=== PATIENT | female | born 1940 | race Caucasian/White ===

== ENCOUNTER → 2016-06-27 | Outpatient (CLI) | payer MEDICARE ==
[2016-06-27 15:27] LABS: Calcium 9.8 mg/dL (8.4-10.2); Potassium 3.9 mmol/L (3.5-5.1); Total Bilirubin 0.6 mg/dL (0.2-1.3); Total Protein 6.8 g/dL (6.3-8.2)
== END | disposition home or self-care (01) ==
LOC: LABWHC1 14:47
PROVIDERS: ATTEND Internal Medicine Interventional Cardiology
DX: E78.2 Mixed hyperlipidemia (principal); I48.0 Paroxysmal atrial fibrillation
CPT/HCPCS: 36415; 80053; 80061; 84443

== ENCOUNTER 2016-07-29 08:51 | Day surgery (SDC) | payer MEDICARE ==
[2016-07-24 14:45] VITALS: BMI 45.6
[~2016-07-29 08:51] MED LIST: ALPRAZolam 0.25 MG TAB PO PRN; ASPIRIN 325 MG TAB PO ONE; SODIUM CHLORIDE 0.9% 1,000 ML in EMPTY BAG 1 BAG IV ONE
[2016-07-29] MEDS ORDERED: ASPIRIN 81 MG CHEW ONE (09:25)
[2016-07-29 09:42] LABS: Glucose,Whole Blood 129 mg/dL (75-99)
[2016-07-29 09:53] VITALS: RESP 18
[2016-07-29 10:06] LABS: Basophils # (A) 0.1 k/uL (0-0.2); Basophils % (A) 1 %; CHCM 33.7; Eosinophils # (A) 0.1 k/uL (0-0.7); Eosinophils % (A) 1 %; HCT 39.9 % (34.0-46.0); HDW 3.62; HGB 12.9 gm/dL (11.4-16.0); Luc # (Auto) 0.25; Luc % (Auto) 2; Lymphocytes # (A) 1.9 k/uL (1.0-4.8); Lymphocytes % (A) 19 %; MCH 28.8 pg (25.0-35.0); MCHC 32.3 g/dL (31.0-37.0); MCV 89.3 fL (80.0-100.0); Mean Platelet Volume 7.1; Monocytes # (A) 0.5 k/uL (0-1.0); Monocytes % (A) 4 %; Neutrophils # (A) 7.6 k/uL (1.3-7.7); Neutrophils % (A) 73 %; Poikilocytosis Slight; RBC 4.46 m/uL (3.80-5.40); RDW 14.8 % (11.5-15.5); WBC 10.5 k/uL (3.8-10.6); WBC (Perox) 10.69
[2016-07-29 10:20] LABS: Anion Gap 11 mmol/L; Blood Urea Nitrogen 22 mg/dL (7-17); Calcium 9.6 mg/dL (8.4-10.2); Carbon Dioxide 34 mmol/L (22-30); Chloride 100 mmol/L (98-107); Glucose 124 mg/dL (74-99); Non-African American GFR(MDRD) 59 (>60 ml/min/1.73 sqM); Potassium 3.8 mmol/L (3.5-5.1); Sodium 145 mmol/L (137-145)
[2016-07-29] MEDS ORDERED: amLODIPine 5 MG TAB PO STA ×2 (10:53→13:31)
[2016-07-29] MEDS ORDERED: amLODIPine 5 MG TAB PO ONE ×2 (11:00→15:55)
[2016-07-29] MEDS ORDERED: SODIUM CHLORIDE 0.9% (PF) 10 ML VIAL ONE (12:11)
[2016-07-29] MEDS ORDERED: fentaNYL (PF) 50 MCG/ML 2 ML AMP ONE (12:11)
[2016-07-29] MEDS ORDERED: VERAPAMIL 2.5 MG/ML 2 ML AMP ONE (12:11)
[2016-07-29] MEDS ORDERED: LIDOCAINE 2% INJ 20 MG/ML (20 ML MDV) ONE (12:11)
[2016-07-29] MEDS ORDERED: fentaNYL (PF) 50 MCG/ML 2 ML AMP IV ONE (12:20)
[2016-07-29] MEDS: LIDOCAINE 2% INJ 20 MG/ML SQ ONE ×2 (12:22→12:36)
[2016-07-29] MEDS ORDERED: HEPARIN SODIUM 1,000 UNIT/ML VIAL ONE (12:22)
[2016-07-29] MEDS ORDERED: VERAPAMIL SYRINGE (5 MG/10 ML) INTRAARTER ONE (12:23)
[2016-07-29] MEDS ORDERED: HEPARIN SODIUM 1,000 UNIT/ML VIAL IV ONE (12:41)
[2016-07-29] MEDS ORDERED: IODIXANOL 320 MG/ML 100 ML INTRAARTER ONE (12:45)
[2016-07-29] MEDS ORDERED: RX INFO: IV CONTRAST WAS GIVEN 1 EACH MISC MISCELLANE PRN (12:53)
[2016-07-29] MEDS ORDERED: SODIUM CHLORIDE 0.9% 1,000 ML IV SCH (13:00)
[2016-07-29] MEDS ORDERED: MECLIZINE 25 MG TAB PO SCH (16:00)
[2016-07-29 17:23] LABS: Glucose,Whole Blood 100 mg/dL (75-99)
[2016-07-29 19:03] VITALS: BP 121/95; PULSE 106
[2016-07-29 19:34] VITALS: TEMP 98
[2016-07-29] MEDS ORDERED: ALBUTEROL INHALER 60 PUFF/8 GM INHALER INHALATION SCH (21:00)
[2016-07-29] MEDS ORDERED: NON-FORMULARY DRUG (Umeclidinium Brm/Vilanterol Tr [Anoro Ellipta 62.5-25 Mcg Inh] 1 PUFF) INHALATION SCH (21:00)
[2016-07-29] MEDS ORDERED: INSULIN GLARGINE 100 UNIT/ML 10 ML VIAL SQ SCH (21:00)
--- NOTE | 2016-07-29 22:35 | CC ---
Mrs. Dominguez is a 76-year-old female with a known history of hypertension and hyperlipidemia and diabetes mellitus, who presented with symptoms of progressive dyspnea and episode of chest discomfort. She had an abnormal myocardial perfusion imaging. In view of that, recommendation made regarding cardiac catheterization. The procedure as well as the risks, benefits and complications were discussed with the patient, who is in full understanding and agreement. PROCEDURE: Patient was brought to the operations label clerk in the fasting semi-sedated state after receiving fentanyl and Benadryl. She was draped and prepped in the conventional fashion. Using Xylocaine anesthesia and Seldinger technique, a 6 Peruvian sheath was introduced in the right radial artery. Attempt to advance the wire in the descending aorta were unsuccessful because of severe tortuosity. At that point, using Xylocaine anesthesia and Seldinger technique, a 6 Peruvian sheath was introduced in right femoral artery. Selective right and left coronary angiography using 6 Peruvian 4 bend right Bobby catheter, multiple views of the coronary arteries, including hemiaxial views, were obtained. Following that, a 6 [place]uvian tight pigtail catheter was introduced into the left ventricle and a 30-degree WADE view of the left ventricle was obtained. Following that, catheter and sheaths were removed. Hemostasis was obtained with deployment of an Angio-Seal and a TR band on the right radial artery. Patient was returned to her room. there was no immediate complication. She received intra-arterial verapamil as well as 5000 units of intravenous heparin. FINDINGS: Left main: This is a large-size vessel bifurcating into the left circumflex, left anterior descending artery. Left main coronary artery is without any obstructive disease. Left anterior descending artery: This was a large-size vessel reaching toward the apex with a wraparound the apex segment, giving rise to a large proximal diagonal branch. The left anterior descending artery proximally has 10% to 20% plaque. The rest of the vessel has no high-grade stenosis. Left circumflex: This is a nondominant vessel, giving rise to 3 obtuse marginal branches. The left circumflex as well as its branches have no evidence of obstructive coronary artery disease. Right coronary artery: This is a large dominant vessel, bifurcating distally into PDA and posterolateral segment and branches, proximally has a 40% plaque. The rest of the vessel has no evidence of high-grade stenosis. LEFT VENTRICULOGRAM: Left ventriculogram was performed in 30-degree WADE view and revealed normal size and systolic function. Ejection fraction was 60%. There is no significant mitral regurgitation. HEMODYNAMICS: There was no gradient across the aortic valve. The left ventricular end-diastolic pressure was 24 mm. CONCLUSION: 1. Mild to moderate disease in proximal right coronary artery with mild disease in the left anterior descending artery. 2. Normal left ventricular size and systolic function. RECOMMENDATIONS: In view of all the findings and anatomy, I recommend continued medical therapy with aggressive risk factor modifications being initiated. Those findings and recommendations were discussed with the patient and her family, who are in full understanding and agreement. BRENDON
--- NOTE | 2016-07-29 22:38 | LTR ---
July 29, 2016 RE: Tamar Dominguez Dear Dr. Alonso: I had the pleasure to perform cardiac catheterization on Mrs. Dominguez at [facility] on the 29 of July and a full copy of the procedure note will be forwarded to you. In brief, she was found to have mild to moderate disease in the proximal right coronary artery and mild disease in the LAD and based on these findings, I have recommended continued medical therapy with aggressive risk factor medications initiated. Thank you again for allowing me to participate in this patient's care. Please feel free to call for any questions. Sincerely yours, VALENTÍN COPPOLA MD
[2016-07-30] MEDS ORDERED: amLODIPine 5 MG TAB PO SCH (09:00)
[2016-07-30] MEDS ORDERED: NON-FORMULARY DRUG (Omeprazole [Omeprazole] 20 MG) PO SCH (09:00)
[2016-07-30] MEDS ORDERED: MULTIVITAMINS, THERA 1 EACH TAB PO SCH (09:00)
[2016-07-30] MEDS ORDERED: NON-FORMULARY DRUG (Aspirin Ec 81 MG) PO SCH (09:00)
[2016-07-30] MEDS ORDERED: CLOPIDOGREL 75 MG TAB PO SCH (09:00)
[2016-07-30] MEDS ORDERED: NON-FORMULARY DRUG (Ubidecarenone [Co Q-10] 200 MG) PO SCH (09:00)
[2016-07-30] MEDS ORDERED: POTASSIUM CHLORIDE 20 MEQ PO SCH (09:00)
[2016-07-30] MEDS ORDERED: LISINOPRIL-HCTZ 20-12.5 MG 1 EACH TAB PO SCH (09:00)
[2016-07-30] MEDS ORDERED: NEBIVOLOL HCL 20 MG PO SCH (09:00)
== END 2016-07-29 19:25 | disposition home or self-care (01) ==
LOC: CATHCVL 08:51
PROVIDERS: ATTEND Internal Medicine Interventional Cardiology
DX: I25.10 Atherosclerotic heart disease of native coronary artery without angina pectoris (principal); I48.0 Paroxysmal atrial fibrillation; Z79.02 Long term (current) use of antithrombotics/antiplatelets; I10 Essential (primary) hypertension; E11.9 Type 2 diabetes mellitus without complications; Z79.4 Long term (current) use of insulin; E78.5 Hyperlipidemia, unspecified; Z82.49 Family history of ischemic heart disease and other diseases of the circulatory system; Z79.82 Long term (current) use of aspirin; Z79.899 Other long term (current) drug therapy; Z88.2 Allergy status to sulfonamides; Z88.7 Allergy status to serum and vaccine; Z91.048 Other nonmedicinal substance allergy status
CPT/HCPCS: 93458; 80048; 85025; 99156; 99157 ×2; C1760; C1894 ×2; C1769 ×2; J2001; Q9967; J3010; J1644

== ENCOUNTER → 2016-08-07 | Outpatient (CLI) | payer MEDICARE ==
--- NOTE | 2016-08-13 10:54 | P.ARTDOP ---
Arterial Doppler Upper EXTREMITY ARTERIAL DOPPLER: DATE OF SERVICE: 08/07/2016 Reason for study: Arm swelling post cath. Doppler waveforms: Multiphasic throughout axillary brachial radial and ulnar. Pulse volume recording: Normal configuration including digits on the right. Pressure gradients: None. No segmental or right to left pressure gradients Digital pressures are normal Impression: Normal upper extremity arterial Doppler limited to the right.
== END | disposition home or self-care (01) ==
LOC: RADUSWWP 12:20
PROVIDERS: ATTEND Internal Medicine Interventional Cardiology
DX: M79.89 Other specified soft tissue disorders (principal)
CPT/HCPCS: 93922

== ENCOUNTER → 2016-11-14 | Outpatient (CLI) | payer MEDICARE ==
[2016-11-14 12:25] LABS: ALT 32 U/L (9-52); AST 19 U/L (14-36); Alkaline Phosphatase 122 U/L (38-126); Anion Gap 9 mmol/L; Blood Urea Nitrogen 21 mg/dL (7-17); Calcium 9.1 mg/dL (8.4-10.2); Carbon Dioxide 28 mmol/L (22-30); Chloride 101 mmol/L (98-107); Cholesterol 132 mg/dL (<200); Glucose 127 mg/dL (74-99); HDL Cholesterol 41 mg/dL (40-60); Non-African American GFR(MDRD) 54 (>60 ml/min/1.73 sqM); Potassium 4.2 mmol/L (3.5-5.1); Sodium 138 mmol/L (137-145); Total Bilirubin 0.9 mg/dL (0.2-1.3); Total Protein 7.1 g/dL (6.3-8.2); Triglycerides 183 mg/dL (<150)
== END | disposition home or self-care (01) ==
LOC: LABWHC1 11:44
PROVIDERS: ATTEND Internal Medicine Interventional Cardiology
DX: I25.10 Atherosclerotic heart disease of native coronary artery without angina pectoris (principal); E78.2 Mixed hyperlipidemia
CPT/HCPCS: 36415; 80053; 80061

== ENCOUNTER 2017-01-16 15:22 | Inpatient (IN) | payer MEDICARE ==
[2017-01-16 15:49] LABS: Glucose,Whole Blood 119 mg/dL (75-99)
[2017-01-16] MEDS: ATROPINE SULFATE 0.1 MG/ML 10ML SYRINGE IV STA ×3 (15:50→20:13)
[2017-01-16 15:59] LABS: Anisocytosis Slight; Basophils % (A) 0 %; CHCM 31.5; Eosinophils # (A) 0.1 k/uL (0-0.7); Eosinophils % (A) 0 %; HDW 2.75; HGB 11.6 gm/dL (11.4-16.0); Hypochromasia Slight; Luc # (Auto) 0.19; Luc % (Auto) 1; Lymphocytes % (A) 5 %; MCH 29.8 pg (25.0-35.0); MCHC 32.3 g/dL (31.0-37.0); MCV 92.3 fL (80.0-100.0); Mean Platelet Volume 9.2; Monocytes # (A) 0.6 k/uL (0-1.0); Monocytes % (A) 3 %; Neutrophils % (A) 91 %; RDW 16.7 % (11.5-15.5); WBC 20.9 k/uL (3.8-10.6); WBC (Perox) 20.64
--- NOTE | 2017-01-16 16:00 | ED ---
General Adult HPI - General Chief complaint: Arrhythmia/Palpitations Stated complaint: Altered Mental Status Time Seen by Provider: 01/16/17 15:25 Source: patient, EMS, RN notes reviewed Mode of arrival: EMS Limitations: altered mental status - History of Present Illness Initial comments: Patient is a pleasant 76-year-old female presenting to the emergency department by EMS for drowsiness. Patient states she feels fatigued and drowsy however has no other complaints. Patient is overall a poor historian. Patient denies any chest pain or dyspnea. EMS reports heart rate in the 30s. EMS was unable to obtain IV access. Symptoms have been present for the past few days. Patient denies dyspnea. EMS did get systolic blood pressure over 100 on 2 occasions. - Related Data Home Medications Medication Instructions Recorded Confirmed Albuterol Inhaler [Ventolin Hfa 2 puff INHALATION RT-Q4H PRN 04/29/16 01/16/17 Inhaler] Aspirin EC [Ecotrin Low Dose] 81 mg PO DAILY 04/29/16 01/16/17 Omeprazole 20 mg PO DAILY 04/29/16 01/16/17 Furosemide [Lasix] 40 mg PO DAILY 07/24/16 01/16/17 Insulin Lispro [humaLOG Kwikpen] See Protocol SQ AC-TID PRN 07/24/16 01/16/17 Meclizine [Antivert] 25 mg PO TID 07/24/16 01/16/17 Nebivolol HCl [Bystolic] 20 mg PO DAILY 07/24/16 01/16/17 Albuterol Nebulized [Ventolin 2.5 mg INHALATION RT-Q4H PRN 01/16/17 01/16/17 Nebulized] Allopurinol [Zyloprim] 300 mg PO DAILY 01/16/17 01/16/17 Amiodarone [Cordarone] 200 mg PO BID 01/16/17 01/16/17 Atorvastatin [Lipitor] 40 mg PO DAILY 01/16/17 01/16/17 Isosorbide Mononitrate ER [Imdur] 30 mg PO DAILY 01/16/17 01/16/17 Levothyroxine Sodium [Synthroid] 75 mcg PO DAILY 01/16/17 01/16/17 Lisinopril 30 mg PO DAILY 01/16/17 01/16/17 Loratadine [Claritin] 10 mg PO DAILY 01/16/17 01/16/17 Potassium Chloride [Klor-Con 20] 20 meq PO DAILY 01/16/17 01/16/17 Rivaroxaban [Xarelto] 15 mg PO DAILY 01/16/17 01/16/17 Spironolactone [Aldactone] 50 mg PO DAILY 01/16/17 01/16/17 Previous Rx's Medication Instructions Recorded Insulin Glargine [Lantus] 40 unit SQ HS #1 vial 05/07/16 amLODIPine [Norvasc] 5 mg PO DAILY #90 tab 07/29/16 Allergies Allergy/AdvReac Type Severity Reaction Status Date / Time iron Allergy Rash/Hives Verified 07/29/16 09:23 Sulfa (Sulfonamide Allergy Rash/Hives Verified 07/29/16 09:23 Antibiotics) Tetanus Vaccines and Toxoid Allergy Swelling Verified 07/29/16 09:23 Review of Systems ROS Statement: Those systems with pertinent positive or pertinent negative responses have been documented in the HPI. ROS Other: All systems not noted in ROS Statement are negative. Constitutional: Denies: fever Eyes: Denies: eye pain ENT: Denies: ear pain Respiratory: Denies: cough, dyspnea Cardiovascular: Denies: chest pain, palpitations Endocrine: Reports: fatigue Gastrointestinal: Denies: abdominal pain Genitourinary: Denies: dysuria Musculoskeletal: Denies: back pain Skin: Denies: rash Neurological: Denies: headache Past Medical History Past Medical History: Atrial Fibrillation, COPD, Diabetes Mellitus, Deep Vein Thrombosis (DVT), GERD/Reflux, Hyperlipidemia, Hypertension, Osteoarthritis (OA) , Rheumatoid Arthritis (RA), Thyroid Disorder Additional Past Medical History / Comment(s): migraines, "bleeding in kidney" History of Any Multi-Drug Resistant Organisms: None Reported Past Surgical History: Hysterectomy, Joint Replacement, Orthopedic Surgery Additional Past Surgical History / Comment(s): rt knee replacement, heel spur left foot, sanjana cataracts Past Anesthesia/Blood Transfusion Reactions: No Reported Reaction Past Psychological History: No Psychological Hx Reported Smoking Status: Former smoker Past Alcohol Use History: None Reported Past Drug Use History: None Reported - Past Family History Mother Family Medical History: No Reported History General Exam Limitations: altered mental status General appearance: alert Head exam: Present: atraumatic Eye exam: Present: normal appearance, PERRL ENT exam: Present: normal oropharynx Neck exam: Present: normal inspection Respiratory exam: Present: rales (Mild bilateral bases) Cardiovascular Exam: Present: bradycardia GI/Abdominal exam: Present: soft. Absent: tenderness Extremities exam: Present: pedal edema Neurological exam: Present: alert. Absent: motor sensory deficit Expanded Patient oriented to: Present: person, place. Absent: time Psychiatric exam: Present: normal affect, normal mood Skin exam: Present: normal color Course Vital Signs 01/16/17 01/16/17 01/16/17 15:35 15:52 15:55 Temperature 96.5 F L Pulse Rate 30 L 40 L 38 L Respiratory 18 18 18 Rate Blood Pressure 68/42 98/52 106/49 01/16/17 01/16/17 01/16/17 15:58 16:21 16:26 Temperature Pulse Rate 29 L 30 L 32 L Respiratory 18 18 18 Rate Blood Pressure 95/53 89/53 01/16/17 01/16/17 01/16/17 16:28 16:35 16:43 Temperature Pulse Rate 38 L 37 L 39 L Respiratory 18 18 18 Rate Blood Pressure 108/50 104/54 117/56 - Reevaluation(s) Reevaluation #1: 01/16/17 15:57 Cardiology has been paged Systolic blood pressure 96 then 108 following 0.5 of atropine. Heart rate 38. 01/16/17 16:03 Case was discussed in detail with Dr. Dozier who does recommend starting dopamine at 5. 01/16/17 16:20 Patient was seen by Dr. Dozier in emergency Department who is interested and electrolytes and concern regarding potassium. He feels rhythm is likely junctional bradycardia rather than true third-degree heart block. Case was discussed with Dr. Martinez, who will admit for Dr. Alonso. Dr. Voss has been paged as requested for critical care consult. 01/16/17 16:49 Case was discussed with Dr. Voss, who will consult. Case was also discussed with Dr. Barber. She does request consult with Dr. Carmichael for line placement and will have dialysis done following this. 01/16/17 16:56 Case also discussed with Dr. Carmichael who will come to evaluate patient. Family is now present and family has been updated. EKG Findings - EKG Comments: EKG Findings:: 33 heart block with a rate of 30. QRS 126. QT 564. QTC 398. Left axis. Nonspecific intraventricular block. Prominent T waves. Medical Decision Making - Lab Data Result diagrams: 01/16/17 15:45 01/16/17 15:45 Lab Results 01/16/17 01/16/17 01/16/17 Range/Units 15:29 15:45 15:45 WBC 20.9 H (3.8-10.6) k/uL RBC 3.90 (3.80-5.40) m/uL Hgb 11.6 (11.4-16.0) gm/dL Hct 36.0 (34.0-46.0) % MCV 92.3 (80.0-100.0) fL MCH 29.8 (25.0-35.0) pg MCHC 32.3 (31.0-37.0) g/dL RDW 16.7 H (11.5-15.5) % Plt Count 350 (150-450) k/uL Neutrophils % 91 % Lymphocytes % 5 % Monocytes % 3 % Eosinophils % 0 % Basophils % 0 % Neutrophils # 19.0 H (1.3-7.7) k/uL Lymphocytes # 1.0 (1.0-4.8) k/uL Monocytes # 0.6 (0-1.0) k/uL Eosinophils # 0.1 (0-0.7) k/uL Basophils # 0.0 (0-0.2) k/uL Hypochromasia Slight Anisocytosis Slight APTT (22.0-30.0) sec Sodium (137-145) mmol/L Potassium (3.5-5.1) mmol/L Chloride (98-107) mmol/L Carbon Dioxide (22-30) mmol/L Anion Gap mmol/L BUN (7-17) mg/dL Creatinine (0.52-1.04) mg/dL Est GFR (MDRD) Af Amer (>60 ml/min/1.73 sqM) Est GFR (MDRD) Non-Af (>60 ml/min/1.73 sqM) Glucose (74-99) mg/dL POC Glucose (mg/dL) 119 H (75-99) mg/dL POC Glu Lunch Counter Manager ID Francois, Snow Calcium (8.4-10.2) mg/dL Magnesium (1.6-2.3) mg/dL Total Bilirubin (0.2-1.3) mg/dL AST (14-36) U/L ALT (9-52) U/L Alkaline Phosphatase (38-126) U/L Total Creatine Kinase 193 H (30-135) U/L CK-MB (CK-2) 2.1 (0.0-2.4) ng/mL CK-MB (CK-2) Rel Index 1.1 Troponin I <0.012 (0.000-0.034) ng/mL Total Protein (6.3-8.2) g/dL Albumin (3.5-5.0) g/dL TSH (0.465-4.680) mIU/L Free T4 (0.78-2.19) ng/dL Free T3 pg/mL (2.8-5.3) pg/ml 01/16/17 01/16/17 Range/Units 15:45 15:45 WBC (3.8-10.6) k/uL RBC (3.80-5.40) m/uL Hgb (11.4-16.0) gm/dL Hct (34.0-46.0) % MCV (80.0-100.0) fL MCH (25.0-35.0) pg MCHC (31.0-37.0) g/dL RDW (11.5-15.5) % Plt Count (150-450) k/uL Neutrophils % % Lymphocytes % % Monocytes % % Eosinophils % % Basophils % % Neutrophils # (1.3-7.7) k/uL Lymphocytes # (1.0-4.8) k/uL Monocytes # (0-1.0) k/uL Eosinophils # (0-0.7) k/uL Basophils # (0-0.2) k/uL Hypochromasia Anisocytosis APTT 32.1 H (22.0-30.0) sec Sodium 133 L (137-145) mmol/L Potassium 7.8 H* (3.5-5.1) mmol/L Chloride 104 (98-107) mmol/L Carbon Dioxide 9 L* (22-30) mmol/L Anion Gap 20 mmol/L BUN 191 H* (7-17) mg/dL Creatinine 8.80 H* (0.52-1.04) mg/dL Est GFR (MDRD) Af Amer 5 (>60 ml/min/1.73 sqM) Est GFR (MDRD) Non-Af 4 (>60 ml/min/1.73 sqM) Glucose 126 H (74-99) mg/dL POC Glucose (mg/dL) (75-99) mg/dL POC Glu Lunch Counter Manager ID Calcium 9.6 (8.4-10.2) mg/dL Magnesium 2.7 H (1.6-2.3) mg/dL Total Bilirubin 0.2 (0.2-1.3) mg/dL AST 17 (14-36) U/L ALT 45 (9-52) U/L Alkaline Phosphatase 106 (38-126) U/L Total Creatine Kinase (30-135) U/L CK-MB (CK-2) (0.0-2.4) ng/mL CK-MB (CK-2) Rel Index Troponin I (0.000-0.034) ng/mL Total Protein 7.0 (6.3-8.2) g/dL Albumin 4.2 (3.5-5.0) g/dL TSH 8.090 H (0.465-4.680) mIU/L Free T4 1.29 (0.78-2.19) ng/dL Free T3 pg/mL 2.3 L (2.8-5.3) pg/ml - Radiology Data Radiology results: image reviewed (1 view chest x-ray does show stable cardiomegaly. Right hilum prominence again noted.) Critical Care Time Critical Care Time: Yes Total Critical Care Time: 60 Disposition Clinical Impression: Acute renal failure (ARF), Symptomatic bradycardia, Hyperkalemia Disposition: ADMITTED IP TO THIS [facility] Condition: Critical Referrals: Linnea Alonso DO [Primary Care Provider] - 1-2 days Decision Time: 16:57
[2017-01-16 16:02] LABS: Calcium 9.6 mg/dL (8.4-10.2); Magnesium 2.7 mg/dL (1.6-2.3); Total Bilirubin 0.2 mg/dL (0.2-1.3)
[2017-01-16] MEDS ORDERED: DOPamine DRIP 800 MG in DEXTROSE/WATER 1 500ML.BAG IV ONE (16:02)
--- NOTE | 2017-01-16 16:10 | XR ---
EXAMINATION TYPE: XR chest 1V portable DATE OF EXAM: 01/16/2017 COMPARISON: Prior chest x-ray 05/04/2016 HISTORY: Dysrhythmia TECHNIQUE: Single frontal view of the chest is obtained. FINDINGS: Similar findings are noted. The heart is enlarged. Patient is rotated. No evident pneumoth orax or pleural effusion. Pulmonary vascularity and rebecca are stable. There are overlying defibrillato r pad and leads. IMPRESSION: Stable cardiomegaly. There may be underlying pulmonary artery hypertension, prominence o f the right hilum again noted, exam is rotated, follow-up recommended.
[2017-01-16] MEDS ORDERED: ATROPINE SULFATE 0.1 MG/ML 10ML SYRINGE IV STA (16:16)
[2017-01-16] MEDS ORDERED: METOCLOPRAMIDE 5 MG/ML 2 ML VIAL IVP STA (16:23)
[2017-01-16 16:27] LABS: Potassium 7.8 mmol/L (3.5-5.1)
[2017-01-16 16:30] LABS: Creatine Kinase 193 U/L (30-135)
[2017-01-16] MEDS ORDERED: INSULIN REGULAR 100 UNIT/ML VIAL IV ONE (16:30)
[2017-01-16] MEDS ORDERED: DEXTROSE 50%-WATER 50 ML SYRINGE IVP STA (16:31)
[2017-01-16] MEDS ORDERED: ALBUTEROL NEBULIZED 2.5 MG/3 ML INHALATION STA (16:31)
[2017-01-16] MEDS ORDERED: SODIUM CHLORIDE 0.9% 1,000 ML IV STA (16:33)
[2017-01-16] MEDS ORDERED: SODIUM BICARB 8.4% 50 ML SYR (1 MEQ/ML) IV STA (16:33)
[2017-01-16] MEDS ORDERED: FUROSEMIDE 10 MG/ML 4 ML VIAL IV STA (16:35)
[2017-01-16 16:43] LABS: Creatine Kinase MB 2.1 ng/mL (0.0-2.4); Troponin I <0.012 ng/mL (0.000-0.034)
[2017-01-16] MEDS ORDERED: NALOXONE 0.4 MG/ML 1 ML VIAL IV PRN (16:57)
[2017-01-16] MEDS ORDERED: CALCIUM GLUCONATE 1,000 MG in SODIUM CHLORIDE 0.9% 100 ML IVPB ONE ×2 (17:00→21:12)
--- NOTE | 2017-01-16 17:55 | P.CRDCN ---
History of Present Illness Consult date: 01/16/17 History of present illness: His is a 76-year-old female who came to the emergency room brought on by EMS for drowsiness. Apparently patient was called to assess the patient because of patient's fatigue and drowsiness. On arrival the EMS found the patient has a slow heart rate in the 30s. Blood pressure has been low, though they could record blood pressure of 100 and couple of occasions. In the emergency room patient remained in bradycardia. Patient was given atropine with mild response. Blood pressure is about 100 systolic. Patient seemed to be drowsy and lethargic and unable to give any detailed history. She is able to follow commands. Her rhythm showed absence of P waves with slow junctional rhythm with peaked T waves in anterior leads, highly size to hyperkalemia. Lab work subsequent to confirm that patient had acute renal failure with a creatinine about 8 and potassium of 7.8. He had a physician called us think that patient had third-degree heart block but close evaluation. EKG was not consistent with third-degree heart block. Patient was initially started on IV dopamine. He emergency room. Patient was advised to give the IV sodium bicarbonate, calcium and also insulin with glucose. A stat nephrology consult is requested for possible dialysis. Spoke with the family and explain the clinical situation. Patient is also found to be on amiodarone along with Aldactone. Those medications will be held for now. Further recommendations depend upon clinical course. Prognosis is guarded Review of Systems Not obtained Past Medical History Past Medical History: Atrial Fibrillation, COPD, Diabetes Mellitus, Deep Vein Thrombosis (DVT), GERD/Reflux, Hyperlipidemia, Hypertension, Osteoarthritis (OA) , Rheumatoid Arthritis (RA), Thyroid Disorder Additional Past Medical History / Comment(s): migraines, "bleeding in kidney" History of Any Multi-Drug Resistant Organisms: None Reported Past Surgical History: Hysterectomy, Joint Replacement, Orthopedic Surgery Additional Past Surgical History / Comment(s): rt knee replacement, heel spur left foot, sanjana cataracts Past Anesthesia/Blood Transfusion Reactions: No Reported Reaction Past Psychological History: No Psychological Hx Reported Smoking Status: Former smoker Past Alcohol Use History: None Reported Past Drug Use History: None Reported - Past Family History Mother Family Medical History: No Reported History Medications and Allergies Home Medications Medication Instructions Recorded Confirmed Type Albuterol Inhaler [Ventolin Hfa 2 puff INHALATION RT-Q4H PRN 04/29/16 01/16/17 History Inhaler] Aspirin EC [Ecotrin Low Dose] 81 mg PO DAILY 04/29/16 01/16/17 History Omeprazole 20 mg PO DAILY 04/29/16 01/16/17 History Furosemide [Lasix] 40 mg PO DAILY 07/24/16 01/16/17 History Insulin Lispro [humaLOG Kwikpen] See Protocol SQ AC-TID PRN 07/24/16 01/16/17 History Meclizine [Antivert] 25 mg PO TID 07/24/16 01/16/17 History Nebivolol HCl [Bystolic] 20 mg PO DAILY 07/24/16 01/16/17 History Albuterol Nebulized [Ventolin 2.5 mg INHALATION RT-Q4H PRN 01/16/17 01/16/17 History Nebulized] Allopurinol [Zyloprim] 300 mg PO DAILY 01/16/17 01/16/17 History Amiodarone [Cordarone] 200 mg PO BID 01/16/17 01/16/17 History Atorvastatin [Lipitor] 40 mg PO DAILY 01/16/17 01/16/17 History Isosorbide Mononitrate ER [Imdur] 30 mg PO DAILY 01/16/17 01/16/17 History Levothyroxine Sodium [Synthroid] 75 mcg PO DAILY 01/16/17 01/16/17 History Lisinopril 30 mg PO DAILY 01/16/17 01/16/17 History Loratadine [Claritin] 10 mg PO DAILY 01/16/17 01/16/17 History Potassium Chloride [Klor-Con 20] 20 meq PO DAILY 01/16/17 01/16/17 History Rivaroxaban [Xarelto] 15 mg PO DAILY 01/16/17 01/16/17 History Spironolactone [Aldactone] 50 mg PO DAILY 01/16/17 01/16/17 History Allergies Allergy/AdvReac Type Severity Reaction Status Date / Time iron Allergy Rash/Hives Verified 07/29/16 09:23 Sulfa (Sulfonamide Allergy Rash/Hives Verified 07/29/16 09:23 Antibiotics) Tetanus Vaccines and Toxoid Allergy Swelling Verified 07/29/16 09:23 Physical Exam Vitals: Vital Signs Temp Pulse Resp BP 01/16/17 16:54 38 L 18 104/52 01/16/17 16:43 39 L 18 117/56 01/16/17 16:35 37 L 18 104/54 01/16/17 16:28 38 L 18 108/50 01/16/17 16:26 32 L 18 89/53 01/16/17 16:21 30 L 18 95/53 01/16/17 15:58 29 L 18 01/16/17 15:55 38 L 18 106/49 01/16/17 15:52 40 L 18 98/52 01/16/17 15:35 96.5 F L 30 L 18 68/42 Intake and Output 01/16/17 01/16/17 01/16/17 06:59 14:59 22:59 Other: Weight 131.088 kg Patient Weight 01/17/17 06:59 Weight 131.088 kg GENERAL EXAM: Patient is awake, following simple commands but seemed to be disoriented. HEENT: Normocephalic. NECK: No masses, no nuchal rigidity. CHEST: No chest wall deformity. LUNGS: Rales of the right base HEART: Distant heart sounds. No murmurs could be appreciated ABDOMEN: Soft SKIN: No rashes CENTRAL NERVOUS SYSTEM: Lethargic. Able to move all extremities EXTREMITIES: No cyanosis, clubbing or edema. Results 01/16/17 15:45 01/16/17 15:45 Cardiac Enzymes 01/16/17 01/16/17 Range/Units 15:45 15:45 AST 17 (14-36) U/L CK-MB (CK-2) 2.1 (0.0-2.4) ng/mL Troponin I <0.012 (0.000-0.034) ng/mL Coagulation 01/16/17 Range/Units 15:45 APTT 32.1 H (22.0-30.0) sec CBC 01/16/17 Range/Units 15:45 WBC 20.9 H (3.8-10.6) k/uL RBC 3.90 (3.80-5.40) m/uL Hgb 11.6 (11.4-16.0) gm/dL Hct 36.0 (34.0-46.0) % Plt Count 350 (150-450) k/uL Comprehensive Metabolic Panel 01/16/17 Range/Units 15:45 Sodium 133 L (137-145) mmol/L Potassium 7.8 H* (3.5-5.1) mmol/L Chloride 104 (98-107) mmol/L Carbon Dioxide 9 L* (22-30) mmol/L BUN 191 H* (7-17) mg/dL Creatinine 8.80 H* (0.52-1.04) mg/dL Glucose 126 H (74-99) mg/dL Calcium 9.6 (8.4-10.2) mg/dL AST 17 (14-36) U/L ALT 45 (9-52) U/L Alkaline Phosphatase 106 (38-126) U/L Total Protein 7.0 (6.3-8.2) g/dL Albumin 4.2 (3.5-5.0) g/dL Current Medications Generic Name Dose Route Start Last Admin Trade Name Freq PRN Reason Stop Dose Admin Calcium Gluconate 1,000 mg/ 110 mls @ 100 mls/hr 01/16/17 17:00 01/16/17 16: 58 Sodium Chloride IVPB 01/16/17 18:05 100 mls/hr ONCE ONE Administration Sodium Chloride 1,000 mls @ 100 mls/hr 01/16/17 17:00 Saline 0.9% IV .Q10H ANATOLY Naloxone HCl 0.2 mg 01/16/17 16:57 Narcan IV Q2M PRN Opioid Reversal Pantoprazole Sodium 40 mg 01/17/17 09:00 Protonix IV DAILY ANATOLY Intake and Output 01/16/17 01/16/17 01/16/17 06:59 14:59 22:59 Other: Weight 131.088 kg Patient Weight 01/17/17 06:59 Weight 131.088 kg 01/16/17 15:45 01/16/17 15:45 EKG Interpretations (text) Junctional bradycardia with hyperacute T waves, consistent with hyperkalemia, widened QRS Assessment and Plan (1) History of atrial fibrillation Status: Acute (2) Acute renal failure (ARF) Status: Acute (3) Hyperkalemia Status: Acute Plan: Patient to be given medications for it. Hyperkalemia including IV sodium bicarb , calcium and combination of insulin and sugar. Stat nephrology consult for possible dialysis. Prognosis is guarded. We'll hold amiodarone and Aldactone
[2017-01-16 18:14] LABS: INR 1.3 (<1.2); Prothrombin Time 12.8 sec (9.0-12.0)
[2017-01-16 18:52] LABS: Glucose,Whole Blood 159 mg/dL (75-99)
[2017-01-16 19:40] LABS: Appearance,Urine Turbid (Clear); Bacteria,Urine Many /hpf; Bilirubin,Urine Negative (Negative); Glucose,Urine (UA) Negative (Negative); Ketones,Urine Negative (Negative); Leukocyte Esterase,Urine Large (Negative); Nitrite,Urine Negative (Negative); PH, Urine 5.5 (5.0-8.0); Particle Count 46737; Protein,Urine 2+ (Negative); RBC,Urine 20 /hpf (0-5); Specific Gravity,Urine 1.016 (1.001-1.035); UA Billing (MACRO vs. MICRO) MICRO; Urobilinogen,Urine <2.0 mg/dL (<2.0); WBC,Urine >182 /hpf (0-5)
[2017-01-16] MEDS: SODIUM CHLORIDE 0.9% 1,000 ML IV SCH (20:14)
[2017-01-16] MEDS ORDERED: SODIUM BICARB 8.4% 50 ML SYR (1 MEQ/ML) IV ONE (21:30)
[2017-01-16] MEDS: DOPamine DRIP 800 MG in DEXTROSE/WATER 1 500ML.BAG IV SCH (22:18)
--- NOTE | 2017-01-16 23:18 | P.CON ---
Consult Note - . Consult date: 01/16/17 Assessment/Plan:: *Live* [facility] [address], [place] [address] Critical care consult Patient Name: Tamar Dominguez Date of : 1940 Patient Status: Inpatient Attending Provider: Chilo Gonzalez General Adult HPI - General Chief complaint: Arrhythmia/Palpitations Stated complaint: Altered Mental Status Source: patient, EMS, RN notes reviewed Mode of arrival: EMS Limitations: altered mental status - History of Present Illness Initial comments: Patient is a pleasant 76-year-old female presenting to the emergency department by EMS for drowsiness. Patient states she feels fatigued and drowsy however has no other complaints. Patient is overall a poor historian. Patient denies any chest pain or dyspnea. EMS reports heart rate in the 30s. EMS was unable to obtain IV access. Symptoms have been present for the past few days. Patient denies dyspnea. EMS did get systolic blood pressure over 100 on 2 occasions, patient underwent emergent hemodialysis catheter in the groin by vascular surgery undergoing hemodialysis she remains significantly bradycardic and hypotensive in spite of 5 mics of dopamine will require use of dopamine drip given the presence of very poor IV access is will likely need a central line, given that hemodialysis is in progress will let the dialysis finished, Of note In the emergency room patient remained in bradycardia. Patient was given atropine with mild response. Blood pressure is about 100 systolic. Her rhythm showed absence of P waves with slow junctional rhythm with peaked T waves in anterior leads, highly size to hyperkalemia. Lab work subsequent to confirm that patient had acute renal failure with a creatinine about 8 and potassium of 7.8. Patient has received IV sodium bicarbonate, calcium and also insulin with glucose. A stat nephrology consult is requested for possible dialysis, and a vascular surgery for a hemodialysis catheter placement. Patient is also found to be on amiodarone along with Aldactone. Those medications will be held for now. Further recommendations depend upon clinical course. Prognosis is guarded - Related Data Home Medications Medication Instructions Recorded Confirmed Albuterol Inhaler [Ventolin Hfa 2 puff INHALATION RT-Q4H PRN 04/29/16 01/16/17 Inhaler] Aspirin EC [Ecotrin Low Dose] 81 mg PO DAILY 04/29/16 01/16/17 Omeprazole 20 mg PO DAILY 04/29/16 01/16/17 Furosemide [Lasix] 40 mg PO DAILY 07/24/16 01/16/17 Insulin Lispro [humaLOG Kwikpen] See Protocol SQ AC-TID PRN 07/24/16 01/16/17 Meclizine [Antivert] 25 mg PO TID 07/24/16 01/16/17 Nebivolol HCl [Bystolic] 20 mg PO DAILY 07/24/16 01/16/17 Albuterol Nebulized [Ventolin 2.5 mg INHALATION RT-Q4H PRN 01/16/17 01/16/17 Nebulized] Allopurinol [Zyloprim] 300 mg PO DAILY 01/16/17 01/16/17 Amiodarone [Cordarone] 200 mg PO BID 01/16/17 01/16/17 Atorvastatin [Lipitor] 40 mg PO DAILY 01/16/17 01/16/17 Isosorbide Mononitrate ER [Imdur] 30 mg PO DAILY 01/16/17 01/16/17 Levothyroxine Sodium [Synthroid] 75 mcg PO DAILY 01/16/17 01/16/17 Lisinopril 30 mg PO DAILY 01/16/17 01/16/17 Loratadine [Claritin] 10 mg PO DAILY 01/16/17 01/16/17 Potassium Chloride [Klor-Con 20] 20 meq PO DAILY 01/16/17 01/16/17 Rivaroxaban [Xarelto] 15 mg PO DAILY 01/16/17 01/16/17 Spironolactone [Aldactone] 50 mg PO DAILY 01/16/17 01/16/17 Previous Rx's Medication Instructions Recorded Insulin Glargine [Lantus] 40 unit SQ HS #1 vial 05/07/16 amLODIPine [Norvasc] 5 mg PO DAILY #90 tab 07/29/16 Allergies Allergy/AdvReac Type Severity Reaction Status Date / Time iron Allergy Rash/Hives Verified 07/29/16 09:23 Sulfa (Sulfonamide Allergy Rash/Hives Verified 07/29/16 09:23 Antibiotics) Tetanus Vaccines and Toxoid Allergy Swelling Verified 07/29/16 09:23 Review of Systems ROS Statement: Those systems with pertinent positive or pertinent negative responses have been documented in the HPI. ROS Other: All systems not noted in ROS Statement are negative. Constitutional: Denies: fever Eyes: Denies: eye pain ENT: Denies: ear pain Respiratory: Denies: cough, dyspnea Cardiovascular: Denies: chest pain, palpitations Endocrine: Reports: fatigue Gastrointestinal: Denies: abdominal pain Genitourinary: Denies: dysuria Musculoskeletal: Denies: back pain Skin: Denies: rash Neurological: Denies: headache Past Medical History Past Medical History: Atrial Fibrillation, COPD, Diabetes Mellitus, Deep Vein Thrombosis (DVT), GERD/Reflux, Hyperlipidemia, Hypertension, Osteoarthritis (OA) , Rheumatoid Arthritis (RA), Thyroid Disorder Additional Past Medical History / Comment(s): migraines, "bleeding in kidney" History of Any Multi-Drug Resistant Organisms: None Reported Past Surgical History: Hysterectomy, Joint Replacement, Orthopedic Surgery Additional Past Surgical History / Comment(s): rt knee replacement, heel spur left foot, sanjana cataracts Past Anesthesia/Blood Transfusion Reactions: No Reported Reaction Past Psychological History: No Psychological Hx Reported Smoking Status: Former smoker Past Alcohol Use History: None Reported Past Drug Use History: None Reported - Past Family History Mother Family Medical History: No Reported History General Exam Limitations: altered mental status General appearance: alert Head exam: Present: atraumatic Eye exam: Present: normal appearance, PERRL ENT exam: Present: normal oropharynx very dry oropharynx Neck exam: Present: normal inspection Respiratory exam: Present: rales (Mild bilateral bases) Cardiovascular Exam: Present: bradycardia GI/Abdominal exam: Present: soft. Absent: tenderness some urine output and urine is noted in the bag very turbid Extremities exam: Present: pedal edema Neurological exam: Present: alert. Absent: motor sensory deficit Expanded Patient oriented to: Present: person, place. Absent: time Psychiatric exam: Present: normal affect, normal mood Skin exam: Present: normal color Course Vital Signs 01/16/17 01/16/17 01/16/17 15:35 15:52 15:55 Temperature 96.5 F L Pulse Rate 30 L 40 L 38 L Respiratory 18 18 18 Rate Blood Pressure 68/42 98/52 106/49 01/16/17 01/16/17 01/16/17 15:58 16:21 16:26 Temperature Pulse Rate 29 L 30 L 32 L Respiratory 18 18 18 Rate Blood Pressure 95/53 89/53 01/16/17 01/16/17 01/16/17 16:28 16:35 16:43 Temperature Pulse Rate 38 L 37 L 39 L Respiratory 18 18 18 Rate Blood Pressure 108/50 104/54 117/56 - EKG Comments: EKG Findings:: 33 heart block with a rate of 30. QRS 126. QT 564. QTC 398. Left axis. Nonspecific intraventricular block. Prominent T waves. - Lab Data Result diagrams: 01/16/17 15:45 01/16/17 15:45 Lab Results 01/16/17 01/16/17 01/16/17 Range/Units 15:29 15:45 15:45 WBC 20.9 H (3.8-10.6) k/uL RBC 3.90 (3.80-5.40) m/uL Hgb 11.6 (11.4-16.0) gm/dL Hct 36.0 (34.0-46.0) % MCV 92.3 (80.0-100.0) fL MCH 29.8 (25.0-35.0) pg MCHC 32.3 (31.0-37.0) g/dL RDW 16.7 H (11.5-15.5) % Plt Count 350 (150-450) k/uL Neutrophils % 91 % Lymphocytes % 5 % Monocytes % 3 % Eosinophils % 0 % Basophils % 0 % Neutrophils # 19.0 H (1.3-7.7) k/uL Lymphocytes # 1.0 (1.0-4.8) k/uL Monocytes # 0.6 (0-1.0) k/uL Eosinophils # 0.1 (0-0.7) k/uL Basophils # 0.0 (0-0.2) k/uL Hypochromasia Slight Anisocytosis Slight APTT (22.0-30.0) sec Sodium (137-145) mmol/L Potassium (3.5-5.1) mmol/L Chloride (98-107) mmol/L Carbon Dioxide (22-30) mmol/L Anion Gap mmol/L BUN (7-17) mg/dL Creatinine (0.52-1.04) mg/dL Est GFR (MDRD) Af Amer (>60 ml/min/1.73 sqM) Est GFR (MDRD) Non-Af (>60 ml/min/1.73 sqM) Glucose (74-99) mg/dL POC Glucose (mg/dL) 119 H (75-99) mg/dL POC Glu Layout Former [place] Calcium (8.4-10.2) mg/dL Magnesium (1.6-2.3) mg/dL Total Bilirubin (0.2-1.3) mg/dL AST (14-36) U/L ALT (9-52) U/L Alkaline Phosphatase (38-126) U/L Total Creatine Kinase 193 H (30-135) U/L CK-MB (CK-2) 2.1 (0.0-2.4) ng/mL CK-MB (CK-2) Rel Index 1.1 Troponin I <0.012 (0.000-0.034) ng/mL Total Protein (6.3-8.2) g/dL Albumin (3.5-5.0) g/dL TSH (0.465-4.680) mIU/L Free T4 (0.78-2.19) ng/dL Free T3 pg/mL (2.8-5.3) pg/ml 01/16/17 01/16/17 Range/Units 15:45 15:45 WBC (3.8-10.6) k/uL RBC (3.80-5.40) m/uL Hgb (11.4-16.0) gm/dL Hct (34.0-46.0) % MCV (80.0-100.0) fL MCH (25.0-35.0) pg MCHC (31.0-37.0) g/dL RDW (11.5-15.5) % Plt Count (150-450) k/uL Neutrophils % % Lymphocytes % % Monocytes % % Eosinophils % % Basophils % % Neutrophils # (1.3-7.7) k/uL Lymphocytes # (1.0-4.8) k/uL Monocytes # (0-1.0) k/uL Eosinophils # (0-0.7) k/uL Basophils # (0-0.2) k/uL Hypochromasia Anisocytosis APTT 32.1 H (22.0-30.0) sec Sodium 133 L (137-145) mmol/L Potassium 7.8 H* (3.5-5.1) mmol/L Chloride 104 (98-107) mmol/L Carbon Dioxide 9 L* (22-30) mmol/L Anion Gap 20 mmol/L BUN 191 H* (7-17) mg/dL Creatinine 8.80 H* (0.52-1.04) mg/dL Est GFR (MDRD) Af Amer 5 (>60 ml/min/1.73 sqM) Est GFR (MDRD) Non-Af 4 (>60 ml/min/1.73 sqM) Glucose 126 H (74-99) mg/dL POC Glucose (mg/dL) (75-99) mg/dL POC Glu Layout Former ID Calcium 9.6 (8.4-10.2) mg/dL Magnesium 2.7 H (1.6-2.3) mg/dL Total Bilirubin 0.2 (0.2-1.3) mg/dL AST 17 (14-36) U/L ALT 45 (9-52) U/L Alkaline Phosphatase 106 (38-126) U/L Total Creatine Kinase (30-135) U/L CK-MB (CK-2) (0.0-2.4) ng/mL CK-MB (CK-2) Rel Index Troponin I (0.000-0.034) ng/mL Total Protein 7.0 (6.3-8.2) g/dL Albumin 4.2 (3.5-5.0) g/dL TSH 8.090 H (0.465-4.680) mIU/L Free T4 1.29 (0.78-2.19) ng/dL Free T3 pg/mL 2.3 L (2.8-5.3) pg/ml - Radiology Data Radiology results: image reviewed (1 view chest x-ray does show stable cardiomegaly. Right hilum prominence again noted.) Critical Care Time 45 minutes excluding central line placement Impression Severe bradycardia with hypotension likely related to his severe hyperkalemia and acute renal failure Severe hyperkalemia with EKG changes, along with profound metabolic acidosis Acute renal failure, Severe bradycardia related to above with contribution from beta darius and amiodarone Sepsis associated with urinary tract infection and/or pyelonephritis would recommend to do an ultrasound of the kidneys and urine culture and blood culture Chronic atrial fibrillation Plan includes gentle rehydration bicarb along with hemodialysis as already been planned, we'll initiate patient on IV Rocephin and repeat labs and x-ray tomorrow patient will need a central line in case levo fed as needed
--- NOTE | 2017-01-17 00:08 | P.PCN ---
Date of Procedure: 01/16/17 Preoperative Diagnosis: Severe sepsis, urinary tract infection, severe hyperkalemia, acute renal failure , severe bradycardia and hypertension Postoperative Diagnosis: As above Procedure(s) Performed: Right internal jugular triple-lumen catheter placement/central line via anterior approach utilizing ultrasound Implants: Anesthesia: local Surgeon: Elmo Voss Estimated Blood Loss (ml): 5 Condition: critical Disposition: ICU Indications for Procedure: As above Operative Findings: As below Description of Procedure: Patient prepared and draped in usual fashion informed consent was obtained procedure was challenging given the size of the patient's body habitus and constant movement and restlessness, ultrasound utilized both anterior port posterior approach however vein was more accessible anteriorly, using a modified Seldinger technique a triple lumen catheter inserted into the right internal jugular vein via anterior approach patient tolerated procedure well no complication noted, chest x-ray pending
--- NOTE | 2017-01-17 01:09 | XR ---
Exam: XR CXR 1 VIEW History: Post line insertion. Comparison: 01/16/17 at 15:49. Technique: Single view. Findings: Mild prominence of pulmonary vasculature. Enlarged heart shadow. Findings suggest volume overload/congestion. Cannot rule out small superimposed left retrocardiac consolidation. The distal tip of the right IJ line projects at the expected location of the cavoatrial junction. Questionable widening of the mediastinum, may be due to positioning and is not appreciably changed. Impression: Distal tip of right IJ line projects at expected location of cavoatrial junction. Question vascular congestion/volume overload.
[2017-01-17] MEDS: SODIUM CHLORIDE 0.9% 1,000 ML IV SCH (04:02)
[2017-01-17 04:11] LABS: Anisocytosis Slight; Basophils % (A) 0 %; CH 29.8; CHCM 33.7; Eosinophils # (A) 0.1 k/uL (0-0.7); Eosinophils % (A) 0 %; HDW 2.83; Luc # (Auto) 0.27; Luc % (Auto) 1; Lymphocytes # (A) 1.1 k/uL (1.0-4.8); Lymphocytes % (A) 6 %; MCH 28.7 pg (25.0-35.0); MCHC 32.3 g/dL (31.0-37.0); MCV 88.7 fL (80.0-100.0); Mean Platelet Volume 9.3; Monocytes # (A) 0.9 k/uL (0-1.0); Monocytes % (A) 5 %; Neutrophils % (A) 88 %; RDW 17.2 % (11.5-15.5); WBC 19.4 k/uL (3.8-10.6); WBC (Perox) 20.11
[2017-01-17 04:24] LABS: INR 1.3 (<1.2); Prothrombin Time 12.6 sec (9.0-12.0)
[2017-01-17 04:27] LABS: Magnesium 2.1 mg/dL (1.6-2.3); Phosphorous 6.4 mg/dL (2.5-4.5); Potassium 4.9 mmol/L (3.5-5.1); Total Bilirubin 0.4 mg/dL (0.2-1.3); Total Protein 6.1 g/dL (6.3-8.2)
--- NOTE | 2017-01-17 07:01 | XR ---
EXAMINATION TYPE: XR chest 1V DATE OF EXAM: 01/17/2017 HISTORY: ICU follow up. REFERENCE: Previous study of earlier today. FINDINGS: There is a right internal jugular catheter in place. Its tip is at the cavoatrial junction. The heart is enlarged. There is mild vascular redistribution. There are subtle interstitial change. IMPRESSION: FINDINGS MOST CONSISTENT WITH MILD CONGESTIVE HEART FAILURE.
[2017-01-17 07:21] LABS: Glucose,Whole Blood 100 mg/dL (75-99)
--- NOTE | 2017-01-17 07:56 | P.GSCN ---
History of Present Illness History of present illness: 76-year-old white female, patient came with history of drowsiness history is not obtainable patient had a electrolyte which showed patient has a high potassium nephrology was consulted and I was called in for placement of urgent dialysis catheter patient also has heart rate of bradycardia currently has been consulted Patient seen in emergency room patient is very restless and confused consent was obtained for placement of urgent dialysis catheter of Neck is supple no bruit appreciated Chest clear breath sounds are normal Abdomen protuberant no mass palpable Vascular examination femorals are not palpable bilateral Plan is placement of the dialysis catheter risk and complication discussed 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", gout History of Any Multi-Drug Resistant Organisms: None Reported Past Surgical History: Heart Catheterization, Hysterectomy, Joint Replacement, Orthopedic Surgery Additional Past Surgical History / Comment(s): rt knee replacement, heel spur left foot, sanjana cataracts,cystoscopy Past Anesthesia/Blood Transfusion Reactions: No Reported Reaction Smoking Status: Former smoker - Past Family History Mother Family Medical History: Unable to Obtain Father Family Medical History: Unable to Obtain Medications and Allergies Home Medications Medication Instructions Recorded Confirmed Type Albuterol Inhaler [Ventolin Hfa 2 puff INHALATION RT-Q4H PRN 04/29/16 01/16/17 History Inhaler] Aspirin EC [Ecotrin Low Dose] 81 mg PO DAILY 04/29/16 01/16/17 History Omeprazole 20 mg PO DAILY 04/29/16 01/16/17 History Furosemide [Lasix] 40 mg PO DAILY 07/24/16 01/16/17 History Insulin Lispro [humaLOG Kwikpen] See Protocol SQ AC-TID PRN 07/24/16 01/16/17 History Meclizine [Antivert] 25 mg PO TID 07/24/16 01/16/17 History Nebivolol HCl [Bystolic] 20 mg PO DAILY 07/24/16 01/16/17 History Albuterol Nebulized [Ventolin 2.5 mg INHALATION RT-Q4H PRN 01/16/17 01/16/17 History Nebulized] Allopurinol [Zyloprim] 300 mg PO DAILY 01/16/17 01/16/17 History Amiodarone [Cordarone] 200 mg PO BID 01/16/17 01/16/17 History Atorvastatin [Lipitor] 40 mg PO DAILY 01/16/17 01/16/17 History Isosorbide Mononitrate ER [Imdur] 30 mg PO DAILY 01/16/17 01/16/17 History Levothyroxine Sodium [Synthroid] 75 mcg PO DAILY 01/16/17 01/16/17 History Lisinopril 30 mg PO DAILY 01/16/17 01/16/17 History Loratadine [Claritin] 10 mg PO DAILY 01/16/17 01/16/17 History Potassium Chloride [Klor-Con 20] 20 meq PO DAILY 01/16/17 01/16/17 History Rivaroxaban [Xarelto] 15 mg PO DAILY 01/16/17 01/16/17 History Spironolactone [Aldactone] 50 mg PO DAILY 01/16/17 01/16/17 History Allergies Allergy/AdvReac Type Severity Reaction Status Date / Time iron Allergy Rash/Hives Verified 07/29/16 09:23 Sulfa (Sulfonamide Allergy Rash/Hives Verified 07/29/16 09:23 Antibiotics) Tetanus Vaccines and Toxoid Allergy Swelling Verified 07/29/16 09:23 Surgical - Exam Vital Signs Temp Pulse Resp BP 96.5 F L 30 L 18 68/42 01/16/17 15:35 01/16/17 15:35 01/16/17 15:35 01/16/17 15:35 Results - Labs 01/17/17 04:00 01/17/17 04:00 Abnormal Lab Results - Last 24 Hours (Table) 01/16/17 01/16/17 01/16/17 Range/Units 15:29 15:45 15:45 WBC 20.9 H (3.8-10.6) k/uL RBC (3.80-5.40) m/uL Hgb (11.4-16.0) gm/dL Hct (34.0-46.0) % RDW 16.7 H (11.5-15.5) % Neutrophils # 19.0 H (1.3-7.7) k/uL PT (9.0-12.0) sec INR (<1.2) APTT (22.0-30.0) sec Sodium (137-145) mmol/L Potassium (3.5-5.1) mmol/L Carbon Dioxide (22-30) mmol/L BUN (7-17) mg/dL Creatinine (0.52-1.04) mg/dL Glucose (74-99) mg/dL POC Glucose (mg/dL) 119 H (75-99) mg/dL Phosphorus (2.5-4.5) mg/dL Magnesium (1.6-2.3) mg/dL Total Creatine Kinase 193 H (30-135) U/L Total Protein (6.3-8.2) g/dL TSH (0.465-4.680) mIU/L Free T3 pg/mL (2.8-5.3) pg/ml Urine Appearance (Clear) Urine Protein (Negative) Urine Blood (Negative) Ur Leukocyte Esterase (Negative) Urine RBC (0-5) /hpf Urine WBC (0-5) /hpf Urine WBC Clumps (None) /hpf Urine Bacteria (None) /hpf Urine Yeast (Budding) (None) /hpf 01/16/17 01/16/17 01/16/17 Range/Units 15:45 15:45 15:45 WBC (3.8-10.6) k/uL RBC (3.80-5.40) m/uL Hgb (11.4-16.0) gm/dL Hct (34.0-46.0) % RDW (11.5-15.5) % Neutrophils # (1.3-7.7) k/uL PT 12.8 H (9.0-12.0) sec INR 1.3 H (<1.2) APTT 32.1 H (22.0-30.0) sec Sodium 133 L (137-145) mmol/L Potassium 7.8 H* (3.5-5.1) mmol/L Carbon Dioxide 9 L* (22-30) mmol/L BUN 191 H* (7-17) mg/dL Creatinine 8.80 H* (0.52-1.04) mg/dL Glucose 126 H (74-99) mg/dL POC Glucose (mg/dL) (75-99) mg/dL Phosphorus (2.5-4.5) mg/dL Magnesium 2.7 H (1.6-2.3) mg/dL Total Creatine Kinase (30-135) U/L Total Protein (6.3-8.2) g/dL TSH 8.090 H (0.465-4.680) mIU/L Free T3 pg/mL 2.3 L (2.8-5.3) pg/ml Urine Appearance (Clear) Urine Protein (Negative) Urine Blood (Negative) Ur Leukocyte Esterase (Negative) Urine RBC (0-5) /hpf Urine WBC (0-5) /hpf Urine WBC Clumps (None) /hpf Urine Bacteria (None) /hpf Urine Yeast (Budding) (None) /hpf 01/16/17 01/16/17 01/17/17 Range/Units 18:50 19:00 04:00 WBC 19.4 H (3.8-10.6) k/uL RBC 3.50 L (3.80-5.40) m/uL Hgb 10.0 L D (11.4-16.0) gm/dL Hct 31.0 L (34.0-46.0) % RDW 17.2 H (11.5-15.5) % Neutrophils # 17.0 H (1.3-7.7) k/uL PT (9.0-12.0) sec INR (<1.2) APTT (22.0-30.0) sec Sodium (137-145) mmol/L Potassium (3.5-5.1) mmol/L Carbon Dioxide (22-30) mmol/L BUN (7-17) mg/dL Creatinine (0.52-1.04) mg/dL Glucose (74-99) mg/dL POC Glucose (mg/dL) 159 H (75-99) mg/dL Phosphorus (2.5-4.5) mg/dL Magnesium (1.6-2.3) mg/dL Total Creatine Kinase (30-135) U/L Total Protein (6.3-8.2) g/dL TSH (0.465-4.680) mIU/L Free T3 pg/mL (2.8-5.3) pg/ml Urine Appearance Turbid H (Clear) Urine Protein 2+ H (Negative) Urine Blood Moderate H (Negative) Ur Leukocyte Esterase Large H (Negative) Urine RBC 20 H (0-5) /hpf Urine WBC >182 H (0-5) /hpf Urine WBC Clumps Many H (None) /hpf Urine Bacteria Many H (None) /hpf Urine Yeast (Budding) Many H (None) /hpf 01/17/17 01/17/17 01/17/17 Range/Units 04:00 04:00 07:19 WBC (3.8-10.6) k/uL RBC (3.80-5.40) m/uL Hgb (11.4-16.0) gm/dL Hct (34.0-46.0) % RDW (11.5-15.5) % Neutrophils # (1.3-7.7) k/uL PT 12.6 H (9.0-12.0) sec INR 1.3 H (<1.2) APTT (22.0-30.0) sec Sodium 136 L (137-145) mmol/L Potassium (3.5-5.1) mmol/L Carbon Dioxide 20 L (22-30) mmol/L BUN 106 H* (7-17) mg/dL Creatinine 4.90 H (0.52-1.04) mg/dL Glucose (74-99) mg/dL POC Glucose (mg/dL) 100 H (75-99) mg/dL Phosphorus 6.4 H (2.5-4.5) mg/dL Magnesium (1.6-2.3) mg/dL Total Creatine Kinase (30-135) U/L Total Protein 6.1 L (6.3-8.2) g/dL TSH (0.465-4.680) mIU/L Free T3 pg/mL (2.8-5.3) pg/ml Urine Appearance (Clear) Urine Protein (Negative) Urine Blood (Negative) Ur Leukocyte Esterase (Negative) Urine RBC (0-5) /hpf Urine WBC (0-5) /hpf Urine WBC Clumps (None) /hpf Urine Bacteria (None) /hpf Urine Yeast (Budding) (None) /hpf Microbiology - Last 24 Hours (Table) 01/16/17 19:00 Urine Culture - Preliminary Urine,Catheterized Diabetes panel 01/16/17 01/17/17 Range/Units 15:45 04:00 Sodium 133 L 136 L (137-145) mmol/L Potassium 7.8 H* 4.9 (3.5-5.1) mmol/L Chloride 104 103 (98-107) mmol/L Carbon Dioxide 9 L* 20 L (22-30) mmol/L BUN 191 H* 106 H* (7-17) mg/dL Creatinine 8.80 H* 4.90 H (0.52-1.04) mg/dL Glucose 126 H 94 (74-99) mg/dL Calcium 9.6 9.0 (8.4-10.2) mg/dL AST 17 20 (14-36) U/L ALT 45 43 (9-52) U/L Alkaline Phosphatase 106 105 (38-126) U/L Total Protein 7.0 6.1 L (6.3-8.2) g/dL Albumin 4.2 3.6 (3.5-5.0) g/dL Thyroid panel 01/16/17 Range/Units 15:45 TSH 8.090 H (0.465-4.680) mIU/L Calcium panel 01/16/17 01/17/17 Range/Units 15:45 04:00 Calcium 9.6 9.0 (8.4-10.2) mg/dL Phosphorus 6.4 H (2.5-4.5) mg/dL Albumin 4.2 3.6 (3.5-5.0) g/dL Pituitary panel 01/16/17 01/17/17 Range/Units 15:45 04:00 Sodium 133 L 136 L (137-145) mmol/L Potassium 7.8 H* 4.9 (3.5-5.1) mmol/L Chloride 104 103 (98-107) mmol/L Carbon Dioxide 9 L* 20 L (22-30) mmol/L BUN 191 H* 106 H* (7-17) mg/dL Creatinine 8.80 H* 4.90 H (0.52-1.04) mg/dL Glucose 126 H 94 (74-99) mg/dL Calcium 9.6 9.0 (8.4-10.2) mg/dL TSH 8.090 H (0.465-4.680) mIU/L Adrenal panel 01/16/17 01/17/17 Range/Units 15:45 04:00 Sodium 133 L 136 L (137-145) mmol/L Potassium 7.8 H* 4.9 (3.5-5.1) mmol/L Chloride 104 103 (98-107) mmol/L Carbon Dioxide 9 L* 20 L (22-30) mmol/L BUN 191 H* 106 H* (7-17) mg/dL Creatinine 8.80 H* 4.90 H (0.52-1.04) mg/dL Glucose 126 H 94 (74-99) mg/dL Calcium 9.6 9.0 (8.4-10.2) mg/dL Total Bilirubin 0.2 0.4 (0.2-1.3) mg/dL AST 17 20 (14-36) U/L ALT 45 43 (9-52) U/L Alkaline Phosphatase 106 105 (38-126) U/L Total Protein 7.0 6.1 L (6.3-8.2) g/dL Albumin 4.2 3.6 (3.5-5.0) g/dL
--- NOTE | 2017-01-17 07:58 | P.PCN ---
Preoperative Diagnosis: Postoperative Diagnosis: Procedure(s) Performed: Implants: Indications for Procedure: Operative Findings: Description of Procedure: Diagnoses is renal failure with high potassium Ultrasound-guided 20 cm dialysis catheter placed left femoral approach Left groin was prepped and draped applied percent lidocaine for infected in the left groin area. Then ultrasound-guided micropuncture introduced to the left femoral vein and micropuncture guidewire was passed then we advanced a 4-Danish sheath of the top of the guidewire passed a regular guidewire and dilator advanced on the top of the guidewire after that we placed 20 same dialysis catheter guidewire was removed extremity was flushed with heparin saline and Hep -Lock secured with 3-0 Vicryl dressing applied patient tolerated the procedure well
--- NOTE | 2017-01-17 08:44 | US ---
EXAMINATION TYPE: US kidneys/renal and bladder DATE OF EXAM: 01/17/2017 COMPARISON: NONE CLINICAL HISTORY: ARF. emergency dialysis yesterday, poor historian. EXAM MEASUREMENTS: Right Kidney: 10.5 x 6.0 x 5.3 cm Left Kidney: 11.1 x 4.5 x 5.0 cm Right Kidney: medial anechoic lesion at hilum - 3.8 x 2.4 cm Left Kidney: Cystic appearing lesions seen. 1- upper pole = 4.8 x 3.9 x 4.1 cm 2- lower pole= 3.0 x 3.2 x 3.2 cm Bladder: Not seen due to catheter The anechoic area in the right renal hilus likely represents an extrarenal pelvis. Neither of the les ions involving the left kidney meet the criteria for simple cysts. IMPRESSION: 1. PROBABLE EXTRARENAL PELVIS ON THE RIGHT. 2. CYSTIC CHANGE IN THE LEFT KIDNEY DOES NOT MEET THE REQUIREMENTS OF SIMPLE CYSTS. FURTHER INVESTIGA TION WITH CT OR MR WOULD BE SUGGESTED.
--- NOTE | 2017-01-17 08:45 | P.NPCON ---
History of Present Illness - Reason for Consult Consult date: 01/17/17 acute renal failure, hyperkalemia - Chief Complaint Drowsiness, acute kidney injury and hyperkalemia - History of Present Illness This is a 76-year-old female seen in consultation because of acute kidney injury , hyperkalemia and drowsiness. She presented with a slow deterioration over the last few weeks to months as far as her mental status concerned. Her blood pressure was low in the 90s and her heart rate is in the 30s on presentation in the emergency room I tried to call the son but no response so I have left a message for the son to call me back. Last night because of potassium 7.8 and drowsiness she was dialyzed with a Chapin catheter in the left groin and had dialysis for 3 hours with no fluid taken off. Potassium has improved from 7.8- 4.9 this morning. She made 1725 mL over last night and over the last 15-20 minutes there are more than 150 mL of urine currently in the Hayes catheter. She remains somewhat drowsy arousable follows commands but has poor memory. She moves all her extremities. No history of for could be obtained from her. I called her son and left a message Her creatinine was normal on 11/14/2016 at 0.9. Her urinalysis shows 2+ proteinuria moderate blood WBCs greater than 182 and rbc's 20. This bacteria yeast. Her history significant for diabetes, supposedly atrial fibrillation, she had proteinuria in the past at 2+, COPD, hypertension and hyperlipidemia rheumatoid arthritis and some history of bleeding in the kidney. She has had right knee replacement and hysterectomy. Her medications included Aldactone at home, Xarelto, Lasix, lisinopril potassium chloride 20 mEq. No suggestion of any gross hematuria. No history of any stroke or other suggestion off atrial fibrillation induce embolizations. 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", gout History of Any Multi-Drug Resistant Organisms: None Reported Past Surgical History: Heart Catheterization, Hysterectomy, Joint Replacement, Orthopedic Surgery Additional Past Surgical History / Comment(s): rt knee replacement, heel spur left foot, sanjana cataracts,cystoscopy Past Anesthesia/Blood Transfusion Reactions: No Reported Reaction Smoking Status: Former smoker - Past Family History Mother Family Medical History: Unable to Obtain Father Family Medical History: Unable to Obtain Medications and Allergies Home Medications Medication Instructions Recorded Confirmed Type Albuterol Inhaler [Ventolin Hfa 2 puff INHALATION RT-Q4H PRN 04/29/16 01/16/17 History Inhaler] Aspirin EC [Ecotrin Low Dose] 81 mg PO DAILY 04/29/16 01/16/17 History Omeprazole 20 mg PO DAILY 04/29/16 01/16/17 History Furosemide [Lasix] 40 mg PO DAILY 07/24/16 01/16/17 History Insulin Lispro [humaLOG Kwikpen] See Protocol SQ AC-TID PRN 07/24/16 01/16/17 History Meclizine [Antivert] 25 mg PO TID 07/24/16 01/16/17 History Nebivolol HCl [Bystolic] 20 mg PO DAILY 07/24/16 01/16/17 History Albuterol Nebulized [Ventolin 2.5 mg INHALATION RT-Q4H PRN 01/16/17 01/16/17 History Nebulized] Allopurinol [Zyloprim] 300 mg PO DAILY 01/16/17 01/16/17 History Amiodarone [Cordarone] 200 mg PO BID 01/16/17 01/16/17 History Atorvastatin [Lipitor] 40 mg PO DAILY 01/16/17 01/16/17 History Isosorbide Mononitrate ER [Imdur] 30 mg PO DAILY 01/16/17 01/16/17 History Levothyroxine Sodium [Synthroid] 75 mcg PO DAILY 01/16/17 01/16/17 History Lisinopril 30 mg PO DAILY 01/16/17 01/16/17 History Loratadine [Claritin] 10 mg PO DAILY 01/16/17 01/16/17 History Potassium Chloride [Klor-Con 20] 20 meq PO DAILY 01/16/17 01/16/17 History Rivaroxaban [Xarelto] 15 mg PO DAILY 01/16/17 01/16/17 History Spironolactone [Aldactone] 50 mg PO DAILY 01/16/17 01/16/17 History Allergies Allergy/AdvReac Type Severity Reaction Status Date / Time iron Allergy Rash/Hives Verified 07/29/16 09:23 Sulfa (Sulfonamide Allergy Rash/Hives Verified 07/29/16 09:23 Antibiotics) Tetanus Vaccines and Toxoid Allergy Swelling Verified 07/29/16 09:23 Physical Exam Vitals: Vital Signs Temp Pulse Resp BP Pulse Ox 01/17/17 07:00 67 18 114/52 94 L 01/17/17 06:30 67 28 H 97/43 97 01/17/17 06:00 66 18 89/48 94 L 01/17/17 05:30 69 15 101/49 93 L 01/17/17 05:00 71 15 101/43 96 01/17/17 04:30 72 19 101/45 96 01/17/17 04:00 98.1 F 70 15 104/51 93 L 01/17/17 03:30 69 20 112/63 87 L 01/17/17 03:00 68 23 102/49 93 L 01/17/17 02:30 69 17 114/59 94 L 01/17/17 02:00 69 19 102/77 94 L 01/17/17 01:30 69 26 H 122/66 96 01/17/17 01:00 68 19 113/57 97 01/17/17 00:30 66 13 100/66 99 01/17/17 00:00 97.7 F 69 15 129/77 97 01/16/17 23:30 68 17 138/86 97 01/16/17 23:00 68 17 116/66 96 01/16/17 22:55 68 18 116/66 95 01/16/17 22:30 68 18 91/74 91 L 01/16/17 22:00 97.4 F L 68 12 119/79 94 L 01/16/17 21:30 65 23 109/80 95 01/16/17 21:00 63 19 94/35 92 L 01/16/17 20:30 62 20 113/54 87 L 01/16/17 20:00 50 L 26 H 92/42 87 L 01/16/17 19:30 45 L 28 H 69/47 84 L 01/16/17 19:00 44 L 21 143/120 01/16/17 18:47 61 28 H 01/16/17 17:35 38 L 18 101/51 01/16/17 17:04 52 L 18 100/52 01/16/17 16:55 45 L 01/16/17 16:54 38 L 18 104/52 01/16/17 16:43 39 L 18 117/56 01/16/17 16:35 37 L 18 104/54 01/16/17 16:28 38 L 18 108/50 01/16/17 16:26 32 L 18 89/53 01/16/17 16:21 30 L 18 95/53 01/16/17 15:58 29 L 18 01/16/17 15:55 38 L 18 106/49 01/16/17 15:52 40 L 18 98/52 01/16/17 15:35 96.5 F L 30 L 18 68/42 Intake and Output 01/16/17 01/17/17 01/17/17 22:59 06:59 14:59 Intake Total 400 800 319.492 Output Total 175 1725 200 Balance 225 -925 119.492 Intake: IV 400 800 100 Calcium Gluconate 1,000 100 mg In Sodium Chloride 0.9 % 100 ml @ 100 mls/hr IVPB ONCE ONE Rx#: [id number] Sodium Chloride 0.9% 1, 300 800 100 000 ml @ 100 mls/hr IV . Q10H [facility] Rx#:[id number] Intake, IV Titration 219.492 Amount DOPamine DRIP 800 mg In 219.492 Dextrose/Water 1 500ml. bag @ 5 MCG/KG/MIN 24.57 mls/hr IV .[id number] [facility] Rx #:[id number] Output: Urine 175 1725 200 Other: Voiding Method Indwelling Catheter Indwelling Catheter # Bowel Movements 0 0 Weight 131.088 kg 127.6 kg On examination currently she is remains drowsy but arousable follows commands but is unable to give me any history. She is disoriented to time but is aware that she is in some hospital. HEENT exam no JVP neck is supple no facial asymmetry no carotid bruit. Pupils are equal. Lungs are clear to auscultation and percussion but air entry is less than optimal. Heart sounds are unremarkable. No murmur rub gallop. On the monitor she is showing normal sinus rhythm. Blood pressures still is somewhat low in the 90s. Abdomen is soft nontender obese. No masses felt. Extremity exam was chronic lymphedema. I could not feel the dorsalis pedis. Feet are warm there is no evidence of any embolization or petechiae. Neurologically arousable follows commands and can count fingers and has no obvious focal motor deficit. Her memory is poor and her orientation is poor. No asterixis is noted. Results - Lab Results Most recent lab results Calcium 9.0 mg/dL (8.4-10.2) 01/17/17 04:00 Phosphorus 6.4 mg/dL (2.5-4.5) H 01/17/17 04:00 Magnesium 2.1 mg/dL (1.6-2.3) 01/17/17 04:00 01/17/17 04:00 01/17/17 04:00 Assessment and Plan Plan: Impression. 1. Acute kidney injury secondary to slightly low blood pressure in the 90s, additionally bradycardia with heart rate in the 30s,. Previous creatinine on 2 months ago was 0.9. Urinalysis shows WBCs too numerous to count and 20 rbc's and moderate blood. Currently her urine output is picked up after overnight dialysis. The possibility of any embolization is unlikely, anti- coagulation induce nephropathy is unlikely, as her urine is clear and urine output is picked up substantially. Unlikely obstructive element. Initial urine output was minimal but with dopamine it has picked up. Bradycardia is resolved. 2. Severe hyperkalemia secondary to acute kidney injury,' secondary to Aldactone, and 2 lisinopril. Resolved. 3. Severe gap and non-gap acidosis, with a bicarb of 9, delta bicarb is 15 and the delta gap is 8. Etiology is acute kidney injury. Anion gap now is 13 and bicarb is 20 4. Possible urinary tract infection. 5. Obtundation causes not very clear unlikely to be uremia possible early dementia. Will need further workup. 6. Mild early diabetic nephropathy with proteinuria 2+ but normal creatinine. 7. Chronic lymphedema. 8. Obesity. 9. Obstructive sleep apnea possibly, COPD. Recommendation. No further dialysis. We'll watch labs closely and urine output closely. I'll defer to cardiology regarding the dopamine. Cover with antibiotics for possible UTI. Would workup for her obtundation with computed tomography scan and other additional workup as necessary.
--- NOTE | 2017-01-17 08:57 | P.PN ---
Subjective Principal diagnosis: Bradycardia This is a pleasant 76-year-old female patient who was brought to the emergency room with change in mental status. She was found to be severely bradycardic with heart rate in the 30s. The EKG showed junctional rhythm with peaked T waves. The patient was found to be severely hyperkalemic and she was in acute renal failure. An emergent dialysis was performed. On follow-up with the patient today she continues to be slightly lethargic. The heart rate has recovered very nicely. The potassium is back to normal. The creatinine is trending down. I'm going to obtain an echocardiogram in view of systolic murmur on examination. We'll continue monitor the heart rate and blood pressure and continue monitor the rhythm. Objective - Vital Signs Vital signs: Vital Signs Temp 98.1 F 01/17/17 04:00 Pulse 67 01/17/17 07:00 Resp 18 01/17/17 07:00 BP 114/52 01/17/17 07:00 Pulse Ox 94 L 01/17/17 07:00 Intake & Output 01/16/17 01/17/17 01/17/17 18:59 06:59 18:59 Intake Total 1200 319.492 Output Total 1900 200 Balance -700 119.492 Weight 131.088 kg 127.6 kg Intake: IV 1200 100 Calcium Gluconate 1,000 100 mg In Sodium Chloride 0.9 % 100 ml @ 100 mls/hr IVPB ONCE ONE Rx#: [id number] Sodium Chloride 0.9% 1, 1100 100 000 ml @ 100 mls/hr IV . Q10H [facility] Rx#:[id number] Intake, IV Titration 219.492 Amount DOPamine DRIP 800 mg In 219.492 Dextrose/Water 1 500ml. bag @ 5 MCG/KG/MIN 24.57 mls/hr IV .[id number] [facility] Rx #:[id number] Output: Urine 1900 200 Other: Voiding Method Indwelling Catheter # Bowel Movements 0 - Constitutional General appearance: Present: no acute distress - Respiratory Respiratory: bilateral: diminished - Cardiovascular Rhythm: regular Heart sounds: normal: S1, S2 Abnormal Heart Sounds: Present: systolic murmur - Labs CBC & Chem 7: 01/17/17 04:00 01/17/17 04:00 Labs: Abnormal Lab Results - Last 24 Hours (Table) 01/16/17 01/16/1717 Range/Units 15:29 15:45 15:45 WBC 20.9 H (3.8-10.6) k/uL RBC (3.80-5.40) m/uL Hgb (11.4-16.0) gm/dL Hct (34.0-46.0) % RDW 16.7 H (11.5-15.5) % Neutrophils # 19.0 H (1.3-7.7) k/uL PT (9.0-12.0) sec INR (<1.2) APTT (22.0-30.0) sec Sodium (137-145) mmol/L Potassium (3.5-5.1) mmol/L Carbon Dioxide (22-30) mmol/L BUN (7-17) mg/dL Creatinine (0.52-1.04) mg/dL Glucose (74-99) mg/dL POC Glucose (mg/dL) 119 H (75-99) mg/dL Phosphorus (2.5-4.5) mg/dL Magnesium (1.6-2.3) mg/dL Total Creatine Kinase 193 H (30-135) U/L Total Protein (6.3-8.2) g/dL TSH (0.465-4.680) mIU/L Free T3 pg/mL (2.8-5.3) pg/ml Urine Appearance (Clear) Urine Protein (Negative) Urine Blood (Negative) Ur Leukocyte Esterase (Negative) Urine RBC (0-5) /hpf Urine WBC (0-5) /hpf Urine WBC Clumps (None) /hpf Urine Bacteria (None) /hpf Urine Yeast (Budding) (None) /hpf 01/16/17 01/16/17 01/16/17 Range/Units 15:45 15:45 15:45 WBC (3.8-10.6) k/uL RBC (3.80-5.40) m/uL Hgb (11.4-16.0) gm/dL Hct (34.0-46.0) % RDW (11.5-15.5) % Neutrophils # (1.3-7.7) k/uL PT 12.8 H (9.0-12.0) sec INR 1.3 H (<1.2) APTT 32.1 H (22.0-30.0) sec Sodium 133 L (137-145) mmol/L Potassium 7.8 H* (3.5-5.1) mmol/L Carbon Dioxide 9 L* (22-30) mmol/L BUN 191 H* (7-17) mg/dL Creatinine 8.80 H* (0.52-1.04) mg/dL Glucose 126 H (74-99) mg/dL POC Glucose (mg/dL) (75-99) mg/dL Phosphorus (2.5-4.5) mg/dL Magnesium 2.7 H (1.6-2.3) mg/dL Total Creatine Kinase (30-135) U/L Total Protein (6.3-8.2) g/dL TSH 8.090 H (0.465-4.680) mIU/L Free T3 pg/mL 2.3 L (2.8-5.3) pg/ml Urine Appearance (Clear) Urine Protein (Negative) Urine Blood (Negative) Ur Leukocyte Esterase (Negative) Urine RBC (0-5) /hpf Urine WBC (0-5) /hpf Urine WBC Clumps (None) /hpf Urine Bacteria (None) /hpf Urine Yeast (Budding) (None) /hpf 01/16/17 01/16/17 01/17/17 Range/Units 18:50 19:00 04:00 WBC 19.4 H (3.8-10.6) k/uL RBC 3.50 L (3.80-5.40) m/uL Hgb 10.0 L D (11.4-16.0) gm/dL Hct 31.0 L (34.0-46.0) % RDW 17.2 H (11.5-15.5) % Neutrophils # 17.0 H (1.3-7.7) k/uL PT (9.0-12.0) sec INR (<1.2) APTT (22.0-30.0) sec Sodium (137-145) mmol/L Potassium (3.5-5.1) mmol/L Carbon Dioxide (22-30) mmol/L BUN (7-17) mg/dL Creatinine (0.52-1.04) mg/dL Glucose (74-99) mg/dL POC Glucose (mg/dL) 159 H (75-99) mg/dL Phosphorus (2.5-4.5) mg/dL Magnesium (1.6-2.3) mg/dL Total Creatine Kinase (30-135) U/L Total Protein (6.3-8.2) g/dL TSH (0.465-4.680) mIU/L Free T3 pg/mL (2.8-5.3) pg/ml Urine Appearance Turbid H (Clear) Urine Protein 2+ H (Negative) Urine Blood Moderate H (Negative) Ur Leukocyte Esterase Large H (Negative) Urine RBC 20 H (0-5) /hpf Urine WBC >182 H (0-5) /hpf Urine WBC Clumps Many H (None) /hpf Urine Bacteria Many H (None) /hpf Urine Yeast (Budding) Many H (None) /hpf 01/17/17 01/17/17 01/17/17 Range/Units 04:00 04:00 07:19 WBC (3.8-10.6) k/uL RBC (3.80-5.40) m/uL Hgb (11.4-16.0) gm/dL Hct (34.0-46.0) % RDW (11.5-15.5) % Neutrophils # (1.3-7.7) k/uL PT 12.6 H (9.0-12.0) sec INR 1.3 H (<1.2) APTT (22.0-30.0) sec Sodium 136 L (137-145) mmol/L Potassium (3.5-5.1) mmol/L Carbon Dioxide 20 L (22-30) mmol/L BUN 106 H* (7-17) mg/dL Creatinine 4.90 H (0.52-1.04) mg/dL Glucose (74-99) mg/dL POC Glucose (mg/dL) 100 H (75-99) mg/dL Phosphorus 6.4 H (2.5-4.5) mg/dL Magnesium (1.6-2.3) mg/dL Total Creatine Kinase (30-135) U/L Total Protein 6.1 L (6.3-8.2) g/dL TSH (0.465-4.680) mIU/L Free T3 pg/mL (2.8-5.3) pg/ml Urine Appearance (Clear) Urine Protein (Negative) Urine Blood (Negative) Ur Leukocyte Esterase (Negative) Urine RBC (0-5) /hpf Urine WBC (0-5) /hpf Urine WBC Clumps (None) /hpf Urine Bacteria (None) /hpf Urine Yeast (Budding) (None) /hpf Microbiology - Last 24 Hours (Table) 01/16/17 19:00 Urine Culture - Preliminary Urine,Catheterized Assessment and Plan Plan: Assessment Acute renal failure Hyperkalemia Cardiac arrhythmia Change in mental status Plan Continue monitor the heart rate and rhythm Echocardiogram with Doppler Follow-up with the patient
[2017-01-17] MEDS: PANTOPRAZOLE 40 MG/10 ML VIAL IV SCH (09:19)
--- NOTE | 2017-01-17 11:21 | CT ---
EXAMINATION TYPE: CT brain wo con DATE OF EXAM: 01/17/2017 COMPARISON: NONE HISTORY: Pt not responding earlier today CT DLP: 1853.2 mGycm Automated exposure control for dose reduction was used. FINDINGS: There are generalized changes of sulcal prominence and ventriculomegaly, compatible with atrophic erum nge. There is diffuse periventricular white matter lucency, compatible with chronic white matter isch emic change. There is vascular calcification. There is no acute focal lesion, mass effect or midline shift identified. I do not see evidence of intracranial blood. Visualized portions of the paranasal sinuses and mastoids are clear. IMPRESSION: 1. NO ACUTE INTRACRANIAL ABNORMALITY. 2. ATROPHIC CHANGE. 3. CHRONIC WHITE MATTER ISCHEMIC CHANGE.
[2017-01-17 12:03] LABS: Glucose,Whole Blood 103 mg/dL (75-99)
--- NOTE | 2017-01-17 12:12 | P.HPIM ---
History of Present Illness H&P Date: 01/17/17 Chief Complaint: Altered mental status This is a 76-year-old female with past medical history noted below who presented to the emergency room with altered mental status. Patient is a very poor historian. She is alert and awake. She is oriented only to herself. She is not able to provide any significant medical history. Most of the medical history was obtained by chart review and nursing staff report. Apparently patient was brought into the emergency room with worsening confusion and altered mental status and was found to be in acute kidney failure with significant hyperkalemia of 7.8. She was also noted to be significantly bradycardic with heart rate in the 30s. Patient was seen and evaluated by cardiology and nephrology. She underwent emergent dialysis. Her lab work is improved this morning. Potassium is 4.9. Exact etiology of her acute kidney failure is unclear. She is known to have normal kidney failure as of November 2016. Patient herself is not sure about any of her medication at home. She said that she manage her own medicine by really doubt her ability to do so. No family at bedside. She remained hemodynamically stable. Review of Systems Review of system: 14 points review of systems were obtained and were negative except to what were mentioned in the HPI. 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", gout History of Any Multi-Drug Resistant Organisms: None Reported Past Surgical History: Heart Catheterization, Hysterectomy, Joint Replacement, Orthopedic Surgery Additional Past Surgical History / Comment(s): rt knee replacement, heel spur left foot, sanjana cataracts,cystoscopy Past Anesthesia/Blood Transfusion Reactions: No Reported Reaction Smoking Status: Former smoker - Past Family History Mother Family Medical History: Unable to Obtain Father Family Medical History: Unable to Obtain Medications and Allergies Home Medications Medication Instructions Recorded Confirmed Type Albuterol Inhaler [Ventolin Hfa 2 puff INHALATION RT-Q4H PRN 04/29/16 01/16/17 History Inhaler] Aspirin EC [Ecotrin Low Dose] 81 mg PO DAILY 04/29/16 01/16/17 History Omeprazole 20 mg PO DAILY 04/29/16 01/16/17 History Furosemide [Lasix] 40 mg PO DAILY 07/24/16 01/16/17 History Insulin Lispro [humaLOG Kwikpen] See Protocol SQ AC-TID PRN 07/24/16 01/16/17 History Meclizine [Antivert] 25 mg PO TID 07/24/16 01/16/17 History Nebivolol HCl [Bystolic] 20 mg PO DAILY 07/24/16 01/16/17 History Albuterol Nebulized [Ventolin 2.5 mg INHALATION RT-Q4H PRN 01/16/17 01/16/17 History Nebulized] Allopurinol [Zyloprim] 300 mg PO DAILY 01/16/17 01/16/17 History Amiodarone [Cordarone] 200 mg PO BID 01/16/17 01/16/17 History Atorvastatin [Lipitor] 40 mg PO DAILY 01/16/17 01/16/17 History Isosorbide Mononitrate ER [Imdur] 30 mg PO DAILY 01/16/17 01/16/17 History Levothyroxine Sodium [Synthroid] 75 mcg PO DAILY 01/16/17 01/16/17 History Lisinopril 30 mg PO DAILY 01/16/17 01/16/17 History Loratadine [Claritin] 10 mg PO DAILY 01/16/17 01/16/17 History Potassium Chloride [Klor-Con 20] 20 meq PO DAILY 01/16/17 01/16/17 History Rivaroxaban [Xarelto] 15 mg PO DAILY 01/16/17 01/16/17 History Spironolactone [Aldactone] 50 mg PO DAILY 01/16/17 01/16/17 History Allergies Allergy/AdvReac Type Severity Reaction Status Date / Time iron Allergy Rash/Hives Verified 07/29/16 09:23 Sulfa (Sulfonamide Allergy Rash/Hives Verified 07/29/16 09:23 Antibiotics) Tetanus Vaccines and Toxoid Allergy Swelling Verified 07/29/16 09:23 Physical Exam Vitals: Vital Signs Temp Pulse Resp BP Pulse Ox 01/17/17 11:00 66 16 110/59 92 L 01/17/17 10:30 64 14 107/45 99 01/17/17 10:00 66 8 L 104/52 99 01/17/17 09:30 67 15 99/49 98 01/17/17 09:00 65 14 102/48 98 01/17/17 08:30 68 15 99/48 97 01/17/17 08:00 98.7 F 66 30 H 100/48 98 01/17/17 07:30 65 27 H 99/53 95 01/17/17 07:00 67 18 114/52 94 L 01/17/17 06:30 67 28 H 97/43 97 01/17/17 06:00 66 18 89/48 94 L 01/17/17 05:30 69 15 101/49 93 L 01/17/17 05:00 71 15 101/43 96 01/17/17 04:30 72 19 101/45 96 01/17/17 04:00 98.1 F 70 15 104/51 93 L 01/17/17 03:30 69 20 112/63 87 L 01/17/17 03:00 68 23 102/49 93 L 01/17/17 02:30 69 17 114/59 94 L 01/17/17 02:00 69 19 102/77 94 L 01/17/17 01:30 69 26 H 122/66 96 01/17/17 01:00 68 19 113/57 97 01/17/17 00:30 66 13 100/66 99 01/17/17 00:00 97.7 F 69 15 129/77 97 01/16/17 23:30 68 17 138/86 97 01/16/17 23:00 68 17 116/66 96 01/16/17 22:55 68 18 116/66 95 01/16/17 22:30 68 18 91/74 91 L 01/16/17 22:00 97.4 F L 68 12 119/79 94 L 01/16/17 21:30 65 23 109/80 95 01/16/17 21:00 63 19 94/35 92 L 01/16/17 20:30 62 20 113/54 87 L 01/16/17 20:00 50 L 26 H 92/42 87 L 01/16/17 19:30 45 L 28 H 69/47 84 L 01/16/17 19:00 44 L 21 143/120 01/16/17 18:47 61 28 H 01/16/17 17:35 38 L 18 101/51 01/16/17 17:04 52 L 18 100/52 01/16/17 16:55 45 L 01/16/17 16:54 38 L 18 104/52 01/16/17 16:43 39 L 18 117/56 01/16/17 16:35 37 L 18 104/54 01/16/17 16:28 38 L 18 108/50 01/16/17 16:26 32 L 18 89/53 01/16/17 16:21 30 L 18 95/53 01/16/17 15:58 29 L 18 01/16/17 15:55 38 L 18 106/49 01/16/17 15:52 40 L 18 98/52 01/16/17 15:35 96.5 F L 30 L 18 68/42 Intake and Output 01/16/17 01/17/17 01/17/17 22:59 06:59 14:59 Intake Total 400 800 664.492 Output Total 175 1725 825 Balance 225 -925 -160.508 Intake: IV 400 800 340 Calcium Gluconate 1,000 100 mg In Sodium Chloride 0.9 % 100 ml @ 100 mls/hr IVPB ONCE ONE Rx#: [id number] Sodium Chloride 0.9% 1, 300 800 340 000 ml @ 100 mls/hr IV . Q10H [facility] Rx#:[id number] Intake, IV Titration 324.492 Amount DOPamine DRIP 800 mg In 5 Dextrose/Water 1 500ml. bag @ 5 MCG/KG/MIN 24.57 mls/hr IV .[id number] [facility] Rx #:[id number] DOPamine DRIP 800 mg In 219.492 Dextrose/Water 1 500ml. bag @ 5 MCG/KG/MIN 24.57 mls/hr IV .[id number] [facility] Rx #:[id number] cefTRIAXone 1,000 mg In 100 Sodium Chloride 0.9% 50 ml @ 100 mls/hr IVPB Q24HR [facility] Rx#:[id number] Output: Urine 175 1725 825 Other: Voiding Method Indwelling Catheter Indwelling Catheter Indwelling Catheter # Bowel Movements 0 0 Weight 131.088 kg 127.6 kg General: The patient is awake and alert, in no distress. She is morbidly obese Eye: there is normal conjunctiva bilaterally. Neck: The neck is supple, there is no JVD. Cardiovascular: Normal S1-S2, no S3-S4, no murmurs. Respiratory: Lungs clear to anterior chest auscultation bilaterally Gastrointestinal: Abdomen is obese but soft, nontender Musculoskeletal: There is +2 pedal edema. Neurological:. Speech is normal. Skin: Skin is warm and dry Results CBC & Chem 7: 01/17/17 04:00 01/17/17 04:00 Labs: Abnormal Lab Results - Last 24 Hours (Table) 01/16/17 01/16/17 01/16/17 Range/Units 15:29 15:45 15:45 WBC 20.9 H (3.8-10.6) k/uL RBC (3.80-5.40) m/uL Hgb (11.4-16.0) gm/dL Hct (34.0-46.0) % RDW 16.7 H (11.5-15.5) % Neutrophils # 19.0 H (1.3-7.7) k/uL PT (9.0-12.0) sec INR (<1.2) APTT (22.0-30.0) sec Sodium (137-145) mmol/L Potassium (3.5-5.1) mmol/L Carbon Dioxide (22-30) mmol/L BUN (7-17) mg/dL Creatinine (0.52-1.04) mg/dL Glucose (74-99) mg/dL POC Glucose (mg/dL) 119 H (75-99) mg/dL Phosphorus (2.5-4.5) mg/dL Magnesium (1.6-2.3) mg/dL Total Creatine Kinase 193 H (30-135) U/L Total Protein (6.3-8.2) g/dL TSH (0.465-4.680) mIU/L Free T3 pg/mL (2.8-5.3) pg/ml Urine Appearance (Clear) Urine Protein (Negative) Urine Blood (Negative) Ur Leukocyte Esterase (Negative) Urine RBC (0-5) /hpf Urine WBC (0-5) /hpf Urine WBC Clumps (None) /hpf Urine Bacteria (None) /hpf Urine Yeast (Budding) (None) /hpf 01/16/17 01/16/17 01/16/17 Range/Units 15:45 15:45 15:45 WBC (3.8-10.6) k/uL RBC (3.80-5.40) m/uL Hgb (11.4-16.0) gm/dL Hct (34.0-46.0) % RDW (11.5-15.5) % Neutrophils # (1.3-7.7) k/uL PT 12.8 H (9.0-12.0) sec INR 1.3 H (<1.2) APTT 32.1 H (22.0-30.0) sec Sodium 133 L (137-145) mmol/L Potassium 7.8 H* (3.5-5.1) mmol/L Carbon Dioxide 9 L* (22-30) mmol/L BUN 191 H* (7-17) mg/dL Creatinine 8.80 H* (0.52-1.04) mg/dL Glucose 126 H (74-99) mg/dL POC Glucose (mg/dL) (75-99) mg/dL Phosphorus (2.5-4.5) mg/dL Magnesium 2.7 H (1.6-2.3) mg/dL Total Creatine Kinase (30-135) U/L Total Protein (6.3-8.2) g/dL TSH 8.090 H (0.465-4.680) mIU/L Free T3 pg/mL 2.3 L (2.8-5.3) pg/ml Urine Appearance (Clear) Urine Protein (Negative) Urine Blood (Negative) Ur Leukocyte Esterase (Negative) Urine RBC (0-5) /hpf Urine WBC (0-5) /hpf Urine WBC Clumps (None) /hpf Urine Bacteria (None) /hpf Urine Yeast (Budding) (None) /hpf 01/16/17 01/16/17 01/17/17 Range/Units 18:50 19:00 04:00 WBC 19.4 H (3.8-10.6) k/uL RBC 3.50 L (3.80-5.40) m/uL Hgb 10.0 L D (11.4-16.0) gm/dL Hct 31.0 L (34.0-46.0) % RDW 17.2 H (11.5-15.5) % Neutrophils # 17.0 H (1.3-7.7) k/uL PT (9.0-12.0) sec INR (<1.2) APTT (22.0-30.0) sec Sodium (137-145) mmol/L Potassium (3.5-5.1) mmol/L Carbon Dioxide (22-30) mmol/L BUN (7-17) mg/dL Creatinine (0.52-1.04) mg/dL Glucose (74-99) mg/dL POC Glucose (mg/dL) 159 H (75-99) mg/dL Phosphorus (2.5-4.5) mg/dL Magnesium (1.6-2.3) mg/dL Total Creatine Kinase (30-135) U/L Total Protein (6.3-8.2) g/dL TSH (0.465-4.680) mIU/L Free T3 pg/mL (2.8-5.3) pg/ml Urine Appearance Turbid H (Clear) Urine Protein 2+ H (Negative) Urine Blood Moderate H (Negative) Ur Leukocyte Esterase Large H (Negative) Urine RBC 20 H (0-5) /hpf Urine WBC >182 H (0-5) /hpf Urine WBC Clumps Many H (None) /hpf Urine Bacteria Many H (None) /hpf Urine Yeast (Budding) Many H (None) /hpf 01/17/17 01/17/17 01/17/17 Range/Units 04:00 04:00 07:19 WBC (3.8-10.6) k/uL RBC (3.80-5.40) m/uL Hgb (11.4-16.0) gm/dL Hct (34.0-46.0) % RDW (11.5-15.5) % Neutrophils # (1.3-7.7) k/uL PT 12.6 H (9.0-12.0) sec INR 1.3 H (<1.2) APTT (22.0-30.0) sec Sodium 136 L (137-145) mmol/L Potassium (3.5-5.1) mmol/L Carbon Dioxide 20 L (22-30) mmol/L BUN 106 H* (7-17) mg/dL Creatinine 4.90 H (0.52-1.04) mg/dL Glucose (74-99) mg/dL POC Glucose (mg/dL) 100 H (75-99) mg/dL Phosphorus 6.4 H (2.5-4.5) mg/dL Magnesium (1.6-2.3) mg/dL Total Creatine Kinase (30-135) U/L Total Protein 6.1 L (6.3-8.2) g/dL TSH (0.465-4.680) mIU/L Free T3 pg/mL (2.8-5.3) pg/ml Urine Appearance (Clear) Urine Protein (Negative) Urine Blood (Negative) Ur Leukocyte Esterase (Negative) Urine RBC (0-5) /hpf Urine WBC (0-5) /hpf Urine WBC Clumps (None) /hpf Urine Bacteria (None) /hpf Urine Yeast (Budding) (None) /hpf 01/17/17 Range/Units 12:00 WBC (3.8-10.6) k/uL RBC (3.80-5.40) m/uL Hgb (11.4-16.0) gm/dL Hct (34.0-46.0) % RDW (11.5-15.5) % Neutrophils # (1.3-7.7) k/uL PT (9.0-12.0) sec INR (<1.2) APTT (22.0-30.0) sec Sodium (137-145) mmol/L Potassium (3.5-5.1) mmol/L Carbon Dioxide (22-30) mmol/L BUN (7-17) mg/dL Creatinine (0.52-1.04) mg/dL Glucose (74-99) mg/dL POC Glucose (mg/dL) 103 H (75-99) mg/dL Phosphorus (2.5-4.5) mg/dL Magnesium (1.6-2.3) mg/dL Total Creatine Kinase (30-135) U/L Total Protein (6.3-8.2) g/dL TSH (0.465-4.680) mIU/L Free T3 pg/mL (2.8-5.3) pg/ml Urine Appearance (Clear) Urine Protein (Negative) Urine Blood (Negative) Ur Leukocyte Esterase (Negative) Urine RBC (0-5) /hpf Urine WBC (0-5) /hpf Urine WBC Clumps (None) /hpf Urine Bacteria (None) /hpf Urine Yeast (Budding) (None) /hpf Microbiology - Last 24 Hours (Table) 01/16/17 19:00 Urine Culture - Preliminary Urine,Catheterized Assessment and Plan Plan: 1. Acute toxo metabolic encephalopathy 2. Acute kidney failure requiring emergent hemodialysis 3. Severe hyperkalemia improved with hemodialysis 4. Metabolic acidosis secondary to #2 5. Urinary tract infection currently on IV ceftriaxone awaiting urine culture 6. Significant bradycardia with junctional rhythm on presentation now heart rate improved. Patient was seen and evaluated by cardiology. Home medication is been on hold for now. 7. History of paroxysmal atrial fibrillation on anti-coagulation with Rivaroxaban and at home would hold anticoagulation for now given critical condition and continue subcu heparin Today, I reviewed her medication list the lab work results. Continue current regimen for now. Appreciate trousseau consultant's recommendations. Her prognosis is guarded given complexity of her medical problems. No family members at bedside to be updated about her condition. Continue ICU care. Repeat lab work in the morning.
[2017-01-17] MEDS: DOPamine DRIP 800 MG in DEXTROSE/WATER 1 500ML.BAG IV SCH (14:36)
[2017-01-17 17:08] LABS: Glucose,Whole Blood 106 mg/dL (75-99)
--- NOTE | 2017-01-17 18:05 | PN ---
This is a 76 -year-old female who presented to the emergency room for mental status changes. She apparently had depressed level of consciousness. When she was seen there, she apparently was thought to have acute renal failure, hypokalemia and bradycardia which is symptomatic. She was also possibly thought to have sepsis and atrial fibrillation. She was seen initially by Dr. Voss. The patient did have a central line placement dialysis catheter placed. She had a right triple lumen catheter placed in the internal jugular site. Currently she is doing reasonably well. She is on O2 at 4 L. She is getting Dopamine at 5 mcg per kg per minute for her symptomatic bradycardia and a 0.9 of 60. She is going for CT scan of the brain because of mental status changes. Her primary doctor is Dr. Gonzalez. She has seen Dr. Barber and nephrology Dr. Carmichael vascular surgery and also cardiology for her bradycardia. She had her first dialysis yesterday on January 16. Current vital signs include a normal temperature. Heart rate 66, respiratory rate 15. Blood pressure 104/52. Mean 69. Saturations are 99% on 4 L. Appears in no acute distress. HEENT examination is grossly unremarkable. She does open her eyes. Neck is supple. Right internal jugular triple lumen catheter noted. No adenopathy. Cardiovascular examination reveals regular rhythm and rate. S1 , S2 normal. Heart rate about mid 60s. Lungs are relatively clear. Abdomen is obese. Bowel sounds are heard. Extremities intact. No cyanosis, clubbing or edema. Chest x-ray shows resolving or improving CHF. Labs are reviewed. White count 19.4, hemoglobin 10, hematocrit 31.0. Platelet count 275,000. PT/INR 12.6 and 1.3. Sodium 136, potassium 4.9, chloride 103. CO2 20, BUN and creatinine were 106 and 4.90. Her initial BUN and creatinine were at 191 and 8.80. The rest of the labs look okay. Her urine is turbid 2+ protein, moderate blood. Large leukocyte esterase. 20 RBC, greater than 182 WBC and many bacteria consistent with UTI. Microbiology is currently pending. X-rays as mentioned suggests a mild CHF. Medications are reviewed. She is on a number of medications includin. Ceftriaxone. 2. Dopamine drip. 3. Narcan. 4. Protonix. ASSESSMENT: 1. Severe bradycardia with hypotension and partly related to underlying severe hyperkalemia from acute renal failure. 2. Acute renal failure with hyperkalemia. 3. Urinary tract infection/urosepsis. 4. Chronic atrial fibrillation. 5. Chronic obstructive pulmonary disease. 6. Diabetes. 7. History of deep venous thrombosis. 8. History of gastroesophageal reflux disease. 9. History of hyperlipidemia. 10. History of hypertension. 11. History of degenerative joint disease. 12. Rheumatoid arthritis. 13. Hypothyroidism. PLAN: Medications are reviewed. Additional recommendations and suggestions are forthcoming. Prognosis is guarded. We will continue to follow closely. She is being seen by a number of doctors including nephrology, vascular surgery and cardiology. CT scan of the brain planned today. Will follow-up. BRENDON
[2017-01-17 18:37] LABS: Calcium 8.7 mg/dL (8.4-10.2); Potassium 5.1 mmol/L (3.5-5.1)
[2017-01-17] MEDS: HEPARIN SODIUM,PORCINE 5,000 UNIT/ML 1 ML VIAL SQ SCH (23:04)
[2017-01-17 23:59] LABS: Glucose,Whole Blood 110 mg/dL (75-99)
[2017-01-18] MEDS: SODIUM CHLORIDE 0.9% 1,000 ML IV SCH ×4 (00:31→20:04)
[2017-01-18 05:05] LABS: Anisocytosis Slight; Basophils % (A) 0 %; CH 29.2; CHCM 32.6; Eosinophils # (A) 0.1 k/uL (0-0.7); Eosinophils % (A) 1 %; HCT 29.2 % (34.0-46.0); HDW 2.75; HGB 9.4 gm/dL (11.4-16.0); Luc # (Auto) 0.27; Luc % (Auto) 2; Lymphocytes # (A) 1.1 k/uL (1.0-4.8); Lymphocytes % (A) 8 %; MCHC 32.3 g/dL (31.0-37.0); MCV 89.8 fL (80.0-100.0); Mean Platelet Volume 8.5; Monocytes # (A) 0.8 k/uL (0-1.0); Monocytes % (A) 6 %; Neutrophils # (A) 11.3 k/uL (1.3-7.7); Neutrophils % (A) 83 %; RBC 3.25 m/uL (3.80-5.40); RDW 16.4 % (11.5-15.5); WBC 13.5 k/uL (3.8-10.6)
[2017-01-18 05:14] LABS: INR 1.1 (<1.2); Prothrombin Time 10.8 sec (9.0-12.0)
[2017-01-18 05:19] LABS: Calcium 8.8 mg/dL (8.4-10.2); Magnesium 2.1 mg/dL (1.6-2.3); Phosphorous 4.5 mg/dL (2.5-4.5); Potassium 4.9 mmol/L (3.5-5.1)
[2017-01-18 05:59] LABS: Glucose,Whole Blood 110 mg/dL (75-99)
[2017-01-18] MEDS: LEVOTHYROXINE 75 MCG TAB PO SCH (07:09)
--- NOTE | 2017-01-18 07:09 | XR ---
EXAMINATION TYPE: XR chest 1V DATE OF EXAM: 01/18/2017 HISTORY: ICU follow up. REFERENCE: Previous study dated 01/17/2017. FINDINGS: There is a right internal jugular catheter in place. Its tip is in the superior vena cava. The heart enlarged. There is vascular congestion and mild interstitial change. I suspect small, bilat eral effusions. IMPRESSION: CONTINUING MILD CHANGES OF CONGESTIVE HEART FAILURE.
[2017-01-18] MEDS: HEPARIN SODIUM,PORCINE 5,000 UNIT/ML 1 ML VIAL SQ SCH ×2 (07:59→21:18)
[2017-01-18] MEDS: PANTOPRAZOLE 40 MG/10 ML VIAL IV SCH (07:59)
[2017-01-18] MEDS ORDERED: ONDANSETRON 4 MG/2 ML VIAL ONE (09:00)
[2017-01-18] MEDS ORDERED: ONDANSETRON 4 MG/2 ML VIAL IVP STA (09:17)
--- NOTE | 2017-01-18 09:25 | P.PN ---
Subjective Principal diagnosis: This is a 76-year-old female seen in consultation because of acute kidney injury secondary to bradycardia, gram-negative sepsis with pyelonephritis. She was obtunded when she came in and her heart rate is in the 30s. She was dialyzed late Thursday 2 days ago, once. She has a Chapin catheter in left groin. Yesterday she was not dialyzed. She remains afebrile. She is still on dopamine because of the bradycardia is other time of admission. Blood pressure remains somewhat low. She is making large amounts of urine or creatinine has come down. Both her urine and blood are growing gram negatives to be further identified. Currently she is on Rocephin. This morning she was having some dry heaves. She failed her swallow test therefore is unable to eat. Currently on 60 mL of IV fluids. She'll awake and alert today compared to yesterday when she was drowsy. A computed tomography scan of the brain was unremarkable. Her TSH is slightly high she has been on replacement therapy at home and this may need to be adjusted up slightly. Rest of her chemistry panel is normal Objective - Vital Signs Vital signs: Vital Signs Temp 98.6 F 01/18/17 04:00 Pulse 67 01/18/17 08:30 Resp 18 01/18/17 08:30 BP 104/44 01/18/17 08:30 Pulse Ox 93 L 01/18/17 08:30 Intake & Output 01/17/17 01/18/17 01/18/17 18:59 06:59 18:59 Intake Total 0100.090 5110 160 Output Total 1825 1825 375 Balance -499.509 -665 -215 Weight 127.6 kg 127.6 kg Intake: IV 820 1160 160 Sodium Chloride 0.9% 1, 820 1160 160 000 ml @ 100 mls/hr IV . Q10H [facility] Rx#:[id number] Intake, IV Titration 505.491 Amount DOPamine DRIP 800 mg In 5 Dextrose/Water 1 500ml. bag @ 5 MCG/KG/MIN 24.57 mls/hr IV .[id number] [facility] Rx #:[id number] DOPamine DRIP 800 mg In 400.491 Dextrose/Water 1 500ml. bag @ 5 MCG/KG/MIN 24.57 mls/hr IV .[id number] [facility] Rx #:[id number] cefTRIAXone 1,000 mg In 100 Sodium Chloride 0.9% 50 ml @ 100 mls/hr IVPB Q24HR [facility] Rx#:[id number] Oral 0 Output: Urine 1825 1825 375 Other: Voiding Method Indwelling Catheter Indwelling Catheter Indwelling Catheter # Bowel Movements 0 0 Examination she is awake alert oriented today. This is a completely different since yesterday when she was drowsy. Neck is supple no facial asymmetry pupils are equal. Lungs are clear to auscultation and percussion good air entry bilaterally A chest x-ray is unremarkable this morning. Heart sounds are unremarkable for any murmur rub gallop. On the monitor she is showing normal sinus rhythm Abdomen is soft nontender obese Extremity exam was 2+ edema she has chronic stasis changes. Neurologically awake alert oriented. No focal motor deficit - Labs CBC & Chem 7: 01/18/17 05:00 01/18/17 05:00 Labs: Abnormal Lab Results - Last 24 Hours (Table) 01/17/17 01/17/17 01/17/17 Range/Units 12:00 17:07 18:05 WBC (3.8-10.6) k/uL RBC (3.80-5.40) m/uL Hgb (11.4-16.0) gm/dL Hct (34.0-46.0) % RDW (11.5-15.5) % Neutrophils # (1.3-7.7) k/uL Chloride 108 H (98-107) mmol/L Carbon Dioxide 21 L (22-30) mmol/L BUN 91 H* (7-17) mg/dL Creatinine 3.68 H (0.52-1.04) mg/dL Glucose 101 H (74-99) mg/dL POC Glucose (mg/dL) 103 H 106 H (75-99) mg/dL 01/17/17 01/18/17 01/18/17 Range/Units 23:57 05:00 05:00 WBC 13.5 H (3.8-10.6) k/uL RBC 3.25 L (3.80-5.40) m/uL Hgb 9.4 L (11.4-16.0) gm/dL Hct 29.2 L (34.0-46.0) % RDW 16.4 H (11.5-15.5) % Neutrophils # 11.3 H (1.3-7.7) k/uL Chloride 113 H (98-107) mmol/L Carbon Dioxide 21 L (22-30) mmol/L BUN 74 H (7-17) mg/dL Creatinine 2.70 H (0.52-1.04) mg/dL Glucose (74-99) mg/dL POC Glucose (mg/dL) 110 H (75-99) mg/dL 01/18/17 Range/Units 05:58 WBC (3.8-10.6) k/uL RBC (3.80-5.40) m/uL Hgb (11.4-16.0) gm/dL Hct (34.0-46.0) % RDW (11.5-15.5) % Neutrophils # (1.3-7.7) k/uL Chloride (98-107) mmol/L Carbon Dioxide (22-30) mmol/L BUN (7-17) mg/dL Creatinine (0.52-1.04) mg/dL Glucose (74-99) mg/dL POC Glucose (mg/dL) 110 H (75-99) mg/dL Microbiology - Last 24 Hours (Table) 01/16/17 20:00 Blood Culture Gram Stain - Preliminary Blood 01/16/17 20:00 Blood Culture - Final Blood 01/16/17 19:00 Urine Culture - Preliminary Urine,Catheterized Gram Neg Bacilli Assessment and Plan Plan: Impression. 1. Acute kidney injury secondary to slightly low blood pressure in the 90s, additionally bradycardia with heart rate in the 30s,. Previous creatinine on 2 months ago was 0.9. Urinalysis shows WBCs too numerous to count and 20 rbc's and moderate blood. She has gram-negative sepsis and urinary tract infections therefore she has pyelonephritis. She has good urine output and his creatinine is improved to 2.7 from 3.680 yesterday,therefore she does not need any more dialysis. She has a Chapin catheter in her left groin that needs to be removed. 2. Severe hyperkalemia secondary to acute kidney injury,' secondary to Aldactone, and 2 lisinopril. Resolved. 3. Severe gap and non-gap acidosis, with a bicarb of 9, delta bicarb is 15 and the delta gap is 8. Etiology is acute kidney injury. Anion gap now improved to 9 and bicarb is 21. 5. Obtundation secondary to sepsis which is resolved now. The brain scan was unremarkable. 6. Mild early diabetic nephropathy with proteinuria 2+ but normal creatinine. 7. Chronic lymphedema. 8. Obesity. 9. Obstructive sleep apnea possibly, COPD. Recommendation. 1. Bolus 250 mL of saline and increase IV fluids to 100 mL from 60 mL to see if we can improve her blood pressure and taper off the dopamine 2. No further dialysis. We'll watch labs closely and urine output closely. 3. I'll defer to cardiology regarding the dopamine. 4.Cover with antibiotics for pyelonephritis 5. Zofran when necessary for her nausea 6. Ultrasound of the kidney to assess the reason for her pyelonephritis
[2017-01-18] MEDS: SODIUM CHLORIDE 0.9% 250 ML IV SCH ×2 (09:30→22:16)
--- NOTE | 2017-01-18 10:20 | P.PN ---
Subjective Principal diagnosis: Bradycardia This is a pleasant 76-year-old female patient who was brought to the emergency room with change in mental status. She was found to be severely bradycardic with heart rate in the 30s. The EKG showed junctional rhythm with peaked T waves. The patient was found to be severely hyperkalemic and she was in acute renal failure. An emergent dialysis was performed. On follow-up with the patient today she is not as lethargic as yesterday. The heart rate has recovered very nicely. The potassium is back to normal. The creatinine is trending down. I'm going to obtain an echocardiogram in view of systolic murmur on examination. We'll continue monitor the heart rate and blood pressure and continue monitor the rhythm. Objective - Vital Signs Vital signs: Vital Signs Temp 97.7 F 01/18/17 08:00 Pulse 72 01/18/17 09:00 Resp 12 01/18/17 09:00 BP 115/107 01/18/17 09:00 Pulse Ox 92 L 01/18/17 09:00 Intake & Output 01/17/17 01/18/17 01/18/17 18:59 06:59 18:59 Intake Total 2700.260 6658 1159 Output Total 1825 1825 425 Balance -499.509 -665 734 Weight 127.6 kg 127.6 kg Intake: IV 820 1160 1159 Sodium Chloride 0.9% 1, 820 1160 1159 000 ml @ 100 mls/hr IV . Q10H [facility] Rx#:[id number] Intake, IV Titration 505.491 Amount DOPamine DRIP 800 mg In 5 Dextrose/Water 1 500ml. bag @ 5 MCG/KG/MIN 24.57 mls/hr IV .[id number] [facility] Rx #:[id number] DOPamine DRIP 800 mg In 400.491 Dextrose/Water 1 500ml. bag @ 5 MCG/KG/MIN 24.57 mls/hr IV .[id number] [facility] Rx #:[id number] cefTRIAXone 1,000 mg In 100 Sodium Chloride 0.9% 50 ml @ 100 mls/hr IVPB Q24HR [facility] Rx#:[id number] Oral 0 Output: Urine 1825 1825 425 Other: Voiding Method Indwelling Catheter Indwelling Catheter Indwelling Catheter # Bowel Movements 0 0 - Constitutional General appearance: Present: no acute distress - Respiratory Respiratory: bilateral: CTA - Cardiovascular Rhythm: regular Heart sounds: normal: S1, S2 - Labs CBC & Chem 7: 01/18/17 05:00 01/18/17 05:00 Labs: Abnormal Lab Results - Last 24 Hours (Table) 01/17/17 01/17/17 01/17/17 Range/Units 12:00 17:07 18:05 WBC (3.8-10.6) k/uL RBC (3.80-5.40) m/uL Hgb (11.4-16.0) gm/dL Hct (34.0-46.0) % RDW (11.5-15.5) % Neutrophils # (1.3-7.7) k/uL Chloride 108 H (98-107) mmol/L Carbon Dioxide 21 L (22-30) mmol/L BUN 91 H* (7-17) mg/dL Creatinine 3.68 H (0.52-1.04) mg/dL Glucose 101 H (74-99) mg/dL POC Glucose (mg/dL) 103 H 106 H (75-99) mg/dL 01/17/17 01/18/17 01/18/17 Range/Units 23:57 05:00 05:00 WBC 13.5 H (3.8-10.6) k/uL RBC 3.25 L (3.80-5.40) m/uL Hgb 9.4 L (11.4-16.0) gm/dL Hct 29.2 L (34.0-46.0) % RDW 16.4 H (11.5-15.5) % Neutrophils # 11.3 H (1.3-7.7) k/uL Chloride 113 H (98-107) mmol/L Carbon Dioxide 21 L (22-30) mmol/L BUN 74 H (7-17) mg/dL Creatinine 2.70 H (0.52-1.04) mg/dL Glucose (74-99) mg/dL POC Glucose (mg/dL) 110 H (75-99) mg/dL 01/18/17 Range/Units 05:58 WBC (3.8-10.6) k/uL RBC (3.80-5.40) m/uL Hgb (11.4-16.0) gm/dL Hct (34.0-46.0) % RDW (11.5-15.5) % Neutrophils # (1.3-7.7) k/uL Chloride (98-107) mmol/L Carbon Dioxide (22-30) mmol/L BUN (7-17) mg/dL Creatinine (0.52-1.04) mg/dL Glucose (74-99) mg/dL POC Glucose (mg/dL) 110 H (75-99) mg/dL Microbiology - Last 24 Hours (Table) 01/16/17 20:00 Blood Culture Gram Stain - Preliminary Blood 01/16/17 20:00 Blood Culture - Final Blood 01/16/17 19:00 Urine Culture - Preliminary Urine,Catheterized Gram Neg Bacilli Assessment and Plan Plan: Assessment Acute renal failure Hyperkalemia Cardiac arrhythmia Change in mental status Plan Continue monitor the heart rate and rhythm Echocardiogram with Doppler Follow-up with the patient
[2017-01-18 11:57] LABS: Glucose,Whole Blood 121 mg/dL (75-99)
[2017-01-18 12:25] LABS: Glucose,Whole Blood 114 mg/dL (75-99)
--- NOTE | 2017-01-18 17:25 | P.PN ---
Subjective Patient is doing a lot better today. She is more awake. Her mentation is improved significantly according to her son and nurse. Objective - Vital Signs Vital signs: Vital Signs Temp 97.7 F 01/18/17 08:00 Pulse 63 01/18/17 17:00 Resp 31 H 01/18/17 17:00 BP 119/48 01/18/17 16:30 Pulse Ox 86 L 01/18/17 16:30 Intake & Output 01/17/17 01/18/17 01/18/17 18:59 06:59 18:59 Intake Total 2962.681 5379 1259 Output Total 1825 1825 775 Balance -499.509 -665 484 Weight 127.6 kg 127.6 kg Intake: IV 820 1160 1259 Sodium Chloride 0.9% 1, 820 1160 1259 000 ml @ 100 mls/hr IV . Q10H [facility] Rx#:[id number] Intake, IV Titration 505.491 Amount DOPamine DRIP 800 mg In 5 Dextrose/Water 1 500ml. bag @ 5 MCG/KG/MIN 24.57 mls/hr IV .[id number] [facility] Rx #:[id number] DOPamine DRIP 800 mg In 400.491 Dextrose/Water 1 500ml. bag @ 5 MCG/KG/MIN 24.57 mls/hr IV .[id number] [facility] Rx #:[id number] cefTRIAXone 1,000 mg In 100 Sodium Chloride 0.9% 50 ml @ 100 mls/hr IVPB Q24HR [facility] Rx#:[id number] Oral 0 Output: Urine 1825 1825 775 Other: Voiding Method Indwelling Catheter Indwelling Catheter Indwelling Catheter # Bowel Movements 0 0 - Exam General: The patient is awake and alert, in no distress Eye: there is normal conjunctiva bilaterally. Neck: The neck is supple, there is no JVD. Cardiovascular: Normal S1-S2, no S3-S4, no murmurs. Respiratory: Lungs clear to auscultation bilaterally Gastrointestinal: Abdomen is soft, nontender Musculoskeletal: There is no pedal edema. Neurological:. Speech is normal. Skin: Skin is warm and dry - Labs CBC & Chem 7: 01/18/17 05:00 01/18/17 05:00 Labs: Abnormal Lab Results - Last 24 Hours (Table) 01/17/17 01/17/1717 Range/Units 18:05 23:57 05:00 WBC (3.8-10.6) k/uL RBC (3.80-5.40) m/uL Hgb (11.4-16.0) gm/dL Hct (34.0-46.0) % RDW (11.5-15.5) % Neutrophils # (1.3-7.7) k/uL Chloride 108 H 113 H (98-107) mmol/L Carbon Dioxide 21 L 21 L (22-30) mmol/L BUN 91 H* 74 H (7-17) mg/dL Creatinine 3.68 H 2.70 H (0.52-1.04) mg/dL Glucose 101 H (74-99) mg/dL POC Glucose (mg/dL) 110 H (75-99) mg/dL 01/18/17 01/18/17 01/18/17 Range/Units 05:00 05:58 11:55 WBC 13.5 H (3.8-10.6) k/uL RBC 3.25 L (3.80-5.40) m/uL Hgb 9.4 L (11.4-16.0) gm/dL Hct 29.2 L (34.0-46.0) % RDW 16.4 H (11.5-15.5) % Neutrophils # 11.3 H (1.3-7.7) k/uL Chloride (98-107) mmol/L Carbon Dioxide (22-30) mmol/L BUN (7-17) mg/dL Creatinine (0.52-1.04) mg/dL Glucose (74-99) mg/dL POC Glucose (mg/dL) 110 H 121 H (75-99) mg/dL 01/18/17 Range/Units 12:23 WBC (3.8-10.6) k/uL RBC (3.80-5.40) m/uL Hgb (11.4-16.0) gm/dL Hct (34.0-46.0) % RDW (11.5-15.5) % Neutrophils # (1.3-7.7) k/uL Chloride (98-107) mmol/L Carbon Dioxide (22-30) mmol/L BUN (7-17) mg/dL Creatinine (0.52-1.04) mg/dL Glucose (74-99) mg/dL POC Glucose (mg/dL) 114 H (75-99) mg/dL Microbiology - Last 24 Hours (Table) 01/16/17 20:00 Blood Culture Gram Stain - Preliminary Blood 01/16/17 20:00 Blood Culture - Final Blood 01/16/17 19:00 Urine Culture - Preliminary Urine,Catheterized Gram Neg Bacilli Assessment and Plan Plan: 1. Acute toxo metabolic encephalopathy 2. Acute kidney failure requiring emergent hemodialysis: Kidney function improving off dialysis. Good urine output. 3. Severe hyperkalemia improved with hemodialysis 4. Metabolic acidosis secondary to #2 5. Urinary tract infection currently on IV ceftriaxone awaiting urine culture 6. Significant bradycardia with junctional rhythm on presentation now heart rate improved. Patient was seen and evaluated by cardiology. Home medication is been on hold for now. 7. History of paroxysmal atrial fibrillation on anti-coagulation with Rivaroxaban and at home would hold anticoagulation for now and continue subcu heparin 8. Bacteremia with gram-negative bacilli. I would order repeat blood culture today. Continue IV ceftriaxone as patient is improving clinically. Today, I reviewed her medication list the lab work results. Continue current regimen for now. Appreciate forestry consultant's recommendations. Continue ICU care. Repeat lab work in the morning.
[2017-01-18 18:20] LABS: Glucose,Whole Blood 96 mg/dL (75-99)
[2017-01-18] MEDS: INSULIN LISPRO (humaLOG) 300 UNIT/3 ML VIAL SQ SCH ×2 (18:56→21:18)
[2017-01-18 21:18] LABS: Glucose,Whole Blood 228 mg/dL (75-99)
[2017-01-18] MEDS: DOPamine DRIP 800 MG in DEXTROSE/WATER 1 500ML.BAG IV SCH (22:16)
[2017-01-19 05:22] LABS: Anisocytosis Slight; Basophils % (A) 0 %; CH 29.3; CHCM 31.5; Eosinophils # (A) 0.1 k/uL (0-0.7); Eosinophils % (A) 1 %; HCT 26.3 % (34.0-46.0); HDW 2.72; HGB 8.1 gm/dL (11.4-16.0); Hypochromasia Slight; Luc # (Auto) 0.26; Luc % (Auto) 2; Lymphocytes # (A) 1.1 k/uL (1.0-4.8); Lymphocytes % (A) 9 %; MCH 28.7 pg (25.0-35.0); MCHC 30.7 g/dL (31.0-37.0); MCV 93.3 fL (80.0-100.0); Mean Platelet Volume 9.5; Monocytes # (A) 0.6 k/uL (0-1.0); Monocytes % (A) 6 %; Neutrophils # (A) 9.3 k/uL (1.3-7.7); Neutrophils % (A) 82 %; RBC 2.82 m/uL (3.80-5.40); RDW 17.1 % (11.5-15.5); WBC 11.3 k/uL (3.8-10.6); WBC (Perox) 11.84
[2017-01-19 05:32] LABS: Calcium 8.5 mg/dL (8.4-10.2); Potassium 5.2 mmol/L (3.5-5.1)
[2017-01-19] MEDS: SODIUM CHLORIDE 0.9% 250 ML IV SCH ×6 (06:28→13:02)
[2017-01-19] MEDS: SODIUM CHLORIDE 0.9% 1,000 ML IV SCH (06:29)
[2017-01-19] MEDS: LEVOTHYROXINE 75 MCG TAB PO SCH (06:31)
[2017-01-19 07:39] LABS: Glucose,Whole Blood 92 mg/dL (75-99)
--- NOTE | 2017-01-19 07:40 | PN ---
CRITICAL CARE TIME: 36 minutes. A 76-year-old female who presented to the emergency room for mental status changes. She had a depressed level of consciousness. She also was found to have acute renal failure with hyperkalemia and bradycardia which is symptomatic. The patient was admitted with the diagnosis of sepsis, atrial fibrillation, hyperkalemia, bradycardia and mental status changes. She was initially seen by Dr. Voss who did place a central line. Also, a dialysis catheter was placed and she did receive dialysis. She is being followed by Nephrology. Also Cardiology. The mental status changes were assessed by CT scan. Her primary doctor is Dr. Gonzalez. I am covering for Dr. Voss. Today, she is a bit more awake. Having some nausea at this current time. I did ask the nurses to ask Cardiology what they want to do with the dopamine. It is currently still running at 5 mcg/kg per minute for the bradycardia. She is getting a 0.9 IV at 60, O2 at [address] Mcdonald the master yacht is going to give her some additional volume. Currently, her temperature is 97.7, heart rate is 67, respiratory rate 12, blood pressure 115/67. Saturations are 92% on 2 L. Appears in no acute distress. HEENT examination is unremarkable. Mixed membranes are moist. NECK: Supple. Full range of motion. No adenopathy or thyromegaly. Cardiovascular examination reveals regular rhythm and rate. Heart rate in the mid-60s to low 70s. S1, S2 normal. Lungs are clear. Breath sounds are equal. Abdomen is soft, bowel sounds are heard. Extremities are intact. Slight edema. Labs are reviewed. White count 13.5, hemoglobin 9.4, hematocrit at 29.2, platelet count 270,000, PT, INR normal. Sodium, potassium normal, chloride is 113, CO2 is 21. BUN and creatinine were 74 and 2.7 down from 91 and 3.68. A chest x-ray done on January 18 shows mild CHF. Microbiology is reviewed. The urine does show gram-negative bacilli. There has been no identification as yet. Medications are reviewed. She is on ceftriaxone which will probably cover the urinary pathogen. Levothyroxine with Narcan, Zofran, Protonix and IVs. ASSESSMENT: 1. Severe bradycardia with hypotension, partly related to underlying acute renal failure with hyperkalemia. 2. Acute renal failure with hyperkalemia. 3. Urinary tract infection/urosepsis to gram-negative bacilli. 4. History of chronic atrial fibrillation. 5. Chronic obstructive pulmonary disease. 6. Diabetes mellitus. 7. History of deep venous thrombosis. 8. Gastroesophageal reflux disease. 9. Hyperlipidemia. 10. Hypertension. 11. Degenerative joint arthritis. 12. Rheumatoid arthritis. 13. Hypothyroidism. PLAN: The patient will get some additional volume. We will ask Cardiology to give us an opinion about the dopamine. Additional recommendations and suggestions are forthcoming. In my opinion, she could go out to 6 selective. No additional recommendations are made. She just gets some Zofran. Will continue to follow. She is being followed by Primary, Nephrology, Vascular Surgery and Cardiology as well as myself. The CT of the brain was unremarkable for anything acute. MTDD
[2017-01-19] MEDS: PANTOPRAZOLE 40 MG TABLET PO SCH (08:02)
[2017-01-19] MEDS: INSULIN LISPRO (humaLOG) 300 UNIT/3 ML VIAL SQ SCH ×4 (08:03→20:25)
--- NOTE | 2017-01-19 08:18 | XR ---
EXAMINATION TYPE: XR chest 1V DATE OF EXAM: 01/19/2017 COMPARISON: NONE HISTORY: ICU follow-up exam. Congestive heart failure. Shortness of breath. TECHNIQUE: Single frontal view of the chest is obtained. FINDINGS: The patient is rotated, shifting the mediastinum to the right and obscuring partial visual ization of the right hemithorax. The right internal jugular central venous catheter again terminates in the superior vena cava. The heart is again mildly enlarged and similar appearing mild pulmonary va scular congestion with blunting of the left costophrenic angle are stable. Right costophrenic angle i s well delineated. IMPRESSION: Unchanged mild pulmonary vascular congestion, trace left pleural effusion and cardiomega ly, likely sequela of congestive heart failure.
[2017-01-19] MEDS: HEPARIN SODIUM,PORCINE 5,000 UNIT/ML 1 ML VIAL SQ SCH ×2 (08:51→20:25)
[2017-01-19] MEDS: ATORVASTATIN 40 MG TAB PO SCH (08:52)
--- NOTE | 2017-01-19 09:10 | P.PN ---
Subjective Principal diagnosis: Bradycardia This is a pleasant 76-year-old female patient who was brought to the emergency room with change in mental status. She was found to be severely bradycardic with heart rate in the 30s. The EKG showed junctional rhythm with peaked T waves. The patient was found to be severely hyperkalemic and she was in acute renal failure. An emergent dialysis was performed. On follow-up with the patient today she is not as lethargic as yesterday. The heart rate has recovered very nicely. The potassium is back to normal. The creatinine is trending down. I'm going to obtain an echocardiogram in view of systolic murmur on examination. We'll continue monitor the heart rate and blood pressure and continue monitor the rhythm. Objective - Vital Signs Vital signs: Vital Signs Temp 97.8 F 01/19/17 04:00 Pulse 67 01/19/17 04:00 Resp 51 H 01/19/17 04:00 BP 109/45 01/19/17 04:00 Pulse Ox 97 01/19/17 04:00 Intake & Output 01/18/17 01/19/17 01/19/17 18:59 06:59 18:59 Intake Total 1259 840 100 Output Total 775 590 65 Balance 484 250 35 Weight 129 kg Intake: IV 1259 600 100 Sodium Chloride 0.9% 1, 1259 600 100 000 ml @ 100 mls/hr IV . Q10H [facility] Rx#:[id number] Oral 240 Output: Urine 775 590 65 Other: Voiding Method Indwelling Catheter Indwelling Catheter # Bowel Movements 0 0 - Constitutional General appearance: Present: no acute distress - Respiratory Respiratory: bilateral: wheezing - Cardiovascular Rhythm: regular Heart sounds: normal: S1, S2 Abnormal Heart Sounds: Present: systolic murmur - Labs CBC & Chem 7: 01/19/17 05:00 01/19/17 05:00 Labs: Abnormal Lab Results - Last 24 Hours (Table) 01/18/17 01/18/17 01/18/17 Range/Units 11:55 12:23 21:16 WBC (3.8-10.6) k/uL RBC (3.80-5.40) m/uL Hgb (11.4-16.0) gm/dL Hct (34.0-46.0) % MCHC (31.0-37.0) g/dL RDW (11.5-15.5) % Neutrophils # (1.3-7.7) k/uL Potassium (3.5-5.1) mmol/L Chloride (98-107) mmol/L BUN (7-17) mg/dL Creatinine (0.52-1.04) mg/dL POC Glucose (mg/dL) 121 H 114 H 228 H (75-99) mg/dL 01/19/17 01/19/17 Range/Units 05:00 05:00 WBC 11.3 H (3.8-10.6) k/uL RBC 2.82 L (3.80-5.40) m/uL Hgb 8.1 L (11.4-16.0) gm/dL Hct 26.3 L (34.0-46.0) % MCHC 30.7 L (31.0-37.0) g/dL RDW 17.1 H (11.5-15.5) % Neutrophils # 9.3 H (1.3-7.7) k/uL Potassium 5.2 H (3.5-5.1) mmol/L Chloride 114 H (98-107) mmol/L BUN 53 H (7-17) mg/dL Creatinine 1.80 H (0.52-1.04) mg/dL POC Glucose (mg/dL) (75-99) mg/dL Microbiology - Last 24 Hours (Table) 01/16/17 20:00 Blood Culture Gram Stain - Preliminary Blood Blood Culture - Preliminary Gram Neg Bacilli 01/16/17 19:00 Urine Culture - Final Urine,Catheterized Escherichia coli 01/16/17 20:00 Blood Culture - Final Blood Assessment and Plan Plan: Assessment Acute renal failure Hyperkalemia Cardiac arrhythmia Change in mental status Plan Continue monitor the heart rate and rhythm Echocardiogram with Doppler Follow-up with the patient
--- NOTE | 2017-01-19 09:23 | PN ---
The patient is seen for followup for acute kidney injury, severe metabolic acidosis and hyperkalemia. She was admitted to the hospital with bradycardia, hypotension, altered mentation, severe metabolic acidosis. The patient was dialyzed. She has had just one treatment thus far. Currently urine output has improved. All labs look better. The patient is maintained on IV fluids. She has had good urine output. Serum creatinine is down to 1.8 from 8.8 mg/dL on initial admission. On examination, patient is sitting up in the bed. She is eating. Blood pressure is 109/45, heart rate 51 per minute. She is afebrile. EXAMINATION OF THE HEART: S1 and S2. EXAMINATION OF THE LUNGS: Bilateral breath sounds are heard. No crackles or wheezing. ABDOMEN: Soft, obese. Examination of the lower extremities shows chronic skin changes, wrinkling of the skin noted. No significant edema is noted. Labs show sodium 142, potassium 5.2, BUN 53, serum creatinine of 1.8. Hemoglobin 8.1 grams/dL. ASSESSMENT: 1. Acute kidney injury, most likely acute tubular necrosis, currently improving. Will discontinue the Chapin catheter. The patient does not need any further dialysis. 2. Hypotension, currently improved. Dopamine has been discontinued. Continue with the IV fluids. 3. Severe metabolic acidosis, currently improved. 4. Hyperkalemia on initial admission, status post dialysis x1, currently improved. Potassium is 5.2. Will continue to monitor. Expect improvement as renal function continued to improve. Plan is DC femoral dialysis catheter. Continue IV fluids. Repeat labs in a.m. MTDD
[2017-01-19 09:30] LABS: Prothrombin Time 10.4 sec (9.0-12.0)
[2017-01-19] MEDS ORDERED: SODIUM POLYSTYRENE SULFONATE 15 GM/60 ML BOTTLE PO STA (10:05)
--- NOTE | 2017-01-19 10:38 | P.PN ---
Subjective Patient presented to the hospital with altered mental status changes. She is found to have acute renal failure with hyperkalemia of 7.8. And significant bradycardia with a heart rate in the 30s. Patient admitted to the ICU. She underwent emergent hemodialysis. She's evaluated by cardiology and nephrology. Kidney functions are showing improvement. Creatinine is down to 1.80. Her white count is improving. Heart rate is stabilized. She's also being treated for UTI. Patient is complaining of some constipation. No bowel movement since she's been admitted to the hospital. She is passing gas. Denies any abdominal pain. She is currently a selective overflow in the ICU Objective - Vital Signs Vital signs: Vital Signs Temp 97.8 F 01/19/17 04:00 Pulse 67 01/19/17 04:00 Resp 51 H 01/19/17 04:00 BP 109/45 01/19/17 04:00 Pulse Ox 97 01/19/17 04:00 Intake & Output 01/18/17 01/19/17 01/19/17 18:59 06:59 18:59 Intake Total 1259 840 100 Output Total 775 590 65 Balance 484 250 35 Weight 129 kg Intake: IV 1259 600 100 Sodium Chloride 0.9% 1, 1259 600 100 000 ml @ 100 mls/hr IV . Q10H [facility] Rx#:[id number] Oral 240 Output: Urine 775 590 65 Other: Voiding Method Indwelling Catheter Indwelling Catheter # Bowel Movements 0 0 - Exam Head normocephalic Neck supple Lungs clear to auscultation bilaterally no wheezing or crackles Heart regular rate and rhythm S1-S2, no rub or gallop Abdomen is soft nontender nondistended positive bowel sounds no hepatosplenomegaly Extremities no edema Neuro alert and orientated to 3 - Labs CBC & Chem 7: 01/19/17 05:00 01/19/17 05:00 Labs: Abnormal Lab Results - Last 24 Hours (Table) 01/18/17 01/18/17 01/18/17 Range/Units 11:55 12:23 21:16 WBC (3.8-10.6) k/uL RBC (3.80-5.40) m/uL Hgb (11.4-16.0) gm/dL Hct (34.0-46.0) % MCHC (31.0-37.0) g/dL RDW (11.5-15.5) % Neutrophils # (1.3-7.7) k/uL Potassium (3.5-5.1) mmol/L Chloride (98-107) mmol/L BUN (7-17) mg/dL Creatinine (0.52-1.04) mg/dL POC Glucose (mg/dL) 121 H 114 H 228 H (75-99) mg/dL 01/19/17 01/19/17 Range/Units 05:00 05:00 WBC 11.3 H (3.8-10.6) k/uL RBC 2.82 L (3.80-5.40) m/uL Hgb 8.1 L (11.4-16.0) gm/dL Hct 26.3 L (34.0-46.0) % MCHC 30.7 L (31.0-37.0) g/dL RDW 17.1 H (11.5-15.5) % Neutrophils # 9.3 H (1.3-7.7) k/uL Potassium 5.2 H (3.5-5.1) mmol/L Chloride 114 H (98-107) mmol/L BUN 53 H (7-17) mg/dL Creatinine 1.80 H (0.52-1.04) mg/dL POC Glucose (mg/dL) (75-99) mg/dL Microbiology - Last 24 Hours (Table) 01/16/17 20:00 Blood Culture Gram Stain - Preliminary Blood Blood Culture - Preliminary Gram Neg Bacilli 01/16/17 19:00 Urine Culture - Final Urine,Catheterized Escherichia coli 01/16/17 20:00 Blood Culture - Final Blood Assessment and Plan Plan: 1. Acute toxo metabolic encephalopathy secondary to acute kidney injury and UTI 2. Acute kidney failure requiring emergent hemodialysis and nephrology following. Creatinine showing improvement down to 1.80. No longer requiring hemodialysis 3. Severe hyperkalemia related to acute kidney injury. improved with hemodialysis. Potassium 5.2 today. She will receive Kayexalate 15 g 1 4. Metabolic acidosis secondary to #2 5. Urinary tract infection with E. coli growing in the urine culture. Continue Rocephin 6. Significant bradycardia with junctional rhythm on presentation now heart rate improved. Patient was seen and evaluated by cardiology. Home medication is been on hold for now. 7. History of paroxysmal atrial fibrillation on anti-coagulation with Rivaroxaban and at home would hold anticoagulation for now given critical condition and continue subcu heparin 8. Bacteremia with gram-negative bacilli. Awaiting repeat blood culture. Continue with the IV Rocephin 9. Left kidney cyst noted on abdominal ultrasound. We'll do further workup outpatient with a computed tomography scan once patient can tolerate IV contrast 10. Anemia: Hemoglobin history of down to 8.1. No signs of active bleeding. This is likely dilutional due to IV fluids. Check iron studies. Decrease IV fluids to 50 mL an hour. Continue to monitor 11. Constipation: Should improve with the Kayexalate. Continue to monitor I performed an examination of the patient and discussed their management with the physician Neuropsychologist. I have reviewed the Physician Neuropsychologist's notes and agree with the documented findings and plan of care
--- NOTE | 2017-01-19 11:16 | P.PN ---
Subjective A 76-year-old female patient, morbidly obese, presented to the hospital because of altered mental status and immediately the patient was found to be in sepsis, urine checked infection and acute kidney injury. The patient was found to be in acute renal failure with hyperkalemia and she was having symptomatic bradycardia. She was admitted to the ICU. The patient was under the care of Dr. Voss. Subsequently we were involved in the case as we are covering for during this current week. The patient required dialysis in the dialysis catheter was inserted and nephrology was also involved in the case. The patient underwent only one session of dialysis and currently she is recovering. Her potassium level normalized and the renal function is improving and the patient is producing adequate amount of urine output. The mental status change was assessed by a CAT scan of the head that came back negative. The patient subsequently became much more alert and awake. Yesterday, the patient was on dopamine at 5 g per KG per minute for her underlying bradycardia. This was weaned off and gradually discontinued. This morning, the patient is in a sinus rhythm on no pressors. She is awake and alert and following commands and answering questions. She is afebrile. The leukocytosis improving. The patient 's white cell count was 20.9 dropped down to 11.3. Her initial creatinine was at 8.8 and dropped down to 1.8. Morning potassium level is at 5.2. Her blood culture came positive for gram negative bacillus. The urine culture was positive for E. coli the patient is on Rocephin 1 g every 24 hours. Hemoglobin is gradually dropping from 11.6 down to 8.1 .the chest x-ray from today shows moderate pulmonary vessel congestion and small left-sided pleural effusion and cardiomegaly. Objective - Vital Signs Vital signs: Vital Signs Temp 97.8 F 01/19/17 04:00 Pulse 67 01/19/17 04:00 Resp 51 H 01/19/17 04:00 BP 109/45 01/19/17 04:00 Pulse Ox 97 01/19/17 04:00 Intake & Output 01/18/17 01/19/17 01/19/17 18:59 06:59 18:59 Intake Total 1259 840 100 Output Total 775 590 65 Balance 484 250 35 Weight 129 kg Intake: IV 1259 600 100 Sodium Chloride 0.9% 1, 1259 600 100 000 ml @ 100 mls/hr IV . Q10H [facility] Rx#:[id number] Oral 240 Output: Urine 775 590 65 Other: Voiding Method Indwelling Catheter Indwelling Catheter # Bowel Movements 0 0 - Exam Gen. appearance the patient is calm and comfortable obese nonacute distress.Head exam was generally normal. There was no scleral icterus or corneal arcus. Mucous membranes were moist.Neck was supple and without jugular venous distension, thyromegaly, or carotid bruits. Carotids were easily palpable bilaterally. There was no adenopathy. The patient has significant crowding of the posterior pharynx. No goiter or neck masses.Cardiac exam revealed the PMI to be normally situated and sized. The rhythm was regular and no extrasystoles were noted during several minutes of auscultation. The first and second heart sounds were normal and physiologic splitting of the second heart sound was noted. There were no murmurs, rubs, clicks, or gallops. Lungs sounds are diminished in lung bases bilaterally otherwise clear. No wheezes or rhonchi any crackles. Abdomen is obese soft nontender. Organs cannot be accurately palpated. There is no direct tenderness. No rebound tensile guarding.Examination of the extremities revealed easily palpable radial, femoral and pedal pulses. There was no cyanosis, clubbing or edema. Neurologically patient is awake and following commands and answering questions appropriately. - Labs CBC & Chem 7: 01/19/17 05:00 01/19/17 05:00 Labs: Abnormal Lab Results - Last 24 Hours (Table) 01/18/17 01/18/17 01/18/17 Range/Units 11:55 12:23 21:16 WBC (3.8-10.6) k/uL RBC (3.80-5.40) m/uL Hgb (11.4-16.0) gm/dL Hct (34.0-46.0) % MCHC (31.0-37.0) g/dL RDW (11.5-15.5) % Neutrophils # (1.3-7.7) k/uL Potassium (3.5-5.1) mmol/L Chloride (98-107) mmol/L BUN (7-17) mg/dL Creatinine (0.52-1.04) mg/dL POC Glucose (mg/dL) 121 H 114 H 228 H (75-99) mg/dL 01/19/17 01/19/17 Range/Units 05:00 05:00 WBC 11.3 H (3.8-10.6) k/uL RBC 2.82 L (3.80-5.40) m/uL Hgb 8.1 L (11.4-16.0) gm/dL Hct 26.3 L (34.0-46.0) % MCHC 30.7 L (31.0-37.0) g/dL RDW 17.1 H (11.5-15.5) % Neutrophils # 9.3 H (1.3-7.7) k/uL Potassium 5.2 H (3.5-5.1) mmol/L Chloride 114 H (98-107) mmol/L BUN 53 H (7-17) mg/dL Creatinine 1.80 H (0.52-1.04) mg/dL POC Glucose (mg/dL) (75-99) mg/dL Microbiology - Last 24 Hours (Table) 01/16/17 20:00 Blood Culture Gram Stain - Preliminary Blood Blood Culture - Preliminary Gram Neg Bacilli 01/16/17 19:00 Urine Culture - Final Urine,Catheterized Escherichia coli 01/16/17 20:00 Blood Culture - Final Blood Assessment and Plan Plan: Assessment 1 E. coli septicemia/septic shock. This is likely of a urinary source knowing that E. coli is also grown in the patient's urine culture. Currently on Rocephin. Patient is recovering from the hypotension currently off pressors. 2 severe bradycardia with hypotension, due to a combination of sepsis and hyperkalemia, improved and the patient is currently off pressors and renal function is improving 3 acute kidney injury, improving and creatinine is down to 1.8 4 hyperkalemia, recovered 5 anemia, acute likely dilutional 6 chronic atrial fibrillation, maintained on a combination of amiodarone, Bystolic, and Xarelto on outpatient basis 7 COPD 8 diabetes mellitus, insulin-dependent 9 hyperlipidemia 10 hypertension, history of 11 rheumatoid arthritis 12 hypothyroidism 13 osteoarthritis 14 morbid obesity 15 history of DVT on no anticoagulants for now. 16 leukocytosis, improving Plan Continue IV fluids at 100 mL an hour of normal saline. Will hold on the Xarelto and then amiodarone and the Bystolic for today and consider starting it tomorrow as the patient recovers from the renal failure and asymptomatic bradycardia. Monitor the renal function. Monitor the hemoglobin and there is no signs of an acute bleed and as such this is considered to be dilutional. Advance diet. Increase activity. Increase the Rocephin dose to 2 g based on an underlying septicemia. The patient can be moved to [facility] with telemetry.
[2017-01-19 11:40] LABS: % Iron Saturation 7.8 % (20-50)
[2017-01-19 12:31] LABS: Glucose,Whole Blood 186 mg/dL (75-99)
[2017-01-19] MEDS: DOPamine DRIP 800 MG in DEXTROSE/WATER 1 500ML.BAG IV SCH (12:56)
--- NOTE | 2017-01-19 15:39 | CDI ---
In responding to this query, please exercise your independent professional judgment. The [facility] [place] Coding Staff and Clinical Documentation Specialists appreciate your assistance in clarifying documentation, maintaining compliance with coding guidelines, accurately documenting patients condition and capturing severity of illness. The fact that a question is asked does not imply that any particular answer is desired or expected. Communication forms are a method of clarifying documentation and are not made part of the Legal Health Record. Thank you in advance for your clarification. Last Revision, September 2016 Jose Alberto Fernandez [address] [facility] [place] [address] Documentation Clarification Form Date: 01/19/2017 3:19:00 PM From: Luis Kelsey, RN, BSN, CDI, CCDS Admit Date: 01/16/2017 4:57:00 PM Patient Name: Tamar Dominguez Visit Number: [id number] Dr. Chilo Gonzalez: "Sepsis associated with UTI and/or pyelonephritis" is documented on 01/[address] Voss "Sepsis due to Escherichia Coli, severe sepsis w/septic shock is documented by Dr. Patrick on 01/19. "UTI, bacteremia w/gram-negative" is documented in your last progress note dated 01/18. History/Risk Factors: 76 yo female with a history of Afib, COPD, DM and HTN presents with c/o feeling fatigued and drowsy. Clinical Indicators: WBC: 20.9 Lactic acid: 1.4 Urine culture: E.Coli Blood cultures: Gram negative bacilli Vitals signs on admission: 68/42, 30, 18, 96.5 Other Clinical Indicators: BUN: 191, Cr: 8.8, UA (on admission): turbid, large leuk esterase, WBC >182, many WBC clumps, many bacteria, many budding yeast Treatment: Rocephin, emergent dialysis, 1L fluid bolus, IVF @ 100cc/hr, ICU, Dopamine gtt, ultrasound of the kidneys, repeat blood cultures, central line Consults: nephrology, pulmonary/critical care, cardiology In your professional opinion, please clarify if these findings signify one of the following conditions, whether the condition is POA, and cause, if known: SIRS, without underlying infectious process Sepsis (POA) Severe Sepsis Septic Shock Sepsis, ruled out Unable to determine Other, please specify Present on Admission: Yes No SIRS Criteria: 2 or more of the following may indicate SIRS Temperature < 96.8F(36C) or > 101.0F (38C) Heart Rate > 90 bpm Respiratory Rate > 20 breaths/min or PaCO2 < 32 mmHg White Blood Cell Count > 12,000 or < 4,000 cells/mm3 or > 10% bands Lactate >2.0 mmol/L (>4.0 is equivalent to septic shock) Please document in your progress notes and discharge summary in order to capture severity of illness and risk of mortality. Include clinical findings that support your diagnosis. FYI: Press F11 to launch patient chart. BRENDON
[2017-01-19 16:54] LABS: Glucose,Whole Blood 101 mg/dL (75-99)
[2017-01-19 20:10] LABS: Glucose,Whole Blood 138 mg/dL (75-99)
[2017-01-20] MEDS: LEVOTHYROXINE 75 MCG TAB PO SCH (07:02)
[2017-01-20 07:35] LABS: Glucose,Whole Blood 92 mg/dL (75-99)
[2017-01-20 07:57] LABS: Anisocytosis Slight; Basophils % (A) 0 %; CH 28.6; CHCM 30.7; Eosinophils # (A) 0.2 k/uL (0-0.7); Eosinophils % (A) 2 %; HCT 25.8 % (34.0-46.0); HDW 2.77; Hypochromasia Moderate; Luc # (Auto) 0.22; Luc % (Auto) 2; Lymphocytes # (A) 1.4 k/uL (1.0-4.8); Lymphocytes % (A) 15 %; MCH 29.2 pg (25.0-35.0); MCHC 31.1 g/dL (31.0-37.0); MCV 93.8 fL (80.0-100.0); Mean Platelet Volume 8.5; Monocytes # (A) 0.4 k/uL (0-1.0); Monocytes % (A) 5 %; Neutrophils # (A) 7.5 k/uL (1.3-7.7); Neutrophils % (A) 77 %; RBC 2.75 m/uL (3.80-5.40); RDW 16.4 % (11.5-15.5); WBC 9.7 k/uL (3.8-10.6); WBC (Perox) 10.53
[2017-01-20] MEDS: ATORVASTATIN 40 MG TAB PO SCH (08:08)
[2017-01-20] MEDS: HEPARIN SODIUM,PORCINE 5,000 UNIT/ML 1 ML VIAL SQ SCH (08:08)
[2017-01-20] MEDS: PANTOPRAZOLE 40 MG TABLET PO SCH (08:08)
[2017-01-20] MEDS: INSULIN LISPRO (humaLOG) 300 UNIT/3 ML VIAL SQ SCH ×4 (08:08→21:31)
[2017-01-20 08:23] LABS: Calcium 8.6 mg/dL (8.4-10.2); Potassium 5.1 mmol/L (3.5-5.1); Total Bilirubin 0.3 mg/dL (0.2-1.3); Total Protein 5.4 g/dL (6.3-8.2)
[2017-01-20] MEDS: cefTRIAXone 2,000 MG in SODIUM CHLORIDE 0.9% 100 ML IVPB SCH (08:34)
[2017-01-20 09:03] VITALS: BMI 47.3
[2017-01-20] MEDS ORDERED: SODIUM POLYSTYRENE SULFONATE 15 GM/60 ML BOTTLE PO ONE (09:38)
[2017-01-20] MEDS ORDERED: FUROSEMIDE 10 MG/ML 4 ML VIAL IV STA (10:08)
--- NOTE | 2017-01-20 10:21 | PN ---
The patient is seen for follow-up for acute kidney injury, severe hyperkalemia and hypotension. This has resolved. She had one treatment of hemodialysis and her femoral catheter has been discontinued. Femoral dialysis catheter has been discontinued. The patient is maintained on IV fluids. On examination, she is comfortable. She appears to be mildly short of breath, not in any acute distress. Blood pressure is 126/58. Heart rate is 53 per minute. She is afebrile. Examination of the heart, S1, S2. Examination of the lungs bilateral breath sounds are heard. Abdomen is soft, nontender. Examination of the lower extremities shows chronic skin changes with dry skin noted. CABLE LAYER exam shows the patient is moving all four extremities. Labs shows sodium 141, potassium 5.1, BUN 35, serum creatinine 1.43. ASSESSMENT: 1. Acute kidney injury, prerenal currently resolved. 2. Severe hyperkalemia on admission associated with acute kidney injury, currently resolved. 3. Anemia with no active bleeding noted. Check stool for occult blood. 4. Altered mentation secondary to advanced renal failure which has improved now. 5. Bacteremia with blood cultures and urine culture growing E. coli. 6. E. coli urinary tract infection. PLAN: Continue antibiotics. Encourage increased oral intake. Repeat labs in a.m. No nephrotoxic agents on board at this time. I will give her a dose of Lasix today. MTDD
[2017-01-20] MEDS: AMIODARONE 200 MG TAB PO SCH (10:45)
--- NOTE | 2017-01-20 10:51 | P.PN ---
Subjective This is a 76-year-old female who presented to the emergency department with change in mental status. She was found to be severely bradycardic with a heart rate in the 30s, hyperkalemia and acute renal failure. Her EKG showed junctional rhythm with peaked T waves. Emergent dialysis was performed. Patient is being seen today in follow-up. Hemoglobin 8.0, potassium 5.1, UN 35, creatinine 1.43, blood pressure 126/58, heart rate 53. Creatinine is improving as well as potassium. She denies chest pain, shortness of breath or palpitations. Objective - Vital Signs Vital signs: Vital Signs Temp 98.5 F 01/20/17 07:00 Pulse 53 L 01/20/17 07:00 Resp 18 01/20/17 07:00 BP 126/58 01/20/17 07:00 Pulse Ox 100 01/20/17 07:00 Intake & Output 01/19/17 01/20/17 01/20/17 18:59 06:59 18:59 Intake Total 100 350 Output Total 65 Balance 35 350 Weight 129 kg Intake: IV 100 Sodium Chloride 0.9% 1, 100 000 ml @ 50 mls/hr IV . Q20H [facility] Rx#:[id number] Oral 350 Output: Urine 65 Other: Voiding Method Indwelling Catheter Bedside Commode Bedside Commode # Voids 1 3 - Exam GENERAL: No acute distress. NECK: Supple without JVD or thyromegaly. LUNGS: Breath sounds basilar rales. No wheezes or rhonchi. HEART: Regular rate and rhythm with ejection systolic murmur, rubs or gallops. S1 and S2 heard. - Labs CBC & Chem 7: 01/20/17 07:37 01/20/17 07:37 Labs: Abnormal Lab Results - Last 24 Hours (Table) 01/19/17 01/19/17 01/19/17 Range/Units 05:00 12:14 16:50 RBC (3.80-5.40) m/uL Hgb (11.4-16.0) gm/dL Hct (34.0-46.0) % RDW (11.5-15.5) % Chloride (98-107) mmol/L BUN (7-17) mg/dL Creatinine (0.52-1.04) mg/dL POC Glucose (mg/dL) 186 H 101 H (75-99) mg/dL Iron 21 L (37-170) ug/dL % Saturation 7.8 L (20-50) % Total Protein (6.3-8.2) g/dL Albumin (3.5-5.0) g/dL 01/19/17 01/20/17 01/20/17 Range/Units 20:06 07:37 07:37 RBC 2.75 L (3.80-5.40) m/uL Hgb 8.0 L (11.4-16.0) gm/dL Hct 25.8 L (34.0-46.0) % RDW 16.4 H (11.5-15.5) % Chloride 114 H (98-107) mmol/L BUN 35 H (7-17) mg/dL Creatinine 1.43 H (0.52-1.04) mg/dL POC Glucose (mg/dL) 138 H (75-99) mg/dL Iron (37-170) ug/dL % Saturation (20-50) % Total Protein 5.4 L (6.3-8.2) g/dL Albumin 3.0 L (3.5-5.0) g/dL Microbiology - Last 24 Hours (Table) 01/16/17 20:00 Blood Culture Gram Stain - Final Blood Blood Culture - Final Escherichia coli 01/18/17 17:51 Blood Culture - Preliminary Blood No Growth after 24 hours Assessment and Plan Plan: ASSESSMENT 1. Acute renal failure 2. Hyperkalemia 3. Cardiac arrhythmia 4. Change in mental status. PLAN We will obtain an echocardiogram with Doppler. Resume amiodarone at a decreased dose 200 mg by mouth daily, Xarelto 15 mg by mouth daily and we will add one dose of Kayexalate now. We will continue to follow the patient. Nurse Practitioner note has been reviewed, I agree with a documented findings and plan of care. Patient was seen and examined.
--- NOTE | 2017-01-20 11:33 | CDI ---
In responding to this query, please exercise your independent professional judgment. The [facility] Coding Staff and Clinical Documentation Specialists appreciate your assistance in clarifying documentation, maintaining compliance with coding guidelines, accurately documenting patients condition and capturing severity of illness. The fact that a question is asked does not imply that any particular answer is desired or expected. Communication forms are a method of clarifying documentation and are not made part of the Legal Health Record. Thank you in advance for your clarification. Last Revision, September 2016 Jose Alberto Fernandez [address] [facility] [place] [address] Documentation Clarification Form Date: 01/19/2017 3:19:00 PM From: Luis Kelsey, RN, BSN, CDI, CCDS Admit Date: 01/16/2017 4:57:00 PM Patient Name: Tamar Dominguez Visit Number: [id number] Dr. Chilo Gonzalez: "Sepsis associated with UTI and/or pyelonephritis" is documented on 01/[address] Voss "Sepsis due to Escherichia Coli, severe sepsis w/septic shock is documented by Dr. Patrick on 01/19. "UTI, bacteremia w/gram-negative" is documented in your last progress note dated 01/18. History/Risk Factors: 76 yo female with a history of Afib, COPD, DM and HTN presents with c/o feeling fatigued and drowsy. Clinical Indicators: WBC: 20.9 Lactic acid: 1.4 Urine culture: E.Coli Blood cultures: Gram negative bacilli Vitals signs on admission: 68/42, 30, 18, 96.5 Other Clinical Indicators: BUN: 191, Cr: 8.8, UA (on admission): turbid, large leuk esterase, WBC >182, many WBC clumps, many bacteria, many budding yeast Treatment: Rocephin, emergent dialysis, 1L fluid bolus, IVF @ 100cc/hr, ICU, Dopamine gtt, ultrasound of the kidneys, repeat blood cultures, central line Consults: nephrology, pulmonary/critical care, cardiology In your professional opinion, please clarify if these findings signify one of the following conditions, whether the condition is POA, and cause, if known: Sepsis (POA) Severe Sepsis Septic Shock Sepsis, ruled out SIRS, without underlying infectious process Unable to determine Other, please specify Present on Admission: Yes No * Identify the (suspected) organism * Link or clarify if there is associated (due to/with): - Organ failure - Shock SIRS Criteria: 2 or more of the following may indicate SIRS Temperature < 96.8F(36C) or > 101.0F (38C) Heart Rate > 90 bpm Respiratory Rate > 20 breaths/min or PaCO2 < 32 mmHg White Blood Cell Count > 12,000 or < 4,000 cells/mm3 or > 10% bands Lactate >2.0 mmol/L (>4.0 is equivalent to septic shock) Please document in your progress notes and discharge summary in order to capture severity of illness and risk of mortality. Include clinical findings that support your diagnosis. FYI: Press F11 to launch patient chart. BRENDON
[2017-01-20 11:57] LABS: Glucose,Whole Blood 111 mg/dL (75-99)
--- NOTE | 2017-01-20 12:13 | P.PN ---
Subjective No events overnight Objective - Vital Signs Vital signs: Vital Signs Temp 98.5 F 01/20/17 07:00 Pulse 53 L 01/20/17 07:00 Resp 18 01/20/17 07:00 BP 126/58 01/20/17 07:00 Pulse Ox 100 01/20/17 07:00 Intake & Output 01/19/17 01/20/17 01/20/17 18:59 06:59 18:59 Intake Total 100 350 Output Total 65 Balance 35 350 Weight 129 kg Intake: IV 100 Sodium Chloride 0.9% 1, 100 000 ml @ 50 mls/hr IV . Q20H [facility] Rx#:[id number] Oral 350 Output: Urine 65 Other: Voiding Method Indwelling Catheter Bedside Commode Bedside Commode # Voids 1 3 - Exam General: The patient is awake and alert, in no distress Eye: there is normal conjunctiva bilaterally. Neck: The neck is supple, there is no JVD. Cardiovascular: Normal S1-S2, no S3-S4, no murmurs. Respiratory: Lungs clear to auscultation bilaterally Gastrointestinal: Abdomen is soft, nontender Musculoskeletal: There is no pedal edema. Neurological:. Speech is normal. Skin: Skin is warm and dry - Labs CBC & Chem 7: 01/20/17 07:37 01/20/17 07:37 Labs: Abnormal Lab Results - Last 24 Hours (Table) 01/19/17 01/19/17 01/19/17 Range/Units 12:14 16:50 20:06 RBC (3.80-5.40) m/uL Hgb (11.4-16.0) gm/dL Hct (34.0-46.0) % RDW (11.5-15.5) % Chloride (98-107) mmol/L BUN (7-17) mg/dL Creatinine (0.52-1.04) mg/dL POC Glucose (mg/dL) 186 H 101 H 138 H (75-99) mg/dL Total Protein (6.3-8.2) g/dL Albumin (3.5-5.0) g/dL 01/20/17 01/20/17 01/20/17 Range/Units 07:37 07:37 11:41 RBC 2.75 L (3.80-5.40) m/uL Hgb 8.0 L (11.4-16.0) gm/dL Hct 25.8 L (34.0-46.0) % RDW 16.4 H (11.5-15.5) % Chloride 114 H (98-107) mmol/L BUN 35 H (7-17) mg/dL Creatinine 1.43 H (0.52-1.04) mg/dL POC Glucose (mg/dL) 111 H (75-99) mg/dL Total Protein 5.4 L (6.3-8.2) g/dL Albumin 3.0 L (3.5-5.0) g/dL Microbiology - Last 24 Hours (Table) 01/16/17 20:00 Blood Culture Gram Stain - Final Blood Blood Culture - Final Escherichia coli 01/18/17 17:51 Blood Culture - Preliminary Blood No Growth after 24 hours Assessment and Plan Plan: 1. Acute toxo metabolic encephalopathy, resolved 2. Acute kidney failure requiring emergent hemodialysis: Kidney function improving off dialysis. Good urine output. 3. Severe hyperkalemia improved with hemodialysis 4. Metabolic acidosis secondary to #2 5. Urinary tract infection with cultures growing and susceptible E. coli 6. Significant bradycardia with junctional rhythm on presentation now heart rate improved. Patient was seen and evaluated by cardiology. Home medication is been on hold for now. 7. History of paroxysmal atrial fibrillation on anti-coagulation with Rivaroxaban and at home would hold anticoagulation for now and continue subcu heparin 8. Bacteremia with past susceptible E. coli may finish antibiotic course with oral antibiotic 9. Severe Sepsis on presentation resolved with IV fluid resuscitation and antibiotic Today, I reviewed her medication list the lab work results. Continue current regimen for now. Appreciate jewelry consultant's recommendations. Repeat lab work in the morning. PTOT evaluation. Consult social work/case management for placement at [facility].
--- NOTE | 2017-01-20 12:16 | P.PN ---
Subjective A 76-year-old female patient, morbidly obese, presented to the hospital because of altered mental status and immediately the patient was found to be in sepsis, urine checked infection and acute kidney injury. The patient was found to be in acute renal failure with hyperkalemia and she was having symptomatic bradycardia. She was admitted to the ICU. The patient was under the care of Dr. Voss. Subsequently we were involved in the case as we are covering for during this current week. The patient required dialysis in the dialysis catheter was inserted and nephrology was also involved in the case. The patient underwent only one session of dialysis and currently she is recovering. Her potassium level normalized and the renal function is improving and the patient is producing adequate amount of urine output. The mental status change was assessed by a CAT scan of the head that came back negative. The patient subsequently became much more alert and awake. Yesterday, the patient was on dopamine at 5 g per KG per minute for her underlying bradycardia. This was weaned off and gradually discontinued. This morning, the patient is in a sinus rhythm on no pressors. She is awake and alert and following commands and answering questions. She is afebrile. The leukocytosis improving. The patient 's white cell count was 20.9 dropped down to 11.3. Her initial creatinine was at 8.8 and dropped down to 1.8. Morning potassium level is at 5.2. Her blood culture came positive for gram negative bacillus. The urine culture was positive for E. coli the patient is on Rocephin 1 g every 24 hours. Hemoglobin is gradually dropping from 11.6 down to 8.1 .the chest x-ray from today shows moderate pulmonary vessel congestion and small left-sided pleural effusion and cardiomegaly. The patient was seen again today 01/20/2017 in follow-up on the regular medical floor. Her heart rate has improved. She is off dopamine. She remains in sinus rhythm. She is currently awake and alert in no acute distress. He is being treated for her E. coli bacteremia and urinary tract infection. He is no leukocytosis. Hemoglobin 8.0. Creatinine 1.43. Presently afebrile. Hemodynamically stable. Maintaining O2 saturations up to 100% on 3 L. Her Xarelto and amiodarone were resumed. She remains on ceftriaxone. Objective - Vital Signs Vital signs: Vital Signs Temp 98.5 F 01/20/17 07:00 Pulse 53 L 01/20/17 07:00 Resp 18 01/20/17 07:00 BP 126/58 01/20/17 07:00 Pulse Ox 100 01/20/17 07:00 Intake & Output 01/19/17 01/20/17 01/20/17 18:59 06:59 18:59 Intake Total 100 350 Output Total 65 Balance 35 350 Weight 129 kg Intake: IV 100 Sodium Chloride 0.9% 1, 100 000 ml @ 50 mls/hr IV . Q[facility]H [facility] Rx#:[id number] Oral 350 Output: Urine 65 Other: Voiding Method Indwelling Catheter Bedside Commode Bedside Commode # Voids 1 3 - Exam Gen. appearance the patient is calm and comfortable obese nonacute distress.Head exam was generally normal. There was no scleral icterus or corneal arcus. Mucous membranes were moist.Neck was supple and without jugular venous distension, thyromegaly, or carotid bruits. Carotids were easily palpable bilaterally. There was no adenopathy. The patient has significant crowding of the posterior pharynx. No goiter or neck masses.Cardiac exam revealed the PMI to be normally situated and sized. The rhythm was regular and no extrasystoles were noted during several minutes of auscultation. The first and second heart sounds were normal and physiologic splitting of the second heart sound was noted. There were no murmurs, rubs, clicks, or gallops. Lungs sounds are diminished in lung bases bilaterally otherwise clear. No wheezes or rhonchi any crackles. Abdomen is obese soft nontender. Organs cannot be accurately palpated. There is no direct tenderness. No rebound tensile guarding.Examination of the extremities revealed easily palpable radial, femoral and pedal pulses. There was no cyanosis, clubbing or edema. Neurologically patient is awake and following commands and answering questions appropriately. - Labs CBC & Chem 7: 01/20/17 07:37 01/20/17 07:37 Labs: Abnormal Lab Results - Last 24 Hours (Table) 01/19/17 01/19/17 01/19/17 Range/Units 12:14 16:50 20:06 RBC (3.80-5.40) m/uL Hgb (11.4-16.0) gm/dL Hct (34.0-46.0) % RDW (11.5-15.5) % Chloride (98-107) mmol/L BUN (7-17) mg/dL Creatinine (0.52-1.04) mg/dL POC Glucose (mg/dL) 186 H 101 H 138 H (75-99) mg/dL Total Protein (6.3-8.2) g/dL Albumin (3.5-5.0) g/dL 01/20/17 01/20/17 01/20/17 Range/Units 07:37 07:37 11:41 RBC 2.75 L (3.80-5.40) m/uL Hgb 8.0 L (11.4-16.0) gm/dL Hct 25.8 L (34.0-46.0) % RDW 16.4 H (11.5-15.5) % Chloride 114 H (98-107) mmol/L BUN 35 H (7-17) mg/dL Creatinine 1.43 H (0.52-1.04) mg/dL POC Glucose (mg/dL) 111 H (75-99) mg/dL Total Protein 5.4 L (6.3-8.2) g/dL Albumin 3.0 L (3.5-5.0) g/dL Microbiology - Last 24 Hours (Table) 01/16/17 20:00 Blood Culture Gram Stain - Final Blood Blood Culture - Final Escherichia coli 01/18/17 17:51 Blood Culture - Preliminary Blood No Growth after 24 hours Assessment and Plan Plan: Assessment 1 E. coli septicemia/septic shock. This is likely of a urinary source knowing that E. coli is also grown in the patient's urine culture. Currently on Rocephin. Patient is recovering from the hypotension currently off pressors. 2 severe bradycardia with hypotension, due to a combination of sepsis and hyperkalemia, improved and the patient is currently off pressors and renal function is improving 3 acute kidney injury, improving and creatinine is down to 1.43 4 hyperkalemia, recovered 5 anemia, acute likely dilutional him a current hemoglobin 8.0. 6 chronic atrial fibrillation, maintained on a combination of amiodarone, Bystolic, and Xarelto on outpatient basis, resumed today. 7 COPD 8 diabetes mellitus, insulin-dependent 9 hyperlipidemia 10 hypertension, history of 11 rheumatoid arthritis 12 hypothyroidism 13 osteoarthritis 14 morbid obesity 15 history of DVT on Xarelto 16 leukocytosis, recovered Plan: The patient was seen and evaluated by Dr. Patrick. She is stable from the pulmonary and critical care standpoint. She does continue to improve daily. We will continue with her current medications. We will increase her activity as tolerated. We'll continue to follow.
[2017-01-20 17:45] LABS: Glucose,Whole Blood 90 mg/dL (75-99)
[2017-01-20] MEDS: RIVAROXABAN 15 MG TAB PO SCH (18:23)
[2017-01-20 20:33] LABS: Glucose,Whole Blood 117 mg/dL (75-99)
[2017-01-20] MEDS ORDERED: AMIODARONE 200 MG TAB PO SCH (21:00)
[2017-01-21] MEDS: LEVOTHYROXINE 75 MCG TAB PO SCH (06:04)
[2017-01-21 07:39] LABS: Glucose,Whole Blood 97 mg/dL (75-99)
[2017-01-21] MEDS: INSULIN LISPRO (humaLOG) 300 UNIT/3 ML VIAL SQ SCH ×4 (08:50→20:52)
[2017-01-21] MEDS: ASPIRIN 81 MG CHEW PO SCH (08:53)
[2017-01-21] MEDS: PANTOPRAZOLE 40 MG TABLET PO SCH (08:53)
[2017-01-21] MEDS: ALLOPURINOL 300 MG TAB PO SCH (08:53)
[2017-01-21] MEDS: AMIODARONE 200 MG TAB PO SCH (08:53)
[2017-01-21] MEDS: NEBIVOLOL 5 MG TAB PO SCH (08:54)
[2017-01-21] MEDS: ATORVASTATIN 40 MG TAB PO SCH (08:54)
[2017-01-21 08:57] LABS: Calcium 8.7 mg/dL (8.4-10.2); Potassium 5.4 mmol/L (3.5-5.1)
[2017-01-21] MEDS ORDERED: RIVAROXABAN 15 MG TAB PO SCH (09:00)
[2017-01-21] MEDS: cefTRIAXone 2,000 MG in SODIUM CHLORIDE 0.9% 100 ML IVPB SCH (10:06)
[2017-01-21] MEDS ORDERED: SODIUM POLYSTYRENE SULFONATE 15 GM/60 ML BOTTLE PO STA (10:41)
--- NOTE | 2017-01-21 11:41 | ECHOF ---
Referral Reason:assess LV function MEASUREMENTS -------- HEIGHT: 165.1 cm WEIGHT: 128.8 kg BP: 126/58 RVIDd: 2.8 cm (< 3.3) IVSd: 0.9 cm (0.6 - 1.1) LVIDd: 5.6 cm (3.9 - 5.3) LVPWd: 0.9 cm (0.6 - 1.1) IVSs: 1.4 cm LVIDs: 3.2 cm LVPWs: 1.4 cm LAESV Index (A-L): 42.34 ml/m MV E Marty: 1.61 m/s MV DecT: 339 ms MV A Marty: 1.25 m/s MV E/A Ratio: 1.28 AV maxP.87 mmHg AV meanP.80 mmHg RAP: 15.00 mmHg RVSP: 45.15 mmHg FINDINGS -------- Sinus rhythm. This was a technically difficult study with suboptimal views. Pt. not compliant. The left ventricle is mildly dilated. Overall left ventricular systolic function is normal with, an EF between 60 - 65 %. Possible l vot Obstruction. The right ventricle is normal in size and function. LA is severely dilated >40 ml/m2 The right atrium is normal in size. 1.5mg of Definity was utilized for enhancement of images Aortic valve is trileaflet and is moderately thickened. There is no evidence of aortic regurgitation. There is no evidence of aortic stenosis. The mitral valve leaflets are mild to moderately thickened. Moderate mitral annular calcification present. Mild mitral regurgitation is present. [id number] mitral stenosis. Mild tricuspid regurgitation present. There is borderline pulmonary hypertension. The right ventricular systolic pressure, as measured by Doppler, is 45.15mmHg. The pulmonic valve was not well visualized. The aortic root size is normal. The inferior vena cava is dilated with poor inspiratory collapse which is consistent with estimated right atrial pressure of 20 mmHg. The pericardium is normal. There is no pericardial effusion. CONCLUSIONS -------- 1. Sinus rhythm. 2. The mitral valve leaflets are mild to moderately thickened. 3. Moderate mitral annular calcification present. 4. Mild mitral regurgitation is present. 5. Mhwr-dc-[id number] mitral stenosis. 6. Mild tricuspid regurgitation present. 7. There is borderline pulmonary hypertension. 8. The right ventricular systolic pressure, as measured by Doppler, is 45.15mmHg. 9. The pulmonic valve was not well visualized. 10. The aortic root size is normal. 11. The inferior vena cava is dilated with poor inspiratory collapse which is consistent with estimated right atrial pressure of 20 mmHg. 12. This was a technically difficult study with suboptimal views. 13. There is no pericardial effusion. 14. Pt. not compliant. 15. The left ventricle is mildly dilated. 16. Overall left ventricular systolic function is normal with, an EF between 60 - 65 %. 17. Possible lvot obstruction. 18. LA is severely dilated >40 ml/m2 19. 1.5mg of Definity was utilized for enhancement of images 20. Aortic valve is trileaflet and is moderately thickened. INJECTION MOLDING MACHINE OPERATOR: Macario Mcfadden RDCS
[2017-01-21 11:57] LABS: Glucose,Whole Blood 188 mg/dL (75-99)
--- NOTE | 2017-01-21 12:13 | P.PN ---
Subjective no events overnight Objective - Vital Signs Vital signs: Vital Signs Temp 99.3 F 01/21/17 07:00 Pulse 70 01/21/17 07:00 Resp 18 01/21/17 07:00 BP 136/64 01/21/17 07:00 Pulse Ox 97 01/21/17 07:00 Intake & Output 01/20/17 01/21/17 01/21/17 18:59 06:59 18:59 Intake Total 1040 Output Total 65 Balance 975 Weight 129 kg 129.2 kg Intake: IV 650 Sodium Chloride 0.9% 1, 650 000 ml @ 50 mls/hr IV . Q20H [facility] Rx#:[id number] Oral 390 Output: Urine 65 Other: Voiding Method Bedside Commode Bedside Commode # Voids 6 2 2 # Bowel Movements 2 2 1 - Exam General: The patient is awake and alert, in no distress Eye: there is normal conjunctiva bilaterally. Neck: The neck is supple, there is no JVD. Cardiovascular: Normal S1-S2, no S3-S4, no murmurs. Respiratory: Lungs clear to auscultation bilaterally Gastrointestinal: Abdomen is soft, nontender Musculoskeletal: There is no pedal edema. Neurological:. Speech is normal. Skin: Skin is warm and dry - Labs CBC & Chem 7: 01/20/17 07:37 01/21/17 07:36 Labs: Abnormal Lab Results - Last 24 Hours (Table) 01/20/17 01/21/17 01/21/17 Range/Units 20:31 07:36 11:56 Potassium 5.4 H (3.5-5.1) mmol/L Chloride 113 H (98-107) mmol/L BUN 29 H (7-17) mg/dL Creatinine 1.22 H (0.52-1.04) mg/dL POC Glucose (mg/dL) 117 H 188 H (75-99) mg/dL Microbiology - Last 24 Hours (Table) 01/18/17 17:51 Blood Culture - Preliminary Blood No Growth after 48 hours Assessment and Plan Plan: 1. Acute toxo metabolic encephalopathy, resolved 2. Acute kidney failure requiring emergent hemodialysis: Kidney function improving off dialysis. Good urine output. creatinine almost back to normal range 3. Severe hyperkalemia on presentation, improved with hemodialysis 4. Metabolic acidosis secondary to #2 5. Urinary tract infection with cultures growing and susceptible E. coli 6. Significant bradycardia with junctional rhythm on presentation now heart rate improved. Patient was seen and evaluated by cardiology. Home medication resumed 7. History of paroxysmal atrial fibrillation on anti-coagulation with Rivaroxaban at home 8. Bacteremia with past susceptible E. coli may finish antibiotic course with oral antibiotic 9. Severe Sepsis on presentation resolved with IV fluid resuscitation and antibiotic Today, I reviewed her medication list the lab work results. Continue current regimen for now. Appreciate business transformation consultant's recommendations. Repeat lab work in the morning. PTOT evaluation. plan for discharge tomorrow to [facility].
--- NOTE | 2017-01-21 15:02 | P.PN ---
Subjective This is a 76-year-old female who presented to the emergency department with change in mental status. She was found to be severely bradycardic with a heart rate in the 30s, hyperkalemia and acute renal failure. Her EKG showed junctional rhythm with peaked T waves. Emergent dialysis was performed. Upon examination today she is seen sitting up on the commode. She denies chest pain, shortness of breath, dizziness or palpitations. Potassium today is 5.4, BUN 29, creatinine 1.2, heart rate 70, blood pressure 136/64. Echocardiogram performed yesterday reveals moderate mitral regurgitation, mild to moderate mitral stenosis, mild tricuspid regurgitation, borderline pulmonary hypertension with a right ventricular systolic pressure 45.15 mmHg, left ventricle mildly dilated, left ventricular systolic function preserved with an ejection fraction of 60-65%, left atrium severely dilated greater than 40 and aortic valve is moderately thickened. Objective - Vital Signs Vital signs: Vital Signs Temp 99.3 F 01/21/17 07:00 Pulse 70 01/21/17 07:00 Resp 18 01/21/17 07:00 BP 136/64 01/21/17 07:00 Pulse Ox 97 01/21/17 07:00 Intake & Output 01/20/17 01/21/17 01/21/17 18:59 06:59 18:59 Intake Total 1040 Output Total 65 Balance 975 Weight 129 kg 129.2 kg Intake: IV 650 Sodium Chloride 0.9% 1, 650 000 ml @ 50 mls/hr IV . Q20H [facility] Rx#:[id number] Oral 390 Output: Urine 65 Other: Voiding Method Bedside Commode Bedside Commode # Voids 6 2 2 # Bowel Movements 2 2 1 - Exam GENERAL: Well-appearing, well-nourished and in no acute distress. NECK: Supple without JVD or thyromegaly. LUNGS: Breath sounds diminished bilateral bases, clear to auscultation bilaterally and equal. No wheezes, rales or rhonchi. HEART: Regular rate and rhythm with ejection systolic murmur, no rubs or gallops. S1 and S2 heard. ABDOMEN: Soft, nontender, normoactive bowel sounds. - Labs CBC & Chem 7: 01/20/17 07:37 01/21/17 07:36 Labs: Abnormal Lab Results - Last 24 Hours (Table) 01/20/17 01/21/17 01/21/17 Range/Units 20:31 07:36 11:56 Potassium 5.4 H (3.5-5.1) mmol/L Chloride 113 H (98-107) mmol/L BUN 29 H (7-17) mg/dL Creatinine 1.22 H (0.52-1.04) mg/dL POC Glucose (mg/dL) 117 H 188 H (75-99) mg/dL Microbiology - Last 24 Hours (Table) 01/18/17 17:51 Blood Culture - Preliminary Blood No Growth after 48 hours Assessment and Plan Plan: ASSESSMENT 1. Acute renal failure 2. Hyperkalemia 3. Cardiac arrhythmia 4. Change in mental status. PLAN Kayexalate 30 g now times one. Continue with current medications as ordered. Nurse Practitioner note has been reviewed, I agree with a documented findings and plan of care. Patient was seen and examined.
--- NOTE | 2017-01-21 15:25 | P.PN ---
Subjective A 76-year-old female patient, morbidly obese, presented to the hospital because of altered mental status and immediately the patient was found to be in sepsis, urine checked infection and acute kidney injury. The patient was found to be in acute renal failure with hyperkalemia and she was having symptomatic bradycardia. She was admitted to the ICU. The patient was under the care of Dr. Voss. Subsequently we were involved in the case as we are covering for during this current week. The patient required dialysis in the dialysis catheter was inserted and nephrology was also involved in the case. The patient underwent only one session of dialysis and currently she is recovering. Her potassium level normalized and the renal function is improving and the patient is producing adequate amount of urine output. The mental status change was assessed by a CAT scan of the head that came back negative. The patient subsequently became much more alert and awake. Yesterday, the patient was on dopamine at 5 g per KG per minute for her underlying bradycardia. This was weaned off and gradually discontinued. This morning, the patient is in a sinus rhythm on no pressors. She is awake and alert and following commands and answering questions. She is afebrile. The leukocytosis improving. The patient 's white cell count was 20.9 dropped down to 11.3. Her initial creatinine was at 8.8 and dropped down to 1.8. Morning potassium level is at 5.2. Her blood culture came positive for gram negative bacillus. The urine culture was positive for E. coli the patient is on Rocephin 1 g every 24 hours. Hemoglobin is gradually dropping from 11.6 down to 8.1 .the chest x-ray from today shows moderate pulmonary vessel congestion and small left-sided pleural effusion and cardiomegaly. The patient was seen again today 01/20/2017 in follow-up on the regular medical floor. Her heart rate has improved. She is off dopamine. She remains in sinus rhythm. She is currently awake and alert in no acute distress. He is being treated for her E. coli bacteremia and urinary tract infection. He is no leukocytosis. Hemoglobin 8.0. Creatinine 1.43. Presently afebrile. Hemodynamically stable. Maintaining O2 saturations up to 100% on 3 L. Her Xarelto and amiodarone were resumed. She remains on ceftriaxone. The patient was seen again today 01/21/2017 in follow-up on the regular medical floor. She remains awake and alert in no acute distress. Her creatinine is improving currently 1.22. He remains on ceftriaxone for her E. coli found in both her blood and urine. She is maintaining good O2 saturations in the 90s on 3 L/m per nasal cannula. Currently afebrile. Hemodynamically stable. Objective - Vital Signs Vital signs: Vital Signs Temp 97.5 F L 01/21/17 14:57 Pulse 63 01/21/17 14:57 Resp 18 01/21/17 14:57 BP 124/59 01/21/17 14:57 Pulse Ox 92 L 01/21/17 14:57 Intake & Output 01/20/17 01/21/17 01/21/17 18:59 06:59 18:59 Intake Total 1040 Output Total 65 Balance 975 Weight 129 kg 129.2 kg Intake: IV 650 Sodium Chloride 0.9% 1, 650 000 ml @ 50 mls/hr IV . Q20H [facility] Rx#:[id number] Oral 390 Output: Urine 65 Other: Voiding Method Bedside Commode Bedside Commode Bedside Commode # Voids 6 2 1 # Bowel Movements 2 2 1 - Exam Gen. appearance the patient is calm and comfortable obese nonacute distress.Head exam was generally normal. There was no scleral icterus or corneal arcus. Mucous membranes were moist.Neck was supple and without jugular venous distension, thyromegaly, or carotid bruits. Carotids were easily palpable bilaterally. There was no adenopathy. The patient has significant crowding of the posterior pharynx. No goiter or neck masses.Cardiac exam revealed the PMI to be normally situated and sized. The rhythm was regular and no extrasystoles were noted during several minutes of auscultation. The first and second heart sounds were normal and physiologic splitting of the second heart sound was noted. There were no murmurs, rubs, clicks, or gallops. Lungs sounds are diminished in lung bases bilaterally otherwise clear. No wheezes or rhonchi any crackles. Abdomen is obese soft nontender. Organs cannot be accurately palpated. There is no direct tenderness. No rebound tensile guarding.Examination of the extremities revealed easily palpable radial, femoral and pedal pulses. There was no cyanosis, clubbing or edema. Neurologically patient is awake and following commands and answering questions appropriately. - Labs CBC & Chem 7: 01/20/17 07:37 01/21/17 07:36 Labs: Abnormal Lab Results - Last 24 Hours (Table) 01/20/17 01/21/17 01/21/17 Range/Units 20:31 07:36 11:56 Potassium 5.4 H (3.5-5.1) mmol/L Chloride 113 H (98-107) mmol/L BUN 29 H (7-17) mg/dL Creatinine 1.22 H (0.52-1.04) mg/dL POC Glucose (mg/dL) 117 H 188 H (75-99) mg/dL Microbiology - Last 24 Hours (Table) 01/18/17 17:51 Blood Culture - Preliminary Blood No Growth after 48 hours Assessment and Plan Plan: Assessment 1 E. coli septicemia/septic shock. This is likely of a urinary source knowing that E. coli is also grown in the patient's urine culture. Currently on Rocephin. Patient is recovering from the hypotension currently off pressors. 2 severe bradycardia with hypotension, due to a combination of sepsis and hyperkalemia, improved and the patient is currently off pressors and renal function is improving 3 acute kidney injury, improving and creatinine is down to 1.22 4 hyperkalemia, recovered 5 anemia, acute likely dilutional him a current hemoglobin 8.0. 6 chronic atrial fibrillation, maintained on a combination of amiodarone, Bystolic, and Xarelto on outpatient basis, resumed today. 7 COPD 8 diabetes mellitus, insulin-dependent 9 hyperlipidemia 10 hypertension, history of 11 rheumatoid arthritis 12 hypothyroidism 13 osteoarthritis 14 morbid obesity 15 history of DVT on Xarelto 16 leukocytosis, recovered Plan: The patient was seen and evaluated by Dr. Patrick. She is stable from the pulmonary and critical care standpoint. We will continue with her current medications. We will increase her activity as tolerated. We'll follow with her on an as-needed basis.
[2017-01-21 17:24] LABS: Glucose,Whole Blood 92 mg/dL (75-99)
[2017-01-21] MEDS: RIVAROXABAN 15 MG TAB PO SCH (17:40)
[2017-01-21] MEDS: FUROSEMIDE 40 MG TAB PO SCH (17:41)
[2017-01-21 20:20] LABS: Glucose,Whole Blood 146 mg/dL (75-99)
--- NOTE | 2017-01-21 23:42 | PN ---
Patient is seen for followup for acute kidney injury. She is currently sitting up in a bedside chair. She is comfortable, not in any acute distress. Renal functions have improved. Patient was admitted with severe hyperkalemia, which has also improved, but potassium is still slightly on the higher side. Patient' s dialysis catheter has been discontinued. Creatinine has been progressively improving, now down to 1.2 from 1.4 yesterday. On examination, blood pressure is 126/64, heart rate 70 per minute. Patient is afebrile. EXAMINATION OF THE HEART: S1, S2. EXAMINATION OF LUNGS: Bilateral breath sounds are heard. Abdomen is soft, non-tender. Examination of lower extremities shows trace edema bilaterally. MARINE INSURANCE CLAIM EXAMINER exam is grossly intact. Patient is moving all 4 extremities. Labs show sodium 143, potassium 5.4, BUN 29, serum creatinine 1.2. ASSESSMENT: 1. Acute kidney injury, acute tubular necrosis, currently significantly improved. Patient had one treatment of hemodialysis. Renal function is continuing to improve. 2. Hyperkalemia with potassium of 7.8 on initial admission, currently resolved, although potassium is still staying on the higher side. I will start loop diuretics, which will help with the hyperkalemia. 3. Hypotension, bradycardia secondary to hyperkalemia, currently improved. 4. Bacteremia with blood cultures and urine cultures growing E coli. 5. Urinary tract infection with E coli. PLAN: Continue antibiotics. Start patient on low-dose loop diuretics. Repeat labs in a.m. MTDD
[2017-01-22] MEDS: LEVOTHYROXINE 75 MCG TAB PO SCH (06:09)
[2017-01-22 07:57] LABS: Glucose,Whole Blood 93 mg/dL (75-99)
[2017-01-22 08:09] LABS: Anisocytosis Slight; Basophils % (A) 1 %; CH 28.7; CHCM 31.1; Eosinophils # (A) 0.3 k/uL (0-0.7); Eosinophils % (A) 3 %; HCT 26.9 % (34.0-46.0); HDW 2.93; HGB 8.3 gm/dL (11.4-16.0); Hypochromasia Moderate; Luc # (Auto) 0.24; Luc % (Auto) 3; Lymphocytes # (A) 1.3 k/uL (1.0-4.8); Lymphocytes % (A) 14 %; MCH 28.7 pg (25.0-35.0); MCV 92.7 fL (80.0-100.0); Monocytes # (A) 0.4 k/uL (0-1.0); Monocytes % (A) 5 %; Neutrophils % (A) 75 %; RDW 16.6 % (11.5-15.5); WBC 9.4 k/uL (3.8-10.6); WBC (Perox) 10.04
[2017-01-22 08:22] LABS: Calcium 8.5 mg/dL (8.4-10.2); Potassium 3.9 mmol/L (3.5-5.1)
[2017-01-22] MEDS: PANTOPRAZOLE 40 MG TABLET PO SCH (08:30)
[2017-01-22] MEDS: cefTRIAXone 2,000 MG in SODIUM CHLORIDE 0.9% 100 ML IVPB SCH (08:30)
[2017-01-22] MEDS: ALLOPURINOL 300 MG TAB PO SCH (08:31)
[2017-01-22] MEDS: ATORVASTATIN 40 MG TAB PO SCH (08:32)
[2017-01-22] MEDS: ASPIRIN 81 MG CHEW PO SCH (08:32)
[2017-01-22] MEDS: AMIODARONE 200 MG TAB PO SCH (08:32)
[2017-01-22] MEDS: FUROSEMIDE 40 MG TAB PO SCH (08:32)
[2017-01-22] MEDS: NEBIVOLOL 5 MG TAB PO SCH (08:33)
[2017-01-22] MEDS: INSULIN LISPRO (humaLOG) 300 UNIT/3 ML VIAL SQ SCH ×2 (08:37→12:20)
[2017-01-22 08:45] VITALS: BP 133/60; PULSE 61; RESP 18; TEMP 97.6
--- NOTE | 2017-01-22 10:06 | P.DS ---
Providers Date of admission: 01/16/17 16:57 Expected date of discharge: 01/22/17 Attending physician: Chilo Gonzalez Consults: 01/16/17 16:57 Consult Physician Stat Consulting Provider: Elmo Voss Consult Reason/Comments: critical care Do you want consulting provider notified?: Already Contacted Consult Physician Stat Consulting Provider: Myron Carmichael Consult Reason/Comments: line placement Do you want consulting provider notified?: Already Contacted Consult Physician Stat Consulting Provider: Yahaira Barber Consult Reason/Comments: arf, hyperkalemia Do you want consulting provider notified?: Already Contacted 01/17/17 07:46 Consult Physician Routine Consulting Provider: Thee Dozier Consult Reason/Comments: symptomatic bradycardia Do you want consulting provider notified?: Already Contacted 01/18/17 09:07 Consult Physician Routine Consulting Provider: Yahaira Barber Consult Reason/Comments: nephrology Do you want consulting provider notified?: Already Contacted 01/18/17 09:12 Consult Physician Routine Consulting Provider: Elmo Voss 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 Acute toxo metabolic encephalopathy related to UTI with bacteremia and acute kidney injury 2. Acute kidney failure requiring emergent hemodialysis: Acute kidney injury secondary to hypotension and bradycardia. Kidney function improving off dialysis. Good urine output. creatinine almost back to normal range 3. Severe hyperkalemia on presentation, improved with hemodialysis. Secondary to acute kidney injury as well as Aldactone and lisinopril. Aldactone and lisinopril discontinued during this admission 4. Metabolic acidosis secondary to #2 5. Urinary tract infection with cultures growing E. coli patient will be placed on Keflex 500 mg 3 times a day for 10 days 6. Significant bradycardia with junctional rhythm on presentation now heart rate improved. Secondary to hyperkalemia. Patient was seen and evaluated by cardiology. Home medication resumed 7. History of paroxysmal atrial fibrillation on anti-coagulation with Rivaroxaban at home 8. Bacteremia with E. coli likely urinary source. may finish antibiotic course with oral antibiotic. Continue Keflex for 10 more days 9. Severe Sepsis on presentation resolved with IV fluid resuscitation and antibiotic 10. Acute anemia likely dilutional as well as some iron deficiency anemia. Patient cannot tolerate iron supplement due to a rash reaction. Hemoglobin at discharge is 8.3 11. Septic shock with bacteremia and UTI with E. coli Hospital course This is a 76-year-old female with past medical history noted below who presented to the emergency room with altered mental status. Patient is a very poor historian. She is alert and awake. She is oriented only to herself. She is not able to provide any significant medical history. Most of the medical history was obtained by chart review and nursing staff report. Apparently patient was brought into the emergency room with worsening confusion and altered mental status and was found to be in acute kidney failure with significant hyperkalemia of 7.8. She was also noted to be significantly bradycardic with heart rate in the 30s. Patient was seen and evaluated by cardiology and nephrology. She underwent emergent dialysis. Her lab work is improved this morning. Potassium is 4.9. Exact etiology of her acute kidney failure is unclear. She is known to have normal kidney failure as of November 2016. Patient herself is not sure about any of her medication at home. She said that she manage her own medicine by really doubt her ability to do so. No family at bedside. She remained hemodynamically stable. Patient was noticed the ICU. She did require emergent dialysis 1. Kidney function did show improvement. She was able to stay off of dialysis and urine output is adequate. Nephrology has cleared her for discharge. Acute kidney injury was likely related to her hypotension. Nephrology has restarted her Lasix. Potassium at discharge is normal at 3.9. Creatinine at discharge is 1.13. Recommend checking a BMP and CBC on Thursday. Patient also continue Keflex for 10 days to treat her bacteremia and UTI with E. coli. Patient was seen by cardiology during this admission. She had cardiac arrhythmias due to the elevated potassium level. Cardiac arrhythmias did resolve. And she was able to be restarted on her home medications. Cardiology had decreased the amiodarone to once a day. She's also on by systolic 20 mg daily. Xarelto was also able to be restarted 15 mg daily. Patient's lisinopril and Aldactone were discontinued during this admission. There were likely contributing factors to patient's severe hyperkalemia. Therefore we'll monitor electrolytes and blood pressures while she is at the [facility]. We'll have her follow-up with consulting physicians. And continue to make further adjustments to her medications as needed. Patient is medically stable for discharge. She has shown great improvement. She'll be discharged to [facility] for further rehabilitation. Please refer to chart for any further details. Also note that during this admission patient has not required her Lantus. And has only been using a sliding scale coverage. Her morning blood sugars have been in the 90s. Blood sugars throughout the day of been mostly in the lower 100s as high as 146. Therefore we'll continue the sliding scale coverage in the long term. Continue to monitor blood sugars 3 times a day and will make further adjustments as needed. I performed an examination of the patient and discussed their management with the physician Sld Teacher. I have reviewed the Physician Sld Teacher's notes and agree with the documented findings and plan of care Patient Condition at Discharge: Stable Plan - Discharge Summary New Discharge Prescriptions: New Amiodarone [Cordarone] 200 mg PO DAILY tab Cephalexin [Keflex] 500 mg PO Q8HR #30 cap Continue Aspirin EC [Ecotrin Low Dose] 81 mg PO DAILY Albuterol Inhaler [Ventolin Hfa Inhaler] 2 puff INHALATION RT-Q4H PRN PRN Reason: Shortness Of Breath Omeprazole 20 mg PO DAILY Furosemide [Lasix] 40 mg PO DAILY Insulin Lispro [humaLOG Kwikpen] See Protocol SQ AC-TID PRN PRN Reason: Blood Sugar - High Meclizine [Antivert] 25 mg PO TID Nebivolol HCl [Bystolic] 20 mg PO DAILY Albuterol Nebulized [Ventolin Nebulized] 2.5 mg INHALATION RT-Q4H PRN PRN Reason: Shortness Of Breath Rivaroxaban [Xarelto] 15 mg PO DAILY Levothyroxine Sodium [Synthroid] 75 mcg PO DAILY Atorvastatin [Lipitor] 40 mg PO DAILY Allopurinol [Zyloprim] 300 mg PO DAILY Loratadine [Claritin] 10 mg PO DAILY Isosorbide Mononitrate ER [Imdur] 30 mg PO DAILY Discontinued Insulin Glargine [Lantus] 40 unit SQ HS #1 vial amLODIPine [Norvasc] 5 mg PO DAILY #90 tab Lisinopril 30 mg PO DAILY Amiodarone [Cordarone] 200 mg PO BID Spironolactone [Aldactone] 50 mg PO DAILY Potassium Chloride [Klor-Con 20] 20 meq PO DAILY Discharge Medication List Albuterol Inhaler [Ventolin Hfa Inhaler] 2 puff INHALATION RT-Q4H PRN 04/29/16 [ History] Aspirin EC [Ecotrin Low Dose] 81 mg PO DAILY 04/29/16 [History] Omeprazole 20 mg PO DAILY 04/29/16 [History] Furosemide [Lasix] 40 mg PO DAILY 07/24/16 [History] Insulin Lispro [humaLOG Kwikpen] See Protocol SQ AC-TID PRN 07/24/16 [History] Meclizine [Antivert] 25 mg PO TID 07/24/16 [History] Nebivolol HCl [Bystolic] 20 mg PO DAILY 07/24/16 [History] Albuterol Nebulized [Ventolin Nebulized] 2.5 mg INHALATION RT-Q4H PRN 01/16/17 [ History] Allopurinol [Zyloprim] 300 mg PO DAILY 01/16/17 [History] Atorvastatin [Lipitor] 40 mg PO DAILY 01/16/17 [History] Isosorbide Mononitrate ER [Imdur] 30 mg PO DAILY 01/16/17 [History] Levothyroxine Sodium [Synthroid] 75 mcg PO DAILY 01/16/17 [History] Loratadine [Claritin] 10 mg PO DAILY 01/16/17 [History] Rivaroxaban [Xarelto] 15 mg PO DAILY 01/16/17 [History] Amiodarone [Cordarone] 200 mg PO DAILY tab 01/22/17 [Rx] Cephalexin [Keflex] 500 mg PO Q8HR #30 cap 01/22/17 [Rx] Follow up Appointment(s)/Referral(s): Elmo Voss MD [STAFF PHYSICIAN] - 1 Week Linnea Alonso DO [Primary Care Provider] - 1 Week Yahaira Barber MD [STAFF PHYSICIAN] - 1 Week Activity/Diet/Wound Care/Special Instructions: Diet: cardiac, diabetic. mechanically altered dysphagia II diet Activity: as tolerated Check CBC, BMP on Thursday Ok to Discharge to [facility]. Dr. Gonzalez to follow Discharge Disposition: TRANSFER TO SNF/ECF
[2017-01-22 11:43] LABS: Glucose,Whole Blood 219 mg/dL (75-99)
--- NOTE | 2017-01-22 13:22 | CONS ---
The patient was seen in the emergency room on 01/16/2017 with history of altered mental status. Patient was brought into the emergency room with confusion and altered mental status and was found to be in acute kidney failure with significant hyperkalemia of 7.8. She was also very bradycardic with heart rate in the 30s. I was consulted for placement of the ( ) dialysis catheter. MEDICAL HISTORY: Patient has atrial fibrillation, heart failure, chronic obstructive pulmonary disease, diabetes, deep vein thrombosis, sleep apnea, thyroid disorder. On examination, patient was seen in the emergency room. She was bradycardic and was very mentally confused. Neck was supple. Chest has good air entry. Abdomen was protuberant, femorals were palpable. PLAN: Placement of the ( ) dialysis catheter. Risks and complications discussed. BRENDON
--- NOTE | 2017-01-22 15:39 | P.PN ---
Subjective Patient is seen in follow-up for acute kidney injury. Renal function is stable with creatinine 1.3 today. However his potassium is elevated at 6 this morning. Patient was noted to have an esophageal mass and had an esophageal Wallstent placed on January 21. The pathology came back as squamous cell carcinoma. Patient's been having vomiting this morning. Oral intake remains poor. Denies chest pain or shortness of breath. Vital signs are stable. General: The patient appeared well nourished and normally developed. HEENT: Head exam is unremarkable. Neck is without jugular venous distension. LUNGS: Lungs are clear to auscultation and percussion. Breath sounds decreased. HEART: Rate and Rhythm are regular. First and second heart sounds normal. No murmurs, rubs or gallops. ABDOMEN: Abdominal exam reveals normal bowel sounds. Non-tender and non- distended. No evidence of peritonitis. EXTREMITITES: No clubbing, cyanosis, or edema. Objective - Vital Signs Vital signs: Vital Signs Temp 97.6 F 01/22/17 07:00 Pulse 61 01/22/17 08:00 Resp 18 01/22/17 08:00 BP 133/60 01/22/17 07:00 Pulse Ox 100 01/22/17 07:00 Intake & Output 01/21/17 01/22/17 01/22/17 18:59 06:59 18:59 Intake Total 720 Output Total 1 65 Balance 719 -65 Weight 129.6 kg 129.6 kg Intake: Oral 720 Output: Urine 65 Urine/Stool Mix 1 Other: Voiding Method Bedside Commode Bedside Commode Bedside Commode # Voids 1 6 2 # Bowel Movements 1 1 - Labs CBC & Chem 7: 01/22/17 07:44 01/22/17 07:44 Labs: Abnormal Lab Results - Last 24 Hours (Table) 01/21/17 01/22/17 01/22/17 Range/Units 20:18 07:44 07:44 RBC 2.90 L (3.80-5.40) m/uL Hgb 8.3 L (11.4-16.0) gm/dL Hct 26.9 L (34.0-46.0) % RDW 16.6 H (11.5-15.5) % BUN 23 H (7-17) mg/dL Creatinine 1.13 H (0.52-1.04) mg/dL POC Glucose (mg/dL) 146 H (75-99) mg/dL 01/22/17 Range/Units 11:41 RBC (3.80-5.40) m/uL Hgb (11.4-16.0) gm/dL Hct (34.0-46.0) % RDW (11.5-15.5) % BUN (7-17) mg/dL Creatinine (0.52-1.04) mg/dL POC Glucose (mg/dL) 219 H (75-99) mg/dL Microbiology - Last 24 Hours (Table) 01/18/17 17:51 Blood Culture - Preliminary Blood No Growth after 72 hours Assessment and Plan Plan: Assessment: #1. Nonoliguric acute kidney injury mostly prerenal. Renal function stable with creatinine at 1.3. Unclear as to what his baseline renal function is. Urinalysis is noted to be benign. #2. Hyperkalemia. It appears that the specimen is slightly hemolyzed. Patient is not severely acidotic and blood sugars are not high. He's not on any meds that will predispose to hyperkalemia. #3. 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 #4. Urinary retention status post Hayes catheter placement. #5. Mild hyponatremia which is due to D5W infusion. Plan: I will give him 10 units of IV regular insulin with amp of D50. 30 g of Kayexalate once. Repeat potassium level at 8 PM today. Avoid nephrotoxic agents and hypotensive episodes. Maintain oral sodium bicarbonate as long as able to tolerate PO intake. Discontinue D5W and may be amps of D50 if needed for hypoglycemia.
--- NOTE | 2017-01-23 08:06 | PCN ---
PREOPERATIVE DIAGNOSIS: Acute kidney failure with potassium of 7.8. PROCEDURE: Ultrasound-guided dialysis catheter placed left femoral approach. Patient was seen in the emergency room. The right groin was prepped and draped in the proper sterile manner. 1% Lidocaine was infiltrated. Ultrasound-guided micropuncture was introduced into the left femoral vein. Micropuncture guidewire was passed and 4 Vietnamese dilator advanced on top of the guidewire. After that we passed a regular guidewire with no resistance. The area dilator was advanced and then the dialysis catheter was introduced on top of the guidewire and guidewire was removed, flushed with heparin saline and Hep- locked. Secured with 3-0 nylon and dressing applied. Patient tolerated the procedure well. BRENDON
--- NOTE | 2017-01-26 09:44 | CDI ---
In responding to this query, please exercise your independent professional judgment. The [facility] Coding Staff and Clinical Documentation Specialists appreciate your assistance in clarifying documentation, maintaining compliance with coding guidelines, accurately documenting patients condition and capturing severity of illness. The fact that a question is asked does not imply that any particular answer is desired or expected. Communication forms are a method of clarifying documentation and are not made part of the Legal Health Record. Thank you in advance for your clarification. Last Revision, August 2016 [facility] [address] [place] [address] Documentation Clarification Form Date: 01/26/2017 9:26:00 AM From: Ellie Terry Admit Date: 01/16/2017 4:57:00 PM Patient Name: Tamar Dominguez Visit Number: [id number] Discharge Date: 01/22/17 Dr. Chilo Gonzalez/Jeanne Rodriguez CHF is documented in the 01/17 & 01/18 progress notes. History/Risk Factors: Paroxysmal atrial fibrillation, hyperkkalemia, junctional bradycardia VS/Pulse OX: 01/17 - RR-28, NH-69, BP-129/77, O2 dropped to 87 Echocardiogram Results: Right ventricular systolic pressure, as measured by Doppler, is 45.15 mmHg. Chest X Ray: 01/17 CXR: Consistent with mild congestive heart failure. Treatment: received Lasix IV on 01/16, 01/29 then Lasix po starting on 01/29. In your professional opinion, can you please clarify the acuity and type of CHF if known? Systolic Heart Failure: Acute Chronic Acute on Chronic Diastolic Heart Failure: Acute Chronic Acute on Chronic Systolic & Diastolic Heart Failure: Acute Chronic Acute on Chronic Unable to determine Other, please specify Please document addendum the discharge summary in order to capture severity of illness and risk of mortality. Include clinical findings that support your diagnosis. FYI: Press F11 to launch patient chart. If you have a question about this query, please contact Meenakshi Manjarrez, Restaurant Floor Manager, [facility] at [phone] between 8am and 5pm. BRENDON
== END 2017-01-22 15:20 | DRG 871 ==
LOC: EC 15:22 → 6ICU 16:57 → 5MS5E 01-19 12:35
PROVIDERS: ADMIT Internal Medicine; ATTEND Internal Medicine
PROC: 5A1D00Z (ICD-10-PCS; principal; 2017-01-16)
PROC: 02HV33Z Insertion of Infusion Device into Superior Vena Cava, Percutaneous Approach (ICD-10-PCS; 2017-01-16)
PROC: B548ZZA Ultrasonography of Superior Vena Cava, Guidance (ICD-10-PCS; 2017-01-16)
PROC: 06HN33Z Insertion of Infusion Device into Left Femoral Vein, Percutaneous Approach (ICD-10-PCS; 2017-01-16)
PROC: B54CZZA Ultrasonography of Left Lower Extremity Veins, Guidance (ICD-10-PCS; 2017-01-16)
PROC: 06HN33Z Insertion of Infusion Device into Left Femoral Vein, Percutaneous Approach (ICD-10-PCS; 2017-01-22)
PROC: B54CZZA Ultrasonography of Left Lower Extremity Veins, Guidance (ICD-10-PCS; 2017-01-22)
DX: A41.51 Sepsis due to Escherichia coli [E. coli] (principal); R65.21 Severe sepsis with septic shock; N17.0 Acute kidney failure with tubular necrosis; G93.41 Metabolic encephalopathy; I50.33 Acute on chronic diastolic (congestive) heart failure; E87.2 Acidosis; I48.0 Paroxysmal atrial fibrillation; R00.1 Bradycardia, unspecified; E66.01 Morbid (severe) obesity due to excess calories; I27.2 Other secondary pulmonary hypertension; G43.909 Migraine, unspecified, not intractable, without status migrainosus; N12 Tubulo-interstitial nephritis, not specified as acute or chronic; E87.1 Hypo-osmolality and hyponatremia; I11.0 Hypertensive heart disease with heart failure; I08.1 Rheumatic disorders of both mitral and tricuspid valves; E11.21 Type 2 diabetes mellitus with diabetic nephropathy; E87.5 Hyperkalemia; J44.9 Chronic obstructive pulmonary disease, unspecified; M06.9 Rheumatoid arthritis, unspecified; E78.5 Hyperlipidemia, unspecified; G47.30 Sleep apnea, unspecified; M19.91 Primary osteoarthritis, unspecified site; K21.9 Gastro-esophageal reflux disease without esophagitis; K59.00 Constipation, unspecified; M10.9 Gout, unspecified; D50.9 Iron deficiency anemia, unspecified; E03.9 Hypothyroidism, unspecified; Z79.01 Long term (current) use of anticoagulants; Z79.82 Long term (current) use of aspirin; Z79.4 Long term (current) use of insulin; Z79.899 Other long term (current) drug therapy; Z87.891 Personal history of nicotine dependence; Z86.718 Personal history of other venous thrombosis and embolism; Z90.710 Acquired absence of both cervix and uterus; Z96.651 Presence of right artificial knee joint; Z98.42 Cataract extraction status, left eye; Z98.41 Cataract extraction status, right eye; Z88.2 Allergy status to sulfonamides; Z88.7 Allergy status to serum and vaccine; Z88.8 Allergy status to other drugs, medicaments and biological substances
CPT/HCPCS: 36415; 70450; 71010; 76770; 80048; 80053; 81001; 82550; 82553; 82728; 83540; 83550; 83605; 83735; 84100; 84439; 84443; 84481; 84484; 85025; 85610; 85730; 87040; 87077; 87086; 87186; 90935; 93005; 93306; 96365; 96366; 96368; 96375; 96376; 99291

== ENCOUNTER 2017-08-22 11:26 | Inpatient (IN) | payer MEDICARE ==
[2017-08-22 12:38] LABS: Anisocytosis Slight; Basophils % (A) 0 %; Eosinophils # (A) 0.2 k/uL (0-0.7); Eosinophils % (A) 2 %; HCT 27.4 % (34.0-46.0); HGB 7.7 gm/dL (11.4-16.0); Hypochromasia Marked; Lymphocytes % (A) 7 %; MCH 23.9 pg (25.0-35.0); MCHC 28.2 g/dL (31.0-37.0); Monocytes # (A) 0.6 k/uL (0-1.0); Monocytes % (A) 5 %; Neutrophils # (A) 11.5 k/uL (1.3-7.7); Neutrophils % (A) 84 %; Platelet Count 390 k/uL (150-450); Poikilocytosis Slight; RBC 3.22 m/uL (3.80-5.40); RDW 17.4 % (11.5-15.5); WBC 13.7 k/uL (3.8-10.6)
--- NOTE | 2017-08-22 12:38 | ED ---
General Adult HPI - General Chief complaint: Recheck/Abnormal Lab/Rx Stated complaint: low blood count Time Seen by Provider: 08/22/17 11:56 Source: patient, RN notes reviewed, old records reviewed Mode of arrival: wheelchair Limitations: no limitations - History of Present Illness Initial comments: 77-year-old female presents emergency department for down trending hemoglobin. Patient is hemoglobin 7.9, this was repeated today, 7.7. Patient is currently on xarelto, she does report dark stools. She also complains of generalized weakness and dyspnea. Patient has past medical history of congestive heart failure, she has noted worsening lower extremity edema. No fever or chills. No dysuria. No abdominal pain. - Related Data Home Medications Medication Instructions Recorded Confirmed Albuterol Inhaler [Ventolin Hfa 2 puff INHALATION RT-Q4H PRN 04/29/16 08/22/17 Inhaler] Omeprazole 20 mg PO DAILY 04/29/16 08/22/17 Furosemide [Lasix] 40 mg PO DAILY 07/24/16 08/22/17 Insulin Lispro [humaLOG Kwikpen] See Protocol SQ AC-TID PRN 07/24/16 08/22/17 Meclizine [Antivert] 25 mg PO TID 07/24/16 08/22/17 Albuterol Nebulized [Ventolin 2.5 mg INHALATION RT-Q4H PRN 01/16/17 08/22/17 Nebulized] Allopurinol [Zyloprim] 300 mg PO DAILY 01/16/17 08/22/17 Atorvastatin [Lipitor] 40 mg PO DAILY 01/16/17 08/22/17 Isosorbide Mononitrate ER [Imdur] 30 mg PO DAILY 01/16/17 08/22/17 Levothyroxine Sodium [Synthroid] 75 mcg PO DAILY 01/16/17 08/22/17 Rivaroxaban [Xarelto] 15 mg PO DAILY@1700 01/16/17 08/22/17 Amoxic-Pot Clav 875-125Mg 1 tab PO Q12HR 08/22/17 08/22/17 [Augmentin 875-125] Nebivolol HCl [Bystolic] 10 mg PO DAILY 08/22/17 08/22/17 Spironolactone 25 mg PO DAILY 08/22/17 08/22/17 Previous Rx's Medication Instructions Recorded Amiodarone [Cordarone] 200 mg PO DAILY tab 01/22/17 Allergies Allergy/AdvReac Type Severity Reaction Status Date / Time iron Allergy Rash/Hives Verified 08/22/17 12:23 Sulfa (Sulfonamide Allergy Rash/Hives Verified 08/22/17 12:23 Antibiotics) Tetanus Vaccines and Toxoid Allergy Swelling Verified 08/22/17 12:23 Review of Systems ROS Statement: Those systems with pertinent positive or pertinent negative responses have been documented in the HPI. ROS Other: All systems not noted in ROS Statement are negative. 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", gout History of Any Multi-Drug Resistant Organisms: None Reported Past Surgical History: Heart Catheterization, Hysterectomy, Joint Replacement, Orthopedic Surgery Additional Past Surgical History / Comment(s): rt knee replacement, heel spur left foot, sanjana cataracts,cystoscopy Past Anesthesia/Blood Transfusion Reactions: No Reported Reaction Past Psychological History: No Psychological Hx Reported Smoking Status: Former smoker Past Alcohol Use History: None Reported Past Drug Use History: None Reported - Past Family History Mother Family Medical History: Unable to Obtain Father Family Medical History: Unable to Obtain General Exam Limitations: no limitations General appearance: alert, in no apparent distress Head exam: Present: atraumatic, normocephalic Eye exam: Present: normal appearance, PERRL, EOMI ENT exam: Present: normal exam Neck exam: Present: normal inspection. Absent: tenderness, meningismus Respiratory exam: Present: decreased breath sounds. Absent: respiratory distress Cardiovascular Exam: Present: regular rate, normal rhythm GI/Abdominal exam: Present: soft, distended. Absent: tenderness, guarding Rectal exam: Present: normal inspection, other (Minimal stool on examination). Absent: black stool, bloody stool Extremities exam: Present: pedal edema (3+ pitting edema with fluid filled bulla ) Back exam: Present: normal inspection Neurological exam: Present: alert, oriented X3, CN II-XII intact. Absent: motor sensory deficit Psychiatric exam: Present: normal affect, normal mood Skin exam: Present: warm, dry, intact. Absent: cyanosis, diaphoretic Course Vital Signs 08/22/17 08/22/17 11:44 13:20 Temperature 98.0 F Pulse Rate 57 L 53 L Respiratory 20 18 Rate Blood Pressure 110/61 144/92 O2 Sat by Pulse 98 100 Oximetry EKG Findings - EKG Comments: EKG Findings:: EKG shows sinus bradycardia, first-degree AV block, low voltage, rate of 56, NE interval 254, QRS duration 94, QTC 465 no signs of acute ischemia Medical Decision Making - Medical Decision Making 77-year-old female presenting with down trending hemoglobin. She has report melanotic stool. There is minimal stool on examination, this is heme occult negative however poor sample. She is anticoagulated. Laboratory studies reveal hemoglobin 7.7, mild elevation in white blood cell count 13.7, potassium 5.2, creatinine is 1.9 which appears baseline for the patient. Troponin is negative. Chest x-ray shows chronic changes with cardiomegaly, no pulmonary edema. Patient will be admitted, she is given Protonix, repeat hemoglobin in the morning. Her anemia may be secondary to chronic kidney disease versus GI bleed. - Lab Data Result diagrams: 08/22/17 12:12 08/22/17 12:12 Lab Results 08/22/17 08/22/17 08/22/17 Range/Units 12:12 12:12 12:12 WBC 13.7 H (3.8-10.6) k/uL RBC 3.22 L (3.80-5.40) m/uL Hgb 7.7 L (11.4-16.0) gm/dL Hct 27.4 L (34.0-46.0) % MCV 85.0 (80.0-100.0) fL MCH 23.9 L (25.0-35.0) pg MCHC 28.2 L (31.0-37.0) g/dL RDW 17.4 H (11.5-15.5) % Plt Count 390 (150-450) k/uL Neutrophils % 84 % Lymphocytes % 7 % Monocytes % 5 % Eosinophils % 2 % Basophils % 0 % Neutrophils # 11.5 H (1.3-7.7) k/uL Lymphocytes # 1.0 (1.0-4.8) k/uL Monocytes # 0.6 (0-1.0) k/uL Eosinophils # 0.2 (0-0.7) k/uL Basophils # 0.0 (0-0.2) k/uL Hypochromasia Marked Poikilocytosis Slight Anisocytosis Slight PT 12.1 H (9.0-12.0) sec INR 1.3 H (<1.2) APTT 27.5 (22.0-30.0) sec Sodium (137-145) mmol/L Potassium (3.5-5.1) mmol/L Chloride (98-107) mmol/L Carbon Dioxide (22-30) mmol/L Anion Gap mmol/L BUN (7-17) mg/dL Creatinine (0.52-1.04) mg/dL Est GFR (CKD-EPI)AfAm (>60 ml/min/1.73 sqM) Est GFR (CKD-EPI)NonAf (>60 ml/min/1.73 sqM) Glucose (74-99) mg/dL Plasma Lactic Acid Oscar (0.7-2.0) mmol/L Calcium (8.4-10.2) mg/dL Magnesium (1.6-2.3) mg/dL Total Bilirubin (0.2-1.3) mg/dL AST (14-36) U/L ALT (9-52) U/L Alkaline Phosphatase (38-126) U/L Total Creatine Kinase 25 L (30-135) U/L CK-MB (CK-2) <0.2 (0.0-2.4) ng/mL CK-MB (CK-2) Rel Index Troponin I <0.012 (0.000-0.034) ng/mL Total Protein (6.3-8.2) g/dL Albumin (3.5-5.0) g/dL Stool Occult Blood (Negative) Blood Type Blood Type Confirm Blood Type Recheck Antibody Screen Spec Expiration Date 08/22/17 08/22/17 08/22/17 Range/Units 12:12 12:12 12:12 WBC (3.8-10.6) k/uL RBC (3.80-5.40) m/uL Hgb (11.4-16.0) gm/dL Hct (34.0-46.0) % MCV (80.0-100.0) fL MCH (25.0-35.0) pg MCHC (31.0-37.0) g/dL RDW (11.5-15.5) % Plt Count (150-450) k/uL Neutrophils % % Lymphocytes % % Monocytes % % Eosinophils % % Basophils % % Neutrophils # (1.3-7.7) k/uL Lymphocytes # (1.0-4.8) k/uL Monocytes # (0-1.0) k/uL Eosinophils # (0-0.7) k/uL Basophils # (0-0.2) k/uL Hypochromasia Poikilocytosis Anisocytosis PT (9.0-12.0) sec INR (<1.2) APTT (22.0-30.0) sec Sodium 139 (137-145) mmol/L Potassium 5.2 H (3.5-5.1) mmol/L Chloride 100 (98-107) mmol/L Carbon Dioxide 29 (22-30) mmol/L Anion Gap 10 mmol/L BUN 73 H (7-17) mg/dL Creatinine 1.90 H (0.52-1.04) mg/dL Est GFR (CKD-EPI)AfAm 29 (>60 ml/min/1.73 sqM) Est GFR (CKD-EPI)NonAf 25 (>60 ml/min/1.73 sqM) Glucose 154 H (74-99) mg/dL Plasma Lactic Acid Oscar 1.3 (0.7-2.0) mmol/L Calcium 9.3 (8.4-10.2) mg/dL Magnesium 2.8 H (1.6-2.3) mg/dL Total Bilirubin 0.5 (0.2-1.3) mg/dL AST 21 (14-36) U/L ALT 31 (9-52) U/L Alkaline Phosphatase 127 H (38-126) U/L Total Creatine Kinase (30-135) U/L CK-MB (CK-2) (0.0-2.4) ng/mL CK-MB (CK-2) Rel Index Troponin I (0.000-0.034) ng/mL Total Protein 6.4 (6.3-8.2) g/dL Albumin 3.7 (3.5-5.0) g/dL Stool Occult Blood (Negative) Blood Type A Positive Blood Type Confirm Blood Type Recheck CABO Indicated Antibody Screen NEGATIVE Spec Expiration Date 08/25/2017231108/22/17 08/22/17 Range/Units 12:18 12:48 WBC (3.8-10.6) k/uL RBC (3.80-5.40) m/uL Hgb (11.4-16.0) gm/dL Hct (34.0-46.0) % MCV (80.0-100.0) fL MCH (25.0-35.0) pg MCHC (31.0-37.0) g/dL RDW (11.5-15.5) % Plt Count (150-450) k/uL Neutrophils % % Lymphocytes % % Monocytes % % Eosinophils % % Basophils % % Neutrophils # (1.3-7.7) k/uL Lymphocytes # (1.0-4.8) k/uL Monocytes # (0-1.0) k/uL Eosinophils # (0-0.7) k/uL Basophils # (0-0.2) k/uL Hypochromasia Poikilocytosis Anisocytosis PT (9.0-12.0) sec INR (<1.2) APTT (22.0-30.0) sec Sodium (137-145) mmol/L Potassium (3.5-5.1) mmol/L Chloride (98-107) mmol/L Carbon Dioxide (22-30) mmol/L Anion Gap mmol/L BUN (7-17) mg/dL Creatinine (0.52-1.04) mg/dL Est GFR (CKD-EPI)AfAm (>60 ml/min/1.73 sqM) Est GFR (CKD-EPI)NonAf (>60 ml/min/1.73 sqM) Glucose (74-99) mg/dL Plasma Lactic Acid Oscar (0.7-2.0) mmol/L Calcium (8.4-10.2) mg/dL Magnesium (1.6-2.3) mg/dL Total Bilirubin (0.2-1.3) mg/dL AST (14-36) U/L ALT (9-52) U/L Alkaline Phosphatase (38-126) U/L Total Creatine Kinase (30-135) U/L CK-MB (CK-2) (0.0-2.4) ng/mL CK-MB (CK-2) Rel Index Troponin I (0.000-0.034) ng/mL Total Protein (6.3-8.2) g/dL Albumin (3.5-5.0) g/dL Stool Occult Blood Negative (Negative) Blood Type Blood Type Confirm A Positive Blood Type Recheck Antibody Screen Spec Expiration Date Disposition Clinical Impression: Renal insufficiency, GI bleed Disposition: ADMITTED IP TO THIS [facility] Condition: Stable Referrals: Linnea Alonso DO [Primary Care Provider] - 1-2 days Decision to Admit Reason: Admit from EC Decision Date: 08/22/17 Decision Time: 15:16
[2017-08-22 12:42] LABS: INR 1.3 (<1.2); Partial Thromboplastin Time 27.5 sec (22.0-30.0); Prothrombin Time 12.1 sec (9.0-12.0)
[2017-08-22 12:44] LABS: Albumin 3.7 g/dL (3.5-5.0); Calcium 9.3 mg/dL (8.4-10.2); Magnesium 2.8 mg/dL (1.6-2.3); Potassium 5.2 mmol/L (3.5-5.1); Total Bilirubin 0.5 mg/dL (0.2-1.3); Total Protein 6.4 g/dL (6.3-8.2)
[2017-08-22 12:51] LABS: Creatine Kinase 25 U/L (30-135)
--- NOTE | 2017-08-22 12:55 | XR ---
EXAMINATION TYPE: XR chest 2V DATE OF EXAM: 08/22/2017 COMPARISON: Chest x-ray January 19, 2017. HISTORY: Anemia. Chest pain per order. TECHNIQUE: Frontal and lateral views of the chest are obtained. FINDINGS: Exam is once again suboptimal secondary to patient's large body habitus. There is chronic p arenchymal change without suspicious focal air space opacity, pleural effusion, or pneumothorax seen. The cardiac silhouette size remains enlarged. Exaggerated thoracic kyphosis is noted. IMPRESSION: Chronic changes and cardiomegaly without acute pulmonary process.
[2017-08-22 13:03] LABS: Creatine Kinase MB <0.2 ng/mL (0.0-2.4); Troponin I <0.012 ng/mL (0.000-0.034)
[2017-08-22] MEDS ORDERED: PANTOPRAZOLE 40 MG/10 ML VIAL IVP STA (15:06)
[2017-08-22] MEDS ORDERED: NALOXONE 0.4 MG/ML 1 ML VIAL IV PRN (15:10)
[2017-08-22] MEDS ORDERED: ACETAMINOPHEN TAB 325 MG TAB PO STA (15:35)
[2017-08-22 16:13] VITALS: BMI 44.9
[2017-08-22 17:11] LABS: Glucose,Whole Blood 129 mg/dL (75-99)
[2017-08-22] MEDS: INSULIN ASPART 100 UNIT/ML 1 ML 10 ML VIAL SQ SCH ×2 (17:21→21:47)
[2017-08-22 21:00] LABS: Glucose,Whole Blood 214 mg/dL (75-99)
[2017-08-23] MEDS: LEVOTHYROXINE 75 MCG TAB PO SCH (06:09)
[2017-08-23 06:47] LABS: Glucose,Whole Blood 222 mg/dL (75-99)
[2017-08-23] MEDS: AMIODARONE 200 MG TAB PO SCH (08:07)
[2017-08-23] MEDS: NEBIVOLOL 5 MG TAB PO SCH (08:07)
[2017-08-23] MEDS: ISOSORBIDE MONONITRATE ER 30 MG TAB.ER.24H PO SCH (08:07)
[2017-08-23] MEDS: ATORVASTATIN 40 MG TAB PO SCH (08:11)
[2017-08-23] MEDS: FUROSEMIDE 40 MG TAB PO SCH (08:11)
[2017-08-23] MEDS: PANTOPRAZOLE 40 MG/10 ML VIAL IVP SCH (08:11)
[2017-08-23] MEDS: INSULIN ASPART 100 UNIT/ML 1 ML 10 ML VIAL SQ SCH ×4 (08:12→20:20)
[2017-08-23] MEDS: SPIRONOLACTONE 25 MG TAB PO SCH (08:13)
[2017-08-23 08:39] LABS: Albumin 3.4 g/dL (3.5-5.0); Magnesium 2.8 mg/dL (1.6-2.3); Potassium 5.2 mmol/L (3.5-5.1); Total Bilirubin 0.3 mg/dL (0.2-1.3); Total Protein 5.9 g/dL (6.3-8.2)
[2017-08-23 08:49] LABS: Anisocytosis Slight; Basophils % (A) 0 %; Eosinophils # (A) 0.3 k/uL (0-0.7); Eosinophils % (A) 2 %; HCT 26.6 % (34.0-46.0); HGB 7.5 gm/dL (11.4-16.0); Hypochromasia Marked; Lymphocytes # (A) 1.3 k/uL (1.0-4.8); Lymphocytes % (A) 11 %; MCH 24.2 pg (25.0-35.0); MCHC 28.3 g/dL (31.0-37.0); MCV 85.6 fL (80.0-100.0); Mean Platelet Volume 7.2; Monocytes # (A) 0.5 k/uL (0-1.0); Monocytes % (A) 4 %; Neutrophils # (A) 9.7 k/uL (1.3-7.7); Neutrophils % (A) 81 %; Platelet Count 358 k/uL (150-450); Poikilocytosis Slight; RDW 16.9 % (11.5-15.5)
[2017-08-23 11:12] LABS: Glucose,Whole Blood 114 mg/dL (75-99)
--- NOTE | 2017-08-23 12:01 | P.PN ---
Subjective Progress Note Date: 08/23/17 Tamar Dominguez is a 77-year-old female who presented to [facility] emergency department for down trending hemoglobin. Patient was complaining of weakness and shortness of breath. Patient hemoglobin was 7.9, this was repeated on the day of admission and it was 7.7. Patient was on xarelto, due to history of recurrent lower extremity DVT and 1 episode of PE per patient. she does report dark stools, rectal exam was done in the emergency room and was reported as heme-negative, however sample was questionable was minimal to no amount of stool in it. Patient states that she had multiple episodes of DVT in the past, she was diagnosed once in the past with pulmonary embolism, her last DVT was 5 years ago , she has been maintained on Xarelto. Past medical history significant for congestive heart failure, lower extremity DVT, pulmonary embolism, hypertension, hyperlipidemia, diabetes mellitus and COPD, patient also has a history of sleep apnea and rheumatoid arthritis and gout. On review of systems patient is alert and oriented in no apparent distress is complaining of generalized weakness she denies any fever or chills she has some dizziness and lightheadedness, she denies any chest pain she has occasional shortness of breath with activity she denies any cough there is no palpitation no nausea or vomiting no abdominal pain no diarrhea or constipation she reports seen black tarry stools in the last few days, she denies any bright red blood per rectum, there is no urinary symptoms. Objective - Vital Signs Vital signs: Vital Signs Temp 97.6 F 08/23/17 07:00 Pulse 52 L 08/23/17 08:00 Resp 20 08/23/17 07:00 BP 109/51 08/23/17 07:00 Pulse Ox 94 L 08/23/17 07:00 Intake & Output 08/22/17 08/23/17 08/23/17 17:59 06:59 18:59 Intake Total Balance Weight 122.47 kg Intake: Oral Other: Voiding Method Bedpan # Voids 2 - Exam In general patient is alert and oriented 3 in no apparent distress HEENT head normocephalic and atraumatic Neck is supple no JVD no goiter no lymphadenopathy Chest exam reveals a few scattered crackles no wheezing Cardiac exam reveals regular heart sounds no gallops no murmurs Abdomen is soft nontender no organomegaly Extremity exam reveals mild edema, there is erythema extending from below the knee down to the feet area bilaterally Neurological exam reveals no focal deficit - Labs CBC & Chem 7: 08/23/17 07:38 08/23/17 07:38 Labs: Abnormal Lab Results - Last 24 Hours (Table) 08/22/17 08/22/17 08/22/17 Range/Units 12:12 12:12 12:12 WBC 13.7 H (3.8-10.6) k/uL RBC 3.22 L (3.80-5.40) m/uL Hgb 7.7 L (11.4-16.0) gm/dL Hct 27.4 L (34.0-46.0) % MCH 23.9 L (25.0-35.0) pg MCHC 28.2 L (31.0-37.0) g/dL RDW 17.4 H (11.5-15.5) % Neutrophils # 11.5 H (1.3-7.7) k/uL PT 12.1 H (9.0-12.0) sec INR 1.3 H (<1.2) Potassium (3.5-5.1) mmol/L BUN (7-17) mg/dL Creatinine (0.52-1.04) mg/dL Glucose (74-99) mg/dL POC Glucose (mg/dL) (75-99) mg/dL Magnesium (1.6-2.3) mg/dL Alkaline Phosphatase (38-126) U/L Total Creatine Kinase 25 L (30-135) U/L Total Protein (6.3-8.2) g/dL Albumin (3.5-5.0) g/dL 08/22/17 08/22/17 08/22/17 Range/Units 12:12 17:07 20:41 WBC (3.8-10.6) k/uL RBC (3.80-5.40) m/uL Hgb (11.4-16.0) gm/dL Hct (34.0-46.0) % MCH (25.0-35.0) pg MCHC (31.0-37.0) g/dL RDW (11.5-15.5) % Neutrophils # (1.3-7.7) k/uL PT (9.0-12.0) sec INR (<1.2) Potassium 5.2 H (3.5-5.1) mmol/L BUN 73 H (7-17) mg/dL Creatinine 1.90 H (0.52-1.04) mg/dL Glucose 154 H (74-99) mg/dL POC Glucose (mg/dL) 129 H 214 H (75-99) mg/dL Magnesium 2.8 H (1.6-2.3) mg/dL Alkaline Phosphatase 127 H (38-126) U/L Total Creatine Kinase (30-135) U/L Total Protein (6.3-8.2) g/dL Albumin (3.5-5.0) g/dL 08/23/17 08/23/17 08/23/17 Range/Units 06:45 07:38 07:38 WBC 12.0 H (3.8-10.6) k/uL RBC 3.10 L (3.80-5.40) m/uL Hgb 7.5 L (11.4-16.0) gm/dL Hct 26.6 L (34.0-46.0) % MCH 24.2 L (25.0-35.0) pg MCHC 28.3 L (31.0-37.0) g/dL RDW 16.9 H (11.5-15.5) % Neutrophils # 9.7 H (1.3-7.7) k/uL PT (9.0-12.0) sec INR (<1.2) Potassium 5.2 H (3.5-5.1) mmol/L BUN 71 H (7-17) mg/dL Creatinine 1.81 H (0.52-1.04) mg/dL Glucose 120 H (74-99) mg/dL POC Glucose (mg/dL) 222 H (75-99) mg/dL Magnesium 2.8 H (1.6-2.3) mg/dL Alkaline Phosphatase 132 H (38-126) U/L Total Creatine Kinase (30-135) U/L Total Protein 5.9 L (6.3-8.2) g/dL Albumin 3.4 L (3.5-5.0) g/dL 08/23/17 Range/Units 11:05 WBC (3.8-10.6) k/uL RBC (3.80-5.40) m/uL Hgb (11.4-16.0) gm/dL Hct (34.0-46.0) % MCH (25.0-35.0) pg MCHC (31.0-37.0) g/dL RDW (11.5-15.5) % Neutrophils # (1.3-7.7) k/uL PT (9.0-12.0) sec INR (<1.2) Potassium (3.5-5.1) mmol/L BUN (7-17) mg/dL Creatinine (0.52-1.04) mg/dL Glucose (74-99) mg/dL POC Glucose (mg/dL) 114 H (75-99) mg/dL Magnesium (1.6-2.3) mg/dL Alkaline Phosphatase (38-126) U/L Total Creatine Kinase (30-135) U/L Total Protein (6.3-8.2) g/dL Albumin (3.5-5.0) g/dL Assessment and Plan Plan: #1 anemia with downtrending hemoglobin #2 underlying history of DVT and PE in the past maintained on Xarelto #3 underlying history of congestive heart failure #4 underlying history of paroxysmal atrial fibrillation, this was mentioned on her 2016 discharge summary #5 underlying history of diabetes mellitus #6 underlying history of COPD #7 underlying history of sleep apnea #8 underlying history of hypertension At this time we are withholding Xarelto, will monitor hemoglobin closely gastroenterology consultation was requested Patient was started on IV Protonix Will follow during this admission for medical management
[2017-08-23] MEDS ORDERED: PANTOPRAZOLE 40 MG/10 ML VIAL IVP SCH (12:15)
[2017-08-23 16:28] LABS: Iron Saturation 4.47 (12.00-45.00)
[2017-08-23 16:32] LABS: Folate, Serum 7.9 ng/mL
[2017-08-23 17:39] LABS: Glucose,Whole Blood 137 mg/dL (75-99)
[2017-08-23 20:35] LABS: Glucose,Whole Blood 131 mg/dL (75-99)
[2017-08-24] MEDS: LEVOTHYROXINE 75 MCG TAB PO SCH (06:17)
[2017-08-24 06:51] LABS: Glucose,Whole Blood 106 mg/dL (75-99)
[2017-08-24] MEDS: INSULIN ASPART 100 UNIT/ML 1 ML 10 ML VIAL SQ SCH ×4 (07:37→21:46)
[2017-08-24 07:52] LABS: Anisocytosis Slight; Basophils % (A) 0 %; Eosinophils # (A) 0.3 k/uL (0-0.7); Eosinophils % (A) 3 %; HGB 7.2 gm/dL (11.4-16.0); Hypochromasia Marked; Lymphocytes # (A) 1.3 k/uL (1.0-4.8); Lymphocytes % (A) 12 %; MCH 23.7 pg (25.0-35.0); MCHC 27.6 g/dL (31.0-37.0); MCV 85.8 fL (80.0-100.0); Mean Platelet Volume 7.9; Monocytes # (A) 0.4 k/uL (0-1.0); Monocytes % (A) 4 %; Neutrophils % (A) 79 %; Platelet Count 331 k/uL (150-450); RBC 3.03 m/uL (3.80-5.40); RDW 17.6 % (11.5-15.5); WBC 10.2 k/uL (3.8-10.6)
[2017-08-24 08:13] LABS: Albumin 3.3 g/dL (3.5-5.0); Calcium 9.1 mg/dL (8.4-10.2); Potassium 4.8 mmol/L (3.5-5.1); Total Bilirubin 0.5 mg/dL (0.2-1.3); Total Protein 5.7 g/dL (6.3-8.2)
[2017-08-24] MEDS: AMIODARONE 200 MG TAB PO SCH (08:55)
[2017-08-24] MEDS: FUROSEMIDE 40 MG TAB PO SCH (08:55)
[2017-08-24] MEDS: ATORVASTATIN 40 MG TAB PO SCH (08:55)
[2017-08-24] MEDS: SPIRONOLACTONE 25 MG TAB PO SCH (08:55)
[2017-08-24] MEDS: NEBIVOLOL 5 MG TAB PO SCH (08:55)
[2017-08-24] MEDS: PANTOPRAZOLE 40 MG/10 ML VIAL IVP SCH (08:56)
[2017-08-24] MEDS: ISOSORBIDE MONONITRATE ER 30 MG TAB.ER.24H PO SCH (08:56)
[2017-08-24] MEDS: ALBUTEROL NEBULIZED 2.5 MG/3 ML INHALATION PRN ×2 (11:03→19:40)
[2017-08-24 11:21] LABS: Glucose,Whole Blood 116 mg/dL (75-99)
--- NOTE | 2017-08-24 11:36 | P.PN ---
Subjective Progress Note Date: 08/24/17 Tamar Dominguez is a 77-year-old female who presented to [facility] emergency department for down trending hemoglobin. Patient was complaining of weakness and shortness of breath. Patient hemoglobin was 7.9, this was repeated on the day of admission and it was 7.7. Patient was on xarelto, due to history of recurrent lower extremity DVT and 1 episode of PE per patient. she does report dark stools, rectal exam was done in the emergency room and was reported as heme-negative, however sample was questionable was minimal to no amount of stool in it. Patient states that she had multiple episodes of DVT in the past, she was diagnosed once in the past with pulmonary embolism, her last DVT was 5 years ago , she has been maintained on Xarelto. Past medical history significant for congestive heart failure, lower extremity DVT, pulmonary embolism, hypertension, hyperlipidemia, diabetes mellitus and COPD, patient also has a history of sleep apnea and rheumatoid arthritis and gout. On review of systems patient is alert and oriented in no apparent distress is complaining of generalized weakness she denies any fever or chills she has some dizziness and lightheadedness, she denies any chest pain she has occasional shortness of breath with activity she denies any cough there is no palpitation no nausea or vomiting no abdominal pain no diarrhea or constipation she reports seen black tarry stools in the last few days, she denies any bright red blood per rectum, there is no urinary symptoms. 08/24/2017 patient's hemoglobin is down to 7.2. Awaiting GI evaluation. Iron level is 17 and iron saturation low at 4.47. Patient reports an ALLERGY to oral iron she developed a rash and hives. Patient has never had EGD or colonoscopy. She denies any blood in her stools or black stools. Patient reports a history of iron deficiency anemia Objective - Vital Signs Vital signs: Vital Signs Temp 97.7 F 08/24/17 07:00 Pulse 60 08/24/17 11:13 Resp 18 08/24/17 07:55 BP 116/58 08/24/17 07:00 Pulse Ox 98 08/24/17 07:00 Intake & Output 08/23/17 08/24/17 08/24/17 18:59 06:59 18:59 Intake Total 0 Balance 0 Weight 122.47 kg 122.47 kg Intake: Oral 0 Other: Voiding Method Bedpan Bedpan Bedpan # Voids 4 3 1 - Exam Head normocephalic Neck supple Lungs clear to auscultation bilaterally no wheezing or crackles Heart regular rate and rhythm S1-S2, no rub or gallop Abdomen is soft nontender nondistended positive bowel sounds no hepatosplenomegaly Extremities no edema Neuro alert and orientated to 3 - Labs CBC & Chem 7: 08/24/17 07:13 08/24/17 07:13 Labs: Abnormal Lab Results - Last 24 Hours (Table) 08/23/17 08/23/17 08/23/17 Range/Units 07:38 17:37 20:13 RBC (3.80-5.40) m/uL Hgb (11.4-16.0) gm/dL Hct (34.0-46.0) % MCH (25.0-35.0) pg MCHC (31.0-37.0) g/dL RDW (11.5-15.5) % Neutrophils # (1.3-7.7) k/uL BUN (7-17) mg/dL Creatinine (0.52-1.04) mg/dL Glucose (74-99) mg/dL POC Glucose (mg/dL) 137 H 131 H (75-99) mg/dL Iron 17 L (50-170) ug/dL Iron Saturation 4.47 L (12.00-45.00) Alkaline Phosphatase (38-126) U/L Total Protein (6.3-8.2) g/dL Albumin (3.5-5.0) g/dL 08/24/17 08/24/17 08/24/17 Range/Units 06:49 07:13 07:13 RBC 3.03 L (3.80-5.40) m/uL Hgb 7.2 L (11.4-16.0) gm/dL Hct 26.0 L (34.0-46.0) % MCH 23.7 L (25.0-35.0) pg MCHC 27.6 L (31.0-37.0) g/dL RDW 17.6 H (11.5-15.5) % Neutrophils # 8.0 H (1.3-7.7) k/uL BUN 61 H (7-17) mg/dL Creatinine 1.60 H (0.52-1.04) mg/dL Glucose 100 H (74-99) mg/dL POC Glucose (mg/dL) 106 H (75-99) mg/dL Iron (50-170) ug/dL Iron Saturation (12.00-45.00) Alkaline Phosphatase 133 H (38-126) U/L Total Protein 5.7 L (6.3-8.2) g/dL Albumin 3.3 L (3.5-5.0) g/dL 08/24/17 Range/Units 11:19 RBC (3.80-5.40) m/uL Hgb (11.4-16.0) gm/dL Hct (34.0-46.0) % MCH (25.0-35.0) pg MCHC (31.0-37.0) g/dL RDW (11.5-15.5) % Neutrophils # (1.3-7.7) k/uL BUN (7-17) mg/dL Creatinine (0.52-1.04) mg/dL Glucose (74-99) mg/dL POC Glucose (mg/dL) 116 H (75-99) mg/dL Iron (50-170) ug/dL Iron Saturation (12.00-45.00) Alkaline Phosphatase (38-126) U/L Total Protein (6.3-8.2) g/dL Albumin (3.5-5.0) g/dL Assessment and Plan Assessment: #1 anemia with evidence of iron deficiency anemia: Iron level 17 iron saturation 4.47. Hemoglobin 7.2. GI service consulted for anemia workup. Xarelto on hold. Continue IV Protonix. Stool for occult blood negative. B 12 level normal and folate level normal #2 underlying history of DVT and PE in the past maintained on Xarelto #3 underlying history of congestive heart failure #4 underlying history of paroxysmal atrial fibrillation, this was mentioned on her 2016 discharge summary #5 underlying history of diabetes mellitus #6 underlying history of COPD #7 underlying history of sleep apnea #8 underlying history of hypertension #9 acute on chronic kidney disease, stage III. Creatinine down from 1.8-1.6. Patient is currently nothing by mouth. Place her on IV fluids normal saline at 50 I performed an examination of the patient and discussed their management with the physician Traffic Engineering Technician. I have reviewed the Physician Traffic Engineering Technician's notes and agree with the documented findings and plan of care
[2017-08-24] MEDS: SODIUM CHLORIDE 0.9% 1,000 ML IV SCH (12:46)
--- NOTE | 2017-08-24 16:27 | CONS ---
CONSULTATION DATE OF CONSULTATION: 08/24/17 REQUESTING PHYSICIAN: Dr. Oliver. REASON FOR CONSULTATION: Black tarry stools, anemia. HISTORY OF PRESENT ILLNESS: The patient is a 77 -year-old pleasant white female admitted to the hospital with black tarry stools for the last few days duration. She also dropped hemoglobin from 7.9-7.2 g/dL. The patient states that she has been having intermittent nosebleeds. She denies any abdominal pain. Reports no nausea, vomiting. She has a history of atrial fibrillation and is on Xarelto which has been on hold since yesterday morning. The patient has history of recurrent DVT and hence has been on Xarelto which has been on hold since yesterday. She denies any prior history of peptic ulcer disease or recent NSAID use. PAST MEDICAL HISTORY: Significant for congestive heart failure, DVT, pulmonary embolism, hypertension, hyperlipidemia, diabetes mellitus, COPD, degenerative joint disease, sleep apnea. MEDICATIONS: At home, , omeprazole, Lasix, Humalog, Antivert, Zyloprim, Lipitor, Xarelto, Synthroid, Imdur, Augmentin, Bystolic, spironolactone. ALLERGIES: TO IRON, SULFA, TETANUS VACCINE. PAST SURGICAL HISTORY: Hysterectomy, cardiac cath, right knee replacement. She is post bilateral cataract surgery, cystoscopy, colonoscopy 4 years ago. SOCIAL HISTORY: Former smoker. No alcohol use. FAMILY HISTORY: Unremarkable. REVIEW OF SYSTEMS: Cardiopulmonary: She denies any chest pain, shortness of breath. Genitourinary: No dysuria or hematuria. Musculoskeletal: unremarkable other than chronic back pain. Skin unremarkable. Endocrine unremarkable. Psychiatric unremarkable. Neurology unremarkable. ENT vision unremarkable. Constitutional: No recent weight loss. No fever, chills, night sweats. Hematology, anemia. PHYSICAL EXAMINATION: She appears comfortable in no apparent distress. Vital signs stable. Blood pressure is 116/58, pulse rate 55, temperature 97.7. HEENT examination unremarkable. Conjunctivae pink. Sclerae anicteric. Oral cavity no lesions. Neck no jugular venous distention or lymph node enlargement. Chest was clear to auscultation. HEART: Regular rate and rhythm. ABDOMEN: Soft, it was obese. Bowel sounds are positive. No organomegaly. Extremities: No pedal edema. Skin no rashes. NEUROLOGIC: Alert and oriented x3. No focal deficits. LABS: From yesterday, WBC 13.7, hemoglobin 7.7, platelets are 390. Today, hemoglobin is 7.2. BUN is 61, creatinine 1.60. ALT, AST, T bilirubin, alkaline phosphatase are normal. The INR is 1.3. IMPRESSION: 1. This is a patient with history of deep vein thrombosis in the past on Xarelto, presents to the hospital with black tarry stools on and off for the last few days duration. Hemoglobin of 7.2 g/dL. Clinically, she remains stable. No active ongoing bleeding. She dropped hemoglobin from 7.7 to 7.2 g/dL in the last 24 hours. 2. History of deep vein thrombosis/physical examination on Xarelto which is on hold since yesterday. 3. History of congestive heart failure. 4. Morbid obesity. RECOMMENDATIONS: 1. Continue with Protonix 40 mg daily. 2. CBC in the morning. 3. Proceed with an upper endoscopy tomorrow. Discussed with the patient benefits and complications and she is agreeable to it. Thank you for this consultation. MMODL / IJN: [id number] /
[2017-08-24 17:00] LABS: Glucose,Whole Blood 171 mg/dL (75-99)
[2017-08-24 20:14] LABS: Glucose,Whole Blood 223 mg/dL (75-99)
[2017-08-25] MEDS: LEVOTHYROXINE 75 MCG TAB PO SCH (06:12)
[2017-08-25] MEDS ORDERED: PROPOFOL 10 MG/ML 20 ML VIAL IV ONE (07:25)
[2017-08-25] MEDS ORDERED: IV FLUID CONTINUATION 200 ML IV ONE (07:33)
--- NOTE | 2017-08-25 07:44 | P.PCN ---
Date of Procedure: 08/25/17 Procedure(s) Performed: BRIEF HISTORY: Patient is a 77-year-old, pleasant, female, scheduled for an upper endoscopy as a part of evaluation of black tarry stools for the last 2 days' duration. She dropped hemoglobin to 7.2 g/dL. She is hence scheduled for an upper endoscopy to evaluate further. PROCEDURE PERFORMED: Esophagogastroduodenoscopy with biopsy. PREOPERATIVE DIAGNOSIS: Melena of 2 days' duration and anemia. IV sedation per anesthesia. PROCEDURE: After informed consent was obtained, the patient was brought into the endoscopy unit. IV sedation was administered by Anesthesia under continuous monitoring. Initially the Olympus GIF-140 video endoscope was inserted into the mouth. Esophagus intubated without any difficulty. It was gradually advanced into the stomach and duodenum and carefully examined. The bulb and the second part of the duodenum appeared normal. The scope at this time was withdrawn to the stomach, adequately insufflated with air, and upon careful examination, mucosa of the antrum, had scattered erosions consistent with gastritis but no active bleeding. Biopsies were done from this area. The body, cardia and the fundus appeared normal. The scope was then withdrawn into the esophagus. The GE junction was located at 39 cm from the incisors. The esophagus appeared normal. There were no erosions or ulcerations seen and the patient tolerated the procedure well. IMPRESSION: 1. Antral erosive gastritis with no active bleeding. 2. No evidence of esophagitis or peptic ulcer. RECOMMENDATIONS: The findings of this examination were discussed with the patient . Continue with Protonix 40 mg daily. Advance diet as tolerated..
[2017-08-25] MEDS: NEBIVOLOL 5 MG TAB PO SCH (08:17)
[2017-08-25] MEDS: SPIRONOLACTONE 25 MG TAB PO SCH (08:17)
[2017-08-25] MEDS: ISOSORBIDE MONONITRATE ER 30 MG TAB.ER.24H PO SCH (08:17)
[2017-08-25] MEDS: ATORVASTATIN 40 MG TAB PO SCH (08:17)
[2017-08-25] MEDS: FUROSEMIDE 40 MG TAB PO SCH (08:17)
[2017-08-25] MEDS: AMIODARONE 200 MG TAB PO SCH (08:17)
[2017-08-25 08:33] LABS: Anisocytosis Slight; Basophils % (A) 0 %; Eosinophils # (A) 0.3 k/uL (0-0.7); Eosinophils % (A) 3 %; HCT 25.6 % (34.0-46.0); HGB 7.1 gm/dL (11.4-16.0); Hypochromasia Marked; Lymphocytes # (A) 1.4 k/uL (1.0-4.8); Lymphocytes % (A) 13 %; MCH 23.8 pg (25.0-35.0); MCHC 27.8 g/dL (31.0-37.0); MCV 85.6 fL (80.0-100.0); Mean Platelet Volume 8.6; Monocytes # (A) 0.6 k/uL (0-1.0); Monocytes % (A) 6 %; Neutrophils # (A) 8.1 k/uL (1.3-7.7); Neutrophils % (A) 77 %; Platelet Count 327 k/uL (150-450); RBC 2.99 m/uL (3.80-5.40); RDW 17.7 % (11.5-15.5); WBC 10.6 k/uL (3.8-10.6)
[2017-08-25 08:48] LABS: Glucose,Whole Blood 117 mg/dL (75-99)
[2017-08-25 08:49] LABS: Albumin 3.5 g/dL (3.5-5.0); Calcium 9.1 mg/dL (8.4-10.2); Potassium 4.4 mmol/L (3.5-5.1); Total Bilirubin 0.6 mg/dL (0.2-1.3); Total Protein 5.9 g/dL (6.3-8.2)
[2017-08-25] MEDS: INSULIN ASPART 100 UNIT/ML 1 ML 10 ML VIAL SQ SCH ×4 (09:18→21:03)
--- NOTE | 2017-08-25 09:26 | CDI ---
Last Revision, May 2017 Documentation Clarification Form Date: 08/25/17 0921 From: Yanet Mcguire RN, CCDS Admit Date: 08/23/2017 9:04:00 AM Patient Name: Tamar Dominguez Visit Number: [id number] ATTENTION: The Clinical Documentation Specialists (CDI) and [facility] Coding Staff appreciate your assistance in clarifying documentation. Please respond to the clarification below the line at the bottom and electronically sign. The CDI & [facility] Coding staff will review the response and follow-up if needed. Please note: Queries are made part of the Legal Health Record. If you have any questions, please contact the author of this message via ITS. Dr. Michel Oliver/ Jeanne REYES History/Risk Factors: CHF, A/C CKD Stage 3, HTN, COPD, DM, PAF, DVT/PE Clinical Indicators: VS/Pulse OX: Temp 98, hr 57, hr 20, B/P 110/61, spo2 98% ra BNP: not done Echocardiogram Results:01/20/17 EF 60-65% Chest X Ray: "Chronic changes and cardiomegaly without acute pulmonary process. " Treatment: Lasix 40 mg PO QD In your professional opinion, can you please clarify the acuity and type of CHF if known? Chronic Systolic Heart Failure Chronic Diastolic Heart Failure Chronic Systolic & Diastolic Heart Failure Unable to Determine Other, please specify Please continue to document in your progress notes and discharge summary in order to capture severity of illness and risk of mortality. Include clinical findings that support your diagnosis. MTDD
[2017-08-25 11:53] LABS: Glucose,Whole Blood 154 mg/dL (75-99)
[2017-08-25] MEDS: ALBUTEROL NEBULIZED 2.5 MG/3 ML INHALATION SCH ×3 (12:43→19:31)
[2017-08-25] MEDS ORDERED: FUROSEMIDE 10 MG/ML 2 ML VIAL IV ONE (12:45)
--- NOTE | 2017-08-25 12:56 | P.PN ---
Subjective Progress Note Date: 08/25/17 Tamar Dominguez is a 77-year-old female who presented to [facility] emergency department for down trending hemoglobin. Patient was complaining of weakness and shortness of breath. Patient hemoglobin was 7.9, this was repeated on the day of admission and it was 7.7. Patient was on xarelto, due to history of recurrent lower extremity DVT and 1 episode of PE per patient. she does report dark stools, rectal exam was done in the emergency room and was reported as heme-negative, however sample was questionable was minimal to no amount of stool in it. Patient states that she had multiple episodes of DVT in the past, she was diagnosed once in the past with pulmonary embolism, her last DVT was 5 years ago , she has been maintained on Xarelto. Past medical history significant for congestive heart failure, lower extremity DVT, pulmonary embolism, hypertension, hyperlipidemia, diabetes mellitus and COPD, patient also has a history of sleep apnea and rheumatoid arthritis and gout. On review of systems patient is alert and oriented in no apparent distress is complaining of generalized weakness she denies any fever or chills she has some dizziness and lightheadedness, she denies any chest pain she has occasional shortness of breath with activity she denies any cough there is no palpitation no nausea or vomiting no abdominal pain no diarrhea or constipation she reports seen black tarry stools in the last few days, she denies any bright red blood per rectum, there is no urinary symptoms. 08/24/2017 patient's hemoglobin is down to 7.2. Awaiting GI evaluation. Iron level is 17 and iron saturation low at 4.47. Patient reports an ALLERGY to oral iron she developed a rash and hives. Patient has never had EGD or colonoscopy. She denies any blood in her stools or black stools. Patient reports a history of iron deficiency anemia 08/25/2017 patient underwent EGD showing antral erosive gastritis no bleeding. Diet has been advanced and tolerating. Her hemoglobin is down to 7.1. Patient cannot tolerate iron due to ALLERGY. She will receive 1 unit of blood. She is short of breath and having some wheezing. Fluids were hep-locked. Nebulizers were changed to 4 times a day scheduled and set up as needed. Chest x-ray will be ordered. Patient will receive 1 unit of blood with Lasix. Objective - Vital Signs Vital signs: Vital Signs Temp 98.0 F 08/25/17 07:00 Pulse 60 08/25/17 12:43 Resp 22 08/25/17 08:00 BP 108/59 08/25/17 07:00 Pulse Ox 91 L 08/25/17 07:00 Intake & Output 08/24/17 08/25/17 08/25/17 18:59 06:59 18:59 Intake Total 400 25 Balance 400 25 Weight 122.47 kg 122.47 kg Intake: IV 25 Intake, IV Titration 400 Amount Sodium Chloride 0.9% 1, 400 000 ml @ 50 mls/hr IV . Q20H [facility] Rx#:[id number] Other: Voiding Method Bedpan Bedside Commode Bedside Commode Bedpan Bedpan # Voids 1 1 1 # Bowel Movements 1 - Exam Head normocephalic Neck supple Lungs wheezing bilaterally Heart regular rate and rhythm S1-S2, no rub or gallop Abdomen is soft nontender nondistended positive bowel sounds no hepatosplenomegaly Extremities no edema Neuro alert and orientated to 3 - Labs CBC & Chem 7: 08/25/17 08:12 08/25/17 08:12 Labs: Abnormal Lab Results - Last 24 Hours (Table) 08/24/17 08/24/17 08/25/17 Range/Units 16:57 20:13 08:12 RBC 2.99 L (3.80-5.40) m/uL Hgb 7.1 L (11.4-16.0) gm/dL Hct 25.6 L (34.0-46.0) % MCH 23.8 L (25.0-35.0) pg MCHC 27.8 L (31.0-37.0) g/dL RDW 17.7 H (11.5-15.5) % Neutrophils # 8.1 H (1.3-7.7) k/uL BUN (7-17) mg/dL Creatinine (0.52-1.04) mg/dL Glucose (74-99) mg/dL POC Glucose (mg/dL) 171 H 223 H (75-99) mg/dL Total Protein (6.3-8.2) g/dL 08/25/17 08/25/17 08/25/17 Range/Units 08:12 08:40 11:44 RBC (3.80-5.40) m/uL Hgb (11.4-16.0) gm/dL Hct (34.0-46.0) % MCH (25.0-35.0) pg MCHC (31.0-37.0) g/dL RDW (11.5-15.5) % Neutrophils # (1.3-7.7) k/uL BUN 53 H (7-17) mg/dL Creatinine 1.40 H (0.52-1.04) mg/dL Glucose 108 H (74-99) mg/dL POC Glucose (mg/dL) 117 H 154 H (75-99) mg/dL Total Protein 5.9 L (6.3-8.2) g/dL Assessment and Plan Assessment: #1 anemia likely secondary to antral erosive gastritis and iron deficiency: Iron level 17 iron saturation 4.47. Hemoglobin 7.1. Xarelto on hold. Continue Protonix. Stool for occult blood negative. B 12 level normal and folate level normal. Status post EGD revealing antral erosive gastritis no active bleeding. Continue Protonix. Tolerating advancement of diet. HGB 7.1. Since patient did not tolerate iron will give 1 unit of blood. Lasix 20 mg IV push after blood transfusion. #2 underlying history of DVT and PE in the past maintained on Xarelto #3 underlying history of chronic diastolic congestive heart failure #4 underlying history of paroxysmal atrial fibrillation, this was mentioned on her 2016 discharge summary #5 underlying history of diabetes mellitus #6 underlying history of COPD #7 underlying history of sleep apnea #8 underlying history of hypertension #9 acute on chronic kidney disease, stage III. Creatinine down to 1.4. Fluids hep-locked. #10 wheezing and shortness of breath with known COPD history. Change ambulate surgery treatments to scheduled 4 times a day and check chest x-ray Add SCDs for DVT prophylaxis I performed an examination of the patient and discussed their management with the physician Surgeon Chief. I have reviewed the Physician Surgeon Chief's notes and agree with the documented findings and plan of care
--- NOTE | 2017-08-25 15:32 | XR ---
EXAMINATION TYPE: XR chest 2V DATE OF EXAM: 08/25/2017 COMPARISON: 08/22/2017 HISTORY: Shortness of breath TECHNIQUE: Frontal and lateral views of the chest are obtained. FINDINGS: Scattered senescent parenchymal changes noted. Hyperinflation compatible with COPD. Increased density at the lung bases may reflect atelectasis or developing infiltrates. Heart size is stable. Mediastinal structures are stable and grossly unremarkable. No evidence for hilar prominence. Degenerative changes dorsal spine. IMPRESSION: 1. Increased density at the lung bases may reflect atelectasis or developing infiltrates.
[2017-08-25 17:25] LABS: Glucose,Whole Blood 214 mg/dL (75-99)
[2017-08-25] MEDS: SODIUM CHLORIDE 0.9% 1,000 ML IV SCH (18:05)
[2017-08-25 20:27] LABS: Glucose,Whole Blood 217 mg/dL (75-99)
[2017-08-26] MEDS: ALBUTEROL NEBULIZED 2.5 MG/3 ML INHALATION SCH ×6 (00:41→20:45)
[2017-08-26] MEDS: LEVOTHYROXINE 75 MCG TAB PO SCH (06:11)
[2017-08-26 07:27] LABS: Glucose,Whole Blood 147 mg/dL (75-99)
[2017-08-26] MEDS: INSULIN ASPART 100 UNIT/ML 1 ML 10 ML VIAL SQ SCH ×4 (09:01→21:34)
[2017-08-26] MEDS: FUROSEMIDE 40 MG TAB PO SCH (09:02)
[2017-08-26] MEDS: PANTOPRAZOLE 40 MG TABLET PO SCH (09:02)
[2017-08-26] MEDS: ISOSORBIDE MONONITRATE ER 30 MG TAB.ER.24H PO SCH (09:02)
[2017-08-26] MEDS: AMIODARONE 200 MG TAB PO SCH (09:02)
[2017-08-26] MEDS: ATORVASTATIN 40 MG TAB PO SCH (09:02)
[2017-08-26] MEDS: NEBIVOLOL 5 MG TAB PO SCH (09:02)
[2017-08-26] MEDS: SPIRONOLACTONE 25 MG TAB PO SCH (09:03)
[2017-08-26 09:37] LABS: Albumin 3.6 g/dL (3.5-5.0); Potassium 4.6 mmol/L (3.5-5.1); Total Bilirubin 0.6 mg/dL (0.2-1.3)
[2017-08-26 09:46] LABS: Anisocytosis Slight; Basophils % (A) 0 %; Eosinophils # (A) 0.1 k/uL (0-0.7); Eosinophils % (A) 1 %; HCT 29.1 % (34.0-46.0); HGB 8.3 gm/dL (11.4-16.0); Hypochromasia Marked; Lymphocytes % (A) 10 %; MCH 24.5 pg (25.0-35.0); MCHC 28.3 g/dL (31.0-37.0); MCV 86.5 fL (80.0-100.0); Mean Platelet Volume 7.4; Monocytes # (A) 0.5 k/uL (0-1.0); Monocytes % (A) 5 %; Neutrophils # (A) 8.3 k/uL (1.3-7.7); Neutrophils % (A) 82 %; Platelet Count 348 k/uL (150-450); Poikilocytosis Moderate; RBC 3.37 m/uL (3.80-5.40); WBC 10.1 k/uL (3.8-10.6)
[2017-08-26 11:52] LABS: Glucose,Whole Blood 271 mg/dL (75-99)
--- NOTE | 2017-08-26 12:01 | P.PN ---
Subjective Tamar Dominguez is a 77-year-old female who presented to [facility] emergency department for down trending hemoglobin. Patient was complaining of weakness and shortness of breath. Patient hemoglobin was 7.9, this was repeated on the day of admission and it was 7.7. Patient was on xarelto, due to history of recurrent lower extremity DVT and 1 episode of PE per patient. she does report dark stools, rectal exam was done in the emergency room and was reported as heme-negative, however sample was questionable was minimal to no amount of stool in it. Patient states that she had multiple episodes of DVT in the past, she was diagnosed once in the past with pulmonary embolism, her last DVT was 5 years ago , she has been maintained on Xarelto. Past medical history significant for congestive heart failure, lower extremity DVT, pulmonary embolism, hypertension, hyperlipidemia, diabetes mellitus and COPD, patient also has a history of sleep apnea and rheumatoid arthritis and gout. On review of systems patient is alert and oriented in no apparent distress is complaining of generalized weakness she denies any fever or chills she has some dizziness and lightheadedness, she denies any chest pain she has occasional shortness of breath with activity she denies any cough there is no palpitation no nausea or vomiting no abdominal pain no diarrhea or constipation she reports seen black tarry stools in the last few days, she denies any bright red blood per rectum, there is no urinary symptoms. 08/24/2017 patient's hemoglobin is down to 7.2. Awaiting GI evaluation. Iron level is 17 and iron saturation low at 4.47. Patient reports an ALLERGY to oral iron she developed a rash and hives. Patient has never had EGD or colonoscopy. She denies any blood in her stools or black stools. Patient reports a history of iron deficiency anemia 08/25/2017 patient underwent EGD showing antral erosive gastritis no bleeding. Diet has been advanced and tolerating. Her hemoglobin is down to 7.1. Patient cannot tolerate iron due to ALLERGY. She will receive 1 unit of blood. She is short of breath and having some wheezing. Fluids were hep-locked. Nebulizers were changed to 4 times a day scheduled and set up as needed. Chest x-ray will be ordered. Patient will receive 1 unit of blood with Lasix. 08/26/2017 patient underwent EGD showing antral erosive gastritis no bleeding. Diet has been advanced and tolerating. Her hemoglobin was down to 7.1. Patient cannot tolerate iron due to ALLERGY. She received 1 unit of blood. Hgb up to 8.3 post trsnfusion She is short of breath and having some wheezing. Fluids were hep-locked. Nebulizers were changed to 4 times a day scheduled and set up as needed. Chest x-ray will be ordered. Patient will receive 1 unit of blood with Lasix. Bilateral lower extremities swelling and erythema with draining ulcer on the lateral side of right lower extremity, add IV Ancef consult Dr Yap. Objective - Vital Signs Vital signs: Vital Signs Temp 98.5 F 08/26/17 07:00 Pulse 68 08/26/17 08:53 Resp 18 08/26/17 07:00 BP 142/60 08/26/17 07:00 Pulse Ox 99 08/26/17 07:00 Intake & Output 08/25/17 08/26/17 08/26/17 18:59 06:59 18:59 Intake Total 335 120 Balance 335 120 Weight 122.47 kg 127 kg Intake: IV 25 Oral 120 Blood Product 310 Rc As-1 Unit 310 [id number] Other: Voiding Method Bedside Commode Bedside Commode Bedpan Bedpan # Voids 1 5 # Bowel Movements 1 - Exam In general patient is alert and oriented 3 in no apparent distress HEENT head normocephalic and atraumatic Neck is supple no JVD no goiter no lymphadenopathy Chest exam reveals a few scattered crackles no wheezing Cardiac exam reveals regular heart sounds no gallops no murmurs Abdomen is soft nontender no organomegaly Extremity exam reveals mild edema, there is erythema extending from below the knee down to the feet area bilaterally Neurological exam reveals no focal deficit - Labs CBC & Chem 7: 08/26/17 08:50 08/26/17 08:50 Labs: Abnormal Lab Results - Last 24 Hours (Table) 08/25/17 08/25/17 08/25/17 Range/Units 13:05 17:23 20:25 RBC (3.80-5.40) m/uL Hgb (11.4-16.0) gm/dL Hct (34.0-46.0) % MCH (25.0-35.0) pg MCHC (31.0-37.0) g/dL RDW (11.5-15.5) % Neutrophils # (1.3-7.7) k/uL BUN (7-17) mg/dL Creatinine (0.52-1.04) mg/dL Glucose (74-99) mg/dL POC Glucose (mg/dL) 214 H 217 H (75-99) mg/dL Total Protein (6.3-8.2) g/dL Crossmatch See Detail 08/26/17 08/26/17 08/26/17 Range/Units 07:20 08:50 08:50 RBC 3.37 L (3.80-5.40) m/uL Hgb 8.3 L (11.4-16.0) gm/dL Hct 29.1 L (34.0-46.0) % MCH 24.5 L (25.0-35.0) pg MCHC 28.3 L (31.0-37.0) g/dL RDW 17.0 H (11.5-15.5) % Neutrophils # 8.3 H (1.3-7.7) k/uL BUN 50 H (7-17) mg/dL Creatinine 1.73 H (0.52-1.04) mg/dL Glucose 224 H (74-99) mg/dL POC Glucose (mg/dL) 147 H (75-99) mg/dL Total Protein 6.0 L (6.3-8.2) g/dL Crossmatch 08/26/17 Range/Units 11:36 RBC (3.80-5.40) m/uL Hgb (11.4-16.0) gm/dL Hct (34.0-46.0) % MCH (25.0-35.0) pg MCHC (31.0-37.0) g/dL RDW (11.5-15.5) % Neutrophils # (1.3-7.7) k/uL BUN (7-17) mg/dL Creatinine (0.52-1.04) mg/dL Glucose (74-99) mg/dL POC Glucose (mg/dL) 271 H (75-99) mg/dL Total Protein (6.3-8.2) g/dL Crossmatch Assessment and Plan Plan: #1 anemia likely secondary to antral erosive gastritis and iron deficiency: Iron level 17 iron saturation 4.47. Hemoglobin 7.1. Xarelto on hold. Continue Protonix. Stool for occult blood negative. B 12 level normal and folate level normal. Status post EGD revealing antral erosive gastritis no active bleeding. Continue Protonix. Tolerating advancement of diet. HGB 7.1. Since patient did not tolerate iron will give 1 unit of blood. Lasix 20 mg IV push after blood transfusion. #2 underlying history of DVT and PE in the past maintained on Xarelto #3 underlying history of chronic diastolic congestive heart failure #4 underlying history of paroxysmal atrial fibrillation, this was mentioned on her 2016 discharge summary #5 underlying history of diabetes mellitus #6 underlying history of COPD #7 underlying history of sleep apnea #8 underlying history of hypertension #9 acute on chronic kidney disease, stage III. Creatinine down to 1.4. Fluids hep-locked. #10 wheezing and shortness of breath with known COPD history. Change ambulate surgery treatments to scheduled 4 times a day and check chest x-ray #11 Bilateral lower extremities cellulitis add ancef consult Dr Yap #12 Bibisialar densities on CXR Atelectasis Vs infilrates, add incentive spirometry, check CXR in am Add SCDs for DVT prophylaxis
[2017-08-26] MEDS: ceFAZolin IN SWFI 2 GM/20 ML SYRINGE IVP SCH ×2 (13:53→21:33)
[2017-08-26 17:22] LABS: Glucose,Whole Blood 134 mg/dL (75-99)
[2017-08-26 21:01] LABS: Glucose,Whole Blood 187 mg/dL (75-99)
--- NOTE | 2017-08-26 22:53 | CONS ---
CONSULTATION DATE OF SERVICE: 08/26/2017. REASON FOR CONSULTATION: Right foot wound and cellulitis. HISTORY OF PRESENT ILLNESS: The patient is a 77-year-old female who presented to the ER at [facility] on 08/22/2017 apparently with trending hemoglobin. The patient has been on Xarelto. She was noticed to have dark stools complaining of generalized weakness and dyspnea. The patient subsequently has been admitted hospital and has been evaluated by Gastroenterology. She did have an EGD that did show evidence of gastritis and no active bleeding. The patient did have chronic swelling in both legs from her history of DVT. The patient was noticed to have a draining ulcer to the right leg with swelling and redness with concern for underlying cellulitis, cefepime was added and ID was consulted for further recommendation of antibiotic therapy. The patient has been afebrile throughout her hospital stay. She did have chronic swelling of the legs. Denies any recent worsening though she did have some dull aching pain to the leg area bilaterally 2 to 3/10, and no radiation. The patient denies having any chest pain, some shortness of breath. No nausea, no vomiting. No abdominal pain. No further hematochezia. REVIEW OF SYSTEMS: Constitutional: Positive for weakness. No high-grade fever. Eyes: No complaint. ENT no complaint. Respiratory some shortness of breath. No cough. Cardiovascular no complaint. Genitourinary no complaint. GASTROINTESTINAL: As per HPI. Musculoskeletal no complaint. Integumentary: as per HPI. PSYCHOLOGICAL: No complaint. Endocrine no complaint. Neurologic no complaint. PAST MEDICAL HISTORY: Significant for congestive heart failure, recurrent DVT, pulmonary embolism, hypertension, hyperlipidemia, diabetes mellitus, COPD, sleep apnea. PAST SURGICAL HISTORY: Right knee replacement, heart catheterization, bilateral cataract surgery, cystoscopy, colonoscopy hysterectomy. SOCIAL HISTORY: Remote history of smoking. No drinking or drug use. FAMILY HISTORY: No pertinent findings noticed. ALLERGIES: TO SULFA, TETANUS VACCINE AND IRON. MEDICATIONS: Current medications include the patient is currently on Ventolin, amiodarone, Lipitor, cefazolin 2 g q.8h. She is on Lasix, NovoLog, Imdur, Synthroid, Narcan, Protonix, Aldactone. PHYSICAL EXAMINATION: On examination, blood pressure is 114/57 with a pulse of 64, temperature of 98.3, she is 96% on 2 L cannula. General description is an elderly female, lying in bed in no distress. No tachypnea or accessory muscles of respiration use. HEENT examination shows slight pallor. No scleral icterus. Oral mucosal membranes dry. Neck trachea central. No thyromegaly. Lungs unlabored breathing. Clear to auscultation anteriorly. No wheeze or crackles. Heart S1, S2 regular rate and rhythm. Abdomen soft. No tenderness. No guarding or rigidity. Extremities: Bilateral legs do have swelling 3+ pitting edema. Very minimal redness and no significant drainage was noticed. No evidence of athlete's foot. Neurological patient is awake, alert, oriented x3. Mood and affect normal. LABS: Hemoglobin 8.3, white count of 10.1, BUN of 15, creatinine 1.73. Electrolytes have been normal. Liver enzymes are normal. No cultures during this admission. DIAGNOSTIC IMPRESSION AND PLAN: Patient with a history of recurrent deep vein thrombosis with and chronic swelling in the legs with diffuse swelling, no significant erythema was noticed. Examination with wound concern for possible skin cellulitis less likely but not entirely excluded. PLAN: 1. May continue short course of antibiotic in the form of cefazolin to cover for gram- positive skin ayesha. 2. Light Myles wrap to keep some of the swelling down. This should help with possible vasculitis as well. 3. We will follow up on clinical condition and further adjust medication if needed. Thank you for this consultation. Will follow this patient along with you. MMODL / IJN: [id number] /
[2017-08-27] MEDS: ALBUTEROL NEBULIZED 2.5 MG/3 ML INHALATION SCH ×6 (04:32→19:03)
[2017-08-27] MEDS: ceFAZolin IN SWFI 2 GM/20 ML SYRINGE IVP SCH ×3 (05:05→21:16)
[2017-08-27] MEDS: LEVOTHYROXINE 75 MCG TAB PO SCH (05:32)
[2017-08-27 07:11] LABS: Glucose,Whole Blood 129 mg/dL (75-99)
[2017-08-27 07:54] LABS: Anisocytosis Slight; Basophils % (A) 0 %; Eosinophils # (A) 0.2 k/uL (0-0.7); Eosinophils % (A) 3 %; HCT 28.2 % (34.0-46.0); HGB 7.8 gm/dL (11.4-16.0); Hypochromasia Marked; Lymphocytes % (A) 13 %; MCH 23.7 pg (25.0-35.0); MCHC 27.8 g/dL (31.0-37.0); MCV 85.2 fL (80.0-100.0); Mean Platelet Volume 7.5; Monocytes # (A) 0.5 k/uL (0-1.0); Monocytes % (A) 6 %; Neutrophils # (A) 6.1 k/uL (1.3-7.7); Neutrophils % (A) 76 %; Platelet Count 312 k/uL (150-450); Poikilocytosis Slight; RBC 3.31 m/uL (3.80-5.40); RDW 17.6 % (11.5-15.5)
[2017-08-27 08:09] LABS: Albumin 3.6 g/dL (3.5-5.0); Potassium 4.7 mmol/L (3.5-5.1); Total Bilirubin 0.4 mg/dL (0.2-1.3); Total Protein 6.1 g/dL (6.3-8.2)
[2017-08-27] MEDS: SPIRONOLACTONE 25 MG TAB PO SCH (08:58)
[2017-08-27] MEDS: PANTOPRAZOLE 40 MG TABLET PO SCH (08:58)
[2017-08-27] MEDS: AMIODARONE 200 MG TAB PO SCH (08:58)
[2017-08-27] MEDS: ISOSORBIDE MONONITRATE ER 30 MG TAB.ER.24H PO SCH (08:58)
[2017-08-27] MEDS: FUROSEMIDE 40 MG TAB PO SCH (08:58)
[2017-08-27] MEDS: INSULIN ASPART 100 UNIT/ML 1 ML 10 ML VIAL SQ SCH ×4 (08:58→21:16)
[2017-08-27] MEDS: NEBIVOLOL 5 MG TAB PO SCH (08:58)
[2017-08-27 11:55] LABS: Glucose,Whole Blood 137 mg/dL (75-99)
[2017-08-27] MEDS ORDERED: FUROSEMIDE 10 MG/ML 2 ML VIAL IV ONE (12:41)
--- NOTE | 2017-08-27 12:52 | P.PN ---
Subjective Progress Note Date: 08/27/17 Tamar Dominguez is a 77-year-old female who presented to [facility] emergency department for down trending hemoglobin. Patient was complaining of weakness and shortness of breath. Patient hemoglobin was 7.9, this was repeated on the day of admission and it was 7.7. Patient was on xarelto, due to history of recurrent lower extremity DVT and 1 episode of PE per patient. she does report dark stools, rectal exam was done in the emergency room and was reported as heme-negative, however sample was questionable was minimal to no amount of stool in it. Patient states that she had multiple episodes of DVT in the past, she was diagnosed once in the past with pulmonary embolism, her last DVT was 5 years ago , she has been maintained on Xarelto. Past medical history significant for congestive heart failure, lower extremity DVT, pulmonary embolism, hypertension, hyperlipidemia, diabetes mellitus and COPD, patient also has a history of sleep apnea and rheumatoid arthritis and gout. On review of systems patient is alert and oriented in no apparent distress is complaining of generalized weakness she denies any fever or chills she has some dizziness and lightheadedness, she denies any chest pain she has occasional shortness of breath with activity she denies any cough there is no palpitation no nausea or vomiting no abdominal pain no diarrhea or constipation she reports seen black tarry stools in the last few days, she denies any bright red blood per rectum, there is no urinary symptoms. 08/24/2017 patient's hemoglobin is down to 7.2. Awaiting GI evaluation. Iron level is 17 and iron saturation low at 4.47. Patient reports an ALLERGY to oral iron she developed a rash and hives. Patient has never had EGD or colonoscopy. She denies any blood in her stools or black stools. Patient reports a history of iron deficiency anemia 08/25/2017 patient underwent EGD showing antral erosive gastritis no bleeding. Diet has been advanced and tolerating. Her hemoglobin is down to 7.1. Patient cannot tolerate iron due to ALLERGY. She will receive 1 unit of blood. She is short of breath and having some wheezing. Fluids were hep-locked. Nebulizers were changed to 4 times a day scheduled and set up as needed. Chest x-ray will be ordered. Patient will receive 1 unit of blood with Lasix. 08/27/2017 patient has been having episodes of hypotension during the evening. She had a rise in her liver enzymes. No abdominal pain reported. Hemoglobin is 7.8. No blood in his stools. She has some mild cheilitis the lower extremities on Kefzol. She denies any chest pain. She is feeling very weak and having some shortness of breath. She is complaining of some itching in her right eye that started as morning.The findings of conjunctivitis Objective - Vital Signs Vital signs: Vital Signs Temp 99.4 F 08/27/17 07:00 Pulse 63 08/27/17 11:18 Resp 18 08/27/17 07:00 BP 137/76 08/27/17 07:00 Pulse Ox 100 08/27/17 07:51 Intake & Output 08/26/17 08/27/17 08/27/17 18:59 06:59 18:59 Intake Total 600 Balance 600 Weight 126.7 kg Intake: Oral 600 Other: Voiding Method Bedside Commode Bedside Commode Bedside Commode Bedpan Bedpan Bedpan # Voids 3 3 - Exam Head normocephalic Neck supple Lungs wheezing bilaterally Heart regular rate and rhythm S1-S2, no rub or gallop Abdomen is soft nontender nondistended positive bowel sounds no hepatosplenomegaly Extremities mild cellulitis of the lower extremities. Chronic skin changes and swelling Neuro alert and orientated to 3 - Labs CBC & Chem 7: 08/27/17 07:25 08/27/17 07:25 Labs: Abnormal Lab Results - Last 24 Hours (Table) 08/25/17 08/26/17 08/26/17 Range/Units 13:05 17:14 20:33 RBC (3.80-5.40) m/uL Hgb (11.4-16.0) gm/dL Hct (34.0-46.0) % MCH (25.0-35.0) pg MCHC (31.0-37.0) g/dL RDW (11.5-15.5) % BUN (7-17) mg/dL Creatinine (0.52-1.04) mg/dL Glucose (74-99) mg/dL POC Glucose (mg/dL) 134 H 187 H (75-99) mg/dL AST (14-36) U/L ALT (9-52) U/L Alkaline Phosphatase (38-126) U/L Total Protein (6.3-8.2) g/dL Crossmatch See Detail 08/27/17 08/27/17 08/27/17 Range/Units 07:06 07:25 07:25 RBC 3.31 L (3.80-5.40) m/uL Hgb 7.8 L (11.4-16.0) gm/dL Hct 28.2 L (34.0-46.0) % MCH 23.7 L (25.0-35.0) pg MCHC 27.8 L (31.0-37.0) g/dL RDW 17.6 H (11.5-15.5) % BUN 47 H (7-17) mg/dL Creatinine 1.40 H (0.52-1.04) mg/dL Glucose 119 H (74-99) mg/dL POC Glucose (mg/dL) 129 H (75-99) mg/dL AST 165 H (14-36) U/L ALT 115 H (9-52) U/L Alkaline Phosphatase 229 H (38-126) U/L Total Protein 6.1 L (6.3-8.2) g/dL Crossmatch 08/27/17 Range/Units 11:48 RBC (3.80-5.40) m/uL Hgb (11.4-16.0) gm/dL Hct (34.0-46.0) % MCH (25.0-35.0) pg MCHC (31.0-37.0) g/dL RDW (11.5-15.5) % BUN (7-17) mg/dL Creatinine (0.52-1.04) mg/dL Glucose (74-99) mg/dL POC Glucose (mg/dL) 137 H (75-99) mg/dL AST (14-36) U/L ALT (9-52) U/L Alkaline Phosphatase (38-126) U/L Total Protein (6.3-8.2) g/dL Crossmatch Assessment and Plan Assessment: #1 anemia likely secondary to antral erosive gastritis and iron deficiency: Iron level 17 iron saturation 4.47. Hemoglobin 7.1. Xarelto initially placed on hold. Continue Protonix. Stool for occult blood negative. B 12 level normal and folate level normal. Status post EGD revealing antral erosive gastritis no active bleeding. Continue Protonix. Tolerating advancement of diet. HGB 7.1. Since patient did not tolerate iron will give 1 unit of blood. Lasix 20 mg IV push after blood transfusion. 08/27/2017 hemoglobin dropped down to 7.8. We'll give another unit of blood. She still having shortness of breath and weakness. And unable to tolerate iron. Give Lasix 20 mg after blood transfusion #2 underlying history of DVT and PE in the past maintained on Xarelto #3 underlying history of chronic diastolic congestive heart failure #4 underlying history of paroxysmal atrial fibrillation, this was mentioned on her 2016 discharge summary #5 underlying history of diabetes mellitus #6 underlying history of COPD #7 underlying history of sleep apnea #8 underlying history of hypertension #9 acute on chronic kidney disease, stage III. Creatinine down to 1.4. Fluids hep-locked. #10 Bibasilar densities on chest x-ray atelectasis versus infiltrate. Continue with incentive spirometer. Order repeat chest x-ray #11 Bilateral lower extremity cellulitis: Seen by infectious disease. Continue Kefzol #12 elevated LFTs: Likely secondary to hypotension and statin. Patient's Lipitor discontinued. The Bystolic dose has been decreased to 5 mg daily instead of 10 Add SCDs for DVT resume patient's Xarelto Patient will likely require ECF placement at time of discharge I performed an examination of the patient and discussed their management with the physician Rd Lab Technician. I have reviewed the Physician Rd Lab Technician's notes and agree with the documented findings and plan of care
[2017-08-27 17:12] LABS: Glucose,Whole Blood 182 mg/dL (75-99)
[2017-08-27] MEDS: RIVAROXABAN 15 MG TAB PO SCH (18:55)
--- NOTE | 2017-08-27 19:36 | PN ---
PROGRESS NOTE DATE OF SERVICE: 08/27/2017 REASON FOR FOLLOWUP: Bilateral leg swelling and cellulitis. INTERVAL HISTORY: The patient is afebrile. She is breathing comfortably. Denies significant chest pain or cough. No abdominal pain. Did have some swelling of the leg with minimal redness. No open area and no drainage. PHYSICAL EXAMINATION: Blood pressure 124/59 with a pulse of 60, temperature 97.1. She is 97% on 3 L nasal cannula. General description is an elderly female up in the bed in no distress. RESPIRATORY SYSTEM: Unlabored breathing. Decreased breath sounds at the bases. No wheeze. HEART: S1, S2. Regular rate and rhythm. ABDOMEN: Soft. No tenderness. LEGS: Some swelling with very minimal redness to the left leg. No open area and no drainage. LABS: Hemoglobin 7.8, white count of 8.0, BUN of 47, creatinine 1.40. DIAGNOSTIC IMPRESSION AND PLAN: Patient with bilateral leg swelling with very minimal redness. There is a concern about possible myocellulitis. No open wound. Recommend continuing the patient on cefazolin to finish therapy with a short course of oral Keflex along with a light Myles wrap to keep some of the swelling down. Continue supportive care. MMODL / IJN: [id number] /
[2017-08-27 21:19] LABS: Glucose,Whole Blood 172 mg/dL (75-99)
[2017-08-28] MEDS: ALBUTEROL NEBULIZED 2.5 MG/3 ML INHALATION SCH ×7 (00:34→20:08)
[2017-08-28] MEDS: ceFAZolin IN SWFI 2 GM/20 ML SYRINGE IVP SCH ×3 (05:12→20:22)
[2017-08-28] MEDS: LEVOTHYROXINE 75 MCG TAB PO SCH (05:43)
[2017-08-28 07:43] LABS: Glucose,Whole Blood 123 mg/dL (75-99)
[2017-08-28 08:15] LABS: Anisocytosis Slight; Basophils # (A) 0.1 k/uL (0-0.2); Basophils % (A) 1 %; Eosinophils # (A) 0.5 k/uL (0-0.7); Eosinophils % (A) 5 %; HCT 31.3 % (34.0-46.0); Hypochromasia Marked; Lymphocytes # (A) 1.2 k/uL (1.0-4.8); Lymphocytes % (A) 12 %; MCH 24.6 pg (25.0-35.0); MCHC 28.7 g/dL (31.0-37.0); MCV 85.5 fL (80.0-100.0); Mean Platelet Volume 7.9; Monocytes # (A) 0.6 k/uL (0-1.0); Monocytes % (A) 6 %; Neutrophils # (A) 7.8 k/uL (1.3-7.7); Neutrophils % (A) 75 %; Platelet Count 308 k/uL (150-450); Poikilocytosis Slight; RBC 3.66 m/uL (3.80-5.40); RDW 17.5 % (11.5-15.5); WBC 10.3 k/uL (3.8-10.6)
[2017-08-28 08:30] LABS: Albumin 3.7 g/dL (3.5-5.0); Calcium 9.2 mg/dL (8.4-10.2); Potassium 4.9 mmol/L (3.5-5.1); Total Bilirubin 0.4 mg/dL (0.2-1.3); Total Protein 6.3 g/dL (6.3-8.2)
[2017-08-28] MEDS: INSULIN ASPART 100 UNIT/ML 1 ML 10 ML VIAL SQ SCH ×4 (08:38→20:37)
[2017-08-28] MEDS: CIPROFLOXACIN 0.3% OPHTH SOLN 5 ML BTL RIGHT EYE SCH ×5 (09:51→22:58)
[2017-08-28] MEDS: PANTOPRAZOLE 40 MG TABLET PO SCH (09:55)
[2017-08-28] MEDS: FUROSEMIDE 40 MG TAB PO SCH (09:56)
[2017-08-28] MEDS: AMIODARONE 200 MG TAB PO SCH (09:56)
[2017-08-28] MEDS: ISOSORBIDE MONONITRATE ER 30 MG TAB.ER.24H PO SCH (09:56)
[2017-08-28] MEDS: NEBIVOLOL 5 MG TAB PO SCH (09:56)
[2017-08-28] MEDS: SPIRONOLACTONE 25 MG TAB PO SCH (09:57)
[2017-08-28 12:09] LABS: Glucose,Whole Blood 150 mg/dL (75-99)
--- NOTE | 2017-08-28 13:52 | P.DS ---
Providers Date of admission: 08/23/17 09:04 Expected date of discharge: 08/28/17 Attending physician: Michel Oliver Consults: 08/26/17 11:53 Consult Physician Routine Consulting Provider: Melly Yap Consult Reason/Comments: lower extremities cellulitis Do you want consulting provider notified?: Yes Primary care physician: Linnea Alonso Hospital Course: Discharge diagnosis #1 anemia likely secondary to antral erosive gastritis and iron deficiency: Iron level 17 iron saturation 4.47. Hemoglobin 7.1. Xarelto initially placed on hold. Continue Protonix. Stool for occult blood negative. B 12 level normal and folate level normal. Status post EGD revealing antral erosive gastritis no active bleeding. Continue Protonix. Tolerating advancement of diet. HGB 7.1. Since patient does not tolerate iron. Since she has received 2 units of blood during this admission #2 underlying history of DVT and PE in the past maintained on Xarelto #3 underlying history of chronic diastolic congestive heart failure #4 underlying history of paroxysmal atrial fibrillation, this was mentioned on her 2016 discharge summary #5 underlying history of diabetes mellitus #6 underlying history of COPD #7 underlying history of sleep apnea #8 underlying history of hypertension #9 acute on chronic kidney disease, stage III. Creatinine 1.74 at discharge. She did receive Lasix yesterday after blood transfusion #10 Bibasilar densities on chest x-ray atelectasis versus infiltrate. Continue with incentive spirometer. #11 Bilateral lower extremity cellulitis: Discharge with Keflex for 5 more days #12 elevated LFTs: Likely secondary to hypotension and statin. Patient's Lipitor discontinued. The Bystolic dose has been decreased to 5 mg daily instead of 10. LFTs are showing improvement. Recommend holding statin and repeating LFTs in 1 week. Hospital course Tamar Dominguez is a 77-year-old female who presented to [facility] emergency department for down trending hemoglobin. Patient was complaining of weakness and shortness of breath. Patient hemoglobin was 7.9, this was repeated on the day of admission and it was 7.7. Patient was on xarelto, due to history of recurrent lower extremity DVT and 1 episode of PE per patient. she does report dark stools, rectal exam was done in the emergency room and was reported as heme-negative, however sample was questionable was minimal to no amount of stool in it. Patient states that she had multiple episodes of DVT in the past, she was diagnosed once in the past with pulmonary embolism, her last DVT was 5 years ago , she has been maintained on Xarelto. Past medical history significant for congestive heart failure, lower extremity DVT, pulmonary embolism, hypertension, hyperlipidemia, diabetes mellitus and COPD, patient also has a history of sleep apnea and rheumatoid arthritis and gout. On review of systems patient is alert and oriented in no apparent distress is complaining of generalized weakness she denies any fever or chills she has some dizziness and lightheadedness, she denies any chest pain she has occasional shortness of breath with activity she denies any cough there is no palpitation no nausea or vomiting no abdominal pain no diarrhea or constipation she reports seen black tarry stools in the last few days, she denies any bright red blood per rectum, there is no urinary symptoms. During this admission her hemoglobin had dropped down to 7.2. She required a total of 2 units of blood during this admission. Her iron levels were low however, patient has an ALLERGY to oral iron causing rash and hives and therefore she could not receive iron. She's received a total of 2 units of blood during this admission with a hemoglobin at 9 at time of discharge. She did undergone EGD during this admission with GI service which had shown an antral erosive gastritis with no active bleeding. Likely this is the source of her anemia and she'll continue Protonix 40 mg daily. Recommend checking a CBC in 1 week. Patient also had some elevated LFTs during this admission again related to hypotension and her statin. The Lipitor was discontinued and recommend repeating LFTs in 1 week. And then can further assess when to reinitiate statin. Her by systolic was also decreased to 5 mg daily. Blood pressures are stable. And LFTs are improving. Also note that she was treated for cellulitis of the lower extremities with and now is been switched over to Keflex for 5 more days. She was seen evaluated by infectious disease. Patient is medically stable for discharge. I performed an examination of the patient and discussed their management with the physician Manager Icu. I have reviewed the Physician Manager Icu's notes and agree with the documented findings and plan of care Patient Condition at Discharge: Stable Plan - Discharge Summary New Discharge Prescriptions: New Cephalexin [Keflex] 500 mg PO Q12HR #10 cap Ciprofloxacin Ophth Soln [Ciloxan 0.3% Ophth Soln] 1 drops RIGHT EYE Q4HR #1 ml Nebivolol [Bystolic] 5 mg PO DAILY tab Pantoprazole [Protonix] 40 mg PO AC-BRKFST #30 tablet.dr Continue Albuterol Inhaler [Ventolin Hfa Inhaler] 2 puff INHALATION RT-Q4H PRN PRN Reason: Shortness Of Breath Furosemide [Lasix] 40 mg PO DAILY Insulin Lispro [humaLOG Kwikpen] See Protocol SQ AC-TID PRN PRN Reason: Blood Sugar - High Meclizine [Antivert] 25 mg PO TID Albuterol Nebulized [Ventolin Nebulized] 2.5 mg INHALATION RT-Q4H PRN PRN Reason: Shortness Of Breath Rivaroxaban [Xarelto] 15 mg PO DAILY@1700 Levothyroxine Sodium [Synthroid] 75 mcg PO DAILY Allopurinol [Zyloprim] 300 mg PO DAILY Isosorbide Mononitrate ER [Imdur] 30 mg PO DAILY Amiodarone [Cordarone] 200 mg PO DAILY tab Spironolactone 25 mg PO DAILY Discontinued Omeprazole 20 mg PO DAILY Atorvastatin [Lipitor] 40 mg PO DAILY Amoxic-Pot Clav 875-125Mg [Augmentin 875-125] 1 tab PO Q12HR Nebivolol HCl [Bystolic] 10 mg PO DAILY Discharge Medication List Albuterol Inhaler [Ventolin Hfa Inhaler] 2 puff INHALATION RT-Q4H PRN 04/29/16 [ History] Furosemide [Lasix] 40 mg PO DAILY 07/24/16 [History] Insulin Lispro [humaLOG Kwikpen] See Protocol SQ AC-TID PRN 07/24/16 [History] Meclizine [Antivert] 25 mg PO TID 07/24/16 [History] Albuterol Nebulized [Ventolin Nebulized] 2.5 mg INHALATION RT-Q4H PRN 01/16/17 [ History] Allopurinol [Zyloprim] 300 mg PO DAILY 01/16/17 [History] Isosorbide Mononitrate ER [Imdur] 30 mg PO DAILY 01/16/17 [History] Levothyroxine Sodium [Synthroid] 75 mcg PO DAILY 01/16/17 [History] Rivaroxaban [Xarelto] 15 mg PO DAILY@1700 01/16/17 [History] Amiodarone [Cordarone] 200 mg PO DAILY tab 01/22/17 [Rx] Spironolactone 25 mg PO DAILY 08/22/17 [History] Cephalexin [Keflex] 500 mg PO Q12HR #10 cap 08/28/17 [Rx] Ciprofloxacin Ophth Soln [Ciloxan 0.3% Ophth Soln] 1 drops RIGHT EYE Q4HR #1 ml 08/28/17 [Rx] Nebivolol [Bystolic] 5 mg PO DAILY tab 08/28/17 [Rx] Pantoprazole [Protonix] 40 mg PO AC-BRKFST #30 tablet. 08/28/17 [Rx] Follow up Appointment(s)/Referral(s): Linnea Alonso DO [Primary Care Provider] - 1 Week Activity/Diet/Wound Care/Special Instructions: Diet: cardiac, diabetic Activity: as tolerated Check CBC and CMP in 1 week ok to discharge to ECF Discharge Disposition: TRANSFER TO SNF/ECF
--- NOTE | 2017-08-28 13:57 | PN ---
PROGRESS NOTE DATE OF SERVICE: 08/28/2017 REASON FOR FOLLOWUP: Lower extremity cellulitis. INTERVAL HISTORY: The patient is afebrile. She is breathing comfortably. She did have some cough, not bringing up any sputum. No chest pain, no abdominal pain. She is complaining of some blister on the leg, but no pain, redness has decreased. PHYSICAL EXAMINATION: Blood pressure 125/58 with a pulse of 64, temperature 97.9. She is 98% on 3 L nasal cannula. General description is an elderly female, up in the bed in no distress. RESPIRATORY SYSTEM: Unlabored breathing. Some coarse breath sounds at the base, no wheeze. HEART: S1, S2. Regular rate and rhythm. ABDOMEN: Soft, no tenderness. Leg with some swelling redness and edema, improved, no blisters. LABS: Hemoglobin 9 with a white count 10.3, BUN of 48, creatinine 1.74. DIAGNOSTIC IMPRESSION AND PLAN: Patient with bilateral lower extremity swelling, with question of cellulitis. Currently on cephazolin with the addition of a short course of oral Keflex. May recommend mild compression stockings to keep some of the swelling down. Continue supportive care. MMODL / IJN: [id number] /
[2017-08-28] MEDS: RIVAROXABAN 15 MG TAB PO SCH (17:54)
[2017-08-28 18:02] LABS: Glucose,Whole Blood 153 mg/dL (75-99)
[2017-08-28] MEDS ORDERED: ALBUTEROL NEBULIZED 2.5 MG/3 ML INHALATION PRN (19:55)
[2017-08-28 20:35] LABS: Glucose,Whole Blood 220 mg/dL (75-99)
[2017-08-29] MEDS: ceFAZolin IN SWFI 2 GM/20 ML SYRINGE IVP SCH (05:26)
[2017-08-29] MEDS: CIPROFLOXACIN 0.3% OPHTH SOLN 5 ML BTL RIGHT EYE SCH ×2 (05:27→08:14)
[2017-08-29] MEDS: LEVOTHYROXINE 75 MCG TAB PO SCH ×2 (05:28→08:13)
[2017-08-29 07:36] LABS: Glucose,Whole Blood 112 mg/dL (75-99)
[2017-08-29] MEDS: INSULIN ASPART 100 UNIT/ML 1 ML 10 ML VIAL SQ SCH (08:12)
[2017-08-29] MEDS: ISOSORBIDE MONONITRATE ER 30 MG TAB.ER.24H PO SCH (08:13)
[2017-08-29] MEDS: PANTOPRAZOLE 40 MG TABLET PO SCH (08:13)
[2017-08-29] MEDS: NEBIVOLOL 5 MG TAB PO SCH (08:13)
[2017-08-29] MEDS: AMIODARONE 200 MG TAB PO SCH (08:14)
[2017-08-29] MEDS: SPIRONOLACTONE 25 MG TAB PO SCH (08:14)
[2017-08-29] MEDS: FUROSEMIDE 40 MG TAB PO SCH (08:14)
[2017-08-29] MEDS: ALBUTEROL NEBULIZED 2.5 MG/3 ML INHALATION SCH ×2 (08:32→12:06)
[2017-08-29 09:08] VITALS: BP 123/58; RESP 18; TEMP 97.5
[2017-08-29 12:31] VITALS: PULSE 72
== END 2017-08-29 12:20 | DRG 378 ==
LOC: EC 11:26 → 5MS5E 15:11 → OBSVTOIN 08-23 09:04 → 5MS5E 08-25 17:40
PROVIDERS: ADMIT Internal Medicine; ATTEND Internal Medicine
PROC: 30233N1 Transfusion of Nonautologous Red Blood Cells into Peripheral Vein, Percutaneous Approach (ICD-10-PCS; 2017-08-25)
PROC: 0DB78ZX Excision of Stomach, Pylorus, Via Natural or Artificial Opening Endoscopic, Diagnostic (ICD-10-PCS; principal; 2017-08-25 07:30)
DX: K29.51 Unspecified chronic gastritis with bleeding (principal); N17.9 Acute kidney failure, unspecified; I95.9 Hypotension, unspecified; I13.0 Hypertensive heart and chronic kidney disease with heart failure and stage 1 through stage 4 chronic kidney disease, or unspecified chronic kidney disease; I50.32 Chronic diastolic (congestive) heart failure; E11.22 Type 2 diabetes mellitus with diabetic chronic kidney disease; E11.622 Type 2 diabetes mellitus with other skin ulcer; E66.01 Morbid (severe) obesity due to excess calories; Z68.42 Body mass index [BMI] 45.0-49.9, adult; I48.0 Paroxysmal atrial fibrillation; L03.115 Cellulitis of right lower limb; L97.819 Non-pressure chronic ulcer of other part of right lower leg with unspecified severity; L03.116 Cellulitis of left lower limb; D50.9 Iron deficiency anemia, unspecified; J44.9 Chronic obstructive pulmonary disease, unspecified; N18.3 Chronic kidney disease, stage 3 (moderate); M06.9 Rheumatoid arthritis, unspecified; R04.0 Epistaxis; G43.909 Migraine, unspecified, not intractable, without status migrainosus; K21.9 Gastro-esophageal reflux disease without esophagitis; G47.30 Sleep apnea, unspecified; M10.9 Gout, unspecified; M19.91 Primary osteoarthritis, unspecified site; E78.5 Hyperlipidemia, unspecified; E07.9 Disorder of thyroid, unspecified; H10.9 Unspecified conjunctivitis; Z79.01 Long term (current) use of anticoagulants; Z79.4 Long term (current) use of insulin; Z79.899 Other long term (current) drug therapy; Z86.711 Personal history of pulmonary embolism; Z86.718 Personal history of other venous thrombosis and embolism; Z87.891 Personal history of nicotine dependence; Z87.440 Personal history of urinary (tract) infections; Z96.651 Presence of right artificial knee joint; Z90.710 Acquired absence of both cervix and uterus; Z98.42 Cataract extraction status, left eye; Z98.41 Cataract extraction status, right eye; Z88.2 Allergy status to sulfonamides; Z88.7 Allergy status to serum and vaccine; Z88.8 Allergy status to other drugs, medicaments and biological substances
CPT/HCPCS: 36415; 43239; 71046; 80053; 82272; 82550; 82553; 82607; 82746; 83540; 83550; 83605; 83735; 84484; 85025; 85610; 85730; 86850; 86900; 86901; 86920; 88305; 93005; 94640; 94760; 96374; 99285

== ENCOUNTER 2017-09-17 14:33 | Inpatient (IN) | payer MEDICARE ==
[2017-09-17] MEDS ORDERED: ASPIRIN 325 MG TAB PO STA (14:41)
[2017-09-17] MEDS ORDERED: IPRATROPIUM-ALBUTEROL 3 ML NEB INHALATION STA (14:41)
[2017-09-17 14:56] LABS: Anisocytosis Slight; Basophils # (A) 0.1 k/uL (0-0.2); Basophils % (A) 0 %; Eosinophils # (A) 0.4 k/uL (0-0.7); Eosinophils % (A) 3 %; HCT 28.4 % (34.0-46.0); HGB 8.5 gm/dL (11.4-16.0); Hypochromasia Marked; Lymphocytes # (A) 1.1 k/uL (1.0-4.8); Lymphocytes % (A) 8 %; MCH 26.1 pg (25.0-35.0); Mean Platelet Volume 7.6; Monocytes # (A) 0.7 k/uL (0-1.0); Monocytes % (A) 5 %; Neutrophils # (A) 11.4 k/uL (1.3-7.7); Neutrophils % (A) 81 %; Platelet Count 371 k/uL (150-450); Poikilocytosis Moderate; RBC 3.26 m/uL (3.80-5.40); RDW 19.9 % (11.5-15.5)
[2017-09-17 15:14] LABS: Albumin 3.6 g/dL (3.5-5.0); Calcium 9.4 mg/dL (8.4-10.2); Potassium 3.9 mmol/L (3.5-5.1); Total Bilirubin 0.3 mg/dL (0.2-1.3); Total Protein 6.3 g/dL (6.3-8.2)
--- NOTE | 2017-09-17 16:29 | XR ---
EXAMINATION TYPE: XR chest 2V DATE OF EXAM: 09/17/2017 COMPARISON: 08/26/2019 HISTORY: Shortness of breath TECHNIQUE: Frontal and lateral views of the chest are obtained. FINDINGS: Bibasilar opacities likely reflect copious overlying soft tissues as no corresponding abnor mality seen on the lateral image and these are peripheral on the frontal image. There is no focal air space opacity, pleural effusion, or pneumothorax seen. The cardiac silhouette size is enlarged. T he osseous structures are intact. There is an exaggerated thoracic kyphosis. Degenerative changes of the visualized thoracic spine, glenohumeral joint and acromioclavicular joints are seen. IMPRESSION: No acute cardiopulmonary process.
[2017-09-17] MEDS ORDERED: VANCOMYCIN IV PER PHARMACY 1 EACH MISC MISCELLANE PRN (17:18)
[2017-09-17] MEDS ORDERED: VANCOMYCIN 2,500 MG in SODIUM CHLORIDE 0.9% 500 ML IVPB STA (17:44)
[2017-09-17] MEDS ORDERED: MORPHINE ORAL SOLN 10 MG/5 ML CUP PO PRN (17:52)
[2017-09-17] MEDS ORDERED: NALOXONE 0.4 MG/ML 1 ML VIAL IV PRN (17:52)
[2017-09-17] MEDS ORDERED: ALBUTEROL INHALER 60 PUFF/8 GM INHALER INHALATION PRN (17:54)
--- NOTE | 2017-09-17 17:58 | ED ---
Recheck HPI - General Chief Complaint: Recheck/Abnormal Lab/Rx Stated Complaint: Abnormal Labs Time Seen by Provider: 09/17/17 14:40 Source: patient Mode of arrival: ambulatory Limitations: no limitations - History of Present Illness Initial Comments: 77-year-old female presenting from rehab for evaluation of worsening labs and lower extremity cellulitis. She states that she was recently admitted to this hospital however she is unsure her formal diagnosis was. She was sent from the hospital to rehab and was getting ready to be discharged however she had baseline labs ordered and showed worsening renal function from previous. Facility also states that she has worsening cellulitis in bilateral lower extremities which is been progressively advancing upper leg and is now at the knees. She is not currently on any antibiotics however she has no acute complaints. - Related Data Home Medications Medication Instructions Recorded Confirmed Albuterol Inhaler [Ventolin Hfa 2 puff INHALATION RT-Q4H PRN 04/29/16 09/17/17 Inhaler] Insulin Lispro [humaLOG Kwikpen] See Protocol SQ AC-TID@,,07/24/16 Meclizine [Antivert] 25 mg PO TID@,,07/24/16 09/17/17 Albuterol Nebulized [Ventolin 2.5 mg INHALATION RT-Q4H PRN 01/16/17 09/17/17 Nebulized] Allopurinol [Zyloprim] 300 mg PO DAILY 01/16/17 09/17/17 Isosorbide Mononitrate ER [Imdur] 30 mg PO DAILY 01/16/17 09/17/17 Levothyroxine Sodium [Synthroid] 75 mcg PO DAILY 01/16/17 09/17/17 Rivaroxaban [Xarelto] 15 mg PO HS 01/16/17 09/17/17 Co Q-10 50mg 50 mg PO DAILY 09/17/17 09/17/17 Ferrous Sulfate [Feosol] 325 mg PO TID@0700,1200,1700 09/17/17 09/17/17 Furosemide [Lasix] 60 mg PO BID 09/17/17 09/17/17 Pantoprazole [Protonix] 40 mg PO DAILY@0700 09/17/17 09/17/17 Spironolactone [Aldactone] 25 mg PO DAILY@0800 09/17/17 09/17/17 traMADol HCL [Ultram] 50 mg PO Q12H PRN 09/17/17 09/17/17 Previous Rx's Medication Instructions Recorded Amiodarone [Cordarone] 200 mg PO DAILY tab 01/22/17 Nebivolol [Bystolic] 5 mg PO DAILY tab 08/28/17 Allergies Allergy/AdvReac Type Severity Reaction Status Date / Time iron Allergy Rash/Hives Verified 09/17/17 15:28 Sulfa (Sulfonamide Allergy Rash/Hives Verified 09/17/17 15:28 Antibiotics) Tetanus Vaccines and Toxoid Allergy Swelling Verified 09/17/17 15:28 Review of Systems ROS Statement: Those systems with pertinent positive or pertinent negative responses have been documented in the HPI. ROS Other: All systems not noted in ROS Statement are negative. Constitutional: Denies: fever, chills Eyes: Denies: eye pain, vision change ENT: Denies: ear pain, throat pain Respiratory: Reports: cough. Denies: dyspnea Cardiovascular: Denies: chest pain, palpitations Endocrine: Denies: fatigue, polydipsia, polyuria Gastrointestinal: Denies: abdominal pain, nausea, vomiting Genitourinary: Denies: urgency, dysuria Musculoskeletal: Denies: back pain, arthralgia, myalgia Skin: Reports: rash, lesions Neurological: Denies: headache, weakness Psychiatric: Denies: anxiety, depression Hematological/Lymphatic: Denies: easy bleeding, easy bruising 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", gout History of Any Multi-Drug Resistant Organisms: None Reported Past Surgical History: Heart Catheterization, Hysterectomy, Joint Replacement, Orthopedic Surgery Additional Past Surgical History / Comment(s): rt knee replacement, heel spur left foot, sanjana cataracts,cystoscopy Past Anesthesia/Blood Transfusion Reactions: No Reported Reaction Past Psychological History: No Psychological Hx Reported Smoking Status: Former smoker Past Alcohol Use History: None Reported Past Drug Use History: None Reported - Past Family History Mother Family Medical History: Unable to Obtain Father Family Medical History: Unable to Obtain General Exam Limitations: no limitations General appearance: alert, in no apparent distress Head exam: Present: atraumatic, normocephalic Eye exam: Present: normal appearance, PERRL, EOMI. Absent: scleral icterus, conjunctival injection ENT exam: Present: normal exam, mucous membranes moist Neck exam: Present: normal inspection. Absent: tenderness, meningismus, lymphadenopathy Respiratory exam: Present: normal lung sounds bilaterally. Absent: respiratory distress, wheezes, rales, rhonchi, stridor Cardiovascular Exam: Present: regular rate, normal rhythm, normal heart sounds. Absent: systolic murmur, diastolic murmur, rubs, gallop, clicks GI/Abdominal exam: Present: soft, normal bowel sounds. Absent: distended, tenderness, guarding, rebound, rigid Rectal exam: Present: deferred Extremities exam: Present: full ROM, normal capillary refill, pedal edema, other (Bilateral lower extremity cellulitis from the knee down). Absent: tenderness, joint swelling, calf tenderness Back exam: Present: normal inspection, full ROM Neurological exam: Present: alert, oriented X3 Psychiatric exam: Present: normal affect, normal mood Skin exam: Present: warm, dry, other (Cellulitis with open lesions to the bilateral lower extremities advancing from the feet all the way up to the knee.) Course Vital Signs 09/17/17 09/17/17 09/17/17 14:35 14:45 15:46 Temperature 97.8 F Pulse Rate 63 60 Respiratory 32 H 32 H 20 Rate Blood Pressure 111/54 104/53 O2 Sat by Pulse 99 98 Oximetry 09/17/17 09/17/17 09/17/17 15:47 15:57 18:31 Temperature Pulse Rate 60 60 60 Respiratory 16 16 32 H Rate Blood Pressure 95/50 O2 Sat by Pulse 99 Oximetry 09/17/17 19:04 Temperature Pulse Rate 60 Respiratory 30 H Rate Blood Pressure 100/52 O2 Sat by Pulse 98 Oximetry Medical Decision Making - Medical Decision Making 77-year-old female presented for evaluation of abnormal labs found as an outpatient. We'll send by coat baster as she has worsening kidney function and he is also concerned about lower extremity cellulitis. On physical examination she appears to be in no apparent distress however once undressed and able to visualize both like she has cellulitis extending up 50% of the lower extremity's bilaterally. Skin is warm and erythematous with blanching and consistent with cellulitis. Patient started on Vanco mycin and labs were obtained which showed that she does have worsening kidney function more so with a BUN versus a creatinine. She also has a leukocytosis which is consistent with a diagnosis of cellulitis. Discussed with Dr. Oliver concerning admission and he accepted without further request. Admission order placed in bed request submitted. - Lab Data Result diagrams: 09/17/17 14:46 09/17/17 14:46 Lab Results 09/17/17 09/17/17 09/17/17 Range/Units 14:46 14:46 14:46 WBC 14.0 H (3.8-10.6) k/uL RBC 3.26 L (3.80-5.40) m/uL Hgb 8.5 L (11.4-16.0) gm/dL Hct 28.4 L (34.0-46.0) % MCV 87.0 (80.0-100.0) fL MCH 26.1 (25.0-35.0) pg MCHC 30.0 L (31.0-37.0) g/dL RDW 19.9 H (11.5-15.5) % Plt Count 371 (150-450) k/uL Neutrophils % 81 % Lymphocytes % 8 % Monocytes % 5 % Eosinophils % 3 % Basophils % 0 % Neutrophils # 11.4 H (1.3-7.7) k/uL Lymphocytes # 1.1 (1.0-4.8) k/uL Monocytes # 0.7 (0-1.0) k/uL Eosinophils # 0.4 (0-0.7) k/uL Basophils # 0.1 (0-0.2) k/uL Hypochromasia Marked Poikilocytosis Moderate Anisocytosis Slight Sodium 139 (137-145) mmol/L Potassium 3.9 (3.5-5.1) mmol/L Chloride 99 (98-107) mmol/L Carbon Dioxide 26 (22-30) mmol/L Anion Gap 14 mmol/L BUN 97 H* (7-17) mg/dL Creatinine 2.10 H (0.52-1.04) mg/dL Est GFR (CKD-EPI)AfAm 25 (>60 ml/min/1.73 sqM) Est GFR (CKD-EPI)NonAf 22 (>60 ml/min/1.73 sqM) Glucose 122 H (74-99) mg/dL Plasma Lactic Acid Oscar 1.4 (0.7-2.0) mmol/L Calcium 9.4 (8.4-10.2) mg/dL Total Bilirubin 0.3 (0.2-1.3) mg/dL AST 17 (14-36) U/L ALT 25 (9-52) U/L Alkaline Phosphatase 117 (38-126) U/L Troponin I (0.000-0.034) ng/mL NT-Pro-B Natriuret Pep pg/mL Total Protein 6.3 (6.3-8.2) g/dL Albumin 3.6 (3.5-5.0) g/dL 09/17/17 09/17/17 Range/Units 14:46 14:46 WBC (3.8-10.6) k/uL RBC (3.80-5.40) m/uL Hgb (11.4-16.0) gm/dL Hct (34.0-46.0) % MCV (80.0-100.0) fL MCH (25.0-35.0) pg MCHC (31.0-37.0) g/dL RDW (11.5-15.5) % Plt Count (150-450) k/uL Neutrophils % % Lymphocytes % % Monocytes % % Eosinophils % % Basophils % % Neutrophils # (1.3-7.7) k/uL Lymphocytes # (1.0-4.8) k/uL Monocytes # (0-1.0) k/uL Eosinophils # (0-0.7) k/uL Basophils # (0-0.2) k/uL Hypochromasia Poikilocytosis Anisocytosis Sodium (137-145) mmol/L Potassium (3.5-5.1) mmol/L Chloride (98-107) mmol/L Carbon Dioxide (22-30) mmol/L Anion Gap mmol/L BUN (7-17) mg/dL Creatinine (0.52-1.04) mg/dL Est GFR (CKD-EPI)AfAm (>60 ml/min/1.73 sqM) Est GFR (CKD-EPI)NonAf (>60 ml/min/1.73 sqM) Glucose (74-99) mg/dL Plasma Lactic Acid Oscar (0.7-2.0) mmol/L Calcium (8.4-10.2) mg/dL Total Bilirubin (0.2-1.3) mg/dL AST (14-36) U/L ALT (9-52) U/L Alkaline Phosphatase (38-126) U/L Troponin I <0.012 (0.000-0.034) ng/mL NT-Pro-B Natriuret Pep 593 pg/mL Total Protein (6.3-8.2) g/dL Albumin (3.5-5.0) g/dL - EKG Data EKG Comments: Sinus rhythm with first-degree AV block and a ventricular rate of 61, FRANCK 264, QRS 76, QT/QTc 444/446. Disposition Clinical Impression: Acute kidney failure, Cellulitis of both lower extremities Disposition: ADMITTED IP TO THIS [facility] Decision to Admit Reason: Admit from EC Decision Date: 09/17/17 Decision Time: 17:52
[2017-09-17] MEDS: MECLIZINE 25 MG TAB PO SCH (20:30)
[2017-09-17] MEDS: FUROSEMIDE 20 MG TAB PO SCH (20:30)
[2017-09-17] MEDS: RIVAROXABAN 15 MG TAB PO SCH (20:30)
[2017-09-17] MEDS: ALBUTEROL NEBULIZED 2.5 MG/3 ML INHALATION PRN (20:42)
[2017-09-17 20:54] LABS: Glucose,Whole Blood 163 mg/dL (75-99)
[2017-09-18] MEDS: LEVOTHYROXINE 75 MCG TAB PO SCH (05:45)
[2017-09-18 07:04] LABS: Glucose,Whole Blood 163 mg/dL (75-99)
[2017-09-18] MEDS: ALBUTEROL NEBULIZED 2.5 MG/3 ML INHALATION PRN ×4 (07:27→19:51)
[2017-09-18] MEDS: ISOSORBIDE MONONITRATE ER 30 MG TAB.ER.24H PO SCH (07:54)
[2017-09-18] MEDS: PANTOPRAZOLE 40 MG TABLET PO SCH (07:54)
[2017-09-18] MEDS: FERROUS SULFATE 325 MG TAB PO SCH ×3 (07:54→18:16)
[2017-09-18] MEDS: ALLOPURINOL 300 MG TAB PO SCH (07:54)
[2017-09-18] MEDS: NEBIVOLOL 5 MG TAB PO SCH (07:55)
[2017-09-18] MEDS: SPIRONOLACTONE 25 MG TAB PO SCH (07:55)
[2017-09-18] MEDS: INSULIN ASPART 100 UNIT/ML 1 ML 10 ML VIAL SQ SCH ×3 (07:55→18:02)
[2017-09-18] MEDS: MECLIZINE 25 MG TAB PO SCH ×3 (07:55→18:03)
[2017-09-18] MEDS: FUROSEMIDE 20 MG TAB PO SCH ×2 (07:55→15:35)
[2017-09-18] MEDS: AMIODARONE 200 MG TAB PO SCH (07:55)
[2017-09-18] MEDS: ACETAMINOPHEN TAB 325 MG TAB PO PRN (08:16)
[2017-09-18] MEDS ORDERED: CO Q10 50 MG PO SCH (09:00)
[2017-09-18 09:18] LABS: Anisocytosis Moderate; Basophils # (A) 0.1 k/uL (0-0.2); Basophils % (A) 0 %; Eosinophils # (A) 0.4 k/uL (0-0.7); Eosinophils % (A) 3 %; HCT 26.5 % (34.0-46.0); HGB 7.9 gm/dL (11.4-16.0); Hypochromasia Marked; Lymphocytes # (A) 1.6 k/uL (1.0-4.8); Lymphocytes % (A) 13 %; MCH 25.7 pg (25.0-35.0); MCHC 29.9 g/dL (31.0-37.0); Mean Platelet Volume 7.3; Monocytes # (A) 0.6 k/uL (0-1.0); Monocytes % (A) 5 %; Neutrophils # (A) 9.6 k/uL (1.3-7.7); Neutrophils % (A) 76 %; Platelet Count 327 k/uL (150-450); Poikilocytosis Moderate; RBC 3.08 m/uL (3.80-5.40); RDW 20.1 % (11.5-15.5); WBC 12.6 k/uL (3.8-10.6)
[2017-09-18 09:30] LABS: Calcium 9.1 mg/dL (8.4-10.2); Potassium 4.2 mmol/L (3.5-5.1)
[2017-09-18 11:34] LABS: Vancomycin,Random 20.6 ug/mL
[2017-09-18 12:35] LABS: Glucose,Whole Blood 177 mg/dL (75-99)
--- NOTE | 2017-09-18 12:45 | P.HPIM ---
History of Present Illness H&P Date: 09/18/17 Tamar Dominguez is a 77-year-old female presenting from rehab for evaluation of worsening labs and lower extremity cellulitis. Patient was recently discharged from [facility] to a rehab unit after an admission for anemia and evidence of erosive gastritis during the last admission patient received 2 units of red blood cells. She has known history of chronic atrial fibrillation and known history of lower extremity DVT and pulmonary embolism she was maintained on Xarelto. Patient was noticed to have worsening lower extremity swelling and erythema and kidney function was worsening she was sent back to emergency room and was readmitted to [facility]. 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", gout History of Any Multi-Drug Resistant Organisms: None Reported Past Surgical History: Heart Catheterization, Hysterectomy, Joint Replacement, Orthopedic Surgery Additional Past Surgical History / Comment(s): rt knee replacement, heel spur left foot, sanjana cataracts,cystoscopy Past Anesthesia/Blood Transfusion Reactions: No Reported Reaction Past Psychological History: No Psychological Hx Reported Smoking Status: Former smoker Past Alcohol Use History: None Reported Past Drug Use History: None Reported - Past Family History Mother Family Medical History: Unable to Obtain Father Family Medical History: Unable to Obtain Medications and Allergies Home Medications Medication Instructions Recorded Confirmed Type Albuterol Inhaler [Ventolin Hfa 2 puff INHALATION RT-Q4H PRN 04/29/16 09/17/17 History Inhaler] Insulin Lispro [humaLOG Kwikpen] See Protocol SQ AC-TID@,07/24/16 History Meclizine [Antivert] 25 mg PO TID@,,07/24/16 09/17/17 History Albuterol Nebulized [Ventolin 2.5 mg INHALATION RT-Q4H PRN 01/16/17 09/17/17 History Nebulized] Allopurinol [Zyloprim] 300 mg PO DAILY 01/16/17 09/17/17 History Isosorbide Mononitrate ER [Imdur] 30 mg PO DAILY 01/16/17 09/17/17 History Levothyroxine Sodium [Synthroid] 75 mcg PO DAILY 01/16/17 09/17/17 History Rivaroxaban [Xarelto] 15 mg PO HS 01/16/17 09/17/17 History Amiodarone [Cordarone] 200 mg PO DAILY tab 01/22/17 09/17/17 Rx Nebivolol [Bystolic] 5 mg PO DAILY tab 08/28/17 09/17/17 Rx Co Q-10 50mg 50 mg PO DAILY 09/17/17 09/17/17 History Ferrous Sulfate [Feosol] 325 mg PO TID@0700,1200,1700 09/17/17 09/17/17 History Furosemide [Lasix] 60 mg PO BID 09/17/17 09/17/17 History Pantoprazole [Protonix] 40 mg PO DAILY@0700 09/17/17 09/17/17 History Spironolactone [Aldactone] 25 mg PO DAILY@0800 09/17/17 09/17/17 History traMADol HCL [Ultram] 50 mg PO Q12H PRN 09/17/17 09/17/17 History Allergies Allergy/AdvReac Type Severity Reaction Status Date / Time iron Allergy Rash/Hives Verified 09/17/17 15:28 Sulfa (Sulfonamide Allergy Rash/Hives Verified 09/17/17 15:28 Antibiotics) Tetanus Vaccines and Toxoid Allergy Swelling Verified 09/17/17 15:28 Physical Exam Vitals: Vital Signs Temp Pulse Pulse Resp BP BP Pulse Ox 09/18/17 11:17 68 09/18/17 11:06 69 09/18/17 08:00 62 20 09/18/17 07:41 68 09/18/17 07:27 68 09/18/17 06:01 96.9 F L 62 20 114/60 97 09/17/17 23:00 96.2 F L 65 16 127/60 97 09/17/17 20:52 69 09/17/17 20:42 69 09/17/17 20:00 65 16 09/17/17 19:30 97.4 F L 67 16 105/53 96 09/17/17 19:06 98.7 F 09/17/17 19:04 60 30 H 100/52 98 09/17/17 18:31 60 32 H 95/50 99 09/17/17 15:57 60 16 09/17/17 15:47 60 16 09/17/17 15:46 60 20 104/53 98 09/17/17 14:45 32 H 09/17/17 14:35 97.8 F 63 32 H 111/54 99 Intake and Output 09/17/17 09/18/17 09/18/17 22:59 06:59 14:59 Other: Voiding Method Bedpan Bedpan Diaper # Voids 1 4 In general patient is alert and oriented 3 in no apparent distress HEENT head normocephalic and atraumatic Neck is supple no JVD no goiter no lymphadenopathy Chest exam reveals a few scattered crackles bilaterally no wheezing Cardiac exam reveals regular heart sounds S1 and S2 no gallops no murmurs Abdomen is soft obese nontender nondistended no organomegaly no palpable masses was normal bowel sounds Extremity exam reveals 3+ edema bilaterally with chronic stasis changes bilaterally there is also erythema extending from the foot all the way to above- the-knee Neurological examination reveals no gross focal deficit Results CBC & Chem 7: 09/18/17 08:30 09/18/17 08:30 Labs: Abnormal Lab Results - Last 24 Hours (Table) 09/17/17 09/17/17 09/17/17 Range/Units 14:46 14:46 20:52 WBC 14.0 H (3.8-10.6) k/uL RBC 3.26 L (3.80-5.40) m/uL Hgb 8.5 L (11.4-16.0) gm/dL Hct 28.4 L (34.0-46.0) % MCHC 30.0 L (31.0-37.0) g/dL RDW 19.9 H (11.5-15.5) % Neutrophils # 11.4 H (1.3-7.7) k/uL BUN 97 H* (7-17) mg/dL Creatinine 2.10 H (0.52-1.04) mg/dL Glucose 122 H (74-99) mg/dL POC Glucose (mg/dL) 163 H (75-99) mg/dL 09/18/17 09/18/1718 Range/Units 07:02 08:30 08:30 WBC 12.6 H (3.8-10.6) k/uL RBC 3.08 L (3.80-5.40) m/uL Hgb 7.9 L (11.4-16.0) gm/dL Hct 26.5 L (34.0-46.0) % MCHC 29.9 L (31.0-37.0) g/dL RDW 20.1 H (11.5-15.5) % Neutrophils # 9.6 H (1.3-7.7) k/uL BUN 87 H* (7-17) mg/dL Creatinine 1.95 H (0.52-1.04) mg/dL Glucose 123 H (74-99) mg/dL POC Glucose (mg/dL) 163 H (75-99) mg/dL Thrombosis Risk Factor Assmnt - Choose All That Apply Any of the Below Risk Factors Present?: Yes Each Factor Represents 1 point: Heart failure (<1month), Medical pt on bed rest , Obesity (BMI >25), Serious lung disease incl. pneumonia (< 1month), Swollen legs (current) Other Risk Factors: Yes Each Risk Factor Represents 3 Points: Age 75 years or older Other congenital or acquired thrombophilia - If yes, enter type in comment: No Thrombosis Risk Factor Assessment Total Risk Factor Score: 8 Thrombosis Risk Factor Assessment Level: High Risk Assessment and Plan Plan: #1 acute on chronic renal failure #2 bilateral lower extremity cellulitis, there is leukocytosis on presentation was white blood count of 14,000 #3 anemia hemoglobin on presentation 8.5 will monitor will check iron level #4 previous history of deep venous thrombosis and pulmonary embolism #5 underlying history of rheumatoid arthritis her patient #6 underlying history of diabetes mellitus #7 underlying history of atrial fibrillation #8 underlying history of congestive heart failure #9 and underlying history of sleep apnea maintained on CPAP #10 underlying history of hypothyroidism At this time patient is admitted to medical floor she was started on IV vancomycin in the emergency room Consultation for infectious disease and nephrology was initiated Will check iron studies Will check TSH and hemoglobin A1c Will check echocardiogram Will follow closely during this admission please see orders
--- NOTE | 2017-09-18 13:53 | CDI ---
Last Revision, May 2017 Documentation Clarification Form Date: 09/18/2017 01:50:00 PM From: Mary Kay AustinBlancoHAMIDA, CCDS Admit Date: 09/17/2017 5:52:00 PM Patient Name: Tamar Dominguez Visit Number: [id number] Discharge Date: ATTENTION: The Clinical Documentation Specialists (CDI) and [facility] Coding Staff appreciate your assistance in clarifying documentation. Please respond to the clarification below the line at the bottom and electronically sign. The CDI & [facility] Coding staff will review the response and follow-up if needed. Please note: Queries are made part of the Legal Health Record. If you have any questions, please contact the author of this message via ITS. Dr. Michel Oliver: Presented from rehab with worsening renal function & bilateral lower extremity cellulitis. History/Risk Factors: CKD, CHF with hypertension, chronic anemia, DM, atrial fibrillation and sleep apnea. Clinical Indicators: VS: R 32 (sob, tachypnea), PO 99 3Lnc. BNP: 593 Chest X Ray: no acute cardiopulmonary process. Previous ECHO 01/20/2017: Left ventricular systolic function wnl EF between 60-65% . Treatment: Heart healthy diet, Albuterol INH, IV Vanco, po Lasix 60 mg BID ( home dose). In your professional opinion, can you please clarify the acuity and type of CHF if known? Systolic Heart Failure: o Acute o Chronic o Acute on Chronic Diastolic Heart Failure: o Acute o Chronic o Acute on Chronic Systolic & Diastolic Heart Failure: o Acute o Chronic o Acute on Chronic Heart Failure Unable to Determine Other, please specify Please continue to document in your progress notes and discharge summary in order to capture severity of illness and risk of mortality. Include clinical findings that support your diagnosis. MTDD
[2017-09-18 14:33] LABS: T4, Free (Free Thyroxine) 0.97 ng/dL (0.78-2.19)
--- NOTE | 2017-09-18 15:59 | CONS ---
CONSULTATION DATE OF SERVICE: 09/18/2017 REASON FOR CONSULTATION: Bilateral lower extremity ulcers and cellulitis. HISTORY OF PRESENT ILLNESS: The patient is a 77-year-old female recently admitted to this hospital and treated for gastritis and GI bleed. At that time she also had some lower extremity cellulitis, in a patient who does have chronic swelling in her legs. The patient after was discharged to [facility] for rehabilitation, and patient was ready to be discharged home; however, she had blood work done and she was noted to have worsening of her kidney function with a BUN of 97 with a creatinine 2.10. Subsequently patient was sent to [facility] for further evaluation of the same. Patient was evaluated by the ER physician. She did have elevated white count of 14,000 with more swelling and redness in the legs with a diagnosis of acute cellulitis. The patient was started on vancomycin and admitted to the hospital. Infectious Disease was consulted for further recommendations regarding antibiotic therapy. The patient remains feeling weak and tired, with no energy. When asked specifically, she did complain of some pain in the leg area for the last week or so; more of a dull aching pain, 2 to 3 out of 10, and no radiation. The patient did have some superficial ulcerations but denies significant drainage from it, with more from chronic discoloration. The patient denies having any chest pain. Some shortness of breath but no cough or sputum production. No abdominal pain. No diarrhea. REVIEW OF SYSTEMS: CONSTITUTIONAL: Positive for weakness. No high-grade fever. EYES: No complaint. ENT: No complaint. RESPIRATORY: As per HPI. CARDIOVASCULAR: No complaint. GENITOURINARY: No complaint. GASTROINTESTINAL: No complaint. MUSCULOSKELETAL: No complaint. INTEGUMENTARY: As per HPI. PSYCHOLOGICAL: No complaint. ENDOCRINE: No complaint. NEUROLOGICAL: No complaint. PAST MEDICAL HISTORY: 1. Congestive heart failure. 2. Recurrent DVT. 3. Pulmonary embolism. 4. Hypertension. 5. Hyperlipidemia. 6. Diabetes mellitus. 7. COPD. 8. Sleep apnea. Lower extremity venostasis ulcer and cellulitis. PAST SURGICAL HISTORY: 1. Right knee replacement. 2. Heart catheterization. 3. Bilateral cataract surgery. 4. Cystoscopy. 5. Colonoscopy. 6. Hysterectomy. SOCIAL HISTORY: Remote history of smoking. No drinking or drug use. FAMILY HISTORY: No pertinent findings noticed. ALLERGIES: 1. SULFA. 2. IRON. 3. TETANUS VACCINE. CURRENT MEDICATIONS: 1. Tylenol. 2. Ventolin. 3. Zyloprim. 4. Amiodarone. 5. Iron sulfate. 6. Lasix. 7. NovoLog. 8. Imdur. 9. Synthroid. 10.Antivert. 11.Vancomycin, Pharmacy to dose. 12.Morphine sulfate. 13.Narcan. 14.Bystolic. 15.Zofran. 16.Protonix. 17.Xarelto. 18.Aldactone. PHYSICAL EXAMINATION: Blood pressure is 114/60 with a pulse of 62, temperature 96.9. She is 97% on 2 L nasal cannula. General description is an elderly female up in the chair in no distress. No tachypnea or accessory muscle of respiration use. HEENT examination shows slight pallor. No scleral icterus. Oral mucous membrane is moist. No pharyngeal erythema or thrush. NECK: Trachea is central. No thyromegaly. LUNGS: Unlabored breathing with decreased breath sounds at the bases. No wheeze or crackle. HEART: S1, S2. Regular rate and rhythm. ABDOMEN: Soft. No tenderness. No guarding. No rigidity. No organomegaly. LOWER EXTREMITIES: Some superficial chronic venostasis discoloration. Minimally warm to touch. No foul-smelling drainage. Neurologically patient is awake, alert, oriented x2. Mood and affect normal. LABS: Hemoglobin 7.9, white count 12.6. Admission white count was 14,000. BUN of 87, creatinine 1.95. Vancomycin 20,000. Blood culture obtained which is currently pending. DIAGNOSTIC IMPRESSION AND PLAN: 1. Patient with bilateral lower extremity venostasis ulcers with secondary cellulitis in a patient who does have diffuse swelling and redness and appeared to have underlying history of congestive heart failure, likely a streptococcal disease. Clinically doubt an MRSA infection. 2. Patient with athlete's foot. PLAN: 1. Discontinue the vancomycin, as clinically doubt MRSA infection and to decrease the risk of nephrotoxicity, as the patient already has borderline kidney function. 2. Cefazolin 2 grams IV piggyback q.12 hours has been adjusted to her kidney function. 3. Will apply Aquacel dressing to the open wound followed by Myles wrap just below the knee. 4. . 5. We will follow up on the clinical condition and cultures to further adjust medication if needed. Thank you for this consultation. Will follow this patient along with you. MMODL / IJN: [id number] /
[2017-09-18 17:47] LABS: Glucose,Whole Blood 181 mg/dL (75-99)
[2017-09-18 19:14] LABS: Iron Saturation 11.17 (12.00-45.00)
[2017-09-18 20:19] LABS: Glucose,Whole Blood 221 mg/dL (75-99)
[2017-09-18] MEDS ORDERED: VANCOMYCIN 2,000 MG in SODIUM CHLORIDE 0.9% 500 ML IVPB ONE (21:00)
[2017-09-18] MEDS: ceFAZolin IN SWFI 2 GM/20 ML SYRINGE IVP SCH (21:15)
[2017-09-18] MEDS: RIVAROXABAN 15 MG TAB PO SCH (21:16)
[2017-09-19] MEDS: traMADol 50 MG TAB PO PRN (06:07)
[2017-09-19] MEDS: LEVOTHYROXINE 75 MCG TAB PO SCH (06:07)
[2017-09-19] MEDS: PANTOPRAZOLE 40 MG TABLET PO SCH (06:48)
[2017-09-19] MEDS: FUROSEMIDE 20 MG TAB PO SCH ×2 (06:48→17:28)
[2017-09-19] MEDS: FERROUS SULFATE 325 MG TAB PO SCH ×3 (06:48→17:29)
[2017-09-19 07:31] LABS: Glucose,Whole Blood 146 mg/dL (75-99)
[2017-09-19 07:37] LABS: Anisocytosis Moderate; Basophils # (A) 0.1 k/uL (0-0.2); Basophils % (A) 1 %; Eosinophils # (A) 0.3 k/uL (0-0.7); Eosinophils % (A) 3 %; HCT 25.7 % (34.0-46.0); HGB 7.5 gm/dL (11.4-16.0); Hypochromasia Marked; Lymphocytes # (A) 1.4 k/uL (1.0-4.8); Lymphocytes % (A) 12 %; MCH 25.6 pg (25.0-35.0); MCV 88.4 fL (80.0-100.0); Monocytes # (A) 0.6 k/uL (0-1.0); Monocytes % (A) 5 %; Neutrophils # (A) 8.8 k/uL (1.3-7.7); Neutrophils % (A) 77 %; Platelet Count 296 k/uL (150-450); Poikilocytosis Slight; RBC 2.91 m/uL (3.80-5.40); RDW 20.7 % (11.5-15.5); WBC 11.4 k/uL (3.8-10.6)
[2017-09-19 07:48] LABS: Albumin 3.2 g/dL (3.5-5.0); Calcium 8.8 mg/dL (8.4-10.2); Potassium 4.2 mmol/L (3.5-5.1); Total Bilirubin 0.2 mg/dL (0.2-1.3); Total Protein 5.6 g/dL (6.3-8.2)
[2017-09-19] MEDS: INSULIN ASPART 100 UNIT/ML 1 ML 10 ML VIAL SQ SCH ×3 (08:02→17:36)
[2017-09-19] MEDS: ALBUTEROL NEBULIZED 2.5 MG/3 ML INHALATION PRN ×4 (08:39→20:23)
[2017-09-19] MEDS: ALLOPURINOL 300 MG TAB PO SCH (08:41)
[2017-09-19] MEDS: MECLIZINE 25 MG TAB PO SCH ×3 (08:41→17:29)
[2017-09-19] MEDS: SPIRONOLACTONE 25 MG TAB PO SCH (08:41)
[2017-09-19] MEDS: ISOSORBIDE MONONITRATE ER 30 MG TAB.ER.24H PO SCH (08:41)
[2017-09-19] MEDS: NEBIVOLOL 5 MG TAB PO SCH (08:41)
[2017-09-19] MEDS: AMIODARONE 200 MG TAB PO SCH (08:41)
[2017-09-19] MEDS: ceFAZolin IN SWFI 2 GM/20 ML SYRINGE IVP SCH ×2 (08:42→19:59)
--- NOTE | 2017-09-19 09:26 | XR ---
EXAMINATION TYPE: XR chest 2V DATE OF EXAM: 09/19/2017 HISTORY: chf. REFERENCE: Previous study dated 09/17/2017. FINDINGS: The heart remains enlarged. There is worsening right-sided airspace disease. Both CP angles are blunted. I could not exclude small effusions. IMPRESSION: 1. CARDIOMEGALY. 2. WORSENING RIGHT-SIDED AIRSPACE DISEASE. 3. I COULD NOT EXCLUDE SMALL, BILATERAL EFFUSIONS.
--- NOTE | 2017-09-19 11:14 | US ---
EXAMINATION TYPE: US renals and bladder DATE OF EXAM: 09/19/2017 COMPARISON: NONE CLINICAL HISTORY: RF. Renal failure EXAM MEASUREMENTS: Right Kidney: 10.2 x 5.2 x 5.1 cm Left Kidney: 12.2 x 5.4 x 4.5 cm *Technical limitations due to patient's body habitus and overlying bowel content Right Kidney: Anechoic area mid = 2.4 x 2.3 x 1.9cm , possible extrarenal pelvis as noted on prior ex am Left Kidney: possible cystic areas upper pole = 4.3 x 3.5 x 3.8cm and lower = 3.2 x 2.9 x 3.3cm Bladder: appears wnl Bilateral Jets seen: no IMPRESSION: BILATERAL RENAL CYSTIC DISEASE.
[2017-09-19] MEDS: RIVAROXABAN 15 MG TAB PO SCH (12:01)
[2017-09-19 12:18] LABS: Glucose,Whole Blood 214 mg/dL (75-99)
--- NOTE | 2017-09-19 13:15 | CONS ---
CONSULTATION ADDENDUM: Continuation of previous consult: IMPRESSION: 1. Chronic kidney disease with previous creatinine lowest at about 1.4 mg/dL on 09/06/2017. It looks like the patient had severe acute kidney injury with creatinine as high as 8.8 mg/dL in January following which she came down to about 1.13, but then she has been at 1.4 to 1.9 most off this year, particularly in August of 2017. Etiologies like unrecovered ATN. I will repeat another ultrasound of the kidneys. 2. Anemia with no active bleeding noted. Check iron studies. 3. Borderline pulmonary hypertension based on echocardiogram in January of 2017. 4. Bilateral lower extremity cellulitis, being followed by ID. Agree with discontinuation of vancomycin. 5. Severe hypothyroidism with TSH at 25. PLAN: Continue off of vancomycin. Check iron studies. Check ultrasound of the kidneys. Continue off of IV fluids. Continue oral Lasix and repeat labs in a.m. Renal function has improved since yesterday. The patient is on amiodarone. She has been started on Synthroid. Thank you for this consultation. We will continue to follow the patient with you during her hospitalization. MMODL / IJN: [id number] /
--- NOTE | 2017-09-19 13:18 | CONS ---
CONSULTATION REASON FOR CONSULT: Renal failure. HISTORY OF PRESENT ILLNESS: Patient is a 77-year-old female who was admitted to the hospital yesterday from rehab for worsening renal function. The patient also had cellulitis of her lower extremities. Serum creatinine was at 1.9 mg/dL. Previous creatinine was 1.7 on 09/08/2017 and 1.4 on 09/06/2017. The patient has been voiding. She was initially maintained on IV fluids which are now discontinued secondary to history of CHF. The patient is maintained on oral Lasix 60 mg p.o. b.i.d. She does not have any nephrotoxic medications on board. Patient did get a dose of vancomycin, which is now discontinued. Urine output has been good. Patient has been voiding on her own. Blood pressure is not low. PAST MEDICAL HISTORY: Chronic atrial fibrillation, history of DVT, PE, maintained on Xarelto, COPD, type 2 diabetes, gastric reflux disease, hypertension, osteoarthritis, rheumatoid arthritis, obstructive sleep apnea, hypothyroidism, UTI. PAST SURGICAL HISTORY: Cardiac catheterization, hysterectomy, right knee arthroplasty, left heel spur, cataract surgery, cystoscopy. SOCIAL HISTORY: Negative for smoking, drug abuse or alcohol abuse. MEDICATIONS: Medications include Antivert, Zyloprim, Synthroid, Imdur, Xarelto, Cordarone, Bystolic, Lasix, Protonix, Aldactone, Ultram. ALLERGIES: Include SULFUR, TETANUS, IRON. PHYSICAL EXAMINATION: Patient is comfortable, awake, alert, and oriented x3. Blood pressure is 120/67, heart rate 84 per minute. She is afebrile. Examination of the heart: S1, S2. Examination lungs: Bilateral breath sounds are heard. Occasional wheezing is heard bilaterally. Abdomen is soft, obese, nontender. Exam of lower extremities shows trace edema bilaterally. [employer] exam is grossly intact. Patient moving all 4 extremities. LAB: Show sodium 142, potassium 4.2, BUN 76, serum creatinine 1.73, hemoglobin 7.5 g/dL. TSH was 25.7. ASSESSMENT: 1. Acute kidney injury, currently nonoliguric, possibly related to hypoperfusion. Blood pressure had been slightly on the lower side, currently improved. The patient did receive IV fluids. I will hold off on any further IV fluids given the suggestion of mild volume overload. We will continue with oral Lasix for now and repeat labs in a.m. Ultrasound was done in January of 2017, which showed cystic changes in the left kidney, which did not meet criteria for simple cyst. 2. Chronic kidney disease. MMODL / IJN: [id number] /
[2017-09-19] MEDS: OXYMETAZOLINE 0.05% NASL SPRAY 1 SPRAY BOTTLE NASAL PRN (13:21)
--- NOTE | 2017-09-19 14:15 | P.PN ---
Subjective Progress Note Date: 09/19/17 Tamar Dominguez is a 77-year-old female presenting from rehab for evaluation of worsening labs and lower extremity cellulitis. Patient was recently discharged from [facility] to a rehab unit after an admission for anemia and evidence of erosive gastritis during the last admission patient received 2 units of red blood cells. She has known history of chronic atrial fibrillation and known history of lower extremity DVT and pulmonary embolism she was maintained on Xarelto. Patient was noticed to have worsening lower extremity swelling and erythema and kidney function was worsening she was sent back to emergency room and was readmitted to [facility]. On 09/19/2017 patient is alert and oriented 3 in no apparent distress she had a prolonged episode of nosebleed this morning, ENT consultation was requested for possible cauterization however nosebleed stopped with Afrin nose spray, anticoagulation is put on hold at this time and humidification added to oxygen supply, otherwise patient is feeling well she denies any chest pain or shortness of breath no cough no nausea no vomiting no diarrhea no abdominal pain and no urinary symptoms. Objective - Vital Signs Vital signs: Vital Signs Temp 97.0 F L 09/19/17 07:00 Pulse 84 09/19/17 11:35 Resp 16 09/19/17 08:00 BP 120/67 09/19/17 07:00 Pulse Ox 96 09/19/17 07:00 Intake & Output 09/18/17 09/19/17 09/19/17 18:59 06:59 18:59 Intake Total 1200 750 Balance 1200 750 Weight 131.5 kg Intake: Oral 1200 750 Other: Voiding Method Bedpan Bedside Commode Bedside Commode # Voids 6 2 # Bowel Movements 2 1 - Exam In general patient is alert and oriented 3 in no apparent distress HEENT head normocephalic and atraumatic Neck is supple no JVD no goiter no lymphadenopathy Chest exam reveals a few scattered crackles bilaterally no wheezing Cardiac exam reveals regular heart sounds S1 and S2 no gallops no murmurs Abdomen is soft obese nontender nondistended no organomegaly no palpable masses was normal bowel sounds Extremity exam reveals lower extremity edema no cyanosis or clubbing Neurological examination reveals no gross focal deficit - Labs CBC & Chem 7: 09/19/17 07:11 09/19/17 07:11 Labs: Abnormal Lab Results - Last 24 Hours (Table) 09/18/17 09/18/17 09/19/17 Range/Units 17:11 20:17 07:02 WBC (3.8-10.6) k/uL RBC (3.80-5.40) m/uL Hgb (11.4-16.0) gm/dL Hct (34.0-46.0) % MCHC (31.0-37.0) g/dL RDW (11.5-15.5) % Neutrophils # (1.3-7.7) k/uL BUN (7-17) mg/dL Creatinine (0.52-1.04) mg/dL Glucose (74-99) mg/dL POC Glucose (mg/dL) 181 H 221 H 146 H (75-99) mg/dL Total Protein (6.3-8.2) g/dL Albumin (3.5-5.0) g/dL 09/19/17 09/19/17 09/19/17 Range/Units 07:11 07:11 12:11 WBC 11.4 H (3.8-10.6) k/uL RBC 2.91 L (3.80-5.40) m/uL Hgb 7.5 L (11.4-16.0) gm/dL Hct 25.7 L (34.0-46.0) % MCHC 29.0 L (31.0-37.0) g/dL RDW 20.7 H (11.5-15.5) % Neutrophils # 8.8 H (1.3-7.7) k/uL BUN 76 H (7-17) mg/dL Creatinine 1.73 H (0.52-1.04) mg/dL Glucose 123 H (74-99) mg/dL POC Glucose (mg/dL) 214 H (75-99) mg/dL Total Protein 5.6 L (6.3-8.2) g/dL Albumin 3.2 L (3.5-5.0) g/dL Microbiology - Last 24 Hours (Table) 09/17/17 14:46 Blood Culture - Preliminary Blood No Growth after 24 hours Assessment and Plan Plan: #1 acute on chronic renal failure #2 bilateral lower extremity cellulitis, there is leukocytosis on presentation was white blood count of 14,000 #3 anemia hemoglobin on presentation 7.5 will monitor #4 previous history of deep venous thrombosis and pulmonary embolism #5 underlying history of rheumatoid arthritis her patient #6 underlying history of diabetes mellitus #7 underlying history of atrial fibrillation #8 underlying history of congestive heart failure #9 and underlying history of sleep apnea maintained on CPAP #10 underlying history of hypothyroidism #11 prolonged episode of nasal bleeding this morning, hold Xarelto At this time patient is admitted to medical floor she was started on IV vancomycin in the emergency room, she was seen by infectious disease currently she is maintained on cefazolin 2 g IV every 12 hours Consultation for infectious disease and nephrology was initiated Will check iron studies Will check TSH and hemoglobin A1c Will check echocardiogram Will follow closely during this admission please see orders
--- NOTE | 2017-09-19 16:36 | CONS ---
CONSULTATION REASON FOR CONSULTATION: Epistaxis. HISTORY: This is a 77-year-old white female who was had been admitted recently and discharged to rehab unit, but has had increasing difficulties with lower extremity cellulitis as well as renal failure. Her previous admission was for anemia with erosive gastritis. She has chronic atrial fibrillation and history of DVT and pulmonary embolus and is on Xarelto. She has over the last 2 or 3 months, had intermittent mild epistaxis on either side, but this has been noted here yesterday and today, mostly on the left side of the nose put also on the right on occasion. She has no chronic nasal airway obstruction. History of sinusitis. She is on oxygen at home also which is humidified and was not humidified here until today after she started having epistaxis. Her Xarelto has been held temporarily just starting today. PAST MEDICAL HISTORY: For atrial fibrillation, heart failure, COPD, diabetes, DVT, GERD, hypertension, arthritis, sleep apnea, thyroid disorder, renal failure. PAST SURGICAL HISTORY: Coronary artery catheterization, hysterectomy, joint replacement in the right knee, cataract surgery. SOCIAL HISTORY: Did smoke. Does not now. none. ALLERGIES: ALLERGIES TO IRON, SULFA, AND TETANUS. MEDICATIONS: Medications will not be renumerated as they are in the chart already. REVIEW OF SYSTEMS: Is noncontributory other than as above. PHYSICAL EXAM: Today, elderly white female sitting at the edge of the bed in no acute distress. She is conversant, awake, alert, oriented x3. HEENT. HEAD: Normocephalic and atraumatic. Ears bilateral canals are clear. Tympanic membranes are unremarkable. Mobile. Nose shows mild bleeding anterior septum bilaterally right anterior to the left. There are prominent vessels in this area. This is right at the tip of where her nasal cannula oxygen would be. The nasal septum otherwise has mild spurs bilaterally. No polyps or drainage is noted. Mouth and throat shows no abnormal masses or lesions. NECK: Supple without adenopathy. ASSESSMENT: 1. Bilateral anterior epistaxis. 2. Nasal dryness. 3. Anticoagulated status. PLAN: I have recommended bilateral anterior nasal septal cauterization and the patient was agreeable. This was performed today. Bleeding was controlled. Continue nasal cannula oxygen moisturization and if need be, may need to be started back on her Xarelto for other issues, although this does certainly put her at risk for continued or recurrent epistaxis. I have recommended against any nasal manipulation and reviewed this with the patient today. There is Afrin to be used as needed if she has some milder epistaxis with spraying this in the nose and utilizing pressure. This would likely stop most mild episodes of epistaxis. If there are questions or concerns, please free to contact me. LUAN / JOSÉ: [id number] /
--- NOTE | 2017-09-19 16:36 | PCN ---
PROCEDURE NOTE PREOP DIAGNOSIS: Bilateral epistaxis. POSTOP DIAGNOSIS: Bilateral epistaxis. PROCEDURE PERFORMED: Bilateral anterior nasal septal cauterization, left posterior to the right. Therefore, the vessel does not respond to each other. ANESTHESIA: Topical lidocaine. ESTIMATED BLOOD LOSS: Blood loss none. COMPLICATIONS: None. DESCRIPTION OF PROCEDURE: The patient was in her hospital bed in a sitting position. Topical 1% lidocaine with Afrin on cotton was placed in both nasal cavities. This was left in place for 3 minutes and then was removed. The bleeding points were cauterized with silver nitrate and again did not correspond to each other in order to prevent nasal septal perforation. Bleeding was well controlled with silver nitrate. Patient tolerated the procedure well. No complications. MMODL / IJN: [id number] /
[2017-09-19 17:32] LABS: Anisocytosis Moderate; Basophils # (A) 0.1 k/uL (0-0.2); Basophils % (A) 1 %; Eosinophils # (A) 0.3 k/uL (0-0.7); Eosinophils % (A) 2 %; HCT 27.2 % (34.0-46.0); HGB 8.2 gm/dL (11.4-16.0); Hypochromasia Marked; Lymphocytes # (A) 1.1 k/uL (1.0-4.8); Lymphocytes % (A) 9 %; MCH 26.7 pg (25.0-35.0); Macrocytosis Slight; Mean Platelet Volume 8.1; Monocytes # (A) 0.7 k/uL (0-1.0); Monocytes % (A) 6 %; Neutrophils % (A) 80 %; Platelet Count 319 k/uL (150-450); Poikilocytosis Slight; RBC 3.06 m/uL (3.80-5.40); RDW 21.4 % (11.5-15.5); WBC 12.5 k/uL (3.8-10.6)
[2017-09-19 17:34] LABS: Glucose,Whole Blood 155 mg/dL (75-99)
[2017-09-19] MEDS: ACETAMINOPHEN TAB 325 MG TAB PO PRN (17:37)
[2017-09-19 21:13] LABS: Glucose,Whole Blood 185 mg/dL (75-99)
[2017-09-20] MEDS: LEVOTHYROXINE 75 MCG TAB PO SCH (06:26)
[2017-09-20] MEDS: ALBUTEROL NEBULIZED 2.5 MG/3 ML INHALATION PRN ×4 (07:11→20:29)
[2017-09-20 07:16] LABS: Glucose,Whole Blood 144 mg/dL (75-99)
[2017-09-20] MEDS: INSULIN ASPART 100 UNIT/ML 1 ML 10 ML VIAL SQ SCH ×3 (07:33→17:18)
[2017-09-20 08:09] LABS: Albumin 3.6 g/dL (3.5-5.0); Calcium 9.4 mg/dL (8.4-10.2); Potassium 4.6 mmol/L (3.5-5.1); Total Bilirubin 0.3 mg/dL (0.2-1.3); Total Protein 6.2 g/dL (6.3-8.2)
[2017-09-20 08:25] LABS: Anisocytosis Moderate; Basophils # (A) 0.1 k/uL (0-0.2); Basophils % (A) 1 %; Eosinophils # (A) 0.4 k/uL (0-0.7); Eosinophils % (A) 4 %; HCT 27.5 % (34.0-46.0); HGB 8.1 gm/dL (11.4-16.0); Hypochromasia Marked; Lymphocytes # (A) 1.5 k/uL (1.0-4.8); Lymphocytes % (A) 12 %; MCH 26.2 pg (25.0-35.0); MCHC 29.3 g/dL (31.0-37.0); MCV 89.5 fL (80.0-100.0); Macrocytosis Slight; Mean Platelet Volume 8.1; Monocytes # (A) 0.6 k/uL (0-1.0); Monocytes % (A) 5 %; Neutrophils # (A) 9.5 k/uL (1.3-7.7); Neutrophils % (A) 77 %; Platelet Count 301 k/uL (150-450); Poikilocytosis Slight; RBC 3.07 m/uL (3.80-5.40); RDW 21.8 % (11.5-15.5); WBC 12.3 k/uL (3.8-10.6)
[2017-09-20] MEDS: ALLOPURINOL 300 MG TAB PO SCH (08:33)
[2017-09-20] MEDS: MECLIZINE 25 MG TAB PO SCH ×3 (08:33→17:20)
[2017-09-20] MEDS: PANTOPRAZOLE 40 MG TABLET PO SCH (08:33)
[2017-09-20] MEDS: ISOSORBIDE MONONITRATE ER 30 MG TAB.ER.24H PO SCH (08:34)
[2017-09-20] MEDS: NEBIVOLOL 5 MG TAB PO SCH (08:34)
[2017-09-20] MEDS: AMIODARONE 200 MG TAB PO SCH (08:34)
[2017-09-20] MEDS: FUROSEMIDE 20 MG TAB PO SCH ×2 (08:34→17:20)
[2017-09-20] MEDS: traMADol 50 MG TAB PO PRN (08:34)
[2017-09-20] MEDS: FERROUS SULFATE 325 MG TAB PO SCH ×3 (08:34→17:20)
[2017-09-20] MEDS: ceFAZolin IN SWFI 2 GM/20 ML SYRINGE IVP SCH ×2 (08:34→21:18)
[2017-09-20] MEDS: SPIRONOLACTONE 25 MG TAB PO SCH (08:34)
[2017-09-20] MEDS: OXYMETAZOLINE 0.05% NASL SPRAY 1 SPRAY BOTTLE NASAL PRN (08:38)
[2017-09-20] MEDS: RIVAROXABAN 15 MG TAB PO SCH (11:06)
--- NOTE | 2017-09-20 11:25 | P.PN ---
Subjective Progress Note Date: 09/20/17 Tamar Dominguez is a 77-year-old female presenting from rehab for evaluation of worsening labs and lower extremity cellulitis. Patient was recently discharged from [facility] to a rehab unit after an admission for anemia and evidence of erosive gastritis during the last admission patient received 2 units of red blood cells. She has known history of chronic atrial fibrillation and known history of lower extremity DVT and pulmonary embolism she was maintained on Xarelto. Patient was noticed to have worsening lower extremity swelling and erythema and kidney function was worsening she was sent back to emergency room and was readmitted to [facility]. On 09/19/2017 patient is alert and oriented 3 in no apparent distress she had a prolonged episode of nosebleed this morning, ENT consultation was requested for possible cauterization however nosebleed stopped with Afrin nose spray, anticoagulation is put on hold at this time and humidification added to oxygen supply, otherwise patient is feeling well she denies any chest pain or shortness of breath no cough no nausea no vomiting no diarrhea no abdominal pain and no urinary symptoms. On 09/20/2017 patient is alert and oriented 3 eating on the edge of the bed. She was seen yesterday by Dr. Muniz and underwent nasal cauterization due to recurrent prolonged episodes of bleeding, she remains off Xarelto today, she did not have any recurrence of her bleeding Objective - Vital Signs Vital signs: Vital Signs Temp 97.8 F 09/20/17 06:12 Pulse 60 09/20/17 08:00 Resp 16 09/20/17 08:00 BP 140/68 09/20/17 06:12 Pulse Ox 98 09/20/17 06:12 Intake & Output 09/19/17 09/20/17 09/20/17 18:59 06:59 18:59 Intake Total 440 Balance 440 Weight 132 kg Intake: Oral 440 Other: Voiding Method Bedside Commode Bedside Commode # Voids 3 1 # Bowel Movements 1 1 - Exam In general patient is alert and oriented 3 in no apparent distress HEENT head normocephalic and atraumatic Neck is supple no JVD no goiter no lymphadenopathy Chest exam reveals a few scattered crackles bilaterally no wheezing Cardiac exam reveals regular heart sounds S1 and S2 no gallops no murmurs Abdomen is soft obese nontender nondistended no organomegaly no palpable masses was normal bowel sounds Extremity exam reveals lower extremity edema no cyanosis or clubbing Neurological examination reveals no gross focal deficit - Labs CBC & Chem 7: 09/20/17 07:32 09/20/17 07:32 Labs: Abnormal Lab Results - Last 24 Hours (Table) 09/19/17 09/19/17 09/19/17 Range/Units 12:11 16:57 17:16 WBC 12.5 H (3.8-10.6) k/uL RBC 3.06 L (3.80-5.40) m/uL Hgb 8.2 L (11.4-16.0) gm/dL Hct 27.2 L (34.0-46.0) % MCHC 30.0 L (31.0-37.0) g/dL RDW 21.4 H (11.5-15.5) % Neutrophils # 10.0 H (1.3-7.7) k/uL BUN (7-17) mg/dL Creatinine (0.52-1.04) mg/dL Glucose (74-99) mg/dL POC Glucose (mg/dL) 214 H 155 H (75-99) mg/dL Total Protein (6.3-8.2) g/dL 09/19/17 09/20/17 09/20/17 Range/Units 21:11 07:14 07:32 WBC 12.3 H (3.8-10.6) k/uL RBC 3.07 L (3.80-5.40) m/uL Hgb 8.1 L (11.4-16.0) gm/dL Hct 27.5 L (34.0-46.0) % MCHC 29.3 L (31.0-37.0) g/dL RDW 21.8 H (11.5-15.5) % Neutrophils # 9.5 H (1.3-7.7) k/uL BUN (7-17) mg/dL Creatinine (0.52-1.04) mg/dL Glucose (74-99) mg/dL POC Glucose (mg/dL) 185 H 144 H (75-99) mg/dL Total Protein (6.3-8.2) g/dL 09/20/17 Range/Units 07:32 WBC (3.8-10.6) k/uL RBC (3.80-5.40) m/uL Hgb (11.4-16.0) gm/dL Hct (34.0-46.0) % MCHC (31.0-37.0) g/dL RDW (11.5-15.5) % Neutrophils # (1.3-7.7) k/uL BUN 70 H (7-17) mg/dL Creatinine 1.75 H (0.52-1.04) mg/dL Glucose 125 H (74-99) mg/dL POC Glucose (mg/dL) (75-99) mg/dL Total Protein 6.2 L (6.3-8.2) g/dL Microbiology - Last 24 Hours (Table) 09/17/17 14:46 Blood Culture - Preliminary Blood No Growth after 48 hours Assessment and Plan Plan: #1 acute on chronic renal failure, Cr improved from 2.1 to 1.75 #2 bilateral lower extremity cellulitis, there is leukocytosis on presentation with white blood count of 14,000, now down to 12.3 #3 anemia hemoglobin on presentation 7.5 will monitor #4 previous history of deep venous thrombosis and pulmonary embolism #5 underlying history of rheumatoid arthritis #6 underlying history of diabetes mellitus #7 underlying history of atrial fibrillation #8 underlying history of congestive heart failure #9 and underlying history of sleep apnea maintained on CPAP #10 underlying history of hypothyroidism, TSH is elevated at 25, will increase dose of levothyroxine 75 g daily to 88 g daily #11 prolonged episode of nasal bleeding this morning, patient underwent cauterization was Dr. Muniz At this time patient is admitted to medical floor she was started on IV vancomycin in the emergency room, she was seen by infectious disease currently she is maintained on cefazolin 2 g IV every 12 hours Consultation for infectious disease and nephrology was initiated Will check iron studies hemoglobin A1c ordered on 09/18/2017 is still pending
[2017-09-20 12:38] LABS: Glucose,Whole Blood 176 mg/dL (75-99)
[2017-09-20] MEDS: NYSTATIN 100,000 UNIT/ML SUSP 500,000 UNIT/5 ML CUP PO SCH ×3 (12:50→21:18)
--- NOTE | 2017-09-20 15:13 | PN ---
PROGRESS NOTE Patient is seen for followup for acute kidney injury. She is currently sitting up in bed. She is comfortable and denies any significant complaints. Patient states her breathing is slightly improved. Her renal function is fairly stable with creatinine staying at 1.75 mg/dL. She is down from 2.1 initially. Currently patient is on oral Lasix at 60 mg b.i.d. She had been on IV fluids which were discontinued. EXAMINATION: Blood pressure is 140/68, heart rate is 72 per minute. She is afebrile. Examination of the heart S1, S2. Examination lungs decreased breath sounds at bases. No crackles or wheezing is heard. Abdomen is soft, nontender, obese. Examination lower extremity shows edema 1+ bilaterally. LAB: Show sodium 142, potassium 4.6, hemoglobin 8.1 g/dL, BUN 70, serum creatinine 1.75. Albumin was 3.6. ASSESSMENT: 1. Chronic kidney disease with lowest creatinine about 1.4 mg/dL on 09/06/2017. Her renal function is currently improving from her previous admission when serum creatinine was as high as 8.8 mg/dL. 2. Acute kidney injury, mostly cardiorenal. Continue with current dose of oral Lasix. Continue off of IV fluids. 3. Borderline pulmonary hypertension noted on echocardiogram in January of 2017. 4. Bilateral lower extremity cellulitis, currently off of vancomycin. 5. Severe hypothyroidism with TSH of 25. 6. Anemia, iron studies show an iron saturation of 8.6%. PLAN: Start IV iron. Continue current dose of oral Lasix and repeat labs. MMODL / IJN: [id number] /
[2017-09-20 16:59] LABS: Glucose,Whole Blood 130 mg/dL (75-99)
[2017-09-20] MEDS: SODIUM FERRIC GLUCONAT-SUCROSE 125 MG in SODIUM CHLORIDE 0.9% 100 ML IVPB SCH (17:20)
[2017-09-20 17:49] LABS: Appearance,Urine Clear (Clear); Bilirubin,Urine Negative (Negative); Blood,Urine Negative (Negative); Color,Urine Light Yellow; Glucose,Urine (UA) Negative (Negative); Hyaline Casts,Urine 1 /lpf (0-2); Ketones,Urine Negative (Negative); Leukocyte Esterase,Urine Moderate (Negative); Mucus,Urine Rare /hpf; Nitrite,Urine Negative (Negative); Protein,Urine Negative (Negative); RBC,Urine 4 /hpf (0-5); Squamous Epithelial Cell,Urine 1 /hpf (0-4); Urobilinogen,Urine <2.0 mg/dL (<2.0); WBC,Urine 10 /hpf (0-5)
[2017-09-20 20:53] LABS: Glucose,Whole Blood 219 mg/dL (75-99)
[2017-09-20] MEDS: ONDANSETRON 4 MG/2 ML VIAL IVP PRN (21:24)
[2017-09-21] MEDS: ACETAMINOPHEN TAB 325 MG TAB PO PRN (02:34)
[2017-09-21] MEDS: LEVOTHYROXINE 88 MCG TAB PO SCH (06:35)
[2017-09-21] MEDS: ALBUTEROL NEBULIZED 2.5 MG/3 ML INHALATION PRN ×4 (07:03→18:57)
--- NOTE | 2017-09-21 07:03 | PN ---
PROGRESS NOTE DATE OF SERVICE: 09/20/2017. REASON FOR FOLLOWUP: Bilateral lower extremity venous stasis ulcer with cellulitis. INTERVAL HISTORY: The patient is afebrile. She is breathing comfortably. Denies having any chest pain, cough, no abdominal pain and worsening pain in leg area. EXAMINATION: Blood pressure 108/68, pulse of 65, temperature 96.9, she is 97% on 2 L nasal cannula. General description is an elderly female up in the bed in no distress. Respiratory system: Unlabored breathing. Clear to auscultation anteriorly. Heart S1, S2. Regular rate and rhythm. Abdomen is soft, no tenderness. Legs are currently dressed up. No obvious drainage on the dressing. LABS: Hemoglobin 8.1, white count 4.3, BUN of 70, creatinine 1.75. UA has been mildly positive. Blood culture negative. DIAGNOSTIC IMPRESSION AND PLAN: Patient with bilateral lower extremity venous stasis ulcer with secondary cellulitis. Local wound care to continue with Aquacel silver dressing followed by Myles wrap to keep the swelling down. Continue supportive care. MMODL / IJN: [id number] /
[2017-09-21 07:17] LABS: Glucose,Whole Blood 130 mg/dL (75-99)
[2017-09-21] MEDS: INSULIN ASPART 100 UNIT/ML 1 ML 10 ML VIAL SQ SCH ×3 (07:25→17:45)
[2017-09-21] MEDS: FUROSEMIDE 20 MG TAB PO SCH ×2 (08:10→16:22)
[2017-09-21] MEDS: FERROUS SULFATE 325 MG TAB PO SCH ×3 (08:10→16:22)
[2017-09-21] MEDS: SPIRONOLACTONE 25 MG TAB PO SCH (08:11)
[2017-09-21] MEDS: ALLOPURINOL 300 MG TAB PO SCH (08:11)
[2017-09-21] MEDS: MECLIZINE 25 MG TAB PO SCH ×3 (08:11→17:50)
[2017-09-21] MEDS: ceFAZolin IN SWFI 2 GM/20 ML SYRINGE IVP SCH ×2 (08:11→21:46)
[2017-09-21] MEDS: AMIODARONE 200 MG TAB PO SCH (08:11)
[2017-09-21] MEDS: PANTOPRAZOLE 40 MG TABLET PO SCH (08:11)
[2017-09-21 08:12] LABS: Anisocytosis Moderate; Basophils % (A) 0 %; Eosinophils # (A) 0.5 k/uL (0-0.7); Eosinophils % (A) 4 %; HCT 28.6 % (34.0-46.0); HGB 8.3 gm/dL (11.4-16.0); Hypochromasia Marked; Lymphocytes # (A) 1.5 k/uL (1.0-4.8); Lymphocytes % (A) 11 %; MCH 26.4 pg (25.0-35.0); MCHC 29.1 g/dL (31.0-37.0); MCV 90.8 fL (80.0-100.0); Macrocytosis Slight; Monocytes # (A) 0.7 k/uL (0-1.0); Monocytes % (A) 5 %; Neutrophils # (A) 10.4 k/uL (1.3-7.7); Neutrophils % (A) 78 %; Platelet Count 304 k/uL (150-450); Poikilocytosis Slight; RBC 3.14 m/uL (3.80-5.40); RDW 22.3 % (11.5-15.5); WBC 13.3 k/uL (3.8-10.6)
[2017-09-21] MEDS: ISOSORBIDE MONONITRATE ER 30 MG TAB.ER.24H PO SCH (08:12)
[2017-09-21] MEDS: NEBIVOLOL 5 MG TAB PO SCH (08:12)
[2017-09-21] MEDS: NYSTATIN 100,000 UNIT/ML SUSP 500,000 UNIT/5 ML CUP PO SCH ×4 (08:12→21:26)
[2017-09-21 08:17] LABS: Albumin 3.6 g/dL (3.5-5.0); Calcium 9.3 mg/dL (8.4-10.2); Potassium 5.1 mmol/L (3.5-5.1); Total Bilirubin 0.3 mg/dL (0.2-1.3); Total Protein 6.2 g/dL (6.3-8.2)
[2017-09-21] MEDS: SODIUM FERRIC GLUCONAT-SUCROSE 125 MG in SODIUM CHLORIDE 0.9% 100 ML IVPB SCH (10:29)
--- NOTE | 2017-09-21 11:45 | CDI ---
Last Revision, May 2017 Documentation Clarification Form Date: 09/21/2017 11:42:00 AM From: Mary Kay AustinBlancoHAMIDA, CCDS Admit Date: 09/17/2017 5:52:00 PM Patient Name: Tamar Dominguez Visit Number: [id number] Discharge Date: ATTENTION: The Clinical Documentation Specialists (CDI) and [facility] Coding Staff appreciate your assistance in clarifying documentation. Please respond to the clarification below the line at the bottom and electronically sign. The CDI & [facility] Coding staff will review the response and follow-up if needed. Please note: Queries are made part of the Legal Health Record. If you have any questions, please contact the author of this message via ITS. Dr. Yahaira Barber: Presented from rehab with worsening renal function & bilateral lower extremity cellulitis. Per the nephrology consult: "Acute kidney injury, mostly cardiorenal. Continue with current dose of oral Lasix. Continue off of IV fluids." History/Risk Factors: CKD, CHF with hypertension, chronic anemia, DM, atrial fibrillation and sleep apnea & history of DVT's & PE, on Xarelto. Clinical Indicators: VS: RR 32 (sob, tachypnea), BP 111/54, PO 99 3Lnc LAB: BUN 97, Cr 2.10, GFR 22, Gluc 122 Chest X Ray: no acute cardiopulmonary process. Treatment: Heart healthy diet, Albuterol INH, IV Vanco, changed to IV Kefzol, po Lasix 60 mg BID (home dose). In order to capture the severity of condition, please clarify if the condition signifies: CKD Stage 1 (GFR > 90) CKD Stage 2 (GFR 60-89) CKD Stage 3 (GFR 30-59) CKD Stage 4 (GFR 15-29) CKD Stage 5 (GFR <15) ESRD Other, please specify Unable to determine Please continue to document in your progress notes and discharge summary in order to capture severity of illness and risk of mortality. Include clinical findings that support your diagnosis. MTDD
[2017-09-21 12:23] LABS: Glucose,Whole Blood 158 mg/dL (75-99)
--- NOTE | 2017-09-21 12:36 | PN ---
PROGRESS NOTE The patient is seen for followup for acute kidney injury. Her serum creatinine is slightly higher today at 1.9 from 1.7 previously. Her baseline creatinine appears to be about 1.7, but has been as low as 1.4. Currently, patient is maintained on oral Lasix. She has had shortness of breath on and off and continues to have significant lower extremity edema and her legs are wrapped. She is not on any nephrotoxic medications and her blood pressure has not been significantly low. There are plans for possible discharge today. PHYSICAL EXAMINATION: On examination, blood pressure was 125/59, heart rate 60 per minute. Patient is afebrile. EXAMINATION OF THE HEART: S1 and S2. EXAMINATION OF THE LUNGS: Decreased breath sounds at bases. Occasional wheezing is heard. Abdomen is soft, nontender. Examination of lower extremities shows chronic skin changes, chronic edema. Both legs are currently wrapped. LABS: Labs show sodium 140, potassium 5.1, BUN 71, serum creatinine 1.9. Hemoglobin 8.3 g/dL. ASSESSMENT: 1. Acute kidney injury, cardiorenal. Serum creatinine is higher today. The patient is on oral Lasix. She does have significant lower extremity edema. I will continue with the current dose of Lasix and the patient could be discharged with plans to follow up as outpatient in about 4 to 5 days time. She is currently not on any nephrotoxic medications and her blood pressure is not significantly low. 2. Chronic kidney disease with lowest creatinine 1.4 on 09/06/2017. This is continued improvement from acute kidney injury with creatinine as high as 8.8 previously in January of 2017. 3. Bilateral lower extremity cellulitis. 4. Borderline pulmonary hypertension. 5. Severe hypothyroidism with TSH of 25. 6. Severe iron deficiency with iron saturation 8.6%, maintained on IV iron. PLAN: Continue current dose of Lasix. Patient will need followup as outpatient. Continue to avoid nephrotoxic agents. Repeat labs in 3 to 4 days as outpatient if patient is discharged today. MMODL / IJN: [id number] /
--- NOTE | 2017-09-21 13:36 | P.PN ---
Subjective Progress Note Date: 09/21/17 Tamar Dominguez is a 77-year-old female presenting from rehab for evaluation of worsening labs and lower extremity cellulitis. Patient was recently discharged from [facility] to a rehab unit after an admission for anemia and evidence of erosive gastritis during the last admission patient received 2 units of red blood cells. She has known history of chronic atrial fibrillation and known history of lower extremity DVT and pulmonary embolism she was maintained on Xarelto. Patient was noticed to have worsening lower extremity swelling and erythema and kidney function was worsening she was sent back to emergency room and was readmitted to [facility]. 09/21/2017 patient reports bumping the left side of her nose which then caused small nosebleed to the left nostril. This has now stopped. We will again continue to hold the Xarelto. Patient also had increase in her white count up to 13.3. A urinalysis is positive awaiting urine culture and will await further infectious disease recommendations in regards to antibiotics. She is currently on consult for cellulitis. She is also receiving IV iron for her iron deficiency anemia. Creatinine has been climbed up to 1.90 nephrology following. patient has no new complaints Objective - Vital Signs Vital signs: Vital Signs Temp 97.0 F L 09/21/17 06:14 Pulse 72 09/21/17 11:00 Resp 16 09/21/17 06:14 BP 125/59 09/21/17 06:14 Pulse Ox 99 09/21/17 06:14 Intake & Output 09/20/17 09/21/17 09/21/17 18:59 06:59 18:59 Intake Total 440 240 Balance 440 240 Weight 133 kg Intake: Oral 440 240 Other: Voiding Method Bedside Commode Bedside Commode # Voids 1 2 # Bowel Movements 0 - Exam Head normocephalic Neck supple Lungs clear to auscultation bilaterally no wheezing or crackles Heart regular rate and rhythm S1-S2, no rub or gallop Abdomen is soft nontender nondistended positive bowel sounds no hepatosplenomegaly Extremities swelling and cellulitis changes in the lower extremities Neuro alert and orientated to 3 - Labs CBC & Chem 7: 09/21/17 07:24 09/21/17 07:24 Labs: Abnormal Lab Results - Last 24 Hours (Table) 09/18/17 09/20/1709/20/18 Range/Units 08:30 16:58 17:30 WBC (3.8-10.6) k/uL RBC (3.80-5.40) m/uL Hgb (11.4-16.0) gm/dL Hct (34.0-46.0) % MCHC (31.0-37.0) g/dL RDW (11.5-15.5) % Neutrophils # (1.3-7.7) k/uL BUN (7-17) mg/dL Creatinine (0.52-1.04) mg/dL Glucose (74-99) mg/dL POC Glucose (mg/dL) 130 H (75-99) mg/dL Iron 41 L (50-170) ug/dL Iron Saturation 11.17 L (12.00-45.00) Total Protein (6.3-8.2) g/dL Ur Leukocyte Esterase Moderate H (Negative) Urine WBC 10 H (0-5) /hpf Urine Mucus Rare H (None) /hpf 09/20/17 09/21/17 09/21/17 Range/Units 20:49 07:15 07:24 WBC 13.3 H (3.8-10.6) k/uL RBC 3.14 L (3.80-5.40) m/uL Hgb 8.3 L (11.4-16.0) gm/dL Hct 28.6 L (34.0-46.0) % MCHC 29.1 L (31.0-37.0) g/dL RDW 22.3 H (11.5-15.5) % Neutrophils # 10.4 H (1.3-7.7) k/uL BUN (7-17) mg/dL Creatinine (0.52-1.04) mg/dL Glucose (74-99) mg/dL POC Glucose (mg/dL) 219 H 130 H (75-99) mg/dL Iron (50-170) ug/dL Iron Saturation (12.00-45.00) Total Protein (6.3-8.2) g/dL Ur Leukocyte Esterase (Negative) Urine WBC (0-5) /hpf Urine Mucus (None) /hpf 09/21/17 09/21/17 Range/Units 07:24 11:57 WBC (3.8-10.6) k/uL RBC (3.80-5.40) m/uL Hgb (11.4-16.0) gm/dL Hct (34.0-46.0) % MCHC (31.0-37.0) g/dL RDW (11.5-15.5) % Neutrophils # (1.3-7.7) k/uL BUN 71 H (7-17) mg/dL Creatinine 1.90 H (0.52-1.04) mg/dL Glucose 122 H (74-99) mg/dL POC Glucose (mg/dL) 158 H (75-99) mg/dL Iron (50-170) ug/dL Iron Saturation (12.00-45.00) Total Protein 6.2 L (6.3-8.2) g/dL Ur Leukocyte Esterase (Negative) Urine WBC (0-5) /hpf Urine Mucus (None) /hpf Microbiology - Last 24 Hours (Table) 09/17/17 14:46 Blood Culture - Preliminary Blood No Growth after 72 hours Assessment and Plan Assessment: #1 acute on chronic renal failure, stage4: Creatinine up to 1.90. Nephrology following. Appreciate their input acute kidney injury likely due to cardiorenal. However. They are recommending to continue current dose of Lasix since patient has lower extremity edema. #2 bilateral lower extremity cellulitis: Continue. Infectious disease following #3 iron deficiency anemia: Iron studies showed low iron and iron saturation is low. Nephrology is ordered IV iron. Hemoglobin 8.3 today. Repeat CBC in a.m. #4 previous history of deep venous thrombosis and pulmonary embolism #5 underlying history of rheumatoid arthritis #6 underlying history of diabetes mellitus #7 underlying history of atrial fibrillation Xarelto currently on hold due to nosebleed #8 underlying history of congestive heart failure #9 and underlying history of sleep apnea maintained on CPAP #10 underlying history of hypothyroidism, TSH is elevated at 25, will increase dose of levothyroxine 75 g daily to 88 g daily #11 prolonged episode of nasal bleeding this morning, patient underwent cauterization was Dr. Muniz. Patient had another nosebleed this morning which has stopped. We will continue to hold Xarelto #12 UTI with the increase in patient's white count up to 13.3. Check urine culture. We'll await further antibiotic recommendations per infectious disease Anticipate discharge to [facility] of possibly tomorrow if white count shows improvement and patient has no further nosebleeds I performed an examination of the patient and discussed their management with the physician Bombsight Specialist. I have reviewed the Physician Bombsight Specialist's notes and agree with the documented findings and plan of care
[2017-09-21 17:18] LABS: Glucose,Whole Blood 150 mg/dL (75-99)
[2017-09-21 21:02] LABS: Glucose,Whole Blood 190 mg/dL (75-99)
--- NOTE | 2017-09-21 21:18 | PN ---
PROGRESS NOTE DATE OF SERVICE: 09/21/2017. REASON FOR FOLLOWUP: Bilateral lower extremity wound cellulitis. INTERVAL HISTORY: The patient is afebrile. She is currently breathing comfortably. Denies having any chest pain, mild shortness of breath. Occasional cough. No abdominal pain and no pain in the lower leg area. EXAMINATION: Blood pressure 129/60 with a pulse of 66, temperature 97, she is 94% on 2 L nasal cannula. General description is a elderly female up in the bed in no distress. Respiratory system unlabored breathing. Decreased breath sounds in the bases, no wheeze. Heart S1, S2. Regular rate and rhythm. Abdomen soft, no tenderness. Legs swelling and redness seemed to have improved. LABS: Hemoglobin 8.8, white count 13.3. DIAGNOSTIC IMPRESSION AND PLAN: Patient with bilateral lower extremity venous stasis ulcer, cellulitis. The patient will continue with cefazolin, finish therapy with oral antibiotics, for discharge. Continue with supportive care. Local wound care with marino wrap to keep the swelling down. Continue supportive care. MMODL / IJN: [id number] /
[2017-09-21] MEDS: traMADol 50 MG TAB PO PRN (21:46)
[2017-09-22] MEDS: LEVOTHYROXINE 88 MCG TAB PO SCH (06:29)
[2017-09-22 07:37] LABS: Glucose,Whole Blood 157 mg/dL (75-99)
[2017-09-22] MEDS: MECLIZINE 25 MG TAB PO SCH ×3 (08:05→17:24)
[2017-09-22] MEDS: PANTOPRAZOLE 40 MG TABLET PO SCH (08:05)
[2017-09-22] MEDS: NEBIVOLOL 5 MG TAB PO SCH (08:05)
[2017-09-22] MEDS: FERROUS SULFATE 325 MG TAB PO SCH ×3 (08:05→17:24)
[2017-09-22] MEDS: SPIRONOLACTONE 25 MG TAB PO SCH (08:05)
[2017-09-22] MEDS: ceFAZolin IN SWFI 2 GM/20 ML SYRINGE IVP SCH ×2 (08:06→21:03)
[2017-09-22] MEDS: ALLOPURINOL 300 MG TAB PO SCH (08:06)
[2017-09-22] MEDS: INSULIN ASPART 100 UNIT/ML 1 ML 10 ML VIAL SQ SCH ×3 (08:06→18:02)
[2017-09-22] MEDS: AMIODARONE 200 MG TAB PO SCH (08:06)
[2017-09-22] MEDS: FUROSEMIDE 20 MG TAB PO SCH ×2 (08:06→15:07)
[2017-09-22] MEDS: NYSTATIN 100,000 UNIT/ML SUSP 500,000 UNIT/5 ML CUP PO SCH ×4 (08:07→21:03)
[2017-09-22] MEDS: ISOSORBIDE MONONITRATE ER 30 MG TAB.ER.24H PO SCH (08:07)
[2017-09-22 08:53] LABS: Anisocytosis Moderate; Basophils # (A) 0.1 k/uL (0-0.2); Basophils % (A) 0 %; Eosinophils # (A) 0.4 k/uL (0-0.7); Eosinophils % (A) 3 %; HCT 28.3 % (34.0-46.0); Hypochromasia Marked; Lymphocytes # (A) 1.4 k/uL (1.0-4.8); Lymphocytes % (A) 11 %; MCH 26.1 pg (25.0-35.0); MCHC 28.4 g/dL (31.0-37.0); MCV 92.1 fL (80.0-100.0); Macrocytosis Slight; Mean Platelet Volume 8.2; Monocytes # (A) 0.6 k/uL (0-1.0); Monocytes % (A) 5 %; Neutrophils # (A) 10.3 k/uL (1.3-7.7); Neutrophils % (A) 79 %; Platelet Count 299 k/uL (150-450); Poikilocytosis Slight; RBC 3.08 m/uL (3.80-5.40); RDW 22.9 % (11.5-15.5)
[2017-09-22 09:21] LABS: Albumin 3.5 g/dL (3.5-5.0); Calcium 9.4 mg/dL (8.4-10.2); Total Bilirubin 0.2 mg/dL (0.2-1.3); Total Protein 6.1 g/dL (6.3-8.2)
[2017-09-22] MEDS: SODIUM FERRIC GLUCONAT-SUCROSE 125 MG in SODIUM CHLORIDE 0.9% 100 ML IVPB SCH (09:23)
[2017-09-22] MEDS: ALBUTEROL NEBULIZED 2.5 MG/3 ML INHALATION PRN ×3 (09:42→21:31)
[2017-09-22 11:55] LABS: Glucose,Whole Blood 150 mg/dL (75-99)
--- NOTE | 2017-09-22 13:33 | P.PN ---
Subjective Progress Note Date: 09/22/17 Tamar Dominguez is a 77-year-old female presenting from rehab for evaluation of worsening labs and lower extremity cellulitis. Patient was recently discharged from [facility] to a rehab unit after an admission for anemia and evidence of erosive gastritis during the last admission patient received 2 units of red blood cells. She has known history of chronic atrial fibrillation and known history of lower extremity DVT and pulmonary embolism she was maintained on Xarelto. Patient was noticed to have worsening lower extremity swelling and erythema and kidney function was worsening she was sent back to emergency room and was readmitted to [facility]. 09/21/2017 patient reports bumping the left side of her nose which then caused small nosebleed to the left nostril. This has now stopped. We will again continue to hold the Xarelto. Patient also had increase in her white count up to 13.3. A urinalysis is positive awaiting urine culture and will await further infectious disease recommendations in regards to antibiotics. She is currently on consult for cellulitis. She is also receiving IV iron for her iron deficiency anemia. Creatinine has been climbed up to 1.90 nephrology following. patient has no new complaints 09/22/2017 patient had a small nosebleed this morning. Now resolved. No new complaints. Still evidence of some lower extremity cellulitis. WBC 13, hemoglobin 8 creatinine up to 2.08 Objective - Vital Signs Vital signs: Vital Signs Temp 97.1 F L 09/22/17 07:00 Pulse 63 09/22/17 07:44 Resp 18 09/22/17 07:34 BP 120/56 09/22/17 07:00 Pulse Ox 99 09/22/17 07:00 Intake & Output 09/21/17 09/22/17 09/22/17 18:59 06:59 18:59 Intake Total 440 Balance 440 Weight 134 kg Intake: Oral 440 Other: Voiding Method Bedside Commode Bedside Commode # Voids 4 3 # Bowel Movements 0 - Exam Head normocephalic Neck supple Lungs clear to auscultation bilaterally no wheezing or crackles Heart regular rate and rhythm S1-S2, no rub or gallop Abdomen is soft nontender nondistended positive bowel sounds no hepatosplenomegaly Extremities swelling and cellulitis changes in the lower extremities Neuro alert and orientated to 3 - Labs CBC & Chem 7: 09/22/17 08:05 09/22/17 08:05 Labs: Abnormal Lab Results - Last 24 Hours (Table) 09/21/17 09/21/17 09/22/17 Range/Units 17:16 21:00 07:32 WBC (3.8-10.6) k/uL RBC (3.80-5.40) m/uL Hgb (11.4-16.0) gm/dL Hct (34.0-46.0) % MCHC (31.0-37.0) g/dL RDW (11.5-15.5) % Neutrophils # (1.3-7.7) k/uL BUN (7-17) mg/dL Creatinine (0.52-1.04) mg/dL Glucose (74-99) mg/dL POC Glucose (mg/dL) 150 H 190 H 157 H (75-99) mg/dL Total Protein (6.3-8.2) g/dL 09/22/17 09/22/17 09/22/17 Range/Units 08:05 08:05 11:52 WBC 13.0 H (3.8-10.6) k/uL RBC 3.08 L (3.80-5.40) m/uL Hgb 8.0 L (11.4-16.0) gm/dL Hct 28.3 L (34.0-46.0) % MCHC 28.4 L (31.0-37.0) g/dL RDW 22.9 H (11.5-15.5) % Neutrophils # 10.3 H (1.3-7.7) k/uL BUN 78 H (7-17) mg/dL Creatinine 2.08 H (0.52-1.04) mg/dL Glucose 157 H (74-99) mg/dL POC Glucose (mg/dL) 150 H (75-99) mg/dL Total Protein 6.1 L (6.3-8.2) g/dL Microbiology - Last 24 Hours (Table) 09/17/17 14:46 Blood Culture - Preliminary Blood No Growth after 96 hours Assessment and Plan Assessment: #1 acute on chronic renal failure, stage4: Creatinine up to 2.08. Nephrology following. Appreciate their input acute kidney injury likely due to cardiorenal. #2 bilateral lower extremity venous stasis ulcer with secondary cellulitis: Continue Kefzol. Patient still having cellulitis changes with only mild improvement. Infectious disease following #3 iron deficiency anemia: Iron studies showed low iron and iron saturation is low. Patient is receive 3 doses of IV iron Hemoglobin down from 8.3-8. Repeat CBC in a.m. #4 previous history of deep venous thrombosis and pulmonary embolism #5 underlying history of rheumatoid arthritis #6 underlying history of diabetes mellitus #7 underlying history of atrial fibrillation. Xarelto will be resumed tonight #8 underlying history of congestive heart failure #9 and underlying history of sleep apnea maintained on CPAP #10 underlying history of hypothyroidism, TSH is elevated at 25, will increase dose of levothyroxine 75 g daily to 88 g daily #11 prolonged episode of nasal bleeding this morning, patient underwent cauterization was Dr. Muniz. Patient had a mild nosebleed this morning. Now resolved. Will restart Xarelto tonight and monitor closely for any further bleeding #12 UTI with the increase in patient's white count up to 13.3. Check urine culture. We'll await further antibiotic recommendations per infectious disease Anticipate discharge to [facility] possibly tomorrow I performed an examination of the patient and discussed their management with the physician Property Clerk. I have reviewed the Physician Property Clerk's notes and agree with the documented findings and plan of care
--- NOTE | 2017-09-22 14:40 | PN ---
PROGRESS NOTE DATE OF SERVICE: 09/22/2017 REASON FOR FOLLOWUP: Bilateral extremity wound cellulitis. INTERVAL HISTORY: The patient is afebrile. She is currently breathing comfortably. Denies having any chest pain, shortness of breath or cough. Did mention she did have slight pain in the foot but unable to elaborate any further. No nausea, vomiting and no diarrhea. PHYSICAL EXAMINATION: Blood pressure 120/56 with a pulse of 63, temperature of 97.1, she is 99% on 2 L nasal cannula. General description is an elderly female lying in bed in no distress. RESPIRATORY SYSTEM: Unlabored breathing, clear to auscultation anteriorly. HEART: S1, S2. Regular rate and rhythm. ABDOMEN: Soft, no tenderness. Bilateral legs, did have by the RN and did mention that overall her redness has improved and no drainage. DIAGNOSTIC IMPRESSION AND PLAN: Patient with bilateral lower extremity venostasis ulcer with secondary cellulitis. The patient seemed to have improvement with cefazolin with plan to finish therapy with oral Keflex for another week along with an Myles wrap to keep the swelling down. Continue supportive care. MMODL / IJN: [id number] /
[2017-09-22] MEDS: RIVAROXABAN 15 MG TAB PO SCH (17:24)
[2017-09-22 17:25] LABS: Glucose,Whole Blood 159 mg/dL (75-99)
[2017-09-22] MEDS: traMADol 50 MG TAB PO PRN (17:44)
[2017-09-22 20:49] LABS: Glucose,Whole Blood 229 mg/dL (75-99)
[2017-09-23] MEDS: ONDANSETRON 4 MG/2 ML VIAL IVP PRN (02:35)
[2017-09-23] MEDS: LEVOTHYROXINE 88 MCG TAB PO SCH (06:45)
[2017-09-23] MEDS: ALBUTEROL NEBULIZED 2.5 MG/3 ML INHALATION PRN (07:15)
[2017-09-23 07:17] LABS: Glucose,Whole Blood 138 mg/dL (75-99)
[2017-09-23] MEDS: FERROUS SULFATE 325 MG TAB PO SCH ×3 (08:30→17:11)
[2017-09-23] MEDS: ISOSORBIDE MONONITRATE ER 30 MG TAB.ER.24H PO SCH (08:30)
[2017-09-23] MEDS: NYSTATIN 100,000 UNIT/ML SUSP 500,000 UNIT/5 ML CUP PO SCH ×4 (08:30→20:59)
[2017-09-23] MEDS: SPIRONOLACTONE 25 MG TAB PO SCH (08:30)
[2017-09-23] MEDS: ALLOPURINOL 300 MG TAB PO SCH (08:30)
[2017-09-23] MEDS: AMIODARONE 200 MG TAB PO SCH (08:30)
[2017-09-23] MEDS: FUROSEMIDE 20 MG TAB PO SCH ×2 (08:30→17:11)
[2017-09-23] MEDS: PANTOPRAZOLE 40 MG TABLET PO SCH (08:30)
[2017-09-23] MEDS: MECLIZINE 25 MG TAB PO SCH ×3 (08:30→17:12)
[2017-09-23] MEDS: INSULIN ASPART 100 UNIT/ML 1 ML 10 ML VIAL SQ SCH ×3 (08:31→18:35)
[2017-09-23] MEDS: NEBIVOLOL 5 MG TAB PO SCH (08:31)
[2017-09-23] MEDS: traMADol 50 MG TAB PO PRN ×2 (08:33→17:12)
[2017-09-23] MEDS: ceFAZolin IN SWFI 2 GM/20 ML SYRINGE IVP SCH ×2 (08:36→20:57)
[2017-09-23 09:36] LABS: Albumin 3.6 g/dL (3.5-5.0); Calcium 9.1 mg/dL (8.4-10.2); Potassium 4.9 mmol/L (3.5-5.1); Total Bilirubin 0.2 mg/dL (0.2-1.3); Total Protein 6.2 g/dL (6.3-8.2)
[2017-09-23 09:38] LABS: Anisocytosis Moderate; Basophils # (A) 0.1 k/uL (0-0.2); Basophils % (A) 0 %; Eosinophils # (A) 0.4 k/uL (0-0.7); Eosinophils % (A) 3 %; HCT 28.6 % (34.0-46.0); HGB 8.2 gm/dL (11.4-16.0); Hypochromasia Marked; Lymphocytes # (A) 1.2 k/uL (1.0-4.8); Lymphocytes % (A) 9 %; MCH 26.6 pg (25.0-35.0); MCHC 28.5 g/dL (31.0-37.0); MCV 93.2 fL (80.0-100.0); Macrocytosis Slight; Mean Platelet Volume 8.5; Monocytes # (A) 0.4 k/uL (0-1.0); Monocytes % (A) 3 %; Neutrophils % (A) 83 %; Platelet Count 270 k/uL (150-450); Poikilocytosis Slight; RBC 3.07 m/uL (3.80-5.40); RDW 23.1 % (11.5-15.5); WBC 13.2 k/uL (3.8-10.6)
[2017-09-23 12:39] LABS: Glucose,Whole Blood 175 mg/dL (75-99)
--- NOTE | 2017-09-23 13:47 | P.PN ---
Subjective Progress Note Date: 09/23/17 Tamar Dominguez is a 77-year-old female presenting from rehab for evaluation of worsening labs and lower extremity cellulitis. Patient was recently discharged from [facility] to a rehab unit after an admission for anemia and evidence of erosive gastritis during the last admission patient received 2 units of red blood cells. She has known history of chronic atrial fibrillation and known history of lower extremity DVT and pulmonary embolism she was maintained on Xarelto. Patient was noticed to have worsening lower extremity swelling and erythema and kidney function was worsening she was sent back to emergency room and was readmitted to [facility]. On 09/19/2017 patient is alert and oriented 3 in no apparent distress she had a prolonged episode of nosebleed this morning, ENT consultation was requested for possible cauterization however nosebleed stopped with Afrin nose spray, anticoagulation is put on hold at this time and humidification added to oxygen supply, otherwise patient is feeling well she denies any chest pain or shortness of breath no cough no nausea no vomiting no diarrhea no abdominal pain and no urinary symptoms. On 09/20/2017 patient is alert and oriented 3 eating on the edge of the bed. She was seen yesterday by Dr. Muniz and underwent nasal cauterization due to recurrent prolonged episodes of bleeding, she remains off Xarelto today, she did not have any recurrence of her bleeding 09/21/2017 patient reports bumping the left side of her nose which then caused small nosebleed to the left nostril. This has now stopped. We will again continue to hold the Xarelto. Patient also had increase in her white count up to 13.3. A urinalysis is positive awaiting urine culture and will await further infectious disease recommendations in regards to antibiotics. She is currently on consult for cellulitis. She is also receiving IV iron for her iron deficiency anemia. Creatinine has been climbed up to 1.90 nephrology following. patient has no new complaints 09/22/2017 patient had a small nosebleed this morning. Now resolved. No new complaints. Still evidence of some lower extremity cellulitis. WBC 13, hemoglobin 8 creatinine up to 2.08 On 09/23/2017 agent is alert and oriented 3 in no apparent distress, she was resumed on Xarelto 15 mg by mouth daily yesterday, so far no nasal bleeding, continues to be on IV antibiotic for lower extremity cellulitis, she denies any chest pain shortness of breath has improved, kidney function is stable. Objective - Vital Signs Vital signs: Vital Signs Temp 97.9 F 09/23/17 06:26 Pulse 66 09/23/17 07:27 Resp 18 09/23/17 08:00 BP 111/53 09/23/17 06:26 Pulse Ox 100 09/23/17 07:18 Intake & Output 09/22/17 09/23/17 09/23/17 18:59 06:59 18:59 Intake Total 400 Balance 400 Weight 137 kg Intake: Oral 400 Other: Voiding Method Bedside Commode Bedside Commode # Voids 4 2 # Bowel Movements 0 - Exam In general patient is alert and oriented 3 in no apparent distress HEENT head normocephalic and atraumatic Neck is supple no JVD no goiter no lymphadenopathy Chest exam reveals a few scattered crackles bilaterally no wheezing Cardiac exam reveals regular heart sounds S1 and S2 no gallops no murmurs Abdomen is soft obese nontender nondistended no organomegaly no palpable masses was normal bowel sounds Extremity exam reveals lower extremity edema no cyanosis or clubbing Neurological examination reveals no gross focal deficit - Labs CBC & Chem 7: 09/23/17 08:58 09/23/17 08:58 Labs: Abnormal Lab Results - Last 24 Hours (Table) 09/22/17 09/22/17 09/23/17 Range/Units 17:22 20:48 07:14 WBC (3.8-10.6) k/uL RBC (3.80-5.40) m/uL Hgb (11.4-16.0) gm/dL Hct (34.0-46.0) % MCHC (31.0-37.0) g/dL RDW (11.5-15.5) % Neutrophils # (1.3-7.7) k/uL BUN (7-17) mg/dL Creatinine (0.52-1.04) mg/dL Glucose (74-99) mg/dL POC Glucose (mg/dL) 159 H 229 H 138 H (75-99) mg/dL Total Protein (6.3-8.2) g/dL 09/23/17 09/23/17 09/23/17 Range/Units 08:58 08:58 12:18 WBC 13.2 H (3.8-10.6) k/uL RBC 3.07 L (3.80-5.40) m/uL Hgb 8.2 L (11.4-16.0) gm/dL Hct 28.6 L (34.0-46.0) % MCHC 28.5 L (31.0-37.0) g/dL RDW 23.1 H (11.5-15.5) % Neutrophils # 11.0 H (1.3-7.7) k/uL BUN 81 H* (7-17) mg/dL Creatinine 1.95 H (0.52-1.04) mg/dL Glucose 220 H (74-99) mg/dL POC Glucose (mg/dL) 175 H (75-99) mg/dL Total Protein 6.2 L (6.3-8.2) g/dL Microbiology - Last 24 Hours (Table) 09/22/17 08:10 Urine Culture - Final Urine,Voided 09/17/17 14:46 Blood Culture - Preliminary Blood No Growth after 120 hours Assessment and Plan Plan: #1 acute on chronic renal failure, stage4: Creatinine up to 2.08. Nephrology following. Appreciate their input acute kidney injury likely due to cardiorenal. #2 bilateral lower extremity venous stasis ulcer with secondary cellulitis: Continue Kefzol. Patient still having cellulitis changes with only mild improvement. Infectious disease following #3 iron deficiency anemia: Iron studies showed low iron and iron saturation is low. Patient is receive 3 doses of IV iron Hemoglobin down from 8.3-8. Repeat CBC in a.m. #4 previous history of deep venous thrombosis and pulmonary embolism #5 underlying history of rheumatoid arthritis #6 underlying history of diabetes mellitus #7 underlying history of atrial fibrillation. Xarelto will be resumed tonight #8 underlying history of congestive heart failure #9 and underlying history of sleep apnea maintained on CPAP #10 underlying history of hypothyroidism, TSH is elevated at 25, will increase dose of levothyroxine 75 g daily to 88 g daily #11 prolonged episode of nasal bleeding this morning, patient underwent cauterization was Dr. Muniz. Patient had a mild nosebleed this morning. Now resolved. Will restart Xarelto tonight and monitor closely for any further bleeding #12 UTI with the increase in patient's white count up to 13.3. Check urine culture. We'll await further antibiotic recommendations per infectious disease At this time patient is maintained on cefazolin 2 g IV every 12 hours Consultation for infectious disease and nephrology are ongoing hemoglobin A1c ordered on 09/18/2017 is reported as 6.0 Continue current management will follow in a.m.
[2017-09-23] MEDS: RIVAROXABAN 15 MG TAB PO SCH (17:11)
[2017-09-23 17:32] LABS: Glucose,Whole Blood 158 mg/dL (75-99)
[2017-09-23] MEDS ORDERED: LACTULOSE 20 GM/30 ML CUP PO ONE (19:15)
--- NOTE | 2017-09-23 21:08 | PN ---
PROGRESS NOTE DATE OF SERVICE: 09/23/2017. REASON FOR FOLLOWUP: Bilateral lower extremity wound cellulitis. INTERVAL HISTORY: The patient is afebrile. She is breathing comfortably. Denies any significant chest pain. Occasional cough. No abdominal pain. area. EXAMINATION: Blood pressure 112/59 with a pulse of 84, temperature of 97.1. She is 94% on 2 L nasal cannula. General description is an elderly female up in the bed in no distress. Respiratory system: Unlabored breathing with decreased breath sounds. No wheeze. Heart S1, S2. Regular rate and rhythm. Abdomen soft. No tenderness. Legs are currently wrapped up, swelling persists. decreased. LABS: Hemoglobin 8.2 with white count of 13.2, BUN of 81, creatinine 1.95. DIAGNOSTIC IMPRESSION AND PLAN: Patient with bilateral lower extremity venous stasis ulcer with secondary cellulitis, currently on cefazolin, will be transitioned to p.o. Cipro on discharge. Local wound care to continue with Aquacel silver dressing and an Myles wrap to keep the swelling down. Continue supportive care. MMODL / IJN: [id number] /
[2017-09-23 21:23] LABS: Glucose,Whole Blood 171 mg/dL (75-99)
[2017-09-24] MEDS: ALBUTEROL NEBULIZED 2.5 MG/3 ML INHALATION PRN ×5 (01:26→19:35)
--- NOTE | 2017-09-24 05:14 | PN ---
PROGRESS NOTE Patient is seen for followup for acute kidney injury. Her renal function is fairly stable for the last 2 to 3 days with creatinine staying at 1.9 to 2 mg/dL. She has been as low as 1.4 mg/dL. Currently, patient is maintained on oral Lasix. Her lower extremity edema is fairly stable. She is being treated for bilateral lower extremity cellulitis. PHYSICAL EXAMINATION: On examination, blood pressure this morning was 120/56, heart rate 84 per minute. Patient is afebrile. EXAMINATION OF THE HEART: S1, S2. EXAMINATION OF THE LUNGS: Bilateral breath sounds are heard. Abdomen is soft, morbidly obese. Examination of the lower extremities shows bilateral extremities to be wrapped. Significant edema and chronic skin changes are noted. LABS: Labs show sodium 140, potassium 4.9, BUN 81, serum creatinine 1.95. Hemoglobin 8.2 g/dL. ASSESSMENT: 1. Acute kidney injury mainly cardiorenal, currently stable. Renal function is fairly stable over the last 2 to 3 days. Continue current dose of oral Lasix. Patient will need followup as outpatient. 2. Chronic kidney disease with baseline creatinine about 1.4. The patient is recovering from previous acute kidney injury when creatinine was as high as 8.8 mg/dL. She does not have any proteinuria and the ultrasound was unremarkable, it showed bilateral renal cysts. 3. Bilateral lower extremity cellulitis, maintained on antibiotics. 4. Epistaxis, status post cauterization by Dr. Brewster. Patient has been restarted on Xarelto and she states bleeding had recurred this morning. 5. Iron deficiency, status post IV iron. PLAN: Continue current dose of oral Lasix. The patient will need outpatient followup. MMODL / IJN: [id number] /
[2017-09-24] MEDS: LEVOTHYROXINE 88 MCG TAB PO SCH (06:39)
[2017-09-24 07:17] LABS: Glucose,Whole Blood 138 mg/dL (75-99)
[2017-09-24 07:50] LABS: Anisocytosis Moderate; Basophils % (A) 0 %; Eosinophils # (A) 0.2 k/uL (0-0.7); Eosinophils % (A) 2 %; HCT 26.4 % (34.0-46.0); HGB 7.7 gm/dL (11.4-16.0); Hypochromasia Marked; Lymphocytes # (A) 1.3 k/uL (1.0-4.8); Lymphocytes % (A) 9 %; MCH 26.6 pg (25.0-35.0); MCV 91.5 fL (80.0-100.0); Macrocytosis Slight; Mean Platelet Volume 7.9; Monocytes # (A) 0.6 k/uL (0-1.0); Monocytes % (A) 4 %; Neutrophils # (A) 11.2 k/uL (1.3-7.7); Neutrophils % (A) 82 %; Platelet Count 256 k/uL (150-450); Poikilocytosis Slight; RBC 2.88 m/uL (3.80-5.40); RDW 22.8 % (11.5-15.5); WBC 13.7 k/uL (3.8-10.6)
[2017-09-24 09:02] LABS: Albumin 3.2 g/dL (3.5-5.0); Potassium 5.1 mmol/L (3.5-5.1); Total Bilirubin 0.2 mg/dL (0.2-1.3); Total Protein 5.7 g/dL (6.3-8.2)
[2017-09-24] MEDS: PANTOPRAZOLE 40 MG TABLET PO SCH (09:08)
[2017-09-24] MEDS: SPIRONOLACTONE 25 MG TAB PO SCH (09:08)
[2017-09-24] MEDS: ALLOPURINOL 300 MG TAB PO SCH (09:09)
[2017-09-24] MEDS: MECLIZINE 25 MG TAB PO SCH ×3 (09:09→18:50)
[2017-09-24] MEDS: NEBIVOLOL 5 MG TAB PO SCH (09:09)
[2017-09-24] MEDS: FERROUS SULFATE 325 MG TAB PO SCH ×3 (09:09→17:03)
[2017-09-24] MEDS: FUROSEMIDE 20 MG TAB PO SCH ×2 (09:09→17:03)
[2017-09-24] MEDS: NYSTATIN 100,000 UNIT/ML SUSP 500,000 UNIT/5 ML CUP PO SCH ×4 (09:09→22:18)
[2017-09-24] MEDS: ISOSORBIDE MONONITRATE ER 30 MG TAB.ER.24H PO SCH (09:09)
[2017-09-24] MEDS: INSULIN ASPART 100 UNIT/ML 1 ML 10 ML VIAL SQ SCH ×3 (09:10→17:40)
[2017-09-24] MEDS: AMIODARONE 200 MG TAB PO SCH (09:10)
[2017-09-24] MEDS: ceFAZolin IN SWFI 2 GM/20 ML SYRINGE IVP SCH ×2 (09:15→21:49)
[2017-09-24] MEDS ORDERED: DARBEPOETIN ALFA 40 MCG/0.4 ML SYRINGE SQ SCH (11:00)
--- NOTE | 2017-09-24 11:39 | P.PN ---
Subjective Progress Note Date: 09/24/17 Tamar Dominguez is a 77-year-old female presenting from rehab for evaluation of worsening labs and lower extremity cellulitis. Patient was recently discharged from [facility] to a rehab unit after an admission for anemia and evidence of erosive gastritis during the last admission patient received 2 units of red blood cells. She has known history of chronic atrial fibrillation and known history of lower extremity DVT and pulmonary embolism she was maintained on Xarelto. Patient was noticed to have worsening lower extremity swelling and erythema and kidney function was worsening she was sent back to emergency room and was readmitted to [facility]. 09/21/2017 patient reports bumping the left side of her nose which then caused small nosebleed to the left nostril. This has now stopped. We will again continue to hold the Xarelto. Patient also had increase in her white count up to 13.3. A urinalysis is positive awaiting urine culture and will await further infectious disease recommendations in regards to antibiotics. She is currently on consult for cellulitis. She is also receiving IV iron for her iron deficiency anemia. Creatinine has been climbed up to 1.90 nephrology following. patient has no new complaints 09/22/2017 patient had a small nosebleed this morning. Now resolved. No new complaints. Still evidence of some lower extremity cellulitis. WBC 13, hemoglobin 8 creatinine up to 2.08 09/24/2017 patient reports that she is starting to feel better. She is noticed some improvement in her legs. She reports small scant amount of blood in her bowel movement today. However, she reports she is constipated and had to strain. Yesterday evening patient also was disimpacted. She feels she may have another bowel movement this morning. Her hemoglobin has dropped to 7.7. She was seen by nephrology and they have added Aranesp. Patient is also received IV iron during this admission Objective - Vital Signs Vital signs: Vital Signs Temp 98.4 F 09/24/17 06:30 Pulse 64 09/24/17 11:25 Resp 16 09/24/17 08:00 BP 109/63 09/24/17 06:30 Pulse Ox 96 09/24/17 07:35 Intake & Output 09/23/17 09/24/17 09/24/17 18:59 06:59 18:59 Intake Total 400 Balance 400 Weight 131.5 kg Intake: Oral 400 Other: # Voids 3 2 # Bowel Movements 1 - Exam Head normocephalic Neck supple Lungs clear to auscultation bilaterally no wheezing or crackles Heart regular rate and rhythm S1-S2, no rub or gallop Abdomen is soft nontender nondistended positive bowel sounds no hepatosplenomegaly Extremities swelling and cellulitis changes in the lower extremities. Legs are currently wrapped Neuro alert and orientated to 3 - Labs CBC & Chem 7: 09/24/17 07:30 09/24/17 07:30 Labs: Abnormal Lab Results - Last 24 Hours (Table) 09/23/17 09/23/17 09/23/17 Range/Units 12:18 17:27 21:18 WBC (3.8-10.6) k/uL RBC (3.80-5.40) m/uL Hgb (11.4-16.0) gm/dL Hct (34.0-46.0) % MCHC (31.0-37.0) g/dL RDW (11.5-15.5) % Neutrophils # (1.3-7.7) k/uL BUN (7-17) mg/dL Creatinine (0.52-1.04) mg/dL Glucose (74-99) mg/dL POC Glucose (mg/dL) 175 H 158 H 171 H (75-99) mg/dL Total Protein (6.3-8.2) g/dL Albumin (3.5-5.0) g/dL 09/24/17 09/24/17 09/24/17 Range/Units 07:11 07:30 07:30 WBC 13.7 H (3.8-10.6) k/uL RBC 2.88 L (3.80-5.40) m/uL Hgb 7.7 L (11.4-16.0) gm/dL Hct 26.4 L (34.0-46.0) % MCHC 29.0 L (31.0-37.0) g/dL RDW 22.8 H (11.5-15.5) % Neutrophils # 11.2 H (1.3-7.7) k/uL BUN 81 H* (7-17) mg/dL Creatinine 1.75 H (0.52-1.04) mg/dL Glucose 120 H (74-99) mg/dL POC Glucose (mg/dL) 138 H (75-99) mg/dL Total Protein 5.7 L (6.3-8.2) g/dL Albumin 3.2 L (3.5-5.0) g/dL Microbiology - Last 24 Hours (Table) 09/17/17 14:46 Blood Culture - Final Blood No Growth after 144 hours 09/22/17 08:10 Urine Culture - Final Urine,Voided Assessment and Plan Assessment: #1 acute on chronic renal failure, stage 4: Creatinine is trending down. acute kidney injury likely due to cardiorenal. Nephrology following closely #2 bilateral lower extremity venous stasis ulcer with secondary cellulitis: Continue Kefzol. Infectious disease following #3 anemia secondary to her chronic kidney disease and iron deficiency anemia: First iron study was low at 41. Repeat iron studies ordered. Patient's hemoglobin has dropped to 7.7 with receiving 3 doses of IV iron. Nephrology has added Aranesp. Repeat CBC in a.m. #4 previous history of deep venous thrombosis and pulmonary embolism #5 underlying history of rheumatoid arthritis #6 underlying history of diabetes mellitus #7 underlying history of atrial fibrillation. Patient was restarted on her Xarelto. No further nosebleeds #8 underlying history of congestive heart failure #9 and underlying history of sleep apnea maintained on CPAP #10 underlying history of hypothyroidism, TSH is elevated at 25, will increase dose of levothyroxine 75 g daily to 88 g daily #11 prolonged episode of nasal bleeding this morning, patient underwent cauterization was Dr. Muniz. Patient had a mild nosebleed this morning. Now resolved. Will restart Xarelto tonight and monitor closely for any further bleeding #12 UTI : Urine culture negative. Continue with kefzol #13 constipation we'll add Colace and MiraLAX to help with patient's straining Anticipate discharge to [facility] of possibly tomorrow, if hemoglobin shows improvement I performed an examination of the patient and discussed their management with the physician Applications Scientist. I have reviewed the Physician Applications Scientist's notes and agree with the documented findings and plan of care
--- NOTE | 2017-09-24 11:42 | PN ---
PROGRESS NOTE The patient is seen for followup for chronic kidney disease and acute kidney injury. Currently, she is sitting up on the side of the bed. There has not been much change in the overall general condition over the last few days. Serum creatinine is slightly improved today at 1.75 mg/dL. PHYSICAL EXAMINATION: On examination, blood pressure is 109/63, heart rate 65 per minute. Patient is afebrile. EXAMINATION OF THE HEART: S1, S2. EXAMINATION OF THE LUNGS: Decreased breath sounds at bases. Abdomen is soft, nontender, obese. Examination of lower extremities shows bilateral extremities to be wrapped. LABS: Labs show sodium of 139, potassium 5.1, BUN 81, serum creatinine 1.75, hemoglobin 7.7 g/dL. ASSESSMENT: 1. Acute kidney injury, cardiorenal, currently stable. Serum creatinine is slightly improved from 2 days ago. Continue the Lasix at the current dose. 2. Chronic kidney disease with baseline creatinine about 1.4, recovering acute tubular necrosis from January at which time serum creatinine was as high as 8.8 mg/dL. The patient does not have any proteinuria and her ultrasound was unremarkable except for bilateral renal cysts. 3. Bilateral lower extremity cellulitis and bilateral edema. 4. Epistaxis, status post cauterization by Dr. Brewster. No further bleeding now. 5. Iron deficiency status post IV iron. 6. Anemia associated with iron deficiency. The hemoglobin is trending down. I will give her a dose of Aranesp as well. MMODL / IJN: [id number] /
[2017-09-24 12:04] VITALS: BMI 46.7
[2017-09-24 12:13] LABS: Glucose,Whole Blood 161 mg/dL (75-99)
[2017-09-24] MEDS: DOCUSATE 100 MG CAP PO SCH ×2 (12:55→21:40)
--- NOTE | 2017-09-24 13:57 | PN ---
PROGRESS NOTE DATE OF SERVICE: 09/24/2017 REASON FOR FOLLOWUP: Bilateral extremity wound cellulitis. INTERVAL HISTORY: The patient is afebrile, she is breathing comfortably. Denies having any chest pain. No cough, no abdominal pain. No pain in her legs area. PHYSICAL EXAMINATION: Blood pressure 149/63 with a pulse of 52, temperature 98.4, she is 97% on 2 L nasal cannula. General description is an elderly female, lying in bed in no distress. RESPIRATORY SYSTEM: Unlabored breathing, clear to auscultation anteriorly. HEART: S1, S2. Regular rate and rhythm. ABDOMEN: Soft, no tenderness. Legs are currently wrapped up, did mention that the overall swelling is improved, but the dressing. LABS: Hemoglobin is 7.7, white count 13.7, creatinine is down to 1.75. DIAGNOSTIC IMPRESSION AND PLAN: Patient with bilateral extremity wound cellulitis. The patient is currently on cefazolin, Plan to finish therapy with oral Keflex. He will continue with Myles wrap and Aquacel dressing to the open area. Continue supportive care. MMODL / IJN: [id number] /
[2017-09-24 17:04] LABS: Iron Saturation 13.5 (12.00-45.00)
[2017-09-24] MEDS: RIVAROXABAN 15 MG TAB PO SCH (17:04)
[2017-09-24 17:30] LABS: Glucose,Whole Blood 246 mg/dL (75-99)
[2017-09-24 20:38] LABS: Glucose,Whole Blood 275 mg/dL (75-99)
[2017-09-24] MEDS ORDERED: POLYETHYLENE GLYCOL 3350 17 GM POWD.PACK PO SCH (21:00)
[2017-09-25] MEDS: traMADol 50 MG TAB PO PRN (01:23)
[2017-09-25] MEDS: LEVOTHYROXINE 88 MCG TAB PO SCH (06:31)
[2017-09-25 07:22] LABS: Glucose,Whole Blood 147 mg/dL (75-99)
[2017-09-25] MEDS: INSULIN ASPART 100 UNIT/ML 1 ML 10 ML VIAL SQ SCH ×2 (07:25→12:21)
[2017-09-25] MEDS: ALBUTEROL NEBULIZED 2.5 MG/3 ML INHALATION PRN ×3 (07:34→15:54)
[2017-09-25 08:25] VITALS: BP 114/56; RESP 26
[2017-09-25] MEDS: FUROSEMIDE 20 MG TAB PO SCH ×2 (08:28→16:54)
[2017-09-25] MEDS: ALLOPURINOL 300 MG TAB PO SCH (08:28)
[2017-09-25] MEDS: NEBIVOLOL 5 MG TAB PO SCH (08:29)
[2017-09-25] MEDS: MECLIZINE 25 MG TAB PO SCH ×2 (08:29→12:22)
[2017-09-25] MEDS: NYSTATIN 100,000 UNIT/ML SUSP 500,000 UNIT/5 ML CUP PO SCH ×2 (08:29→12:23)
[2017-09-25] MEDS: PANTOPRAZOLE 40 MG TABLET PO SCH (08:29)
[2017-09-25] MEDS: FERROUS SULFATE 325 MG TAB PO SCH ×2 (08:29→12:22)
[2017-09-25] MEDS: AMIODARONE 200 MG TAB PO SCH (08:29)
[2017-09-25] MEDS: ISOSORBIDE MONONITRATE ER 30 MG TAB.ER.24H PO SCH (08:29)
[2017-09-25] MEDS: DOCUSATE 100 MG CAP PO SCH (08:29)
[2017-09-25] MEDS: ceFAZolin IN SWFI 2 GM/20 ML SYRINGE IVP SCH (08:29)
[2017-09-25] MEDS: SPIRONOLACTONE 25 MG TAB PO SCH (08:29)
[2017-09-25 08:38] LABS: Anisocytosis Moderate; Basophils # (A) 0.1 k/uL (0-0.2); Basophils % (A) 0 %; Eosinophils # (A) 0.4 k/uL (0-0.7); Eosinophils % (A) 3 %; HCT 27.2 % (34.0-46.0); HGB 8.1 gm/dL (11.4-16.0); Hypochromasia Marked; Lymphocytes # (A) 1.3 k/uL (1.0-4.8); Lymphocytes % (A) 10 %; MCH 27.4 pg (25.0-35.0); MCHC 29.7 g/dL (31.0-37.0); MCV 92.4 fL (80.0-100.0); Macrocytosis Slight; Monocytes # (A) 0.4 k/uL (0-1.0); Monocytes % (A) 3 %; Neutrophils # (A) 10.6 k/uL (1.3-7.7); Neutrophils % (A) 81 %; Platelet Count 273 k/uL (150-450); Poikilocytosis Slight; RBC 2.95 m/uL (3.80-5.40); RDW 22.9 % (11.5-15.5)
[2017-09-25 08:40] LABS: Albumin 3.5 g/dL (3.5-5.0); Calcium 9.2 mg/dL (8.4-10.2); Potassium 5.2 mmol/L (3.5-5.1); Total Bilirubin 0.3 mg/dL (0.2-1.3); Total Protein 6.1 g/dL (6.3-8.2)
[2017-09-25 11:16] LABS: Glucose,Whole Blood 195 mg/dL (75-99)
--- NOTE | 2017-09-25 13:13 | P.DS ---
Providers Date of admission: 09/17/17 17:52 Expected date of discharge: 09/25/17 Attending physician: Michel Oliver Consults: 09/18/17 12:24 Consult Physician Routine Consulting Provider: Yahaira Barber Consult Reason/Comments: CKD Do you want consulting provider notified?: Yes 09/18/17 12:26 Consult Physician Routine Consulting Provider: Melly Yap Consult Reason/Comments: lower ext cellulitis Do you want consulting provider notified?: Yes 09/19/17 11:56 Consult Physician Stat Consulting Provider: Goran Mckenzie Consult Reason/Comments: excessive nose bleed, possible cauderization needed Do you want consulting provider notified?: Yes Primary care physician: Linnea Alonso Hospital Course: Discharge Diagnosis #1 acute on chronic renal failure, stage 4: Creatinine is trending down. acute kidney injury likely due to cardiorenal. Nephrology following closely. Creatinine discharge is down to 1.60. Patient seen by nephrology they are recommending that she can continue on her Lasix 60 mg twice a day. The recommending a BMP to be checked in 1 week and follow-up with Dr. Hassan in 1 week #2 bilateral lower extremity venous stasis ulcer with secondary cellulitis: Dr. Yap's is recommending keflex 500mg TID for 5 more days #3 anemia secondary to her chronic kidney disease and iron deficiency anemia: First iron study was low at 41. Repeat iron studies ordered. Patient's hemoglobin has dropped to 7.7 with receiving 3 doses of IV iron. Nephrology has added Aranesp. Hemoglobin is 8.1 at discharge. Did show improvement with Aranesp. Patient also received IV iron. Patient unable to take oral iron due to ALLERGY #4 previous history of deep venous thrombosis and pulmonary embolism #5 underlying history of rheumatoid arthritis #6 underlying history of diabetes mellitus #7 underlying history of atrial fibrillation. Patient was restarted on her Xarelto. No further nosebleeds #8 underlying history of congestive heart failure #9 and underlying history of sleep apnea maintained on CPAP #10 underlying history of hypothyroidism, TSH is elevated at 25, will increase dose of levothyroxine 75 g daily to 88 g daily #11 prolonged episode of nasal bleeding this morning, patient underwent cauterization was Dr. Muniz. Patient had a mild nosebleed this morning. Now resolved. Will restart Xarelto tonight and monitor closely for any further bleeding #12 UTI : Urine culture negative. Treated during hospitalization #13 constipation improved with Colace and MiraLAX #14 hyperkalemia potassium 5.2. Should improve with Lasix. And continue low potassium diet #14 history of lower extremity DVT on Xarelto Hospital course Tamar Dominguez is a 77-year-old female presenting from rehab for evaluation of worsening labs and lower extremity cellulitis. Patient was recently discharged from [facility] to a rehab unit after an admission for anemia and evidence of erosive gastritis during the last admission patient received 2 units of red blood cells. She has known history of chronic atrial fibrillation and known history of lower extremity DVT and pulmonary embolism she was maintained on Xarelto. Patient was noticed to have worsening lower extremity swelling and erythema and kidney function was worsening she was sent back to emergency room and was readmitted to [facility]. Patient had nosebleed during this admission required to be seen by ENT 100 cauterization. Has had improvement in nosebleeds. She's been able to tolerate restarting Xarelto. She's been followed closely by nephrology and infectious disease during this admission. Her acute kidney injury was likely cardiorenal. Creatinine at discharge is 1.6 which is showing improvement. Dr. Barber is recommending BMP to be checked in 1 week and follow-up in the office in one week. Infectious disease is recommending Keflex for 5 more days for her lower extremity cellulitis. During this admission patient did have anemia requiring IV iron in a dose of Aranesp. Unable to give oral iron because of an ALLERGY to iron supplements. Hemoglobin at discharge is 8.1. Recommend checking CBC on Thursday. Patient will be discharged back to [facility] I performed an examination of the patient and discussed their management with the physician Information Assurance. I have reviewed the Physician Information Assurance's notes and agree with the documented findings and plan of care Patient Condition at Discharge: Stable Plan - Discharge Summary Discharge Rx Participant: No New Discharge Prescriptions: New Cephalexin [Keflex] 500 mg PO Q8HR #15 cap Docusate [Colace] 100 mg PO BID cap Levothyroxine Sodium [Synthroid] 88 mcg PO DAILY@0630 tab Polyethylene Glycol 3350 [Miralax] 17 gm PO HS powd.pack Continue Albuterol Inhaler [Ventolin Hfa Inhaler] 2 puff INHALATION RT-Q4H PRN PRN Reason: Shortness Of Breath Insulin Lispro [humaLOG Kwikpen] See Protocol SQ AC-TID@,, Meclizine [Antivert] 25 mg PO TID@,, Albuterol Nebulized [Ventolin Nebulized] 2.5 mg INHALATION RT-Q4H PRN PRN Reason: Shortness Of Breath Rivaroxaban [Xarelto] 15 mg PO HS Allopurinol [Zyloprim] 300 mg PO DAILY Isosorbide Mononitrate ER [Imdur] 30 mg PO DAILY Amiodarone [Cordarone] 200 mg PO DAILY tab Nebivolol [Bystolic] 5 mg PO DAILY tab Co Q-10 50mg 50 mg PO DAILY Ferrous Sulfate [Iron (65 MG Elemental)] 325 mg PO TID@0700,1200,1700 Furosemide [Lasix] 60 mg PO BID Pantoprazole [Protonix] 40 mg PO DAILY@0700 Spironolactone [Aldactone] 25 mg PO DAILY@0800 traMADol HCL [Ultram] 50 mg PO Q12H PRN #6 tablet PRN Reason: Pain Discontinued Levothyroxine Sodium [Synthroid] 75 mcg PO DAILY Discharge Medication List Albuterol Inhaler [Ventolin Hfa Inhaler] 2 puff INHALATION RT-Q4H PRN 04/29/16 [ History] Insulin Lispro [humaLOG Kwikpen] See Protocol SQ AC-TID@,,07/24/16 [ History] Meclizine [Antivert] 25 mg PO TID@,,07/24/16 [History] Albuterol Nebulized [Ventolin Nebulized] 2.5 mg INHALATION RT-Q4H PRN 01/16/17 [ History] Allopurinol [Zyloprim] 300 mg PO DAILY 01/16/17 [History] Isosorbide Mononitrate ER [Imdur] 30 mg PO DAILY 01/16/17 [History] Rivaroxaban [Xarelto] 15 mg PO HS 01/16/17 [History] Amiodarone [Cordarone] 200 mg PO DAILY tab 01/22/17 [Rx] Nebivolol [Bystolic] 5 mg PO DAILY tab 08/28/17 [Rx] Co Q-10 50mg 50 mg PO DAILY 09/17/17 [History] Ferrous Sulfate [Iron (65 MG Elemental)] 325 mg PO TID@0700,1200,1700 09/17/17 [ History] Furosemide [Lasix] 60 mg PO BID 09/17/17 [History] Pantoprazole [Protonix] 40 mg PO DAILY@0700 09/17/17 [History] Spironolactone [Aldactone] 25 mg PO DAILY@0800 09/17/17 [History] Cephalexin [Keflex] 500 mg PO Q8HR #15 cap 09/25/17 [Rx] Docusate [Colace] 100 mg PO BID cap 09/25/17 [Rx] Levothyroxine Sodium [Synthroid] 88 mcg PO DAILY@0630 tab 09/25/17 [Rx] Polyethylene Glycol 3350 [Miralax] 17 gm PO HS powd.pack 09/25/17 [Rx] traMADol HCL [Ultram] 50 mg PO Q12H PRN #6 tablet 09/25/17 [Rx] Follow up Appointment(s)/Referral(s): Yahaira Barber MD [STAFF PHYSICIAN] - 1 Week Linnea Alonso DO [Primary Care Provider] - 1 Week Patient Instructions/Handouts: Acute Kidney Injury (DC), Cellulitis (DC) Activity/Diet/Wound Care/Special Instructions: Cardiac, diabetic diet. low potassium diet Activity as tolerated, elevate legs at rest, fall precautions. Use JOSTIN wraps daily. Turn every 2 hours while awake. Blood draw in one week for BMP Discharge Disposition: TRANSFER TO SNF/ECF
--- NOTE | 2017-09-25 14:55 | PN ---
PROGRESS NOTE DATE OF SERVICE: 09/25/2017 REASON FOR FOLLOWUP: Bilateral extremity wound cellulitis. INTERVAL HISTORY: The patient is afebrile. She is currently breathing comfortably. No chest pain. No cough. No abdominal pain or any diarrhea. Denies any pain in the leg area. PHYSICAL EXAMINATION: Blood pressure 114/56 with a pulse of 76, temperature of 97.4, she is 96% on 2 L nasal cannula. General description is an elderly female, lying in bed in no distress. RESPIRATORY SYSTEM: Unlabored breathing, clear to auscultation anteriorly. HEART: S1, S2. Regular rate and rhythm. ABDOMEN: Soft, no tenderness. Leg with swelling but the redness has resolved. The wounds have healed up. DIAGNOSTIC IMPRESSION AND PLAN: Patient with bilateral lower extremity wound with secondary cellulitis. Patient has shown clinical improvement on cefazolin. She will finish therapy with oral Keflex for another 5 days. The wounds have healed. Local care with Myles wrap to keep the swelling down. Continue supportive care. MMODL / IJN: [id number] /
[2017-09-25 15:13] VITALS: TEMP 97
--- NOTE | 2017-09-25 15:28 | PN ---
PROGRESS NOTE Patient is seen for followup for CKD. She is currently stable in terms of her renal function with serum creatinine at baseline of about 1.6 to 1.7 mg/dL. She has been as low as 1.4 previously. Patient did have acute kidney injury on January of 2017 with serum creatinine about 8.8 mg/dL at that time. Since then, her renal function has been slowly improving. She was currently admitted to the hospital with bilateral lower extremity cellulitis and volume overload. Patient was diuresed and currently she is maintained on oral Lasix and has been staying fairly stable. PHYSICAL EXAMINATION: Blood pressure is 114/56, heart rate 63 per minute. She is afebrile. Examination of the heart, S1, S2. Examination of the lungs, decreased breath sounds at the bases. Abdomen is soft, nontender, and obese. Examination of the lower extremity shows bilateral extremities with chronic skin changes, chronic edema, and the patient had cellulitis and edema, which seems to have improved now. LABS: Show sodium 138, potassium 5.2, chloride 96, BUN 85, serum creatinine 1.6, hemoglobin 8.1 g/dL. ASSESSMENT: 1. Acute kidney injury, mainly cardiorenal, currently improved. 2. Chronic kidney disease secondary to nephrosclerosis and resolving ATN from January at which time serum creatinine was as high as 8.8 mg/dL. There is no evidence of obstructive uropathy and patient is maintained on oral Lasix which I will continue for now. 3. Mild hyperkalemia. Patient will be maintained on low-potassium diet. 4. Anemia of chronic disease, maintained on Aranesp, iron was 44. Iron saturation was at 13, and patient has received IV iron. PLAN: Patient is stable for discharge on current dose of Lasix. Will follow up as outpatient in about 1 to 2 weeks. She should be maintained on a low-potassium diet. MMODL / IJN: [id number] /
[2017-09-25 16:06] VITALS: PULSE 72
--- NOTE | 2017-09-29 07:25 | CDI ---
Last Revision, May 2017 Documentation Clarification Form Date: 09/18/2017 1:50:00 PM Resubmitted 09/29/2017 07:22:00 AM From: Mary Kay Blanco CCS, CCDS Admit Date: 09/17/2017 5:52:00 PM Patient Name: Tamar Dominguez Visit Number: [id number] Discharge Date: 09/25/2017 ATTENTION: The Clinical Documentation Specialists (CDI) and [facility] Coding Staff appreciate your assistance in clarifying documentation. Please respond to the clarification below the line at the bottom and electronically sign. The CDI & [facility] Coding staff will review the response and follow-up if needed. Please note: Queries are made part of the Legal Health Record. If you have any questions, please contact the author of this message via ITS. Dr. Michel Oliver: Presented from rehab with worsening renal function & bilateral lower extremity cellulitis. History/Risk Factors: CKD IV, CHF with hypertension, chronic anemia, DM, atrial fibrillation and sleep apnea. Clinical Indicators: VS: R 32 (sob, tachypnea), PO 99 3Lnc. BNP: 593 Chest X Ray: no acute cardiopulmonary process. Previous ECHO 01/20/2017: Left ventricular systolic function wnl EF between 60-65% . Treatment: Heart healthy diet, Albuterol INH, IV Vanco, po Lasix 60 mg BID ( home dose). In your professional opinion, can you please clarify the acuity and type of CHF if known? Systolic Heart Failure: o Acute o Chronic o Acute on Chronic Diastolic Heart Failure: o Acute o Chronic o Acute on Chronic Systolic & Diastolic Heart Failure: o Acute o Chronic o Acute on Chronic Heart Failure Unable to Determine Other, please specify Please continue to document in your progress notes and discharge summary in order to capture severity of illness and risk of mortality. Include clinical findings that support your diagnosis. Chronic Diastolic Heart Failure MTDD
--- NOTE | 2017-10-08 10:51 | CDI ---
Last Revision, May 2017 Documentation Clarification Form Date: 10/08/17 From: Ellie Terry Meenakshi Manjarrez, Special Investigator between 8:30 am & 5 pm Isaak Admit Date: 09/17/2017 5:52:00 PM Patient Name: Tamar Dominguez Visit Number: [id number] Discharge Date: 09/25/17 ATTENTION: The Clinical Documentation Specialists (CDI) and [facility] Coding Staff appreciate your assistance in clarifying documentation. Please respond to the clarification below the line at the bottom and electronically sign. The CDI & [facility] Coding staff will review the response and follow-up if needed. Please note: Queries are made part of the Legal Health Record. If you have any questions, please contact the author of this message via ITS. Dr. Chilo Gonzalez Acute Renal failure is documented in the H&P & DS. History Risk factors/Other underlying illness: Per 09/25 PN "Chronic kidney disease secondary ot nephrosclerosis and resoving ATN from January at which time serum creatinine was as high as 8.8 mg/dl." Current BUN: 97, 87, 76, 70, 71, 78, 81, 81, 85 Cirremt CR: 2.10, 1.95, 1.73, 1.75, 1.90, 2.08, 1.95, 1.75, 1.60 Current GFR: 22, 24, 28, 27, 25, 22, 24, 27, 31 Patients baseline CR: 1.4 to 1.9 In your professional opinion, can you please clarify if the condition can be further specified? Acute Renal Failure with Acute Tubular Necrosis Acute Renal Failure Unable to determine Other, please specify Please continue to document in your progress notes and discharge summary in order to capture severity of illness and risk of mortality. Include clinical findings that support your diagnosis. Acute kidney failure with evidence of acute tubular necrosis MTDD
== END 2017-09-25 16:56 | DRG 982 ==
LOC: EC 14:33 → 4MS4W 17:52
PROVIDERS: ADMIT Internal Medicine; ATTEND Internal Medicine
PROC: 0W3Q7ZZ Control Bleeding in Respiratory Tract, Via Natural or Artificial Opening (ICD-10-PCS; principal; 2017-09-19)
DX: N17.0 Acute kidney failure with tubular necrosis (principal); L03.115 Cellulitis of right lower limb; E11.22 Type 2 diabetes mellitus with diabetic chronic kidney disease; E11.622 Type 2 diabetes mellitus with other skin ulcer; I27.20 Pulmonary hypertension, unspecified; E66.01 Morbid (severe) obesity due to excess calories; I13.0 Hypertensive heart and chronic kidney disease with heart failure and stage 1 through stage 4 chronic kidney disease, or unspecified chronic kidney disease; I50.32 Chronic diastolic (congestive) heart failure; I48.2 Chronic atrial fibrillation; E87.5 Hyperkalemia; B35.3 Tinea pedis; Z68.42 Body mass index [BMI] 45.0-49.9, adult; L97.219 Non-pressure chronic ulcer of right calf with unspecified severity; L97.229 Non-pressure chronic ulcer of left calf with unspecified severity; N39.0 Urinary tract infection, site not specified; L03.116 Cellulitis of left lower limb; N18.4 Chronic kidney disease, stage 4 (severe); Z99.81 Dependence on supplemental oxygen; J44.9 Chronic obstructive pulmonary disease, unspecified; I83.012 Varicose veins of right lower extremity with ulcer of calf; N28.1 Cyst of kidney, acquired; I83.022 Varicose veins of left lower extremity with ulcer of calf; D63.1 Anemia in chronic kidney disease; M06.9 Rheumatoid arthritis, unspecified; R04.0 Epistaxis; E03.9 Hypothyroidism, unspecified; D50.9 Iron deficiency anemia, unspecified; G43.909 Migraine, unspecified, not intractable, without status migrainosus; E78.5 Hyperlipidemia, unspecified; K21.9 Gastro-esophageal reflux disease without esophagitis; M19.91 Primary osteoarthritis, unspecified site; K59.00 Constipation, unspecified; G47.33 Obstructive sleep apnea (adult) (pediatric); M10.9 Gout, unspecified; Z71.3 Dietary counseling and surveillance; Z79.01 Long term (current) use of anticoagulants; Z79.890 Hormone replacement therapy; Z79.4 Long term (current) use of insulin; Z79.899 Other long term (current) drug therapy; Z86.718 Personal history of other venous thrombosis and embolism; Z90.710 Acquired absence of both cervix and uterus; Z96.651 Presence of right artificial knee joint; Z98.42 Cataract extraction status, left eye; Z98.41 Cataract extraction status, right eye; Z87.891 Personal history of nicotine dependence; Z86.711 Personal history of pulmonary embolism; Z88.2 Allergy status to sulfonamides; Z88.7 Allergy status to serum and vaccine; Z88.8 Allergy status to other drugs, medicaments and biological substances
CPT/HCPCS: 36415; 71046; 76770; 80048; 80053; 80202; 81001; 82728; 83036; 83540; 83550; 83605; 83880; 84439; 84443; 84484; 85025; 87040; 87086; 93005; 94640; 94760; 96365; 99284

== ENCOUNTER → 2017-11-24 | Outpatient (CLI) | payer MEDICARE ==
[2017-11-24 16:51] LABS: Anisocytosis Slight; Hypochromasia Slight; MCH 32.6 pg (25.0-35.0); MCHC 32.9 g/dL (31.0-37.0); MCV 98.9 fL (80.0-100.0); Macrocytosis Slight; Platelet Count 207 k/uL (150-450); RBC 3.94 m/uL (3.80-5.40); RDW 17.7 % (11.5-15.5); WBC 11.5 k/uL (3.8-10.6)
[2017-11-24 16:53] LABS: Appearance,Urine Clear (Clear); Bilirubin,Urine Negative (Negative); Blood,Urine Negative (Negative); Color,Urine Light Yellow; Glucose,Urine (UA) Negative (Negative); Hyaline Casts,Urine 5 /lpf (0-2); Ketones,Urine Negative (Negative); Leukocyte Esterase,Urine Small (Negative); Mucus,Urine Rare /hpf; Nitrite,Urine Negative (Negative); PH, Urine 5.5 (5.0-8.0); Protein,Urine Negative (Negative); RBC,Urine <1 /hpf (0-5); Specific Gravity,Urine 1.008 (1.001-1.035); Squamous Epithelial Cell,Urine <1 /hpf (0-4); Urobilinogen,Urine <2.0 mg/dL (<2.0); WBC,Urine 3 /hpf (0-5)
[2017-11-24 16:57] LABS: HGB 12.8 gm/dL (11.4-16.0)
[2017-11-24 17:19] LABS: Calcium 9.3 mg/dL (8.4-10.2); Magnesium 1.9 mg/dL (1.6-2.3); Phosphorus 3.4 mg/dL (2.5-4.5); Potassium 4.1 mmol/L (3.5-5.1); Total Bilirubin 0.4 mg/dL (0.2-1.3); Total Protein 6.5 g/dL (6.3-8.2); Uric Acid 6.6 mg/dL (3.7-7.4)
[2017-11-24 18:25] LABS: Creatinine,Urine Random 44.8 mg/dL
[2017-11-25 01:27] LABS: Iron Saturation 17.18 (12.00-45.00)
[2017-11-25 01:42] LABS: Vitamin D 25 Hydroxy 10.7 ng/mL (30.0-100.0)
[2017-11-25 05:16] LABS: Parathyroid Hormone Intact 149.9 pg/mL (14.0-72.0)
== END | disposition home or self-care (01) ==
LOC: LABWHC1 16:11
PROVIDERS: ATTEND Nurse Practitioner Family
DX: N17.9 Acute kidney failure, unspecified (principal); D64.9 Anemia, unspecified; R80.9 Proteinuria, unspecified; E83.39 Other disorders of phosphorus metabolism; E21.3 Hyperparathyroidism, unspecified; E55.9 Vitamin D deficiency, unspecified; M10.9 Gout, unspecified
CPT/HCPCS: 36415; 80053; 81001; 82306; 82570; 82728; 83540; 83550; 83735; 83970; 84100; 84156; 84550; 85027

== ENCOUNTER 2018-03-21 19:23 | Inpatient (IN) | payer MEDICARE ==
[2018-03-21] MEDS ORDERED: ALBUTEROL NEBULIZED 2.5 MG/3 ML INHALATION STA (19:30)
[2018-03-21] MEDS ORDERED: IPRATROPIUM 0.5 MG/2.5 ML NEBU INHALATION STA (19:30)
[2018-03-21 20:14] LABS: WBC 10.4 k/uL (3.8-10.6)
[2018-03-21 20:15] LABS: Basophils # (A) 0.1 k/uL (0-0.2); Basophils % (A) 1 %; Eosinophils # (A) 0.3 k/uL (0-0.7); Eosinophils % (A) 3 %; HCT 36.5 % (34.0-46.0); HGB 12.4 gm/dL (11.4-16.0); Lymphocytes # (A) 1.7 k/uL (1.0-4.8); Lymphocytes % (A) 17 %; MCH 33.5 pg (25.0-35.0); MCV 98.5 fL (80.0-100.0); Macrocytosis Slight; Mean Platelet Volume 7.5; Monocytes # (A) 0.5 k/uL (0-1.0); Monocytes % (A) 5 %; Neutrophils # (A) 7.6 k/uL (1.3-7.7); Neutrophils % (A) 73 %; Platelet Count 273 k/uL (150-450); Poikilocytosis Slight; RDW 15.5 % (11.5-15.5)
[2018-03-21 20:23] LABS: Albumin 3.9 g/dL (3.5-5.0); Calcium 9.5 mg/dL (8.4-10.2); Potassium 3.3 mmol/L (3.5-5.1); Total Bilirubin 0.8 mg/dL (0.2-1.3)
[2018-03-21 20:24] LABS: INR 1.4 (<1.2); Partial Thromboplastin Time 27.6 sec (22.0-30.0); Prothrombin Time 13.4 sec (9.0-12.0)
--- NOTE | 2018-03-21 20:32 | ED ---
SOB HPI - General Chief Complaint: Shortness of Breath Stated Complaint: Difficulty Breathing Time Seen by Provider: 03/21/18 19:28 Source: patient, EMS, RN notes reviewed, old records reviewed Mode of arrival: EMS Limitations: physical limitation - History of Present Illness Initial Comments: This is a 77-year-old female the ER with multifactorial shortness of breath. History of COPD history of CHF no recent fevers no cough or congestion recent travel history no sick contacts. Some of low pulse ox and sent to ER for evaluation today. Patient denying any current pain,, does have increased cough and congestion MD Complaint: shortness of breath, cough, pain with inspiration -: days(s) Consistency: constant Improves With: oxygen, bronchodilators Worsens With: exertion, coughing Known History Of: COPD Associated Symptoms: denies other symptoms Treatments Prior to Arrival: none - Related Data Home Medications Medication Instructions Recorded Confirmed Albuterol Inhaler [Ventolin Hfa 2 puff INHALATION RT-Q4H PRN 04/29/16 11/03/17 Inhaler] Insulin Lispro [humaLOG Kwikpen] See Protocol SQ AC-TID@07,,07/24/16 Meclizine [Antivert] 25 mg PO TID@08,,07/24/16 11/03/17 Albuterol Nebulized [Ventolin 2.5 mg INHALATION RT-Q4H PRN 01/16/17 11/03/17 Nebulized] Allopurinol [Zyloprim] 300 mg PO DAILY 01/16/17 11/03/17 Isosorbide Mononitrate ER [Imdur] 30 mg PO DAILY 01/16/17 11/03/17 Rivaroxaban [Xarelto] 15 mg PO HS 01/16/17 11/03/17 Co Q-10 50mg 50 mg PO DAILY 09/17/17 11/03/17 Ferrous Sulfate [Iron (65 MG 325 mg PO TID@0700,1200,1700 09/17/17 11/03/17 Elemental)] Furosemide [Lasix] 60 mg PO BID 09/17/17 11/03/17 Pantoprazole [Protonix] 40 mg PO DAILY@0700 09/17/17 11/03/17 Spironolactone [Aldactone] 25 mg PO DAILY@0800 09/17/17 11/03/17 Previous Rx's Medication Instructions Recorded Amiodarone [Cordarone] 200 mg PO DAILY tab 01/22/17 Nebivolol [Bystolic] 5 mg PO DAILY tab 08/28/17 Cephalexin [Keflex] 500 mg PO Q8HR #15 cap 09/25/17 Docusate [Colace] 100 mg PO BID cap 09/25/17 Levothyroxine Sodium [Synthroid] 88 mcg PO DAILY@0630 tab 09/25/17 Polyethylene Glycol 3350 [Miralax] 17 gm PO HS powd.pack 09/25/17 traMADol HCL [Ultram] 50 mg PO Q12H PRN #6 tablet 09/25/17 Allergies Allergy/AdvReac Type Severity Reaction Status Date / Time iron Allergy Rash/Hives Verified 11/03/17 11:54 Sulfa (Sulfonamide Allergy Rash/Hives Verified 11/03/17 11:54 Antibiotics) Tetanus Vaccines and Toxoid Allergy Swelling Verified 11/03/17 11:54 Review of Systems ROS Statement: Those systems with pertinent positive or pertinent negative responses have been documented in the HPI. ROS Other: All systems not noted in ROS Statement are negative. Past Medical History Past Medical History: Atrial Fibrillation, Blood Disorder, Heart Failure, COPD, Diabetes Mellitus, Deep Vein Thrombosis (DVT), GERD/Reflux, Hyperlipidemia, Hypertension, Osteoarthritis (OA), Renal Disease, Rheumatoid Arthritis (RA), Sleep Apnea/CPAP/BIPAP, Thyroid Disorder Additional Past Medical History / Comment(s): migraines,gout "bleeding in kidney ",uti-ecoli 04-30-16 per micro", gout. KIDNEY DISEASE. ANEMIA. History of Any Multi-Drug Resistant Organisms: None Reported Past Surgical History: Heart Catheterization, Hysterectomy, Joint Replacement, Orthopedic Surgery Additional Past Surgical History / Comment(s): rt knee replacement, heel spur left foot, sanjana cataracts,cystoscopy Past Anesthesia/Blood Transfusion Reactions: No Reported Reaction Past Psychological History: No Psychological Hx Reported Smoking Status: Former smoker - Past Family History Mother Family Medical History: Unable to Obtain Father Family Medical History: Unable to Obtain General Exam Limitations: physical limitation General appearance: alert, obese Head exam: Present: atraumatic, normocephalic, normal inspection Eye exam: Present: normal appearance, PERRL, EOMI. Absent: scleral icterus, conjunctival injection, periorbital swelling ENT exam: Present: normal exam, mucous membranes moist Neck exam: Present: normal inspection. Absent: tenderness, meningismus, lymphadenopathy Respiratory exam: Present: wheezes, accessory muscle use, decreased breath sounds, prolonged expiratory. Absent: normal lung sounds bilaterally, respiratory distress, rales, rhonchi, stridor Cardiovascular Exam: Present: regular rate, normal rhythm, normal heart sounds. Absent: systolic murmur, diastolic murmur, rubs, gallop, clicks GI/Abdominal exam: Present: soft, normal bowel sounds. Absent: distended, tenderness, guarding, rebound, rigid Extremities exam: Present: normal inspection, full ROM, normal capillary refill. Absent: tenderness, pedal edema, joint swelling, calf tenderness Back exam: Present: normal inspection Neurological exam: Present: alert, oriented X3, CN II-XII intact Psychiatric exam: Present: normal affect, normal mood Skin exam: Present: warm, dry, intact, normal color. Absent: rash Course Vital Signs 03/21/18 03/21/18 03/21/18 19:26 20:41 20:45 Temperature 97.1 F L Pulse Rate 78 72 72 Respiratory 18 16 Rate Blood Pressure 132/63 140/72 O2 Sat by Pulse 98 97 Oximetry - Reevaluation(s) Reevaluation #1: 03/21/18 21:05 Medical records thoroughly reviewed Reevaluation #2: 03/21/18 21:05 Patient does have mild improvement in symptoms Medical Decision Making - Medical Decision Making 77 female the ER for evaluation, patient was essay for evaluation or shortness of breath strong history of COPD isn't wheezing. Apparently low pulse ox outpatient, patient having significant wheezing, improvement with breathing treatments here in the ER will admit for continued breathing treatments and steroids - Lab Data Result diagrams: 03/21/18 20:02 03/21/18 20:02 Lab Results 03/21/18 03/21/18 03/21/18 Range/Units 20:02 20:02 20:02 WBC 10.4 (3.8-10.6) k/uL RBC 3.70 L (3.80-5.40) m/uL Hgb 12.4 (11.4-16.0) gm/dL Hct 36.5 (34.0-46.0) % MCV 98.5 (80.0-100.0) fL MCH 33.5 (25.0-35.0) pg MCHC 34.0 (31.0-37.0) g/dL RDW 15.5 (11.5-15.5) % Plt Count 273 (150-450) k/uL Neutrophils % 73 % Lymphocytes % 17 % Monocytes % 5 % Eosinophils % 3 % Basophils % 1 % Neutrophils # 7.6 (1.3-7.7) k/uL Lymphocytes # 1.7 (1.0-4.8) k/uL Monocytes # 0.5 (0-1.0) k/uL Eosinophils # 0.3 (0-0.7) k/uL Basophils # 0.1 (0-0.2) k/uL Poikilocytosis Slight Macrocytosis Slight PT (9.0-12.0) sec INR (<1.2) APTT (22.0-30.0) sec Sodium 140 (137-145) mmol/L Potassium 3.3 L (3.5-5.1) mmol/L Chloride 95 L (98-107) mmol/L Carbon Dioxide 36 H (22-30) mmol/L Anion Gap 9 mmol/L BUN 71 H (7-17) mg/dL Creatinine 1.69 H (0.52-1.04) mg/dL Est GFR (CKD-EPI)AfAm 33 (>60 ml/min/1.73 sqM) Est GFR (CKD-EPI)NonAf 29 (>60 ml/min/1.73 sqM) Glucose 149 H (74-99) mg/dL Calcium 9.5 (8.4-10.2) mg/dL Magnesium 2.0 (1.6-2.3) mg/dL Total Bilirubin 0.8 (0.2-1.3) mg/dL AST 33 (14-36) U/L ALT 42 (9-52) U/L Alkaline Phosphatase 117 (38-126) U/L Total Creatine Kinase 39 (30-135) U/L CK-MB (CK-2) 0.6 (0.0-2.4) ng/mL CK-MB (CK-2) Rel Index 1.5 Troponin I <0.012 (0.000-0.034) ng/mL NT-Pro-B Natriuret Pep pg/mL Total Protein 7.0 (6.3-8.2) g/dL Albumin 3.9 (3.5-5.0) g/dL 03/21/18 03/21/18 Range/Units 20:02 20:02 WBC (3.8-10.6) k/uL RBC (3.80-5.40) m/uL Hgb (11.4-16.0) gm/dL Hct (34.0-46.0) % MCV (80.0-100.0) fL MCH (25.0-35.0) pg MCHC (31.0-37.0) g/dL RDW (11.5-15.5) % Plt Count (150-450) k/uL Neutrophils % % Lymphocytes % % Monocytes % % Eosinophils % % Basophils % % Neutrophils # (1.3-7.7) k/uL Lymphocytes # (1.0-4.8) k/uL Monocytes # (0-1.0) k/uL Eosinophils # (0-0.7) k/uL Basophils # (0-0.2) k/uL Poikilocytosis Macrocytosis PT 13.4 H (9.0-12.0) sec INR 1.4 H (<1.2) APTT 27.6 (22.0-30.0) sec Sodium (137-145) mmol/L Potassium (3.5-5.1) mmol/L Chloride (98-107) mmol/L Carbon Dioxide (22-30) mmol/L Anion Gap mmol/L BUN (7-17) mg/dL Creatinine (0.52-1.04) mg/dL Est GFR (CKD-EPI)AfAm (>60 ml/min/1.73 sqM) Est GFR (CKD-EPI)NonAf (>60 ml/min/1.73 sqM) Glucose (74-99) mg/dL Calcium (8.4-10.2) mg/dL Magnesium (1.6-2.3) mg/dL Total Bilirubin (0.2-1.3) mg/dL AST (14-36) U/L ALT (9-52) U/L Alkaline Phosphatase (38-126) U/L Total Creatine Kinase (30-135) U/L CK-MB (CK-2) (0.0-2.4) ng/mL CK-MB (CK-2) Rel Index Troponin I (0.000-0.034) ng/mL NT-Pro-B Natriuret Pep 274 pg/mL Total Protein (6.3-8.2) g/dL Albumin (3.5-5.0) g/dL - EKG Data -: EKG Interpreted by Me (EKG shows sinus rhythm rate of 72, MN 292, QRS 82, QTc 520) EKG shows normal: sinus rhythm Rate: normal - Radiology Data Radiology results: report reviewed (Chest x-rays negative for acute disease), image reviewed Disposition Clinical Impression: COPD exacerbation, Acute exacerbation of chronic obstructive airways disease Disposition: ADMITTED IP TO THIS HOSP Condition: Fair Is patient prescribed a controlled substance at d/c from ED?: No Referrals: Linnea Alonso DO [Primary Care Provider] - 1-2 days
[2018-03-21 20:36] LABS: Creatine Kinase 39 U/L (30-135)
--- NOTE | 2018-03-21 20:36 | XR ---
EXAMINATION TYPE: XR chest 2V DATE OF EXAM: 03/21/2018 COMPARISON: 09/19/2017 HISTORY: Short of breath TECHNIQUE: Frontal and lateral views of the chest are obtained. FINDINGS: There is some coarsening of interstitial markings in the lower lobes. There are chest lead s. There is minor spurring in the thoracic spine. There are probably some calcified granulomata in th e lower lobes. There is no heart failure. IMPRESSION: Mild pulmonary fibrosis. There is clearing of the linear infiltrate and atelectasis in t he right midlung compared to last exam. No pulmonary consolidation.
[2018-03-21 20:49] LABS: Creatine Kinase MB 0.6 ng/mL (0.0-2.4); Troponin I <0.012 ng/mL (0.000-0.034)
[2018-03-21] MEDS ORDERED: methylPREDNISolone SOD SUCCI 125 MG/2 ML VIAL IV STA (21:01)
[2018-03-21] MEDS ORDERED: IPRATROPIUM-ALBUTEROL 3 ML NEB INHALATION PRN (22:23)
[2018-03-21] MEDS: SODIUM CHLORIDE 0.9% 1,000 ML IV SCH (23:24)
[2018-03-22] MEDS: methylPREDNISolone SOD SUCCI 125 MG/2 ML VIAL IV SCH ×4 (00:56→19:19)
[2018-03-22 07:27] LABS: Glucose,Whole Blood 338 mg/dL (75-99)
[2018-03-22] MEDS: IPRATROPIUM-ALBUTEROL 3 ML NEB INHALATION SCH ×4 (08:55→20:35)
[2018-03-22] MEDS ORDERED: POTASSIUM CHLORIDE ER 20 MEQ TAB.ER PO STA (08:58)
[2018-03-22] MEDS: INSULIN ASPART 100 UNIT/ML 1 ML 10 ML VIAL SQ SCH ×3 (09:05→19:15)
[2018-03-22] MEDS ORDERED: MECLIZINE 25 MG TAB PO PRN (10:30)
--- NOTE | 2018-03-22 10:49 | P.HPIM ---
History of Present Illness H&P Date: 03/22/18 Chief Complaint: increased shortness breath this is a 77-year-old female patient of Dr. Alonso. Patient presented to the emergency room with complaints of increased shortness of breath that started a few days ago. Patient does state she is oxygen dependent at home. Wearing mostly 2 L but has required 3 L over the past 2 days. patient has a past medical history of atrial fibrillation, heart failure, COPD, diabetes mellitus, DVT thrombosis, GERD, hyperlipidemia, hypertension, osteoarthritis, renal disease, rheumatoid arthritis, sleep apnea and thyroid disorder. Patient's cannot recall seeing a binder lockstitch outpatient. Patient has seen Dr. Peters in the past during inpatient. Dr. Behzad kaur pulmonary has been consulted. chest x-ray completed showing mild pulmonary fibrosis. There is complaining of the linear infiltrate and atelectasis in the right midlung compared to last exam. No pulmonary consolidation. EKG completed showing sinus rhythm with first-degree AV block. Left anterior vascular block. patient also has bilateral cellulitis on lower extremities. Patient states she has visiting nursing changing dressing weekly. Patient has seen Dr. Fracisco kaur infectious disease in the past. Patient also has open sore on backside. Dr. Fracisco kaur infectious disease has been consulted. Patient has been started on Solu-Medrol 60 mg every 6 hours. at this time patient denies chest pain. Patient is still complaining of shortness of breath. Patient denies nausea vomiting or diarrhea. she does states she's been having some burning with urination. Urinalysis has been ordered. Review of Systems please refer to HPI otherwise unremarkable Past Medical History Past Medical History: Atrial Fibrillation, Blood Disorder, Heart Failure, COPD, Diabetes Mellitus, Deep Vein Thrombosis (DVT), GERD/Reflux, Hyperlipidemia, Hypertension, Osteoarthritis (OA), Renal Disease, Rheumatoid Arthritis (RA), Sleep Apnea/CPAP/BIPAP, Thyroid Disorder Additional Past Medical History / Comment(s): migraines,gout "bleeding in kidney ",uti-ecoli 04-30-16 per micro", gout. KIDNEY DISEASE,. ANEMIA. History of Any Multi-Drug Resistant Organisms: None Reported Past Surgical History: Heart Catheterization, Hysterectomy, Joint Replacement, Orthopedic Surgery Additional Past Surgical History / Comment(s): rt knee replacement, heel spur left foot, sanjana cataracts,cystoscopy Past Anesthesia/Blood Transfusion Reactions: No Reported Reaction Past Psychological History: No Psychological Hx Reported Additional Psychological History / Comment(s): pt currently living with her son xi, uses a rolling walker when up,aslo has a cpap machine,shower chair Smoking Status: Never smoker Past Alcohol Use History: None Reported Additional Past Alcohol Use History / Comment(s): quit smoking 4 yrs ago, started smoking age 13, 1/2 PPD Past Drug Use History: None Reported - Past Family History Mother Family Medical History: Renal Disease Father Family Medical History: Coronary Artery Disease (CAD) Medications and Allergies Home Medications Medication Instructions Recorded Confirmed Type Albuterol Inhaler [Ventolin Hfa 2 puff INHALATION RT-Q4H PRN 04/29/16 03/22/18 History Inhaler] Insulin Lispro [humaLOG Kwikpen] See Protocol SQ AC-TID 07/24/16 03/22/18 History Meclizine [Antivert] 25 mg PO TID PRN 07/24/16 03/22/18 History Albuterol Nebulized [Ventolin 2.5 mg INHALATION RT-Q4H PRN 01/16/17 03/22/18 History Nebulized] Isosorbide Mononitrate ER [Imdur] 30 mg PO DAILY 01/16/17 03/22/18 History Ferrous Sulfate [Iron (65 MG 325 mg PO BID 09/17/17 03/22/18 History Elemental)] Levothyroxine Sodium [Synthroid] 88 mcg PO DAILY@0630 tab 09/25/17 03/22/18 Rx traMADol HCL [Ultram] 50 mg PO Q12H PRN #6 tablet 09/25/17 03/22/18 Rx Ergocalciferol [Vitamin D2] 50,000 unit PO Q7D 03/22/18 03/22/18 History Furosemide [Lasix] 80 mg PO DAILY 03/22/18 03/22/18 History Gabapentin [Neurontin] 100 mg PO BID 03/22/18 03/22/18 History Insulin Glargine [Lantus] 10 unit SQ HS 03/22/18 03/22/18 History Potassium Chloride ER [K-Dur 20] 20 meq PO DAILY 03/22/18 03/22/18 History Ubidecarenone [Co Q-10] 200 mg PO DAILY 03/22/18 03/22/18 History Warfarin Sodium [Coumadin] 2 mg PO HS 03/22/18 03/22/18 History Allergies Allergy/AdvReac Type Severity Reaction Status Date / Time iron Allergy Rash/Hives Verified 03/22/18 10:19 Sulfa (Sulfonamide Allergy Rash/Hives Verified 03/22/18 10:19 Antibiotics) Tetanus Vaccines and Toxoid Allergy Swelling Verified 03/22/18 10:19 Physical Exam Vitals: Vital Signs Temp Pulse Pulse Resp BP BP Pulse Ox 03/22/18 09:08 88 03/22/18 08:58 88 03/22/18 07:00 98.4 F 93 18 124/70 90 L 03/21/18 23:05 98.2 F 84 18 111/75 03/21/18 21:56 97.5 F L 88 20 125/56 97 03/21/18 21:08 80 03/21/18 21:00 98.5 F 85 16 140/72 98 03/21/18 20:45 72 03/21/18 20:41 72 16 140/72 97 03/21/18 19:26 97.1 F L 78 18 132/63 98 Intake and Output 03/21/18 03/22/18 03/22/18 22:59 06:59 14:59 Output Total 200 Balance -200 Output: Urine 200 Other: Weight 135.171 kg Head normocephalic Neck supple Lungs diminished throughout Heart regular rate and rhythm S1-S2, no rub or gallop Abdomen is soft nontender nondistended positive bowel sounds no hepatosplenomegaly Extremities no edema. bilateral lower extremity swelling and erythematous. Neuro alert and orientated to 3 Results CBC & Chem 7: 03/21/18 20:02 03/21/18 20:02 Labs: Abnormal Lab Results - Last 24 Hours (Table) 03/21/18 03/21/18 03/21/18 Range/Units 20:02 20:02 20:02 RBC 3.70 L (3.80-5.40) m/uL PT 13.4 H (9.0-12.0) sec INR 1.4 H (<1.2) Potassium 3.3 L (3.5-5.1) mmol/L Chloride 95 L (98-107) mmol/L Carbon Dioxide 36 H (22-30) mmol/L BUN 71 H (7-17) mg/dL Creatinine 1.69 H (0.52-1.04) mg/dL Glucose 149 H (74-99) mg/dL POC Glucose (mg/dL) (75-99) mg/dL 03/22/18 Range/Units 07:26 RBC (3.80-5.40) m/uL PT (9.0-12.0) sec INR (<1.2) Potassium (3.5-5.1) mmol/L Chloride (98-107) mmol/L Carbon Dioxide (22-30) mmol/L BUN (7-17) mg/dL Creatinine (0.52-1.04) mg/dL Glucose (74-99) mg/dL POC Glucose (mg/dL) 338 H (75-99) mg/dL Thrombosis Risk Factor Assmnt - Choose All That Apply Any of the Below Risk Factors Present?: Yes Each Factor Represents 1 point: Abnormal pulmonary function (COPD), Obesity ( BMI >25), Swollen legs (current) Each Risk Factor Represents 3 Points: Age 75 years or older Thrombosis Risk Factor Assessment Total Risk Factor Score: 6 Thrombosis Risk Factor Assessment Level: High Risk Assessment and Plan Assessment: 1. Dyspnea related to exacerbation of COPD. Chest x-ray completed showing mild pulmonary fibrosis. There is clearing of the linear infiltrate and atelectasis in the right midlung compared to last exam. No pulmonary consolidation. Patient started on Solu-Medrol 60 mg every [address] Peters consulted for pulmonary. 2. Bilateral lower showing any cellulitis. Patient currently has Silvadene dressing and Myles wraps. Patient states she has home visiting nursing changing dressing weekly. Dr. Yap per infectious disease has been consulted 3. History of atrial fibrillation. Shing currently on Coumadin. Coumadin reordered. PT/INR has been ordered 4. History of CHF. patient does wear home O2 5. History of deep vein thrombosis and pulmonary embolism. Patient is on Coumadin. 6. History of diabetes mellitus. Home medications resumed. steroid insulin sliding scale initiated 7. History of GERD 8. History of hypertension 9. History of hyperlipidemia 10. History of chronic kidney disease stage IV.creatinine 1.69 and bun 71. this does appear to be baseline for patient 11. History of sleep apnea 12. History of hypothyroidism. continue Synthroid 13. Open wound to coccyx. Apply dressing. Dr. Yap per infectious disease consulted DVT prophylaxis Coumadin. GI prophylaxis Protonix a.m. labs including CBC, CMP and PT/INR ordered Urinalysis ordered Awaiting consult from Pulmonary and infectious disease Time with Patient: Greater than 30 (Greater than 60% of the total time spent in counseling and coordination of care. I performed an examination of the patient and discussed their management with the Nurse Practitioner. I have reviewed the Nurse Practitioner's notes and agree with the documented findings and plan of care)
[2018-03-22 12:04] LABS: Glucose,Whole Blood 437 mg/dL (75-99)
[2018-03-22 12:28] LABS: INR 1.4 (<1.2); Prothrombin Time 13.5 sec (9.0-12.0)
[2018-03-22] MEDS: ERGOCALCIFEROL 50,000 UNIT CAP PO SCH (12:38)
[2018-03-22] MEDS ORDERED: INSULIN ASPART 100 UNIT/ML 1 ML 10 ML VIAL SQ ONE (12:43)
[2018-03-22] MEDS ORDERED: INSULIN DETEMIR 100 UNIT/ML 10 ML VIAL SQ ONE (12:46)
[2018-03-22 13:04] LABS: Hemoglobin A1C 5.7 % (4.0-6.0)
[2018-03-22] MEDS: traMADol 50 MG TAB PO PRN (15:45)
--- NOTE | 2018-03-22 16:21 | P.CNPUL ---
History of Present Illness Consult date: 03/22/18 Requesting physician: Michel Oliver Reason for consult: dyspnea Chief complaint: Shortness of breath History of present illness: This is a 77-year-old female with history of chronic hypoxic respiratory failure , known to have history of COPD, remote smoking history, patient is maintained on oxygen at 3 L nasal cannula. Known history of chronic atrial fibrillation, congestive heart failure, COPD, diabetes, deep vein thrombosis, hypertension, osteoarthritis, obstructive sleep apnea syndrome, and hypothyroidism. Normally sees Dr. Alonso as her primary care physician, patient was never seen by a visitor services specialist for her pulmonary status, however a year ago she presented with urinary tract infection and sepsis and back then she was seen by Dr. Patrick on consultation. Patient presented to the ER today with a few days' history of increased shortness of breath, cough, increased fluid retention, increased leg swelling, increased abdominal girth, and just not feeling well. Patient denies any fever, no chills, she describes the cough as productive with whitish phlegm, denies any hemoptysis, no chest pain. Patient had a chest x- ray done on this admission, the radiologist questioned mild pulmonary fibrosis, however I felt that the patient has increased interstitial markings, prominent pulmonary vasculature, some linear atelectasis in the right midlung, no clear- cut evidence of pneumonia or infiltrate. Patient was given diuretics, steroids , bronchodilators, and she is still on oxygen at 3 L nasal cannula. Minimal improvement since her admission. Review of Systems 14 point review of systems were obtained, please refer to pertinent positives in HPI, otherwise remaining systems are negative. Past Medical History Past Medical History: Atrial Fibrillation, Blood Disorder, Heart Failure, COPD, Diabetes Mellitus, Deep Vein Thrombosis (DVT), GERD/Reflux, Hyperlipidemia, Hypertension, Osteoarthritis (OA), Renal Disease, Rheumatoid Arthritis (RA), Sleep Apnea/CPAP/BIPAP, Thyroid Disorder Additional Past Medical History / Comment(s): migraines,gout "bleeding in kidney ",uti-ecoli 16 per micro", gout. KIDNEY DISEASE,. ANEMIA. History of Any Multi-Drug Resistant Organisms: None Reported Past Surgical History: Heart Catheterization, Hysterectomy, Joint Replacement, Orthopedic Surgery Additional Past Surgical History / Comment(s): rt knee replacement, heel spur left foot, sanjana cataracts,cystoscopy Past Anesthesia/Blood Transfusion Reactions: No Reported Reaction Past Psychological History: No Psychological Hx Reported Additional Psychological History / Comment(s): pt currently living with her son xi, uses a rolling walker when up,aslo has a cpap machine,shower chair Smoking Status: Never smoker Past Alcohol Use History: None Reported Additional Past Alcohol Use History / Comment(s): quit smoking 4 yrs ago, started smoking age 13, 1/2 PPD Past Drug Use History: None Reported - Past Family History Mother Family Medical History: Renal Disease Father Family Medical History: Coronary Artery Disease (CAD) Medications and Allergies Home Medications Medication Instructions Recorded Confirmed Type Albuterol Inhaler [Ventolin Hfa 2 puff INHALATION RT-Q4H PRN 04/29/16 03/22/18 History Inhaler] Insulin Lispro [humaLOG Kwikpen] See Protocol SQ AC-TID 07/24/16 03/22/18 History Meclizine [Antivert] 25 mg PO TID PRN 07/24/16 03/22/18 History Albuterol Nebulized [Ventolin 2.5 mg INHALATION RT-Q4H PRN 01/16/17 03/22/18 History Nebulized] Isosorbide Mononitrate ER [Imdur] 30 mg PO DAILY 01/16/17 03/22/18 History Ferrous Sulfate [Iron (65 MG 325 mg PO BID 09/17/17 03/22/18 History Elemental)] Levothyroxine Sodium [Synthroid] 88 mcg PO DAILY@0630 tab 09/25/17 03/22/18 Rx traMADol HCL [Ultram] 50 mg PO Q12H PRN #6 tablet 09/25/17 03/22/18 Rx Ergocalciferol [Vitamin D2] 50,000 unit PO Q7D 03/22/18 03/22/18 History Furosemide [Lasix] 80 mg PO DAILY 03/22/18 03/22/18 History Gabapentin [Neurontin] 100 mg PO BID 03/22/18 03/22/18 History Insulin Glargine [Lantus] 10 unit SQ HS 03/22/18 03/22/18 History Potassium Chloride ER [K-Dur 20] 20 meq PO DAILY 03/22/18 03/22/18 History Ubidecarenone [Co Q-10] 200 mg PO DAILY 03/22/18 03/22/18 History Warfarin Sodium [Coumadin] 2 mg PO HS 03/22/18 03/22/18 History Allergies Allergy/AdvReac Type Severity Reaction Status Date / Time iron Allergy Rash/Hives Verified 03/22/18 10:19 Sulfa (Sulfonamide Allergy Rash/Hives Verified 03/22/18 10:19 Antibiotics) Tetanus Vaccines and Toxoid Allergy Swelling Verified 03/22/18 10:19 Physical Exam Vitals: Vital Signs Temp Pulse Pulse Resp BP BP Pulse Ox 03/22/18 15:00 98.6 F 78 18 128/75 91 L 03/22/18 12:51 80 03/22/18 09:08 88 03/22/18 08:58 88 03/22/18 07:10 18 03/22/18 07:00 98.4 F 93 18 124/70 90 L 03/21/18 23:05 98.2 F 84 18 111/75 03/21/18 21:56 97.5 F L 88 20 125/56 97 03/21/18 21:08 80 03/21/18 21:00 98.5 F 85 16 140/72 98 03/21/18 20:45 72 03/21/18 20:41 72 16 140/72 97 03/21/18 19:26 97.1 F L 78 18 132/63 98 Intake and Output 03/22/18 03/22/18 03/22/18 06:59 14:59 22:59 Output Total 200 Balance -200 Output: Urine 200 Physical Exam: Revealed a 77-year-old female, morbidly obese, in no form of respiratory distress. On 3 L nasal cannula. Head: Atraumatic, normocephalic. Lymphatics: No lymphadenopathy. HEENT:[Neck is supple.] [No neck masses.] [No thyromegaly.] [No JVD.]. PERRLA, EOMI, no icterus. Chest: [Minimal fine crackles at the bases, rhonchi and wheezes noted on forced expiratory maneuver. No chest wall tenderness. Diminished breath sounds at the bases..] Cardiac Exam: [Irregular rhythm, no S3 gallop, distant S1 and S2, no murmur. Abdomen: [Soft, nontender, no megaly, no rebound, no guarding, normal bowel sounds.] Extremities: [3+ bipedal edema, chronic venous stasis changes, both lower extremities are wrapped with Myles wraps, had chronic areas of superficial ulceration and chronic venous stasis changes.] Neurological Exam: [Alert oriented 3, no gross focal neurologic deficit. Psychiatric: Normal mood, affect, and mental status examination. Musculoskeletal no deformities, normal range of motion. Results - Laboratory Findings CBC and BMP: 03/21/18 20:02 03/21/18 20:02 PT/INR, D-dimer PT 13.5 sec (9.0-12.0) H 03/22/18 11:37 INR 1.4 (<1.2) H 03/22/18 11:37 Abnormal lab findings: Abnormal Labs 03/21/18 03/21/18 03/21/18 20:02 20:02 20:02 RBC 3.70 L PT 13.4 H INR 1.4 H Potassium 3.3 L Chloride 95 L Carbon Dioxide 36 H BUN 71 H Creatinine 1.69 H Glucose 149 H POC Glucose (mg/dL) 03/22/18 03/22/18 03/22/18 07:26 11:37 12:02 RBC PT 13.5 H INR 1.4 H Potassium Chloride Carbon Dioxide BUN Creatinine Glucose POC Glucose (mg/dL) 338 H 437 H - Diagnostic Findings Chest x-ray: image reviewed (As noted in HPI) Assessment and Plan Assessment: Impression: 1 acute on chronic hypoxic respiratory failure, multifactorial secondary to acute exacerbation of COPD, suspect some component of pulmonary edema, midlung atelectasis, and possible mild pulmonary fibrosis, not previously seen on x- rays in the last one year. 2 acute on chronic bilateral lower extremity cellulitis, infectious disease will be addressing. 3 chronic atrial fibrillation, presently on Coumadin. 4 chronic congestive heart failure, suspect some component of systolic dysfunction or could be related to her underlying atrial fibrillation. 5 multiple comorbidities including morbid obesity, obesity/hypoventilation syndrome, chronic kidney disease stage IV, benign essential hypertension, hyperlipidemia, type 2 diabetes and history of deep vein thromboses and pulmonary embolism patient is still on Coumadin which is appropriate for now and no need for further workup for thromboembolic disease at this point. Recommendation: Continue present treatment plan including diuretics, bronchodilators, steroids, patient will likely need antibiotics for her cellulitis, repeat chest x-ray in the next 24-48 hours. Expect the patient to do well with bronchodilators and diuretics. May or may not consider a high- resolution CT of the chest. Time with Patient: Greater than 30
[2018-03-22 17:02] LABS: Appearance,Urine Clear (Clear); Bilirubin,Urine Negative (Negative); Blood,Urine Negative (Negative); Color,Urine Light Yellow; Glucose,Urine (UA) 4+ (Negative); Ketones,Urine Negative (Negative); Leukocyte Esterase,Urine Negative (Negative); Nitrite,Urine Negative (Negative); Protein,Urine Negative (Negative); Specific Gravity,Urine 1.009 (1.001-1.035); Urobilinogen,Urine <2.0 mg/dL (<2.0)
[2018-03-22 17:05] LABS: Glucose,Whole Blood 475 mg/dL (75-99)
[2018-03-22 17:05] LABS: Glucose,Whole Blood 513 mg/dL (75-99)
[2018-03-22] MEDS: FUROSEMIDE 10 MG/ML 4 ML VIAL IV SCH (17:30)
[2018-03-22] MEDS ORDERED: INSULIN REGULAR BOLUS (FROM DRIP BAG) IV ONE (18:19)
[2018-03-22] MEDS: ceFAZolin IN SWFI 2 GM/20 ML SYRINGE IVP SCH (19:19)
[2018-03-22 20:20] LABS: Glucose,Whole Blood 553 mg/dL (75-99)
[2018-03-22] MEDS ORDERED: INSULIN DETEMIR 100 UNIT/ML 10 ML VIAL SQ SCH (21:00)
[2018-03-22] MEDS ORDERED: WARFARIN 2 MG TAB PO SCH (21:00)
[2018-03-22] MEDS: INSULIN REGULAR 100 UNIT in SODIUM CHLORIDE 0.9% 100 ML IV SCH (21:00)
[2018-03-22 21:30] LABS: Glucose,Whole Blood 544 mg/dL (75-99)
[2018-03-22] MEDS: FERROUS SULFATE 325 MG TAB PO SCH (21:30)
[2018-03-22] MEDS: GABAPENTIN 100 MG CAP PO SCH (21:30)
[2018-03-22 22:08] LABS: Glucose,Whole Blood 551 mg/dL (75-99)
[2018-03-22 22:37] LABS: Glucose,Whole Blood 565 mg/dL (75-99)
[2018-03-22 23:06] LABS: Glucose,Whole Blood 558 mg/dL (75-99)
[2018-03-22 23:34] LABS: Glucose,Whole Blood 484 mg/dL (75-99)
[2018-03-23] MEDS: ceFAZolin IN SWFI 2 GM/20 ML SYRINGE IVP SCH ×3 (00:04→16:21)
[2018-03-23 00:05] LABS: Glucose,Whole Blood 470 mg/dL (75-99)
[2018-03-23] MEDS: FUROSEMIDE 10 MG/ML 4 ML VIAL IV SCH ×3 (00:05→16:21)
[2018-03-23] MEDS: methylPREDNISolone SOD SUCCI 125 MG/2 ML VIAL IV SCH ×4 (00:05→18:09)
[2018-03-23 00:33] LABS: Glucose,Whole Blood 421 mg/dL (75-99)
[2018-03-23 01:01] LABS: Glucose,Whole Blood 445 mg/dL (75-99)
[2018-03-23 01:37] LABS: Glucose,Whole Blood 399 mg/dL (75-99)
[2018-03-23 02:02] LABS: Glucose,Whole Blood 355 mg/dL (75-99)
[2018-03-23] MEDS: INSULIN REGULAR 100 UNIT in SODIUM CHLORIDE 0.9% 100 ML IV SCH ×4 (02:02→23:39)
[2018-03-23 02:33] LABS: Glucose,Whole Blood 325 mg/dL (75-99)
[2018-03-23 03:04] LABS: Glucose,Whole Blood 300 mg/dL (75-99)
[2018-03-23 03:35] LABS: Glucose,Whole Blood 293 mg/dL (75-99)
[2018-03-23 04:04] LABS: Glucose,Whole Blood 241 mg/dL (75-99)
[2018-03-23 05:05] LABS: Glucose,Whole Blood 227 mg/dL (75-99)
--- NOTE | 2018-03-23 05:38 | CONS ---
CONSULTATION DATE OF SERVICE: 03/22/2018. REASON FOR CONSULTATION: Bilateral lower extremity cellulitis. HISTORY OF PRESENT ILLNESS: The patient is a 77 -year-old female with past medical history significant for COPD and congestive heart failure, presenting to the ER with increasing shortness of breath. The symptoms has been going on for a few days before she presented to hospital. The patient has become more shortness of breath on exertion. Not any at rest. She did have chronic swelling in her lower extremity currently being treated with compression dressing. The patient did have very minimal cough, not bringing up any sputum. Denies having any URI symptoms. No nausea, vomiting or difficulty swallowing or any nausea or vomiting. With these symptoms, the patient has been evaluated by the ER physician. On arrival to the ER, the patient has been afebrile. Her white count was 10.4. UA has been negative. The patient did have a chest x-ray which shows mild pulmonary fibrosis clearing of the infiltrate with atelectasis in the right mid lung compared to last exam. The patient admitted to the hospital with underlying . The patient also noticed to have more swelling and redness in her legs with concern for cellulitis. Infectious Disease was consulted for further recommendation regarding antibiotic therapy. REVIEW OF SYSTEMS: CONSTITUTIONAL: Positive for weakness. Denies high-grade fever. Eyes: No complaint. ENT no complaint. Respiratory as per HPI. Cardiovascular as per HPI. Genitourinary: No complaint. Gastrointestinal: No complaint. Musculoskeletal no complaint. Integumentary as per HPI. Psychological: No complaint. Endocrine: No complaint. Neurologic no complaint. PAST MEDICAL HISTORY: Congestive heart failure, DVT, pulmonary embolism, hypertension, hyperlipidemia, COPD, diabetes mellitus, recurrent lower extremity cellulitis and sleep apnea. PAST SURGICAL HISTORY: Right knee replacement, heart catheterization, bilateral cardiac surgery, cystoscopy, colonoscopy, hysterectomy. SOCIAL HISTORY: Remote history of smoking. No drinking or drug use. FAMILY HISTORY: No pertinent findings noticed. ALLERGIES: SULFA and IRON, TETANUS VACCINE. MEDICATION: Include the patient currently on: DuoNeb, vitamin D2, iron sulfate, Lasix, and Neurontin. NovoLog, sliding-scale insulin, Imdur, Synthroid, Antivert, Solu-Medrol, Protonix, K-Dur, Ultram, and Coumadin. EXAMINATION: Blood pressure is 128/75 with a pulse of 78, temperature 98.6. He is 91% on 2 L nasal cannula. General description is an elderly female lying in bed in no distress. No tachypnea or accessory muscle of respiration use. HEENT: Shows no pallor or scleral icterus. Oral mucosa membranes are dry. No pharyngeal erythema or thrush. NECK: Trachea central. No thyromegaly. LUNGS: Unlabored breathing with decreased breath sounds in the bases, no wheeze or crackles. Heart: S1-S2 regular. ABDOMEN: Soft. No tenderness. Extremities are 2+ edema of the feet with diffuse swelling and redness. Did have erythema and warmth to touch. No skin breakdown. No drainage. Neurological: Patient is awake, alert, oriented x3. Mood and affect normal. LABS: Hemoglobin is 12.4, white count 10.4 with a BUN of 31, creatinine 1.67, potassium 3.3. Liver enzymes are normal. Urine has been negative. Chest x-ray report as mentioned above. DIAGNOSTIC IMPRESSION AND PLAN: Patient with bilateral lower extremity cellulitis in a patient who did have evidence of a fluid overload with diffuse swelling, redness, slightly pointing towards a streptococcal cellulitis. Clinically doubt a MRSA infection or a gram-negative. PLAN: 1. We will start the patient on cefazolin 2 g q.8 hours. 2. Myles wrap to both the legs from just above to below the knee to keep the swelling down and keep the leg elevated. 3. We will follow up on the clinical condition as well as cultures to further adjust medication if needed. Thank you for this consultation. I will follow this patient along with you. MMODL / IJN: [id number] /
[2018-03-23 06:10] LABS: Glucose,Whole Blood 203 mg/dL (75-99)
[2018-03-23 07:03] LABS: Glucose,Whole Blood 205 mg/dL (75-99)
[2018-03-23] MEDS: SODIUM CHLORIDE 0.9% 1,000 ML IV SCH (07:16)
[2018-03-23] MEDS ORDERED: INSULIN ASPART 100 UNIT/ML 1 ML 10 ML VIAL SQ SCH ×2 (07:30→12:30)
[2018-03-23 08:04] LABS: Glucose,Whole Blood 214 mg/dL (75-99)
[2018-03-23 08:34] LABS: Basophils % (A) 0 %; Eosinophils # (A) 0.1 k/uL (0-0.7); Eosinophils % (A) 0 %; HGB 12.7 gm/dL (11.4-16.0); Lymphocytes % (A) 4 %; MCHC 32.6 g/dL (31.0-37.0); MCV 98.2 fL (80.0-100.0); Mean Platelet Volume 7.7; Monocytes # (A) 0.7 k/uL (0-1.0); Monocytes % (A) 3 %; Neutrophils # (A) 22.8 k/uL (1.3-7.7); Neutrophils % (A) 93 %; Platelet Count 318 k/uL (150-450); RBC 3.97 m/uL (3.80-5.40); RDW 15.2 % (11.5-15.5); WBC 24.6 k/uL (3.8-10.6)
[2018-03-23] MEDS: IPRATROPIUM-ALBUTEROL 3 ML NEB INHALATION SCH ×4 (08:38→20:39)
[2018-03-23 08:42] LABS: INR 1.4 (<1.2); Prothrombin Time 13.5 sec (9.0-12.0)
[2018-03-23 08:50] LABS: Albumin 4.1 g/dL (3.5-5.0); Calcium 10.1 mg/dL (8.4-10.2); Potassium 3.3 mmol/L (3.5-5.1); Total Bilirubin 0.4 mg/dL (0.2-1.3); Total Protein 7.1 g/dL (6.3-8.2)
[2018-03-23] MEDS ORDERED: NON-FORMULARY DRUG (Ubidecarenone [Co Q-10] 200 MG) PO SCH (09:00)
[2018-03-23] MEDS ORDERED: FUROSEMIDE 80 MG TAB PO SCH (09:00)
[2018-03-23 09:08] LABS: Glucose,Whole Blood 262 mg/dL (75-99)
[2018-03-23] MEDS: INSULIN ASPART 100 UNIT/ML 1 ML 10 ML VIAL SQ SCH ×3 (09:30→18:09)
[2018-03-23] MEDS: FERROUS SULFATE 325 MG TAB PO SCH ×2 (09:35→22:05)
[2018-03-23] MEDS: GABAPENTIN 100 MG CAP PO SCH ×2 (09:35→22:05)
[2018-03-23] MEDS: POTASSIUM CHLORIDE ER 20 MEQ TAB.ER PO SCH ×4 (09:35→22:07)
[2018-03-23] MEDS: PANTOPRAZOLE 40 MG TABLET PO SCH (09:35)
[2018-03-23] MEDS: ISOSORBIDE MONONITRATE ER 30 MG TAB.ER.24H PO SCH (09:35)
[2018-03-23] MEDS: LEVOTHYROXINE 88 MCG TAB PO SCH (09:35)
[2018-03-23] MEDS ORDERED: Potassium Replacement Protocol 1 EACH MISC MISCELLANE PRN (10:06)
[2018-03-23 10:10] LABS: Glucose,Whole Blood 288 mg/dL (75-99)
--- NOTE | 2018-03-23 10:41 | P.PN ---
Subjective Progress Note Date: 03/23/18 this is a 77-year-old female patient of Dr. Alonso. Patient presented to the emergency room with complaints of increased shortness of breath that started a few days ago. Patient does state she is oxygen dependent at home. Wearing mostly 2 L but has required 3 L over the past 2 days. patient has a past medical history of atrial fibrillation, heart failure, COPD, diabetes mellitus, DVT thrombosis, GERD, hyperlipidemia, hypertension, osteoarthritis, renal disease, rheumatoid arthritis, sleep apnea and thyroid disorder. Patient's cannot recall seeing a form builder outpatient. Patient has seen Dr. Peters in the past during inpatient. Dr. Behzad kaur pulmonary has been consulted. chest x-ray completed showing mild pulmonary fibrosis. There is complaining of the linear infiltrate and atelectasis in the right midlung compared to last exam. No pulmonary consolidation. EKG completed showing sinus rhythm with first-degree AV block. Left anterior vascular block. patient also has bilateral cellulitis on lower extremities. Patient states she has visiting nursing changing dressing weekly. Patient has seen Dr. Fracisco kaur infectious disease in the past. Patient also has open sore on backside. Dr. Fracisco kaur infectious disease has been consulted. Patient has been started on Solu-Medrol 60 mg every 6 hours. at this time patient denies chest pain. Patient is still complaining of shortness of breath. Patient denies nausea vomiting or diarrhea. she does states she's been having some burning with urination. Urinalysis has been ordered. On 03/23/2018 patient is alert and orientated to 3 resting comfortably in chair. Patient does state breathing is slightly improved. At this time patient denies chest pain. Patient denies nausea vomiting or diarrhea. Patient has been started on insulin drip due to elevated blood sugars. Objective - Vital Signs Vital signs: Vital Signs Temp 97.4 F L 03/23/18 07:20 Pulse 90 03/23/18 08:56 Resp 16 03/23/18 08:38 BP 120/79 03/23/18 07:20 Pulse Ox 98 03/23/18 08:38 Intake & Output 03/22/18 03/23/18 03/23/18 18:59 06:59 18:59 Intake Total 1640 546.648 15.352 Balance 1640 546.648 15.352 Intake: Intake, IV Titration 140 546.648 15.352 Amount Insulin Regular 100 unit 386.648 15.352 In Sodium Chloride 0.9% 100 ml @ Titrate IV .Q0M ANATOLY Rx#:[id number] Sodium Chloride 0.9% 1, 140 160 000 ml @ 20 mls/hr IV . Q24H ANATOLY Rx#:[id number] Oral 1500 Other: # Voids 2 - Exam Head normocephalic Neck supple Lungs clear to auscultation bilaterally no wheezing or crackles Heart regular rate and rhythm S1-S2, no rub or gallop Abdomen is soft nontender nondistended positive bowel sounds no hepatosplenomegaly Extremities no edema Neuro alert and orientated to 3 - Labs CBC & Chem 7: 03/23/18 08:06 03/23/18 08:06 Labs: Abnormal Lab Results - Last 24 Hours (Table) 03/22/18 03/22/18 03/22/18 Range/Units 11:37 12:02 16:50 WBC (3.8-10.6) k/uL Neutrophils # (1.3-7.7) k/uL PT 13.5 H (9.0-12.0) sec INR 1.4 H (<1.2) Potassium (3.5-5.1) mmol/L Chloride (98-107) mmol/L Carbon Dioxide (22-30) mmol/L BUN (7-17) mg/dL Creatinine (0.52-1.04) mg/dL Glucose (74-99) mg/dL POC Glucose (mg/dL) 437 H (75-99) mg/dL Urine Glucose (UA) 4+ H (Negative) 03/22/18 03/22/18 03/22/18 Range/Units 17:02 17:03 17:24 WBC (3.8-10.6) k/uL Neutrophils # (1.3-7.7) k/uL PT (9.0-12.0) sec INR (<1.2) Potassium (3.5-5.1) mmol/L Chloride (98-107) mmol/L Carbon Dioxide (22-30) mmol/L BUN (7-17) mg/dL Creatinine (0.52-1.04) mg/dL Glucose 486 H (74-99) mg/dL POC Glucose (mg/dL) 513 H 475 H (75-99) mg/dL Urine Glucose (UA) (Negative) 03/22/18 03/22/18 03/22/18 Range/Units 20:17 21:28 22:07 WBC (3.8-10.6) k/uL Neutrophils # (1.3-7.7) k/uL PT (9.0-12.0) sec INR (<1.2) Potassium (3.5-5.1) mmol/L Chloride (98-107) mmol/L Carbon Dioxide (22-30) mmol/L BUN (7-17) mg/dL Creatinine (0.52-1.04) mg/dL Glucose (74-99) mg/dL POC Glucose (mg/dL) 553 H 544 H 551 H (75-99) mg/dL Urine Glucose (UA) (Negative) 03/22/18 03/22/18 03/22/18 Range/Units 22:34 23:02 23:32 WBC (3.8-10.6) k/uL Neutrophils # (1.3-7.7) k/uL PT (9.0-12.0) sec INR (<1.2) Potassium (3.5-5.1) mmol/L Chloride (98-107) mmol/L Carbon Dioxide (22-30) mmol/L BUN (7-17) mg/dL Creatinine (0.52-1.04) mg/dL Glucose (74-99) mg/dL POC Glucose (mg/dL) 565 H 558 H 484 H (75-99) mg/dL Urine Glucose (UA) (Negative) 03/23/18 03/23/18 03/23/18 Range/Units 00:00 00:31 00:59 WBC (3.8-10.6) k/uL Neutrophils # (1.3-7.7) k/uL PT (9.0-12.0) sec INR (<1.2) Potassium (3.5-5.1) mmol/L Chloride (98-107) mmol/L Carbon Dioxide (22-30) mmol/L BUN (7-17) mg/dL Creatinine (0.52-1.04) mg/dL Glucose (74-99) mg/dL POC Glucose (mg/dL) 470 H 421 H 445 H (75-99) mg/dL Urine Glucose (UA) (Negative) 03/23/18 03/23/18 03/23/18 Range/Units 01:35 02:00 02:30 WBC (3.8-10.6) k/uL Neutrophils # (1.3-7.7) k/uL PT (9.0-12.0) sec INR (<1.2) Potassium (3.5-5.1) mmol/L Chloride (98-107) mmol/L Carbon Dioxide (22-30) mmol/L BUN (7-17) mg/dL Creatinine (0.52-1.04) mg/dL Glucose (74-99) mg/dL POC Glucose (mg/dL) 399 H 355 H 325 H (75-99) mg/dL Urine Glucose (UA) (Negative) 03/23/18 03/23/18 03/23/18 Range/Units 03:01 03:33 04:02 WBC (3.8-10.6) k/uL Neutrophils # (1.3-7.7) k/uL PT (9.0-12.0) sec INR (<1.2) Potassium (3.5-5.1) mmol/L Chloride (98-107) mmol/L Carbon Dioxide (22-30) mmol/L BUN (7-17) mg/dL Creatinine (0.52-1.04) mg/dL Glucose (74-99) mg/dL POC Glucose (mg/dL) 300 H 293 H 241 H (75-99) mg/dL Urine Glucose (UA) (Negative) 03/23/18 03/23/18 03/23/18 Range/Units 05:02 06:09 07:02 WBC (3.8-10.6) k/uL Neutrophils # (1.3-7.7) k/uL PT (9.0-12.0) sec INR (<1.2) Potassium (3.5-5.1) mmol/L Chloride (98-107) mmol/L Carbon Dioxide (22-30) mmol/L BUN (7-17) mg/dL Creatinine (0.52-1.04) mg/dL Glucose (74-99) mg/dL POC Glucose (mg/dL) 227 H 203 H 205 H (75-99) mg/dL Urine Glucose (UA) (Negative) 03/23/18 03/23/18 03/23/18 Range/Units 08:02 08:06 08:06 WBC 24.6 H (3.8-10.6) k/uL Neutrophils # 22.8 H (1.3-7.7) k/uL PT (9.0-12.0) sec INR (<1.2) Potassium 3.3 L (3.5-5.1) mmol/L Chloride 93 L (98-107) mmol/L Carbon Dioxide 32 H (22-30) mmol/L BUN 66 H (7-17) mg/dL Creatinine 1.74 H (0.52-1.04) mg/dL Glucose 203 H (74-99) mg/dL POC Glucose (mg/dL) 214 H (75-99) mg/dL Urine Glucose (UA) (Negative) 03/23/18 03/23/18 03/23/18 Range/Units 08:06 09:05 10:09 WBC (3.8-10.6) k/uL Neutrophils # (1.3-7.7) k/uL PT 13.5 H (9.0-12.0) sec INR 1.4 H (<1.2) Potassium (3.5-5.1) mmol/L Chloride (98-107) mmol/L Carbon Dioxide (22-30) mmol/L BUN (7-17) mg/dL Creatinine (0.52-1.04) mg/dL Glucose (74-99) mg/dL POC Glucose (mg/dL) 262 H 288 H (75-99) mg/dL Urine Glucose (UA) (Negative) Assessment and Plan Assessment: 1. Dyspnea related to exacerbation of COPD. Chest x-ray completed showing mild pulmonary fibrosis. There is clearing of the linear infiltrate and atelectasis in the right midlung compared to last exam. No pulmonary consolidation. Patient started on Solu-Medrol 60 mg every [address] Peters consulted for pulmonary. 2. Bilateral lower extremity cellulitis. Patient currently has Silvadene dressing and Myles wraps. Patient states she has home visiting nursing changing dressing weekly. Dr. Yap per infectious disease has been consulted. patient has been started on cefazolin 9er infectious disease 3. History of atrial fibrillation. Shing currently on Coumadin. Coumadin reordered. PT/INR has been ordered. INR 1.4 4. chronic diastolic congestive heart failure. patient does wear home O2 5. History of deep vein thrombosis and pulmonary embolism. Patient is on Coumadin. 6. History of diabetes mellitus. Home medications resumed. steroid insulin sliding scale initiated. Patient started on insulin drip 7. History of GERD 8. History of hypertension 9. History of hyperlipidemia 10. History of chronic kidney disease stage IV.creatinine 1.69 and bun 71. this does appear to be baseline for patient 11. History of sleep apnea 12. History of hypothyroidism. continue Synthroid 13. decubitus ulcer coccyx present on admission. Apply dressing. Dr. Yap per infectious disease consulted DVT prophylaxis Coumadin. GI prophylaxis Protonix I performed an examination of the patient and discussed their management with the Nurse Practitioner. I have reviewed the Nurse Practitioner's notes and agree with the documented findings and plan of care
[2018-03-23 11:07] LABS: Glucose,Whole Blood 344 mg/dL (75-99)
--- NOTE | 2018-03-23 11:23 | P.PN ---
Subjective Progress Note Date: 03/23/18 Principal diagnosis: Acute on chronic hypoxic respiratory failure, multifactorial, secondary to an acute exacerbation of COPD, acute exacerbation of diastolic congestive heart failure, mild pulmonary fibrosis, morbid obesity with suspected obesity/ hypoventilation syndrome. This is a 77-year-old female with history of chronic hypoxic respiratory failure , known to have history of COPD, remote smoking history, patient is maintained on oxygen at 3 L nasal cannula. Known history of chronic atrial fibrillation, congestive heart failure, COPD, diabetes, deep vein thrombosis, hypertension, osteoarthritis, obstructive sleep apnea syndrome, and hypothyroidism. Normally sees Dr. Alonso as her primary care physician, patient was never seen by a public information specialist for her pulmonary status, however a year ago she presented with urinary tract infection and sepsis and back then she was seen by Dr. Patrick on consultation. Patient presented to the ER today with a few days' history of increased shortness of breath, cough, increased fluid retention, increased leg swelling, increased abdominal girth, and just not feeling well. Patient denies any fever, no chills, she describes the cough as productive with whitish phlegm, denies any hemoptysis, no chest pain. Patient had a chest x- ray done on this admission, the radiologist questioned mild pulmonary fibrosis, however I felt that the patient has increased interstitial markings, prominent pulmonary vasculature, some linear atelectasis in the right midlung, no clear- cut evidence of pneumonia or infiltrate. Patient was given diuretics, steroids , bronchodilators, and she is still on oxygen at 3 L nasal cannula. Minimal improvement since her admission. Patient is seen again today 03/23/2018 in follow-up on the surgical floor. She is awake and alert in no acute distress. She is breathing easier today as compared to yesterday. Maintaining good O2 saturations in the 90s on 2 L/m per nasal cannula. She's been afebrile. Hemodynamically stable. She remains on IV diuretics. She remains on bronchodilators, IV Solu-Medrol. Antibiotics in the form of cefazolin. Objective - Vital Signs Vital signs: Vital Signs Temp 97.4 F L 03/23/18 07:20 Pulse 90 03/23/18 08:56 Resp 16 03/23/18 08:38 BP 120/79 03/23/18 07:20 Pulse Ox 98 03/23/18 08:38 Intake & Output 03/22/18 03/23/18 03/23/18 18:59 06:59 18:59 Intake Total 1640 546.648 15.352 Balance 1640 546.648 15.352 Intake: Intake, IV Titration 140 546.648 15.352 Amount Insulin Regular 100 unit 386.648 15.352 In Sodium Chloride 0.9% 100 ml @ Titrate IV .Q0M ANATOLY Rx#:[id number] Sodium Chloride 0.9% 1, 140 160 000 ml @ 20 mls/hr IV . Q24H ANATOLY Rx#:[id number] Oral 1500 Other: # Voids 2 - Exam GENERAL EXAM: Morbidly obese. Alert, active, comfortable in no apparent distress. HEAD: Normocephalic. EYES: Normal reaction of pupils, equal size. NOSE: Clear with pink turbinates. THROAT: Crowding of the posterior pharynx. No erythema or exudates. NECK: Short. No masses, no JVD. CHEST: No chest wall deformity. LUNGS: Equal air entry with eczema posterior bases, few scattered rhonchi, diminished. CVS: S1 and S2 normal with no audible murmur, irregular rhythm. ABDOMEN: No hepatosplenomegaly, normal bowel sounds, no guarding or rigidity. SPINE: No scoliosis or deformity SKIN: No rashes CENTRAL NERVOUS SYSTEM: No focal deficits, tone is normal in all 4 extremities. EXTREMITIES: There is 2-3+ by lateral lower extremity peripheral edema, changes of chronic venous stasis, Myles wraps in place. - Labs CBC & Chem 7: 03/23/18 08:06 03/23/18 08:06 Labs: Abnormal Lab Results - Last 24 Hours (Table) 03/22/18 03/22/18 03/22/18 Range/Units 11:37 12:02 16:50 WBC (3.8-10.6) k/uL Neutrophils # (1.3-7.7) k/uL PT 13.5 H (9.0-12.0) sec INR 1.4 H (<1.2) Potassium (3.5-5.1) mmol/L Chloride (98-107) mmol/L Carbon Dioxide (22-30) mmol/L BUN (7-17) mg/dL Creatinine (0.52-1.04) mg/dL Glucose (74-99) mg/dL POC Glucose (mg/dL) 437 H (75-99) mg/dL Urine Glucose (UA) 4+ H (Negative) 03/22/18 03/22/18 03/22/18 Range/Units 17:02 17:03 17:24 WBC (3.8-10.6) k/uL Neutrophils # (1.3-7.7) k/uL PT (9.0-12.0) sec INR (<1.2) Potassium (3.5-5.1) mmol/L Chloride (98-107) mmol/L Carbon Dioxide (22-30) mmol/L BUN (7-17) mg/dL Creatinine (0.52-1.04) mg/dL Glucose 486 H (74-99) mg/dL POC Glucose (mg/dL) 513 H 475 H (75-99) mg/dL Urine Glucose (UA) (Negative) 03/22/18 03/22/18 03/22/18 Range/Units 20:17 21:28 22:07 WBC (3.8-10.6) k/uL Neutrophils # (1.3-7.7) k/uL PT (9.0-12.0) sec INR (<1.2) Potassium (3.5-5.1) mmol/L Chloride (98-107) mmol/L Carbon Dioxide (22-30) mmol/L BUN (7-17) mg/dL Creatinine (0.52-1.04) mg/dL Glucose (74-99) mg/dL POC Glucose (mg/dL) 553 H 544 H 551 H (75-99) mg/dL Urine Glucose (UA) (Negative) 03/22/18 03/22/18 03/22/18 Range/Units 22:34 23:02 23:32 WBC (3.8-10.6) k/uL Neutrophils # (1.3-7.7) k/uL PT (9.0-12.0) sec INR (<1.2) Potassium (3.5-5.1) mmol/L Chloride (98-107) mmol/L Carbon Dioxide (22-30) mmol/L BUN (7-17) mg/dL Creatinine (0.52-1.04) mg/dL Glucose (74-99) mg/dL POC Glucose (mg/dL) 565 H 558 H 484 H (75-99) mg/dL Urine Glucose (UA) (Negative) 03/23/18 03/23/18 03/23/18 Range/Units 00:00 00:31 00:59 WBC (3.8-10.6) k/uL Neutrophils # (1.3-7.7) k/uL PT (9.0-12.0) sec INR (<1.2) Potassium (3.5-5.1) mmol/L Chloride (98-107) mmol/L Carbon Dioxide (22-30) mmol/L BUN (7-17) mg/dL Creatinine (0.52-1.04) mg/dL Glucose (74-99) mg/dL POC Glucose (mg/dL) 470 H 421 H 445 H (75-99) mg/dL Urine Glucose (UA) (Negative) 03/23/18 03/23/18 03/23/18 Range/Units 01:35 02:00 02:30 WBC (3.8-10.6) k/uL Neutrophils # (1.3-7.7) k/uL PT (9.0-12.0) sec INR (<1.2) Potassium (3.5-5.1) mmol/L Chloride (98-107) mmol/L Carbon Dioxide (22-30) mmol/L BUN (7-17) mg/dL Creatinine (0.52-1.04) mg/dL Glucose (74-99) mg/dL POC Glucose (mg/dL) 399 H 355 H 325 H (75-99) mg/dL Urine Glucose (UA) (Negative) 03/23/18 03/23/18 03/23/18 Range/Units 03:01 03:33 04:02 WBC (3.8-10.6) k/uL Neutrophils # (1.3-7.7) k/uL PT (9.0-12.0) sec INR (<1.2) Potassium (3.5-5.1) mmol/L Chloride (98-107) mmol/L Carbon Dioxide (22-30) mmol/L BUN (7-17) mg/dL Creatinine (0.52-1.04) mg/dL Glucose (74-99) mg/dL POC Glucose (mg/dL) 300 H 293 H 241 H (75-99) mg/dL Urine Glucose (UA) (Negative) 03/23/18 03/23/18 03/23/18 Range/Units 05:02 06:09 07:02 WBC (3.8-10.6) k/uL Neutrophils # (1.3-7.7) k/uL PT (9.0-12.0) sec INR (<1.2) Potassium (3.5-5.1) mmol/L Chloride (98-107) mmol/L Carbon Dioxide (22-30) mmol/L BUN (7-17) mg/dL Creatinine (0.52-1.04) mg/dL Glucose (74-99) mg/dL POC Glucose (mg/dL) 227 H 203 H 205 H (75-99) mg/dL Urine Glucose (UA) (Negative) 03/23/18 03/23/18 03/23/18 Range/Units 08:02 08:06 08:06 WBC 24.6 H (3.8-10.6) k/uL Neutrophils # 22.8 H (1.3-7.7) k/uL PT (9.0-12.0) sec INR (<1.2) Potassium 3.3 L (3.5-5.1) mmol/L Chloride 93 L (98-107) mmol/L Carbon Dioxide 32 H (22-30) mmol/L BUN 66 H (7-17) mg/dL Creatinine 1.74 H (0.52-1.04) mg/dL Glucose 203 H (74-99) mg/dL POC Glucose (mg/dL) 214 H (75-99) mg/dL Urine Glucose (UA) (Negative) 03/23/18 03/23/18 03/23/18 Range/Units 08:06 09:05 10:09 WBC (3.8-10.6) k/uL Neutrophils # (1.3-7.7) k/uL PT 13.5 H (9.0-12.0) sec INR 1.4 H (<1.2) Potassium (3.5-5.1) mmol/L Chloride (98-107) mmol/L Carbon Dioxide (22-30) mmol/L BUN (7-17) mg/dL Creatinine (0.52-1.04) mg/dL Glucose (74-99) mg/dL POC Glucose (mg/dL) 262 H 288 H (75-99) mg/dL Urine Glucose (UA) (Negative) 03/23/18 Range/Units 11:05 WBC (3.8-10.6) k/uL Neutrophils # (1.3-7.7) k/uL PT (9.0-12.0) sec INR (<1.2) Potassium (3.5-5.1) mmol/L Chloride (98-107) mmol/L Carbon Dioxide (22-30) mmol/L BUN (7-17) mg/dL Creatinine (0.52-1.04) mg/dL Glucose (74-99) mg/dL POC Glucose (mg/dL) 344 H (75-99) mg/dL Urine Glucose (UA) (Negative) Assessment and Plan Assessment: Impression: 1 acute on chronic hypoxic respiratory failure, multifactorial, secondary to acute exacerbation of COPD, suspect some component of pulmonary edema secondary to diastolic congestive heart failure, midlung atelectasis, and possible mild pulmonary fibrosis, morbid obesity 2 acute on chronic bilateral lower extremity cellulitis, infectious disease will be addressing. 3 chronic atrial fibrillation, presently on Coumadin. 4 chronic diastolic congestive heart failure, previous echocardiogram revealed preserved left ventricular systolic function 5 multiple comorbidities including morbid obesity, obesity/hypoventilation syndrome, chronic kidney disease stage IV, benign essential hypertension, hyperlipidemia, type 2 diabetes and history of deep vein thromboses and pulmonary embolism patient is still on Coumadin which is appropriate for now and no need for further workup for thromboembolic disease at this point. Recommendation: The patient was seen and evaluated by Dr. Mccoy. Chest x-ray pending. She is currently stable from the pulmonary standpoint. Continue with her current medications. She remains on IV diuretics. ID is on the case. We will continue to follow. I, the cosigning physician, performed a history & physical examination of the patient. Lungs sounds with crackles in bilateral bases, few scattered rhonchi, diminished. Maintaining good O2 saturations in the 90s on 2 L/m per nasal cannula. I discussed the assessment and plan of care with my nurse practitioner , Berkley Yost. I attest to the above note as dictated by her.
--- NOTE | 2018-03-23 11:39 | XR ---
EXAMINATION TYPE: XR chest 1V portable DATE OF EXAM: 03/23/2018 COMPARISON: 03/21/2018 HISTORY: Difficulty breathing TECHNIQUE: Single frontal view of the chest is obtained. FINDINGS: There is some coarsening of interstitial markings in the lower lobes. There are chest lead s. There is minor spurring in the thoracic spine. There are probably some calcified granulomata in th e lower lobes. On the right hilum noted. Limited inspiration seen. Patient is slightly rotated. Heart size stable. IMPRESSION: Stable coarsened interstitium unchanged from the prior exam. There are persistent bilate ral hilar prominence greater on the right. Correlate for interstitial pneumonitis or chronic lung dis ease.
[2018-03-23 12:17] LABS: Glucose,Whole Blood 389 mg/dL (75-99)
[2018-03-23] MEDS: traMADol 50 MG TAB PO PRN (12:36)
[2018-03-23] MEDS ORDERED: INSULIN DETEMIR 100 UNIT/ML 10 ML VIAL SQ SCH (15:00)
[2018-03-23 15:02] LABS: Glucose,Whole Blood 418 mg/dL (75-99)
[2018-03-23] MEDS ORDERED: INSULIN REGULAR BOLUS (FROM DRIP BAG) IV ONE (15:28)
[2018-03-23 17:33] LABS: Glucose,Whole Blood 383 mg/dL (75-99)
[2018-03-23] MEDS ORDERED: WARFARIN 5 MG TAB PO ONE (18:00)
[2018-03-23 18:07] LABS: Glucose,Whole Blood 397 mg/dL (75-99)
[2018-03-23 18:42] LABS: Glucose,Whole Blood 349 mg/dL (75-99)
[2018-03-23 19:05] LABS: Glucose,Whole Blood 384 mg/dL (75-99)
[2018-03-23 19:38] LABS: Glucose,Whole Blood 370 mg/dL (75-99)
[2018-03-23 20:03] LABS: Glucose,Whole Blood 402 mg/dL (75-99)
[2018-03-23 20:36] LABS: Glucose,Whole Blood 356 mg/dL (75-99)
[2018-03-23 21:08] LABS: Glucose,Whole Blood 363 mg/dL (75-99)
[2018-03-23 22:00] LABS: Glucose,Whole Blood 404 mg/dL (75-99)
--- NOTE | 2018-03-23 22:08 | PN ---
PROGRESS NOTE DATE OF SERVICE: 03/23/2018. REASON FOR FOLLOWUP: Bilateral lower extremity cellulitis. INTERVAL HISTORY: The patient is currently afebrile. Her breathing has slightly improved. Denies significant chest pain. Occasional abdominal pain. No pain to the leg area. EXAMINATION: Blood pressure is 124/70 with a pulse of 96, temperature 97.6. She is 95% 2 L nasal cannula. General description is an elderly female up in the chair in no distress. RESPIRATORY SYSTEM: Unlabored breathing. Clear to auscultation anteriorly. HEART: S1, S2. Regular rate and rhythm. ABDOMEN: Legs are currently wrapped up. No obvious drainage on the dressing. LABS: White count is 24.6. Blood culture not obtained. DIAGNOSTIC IMPRESSION AND PLAN: Patient with bilateral lower extremity cellulitis in a patient admitted to the hospital with fluid overload, possible chronic obstructive pulmonary disease/congestive heart failure exacerbation. Plan is keep the patient on cefazolin 2 g q.8h and Myles wrap to keep the swelling down. Continue supportive care. MMODL / IJN: [id number] /
[2018-03-23 22:44] LABS: Glucose,Whole Blood 346 mg/dL (75-99)
[2018-03-23 23:05] LABS: Glucose,Whole Blood 414 mg/dL (75-99)
[2018-03-23 23:37] LABS: Glucose,Whole Blood 362 mg/dL (75-99)
[2018-03-24 00:03] LABS: Glucose,Whole Blood 345 mg/dL (75-99)
[2018-03-24] MEDS: FUROSEMIDE 10 MG/ML 4 ML VIAL IV SCH ×4 (00:10→23:54)
[2018-03-24] MEDS: methylPREDNISolone SOD SUCCI 125 MG/2 ML VIAL IV SCH ×2 (00:10→05:26)
[2018-03-24] MEDS: ceFAZolin IN SWFI 2 GM/20 ML SYRINGE IVP SCH ×4 (00:10→23:54)
[2018-03-24 00:37] LABS: Glucose,Whole Blood 322 mg/dL (75-99)
[2018-03-24] MEDS: POTASSIUM CHLORIDE ER 20 MEQ TAB.ER PO SCH ×4 (00:51→15:54)
[2018-03-24 01:05] LABS: Glucose,Whole Blood 332 mg/dL (75-99)
[2018-03-24 01:36] LABS: Glucose,Whole Blood 307 mg/dL (75-99)
[2018-03-24 02:14] LABS: Glucose,Whole Blood 291 mg/dL (75-99)
[2018-03-24 02:38] LABS: Glucose,Whole Blood 288 mg/dL (75-99)
[2018-03-24 03:05] LABS: Glucose,Whole Blood 271 mg/dL (75-99)
[2018-03-24 03:34] LABS: Glucose,Whole Blood 239 mg/dL (75-99)
[2018-03-24 04:32] LABS: Glucose,Whole Blood 220 mg/dL (75-99)
[2018-03-24] MEDS: LEVOTHYROXINE 88 MCG TAB PO SCH (05:26)
[2018-03-24 05:37] LABS: Glucose,Whole Blood 260 mg/dL (75-99)
[2018-03-24 06:28] LABS: Glucose,Whole Blood 213 mg/dL (75-99)
[2018-03-24] MEDS: INSULIN REGULAR 100 UNIT in SODIUM CHLORIDE 0.9% 100 ML IV SCH ×2 (07:03→18:21)
[2018-03-24] MEDS: SODIUM CHLORIDE 0.9% 1,000 ML IV SCH (07:06)
[2018-03-24] MEDS: IPRATROPIUM-ALBUTEROL 3 ML NEB INHALATION SCH ×4 (07:11→20:04)
[2018-03-24 07:25] LABS: Glucose,Whole Blood 172 mg/dL (75-99)
[2018-03-24] MEDS: INSULIN ASPART 100 UNIT/ML 1 ML 10 ML VIAL SQ SCH ×3 (07:45→17:48)
[2018-03-24] MEDS: PANTOPRAZOLE 40 MG TABLET PO SCH (07:52)
[2018-03-24] MEDS: ISOSORBIDE MONONITRATE ER 30 MG TAB.ER.24H PO SCH (08:31)
[2018-03-24] MEDS: FERROUS SULFATE 325 MG TAB PO SCH ×2 (08:31→21:27)
[2018-03-24] MEDS: GABAPENTIN 100 MG CAP PO SCH ×2 (08:32→21:27)
[2018-03-24] MEDS: traMADol 50 MG TAB PO PRN ×2 (08:33→21:29)
[2018-03-24 09:06] LABS: Glucose,Whole Blood 214 mg/dL (75-99)
--- NOTE | 2018-03-24 10:33 | P.PN ---
Subjective Progress Note Date: 03/24/18 Principal diagnosis: Acute on chronic hypoxic respiratory failure, multifactorial, COPD exacerbation , acute exacerbation of diastolic congestive heart failure, mild pulmonary fibrosis, morbid obesity This is a 77-year-old female with history of chronic hypoxic respiratory failure , known to have history of COPD, remote smoking history, patient is maintained on oxygen at 3 L nasal cannula. Known history of chronic atrial fibrillation, congestive heart failure, COPD, diabetes, deep vein thrombosis, hypertension, osteoarthritis, obstructive sleep apnea syndrome, and hypothyroidism. Normally sees Dr. Alonso as her primary care physician, patient was never seen by a swine extension field specialist for her pulmonary status, however a year ago she presented with urinary tract infection and sepsis and back then she was seen by Dr. Patrcik on consultation. Patient presented to the ER today with a few days' history of increased shortness of breath, cough, increased fluid retention, increased leg swelling, increased abdominal girth, and just not feeling well. Patient denies any fever, no chills, she describes the cough as productive with whitish phlegm, denies any hemoptysis, no chest pain. Patient had a chest x- ray done on this admission, the radiologist questioned mild pulmonary fibrosis, however I felt that the patient has increased interstitial markings, prominent pulmonary vasculature, some linear atelectasis in the right midlung, no clear- cut evidence of pneumonia or infiltrate. Patient was given diuretics, steroids , bronchodilators, and she is still on oxygen at 3 L nasal cannula. Minimal improvement since her admission. Patient is seen again today 03/23/2018 in follow-up on the surgical floor. She is awake and alert in no acute distress. She is breathing easier today as compared to yesterday. Maintaining good O2 saturations in the 90s on 2 L/m per nasal cannula. She's been afebrile. Hemodynamically stable. She remains on IV diuretics. She remains on bronchodilators, IV Solu-Medrol. Antibiotics in the form of cefazolin. On 03/24/2018 patient seen in follow-up on his 3 surgical floor. No acute distress, patient does become dyspneic with ambulation, she has been ambulating with a walker, and one person assistance. Denies any chest pain, she has no cough with production of guzman colored sputum. No fever, no chills. Hemodynamically stable, remains on 2 L per nasal cannula pulse ox 96%, lung sounds are positive for bibasilar crackles. Yesterday chest x-ray has been reviewed, hence showed stable course and interstitial and persistent bilateral hilar prominence. Patient is suspected to have underlying history of mild pulmonary fibrosis. Yesterday's labs showed elevation of the white count to 24.6, however patient remains afebrile, patient does have open draining cellulitis on bilateral lower extremities, ID service is following, and patient is currently on IV cefazolin and local wound care, he still complains of tenderness to touch in her lower extremities, both legs Myles wrapped. Still quite a bit of swelling in lower extremities. She will will continue on IV Lasix at 40 mg every 8 hours, she continues on IV Solu-Medrol, and she is requiring insulin drip for significantly elevated blood sugars, steroid-induced hyperglycemia. She is not bronchospastic on today's exam, no significant chest congestion. We will transition the IV steroids to oral prednisone. Objective - Vital Signs Vital signs: Vital Signs Temp 97.4 F L 03/24/18 07:27 Pulse 82 03/24/18 07:27 Resp 16 03/24/18 07:55 BP 144/83 03/24/18 07:27 Pulse Ox 96 03/24/18 07:27 Intake & Output 03/23/18 03/24/18 03/24/18 18:59 06:59 18:59 Intake Total 56.392 614.443 416.108 Balance 56.392 614.443 416.108 Weight 135.171 kg Intake: Intake, IV Titration 56.392 364.443 16.108 Amount Insulin Regular 100 unit 15.352 In Sodium Chloride 0.9% 100 ml @ Titrate IV .Q0M ANATOLY Rx#:[id number] Insulin Regular 100 unit 41.040 204.443 16.108 In Sodium Chloride 0.9% 100 ml @ Titrate IV .Q0M ANAT[facility]Y Rx#:[id number] Sodium Chloride 0.9% 1, 160 000 ml @ 20 mls/hr IV . Q24H ANATOLY Rx#:[id number] Oral 250 400 Other: Voiding Method Bedside Commode Bedside Commode # Voids 2 4 - Exam GENERAL EXAM: Morbidly obese. Alert, active, comfortable in no apparent distress. HEAD: Normocephalic. EYES: Normal reaction of pupils, equal size. NOSE: Clear with pink turbinates. THROAT: Crowding of the posterior pharynx. No erythema or exudates. NECK: Short. No masses, no JVD. CHEST: No chest wall deformity. LUNGS: Equal air entry with crackles posterior bases, overall diminished breath sounds, no wheezes or rhonchi on today's exam. CVS: S1 and S2 normal with no audible murmur, irregular rhythm. ABDOMEN: No hepatosplenomegaly, normal bowel sounds, no guarding or rigidity. SPINE: No scoliosis or deformity SKIN: No rashes CENTRAL NERVOUS SYSTEM: No focal deficits, tone is normal in all 4 extremities. EXTREMITIES: There is 2-3+ by lateral lower extremity peripheral edema, changes of chronic venous stasis, Myles wraps in place. Skin on the lower extremities is tender to touch - Labs CBC & Chem 7: 03/23/18 08:06 03/23/18 15:47 Labs: Abnormal Lab Results - Last 24 Hours (Table) 03/23/18 03/23/18 03/23/18 Range/Units 11:05 12:16 15:00 POC Glucose (mg/dL) 344 H 389 H 418 H (75-99) mg/dL 03/23/18 03/23/18 03/23/18 Range/Units 17:29 18:04 18:38 POC Glucose (mg/dL) 383 H 397 H 349 H (75-99) mg/dL 03/23/18 03/23/18 03/23/18 Range/Units 19:03 19:35 20:01 POC Glucose (mg/dL) 384 H 370 H 402 H (75-99) mg/dL 03/23/18 03/23/18 03/23/18 Range/Units 20:34 21:06 21:59 POC Glucose (mg/dL) 356 H 363 H 404 H (75-99) mg/dL 03/23/18 03/23/18 03/23/18 Range/Units 22:41 23:03 23:35 POC Glucose (mg/dL) 346 H 414 H 362 H (75-99) mg/dL 03/24/18 03/24/18 03/24/18 Range/Units 00:01 00:35 01:02 POC Glucose (mg/dL) 345 H 322 H 332 H (75-99) mg/dL 03/24/18 03/24/18 03/24/18 Range/Units 01:34 02:11 02:35 POC Glucose (mg/dL) 307 H 291 H 288 H (75-99) mg/dL 03/24/18 03/24/18 03/24/18 Range/Units 03:03 03:31 04:30 POC Glucose (mg/dL) 271 H 239 H 220 H (75-99) mg/dL 03/24/18 03/24/18 03/24/18 Range/Units 05:35 06:27 07:23 POC Glucose (mg/dL) 260 H 213 H 172 H (75-99) mg/dL 03/24/18 Range/Units 09:05 POC Glucose (mg/dL) 214 H (75-99) mg/dL Assessment and Plan Plan: Assessment: 1 acute on chronic hypoxic respiratory failure, multifactorial, secondary to acute exacerbation of COPD, suspect some component of pulmonary edema secondary to diastolic congestive heart failure, midlung atelectasis, and possible mild pulmonary fibrosis, morbid obesity 2 acute on chronic bilateral lower extremity cellulitis, infectious disease will be addressing. 3 steroid induced hyperglycemia 4 chronic atrial fibrillation, presently on Coumadin. 5 chronic diastolic congestive heart failure, previous echocardiogram revealed preserved left ventricular systolic function 6 multiple comorbidities including morbid obesity, obesity/hypoventilation syndrome, chronic kidney disease stage IV, benign essential hypertension, hyperlipidemia, type 2 diabetes and history of deep vein thromboses and pulmonary embolism patient is still on Coumadin which is appropriate for now and no need for further workup for thromboembolic disease at this point. Recommendation: Continue IV diuretics, yesterday's chest x-ray has been reviewed by Dr. Ho, still shows prominent interstitium and persistent bilateral hilar prominence greater on the right. Patient still has significant edema in bilateral lower extremities. Continue current dose of IV Lasix, monitor intake and output, daily weights. Monitor renal profile and electrolyte profile. We will obtain CBC and BMP today. We'll transition the IV steroids to oral prednisone. We'll continue to follow I performed a history & physical examination of the patient and discussed their management with my nurse practitioner, Sana Villalta. I reviewed the nurse practitioner's note and agree with the documented findings and plan of care. Lung sounds are bibasilar crackles. The findings and the impression was discussed with the patient. I attest to the documentation by the nurse practitioner. Time with Patient: Less than 30
[2018-03-24 11:17] LABS: Glucose,Whole Blood 247 mg/dL (75-99)
--- NOTE | 2018-03-24 11:37 | P.PN ---
Subjective Progress Note Date: 03/24/18 this is a 77-year-old female patient of Dr. Alonso. Patient presented to the emergency room with complaints of increased shortness of breath that started a few days ago. Patient does state she is oxygen dependent at home. Wearing mostly 2 L but has required 3 L over the past 2 days. patient has a past medical history of atrial fibrillation, heart failure, COPD, diabetes mellitus, DVT thrombosis, GERD, hyperlipidemia, hypertension, osteoarthritis, renal disease, rheumatoid arthritis, sleep apnea and thyroid disorder. Patient's cannot recall seeing a lobster catcher outpatient. Patient has seen Dr. Peters in the past during inpatient. Dr. Wen per pulmonary has been consulted. chest x-ray completed showing mild pulmonary fibrosis. There is complaining of the linear infiltrate and atelectasis in the right midlung compared to last exam. No pulmonary consolidation. EKG completed showing sinus rhythm with first-degree AV block. Left anterior vascular block. patient also has bilateral cellulitis on lower extremities. Patient states she has visiting nursing changing dressing weekly. Patient has seen Dr. Yap per infectious disease in the past. Patient also has open sore on backside. Dr. Yap per infectious disease has been consulted. Patient has been started on Solu-Medrol 60 mg every 6 hours. at this time patient denies chest pain. Patient is still complaining of shortness of breath. Patient denies nausea vomiting or diarrhea. she does states she's been having some burning with urination. Urinalysis has been ordered. On 03/23/2018 patient is alert and orientated to 3 resting comfortably in chair. Patient does state breathing is slightly improved. At this time patient denies chest pain. Patient denies nausea vomiting or diarrhea. Patient has been started on insulin drip due to elevated blood sugars. On 03/24/2018 patient is alert and oriented 3. Patient currently sitting in chair. Patient remained short of breath post activity. Patient currently on 2 L. Patient remains on insulin drip to due elevated blood sugars. Patient currently also on IV Lasix 40 mg every 8 hours. IV steroids have been transitioned to oral steroids per pulmonary. At this time patient denies chest pain. Patient denies any urinary burning or frequency. Patient denies nausea vomiting diarrhea. Objective - Vital Signs Vital signs: Vital Signs Temp 97.4 F L 03/24/18 07:27 Pulse 88 03/24/18 10:59 Resp 16 03/24/18 07:55 BP 144/83 03/24/18 07:27 Pulse Ox 96 03/24/18 07:27 Intake & Output 03/23/18 03/24/18 03/24/18 18:59 06:59 18:59 Intake Total 56.392 614.443 446.156 Balance 56.392 614.443 446.156 Weight 135.171 kg Intake: Intake, IV Titration 56.392 364.443 46.156 Amount Insulin Regular 100 unit 15.352 In Sodium Chloride 0.9% 100 ml @ Titrate IV .Q0M ANATOLY Rx#:[id number] Insulin Regular 100 unit 41.040 204.443 46.156 In Sodium Chloride 0.9% 100 ml @ Titrate IV .Q0M ANAT[facility] Rx#:[id number] Sodium Chloride 0.9% 1, 160 000 ml @ 20 mls/hr IV . Q24H ANATOLY Rx#:[id number] Oral 250 400 Other: Voiding Method Bedside Commode Bedside Commode # Voids 2 4 - Exam Head normocephalic Neck supple Lungs clear to auscultation bilaterally no wheezing or crackles Heart regular rate and rhythm S1-S2, no rub or gallop Abdomen is soft nontender nondistended positive bowel sounds no hepatosplenomegaly Extremities +3 peripheral edema. Bilateral lower extremity redness Neuro alert and orientated to 3 - Labs CBC & Chem 7: 03/23/18 08:06 03/23/18 15:47 Labs: Abnormal Lab Results - Last 24 Hours (Table) 03/23/18 03/23/18 03/23/18 Range/Units 12:16 15:00 17:29 POC Glucose (mg/dL) 389 H 418 H 383 H (75-99) mg/dL 03/23/18 03/23/18 03/23/18 Range/Units 18:04 18:38 19:03 POC Glucose (mg/dL) 397 H 349 H 384 H (75-99) mg/dL 03/23/18 03/23/18 03/23/18 Range/Units 19:35 20:01 20:34 POC Glucose (mg/dL) 370 H 402 H 356 H (75-99) mg/dL 03/23/18 03/23/18 03/23/18 Range/Units 21:06 21:59 22:41 POC Glucose (mg/dL) 363 H 404 H 346 H (75-99) mg/dL 03/23/18 03/23/18 03/24/18 Range/Units 23:03 23:35 00:01 POC Glucose (mg/dL) 414 H 362 H 345 H (75-99) mg/dL 03/24/18 03/24/18 03/24/18 Range/Units 00:35 01:02 01:34 POC Glucose (mg/dL) 322 H 332 H 307 H (75-99) mg/dL 03/24/18 03/24/18 03/24/18 Range/Units 02:11 02:35 03:03 POC Glucose (mg/dL) 291 H 288 H 271 H (75-99) mg/dL 03/24/18 03/24/18 03/24/18 Range/Units 03:31 04:30 05:35 POC Glucose (mg/dL) 239 H 220 H 260 H (75-99) mg/dL 03/24/18 03/24/18 03/24/18 Range/Units 06:27 07:23 09:05 POC Glucose (mg/dL) 213 H 172 H 214 H (75-99) mg/dL 03/24/18 Range/Units 11:16 POC Glucose (mg/dL) 247 H (75-99) mg/dL Assessment and Plan Assessment: 1. Acute on chronic hypoxic history failure, multifactorial, secondary to acute exacerbation of COPD, suspect some component of pulmonary edema secondary to diastolic congestive heart failure, midlung atelectasis and possible mild pulmonary fibrosis, morbid obesity Chest x-ray completed showing mild pulmonary fibrosis. There is clearing of the linear infiltrate and atelectasis in the right midlung compared to last exam. No pulmonary consolidation. Patient started on Solu-Medrol 60 mg every 6 hours. Per pulmonary services patient has been started on 40 mg IV Lasix every 8 hours. Patient's IV Solu- Medrol switched to oral prednisone 2. Bilateral lower extremity cellulitis. Patient currently has Silvadene dressing and Myles wraps. Patient states she has home visiting nursing changing dressing weekly. Dr. Yap per infectious disease has been consulted. patient has been started on cefazolin per infectious disease 3. History of atrial fibrillation. Shing currently on Coumadin. Coumadin reordered. PT/INR has been ordered. INR 1.4. Patient received 1 dose of 5 mg Coumadin last night. Assess PT/INR today and adjust accordingly 4. chronic diastolic congestive heart failure. patient does wear home O2 5. History of deep vein thrombosis and pulmonary embolism. Patient is on Coumadin. 6. History of diabetes mellitus. Home medications resumed. steroid insulin sliding scale initiated. Patient started on insulin drip 7. History of GERD 8. History of hypertension 9. History of hyperlipidemia 10. History of chronic kidney disease stage IV.creatinine 1.69 and bun 71. this does appear to be baseline for patient 11. History of sleep apnea 12. History of hypothyroidism. continue Synthroid 13. decubitus ulcer coccyx present on admission. Apply dressing. Dr. Yap per infectious disease consulted DVT prophylaxis Coumadin. GI prophylaxis Protonix I performed an examination of the patient and discussed their management with the Nurse Practitioner. I have reviewed the Nurse Practitioner's notes and agree with the documented findings and plan of care
[2018-03-24 11:38] LABS: Basophils % (A) 0 %; Eosinophils % (A) 0 %; HCT 37.3 % (34.0-46.0); Lymphocytes # (A) 0.5 k/uL (1.0-4.8); Lymphocytes % (A) 3 %; MCH 32.3 pg (25.0-35.0); MCHC 32.1 g/dL (31.0-37.0); MCV 100.6 fL (80.0-100.0); Macrocytosis Slight; Mean Platelet Volume 7.8; Monocytes # (A) 0.5 k/uL (0-1.0); Monocytes % (A) 2 %; Neutrophils # (A) 18.6 k/uL (1.3-7.7); Neutrophils % (A) 94 %; Platelet Count 273 k/uL (150-450); RBC 3.71 m/uL (3.80-5.40); WBC 19.7 k/uL (3.8-10.6)
[2018-03-24 11:57] LABS: Albumin 3.6 g/dL (3.5-5.0); Calcium 9.4 mg/dL (8.4-10.2); Potassium 3.4 mmol/L (3.5-5.1); Total Bilirubin 0.3 mg/dL (0.2-1.3); Total Protein 6.4 g/dL (6.3-8.2)
[2018-03-24 12:01] LABS: INR 1.8 (<1.2); Prothrombin Time 16.5 sec (9.0-12.0)
[2018-03-24] MEDS ORDERED: Potassium Replacement Protocol 1 EACH MISC MISCELLANE PRN (14:35)
[2018-03-24 15:10] LABS: Glucose,Whole Blood 270 mg/dL (75-99)
[2018-03-24 17:15] LABS: Glucose,Whole Blood 212 mg/dL (75-99)
--- NOTE | 2018-03-24 17:32 | CT ---
EXAMINATION TYPE: CT chest wo con DATE OF EXAM: 03/24/2018 COMPARISON: HISTORY: Shortness of breath. CT DLP: 616.2 mGycm. Automated Exposure Control for Dose Reduction was Utilized. TECHNIQUE: CT scan of the thorax is performed without IV contrast. FINDINGS: The exam is degraded by patient body habitus. LUNGS: The right middle lobe shows atelectatic change, there is air bronchogram formation, correlate to exclude pneumonia, findings may be due to scar. Left lower lobe also shows probable scar formation . Parenchymal banding is present at the lung bases likely due to scarring. There is no pleural effusi on or pneumothorax seen. The tracheobronchial tree is patent. MEDIASTINUM: Lack of IV contrast is noted to limit evaluation for mediastinal and especially hilar ad enopathy. There are no definitive greater than 1 cm hilar or mediastinal lymph nodes. The heart is en larged. Pulmonary arteries enlarged, correlate for pulmonary artery hypertension. Calcified mediastin al nodes are present. There are coronary artery calcifications, mitral annular calcification. OTHER: No additional significant abnormality is seen. IMPRESSION: Exam is degraded due to patient body habitus. Old granulomatous disease. Coronary artery disease. Correlate for pulmonary artery hypertension. Suspect atelectasis or scarring, correlate to e xclude pneumonia.
[2018-03-24] MEDS ORDERED: WARFARIN 5 MG TAB PO ONE (18:00)
[2018-03-24 19:05] LABS: Glucose,Whole Blood 180 mg/dL (75-99)
[2018-03-24 20:57] LABS: Glucose,Whole Blood 205 mg/dL (75-99)
--- NOTE | 2018-03-24 22:37 | PN ---
PROGRESS NOTE DATE OF SERVICE: 03/24/2018. REASON FOR FOLLOWUP: Bilateral lower extremity cellulitis. INTERVAL HISTORY: The patient is currently afebrile. She is breathing more comfortably. Denies significant chest pain. Occasional cough. No abdominal pain or any pain to the leg area. EXAMINATION: Blood pressure is 106/66, pulse of 91, temperature 97.5, he is 96% on room air. GENERAL DESCRIPTION: An elderly female up in the chair in no distress. RESPIRATORY SYSTEM: Unlabored breathing with decreased breath sounds at the bases. HEART: S1, S2. Regular rate and rhythm. EXTREMITIES: Lower extremity swelling persists but the redness has improved. LABS: Hemoglobin is 12, white count 19.7, BUN of 77, creatinine . DIAGNOSTIC IMPRESSION AND PLAN: Patient with bilateral lower extremity cellulitis. The patient did have diffuse swelling and redness, likely streptococcal disease. Plan at this time is to keep the patient on cefazolin along with Myles wrap to keep the swelling down. Hopefully finish therapy with oral antibiotics. Continue supportive care. MMODL / IJN: [id number] /
[2018-03-24 22:53] LABS: Glucose,Whole Blood 212 mg/dL (75-99)
[2018-03-25 00:58] LABS: Glucose,Whole Blood 186 mg/dL (75-99)
[2018-03-25 02:59] LABS: Glucose,Whole Blood 150 mg/dL (75-99)
[2018-03-25 04:55] LABS: Glucose,Whole Blood 146 mg/dL (75-99)
[2018-03-25] MEDS: LEVOTHYROXINE 88 MCG TAB PO SCH (06:00)
[2018-03-25 07:17] LABS: Glucose,Whole Blood 149 mg/dL (75-99)
[2018-03-25 07:57] LABS: INR 2.3 (<1.2); Prothrombin Time 20.5 sec (9.0-12.0)
[2018-03-25 08:06] LABS: Albumin 3.5 g/dL (3.5-5.0); Calcium 9.3 mg/dL (8.4-10.2); Potassium 3.6 mmol/L (3.5-5.1); Total Bilirubin 0.2 mg/dL (0.2-1.3); Total Protein 6.3 g/dL (6.3-8.2)
[2018-03-25 08:30] LABS: Basophils % (A) 0 %; Eosinophils % (A) 0 %; HCT 36.5 % (34.0-46.0); HGB 12.3 gm/dL (11.4-16.0); Hypochromasia Slight; Lymphocytes # (A) 0.8 k/uL (1.0-4.8); Lymphocytes % (A) 6 %; MCH 33.8 pg (25.0-35.0); MCHC 33.8 g/dL (31.0-37.0); MCV 100.2 fL (80.0-100.0); Macrocytosis Slight; Mean Platelet Volume 7.9; Monocytes # (A) 0.6 k/uL (0-1.0); Monocytes % (A) 4 %; Neutrophils # (A) 12.9 k/uL (1.3-7.7); Neutrophils % (A) 89 %; Platelet Count 257 k/uL (150-450); RBC 3.64 m/uL (3.80-5.40); RDW 14.7 % (11.5-15.5); WBC 14.6 k/uL (3.8-10.6)
[2018-03-25] MEDS: INSULIN ASPART 100 UNIT/ML 1 ML 10 ML VIAL SQ SCH ×4 (08:51→20:58)
[2018-03-25] MEDS: IPRATROPIUM-ALBUTEROL 3 ML NEB INHALATION SCH ×4 (08:51→19:33)
--- NOTE | 2018-03-25 09:16 | P.PN ---
Subjective Progress Note Date: 03/25/18 this is a 77-year-old female patient of Dr. Alonso. Patient presented to the emergency room with complaints of increased shortness of breath that started a few days ago. Patient does state she is oxygen dependent at home. Wearing mostly 2 L but has required 3 L over the past 2 days. patient has a past medical history of atrial fibrillation, heart failure, COPD, diabetes mellitus, DVT thrombosis, GERD, hyperlipidemia, hypertension, osteoarthritis, renal disease, rheumatoid arthritis, sleep apnea and thyroid disorder. Patient's cannot recall seeing a offal icer poultry outpatient. Patient has seen Dr. Peters in the past during inpatient. Dr. Wen per pulmonary has been consulted. chest x-ray completed showing mild pulmonary fibrosis. There is complaining of the linear infiltrate and atelectasis in the right midlung compared to last exam. No pulmonary consolidation. EKG completed showing sinus rhythm with first-degree AV block. Left anterior vascular block. patient also has bilateral cellulitis on lower extremities. Patient states she has visiting nursing changing dressing weekly. Patient has seen Dr. Yap per infectious disease in the past. Patient also has open sore on backside. Dr. Yap per infectious disease has been consulted. Patient has been started on Solu-Medrol 60 mg every 6 hours. at this time patient denies chest pain. Patient is still complaining of shortness of breath. Patient denies nausea vomiting or diarrhea. she does states she's been having some burning with urination. Urinalysis has been ordered. On 03/23/2018 patient is alert and orientated to 3 resting comfortably in chair. Patient does state breathing is slightly improved. At this time patient denies chest pain. Patient denies nausea vomiting or diarrhea. Patient has been started on insulin drip due to elevated blood sugars. On 03/24/2018 patient is alert and oriented 3. Patient currently sitting in chair. Patient remained short of breath post activity. Patient currently on 2 L. Patient remains on insulin drip to due elevated blood sugars. Patient currently also on IV Lasix 40 mg every 8 hours. IV steroids have been transitioned to oral steroids per pulmonary. At this time patient denies chest pain. Patient denies any urinary burning or frequency. Patient denies nausea vomiting diarrhea. On 03/25/2018 patient is alert and oriented 3. Patient is currently resting comfortably in chair. Patient states improvement with shortness of breath. Patient denies chest pain patient denies nausea vomiting or diarrhea. Patient denies any urinary burning or frequency Objective - Vital Signs Vital signs: Vital Signs Temp 97.5 F L 03/25/18 00:11 Pulse 88 03/25/18 09:05 Resp 17 03/25/18 00:35 BP 129/71 03/25/18 00:11 Pulse Ox 95 03/25/18 00:11 Intake & Output 03/24/18 03/25/18 03/25/18 18:59 06:59 18:59 Intake Total 2113.069 578.132 6.884 Balance 2113.069 578.132 6.884 Weight 135.171 kg Intake: Intake, IV Titration 313.069 228.132 6.884 Amount Insulin Regular 100 unit 113.069 68.132 6.884 In Sodium Chloride 0.9% 100 ml @ Titrate IV .Q0M [facility]AT[facility] Rx#:[id number] Sodium Chloride 0.9% 1, 200 160 000 ml @ 20 mls/hr IV . Q24H ANAT[facility] Rx#:[id number] Oral 1800 350 Other: Voiding Method Bedside Commode Bedside Commode # Voids 2 - Exam Head normocephalic Neck supple Lungs clear to auscultation bilaterally no wheezing or crackles Heart regular rate and rhythm S1-S2, no rub or gallop Abdomen is soft nontender nondistended positive bowel sounds no hepatosplenomegaly Extremities +3 peripheral edema. Bilateral lower extremity redness Neuro alert and orientated to 3 - Labs CBC & Chem 7: 03/25/18 07:17 03/25/18 07:17 Labs: Abnormal Lab Results - Last 24 Hours (Table) 03/24/18 03/24/18 03/24/18 Range/Units 10:20 10:20 10:20 WBC 19.7 H (3.8-10.6) k/uL RBC 3.71 L (3.80-5.40) m/uL MCV 100.6 H (80.0-100.0) fL Neutrophils # 18.6 H (1.3-7.7) k/uL Lymphocytes # 0.5 L (1.0-4.8) k/uL PT 16.5 H (9.0-12.0) sec INR 1.8 H (<1.2) Potassium 3.4 L (3.5-5.1) mmol/L Chloride 93 L (98-107) mmol/L Carbon Dioxide 32 H (22-30) mmol/L BUN 77 H (7-17) mg/dL Creatinine 1.72 H (0.52-1.04) mg/dL Glucose 233 H (74-99) mg/dL POC Glucose (mg/dL) (75-99) mg/dL 03/24/18 03/24/18 03/24/18 Range/Units 11:16 15:08 17:10 WBC (3.8-10.6) k/uL RBC (3.80-5.40) m/uL MCV (80.0-100.0) fL Neutrophils # (1.3-7.7) k/uL Lymphocytes # (1.0-4.8) k/uL PT (9.0-12.0) sec INR (<1.2) Potassium (3.5-5.1) mmol/L Chloride (98-107) mmol/L Carbon Dioxide (22-30) mmol/L BUN (7-17) mg/dL Creatinine (0.52-1.04) mg/dL Glucose (74-99) mg/dL POC Glucose (mg/dL) 247 H 270 H 212 H (75-99) mg/dL 03/24/18 03/24/18 03/24/18 Range/Units 19:03 20:55 22:52 WBC (3.8-10.6) k/uL RBC (3.80-5.40) m/uL MCV (80.0-100.0) fL Neutrophils # (1.3-7.7) k/uL Lymphocytes # (1.0-4.8) k/uL PT (9.0-12.0) sec INR (<1.2) Potassium (3.5-5.1) mmol/L Chloride (98-107) mmol/L Carbon Dioxide (22-30) mmol/L BUN (7-17) mg/dL Creatinine (0.52-1.04) mg/dL Glucose (74-99) mg/dL POC Glucose (mg/dL) 180 H 205 H 212 H (75-99) mg/dL 03/25/18 03/25/18 03/25/18 Range/Units 00:55 02:57 04:53 WBC (3.8-10.6) k/uL RBC (3.80-5.40) m/uL MCV (80.0-100.0) fL Neutrophils # (1.3-7.7) k/uL Lymphocytes # (1.0-4.8) k/uL PT (9.0-12.0) sec INR (<1.2) Potassium (3.5-5.1) mmol/L Chloride (98-107) mmol/L Carbon Dioxide (22-30) mmol/L BUN (7-17) mg/dL Creatinine (0.52-1.04) mg/dL Glucose (74-99) mg/dL POC Glucose (mg/dL) 186 H 150 H 146 H (75-99) mg/dL 03/25/18 03/25/18 03/25/18 Range/Units 07:16 07:17 07:17 WBC 14.6 H (3.8-10.6) k/uL RBC 3.64 L (3.80-5.40) m/uL MCV 100.2 H (80.0-100.0) fL Neutrophils # 12.9 H (1.3-7.7) k/uL Lymphocytes # 0.8 L (1.0-4.8) k/uL PT (9.0-12.0) sec INR (<1.2) Potassium (3.5-5.1) mmol/L Chloride 93 L (98-107) mmol/L Carbon Dioxide 34 H (22-30) mmol/L BUN 80 H (7-17) mg/dL Creatinine 1.66 H (0.52-1.04) mg/dL Glucose 140 H (74-99) mg/dL POC Glucose (mg/dL) 149 H (75-99) mg/dL 03/25/18 Range/Units 07:17 WBC (3.8-10.6) k/uL RBC (3.80-5.40) m/uL MCV (80.0-100.0) fL Neutrophils # (1.3-7.7) k/uL Lymphocytes # (1.0-4.8) k/uL PT 20.5 H (9.0-12.0) sec INR 2.3 H (<1.2) Potassium (3.5-5.1) mmol/L Chloride (98-107) mmol/L Carbon Dioxide (22-30) mmol/L BUN (7-17) mg/dL Creatinine (0.52-1.04) mg/dL Glucose (74-99) mg/dL POC Glucose (mg/dL) (75-99) mg/dL Assessment and Plan Assessment: 1. Acute on chronic hypoxic history failure, multifactorial, secondary to acute exacerbation of COPD, suspect some component of pulmonary edema secondary to diastolic congestive heart failure, midlung atelectasis and possible mild pulmonary fibrosis, morbid obesity Chest x-ray completed showing mild pulmonary fibrosis. There is clearing of the linear infiltrate and atelectasis in the right midlung compared to last exam. No pulmonary consolidation. Patient started on Solu-Medrol 60 mg every 6 hours. Per pulmonary services patient has been started on 40 mg IV Lasix every 8 hours. Patient's IV Solu- Medrol switched to oral prednisone 2. Bilateral lower extremity cellulitis. Patient currently has Silvadene dressing and Myles wraps. Patient states she has home visiting nursing changing dressing weekly. Dr. Yap per infectious disease has been consulted. patient has been started on cefazolin per infectious disease 3. History of atrial fibrillation. Shing currently on Coumadin. Coumadin reordered. PT/INR has been ordered. INR 1.4. Patient received 1 dose of 5 mg Coumadin last night. Assess PT/INR today and adjust accordingly 4. chronic diastolic congestive heart failure. patient does wear home O2 5. History of deep vein thrombosis and pulmonary embolism. Patient is on Coumadin. 6. History of diabetes mellitus. Home medications resumed. steroid insulin sliding scale initiated. Patient started on insulin drip 7. History of GERD 8. History of hypertension 9. History of hyperlipidemia 10. History of chronic kidney disease stage IV.creatinine 1.69 and bun 71. this does appear to be baseline for patient 11. History of sleep apnea 12. History of hypothyroidism. continue Synthroid 13. decubitus ulcer coccyx present on admission. Apply dressing. Dr. Yap per infectious disease consulted DVT prophylaxis Coumadin. GI prophylaxis Protonix I performed an examination of the patient and discussed their management with the Nurse Practitioner. I have reviewed the Nurse Practitioner's notes and agree with the documented findings and plan of care Patient will most likely require ECF placement at [facility] on discharge physical therapy consulted
[2018-03-25] MEDS: FUROSEMIDE 10 MG/ML 4 ML VIAL IV SCH ×2 (09:28→16:56)
[2018-03-25] MEDS: PANTOPRAZOLE 40 MG TABLET PO SCH (09:29)
[2018-03-25] MEDS: POTASSIUM CHLORIDE ER 20 MEQ TAB.ER PO SCH (09:29)
[2018-03-25] MEDS: FERROUS SULFATE 325 MG TAB PO SCH ×2 (09:29→20:57)
[2018-03-25] MEDS: predniSONE 20 MG TAB PO SCH (09:29)
[2018-03-25] MEDS: ISOSORBIDE MONONITRATE ER 30 MG TAB.ER.24H PO SCH (09:29)
[2018-03-25 11:02] LABS: Glucose,Whole Blood 197 mg/dL (75-99)
--- NOTE | 2018-03-25 14:45 | P.PN ---
Subjective Progress Note Date: 03/25/18 Principal diagnosis: Acute on chronic hypoxic respiratory failure, multifactorial, secondary to an acute exacerbation of COPD, acute exacerbation of diastolic congestive heart failure, mild pulmonary fibrosis, morbid obesity with suspected obesity/ hypoventilation syndrome. This is a 77-year-old female with history of chronic hypoxic respiratory failure , known to have history of COPD, remote smoking history, patient is maintained on oxygen at 3 L nasal cannula. Known history of chronic atrial fibrillation, congestive heart failure, COPD, diabetes, deep vein thrombosis, hypertension, osteoarthritis, obstructive sleep apnea syndrome, and hypothyroidism. Normally sees Dr. Alonso as her primary care physician, patient was never seen by a medical claims specialist for her pulmonary status, however a year ago she presented with urinary tract infection and sepsis and back then she was seen by Dr. Patrick on consultation. Patient presented to the ER today with a few days' history of increased shortness of breath, cough, increased fluid retention, increased leg swelling, increased abdominal girth, and just not feeling well. Patient denies any fever, no chills, she describes the cough as productive with whitish phlegm, denies any hemoptysis, no chest pain. Patient had a chest x- ray done on this admission, the radiologist questioned mild pulmonary fibrosis, however I felt that the patient has increased interstitial markings, prominent pulmonary vasculature, some linear atelectasis in the right midlung, no clear- cut evidence of pneumonia or infiltrate. Patient was given diuretics, steroids , bronchodilators, and she is still on oxygen at 3 L nasal cannula. Minimal improvement since her admission. Patient is seen again today 03/23/2018 in follow-up on the surgical floor. She is awake and alert in no acute distress. She is breathing easier today as compared to yesterday. Maintaining good O2 saturations in the 90s on 2 L/m per nasal cannula. She's been afebrile. Hemodynamically stable. She remains on IV diuretics. She remains on bronchodilators, IV Solu-Medrol. Antibiotics in the form of cefazolin. On 03/24/2018 patient seen in follow-up on his 3 surgical floor. No acute distress, patient does become dyspneic with ambulation, she has been ambulating with a walker, and one person assistance. Denies any chest pain, she has no cough with production of guzman colored sputum. No fever, no chills. Hemodynamically stable, remains on 2 L per nasal cannula pulse ox 96%, lung sounds are positive for bibasilar crackles. Yesterday chest x-ray has been reviewed, hence showed stable course and interstitial and persistent bilateral hilar prominence. Patient is suspected to have underlying history of mild pulmonary fibrosis. Yesterday's labs showed elevation of the white count to 24.6, however patient remains afebrile, patient does have open draining cellulitis on bilateral lower extremities, ID service is following, and patient is currently on IV cefazolin and local wound care, he still complains of tenderness to touch in her lower extremities, both legs Myles wrapped. Still quite a bit of swelling in lower extremities. She will will continue on IV Lasix at 40 mg every 8 hours, she continues on IV Solu-Medrol, and she is requiring insulin drip for significantly elevated blood sugars, steroid-induced hyperglycemia. She is not bronchospastic on today's exam, no significant chest congestion. We will transition the IV steroids to oral prednisone. The patient is seen again today 03/25/2018 in follow-up on the surgical floor. She is currently sitting up in a chair at the bedside. She is awake and alert in no acute distress. She is maintaining good O2 saturations in the upper 90s on 2 L/m per nasal cannula. She's been afebrile. Hemodynamically stable. White count 14.6. Hemoglobin 12.3. INR 2.3. Creatinine 1.66. She remains on cefazolin for her cellulitis. Continues with IV diuretics. Objective - Vital Signs Vital signs: Vital Signs Temp 96.9 F L 03/25/18 09:28 Pulse 86 03/25/18 09:28 Resp 18 03/25/18 09:28 BP 141/65 03/25/18 09:28 Pulse Ox 98 03/25/18 09:28 Intake & Output 03/24/18 03/25/18 03/25/18 18:59 06:59 18:59 Intake Total 2113.069 578.132 126.884 Balance 2113.069 578.132 126.884 Weight 135.171 kg Intake: Intake, IV Titration 313.069 228.132 6.884 Amount Insulin Regular 100 unit 113.069 68.132 6.884 In Sodium Chloride 0.9% 100 ml @ Titrate IV .Q0M ANATOLY Rx#:[id number] Sodium Chloride 0.9% 1, 200 160 000 ml @ 20 mls/hr IV . Q24H ANATOLY Rx#:[id number] Oral 1800 350 120 Other: Voiding Method Bedside Commode Bedside Commode # Voids 2 1 - Exam GENERAL EXAM: Morbidly obese. Alert, active, comfortable in no apparent distress. HEAD: Normocephalic. EYES: Normal reaction of pupils, equal size. NOSE: Clear with pink turbinates. THROAT: Crowding of the posterior pharynx. No erythema or exudates. NECK: Short. No masses, no JVD. CHEST: No chest wall deformity. LUNGS: Equal air entry with eczema posterior bases, few scattered rhonchi, diminished. CVS: S1 and S2 normal with no audible murmur, irregular rhythm. ABDOMEN: No hepatosplenomegaly, normal bowel sounds, no guarding or rigidity. SPINE: No scoliosis or deformity SKIN: No rashes CENTRAL NERVOUS SYSTEM: No focal deficits, tone is normal in all 4 extremities. EXTREMITIES: There is 2-3+ by lateral lower extremity peripheral edema, changes of chronic venous stasis, Myles wraps in place. - Labs CBC & Chem 7: 03/25/18 07:17 03/25/18 07:17 Labs: Abnormal Lab Results - Last 24 Hours (Table) 03/24/18 03/24/18 03/24/18 Range/Units 15:08 17:10 19:03 WBC (3.8-10.6) k/uL RBC (3.80-5.40) m/uL MCV (80.0-100.0) fL Neutrophils # (1.3-7.7) k/uL Lymphocytes # (1.0-4.8) k/uL PT (9.0-12.0) sec INR (<1.2) Chloride (98-107) mmol/L Carbon Dioxide (22-30) mmol/L BUN (7-17) mg/dL Creatinine (0.52-1.04) mg/dL Glucose (74-99) mg/dL POC Glucose (mg/dL) 270 H 212 H 180 H (75-99) mg/dL 03/24/18 03/24/18 03/25/18 Range/Units 20:55 22:52 00:55 WBC (3.8-10.6) k/uL RBC (3.80-5.40) m/uL MCV (80.0-100.0) fL Neutrophils # (1.3-7.7) k/uL Lymphocytes # (1.0-4.8) k/uL PT (9.0-12.0) sec INR (<1.2) Chloride (98-107) mmol/L Carbon Dioxide (22-30) mmol/L BUN (7-17) mg/dL Creatinine (0.52-1.04) mg/dL Glucose (74-99) mg/dL POC Glucose (mg/dL) 205 H 212 H 186 H (75-99) mg/dL 03/25/18 03/25/18 03/25/18 Range/Units 02:57 04:53 07:16 WBC (3.8-10.6) k/uL RBC (3.80-5.40) m/uL MCV (80.0-100.0) fL Neutrophils # (1.3-7.7) k/uL Lymphocytes # (1.0-4.8) k/uL PT (9.0-12.0) sec INR (<1.2) Chloride (98-107) mmol/L Carbon Dioxide (22-30) mmol/L BUN (7-17) mg/dL Creatinine (0.52-1.04) mg/dL Glucose (74-99) mg/dL POC Glucose (mg/dL) 150 H 146 H 149 H (75-99) mg/dL 03/25/18 03/25/18 03/25/18 Range/Units 07:17 07:17 07:17 WBC 14.6 H (3.8-10.6) k/uL RBC 3.64 L (3.80-5.40) m/uL MCV 100.2 H (80.0-100.0) fL Neutrophils # 12.9 H (1.3-7.7) k/uL Lymphocytes # 0.8 L (1.0-4.8) k/uL PT 20.5 H (9.0-12.0) sec INR 2.3 H (<1.2) Chloride 93 L (98-107) mmol/L Carbon Dioxide 34 H (22-30) mmol/L BUN 80 H (7-17) mg/dL Creatinine 1.66 H (0.52-1.04) mg/dL Glucose 140 H (74-99) mg/dL POC Glucose (mg/dL) (75-99) mg/dL 03/25/18 Range/Units 11:00 WBC (3.8-10.6) k/uL RBC (3.80-5.40) m/uL MCV (80.0-100.0) fL Neutrophils # (1.3-7.7) k/uL Lymphocytes # (1.0-4.8) k/uL PT (9.0-12.0) sec INR (<1.2) Chloride (98-107) mmol/L Carbon Dioxide (22-30) mmol/L BUN (7-17) mg/dL Creatinine (0.52-1.04) mg/dL Glucose (74-99) mg/dL POC Glucose (mg/dL) 197 H (75-99) mg/dL Assessment and Plan Assessment: Impression: 1 acute on chronic hypoxic respiratory failure, multifactorial, secondary to acute exacerbation of COPD, suspect some component of pulmonary edema secondary to diastolic congestive heart failure, midlung atelectasis, and possible mild pulmonary fibrosis, morbid obesity 2 acute on chronic bilateral lower extremity cellulitis, infectious disease will be addressing. 3 chronic atrial fibrillation, presently on Coumadin. 4 chronic diastolic congestive heart failure, previous echocardiogram revealed preserved left ventricular systolic function 5 multiple comorbidities including morbid obesity, obesity/hypoventilation syndrome, chronic kidney disease stage IV, benign essential hypertension, hyperlipidemia, type 2 diabetes and history of deep vein thromboses and pulmonary embolism patient is still on Coumadin which is appropriate for now and no need for further workup for thromboembolic disease at this point. Recommendation: The patient was seen and evaluated by Dr. Mccoy. She is currently stable from the pulmonary standpoint. Continue with her current medications. She remains on IV diuretics. ID is on the case. We will continue to follow. I, the cosigning physician, performed a history & physical examination of the patient. Lungs sounds with crackles in bilateral bases, few scattered rhonchi, diminished. Maintaining good O2 saturations in the 90s on 2 L/m per nasal cannula. I discussed the assessment and plan of care with my nurse practitioner , Berkley Yost. I attest to the above note as dictated by her.
[2018-03-25] MEDS: ceFAZolin IN SWFI 2 GM/20 ML SYRINGE IVP SCH ×2 (15:30→16:56)
[2018-03-25] MEDS: GABAPENTIN 100 MG CAP PO SCH ×2 (15:30→20:57)
[2018-03-25 17:28] LABS: Glucose,Whole Blood 300 mg/dL (75-99)
[2018-03-25] MEDS ORDERED: WARFARIN 2 MG TAB PO ONE (18:00)
[2018-03-25] MEDS ORDERED: WARFARIN 2 MG TAB PO SCH (18:00)
--- NOTE | 2018-03-25 18:20 | PN ---
PROGRESS NOTE DATE OF SERVICE: 03/25/2018 REASON FOR FOLLOWUP: Bilateral leg cellulitis. INTERVAL HISTORY: The patient is complaining of some shortness of breath. She did have some cough. No chest pain. No abdominal pain or pain to the leg area. She has been mainly complaining of pain mostly in the right knee area and no diarrhea. PHYSICAL EXAMINATION: Blood pressure 141/65 with a pulse of 86, temperature 96.9. She is 98% on room air. General description is an elderly male up in the chair in no distress. RESPIRATORY SYSTEM: Unlabored breathing. Decreased intensity of breath sounds. No wheeze. HEART: S1, S2. Regular rate and rhythm. ABDOMEN: Soft. No tenderness. Legs have significant swelling, minimal redness. LABS: Hemoglobin 12.3, white count 14.6, BUN of 80, creatinine 1.66. DIAGNOSTIC IMPRESSION AND PLAN: Patient with bilateral lower extremity cellulitis in a patient who did have diffuse swelling and redness. Plan at this time is to continue with cefazolin and finish therapy with oral Keflex on discharge. Continue with supportive care. MMODL / IJN: [id number] /
[2018-03-25] MEDS: traMADol 50 MG TAB PO PRN (19:21)
[2018-03-25 20:19] LABS: Glucose,Whole Blood 312 mg/dL (75-99)
[2018-03-25] MEDS: INSULIN DETEMIR 100 UNIT/ML 10 ML VIAL SQ SCH (20:58)
[2018-03-25] MEDS: SODIUM CHLORIDE 0.9% 1,000 ML IV SCH (21:30)
[2018-03-26] MEDS: FUROSEMIDE 10 MG/ML 4 ML VIAL IV SCH ×3 (00:27→16:43)
[2018-03-26] MEDS: ceFAZolin IN SWFI 2 GM/20 ML SYRINGE IVP SCH ×3 (00:27→16:43)
[2018-03-26] MEDS: LEVOTHYROXINE 88 MCG TAB PO SCH (05:35)
[2018-03-26 07:23] LABS: Glucose,Whole Blood 220 mg/dL (75-99)
[2018-03-26 07:52] LABS: Basophils % (A) 0 %; Eosinophils % (A) 0 %; HGB 12.1 gm/dL (11.4-16.0); Hypochromasia Slight; Lymphocytes % (A) 9 %; MCH 32.3 pg (25.0-35.0); MCHC 31.8 g/dL (31.0-37.0); MCV 101.5 fL (80.0-100.0); Macrocytosis Slight; Mean Platelet Volume 7.7; Monocytes # (A) 0.6 k/uL (0-1.0); Monocytes % (A) 5 %; Neutrophils # (A) 9.2 k/uL (1.3-7.7); Neutrophils % (A) 84 %; Platelet Count 258 k/uL (150-450); RBC 3.75 m/uL (3.80-5.40); RDW 14.6 % (11.5-15.5); WBC 10.9 k/uL (3.8-10.6)
[2018-03-26] MEDS: FERROUS SULFATE 325 MG TAB PO SCH ×2 (07:52→21:15)
[2018-03-26] MEDS: POTASSIUM CHLORIDE ER 20 MEQ TAB.ER PO SCH (07:52)
[2018-03-26] MEDS: GABAPENTIN 100 MG CAP PO SCH ×2 (07:52→21:15)
[2018-03-26] MEDS: PANTOPRAZOLE 40 MG TABLET PO SCH (07:52)
[2018-03-26] MEDS: predniSONE 20 MG TAB PO SCH (07:52)
[2018-03-26] MEDS: INSULIN ASPART 100 UNIT/ML 1 ML 10 ML VIAL SQ SCH ×4 (07:52→21:16)
[2018-03-26] MEDS: ISOSORBIDE MONONITRATE ER 30 MG TAB.ER.24H PO SCH (07:53)
[2018-03-26 08:06] LABS: Albumin 3.6 g/dL (3.5-5.0); Calcium 8.8 mg/dL (8.4-10.2); Potassium 3.7 mmol/L (3.5-5.1); Total Bilirubin 0.3 mg/dL (0.2-1.3); Total Protein 6.4 g/dL (6.3-8.2)
[2018-03-26 08:07] LABS: INR 2.2 (<1.2)
[2018-03-26] MEDS: IPRATROPIUM-ALBUTEROL 3 ML NEB INHALATION SCH ×4 (08:42→19:48)
--- NOTE | 2018-03-26 11:37 | P.PN ---
Subjective Progress Note Date: 03/26/18 this is a 77-year-old female patient of Dr. Alonso. Patient presented to the emergency room with complaints of increased shortness of breath that started a few days ago. Patient does state she is oxygen dependent at home. Wearing mostly 2 L but has required 3 L over the past 2 days. patient has a past medical history of atrial fibrillation, heart failure, COPD, diabetes mellitus, DVT thrombosis, GERD, hyperlipidemia, hypertension, osteoarthritis, renal disease, rheumatoid arthritis, sleep apnea and thyroid disorder. Patient's cannot recall seeing a equal opportunity director outpatient. Patient has seen Dr. Peters in the past during inpatient. Dr. Wen per pulmonary has been consulted. chest x-ray completed showing mild pulmonary fibrosis. There is complaining of the linear infiltrate and atelectasis in the right midlung compared to last exam. No pulmonary consolidation. EKG completed showing sinus rhythm with first-degree AV block. Left anterior vascular block. patient also has bilateral cellulitis on lower extremities. Patient states she has visiting nursing changing dressing weekly. Patient has seen Dr. Yap per infectious disease in the past. Patient also has open sore on backside. Dr. Yap per infectious disease has been consulted. Patient has been started on Solu-Medrol 60 mg every 6 hours. at this time patient denies chest pain. Patient is still complaining of shortness of breath. Patient denies nausea vomiting or diarrhea. she does states she's been having some burning with urination. Urinalysis has been ordered. On 03/23/2018 patient is alert and orientated to 3 resting comfortably in chair. Patient does state breathing is slightly improved. At this time patient denies chest pain. Patient denies nausea vomiting or diarrhea. Patient has been started on insulin drip due to elevated blood sugars. On 03/24/2018 patient is alert and oriented 3. Patient currently sitting in chair. Patient remained short of breath post activity. Patient currently on 2 L. Patient remains on insulin drip to due elevated blood sugars. Patient currently also on IV Lasix 40 mg every 8 hours. IV steroids have been transitioned to oral steroids per pulmonary. At this time patient denies chest pain. Patient denies any urinary burning or frequency. Patient denies nausea vomiting diarrhea. On 03/25/2018 patient is alert and oriented 3. Patient is currently resting comfortably in chair. Patient states improvement with shortness of breath. Patient denies chest pain patient denies nausea vomiting or diarrhea. Patient denies any urinary burning or frequency 03/26/2018 patient still having some shortness of breath with activity. She is seeing improvement in her breathing since being admitted to the hospital. Lower extremities are Myles wrap with still some cellulitis and swelling. Denies any chest pain. She denies any nausea or vomiting reports having bowel movements. Denies any difficulty urinating. Objective - Vital Signs Vital signs: Vital Signs Temp 97.8 F 03/26/18 07:35 Pulse 85 03/26/18 11:21 Resp 16 03/26/18 07:35 BP 176/77 03/26/18 07:35 Pulse Ox 99 03/26/18 07:35 Intake & Output 03/25/18 03/26/18 03/26/18 18:59 06:59 18:59 Intake Total 528.884 680 Balance 528.884 680 Weight 133.674 kg Intake: Intake, IV Titration 6.884 200 Amount Insulin Regular 100 unit 6.884 In Sodium Chloride 0.9% 100 ml @ Titrate IV .Q0M ANAT[facility] Rx#:[id number] Sodium Chloride 0.9% 1, 200 000 ml @ 20 mls/hr IV . Q24H ANATOLY Rx#:[id number] Oral 522 480 Other: Voiding Method Bedside Commode # Voids 1 2 # Bowel Movements 1 - Exam Head normocephalic Neck supple Lungs clear to auscultation bilaterally no wheezing or crackles Heart regular rate and rhythm S1-S2, no rub or gallop Abdomen is soft nontender nondistended positive bowel sounds no hepatosplenomegaly Extremities +2 bilateral lower extremity edema. Bilateral lower extremity redness Neuro alert and orientated to 3 - Labs CBC & Chem 7: 03/26/18 06:46 03/26/18 06:46 Labs: Abnormal Lab Results - Last 24 Hours (Table) 03/25/18 03/25/18 03/26/18 Range/Units 17:27 20:17 06:46 WBC 10.9 H (3.8-10.6) k/uL RBC 3.75 L (3.80-5.40) m/uL MCV 101.5 H (80.0-100.0) fL Neutrophils # 9.2 H (1.3-7.7) k/uL PT (9.0-12.0) sec INR (<1.2) Chloride (98-107) mmol/L Carbon Dioxide (22-30) mmol/L BUN (7-17) mg/dL Creatinine (0.52-1.04) mg/dL Glucose (74-99) mg/dL POC Glucose (mg/dL) 300 H 312 H (75-99) mg/dL 03/26/18 03/26/18 03/26/18 Range/Units 06:46 06:46 07:20 WBC (3.8-10.6) k/uL RBC (3.80-5.40) m/uL MCV (80.0-100.0) fL Neutrophils # (1.3-7.7) k/uL PT 20.0 H (9.0-12.0) sec INR 2.2 H (<1.2) Chloride 92 L (98-107) mmol/L Carbon Dioxide 35 H (22-30) mmol/L BUN 79 H (7-17) mg/dL Creatinine 1.66 H (0.52-1.04) mg/dL Glucose 211 H (74-99) mg/dL POC Glucose (mg/dL) 220 H (75-99) mg/dL Assessment and Plan Assessment: 1. Acute on chronic hypoxic history failure, multifactorial, secondary to acute exacerbation of COPD, suspect some component of pulmonary edema secondary to diastolic congestive heart failure, midlung atelectasis and possible mild pulmonary fibrosis, morbid obesity Chest x-ray completed showing mild pulmonary fibrosis. There is clearing of the linear infiltrate and atelectasis in the right midlung compared to last exam. No pulmonary consolidation. Patient started on Solu-Medrol 60 mg every 6 hours. Patient is been switched over to oral prednisone yesterday. She remains on IV Lasix. 2. Bilateral lower extremity cellulitis. Patient currently has Silvadene dressing and Myles wraps. Patient states she has home visiting nursing changing dressing weekly. Dr. Yap per infectious disease has been consulted. patient has been started on cefazolin per infectious disease 3. History of paroxysmal atrial fibrillation. Anticoagulated with Coumadin. Pharmacy dosing Coumadin 4. Acute on chronic chronic diastolic congestive heart failure exacerbation. Currently on IV Lasix 5. History of deep vein thrombosis and pulmonary embolism. Patient is on Coumadin. 6. History of diabetes mellitus. Off of insulin drip. Continue Levemir and NovoLog. Expect improvement in blood sugars since she's been switched over to prednisone 7. History of GERD 8. History of hypertension 9. History of hyperlipidemia 10. History of chronic kidney disease stage IV.creatinine 1.69 and bun 71. this does appear to be baseline for patient 11. History of sleep apnea 12. History of hypothyroidism. continue Synthroid 13. decubitus ulcer coccyx present on admission. Apply dressing. Dr. Yap per infectious disease consulted DVT prophylaxis Coumadin. GI prophylaxis Protonix Patient unable to afford ECF. At time of discharge she'll be discharged home with home care Encouraged patient to increase activity. Continue with physical therapy. I performed an examination of the patient and discussed their management with the physician Yard Stocker. I have reviewed the Physician Yard Stocker's notes and agree with the documented findings and plan of care
[2018-03-26 12:11] LABS: Glucose,Whole Blood 251 mg/dL (75-99)
--- NOTE | 2018-03-26 12:50 | P.PN ---
Subjective Progress Note Date: 03/26/18 Principal diagnosis: Acute on chronic hypoxic respiratory failure, multifactorial, secondary to an acute exacerbation of COPD, acute exacerbation of diastolic congestive heart failure, mild pulmonary fibrosis, morbid obesity with suspected obesity/ hypoventilation syndrome. This is a 77-year-old female with history of chronic hypoxic respiratory failure , known to have history of COPD, remote smoking history, patient is maintained on oxygen at 3 L nasal cannula. Known history of chronic atrial fibrillation, congestive heart failure, COPD, diabetes, deep vein thrombosis, hypertension, osteoarthritis, obstructive sleep apnea syndrome, and hypothyroidism. Normally sees Dr. Alonso as her primary care physician, patient was never seen by a entry specialists for her pulmonary status, however a year ago she presented with urinary tract infection and sepsis and back then she was seen by Dr. Patrick on consultation. Patient presented to the ER today with a few days' history of increased shortness of breath, cough, increased fluid retention, increased leg swelling, increased abdominal girth, and just not feeling well. Patient denies any fever, no chills, she describes the cough as productive with whitish phlegm, denies any hemoptysis, no chest pain. Patient had a chest x- ray done on this admission, the radiologist questioned mild pulmonary fibrosis, however I felt that the patient has increased interstitial markings, prominent pulmonary vasculature, some linear atelectasis in the right midlung, no clear- cut evidence of pneumonia or infiltrate. Patient was given diuretics, steroids , bronchodilators, and she is still on oxygen at 3 L nasal cannula. Minimal improvement since her admission. Patient is seen again today 03/23/2018 in follow-up on the surgical floor. She is awake and alert in no acute distress. She is breathing easier today as compared to yesterday. Maintaining good O2 saturations in the 90s on 2 L/m per nasal cannula. She's been afebrile. Hemodynamically stable. She remains on IV diuretics. She remains on bronchodilators, IV Solu-Medrol. Antibiotics in the form of cefazolin. On 03/24/2018 patient seen in follow-up on his 3 surgical floor. No acute distress, patient does become dyspneic with ambulation, she has been ambulating with a walker, and one person assistance. Denies any chest pain, she has no cough with production of guzman colored sputum. No fever, no chills. Hemodynamically stable, remains on 2 L per nasal cannula pulse ox 96%, lung sounds are positive for bibasilar crackles. Yesterday chest x-ray has been reviewed, hence showed stable course and interstitial and persistent bilateral hilar prominence. Patient is suspected to have underlying history of mild pulmonary fibrosis. Yesterday's labs showed elevation of the white count to 24.6, however patient remains afebrile, patient does have open draining cellulitis on bilateral lower extremities, ID service is following, and patient is currently on IV cefazolin and local wound care, he still complains of tenderness to touch in her lower extremities, both legs Myles wrapped. Still quite a bit of swelling in lower extremities. She will will continue on IV Lasix at 40 mg every 8 hours, she continues on IV Solu-Medrol, and she is requiring insulin drip for significantly elevated blood sugars, steroid-induced hyperglycemia. She is not bronchospastic on today's exam, no significant chest congestion. We will transition the IV steroids to oral prednisone. The patient is seen again today 03/25/2018 in follow-up on the surgical floor. She is currently sitting up in a chair at the bedside. She is awake and alert in no acute distress. She is maintaining good O2 saturations in the upper 90s on 2 L/m per nasal cannula. She's been afebrile. Hemodynamically stable. White count 14.6. Hemoglobin 12.3. INR 2.3. Creatinine 1.66. She remains on cefazolin for her cellulitis. Continues with IV diuretics. The patient is seen again today 03/26/2018 in follow-upon the surgical floor. She is awake and alert in no acute distress. Currently sitting up in chair at the bedside. She's been up ambulating with assistance. No worsening shortness of breath, cough or congestion. Maintaining good O2 saturations in the 90s on 2 L/m per nasal cannula. white count 10.9. Hemoglobin 12.1. INR 2.2. Creatinine 1.66. She remains on bronchodilators. Prednisone taper. Encouraged to work with the incentive spirometer. She is continued on cefazolin. She remains on IV diuretics. Down 2 kg today. Objective - Vital Signs Vital signs: Vital Signs Temp 97.8 F 03/26/18 07:35 Pulse 85 03/26/18 11:21 Resp 16 03/26/18 07:35 BP 176/77 03/26/18 07:35 Pulse Ox 99 03/26/18 07:35 Intake & Output 03/25/18 03/26/18 03/26/18 18:59 06:59 18:59 Intake Total 528.884 680 Balance 528.884 680 Weight 133.674 kg Intake: Intake, IV Titration 6.884 200 Amount Insulin Regular 100 unit 6.884 In Sodium Chloride 0.9% 100 ml @ Titrate IV .Q0M [facility] Rx#:[id number] Sodium Chloride 0.9% 1, 200 000 ml @ 20 mls/hr IV . Q24H [facility] Rx#:[id number] Oral 522 480 Other: Voiding Method Bedside Commode # Voids 1 2 # Bowel Movements 1 - Exam GENERAL EXAM: Morbidly obese. Alert, active, comfortable in no apparent distress. HEAD: Normocephalic. EYES: Normal reaction of pupils, equal size. NOSE: Clear with pink turbinates. THROAT: Crowding of the posterior pharynx. No erythema or exudates. NECK: Short. No masses, no JVD. CHEST: No chest wall deformity. LUNGS: Equal air entry with eczema posterior bases, few scattered rhonchi, diminished. CVS: S1 and S2 normal with no audible murmur, irregular rhythm. ABDOMEN: No hepatosplenomegaly, normal bowel sounds, no guarding or rigidity. SPINE: No scoliosis or deformity SKIN: No rashes CENTRAL NERVOUS SYSTEM: No focal deficits, tone is normal in all 4 extremities. EXTREMITIES: There is 2-3+ by lateral lower extremity peripheral edema, changes of chronic venous stasis, Myles wraps in place. - Labs CBC & Chem 7: 03/26/18 06:46 03/26/18 06:46 Labs: Abnormal Lab Results - Last 24 Hours (Table) 03/25/18 03/25/18 03/26/18 Range/Units 17:27 20:17 06:46 WBC 10.9 H (3.8-10.6) k/uL RBC 3.75 L (3.80-5.40) m/uL MCV 101.5 H (80.0-100.0) fL Neutrophils # 9.2 H (1.3-7.7) k/uL PT (9.0-12.0) sec INR (<1.2) Chloride (98-107) mmol/L Carbon Dioxide (22-30) mmol/L BUN (7-17) mg/dL Creatinine (0.52-1.04) mg/dL Glucose (74-99) mg/dL POC Glucose (mg/dL) 300 H 312 H (75-99) mg/dL 03/26/18 03/26/18 03/26/18 Range/Units 06:46 06:46 07:20 WBC (3.8-10.6) k/uL RBC (3.80-5.40) m/uL MCV (80.0-100.0) fL Neutrophils # (1.3-7.7) k/uL PT 20.0 H (9.0-12.0) sec INR 2.2 H (<1.2) Chloride 92 L (98-107) mmol/L Carbon Dioxide 35 H (22-30) mmol/L BUN 79 H (7-17) mg/dL Creatinine 1.66 H (0.52-1.04) mg/dL Glucose 211 H (74-99) mg/dL POC Glucose (mg/dL) 220 H (75-99) mg/dL 03/26/18 Range/Units 12:09 WBC (3.8-10.6) k/uL RBC (3.80-5.40) m/uL MCV (80.0-100.0) fL Neutrophils # (1.3-7.7) k/uL PT (9.0-12.0) sec INR (<1.2) Chloride (98-107) mmol/L Carbon Dioxide (22-30) mmol/L BUN (7-17) mg/dL Creatinine (0.52-1.04) mg/dL Glucose (74-99) mg/dL POC Glucose (mg/dL) 251 H (75-99) mg/dL Assessment and Plan Assessment: Impression: 1 acute on chronic hypoxic respiratory failure, multifactorial, secondary to acute exacerbation of COPD, suspect some component of pulmonary edema secondary to diastolic congestive heart failure, midlung atelectasis, and possible mild pulmonary fibrosis, morbid obesity 2 acute on chronic bilateral lower extremity cellulitis, infectious disease will be addressing. 3 chronic atrial fibrillation, presently on Coumadin. 4 chronic diastolic congestive heart failure, previous echocardiogram revealed preserved left ventricular systolic function 5 multiple comorbidities including morbid obesity, obesity/hypoventilation syndrome, chronic kidney disease stage IV, benign essential hypertension, hyperlipidemia, type 2 diabetes and history of deep vein thromboses and pulmonary embolism patient is still on Coumadin which is appropriate for now and no need for further workup for thromboembolic disease at this point. Recommendation: The patient was seen and evaluated by Dr. Mccoy. She is encouraged regarding the use the incentive spirometer and cough and deep breathing exercises. Continue with her current medications. She remains on IV diuretics. We will continue to follow. I, the cosigning physician, performed a history & physical examination of the patient. Lungs sounds with crackles in bilateral bases, few scattered rhonchi, diminished. Maintaining good O2 saturations in the 90s on 2 L/m per nasal cannula. I discussed the assessment and plan of care with my nurse practitioner , Berkley Yost. I attest to the above note as dictated by her.
[2018-03-26 17:16] LABS: Glucose,Whole Blood 278 mg/dL (75-99)
[2018-03-26] MEDS: traMADol 50 MG TAB PO PRN (17:47)
[2018-03-26] MEDS ORDERED: WARFARIN 5 MG TAB PO ONE (18:00)
[2018-03-26 20:29] LABS: Glucose,Whole Blood 335 mg/dL (75-99)
[2018-03-26] MEDS: INSULIN DETEMIR 100 UNIT/ML 10 ML VIAL SQ SCH (21:15)
[2018-03-26] MEDS: SODIUM CHLORIDE 0.9% 1,000 ML IV SCH ×2 (21:17→21:33)
--- NOTE | 2018-03-27 00:15 | PN ---
PROGRESS NOTE DATE OF SERVICE: 03/26/2018. REASON FOR FOLLOWUP: Bilateral lower extremity cellulitis. INTERVAL HISTORY: The patient is currently afebrile, still complains of some shortness of breath. He did have a cough. No chest pain. No abdominal pain or pain in the leg area. EXAMINATION: Blood pressure 129/68 with a pulse of 79, temperature 97.6. She is 96% on 2 L nasal cannula. GENERAL DESCRIPTION: An elderly female, up in the chair in no distress. RESPIRATORY SYSTEM: Unlabored breathing with decreased breath sounds in the base. No wheeze. HEART: S1 and S2 regular. ABDOMEN: Soft, no tenderness. EXTREMITIES: Legs did have some swelling but the redness has decreased in intensity. No blister formation. LABS: Hemoglobin is 12.1, white count 10.9 with a BUN of 79, creatinine 1.6. DIAGNOSTIC IMPRESSION AND PLAN: Patient with bilateral lower extremity cellulitis. The patient did have evidence of fluid overload with diffuse cellulitis likely streptococcal disease, currently covered with the Cefazolin. Continue to finish therapy with oral antibiotic. Continue with ____ to keep the swelling down. Continue supportive care. MMODL / IJN: [id number] /
[2018-03-27] MEDS: ceFAZolin IN SWFI 2 GM/20 ML SYRINGE IVP SCH ×3 (00:25→16:20)
[2018-03-27] MEDS: FUROSEMIDE 10 MG/ML 4 ML VIAL IV SCH (00:26)
[2018-03-27] MEDS: LEVOTHYROXINE 88 MCG TAB PO SCH (05:37)
--- NOTE | 2018-03-27 06:49 | P.PN ---
Subjective Progress Note Date: 03/27/18 Principal diagnosis: COPD exacerbation Progress note dated 03/27/2018 77-year-old female with a history of acute on chronic hypoxemic respiratory failure secondary to both COPD exacerbation as well as diastolic congestive heart failure. In addition, the patient has mild pulmonary fibrosis morbid obesity with restrictive lung disease and some atelectasis. This morning, the patient feels improved. She sitting up in a chair sleeping. She states her breathing has improved. In addition to the above, the patient has a history of lower extremities cellulitis, chronic atrial fibrillation, diastolic CHF, morbid obesity, pickwickian syndrome, chronic kidney disease, benign essential hypertension, hyperlipidemia, type 2 diabetes, history of DVT/pulmonary embolism , and other medical problems. The patient denies any significant cough. No phlegm production. No fever or chills. There is no chest pain or chest discomfort. Objective - Vital Signs Vital signs: Vital Signs Temp 97.6 F 03/27/18 04:56 Pulse 74 03/27/18 00:10 Resp 17 03/27/18 00:10 BP 114/72 03/27/18 00:10 Pulse Ox 97 03/27/18 00:10 Intake & Output 03/26/18 03/26/18 03/27/18 06:59 18:59 06:59 Intake Total 680 Output Total 600 Balance 680 -600 Weight 133.674 kg 132 kg Intake: Intake, IV Titration 200 Amount Sodium Chloride 0.9% 1, 200 000 ml @ 20 mls/hr IV . Q24H [facility] Rx#:[id number] Oral 480 Output: Urine 600 Other: Voiding Method Bedside Commode Bedside Commode # Voids 2 1 - Exam No acute distress, oriented 3. HEENT examination is grossly unremarkable. Mucous membranes are moist. No oral lesions. Neck supple. Full range of motion. No adenopathy thyromegaly or neck vein distention. Cardiovascular examination reveals irregular rhythm and rate. S1-S2 normal. No S3 or S4. No discernible murmur noted. Lungs reveal diminished breath sounds throughout. There are a few scattered rhonchi. No wheezes or crackles. Breath sounds are diminished throughout. Abdomen soft bowel sounds are heard. No masses or tenderness. Extremities reveal chronic venous stasis and hyperpigmentation. Myles wraps noted. Lower extremity edema with pitting is appreciated. Skin is without rash or lesion. Neurologic examination is brief but nonfocal. - Labs CBC & Chem 7: 03/26/18 06:46 03/26/18 06:46 Labs: Abnormal Lab Results - Last 24 Hours (Table) 03/26/18 03/26/18 03/26/18 Range/Units 06:46 06:46 06:46 WBC 10.9 H (3.8-10.6) k/uL RBC 3.75 L (3.80-5.40) m/uL MCV 101.5 H (80.0-100.0) fL Neutrophils # 9.2 H (1.3-7.7) k/uL PT 20.0 H (9.0-12.0) sec INR 2.2 H (<1.2) Chloride 92 L (98-107) mmol/L Carbon Dioxide 35 H (22-30) mmol/L BUN 79 H (7-17) mg/dL Creatinine 1.66 H (0.52-1.04) mg/dL Glucose 211 H (74-99) mg/dL POC Glucose (mg/dL) (75-99) mg/dL 03/26/18 03/26/18 03/26/18 Range/Units 07:20 12:09 17:12 WBC (3.8-10.6) k/uL RBC (3.80-5.40) m/uL MCV (80.0-100.0) fL Neutrophils # (1.3-7.7) k/uL PT (9.0-12.0) sec INR (<1.2) Chloride (98-107) mmol/L Carbon Dioxide (22-30) mmol/L BUN (7-17) mg/dL Creatinine (0.52-1.04) mg/dL Glucose (74-99) mg/dL POC Glucose (mg/dL) 220 H 251 H 278 H (75-99) mg/dL 03/26/18 Range/Units 20:27 WBC (3.8-10.6) k/uL RBC (3.80-5.40) m/uL MCV (80.0-100.0) fL Neutrophils # (1.3-7.7) k/uL PT (9.0-12.0) sec INR (<1.2) Chloride (98-107) mmol/L Carbon Dioxide (22-30) mmol/L BUN (7-17) mg/dL Creatinine (0.52-1.04) mg/dL Glucose (74-99) mg/dL POC Glucose (mg/dL) 335 H (75-99) mg/dL Assessment and Plan Assessment: Assessment Acute on chronic hypoxemic respiratory failure, multifactorial, in part related to underlying COPD exacerbation, mild pulmonary edema secondary to diastolic CHF , atelectasis, pulmonary fibrosis and restrictive lung disease secondary to morbid obesity Chronic lower extremity edema with cellulitis Chronic atrial fibrillation Diastolic CHF Morbid obesity/pickwickian syndrome/restrictive lung disease Chronic kidney disease Benign essential hypertension Hyperlipidemia Type 2 diabetes DVT/pulmonary embolism. Plan: Plan dated 03/27/2018 Overall, the patient does not look badly. The patient sitting up in a chair. She states her breathing has improved. She states that she's not having any any cough. No phlegm production. No fever chills chest pain chest discomfort nausea vomiting or diarrhea. She is hoping to be discharged home in the near future. Additional recommendations and suggestions are forthcoming. White count 10.9, hemoglobin 12.1, and platelet count normal. PT INR is therapeutic. Sodium and potassium are normal. Chloride 92, with a carbon dioxide of 35. BUN and creatinine were 79 and 1[address] is not particularly impressive. Medications are reviewed. Time with Patient: Less than 30
[2018-03-27 07:03] LABS: Glucose,Whole Blood 148 mg/dL (75-99)
[2018-03-27 07:25] LABS: INR 2.8 (<1.2)
[2018-03-27 07:53] LABS: Albumin 3.4 g/dL (3.5-5.0); Calcium 8.9 mg/dL (8.4-10.2); Potassium 3.5 mmol/L (3.5-5.1); Total Bilirubin 0.3 mg/dL (0.2-1.3); Total Protein 6.1 g/dL (6.3-8.2)
[2018-03-27 08:01] LABS: Basophils % (A) 0 %; Eosinophils # (A) 0.1 k/uL (0-0.7); Eosinophils % (A) 0 %; HCT 37.7 % (34.0-46.0); HGB 12.1 gm/dL (11.4-16.0); Lymphocytes # (A) 1.5 k/uL (1.0-4.8); Lymphocytes % (A) 12 %; MCHC 32.1 g/dL (31.0-37.0); MCV 99.8 fL (80.0-100.0); Macrocytosis Slight; Mean Platelet Volume 7.5; Monocytes # (A) 0.6 k/uL (0-1.0); Monocytes % (A) 6 %; Neutrophils # (A) 9.3 k/uL (1.3-7.7); Neutrophils % (A) 80 %; Platelet Count 242 k/uL (150-450); RBC 3.78 m/uL (3.80-5.40); RDW 14.8 % (11.5-15.5); WBC 11.7 k/uL (3.8-10.6)
[2018-03-27] MEDS: INSULIN ASPART 100 UNIT/ML 1 ML 10 ML VIAL SQ SCH ×4 (08:19→21:04)
[2018-03-27] MEDS: PANTOPRAZOLE 40 MG TABLET PO SCH (08:20)
[2018-03-27] MEDS: IPRATROPIUM-ALBUTEROL 3 ML NEB INHALATION SCH ×4 (08:28→21:02)
[2018-03-27] MEDS: FERROUS SULFATE 325 MG TAB PO SCH ×2 (09:31→21:03)
[2018-03-27] MEDS: GABAPENTIN 100 MG CAP PO SCH ×2 (09:31→21:03)
[2018-03-27] MEDS: FUROSEMIDE 40 MG TAB PO SCH ×3 (09:31→21:03)
[2018-03-27] MEDS: POTASSIUM CHLORIDE ER 20 MEQ TAB.ER PO SCH (09:31)
[2018-03-27] MEDS: predniSONE 20 MG TAB PO SCH (09:32)
[2018-03-27] MEDS: ISOSORBIDE MONONITRATE ER 30 MG TAB.ER.24H PO SCH (09:32)
[2018-03-27] MEDS: traMADol 50 MG TAB PO PRN (09:35)
[2018-03-27 11:53] LABS: Glucose,Whole Blood 199 mg/dL (75-99)
--- NOTE | 2018-03-27 15:28 | P.PN ---
Subjective Progress Note Date: 03/27/18 this is a 77-year-old female patient of Dr. Alonso. Patient presented to the emergency room with complaints of increased shortness of breath that started a few days ago. Patient does state she is oxygen dependent at home. Wearing mostly 2 L but has required 3 L over the past 2 days. patient has a past medical history of atrial fibrillation, heart failure, COPD, diabetes mellitus, DVT thrombosis, GERD, hyperlipidemia, hypertension, osteoarthritis, renal disease, rheumatoid arthritis, sleep apnea and thyroid disorder. 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 Patient has seen Dr. Peters in the past during inpatient. Dr. Wen per pulmonary has been consulted. chest x-ray completed showing mild pulmonary fibrosis. There is complaining of the linear infiltrate and atelectasis in the right midlung compared to last exam. No pulmonary consolidation. EKG completed showing sinus rhythm with first-degree AV block. Left anterior vascular block. patient also has bilateral cellulitis on lower extremities. Patient states she has visiting nursing changing dressing weekly. Patient has seen Dr. Yap per infectious disease in the past. Patient also has open sore on backside. Dr. Yap per infectious disease has been consulted. Patient has been started on Solu-Medrol 60 mg every 6 hours. at this time patient denies chest pain. Patient is still complaining of shortness of breath. Patient denies nausea vomiting or diarrhea. she does states she's been having some burning with urination. Urinalysis has been ordered. On 03/23/2018 patient is alert and orientated to 3 resting comfortably in chair. Patient does state breathing is slightly improved. At this time patient denies chest pain. Patient denies nausea vomiting or diarrhea. Patient has been started on insulin drip due to elevated blood sugars. On 03/24/2018 patient is alert and oriented 3. Patient currently sitting in chair. Patient remained short of breath post activity. Patient currently on 2 L. Patient remains on insulin drip to due elevated blood sugars. Patient currently also on IV Lasix 40 mg every 8 hours. IV steroids have been transitioned to oral steroids per pulmonary. At this time patient denies chest pain. Patient denies any urinary burning or frequency. Patient denies nausea vomiting diarrhea. On 03/25/2018 patient is alert and oriented 3. Patient is currently resting comfortably in chair. Patient states improvement with shortness of breath. Patient denies chest pain patient denies nausea vomiting or diarrhea. Patient denies any urinary burning or frequency 03/26/2018 patient still having some shortness of breath with activity. She is seeing improvement in her breathing since being admitted to the hospital. Lower extremities are Myles wrap with still some cellulitis and swelling. Denies any chest pain. She denies any nausea or vomiting reports having bowel movements. Denies any difficulty urinating. On 03/27/2018 patient is alert and oriented 3 in no apparent distress he is complaining of shortness of breath with activity is also complaining of cough. Otherwise she denies any complaints. There is no fever or chills no chest pain no headache or dizziness nausea or vomiting no abdominal pain no diarrhea or constipation and no urinary symptoms Objective - Vital Signs Vital signs: Vital Signs Temp 97.8 F 03/27/18 08:19 Pulse 84 03/27/18 11:53 Resp 16 03/27/18 08:19 BP 109/69 03/27/18 08:19 Pulse Ox 98 03/27/18 08:19 Intake & Output 03/26/18 03/27/18 03/27/18 18:59 06:59 18:59 Output Total 600 Balance -600 Weight 132 kg Output: Urine 600 Other: Voiding Method Bedside Commode # Voids 1 - Exam Head normocephalic Neck supple Lungs clear to auscultation bilaterally no wheezing or crackles Heart regular rate and rhythm S1-S2, no rub or gallop Abdomen is soft nontender nondistended positive bowel sounds no hepatosplenomegaly Extremities +2 bilateral lower extremity edema. Bilateral lower extremity redness Neuro alert and orientated to 3 - Labs CBC & Chem 7: 03/27/18 07:02 03/27/18 07:02 Labs: Abnormal Lab Results - Last 24 Hours (Table) 03/26/18 03/26/18 03/27/18 Range/Units 17:12 20:27 07:01 WBC (3.8-10.6) k/uL RBC (3.80-5.40) m/uL Neutrophils # (1.3-7.7) k/uL PT (9.0-12.0) sec INR (<1.2) Chloride (98-107) mmol/L Carbon Dioxide (22-30) mmol/L BUN (7-17) mg/dL Creatinine (0.52-1.04) mg/dL Glucose (74-99) mg/dL POC Glucose (mg/dL) 278 H 335 H 148 H (75-99) mg/dL Total Protein (6.3-8.2) g/dL Albumin (3.5-5.0) g/dL 03/27/18 03/27/18 03/27/18 Range/Units 07:02 07:02 07:02 WBC 11.7 H (3.8-10.6) k/uL RBC 3.78 L (3.80-5.40) m/uL Neutrophils # 9.3 H (1.3-7.7) k/uL PT 25.0 H (9.0-12.0) sec INR 2.8 H (<1.2) Chloride 94 L (98-107) mmol/L Carbon Dioxide 36 H (22-30) mmol/L BUN 74 H (7-17) mg/dL Creatinine 1.50 H (0.52-1.04) mg/dL Glucose 140 H (74-99) mg/dL POC Glucose (mg/dL) (75-99) mg/dL Total Protein 6.1 L (6.3-8.2) g/dL Albumin 3.4 L (3.5-5.0) g/dL 03/27/18 Range/Units 11:50 WBC (3.8-10.6) k/uL RBC (3.80-5.40) m/uL Neutrophils # (1.3-7.7) k/uL PT (9.0-12.0) sec INR (<1.2) Chloride (98-107) mmol/L Carbon Dioxide (22-30) mmol/L BUN (7-17) mg/dL Creatinine (0.52-1.04) mg/dL Glucose (74-99) mg/dL POC Glucose (mg/dL) 199 H (75-99) mg/dL Total Protein (6.3-8.2) g/dL Albumin (3.5-5.0) g/dL Assessment and Plan Plan: 1. Acute on chronic hypoxic history failure, multifactorial, secondary to acute exacerbation of COPD, suspect some component of pulmonary edema secondary to diastolic congestive heart failure, midlung atelectasis and possible mild pulmonary fibrosis, morbid obesity Chest x-ray completed showing mild pulmonary fibrosis. There is clearing of the linear infiltrate and atelectasis in the right midlung compared to last exam. No pulmonary consolidation. Patient started on Solu-Medrol 60 mg every 6 hours. Patient is been switched over to oral prednisone yesterday. She remains on IV Lasix. 2. Bilateral lower extremity cellulitis. Patient currently has Silvadene dressing and Myles wraps. Patient states she has home visiting nursing changing dressing weekly. Dr. Yap per infectious disease has been consulted. patient has been started on cefazolin per infectious disease 3. History of paroxysmal atrial fibrillation. Anticoagulated with Coumadin. Pharmacy dosing Coumadin 4. Acute on chronic chronic diastolic congestive heart failure exacerbation. Currently on IV Lasix 5. History of deep vein thrombosis and pulmonary embolism. Patient is on Coumadin. 6. History of diabetes mellitus. Off of insulin drip. Continue Levemir and NovoLog. Expect improvement in blood sugars since she's been switched over to prednisone 7. History of GERD 8. History of hypertension 9. History of hyperlipidemia 10. History of chronic kidney disease stage IV.creatinine 1.69 and bun 71. this does appear to be baseline for patient 11. History of sleep apnea 12. History of hypothyroidism. continue Synthroid 13. decubitus ulcer coccyx present on admission. Apply dressing. Dr. Yap per infectious disease consulted DVT prophylaxis Coumadin. GI prophylaxis Protonix Patient unable to afford ECF. At time of discharge she'll be discharged home with home care Encouraged patient to increase activity. Continue with physical therapy.
[2018-03-27 17:17] LABS: Glucose,Whole Blood 330 mg/dL (75-99)
[2018-03-27] MEDS ORDERED: WARFARIN 2.5 MG TAB PO ONE (18:00)
[2018-03-27 20:33] LABS: Glucose,Whole Blood 337 mg/dL (75-99)
[2018-03-27] MEDS: SODIUM CHLORIDE 0.9% 1,000 ML IV SCH (21:05)
[2018-03-27] MEDS: INSULIN DETEMIR 100 UNIT/ML 10 ML VIAL SQ SCH (21:05)
[2018-03-28] MEDS: ceFAZolin IN SWFI 2 GM/20 ML SYRINGE IVP SCH ×3 (00:23→16:06)
[2018-03-28] MEDS: traMADol 50 MG TAB PO PRN ×2 (00:28→12:47)
[2018-03-28] MEDS: LEVOTHYROXINE 88 MCG TAB PO SCH (05:22)
[2018-03-28] MEDS: IPRATROPIUM-ALBUTEROL 3 ML NEB INHALATION SCH ×4 (05:55→19:30)
[2018-03-28 06:10] LABS: Glucose,Whole Blood 139 mg/dL (75-99)
[2018-03-28 06:29] LABS: Basophils % (A) 0 %; Eosinophils # (A) 0.1 k/uL (0-0.7); Eosinophils % (A) 1 %; HCT 38.4 % (34.0-46.0); HGB 12.5 gm/dL (11.4-16.0); Lymphocytes # (A) 1.4 k/uL (1.0-4.8); Lymphocytes % (A) 11 %; MCH 32.9 pg (25.0-35.0); MCHC 32.6 g/dL (31.0-37.0); MCV 100.6 fL (80.0-100.0); Macrocytosis Slight; Mean Platelet Volume 7.8; Monocytes # (A) 0.7 k/uL (0-1.0); Monocytes % (A) 5 %; Neutrophils # (A) 10.7 k/uL (1.3-7.7); Neutrophils % (A) 82 %; Platelet Count 248 k/uL (150-450); RBC 3.82 m/uL (3.80-5.40); RDW 14.3 % (11.5-15.5); WBC 13.1 k/uL (3.8-10.6)
[2018-03-28 06:32] LABS: INR 2.9 (<1.2); Prothrombin Time 25.9 sec (9.0-12.0)
[2018-03-28 06:38] LABS: Albumin 3.6 g/dL (3.5-5.0); Potassium 3.7 mmol/L (3.5-5.1); Total Bilirubin 0.3 mg/dL (0.2-1.3); Total Protein 6.4 g/dL (6.3-8.2)
[2018-03-28] MEDS: INSULIN ASPART 100 UNIT/ML 1 ML 10 ML VIAL SQ SCH ×4 (06:51→20:56)
[2018-03-28] MEDS: PANTOPRAZOLE 40 MG TABLET PO SCH (07:33)
[2018-03-28] MEDS: POTASSIUM CHLORIDE ER 20 MEQ TAB.ER PO SCH (07:33)
[2018-03-28] MEDS: FERROUS SULFATE 325 MG TAB PO SCH ×2 (07:33→20:56)
[2018-03-28] MEDS: GABAPENTIN 100 MG CAP PO SCH ×2 (07:33→20:56)
[2018-03-28] MEDS: ISOSORBIDE MONONITRATE ER 30 MG TAB.ER.24H PO SCH (07:34)
[2018-03-28] MEDS: predniSONE 20 MG TAB PO SCH (07:34)
--- NOTE | 2018-03-28 08:11 | PN ---
PROGRESS NOTE DATE OF SERVICE: 03/27/2018. REASON FOR FOLLOW UP: Bilateral leg cellulitis. INTERVAL HISTORY: The patient is currently afebrile. She has been breathing more comfortably. No significant chest pain. Occasional cough. No abdominal pain or pain to the leg area. EXAMINATION: Blood pressure 122/69 with a pulse of 76. Temperature 97.6. She is 97% on 2 L nasal cannula. General description is an elderly female up in the chair in no distress. RESPIRATORY SYSTEM: Unlabored breathing. Clear to auscultation anteriorly. HEART: S1, S2. Regular rate and rhythm. ABDOMEN: Soft, no tenderness. Leg swelling persists and redness improved. DIAGNOSTIC IMPRESSION AND PLAN: Patient with bilateral lower extremity cellulitis, currently covered with cefazolin and is to finish therapy with oral Keflex. Continue supportive care. MMODL / IJN: [id number] /
[2018-03-28] MEDS: FUROSEMIDE 40 MG TAB PO SCH ×3 (08:50→20:56)
--- NOTE | 2018-03-28 12:07 | P.PN ---
Subjective Progress Note Date: 03/28/18 Principal diagnosis: Acute on chronic hypoxic respiratory failure, multifactorial. This is a 77-year-old female with history of chronic hypoxic respiratory failure , known to have history of COPD, remote smoking history, patient is maintained on oxygen at 3 L nasal cannula. Known history of chronic atrial fibrillation, congestive heart failure, COPD, diabetes, deep vein thrombosis, hypertension, osteoarthritis, obstructive sleep apnea syndrome, and hypothyroidism. Normally sees Dr. Alonso as her primary care physician, patient was never seen by a biologics specialist for her pulmonary status, however a year ago she presented with urinary tract infection and sepsis and back then she was seen by Dr. Patrick on consultation. Patient presented to the ER today with a few days' history of increased shortness of breath, cough, increased fluid retention, increased leg swelling, increased abdominal girth, and just not feeling well. Patient denies any fever, no chills, she describes the cough as productive with whitish phlegm, denies any hemoptysis, no chest pain. Patient had a chest x- ray done on this admission, the radiologist questioned mild pulmonary fibrosis, however I felt that the patient has increased interstitial markings, prominent pulmonary vasculature, some linear atelectasis in the right midlung, no clear- cut evidence of pneumonia or infiltrate. Patient was given diuretics, steroids , bronchodilators, and she is still on oxygen at 3 L nasal cannula. Minimal improvement since her admission. On 03/28/2018, patient seems to be feeling better, breathing easier, she does have chronic hypoxic respiratory failure secondary to COPD, chronic diastolic congestive heart failure, mild chronic pulmonary fibrosis, morbid obesity with obesity hypoventilation syndrome. Patient is now on bronchodilators, antibiotics, steroids, diuretics, oxygen, and she is also on home oxygen. Overall there has been improvement since admission over the last few days. Today the patient denies any cough, no shortness of breath at rest, no phlegm production, no chest pain, no nausea no vomiting no abdominal pain, no melena and no hematemesis. CBC is relatively normal basic metabolic profile is also relatively normal except for bicarb is 39 BUN is 68 creatinine is 1.43. Objective - Vital Signs Vital signs: Vital Signs Temp 98.1 F 03/28/18 07:36 Pulse 78 03/28/18 11:51 Resp 12 03/28/18 07:36 BP 132/65 03/28/18 07:36 Pulse Ox 97 03/28/18 07:36 Intake & Output 03/27/18 03/28/18 03/28/18 18:59 06:59 18:59 Intake Total 240 400 Balance 240 400 Intake: Intake, IV Titration 160 Amount Sodium Chloride 0.9% 1, 160 000 ml @ 20 mls/hr IV . Q24H [facility] Rx#:[id number] Oral 240 240 Other: Voiding Method Bedside Commode # Voids 2 2 - Exam Physical Exam: Revealed a 77-year-old female, obese, in no distress. On O2 at 3 L nasal cannula. Head: Atraumatic, normocephalic. HEENT:[Neck is supple.] [No neck masses.] [No thyromegaly.] [No JVD.] Chest: [Minimal fine crackles at the bases, diminished breath sounds at the bases. Scattered rhonchi on forced expiratory maneuver.] Cardiac Exam: [Normal S1 and S2, no S3 gallop, no murmur.] Abdomen: [Soft, nontender, no megaly, no rebound, no guarding, normal bowel sounds.] Extremities: [No clubbing, no edema, no cyanosis.] Chronic venous stasis changes and hyper pigmentation noted bilaterally. Neurological Exam: [No focal neurologic deficit. Skin: No rashes. Psychiatric: Normal mood affect and mental status examination.] - Labs CBC & Chem 7: 03/28/18 05:56 03/28/18 05:56 Labs: Abnormal Lab Results - Last 24 Hours (Table) 03/27/18 03/27/18 03/28/18 Range/Units 17:14 20:32 05:56 WBC 13.1 H (3.8-10.6) k/uL MCV 100.6 H (80.0-100.0) fL Neutrophils # 10.7 H (1.3-7.7) k/uL PT (9.0-12.0) sec INR (<1.2) Chloride (98-107) mmol/L Carbon Dioxide (22-30) mmol/L BUN (7-17) mg/dL Creatinine (0.52-1.04) mg/dL Glucose (74-99) mg/dL POC Glucose (mg/dL) 330 H 337 H (75-99) mg/dL 03/28/18 03/28/18 03/28/18 Range/Units 05:56 05:56 06:07 WBC (3.8-10.6) k/uL MCV (80.0-100.0) fL Neutrophils # (1.3-7.7) k/uL PT 25.9 H (9.0-12.0) sec INR 2.9 H (<1.2) Chloride 92 L (98-107) mmol/L Carbon Dioxide 39 H (22-30) mmol/L BUN 68 H (7-17) mg/dL Creatinine 1.43 H (0.52-1.04) mg/dL Glucose 134 H (74-99) mg/dL POC Glucose (mg/dL) 139 H (75-99) mg/dL Assessment and Plan Assessment: Impression: 1 acute on chronic hypoxic respiratory failure, multifactorial secondary to acute exacerbation of COPD, suspect some component of pulmonary edema, diastolic congestive heart failure midlung atelectasis, and mild pulmonary fibrosis, 2 acute on chronic bilateral lower extremity cellulitis, being followed by infectious disease 3 chronic atrial fibrillation, presently on Coumadin. 4 chronic congestive heart failure, suspect diastolic dysfunction or could be related to her underlying atrial fibrillation. 5 multiple comorbidities including morbid obesity, obesity/hypoventilation syndrome, chronic kidney disease stage IV, benign essential hypertension, hyperlipidemia, type 2 diabetes and history of deep vein thromboses and pulmonary embolism patient is still on Coumadin which is appropriate for now and no need for further workup for thromboembolic disease at this point. Recommendation: Continue present treatment plan including diuretics, bronchodilators, steroids, consider discharge planning to a rehab facility in the next couple of days. Time with Patient: Less than 30
[2018-03-28 12:26] LABS: Glucose,Whole Blood 229 mg/dL (75-99)
--- NOTE | 2018-03-28 14:40 | P.PN ---
Subjective Progress Note Date: 03/28/18 this is a 77-year-old female patient of Dr. Alonso. Patient presented to the emergency room with complaints of increased shortness of breath that started a few days ago. Patient does state she is oxygen dependent at home. Wearing mostly 2 L but has required 3 L over the past 2 days. patient has a past medical history of atrial fibrillation, heart failure, COPD, diabetes mellitus, DVT thrombosis, GERD, hyperlipidemia, hypertension, osteoarthritis, renal disease, rheumatoid arthritis, sleep apnea and thyroid disorder. Patient's cannot recall seeing a administrative clerk outpatient. Patient has seen Dr. Peters in the past during inpatient. Dr. Wen per pulmonary has been consulted. chest x-ray completed showing mild pulmonary fibrosis. There is complaining of the linear infiltrate and atelectasis in the right midlung compared to last exam. No pulmonary consolidation. EKG completed showing sinus rhythm with first-degree AV block. Left anterior vascular block. patient also has bilateral cellulitis on lower extremities. Patient states she has visiting nursing changing dressing weekly. Patient has seen Dr. Yap per infectious disease in the past. Patient also has open sore on backside. Dr. Yap per infectious disease has been consulted. Patient has been started on Solu-Medrol 60 mg every 6 hours. at this time patient denies chest pain. Patient is still complaining of shortness of breath. Patient denies nausea vomiting or diarrhea. she does states she's been having some burning with urination. Urinalysis has been ordered. On 03/23/2018 patient is alert and orientated to 3 resting comfortably in chair. Patient does state breathing is slightly improved. At this time patient denies chest pain. Patient denies nausea vomiting or diarrhea. Patient has been started on insulin drip due to elevated blood sugars. On 03/24/2018 patient is alert and oriented 3. Patient currently sitting in chair. Patient remained short of breath post activity. Patient currently on 2 L. Patient remains on insulin drip to due elevated blood sugars. Patient currently also on IV Lasix 40 mg every 8 hours. IV steroids have been transitioned to oral steroids per pulmonary. At this time patient denies chest pain. Patient denies any urinary burning or frequency. Patient denies nausea vomiting diarrhea. On 03/25/2018 patient is alert and oriented 3. Patient is currently resting comfortably in chair. Patient states improvement with shortness of breath. Patient denies chest pain patient denies nausea vomiting or diarrhea. Patient denies any urinary burning or frequency 03/26/2018 patient still having some shortness of breath with activity. She is seeing improvement in her breathing since being admitted to the hospital. Lower extremities are Myles wrap with still some cellulitis and swelling. Denies any chest pain. She denies any nausea or vomiting reports having bowel movements. Denies any difficulty urinating. On 03/27/2018 patient is alert and oriented 3 in no apparent distress he is complaining of shortness of breath with activity is also complaining of cough. Otherwise she denies any complaints. There is no fever or chills no chest pain no headache or dizziness nausea or vomiting no abdominal pain no diarrhea or constipation and no urinary symptoms On 03/28/2018 patient was seen and examined she is alert and oriented 3 in no apparent distress still complaining of cough and shortness of breath with any activity otherwise she denies any complaints there is no chest pain no headache no dizziness no fever or chills no nausea or vomiting no abdominal pain no diarrhea no burning with urination no frequency or urgency and no hematuria Objective - Vital Signs Vital signs: Vital Signs Temp 98.1 F 03/28/18 07:36 Pulse 78 03/28/18 11:51 Resp 12 03/28/18 07:36 BP 132/65 03/28/18 07:36 Pulse Ox 97 03/28/18 07:36 Intake & Output 03/27/18 03/28/18 03/28/18 18:59 06:59 18:59 Intake Total 240 400 100 Balance 240 400 100 Intake: Intake, IV Titration 160 100 Amount Sodium Chloride 0.9% 1, 160 100 000 ml @ 20 mls/hr IV . Q24H [facility] Rx#:[id number] Oral 240 240 Other: Voiding Method Bedside Commode # Voids 2 2 - Exam Head normocephalic Neck supple Lungs clear to auscultation bilaterally no wheezing or crackles Heart regular rate and rhythm S1-S2, no rub or gallop Abdomen is soft nontender nondistended positive bowel sounds no hepatosplenomegaly Extremities +2 bilateral lower extremity edema. Bilateral lower extremity redness Neuro alert and orientated to 3 - Labs CBC & Chem 7: 03/28/18 05:56 03/28/18 05:56 Labs: Abnormal Lab Results - Last 24 Hours (Table) 03/27/18 03/27/18 03/28/18 Range/Units 17:14 20:32 05:56 WBC 13.1 H (3.8-10.6) k/uL MCV 100.6 H (80.0-100.0) fL Neutrophils # 10.7 H (1.3-7.7) k/uL PT (9.0-12.0) sec INR (<1.2) Chloride (98-107) mmol/L Carbon Dioxide (22-30) mmol/L BUN (7-17) mg/dL Creatinine (0.52-1.04) mg/dL Glucose (74-99) mg/dL POC Glucose (mg/dL) 330 H 337 H (75-99) mg/dL 03/28/18 03/28/18 03/28/18 Range/Units 05:56 05:56 06:07 WBC (3.8-10.6) k/uL MCV (80.0-100.0) fL Neutrophils # (1.3-7.7) k/uL PT 25.9 H (9.0-12.0) sec INR 2.9 H (<1.2) Chloride 92 L (98-107) mmol/L Carbon Dioxide 39 H (22-30) mmol/L BUN 68 H (7-17) mg/dL Creatinine 1.43 H (0.52-1.04) mg/dL Glucose 134 H (74-99) mg/dL POC Glucose (mg/dL) 139 H (75-99) mg/dL 03/28/18 Range/Units 12:24 WBC (3.8-10.6) k/uL MCV (80.0-100.0) fL Neutrophils # (1.3-7.7) k/uL PT (9.0-12.0) sec INR (<1.2) Chloride (98-107) mmol/L Carbon Dioxide (22-30) mmol/L BUN (7-17) mg/dL Creatinine (0.52-1.04) mg/dL Glucose (74-99) mg/dL POC Glucose (mg/dL) 229 H (75-99) mg/dL Assessment and Plan Plan: 1. Acute on chronic hypoxic history failure, multifactorial, secondary to acute exacerbation of COPD, suspect some component of pulmonary edema secondary to diastolic congestive heart failure, midlung atelectasis and possible mild pulmonary fibrosis, morbid obesity Chest x-ray completed showing mild pulmonary fibrosis. There is clearing of the linear infiltrate and atelectasis in the right midlung compared to last exam. No pulmonary consolidation. Patient started on Solu-Medrol 60 mg every 6 hours. Patient is been switched over to oral prednisone yesterday. She remains on IV Lasix. 2. Bilateral lower extremity cellulitis. Patient currently has Silvadene dressing and Myles wraps. Patient states she has home visiting nursing changing dressing weekly. Dr. Yap per infectious disease has been consulted. patient has been started on cefazolin per infectious disease 3. History of paroxysmal atrial fibrillation. Anticoagulated with Coumadin. Pharmacy dosing Coumadin 4. Acute on chronic chronic diastolic congestive heart failure exacerbation. Currently on IV Lasix 5. History of deep vein thrombosis and pulmonary embolism. Patient is on Coumadin. 6. History of diabetes mellitus. Off of insulin drip. Continue Levemir and NovoLog. Expect improvement in blood sugars since she's been switched over to prednisone 7. History of GERD 8. History of hypertension 9. History of hyperlipidemia 10. History of chronic kidney disease stage IV.creatinine 1.69 and bun 71. this does appear to be baseline for patient 11. History of sleep apnea 12. History of hypothyroidism. continue Synthroid 13. decubitus ulcer coccyx present on admission. Apply dressing. Dr. Yap per infectious disease consulted DVT prophylaxis Coumadin. GI prophylaxis Protonix Patient unable to afford ECF. At time of discharge she'll be discharged home with home care Encouraged patient to increase activity. Continue with physical therapy.
[2018-03-28 17:35] LABS: Glucose,Whole Blood 272 mg/dL (75-99)
[2018-03-28] MEDS ORDERED: WARFARIN 2.5 MG TAB PO ONE (18:00)
[2018-03-28 20:55] LABS: Glucose,Whole Blood 285 mg/dL (75-99)
[2018-03-28] MEDS: INSULIN DETEMIR 100 UNIT/ML 10 ML VIAL SQ SCH (20:56)
[2018-03-28] MEDS: SODIUM CHLORIDE 0.9% 1,000 ML IV SCH (22:39)
[2018-03-29] MEDS: ceFAZolin IN SWFI 2 GM/20 ML SYRINGE IVP SCH ×3 (00:30→16:11)
--- NOTE | 2018-03-29 00:35 | PN ---
PROGRESS NOTE DATE OF SERVICE: 03/28/2018. REASON FOR FOLLOWUP: Bilateral leg cellulitis. INTERVAL HISTORY: The patient is currently afebrile. She is breathing comfortably. Denies having any chest pain, shortness of breath or cough or any pain to the leg area. EXAMINATION: Blood pressure 136/75 with a pulse of 78, temperature 98.1. She is 96% on 2 L nasal cannula. General description is an elderly female up in the chair in no distress. Respiratory system unlabored breathing. Clear to auscultation anteriorly. Heart S1, S2 regular rate and rhythm. Abdomen is soft, no tenderness. Leg swelling persists, redness has improved. No open wound or drainage. LABS: Hemoglobin is 12.5 with white count 13.4 with a BUN of 16, creatinine 1.43. DIAGNOSTIC IMPRESSION AND PLAN: 1. Patient with left leg cellulitis for which the patient is currently on cefazolin that will be transitioned to p.o. Keflex and Rocephin. 2. The patient with slightly elevated white more likely or thrush for which Nystatin swish and swallow will be ordered. 3. Continue supportive care. MMODL / IJN: [id number] /
[2018-03-29] MEDS: LEVOTHYROXINE 88 MCG TAB PO SCH (05:27)
[2018-03-29 07:35] LABS: Glucose,Whole Blood 137 mg/dL (75-99)
[2018-03-29] MEDS: INSULIN ASPART 100 UNIT/ML 1 ML 10 ML VIAL SQ SCH ×3 (08:03→17:53)
[2018-03-29] MEDS: FERROUS SULFATE 325 MG TAB PO SCH (08:13)
[2018-03-29] MEDS: FUROSEMIDE 40 MG TAB PO SCH ×2 (08:13→17:53)
[2018-03-29] MEDS: PANTOPRAZOLE 40 MG TABLET PO SCH (08:13)
[2018-03-29] MEDS: ISOSORBIDE MONONITRATE ER 30 MG TAB.ER.24H PO SCH (08:13)
[2018-03-29] MEDS: POTASSIUM CHLORIDE ER 20 MEQ TAB.ER PO SCH (08:13)
[2018-03-29] MEDS: predniSONE 20 MG TAB PO SCH (08:13)
[2018-03-29] MEDS: NYSTATIN 100,000 UNIT/ML SUSP 500,000 UNIT/5 ML CUP PO SCH ×3 (08:13→17:52)
[2018-03-29] MEDS: GABAPENTIN 100 MG CAP PO SCH (08:13)
[2018-03-29] MEDS: IPRATROPIUM-ALBUTEROL 3 ML NEB INHALATION SCH ×3 (09:50→16:45)
[2018-03-29 10:57] LABS: Basophils % (A) 0 %; Eosinophils # (A) 0.1 k/uL (0-0.7); Eosinophils % (A) 1 %; HCT 38.3 % (34.0-46.0); HGB 12.6 gm/dL (11.4-16.0); Hypochromasia Slight; Lymphocytes # (A) 1.6 k/uL (1.0-4.8); Lymphocytes % (A) 11 %; MCH 33.3 pg (25.0-35.0); MCHC 32.8 g/dL (31.0-37.0); MCV 101.6 fL (80.0-100.0); Macrocytosis Slight; Mean Platelet Volume 7.8; Monocytes # (A) 0.8 k/uL (0-1.0); Monocytes % (A) 6 %; Neutrophils # (A) 11.5 k/uL (1.3-7.7); Neutrophils % (A) 81 %; Platelet Count 247 k/uL (150-450); RBC 3.77 m/uL (3.80-5.40); RDW 14.2 % (11.5-15.5); WBC 14.2 k/uL (3.8-10.6)
[2018-03-29 10:58] LABS: INR 2.9 (<1.2); Prothrombin Time 25.9 sec (9.0-12.0)
[2018-03-29 11:03] LABS: Albumin 3.6 g/dL (3.5-5.0); Calcium 8.9 mg/dL (8.4-10.2); Potassium 3.6 mmol/L (3.5-5.1); Total Bilirubin 0.3 mg/dL (0.2-1.3); Total Protein 6.3 g/dL (6.3-8.2)
[2018-03-29 12:10] LABS: Glucose,Whole Blood 168 mg/dL (75-99)
[2018-03-29] MEDS: ERGOCALCIFEROL 50,000 UNIT CAP PO SCH (12:34)
[2018-03-29] MEDS: traMADol 50 MG TAB PO PRN (12:36)
--- NOTE | 2018-03-29 13:24 | P.PN ---
Subjective Progress Note Date: 03/29/18 Principal diagnosis: COPD exacerbation Progress note dated 03/27/2018 77-year-old female with a history of acute on chronic hypoxemic respiratory failure secondary to both COPD exacerbation as well as diastolic congestive heart failure. In addition, the patient has mild pulmonary fibrosis morbid obesity with restrictive lung disease and some atelectasis. This morning, the patient feels improved. She sitting up in a chair sleeping. She states her breathing has improved. In addition to the above, the patient has a history of lower extremities cellulitis, chronic atrial fibrillation, diastolic CHF, morbid obesity, pickwickian syndrome, chronic kidney disease, benign essential hypertension, hyperlipidemia, type 2 diabetes, history of DVT/pulmonary embolism , and other medical problems. The patient denies any significant cough. No phlegm production. No fever or chills. There is no chest pain or chest discomfort. Progress note dated 03/29/2018 77-year-old female with history of acute on chronic hypoxemic respiratory failure secondary to both COPD exacerbation as well as diastolic heart failure. The patient is doing relatively well. In addition, she has a history of some mild pulmonary fibrosis, morbid obesity, restrictive lung disease, and atelectasis. She is improved. She might be discharged home in the next day or so. In addition, she has a history of lower extremity cellulitis chronic atrial fibrillation diastolic CHF pickwickian syndrome chronic kidney disease benign essential hypertension hyperlipidemia type 2 diabetes DVT/pulmonary embolism as well as a whole host of other medical problems and comorbidities. She denies any complaints at this time. Her shortness of breath has improved. She has minimal cough without phlegm production. No pain. White count is 14.2 , hemoglobin 12.6 hematocrit 38.3 and platelet counts normal. In addition, PT and INR are therapeutic. Sodium potassium are normal. Chloride is 92 CO2 35 BUN 59 and creatinine 1.2. Microbiologic studies are negative. Objective - Vital Signs Vital signs: Vital Signs Temp 97.9 F 03/29/18 07:00 Pulse 68 03/29/18 07:00 Resp 17 03/29/18 07:00 BP 140/68 03/29/18 07:00 Pulse Ox 90 L 03/29/18 07:00 Intake & Output 03/28/18 03/29/18 03/29/18 18:59 06:59 18:59 Intake Total 100 Balance 100 Weight 133.8 kg Intake: Intake, IV Titration 100 Amount Sodium Chloride 0.9% 1, 100 000 ml @ 20 mls/hr IV . Q24H [facility] Rx#:[id number] Other: Voiding Method Bedside Commode Bedside Commode # Voids 1 2 # Bowel Movements 1 - Exam No acute distress, oriented 3. HEENT examination is grossly unremarkable. Mucous membranes are moist. No oral lesions. Neck supple. Full range of motion. No adenopathy thyromegaly or neck vein distention. Cardiovascular examination reveals irregular rhythm and rate. S1-S2 normal. No S3 or S4. No discernible murmur noted. Lungs reveal mostly clear breath sounds. A few scattered mild rhonchi. No wheezes or crackles. Breath sounds equal bilaterally. Breath sounds are much improved. Abdomen soft bowel sounds are heard. No masses or tenderness. Extremities reveal chronic venous stasis and hyperpigmentation. Myles wraps noted. Lower extremity edema with pitting is appreciated. Skin is without rash or lesion. Neurologic examination is brief but nonfocal. - Labs CBC & Chem 7: 03/29/18 09:11 03/29/18 09:11 Labs: Abnormal Lab Results - Last 24 Hours (Table) 03/28/18 03/28/18 03/29/18 Range/Units 17:23 20:43 07:20 WBC (3.8-10.6) k/uL RBC (3.80-5.40) m/uL MCV (80.0-100.0) fL Neutrophils # (1.3-7.7) k/uL PT (9.0-12.0) sec INR (<1.2) Chloride (98-107) mmol/L Carbon Dioxide (22-30) mmol/L BUN (7-17) mg/dL Creatinine (0.52-1.04) mg/dL Glucose (74-99) mg/dL POC Glucose (mg/dL) 272 H 285 H 137 H (75-99) mg/dL ALT (9-52) U/L 03/29/18 03/29/18 03/29/18 Range/Units 09:11 09:11 09:11 WBC 14.2 H (3.8-10.6) k/uL RBC 3.77 L (3.80-5.40) m/uL MCV 101.6 H (80.0-100.0) fL Neutrophils # 11.5 H (1.3-7.7) k/uL PT 25.9 H (9.0-12.0) sec INR 2.9 H (<1.2) Chloride 92 L (98-107) mmol/L Carbon Dioxide 35 H (22-30) mmol/L BUN 59 H (7-17) mg/dL Creatinine 1.22 H (0.52-1.04) mg/dL Glucose 137 H (74-99) mg/dL POC Glucose (mg/dL) (75-99) mg/dL ALT 6 L (9-52) U/L 03/29/18 Range/Units 11:54 WBC (3.8-10.6) k/uL RBC (3.80-5.40) m/uL MCV (80.0-100.0) fL Neutrophils # (1.3-7.7) k/uL PT (9.0-12.0) sec INR (<1.2) Chloride (98-107) mmol/L Carbon Dioxide (22-30) mmol/L BUN (7-17) mg/dL Creatinine (0.52-1.04) mg/dL Glucose (74-99) mg/dL POC Glucose (mg/dL) 168 H (75-99) mg/dL ALT (9-52) U/L Assessment and Plan Assessment: Assessment Acute on chronic hypoxemic respiratory failure, multifactorial, in part related to underlying COPD exacerbation, mild pulmonary edema secondary to diastolic CHF , atelectasis, pulmonary fibrosis and restrictive lung disease secondary to morbid obesity Chronic lower extremity edema with cellulitis Chronic atrial fibrillation Diastolic CHF Morbid obesity/pickwickian syndrome/restrictive lung disease Chronic kidney disease Benign essential hypertension Hyperlipidemia Type 2 diabetes DVT/pulmonary embolism. Plan: Plan dated 03/27/2018 Overall, the patient does not look badly. The patient sitting up in a chair. She states her breathing has improved. She states that she's not having any any cough. No phlegm production. No fever chills chest pain chest discomfort nausea vomiting or diarrhea. She is hoping to be discharged home in the near future. Additional recommendations and suggestions are forthcoming. White count 10.9, hemoglobin 12.1, and platelet count normal. PT INR is therapeutic. Sodium and potassium are normal. Chloride 92, with a carbon dioxide of 35. BUN and creatinine were 79 and [address] is not particularly impressive. Medications are reviewed. Plan dated 03/29/2018 The patient is doing better. She sitting up in a chair. Her breathing has greatly improved. Labs have been mentioned above. Her vital signs are stable. She is afebrile. Heart rates high 60s. Blood pressure is normal. Her 2 L saturation is 99%. Medications are reviewed. Her INR is therapeutic. Prognosis is guarded. We'll see as needed. Time with Patient: Less than 30
--- NOTE | 2018-03-29 14:37 | P.DS ---
Providers Date of admission: 03/21/18 21:01 Expected date of discharge: 03/29/18 Attending physician: Michel Oliver Consults: 03/22/18 10:03 Consult Physician Routine Consulting Provider: Eugenio Patrick Consult Reason/Comments: COPD Do you want consulting provider notified?: Yes 03/22/18 10:04 Consult Physician Routine Consulting Provider: Melly Yap Consult Reason/Comments: Bilateral lower extremetity cellulits, open ulcer on back Do you want consulting provider notified?: Yes Primary care physician: Linnea Alonso Hospital Course: Discharge summary 1. Acute on chronic hypoxic history failure, multifactorial, secondary to acute exacerbation of COPD, suspect some component of pulmonary edema secondary to diastolic congestive heart failure, midlung atelectasis and possible mild pulmonary fibrosis, morbid obesity Chest x-ray completed showing mild pulmonary fibrosis. There is clearing of the linear infiltrate and atelectasis in the right midlung compared to last exam. No pulmonary consolidation. Patient started on Solu-Medrol 60 mg every 6 hours. Patient is been switched over to oral prednisone yesterday. She remains on IV Lasix. Patient has been switched to by mouth Lasix 43 times a day. Patient will be DC'd on Lasix 40, 3 times a day. patient has been cleared for discharge from pulmonary services 2. Bilateral lower extremity cellulitis. Patient currently has Silvadene dressing and Myles wraps. Patient states she has home visiting nursing changing dressing weekly. Dr. Yap per infectious disease has been consulted. patient has been started on cefazolin per infectious disease. Patient has been cleared for discharge from infectious disease. Patient will be DC'd home on Keflex 500 3 times a day for 10 days. 3. History of paroxysmal atrial fibrillation. Anticoagulated with Coumadin. Pharmacy dosing Coumadin. Home dose of Coumadin resumed upon discharge. PT/ INR ordered for 2 days. Patient to follow-up closely with PCP 4. Acute on chronic chronic diastolic congestive heart failure exacerbation. Patient will be to home on Lasix 40, 3 times a day 5. History of deep vein thrombosis and pulmonary embolism. Patient is on Coumadin. 6. History of diabetes mellitus. Off of insulin drip. Continue Levemir and NovoLog. Expect improvement in blood sugars since she's been switched over to prednisone. Home insulin doses resumed. Patient to follow-up closely with PCP 7. History of GERD 8. History of hypertension 9. History of hyperlipidemia 10. History of chronic kidney disease stage IV.creatinine 1.69 and bun 71. this does appear to be baseline for patient. Creatinine improving to 1.22 and bun 59. She to follow-up closely with PCP 11. History of sleep apnea 12. History of hypothyroidism. continue Synthroid 13. decubitus ulcer coccyx present on admission. Apply dressing. Dr. Yap per infectious disease consulted 14. Thrush. Patient will be DC'd home on nystatin. Hospital course this is a 77-year-old female patient of Dr. Alonso. Patient presented to the emergency room with complaints of increased shortness of breath that started a few days ago. Patient does state she is oxygen dependent at home. Wearing mostly 2 L but has required 3 L over the past 2 days. patient has a past medical history of atrial fibrillation, heart failure, COPD, diabetes mellitus, DVT thrombosis, GERD, hyperlipidemia, hypertension, osteoarthritis, renal disease, rheumatoid arthritis, sleep apnea and thyroid disorder. Patient's cannot recall seeing a hop farmer outpatient. Patient has seen Dr. Peters in the past during inpatient. Dr. Behzad kaur pulmonary has been consulted. chest x-ray completed showing mild pulmonary fibrosis. There is complaining of the linear infiltrate and atelectasis in the right midlung compared to last exam. No pulmonary consolidation. EKG completed showing sinus rhythm with first-degree AV block. Left anterior vascular block. patient also has bilateral cellulitis on lower extremities. Patient states she has visiting nursing changing dressing weekly. Patient has seen Dr. Yap per infectious disease in the past. Patient also has open sore on backside. Dr. Yap per infectious disease has been consulted. Patient has been started on Solu-Medrol 60 mg every 6 hours. at this time patient denies chest pain. Patient is still complaining of shortness of breath. Patient denies nausea vomiting or diarrhea. she does states she's been having some burning with urination. Urinalysis has been ordered. On 03/23/2018 patient is alert and orientated to 3 resting comfortably in chair. Patient does state breathing is slightly improved. At this time patient denies chest pain. Patient denies nausea vomiting or diarrhea. Patient has been started on insulin drip due to elevated blood sugars. On 03/24/2018 patient is alert and oriented 3. Patient currently sitting in chair. Patient remained short of breath post activity. Patient currently on 2 L. Patient remains on insulin drip to due elevated blood sugars. Patient currently also on IV Lasix 40 mg every 8 hours. IV steroids have been transitioned to oral steroids per pulmonary. At this time patient denies chest pain. Patient denies any urinary burning or frequency. Patient denies nausea vomiting diarrhea. On 03/25/2018 patient is alert and oriented 3. Patient is currently resting comfortably in chair. Patient states improvement with shortness of breath. Patient denies chest pain patient denies nausea vomiting or diarrhea. Patient denies any urinary burning or frequency 03/26/2018 patient still having some shortness of breath with activity. She is seeing improvement in her breathing since being admitted to the hospital. Lower extremities are Myles wrap with still some cellulitis and swelling. Denies any chest pain. She denies any nausea or vomiting reports having bowel movements. Denies any difficulty urinating. On 03/27/2018 patient is alert and oriented 3 in no apparent distress he is complaining of shortness of breath with activity is also complaining of cough. Otherwise she denies any complaints. There is no fever or chills no chest pain no headache or dizziness nausea or vomiting no abdominal pain no diarrhea or constipation and no urinary symptoms On 03/28/2018 patient was seen and examined she is alert and oriented 3 in no apparent distress still complaining of cough and shortness of breath with any activity otherwise she denies any complaints there is no chest pain no headache no dizziness no fever or chills no nausea or vomiting no abdominal pain no diarrhea no burning with urination no frequency or urgency and no hematuria On 03/29/2018 patient remains alert and oriented 3. She required 2 L of O2 in which she does wear at home. Patient has been cleared for discharge from consulting providers. Patient will be home on prednisone taper, Lasix 40 3 times a day and Keflex antibiotic. CMP and PT/INR has been ordered for 2 days. Patient to follow-up closely with PCP and consulting providers. At this time patient denies chest pain or shortness breath. Patient denies any urinary burning or frequency. Patient denies nausea vomiting or diarrhea. Patient Condition at Discharge: Stable Plan - Discharge Summary Discharge Rx Participant: No New Discharge Prescriptions: New Cephalexin [Keflex] 500 mg PO Q8HR 5 Days #15 cap Furosemide [Lasix] 40 mg PO TID #90 tab Nystatin 100,000 Unit/ml Susp [Mycostatin Oral Susp] 500,000 unit PO QID 7 Days #21 cup predniSONE 10 mg PO DIRECTED #30 tab Continue Albuterol Inhaler [Ventolin Hfa Inhaler] 2 puff INHALATION RT-Q4H PRN PRN Reason: Shortness Of Breath Insulin Lispro [humaLOG Kwikpen] See Protocol SQ AC-TID Meclizine [Antivert] 25 mg PO TID PRN PRN Reason: Vertigo Albuterol Nebulized [Ventolin Nebulized] 2.5 mg INHALATION RT-Q4H PRN PRN Reason: Shortness Of Breath Isosorbide Mononitrate ER [Imdur] 30 mg PO DAILY Ferrous Sulfate [Iron (65 MG Elemental)] 325 mg PO BID Levothyroxine Sodium [Synthroid] 88 mcg PO DAILY@0630 tab traMADol HCL [Ultram] 50 mg PO Q12H PRN #6 tablet PRN Reason: Pain Insulin Glargine [Lantus] 10 unit SQ HS Ubidecarenone [Co Q-10] 200 mg PO DAILY Ergocalciferol [Vitamin D2 (DRISDOL)] 50,000 unit PO Q7D Potassium Chloride ER [K-Dur 20] 20 meq PO DAILY Gabapentin [Neurontin] 100 mg PO BID Warfarin Sodium [Coumadin] 2 mg PO HS Discontinued Furosemide [Lasix] 80 mg PO DAILY Discharge Medication List Albuterol Inhaler [Ventolin Hfa Inhaler] 2 puff INHALATION RT-Q4H PRN 04/29/16 [ History] Insulin Lispro [humaLOG Kwikpen] See Protocol SQ AC-TID 07/24/16 [History] Meclizine [Antivert] 25 mg PO TID PRN 07/24/16 [History] Albuterol Nebulized [Ventolin Nebulized] 2.5 mg INHALATION RT-Q4H PRN 01/16/17 [ History] Isosorbide Mononitrate ER [Imdur] 30 mg PO DAILY 01/16/17 [History] Ferrous Sulfate [Iron (65 MG Elemental)] 325 mg PO BID 09/17/17 [History] Levothyroxine Sodium [Synthroid] 88 mcg PO DAILY@0630 tab 09/25/17 [Rx] traMADol HCL [Ultram] 50 mg PO Q12H PRN #6 tablet 09/25/17 [Rx] Ergocalciferol [Vitamin D2 (DRISDOL)] 50,000 unit PO Q7D 03/22/18 [History] Gabapentin [Neurontin] 100 mg PO BID 03/22/18 [History] Insulin Glargine [Lantus] 10 unit SQ HS 03/22/18 [History] Potassium Chloride ER [K-Dur 20] 20 meq PO DAILY 03/22/18 [History] Ubidecarenone [Co Q-10] 200 mg PO DAILY 03/22/18 [History] Warfarin Sodium [Coumadin] 2 mg PO HS 03/22/18 [History] Cephalexin [Keflex] 500 mg PO Q8HR 5 Days #15 cap 03/29/18 [Rx] Furosemide [Lasix] 40 mg PO TID #90 tab 03/29/18 [Rx] Nystatin 100,000 Unit/ml Susp [Mycostatin Oral Susp] 500,000 unit PO QID 7 Days #21 cup 03/29/18 [Rx] predniSONE 10 mg PO DIRECTED #30 tab 03/29/18 [Rx] Follow up Appointment(s)/Referral(s): [facility], [NON-STAFF] - Linnea Alonso DO [Primary Care Provider] - 1-2 days Eugenio Patrick MD [STAFF PHYSICIAN] - 1 Week Ambulatory/Diagnostic Orders: Prothrombin Time INR [LAB.AMB] Time Frame: 2 Days, Location: None Selected Activity/Diet/Wound Care/Special Instructions: Diet consistent carb Activity as tolerated Discharge Disposition: HOME WITH HOME HEALTH SERVICES
[2018-03-29 15:07] VITALS: BMI 49.1
[2018-03-29 15:11] VITALS: BP 140/62; PULSE 70; RESP 17; TEMP 98.9
--- NOTE | 2018-03-29 16:09 | PN ---
PROGRESS NOTE DATE OF SERVICE: 03/29/2018 REASON FOR FOLLOW UP: Bilateral lower extremity cellulitis. INTERVAL HISTORY: The patient is currently afebrile. Her breathing has slightly improved. Denies significant chest pain. Occasional cough. No abdominal pain or pain to the leg area. PHYSICAL EXAMINATION: Blood pressure 140/68 with a pulse of 68, temperature 97.9. She is 90% on 2 L nasal cannula. General description is an elderly female up in the chair in no distress. RESPIRATORY SYSTEM: Unlabored breathing. Clear to auscultation anteriorly. HEART: S1, S2. Regular rate and rhythm. ABDOMEN: Soft. No tenderness. LABS: Hemoglobin 12.6, hematocrit 14.2, BUN of 59, creatinine 1.22. DIAGNOSTIC IMPRESSION AND PLAN: 1. Patient with bilateral lower extremity cellulitis. To finish therapy with a short course of oral Keflex. 2. Elevated white count, possible oropharyngeal. Recommend nystatin swish and swallow for about a week with close outpatient followup. MMODL / IJN: [id number] /
[2018-03-29 17:37] LABS: Glucose,Whole Blood 220 mg/dL (75-99)
[2018-03-29] MEDS ORDERED: WARFARIN 2.5 MG TAB PO ONE (18:00)
[2018-03-29] MEDS ORDERED: INSULIN DETEMIR 100 UNIT/ML 10 ML VIAL SQ SCH (21:00)
[2018-04-05] MEDS ORDERED: ERGOCALCIFEROL 50,000 UNIT CAP PO SCH (09:00)
== END 2018-03-29 18:25 | disposition home health service (06) | DRG 291 ==
LOC: EC 19:23 → 3SUR 21:01 → 4SSUR 03-28 08:01
PROVIDERS: ADMIT Internal Medicine; ATTEND Internal Medicine
DX: I13.0 Hypertensive heart and chronic kidney disease with heart failure and stage 1 through stage 4 chronic kidney disease, or unspecified chronic kidney disease (principal); J96.21 Acute and chronic respiratory failure with hypoxia; I50.33 Acute on chronic diastolic (congestive) heart failure; B37.0 Candidal stomatitis; E66.2 Morbid (severe) obesity with alveolar hypoventilation; Z68.42 Body mass index [BMI] 45.0-49.9, adult; J44.1 Chronic obstructive pulmonary disease with (acute) exacerbation; J98.11 Atelectasis; L03.115 Cellulitis of right lower limb; L03.116 Cellulitis of left lower limb; N18.4 Chronic kidney disease, stage 4 (severe); E03.9 Hypothyroidism, unspecified; E11.22 Type 2 diabetes mellitus with diabetic chronic kidney disease; E11.65 Type 2 diabetes mellitus with hyperglycemia; E78.5 Hyperlipidemia, unspecified; Z86.711 Personal history of pulmonary embolism; Z86.718 Personal history of other venous thrombosis and embolism; Z79.01 Long term (current) use of anticoagulants; I44.0 Atrioventricular block, first degree; I48.0 Paroxysmal atrial fibrillation; I48.2 Chronic atrial fibrillation; J84.10 Pulmonary fibrosis, unspecified; K21.9 Gastro-esophageal reflux disease without esophagitis; L89.159 Pressure ulcer of sacral region, unspecified stage; M06.9 Rheumatoid arthritis, unspecified; Z87.440 Personal history of urinary (tract) infections; T38.0X5A Adverse effect of glucocorticoids and synthetic analogues, initial encounter; Z79.4 Long term (current) use of insulin; Z82.49 Family history of ischemic heart disease and other diseases of the circulatory system; Z87.891 Personal history of nicotine dependence; Z90.710 Acquired absence of both cervix and uterus; Z96.651 Presence of right artificial knee joint; Z99.81 Dependence on supplemental oxygen; M10.9 Gout, unspecified; Z84.1 Family history of disorders of kidney and ureter; Z88.2 Allergy status to sulfonamides; Z88.7 Allergy status to serum and vaccine; G43.909 Migraine, unspecified, not intractable, without status migrainosus; Z98.42 Cataract extraction status, left eye; Z98.41 Cataract extraction status, right eye; Z79.52 Long term (current) use of systemic steroids; Z79.899 Other long term (current) drug therapy; Z79.890 Hormone replacement therapy
CPT/HCPCS: 36415; 71045; 71046; 71250; 80053; 81003; 82550; 82553; 82947; 83036; 83735; 83880; 84132; 84484; 85025; 85610; 85730; 93005; 94640; 94760; 96374; 99285

== ENCOUNTER 2019-02-09 23:26 | Inpatient (IN) | payer MEDICARE ==
[2019-02-10 01:10] LABS: Appearance,Urine Cloudy (Clear); Bilirubin,Urine Negative (Negative); Blood,Urine Moderate (Negative); Color,Urine Yellow; Glucose,Urine (UA) Negative (Negative); Hyaline Casts,Urine 2 /lpf (0-2); Ketones,Urine Negative (Negative); Leukocyte Esterase,Urine Large (Negative); Mucus,Urine Rare /hpf; Nitrite,Urine Negative (Negative); Protein,Urine Negative (Negative); RBC,Urine 31 /hpf (0-5); Specific Gravity,Urine 1.013 (1.001-1.035); Squamous Epithelial Cell,Urine 3 /hpf (0-4); Urobilinogen,Urine <2.0 mg/dL (<2.0)
[2019-02-10] MEDS ORDERED: cefTRIAXone IN SWFI 1,000 MG/10 ML SYRINGE IVP STA (01:37)
[2019-02-10] MEDS ORDERED: SODIUM CHLORIDE 0.9% 1,000 ML IV STA (01:47)
[2019-02-10 02:07] LABS: HCT 44.1 % (34.0-46.0); HGB 13.7 gm/dL (11.4-16.0); MCH 30.5 pg (25.0-35.0); MCV 98.3 fL (80.0-100.0); Mean Platelet Volume 8.9; Platelet Count 189 k/uL (150-450); RBC 4.49 m/uL (3.80-5.40); RDW 14.8 % (11.5-15.5); WBC 42.4 k/uL (3.8-10.6)
[2019-02-10 02:16] LABS: Albumin 4.3 g/dL (3.5-5.0); Calcium 10.1 mg/dL (8.4-10.2); Total Bilirubin 1.1 mg/dL (0.2-1.3); Total Protein 7.2 g/dL (6.3-8.2)
--- NOTE | 2019-02-10 02:19 | XR ---
EXAM: XR Chest, 2 Views CLINICAL HISTORY: ITS.REASON XR Reason: abdominal pain TECHNIQUE: Frontal and lateral views of the chest. COMPARISON: 03/23/18. FINDINGS: Lungs: Prominent interstitial lung opacities. Pleural space: No significant pleural effusion or pneumothorax. Heart: Stable cardiomediastinal silhouette. Mediastinum: See above. Bones/joints: No acute fracture. IMPRESSION: Prominent interstitial lung opacities, may be chronic with mild superimposed acute process not excluded in the appropriate clinical setting.
[2019-02-10 02:25] LABS: Potassium 4.6 mmol/L (3.5-5.1)
[2019-02-10 03:03] LABS: Band Neutrophils % 3 %; Lymphocytes # (M) 0.42 k/uL (1.0-4.8); Monocytes # (M) 0.42 k/uL (0-1.0); Neutrophils % (M) 95 %; Nucleated Red Blood Cells 0 /100 WBC (0-0); Total Cells Counted 100
--- NOTE | 2019-02-10 04:11 | ED ---
General Adult HPI - General Chief complaint: Weakness Stated complaint: Bladder Pain Time Seen by Provider: 02/10/19 01:28 Source: patient, family Mode of arrival: wheelchair Limitations: no limitations - History of Present Illness Initial comments: 18 is an 78-year-old female who presents to the emergency department via private vehicle for evaluation of generalized weakness and concerned that she has a urinary tract infection. Patient reports that she just has pain all over her body isn't feeling well and really she has a urinary tract infection. reports that she was shivering earlier in the evening and she couldn't get warm. He is concerned that she may have a fever of they did not check her temperature at home. Patient also notes redness and swelling of her bilateral lower extremities which is chronic in nature. - Related Data Home Medications Medication Instructions Recorded Confirmed Albuterol Inhaler [Ventolin Hfa 2 puff INHALATION RT-Q4H PRN 04/29/16 03/22/18 Inhaler] Insulin Lispro [humaLOG Kwikpen] See Protocol SQ AC-TID 07/24/16 03/22/18 Meclizine [Antivert] 25 mg PO TID PRN 07/24/16 03/22/18 Albuterol Nebulized [Ventolin 2.5 mg INHALATION RT-Q4H PRN 01/16/17 03/22/18 Nebulized] Isosorbide Mononitrate ER [Imdur] 30 mg PO DAILY 01/16/17 03/22/18 Ferrous Sulfate [Iron (65 MG 325 mg PO BID 09/17/17 03/22/18 Elemental)] Ergocalciferol [Vitamin D2 50,000 unit PO Q7D 03/22/18 03/22/18 (DRISDOL)] Gabapentin [Neurontin] 100 mg PO BID 03/22/18 03/22/18 Insulin Glargine [Lantus] 10 unit SQ HS 03/22/18 03/22/18 Potassium Chloride ER [K-Dur 20] 20 meq PO DAILY 03/22/18 03/22/18 Ubidecarenone [Co Q-10] 200 mg PO DAILY 03/22/18 03/22/18 Warfarin Sodium [Coumadin] 2 mg PO HS 03/22/18 03/22/18 Previous Rx's Medication Instructions Recorded Levothyroxine Sodium [Synthroid] 88 mcg PO DAILY@0630 tab 09/25/17 traMADol HCL [Ultram] 50 mg PO Q12H PRN #6 tablet 09/25/17 Cephalexin [Keflex] 500 mg PO Q8HR 5 Days #15 cap 03/29/18 Furosemide [Lasix] 40 mg PO TID #90 tab 03/29/18 Nystatin 100,000 Unit/ml Susp 500,000 unit PO QID 7 Days #21 cup 03/29/18 [Mycostatin Oral Susp] predniSONE 10 mg PO DIRECTED #30 tab 03/29/18 Allergies Allergy/AdvReac Type Severity Reaction Status Date / Time iron Allergy Rash/Hives Verified 02/09/19 23:36 Sulfa (Sulfonamide Allergy Rash/Hives Verified 02/09/19 23:36 Antibiotics) Tetanus Vaccines and Toxoid Allergy Swelling Verified 02/09/19 23:36 Review of Systems ROS Statement: Those systems with pertinent positive or pertinent negative responses have been documented in the HPI. ROS Other: All systems not noted in ROS Statement are negative. Past Medical History Past Medical History: Atrial Fibrillation, Blood Disorder, Heart Failure, COPD, Diabetes Mellitus, Deep Vein Thrombosis (DVT), GERD/Reflux, Hyperlipidemia, Hypertension, Osteoarthritis (OA), Renal Disease, Rheumatoid Arthritis (RA), Sleep Apnea/CPAP/BIPAP, Thyroid Disorder Additional Past Medical History / Comment(s): migraines,gout "bleeding in kidney",uti-ecoli 04-30-16 per micro", gout. KIDNEY DISEASE,. ANEMIA. History of Any Multi-Drug Resistant Organisms: None Reported Past Surgical History: Heart Catheterization, Hysterectomy, Joint Replacement, Orthopedic Surgery Additional Past Surgical History / Comment(s): rt knee replacement, heel spur left foot, sanjana cataracts,cystoscopy Past Anesthesia/Blood Transfusion Reactions: No Reported Reaction Past Psychological History: No Psychological Hx Reported Smoking Status: Former smoker Past Alcohol Use History: None Reported Past Drug Use History: None Reported - Past Family History Mother Family Medical History: Renal Disease Father Family Medical History: Coronary Artery Disease (CAD) General Exam - General Exam Comments Initial Comments: Physical Exam GENERAL: Chronically ill-appearing, morbidly obese, deconditioned HENT: Normocephalic, Atraumatic. EYES: PERRL, EOMI PULMONARY: Wheezing in all lung whitt Oxygen-dependent CARDIOVASCULAR: There is a regular rate and rhythm without any murmurs gallops or rubs. ABDOMEN: Soft and nontender with normal bowel sounds. SKIN: Bilateral lower extremities with chronic skin changes, edema and erythema : Normal external genitalia NEUROLOGIC: Patient is alert and oriented x3. Moving all extremities spontaneously MUSCULOSKELETAL: Bilateral lower extremity edema PSYCHIATRIC: Normal psychiatric evaluation. Limitations: no limitations Course Vital Signs 02/09/19 02/10/19 02/10/19 23:29 01:00 01:30 Temperature 99.7 F H Pulse Rate 82 125 H Respiratory 18 16 29 H Rate Blood Pressure 104/66 101/82 112/59 O2 Sat by Pulse 98 68 L 20 L Oximetry 02/10/19 02/10/19 02/10/19 03:10 04:10 05:00 Temperature Pulse Rate 149 H 154 H 144 H Respiratory 11 L 15 22 Rate Blood Pressure 114/79 O2 Sat by Pulse 97 99 98 Oximetry 02/10/19 02/10/19 05:50 07:00 Temperature Pulse Rate 135 H 127 H Respiratory 21 20 Rate Blood Pressure 106/63 O2 Sat by Pulse 99 98 Oximetry EKG Findings - EKG Comments: EKG Findings:: EKG was obtained due to development of of tachycardia, EKG obtained at 4:39 AM, rate is 163 rhythm is A. fib with RVR, QS is narrow 60 QTC is 490 there is no acute ST elevations or depressions no evidence of acute ischemia or infarction Medical Decision Making - Medical Decision Making The patient was seen and evaluated history is obtained from the patient excited initially patient complained only of dysuria and a urinalysis was obtained which did confirm a urinary tract infection. Rocephin was ordered for treatment of urinary tract infection. Upon further questioning with her in the room patient's complaining of generalized malaise, [place]. Feeling unwell. Additional labs were ordered Labs resulted with profound leukocytosis this is a unknown origin patient has a relatively benign physical exam aside from her chronic changes of her bilateral lower extremities. Patient was reevaluated and noted to be in A. fib with RVR. Patient does have a history of A. fib. She is on Coumadin. At this time decision was made to start Cardizem for rate control. Additional labs were ordered as well as IV Cardizem. Patient HR improving with Cardizem, has decreased from the 160s to the 120s. Patient care was discussed with Dr. Redd who agrees with plan for admission for sepsis likely secondary to UTI with profound leukocytosis and development of A. fib with RVR - Lab Data Result diagrams: 02/10/19 01:10 02/10/19 01:10 Lab Results 02/10/19 02/10/19 02/10/19 Range/Units 01:00 01:10 01:10 WBC 42.4 H (3.8-10.6) k/uL RBC 4.49 (3.80-5.40) m/uL Hgb 13.7 (11.4-16.0) gm/dL Hct 44.1 (34.0-46.0) % MCV 98.3 (80.0-100.0) fL MCH 30.5 (25.0-35.0) pg MCHC 31.0 (31.0-37.0) g/dL RDW 14.8 (11.5-15.5) % Plt Count 189 (150-450) k/uL Neutrophils % (Manual) 95 % Band Neutrophils % 3 % Lymphocytes % (Manual) 1 % Monocytes % (Manual) 1 % Neutrophils # (Manual) 41.50 H (1.3-7.7) k/uL Lymphocytes # (Manual) 0.42 L (1.0-4.8) k/uL Monocytes # (Manual) 0.42 (0-1.0) k/uL Nucleated RBCs 0 (0-0) /100 WBC Manual Slide Review Performed Sodium 137 (137-145) mmol/L Potassium 4.6 (3.5-5.1) mmol/L Chloride 96 L (98-107) mmol/L Carbon Dioxide 27 (22-30) mmol/L Anion Gap 14 mmol/L BUN 81 H (7-17) mg/dL Creatinine 1.56 H (0.52-1.04) mg/dL Est GFR (CKD-EPI)AfAm 36 (>60 ml/min/1.73 sqM) Est GFR (CKD-EPI)NonAf 31 (>60 ml/min/1.73 sqM) Glucose 199 H (74-99) mg/dL Calcium 10.1 (8.4-10.2) mg/dL Total Bilirubin 1.1 (0.2-1.3) mg/dL AST 23 (14-36) U/L ALT 20 (9-52) U/L Alkaline Phosphatase 101 (38-126) U/L Total Protein 7.2 (6.3-8.2) g/dL Albumin 4.3 (3.5-5.0) g/dL Urine Color Yellow Urine Appearance Cloudy H (Clear) Urine pH 5.0 (5.0-8.0) Ur Specific [place] 1.013 (1.001-1.035) Urine Protein Negative (Negative) Urine Glucose (UA) Negative (Negative) Urine Ketones Negative (Negative) Urine Blood Moderate H (Negative) Urine Nitrite Negative (Negative) Urine Bilirubin Negative (Negative) Urine Urobilinogen <2.0 (<2.0) mg/dL Ur Leukocyte Esterase Large H (Negative) Urine RBC 31 H (0-5) /hpf Urine WBC 34 H (0-5) /hpf Ur Squamous Epith Cells 3 (0-4) /hpf Hyaline Casts 2 (0-2) /lpf Urine Mucus Rare H (None) /hpf Critical Care Time Critical Care Time: Yes Total Critical Care Time: 45 Critical Care Time: Critical Care Time Critical care time was exclusive of separately billable procedures and treating other patients and teaching time. Critical care was necessary to treat or prevent imminent or life-threatening deterioration. Given the critical condition in which the patient arrived, the patient was immediately assessed by myself and the nurse, and cardiac monitoring initiated due to the potential for rapid decompensation of the patient's clinical condition. During the course of the patients stay, I spent a considerable amount of time at the bedside performing serial re-evaluations of the patient's hemodynamic and clinical status because of the recognized potential threat to life or limb in this condition. I then had a chance to review not only all of the available current laboratory and radiographic studies obtained today, but I also reviewed old records available to me at the time. Additionally, any ancillary information available including pit and auxiliaries supervisor records were reviewed. Sequential vital signs were obtained. Disposition Clinical Impression: Anemia, Myxedema, Urinary tract infection, Atrial fibrillation with rapid fabienne tricular response Disposition: ADMITTED IP TO THIS [facility] Condition: Serious
[2019-02-10] MEDS ORDERED: DILTIAZEM 5 MG/ML 5 ML VIAL IVP STA (04:41)
[2019-02-10] MEDS ORDERED: DILTIAZEM 125 MG in SODIUM CHLORIDE 0.9% 100 ML IV SCH ×2 (04:45→10:00)
[2019-02-10] MEDS ORDERED: NALOXONE 0.4 MG/ML 1 ML VIAL IV PRN (06:26)
[2019-02-10 08:57] LABS: Partial Thromboplastin Time 22.6 sec (22.0-30.0); Prothrombin Time 10.3 sec (9.0-12.0)
[2019-02-10 09:51] LABS: Glucose,Whole Blood 203 mg/dL (75-99)
[2019-02-10] MEDS ORDERED: ISOSORBIDE MONONITRATE ER 30 MG TAB.ER.24H PO SCH ×2 (11:00)
[2019-02-10] MEDS ORDERED: FUROSEMIDE 40 MG TAB PO SCH (11:00)
[2019-02-10] MEDS ORDERED: VANCOMYCIN IV PER PHARMACY 1 EACH MISC MISCELLANE PRN (11:18)
[2019-02-10] MEDS ORDERED: VANCOMYCIN 1,000 MG in SODIUM CHLORIDE 0.9% 250 ML IVPB STA (11:18)
[2019-02-10] MEDS: INSULIN ASPART (NovoLOG) 100 UNIT/ML VIAL SQ SCH ×2 (11:21→17:59)
[2019-02-10] MEDS ORDERED: ENOXAPARIN 40 MG/0.4 ML SYRINGE SQ STA (11:26)
[2019-02-10] MEDS: ACETAMINOPHEN TAB 325 MG TAB PO PRN (11:27)
--- NOTE | 2019-02-10 11:35 | P.HPIM ---
History of Present Illness H&P Date: 02/10/19 Chief Complaint: weakness, chills Tamar Dominguez is an 78 yo F with PMH significant for diastolic CHF, A fib, T2DM, hx DVT, hypothyroid who presented to the ED with weakness, chills and malaise. History obtained via pt and son. Son states that pt ran out of her metolazone a few days ago and has been having more difficulty ambulating and feeling more weak. She had not been able to walk to the bathroom and had been noticing increasing cough. Yesterday pt began to experience chills and nausea in addition to worsening weakness. Due to this she came in to the ED. No sick co ntacts at home. Son has been wrapping wound on LLE which he states had become more red and tender over the same interval. In the ED, temp on admission 99.7, BP stable, HR in 150s. WBC 40k, Cr 1.5, INR subtherpeutic at 1.0, CXR with interstitial prominence, UA with large LE and nitrite. Trop negative. Pt given dose of rocephin and started on cardizem for RVR. Review of Systems All systems: negative Constitutional: Reports chills, Reports fever, Reports lethargy, Reports malaise Eyes: denies blurred vision, denies pain Ears, nose, mouth and throat: Reports headache, Denies sore throat Cardiovascular: Reports dyspnea on exertion, Reports orthopnea, Denies chest pain, Denies shortness of breath Respiratory: Reports cough Gastrointestinal: Reports nausea, Denies abdominal pain, Denies diarrhea, Denies vomiting Genitourinary: Denies dysuria, Denies hematuria Musculoskeletal: Denies myalgias Integumentary: Denies pruritus, Denies rash Neurological: Denies numbness, Denies weakness Psychiatric: Denies anxiety, Denies depression Endocrine: Denies fatigue, Denies weight change Past Medical History Past Medical History: Atrial Fibrillation, Heart Failure, COPD, Diabetes Mellitus, Deep Vein Thrombosis (DVT), GERD/Reflux, Hyperlipidemia, Hypertension, Osteoarthritis (OA), Pneumonia, Renal Disease, Respiratory Disorder, Rheumatoid Arthritis (RA), Sleep Apnea/CPAP/BIPAP, Thyroid Disorder Additional Past Medical History / Comment(s): Chronic respiratory failure, home O2 at 2L/NC, possible mild pulmonary HTN, JOSR but no longer uses her device, lower extremity edema/redness/cellulitis-legs currently wrapped by son-states blisters on both legs and leakage from L leg, pt states she currently has a decubitus on her coccyx, NIDDM type II, neuropathy bilateral hands/feet, CKD stage IV, pt states she has had "bleeding in the kidneys" in the past, anemia, UTI with sepsis, incontinent of urine and occasionally stool, migraines, gout, hypothyroid, vertigo. History of Any Multi-Drug Resistant Organisms: None Reported Past Surgical History: Heart Catheterization, Hysterectomy, Joint Replacement, Orthopedic Surgery Additional Past Surgical History / Comment(s): Cardiac cath 2017-treated medically, R total knee replacement, L foot heel spur, sanjaan cataracts with lens implants, cystoscopy, EGD, colonoscopy. Past Anesthesia/Blood Transfusion Reactions: No Reported Reaction Smoking Status: Former smoker - Past Family History Mother Family Medical History: Renal Disease Father Family Medical History: Coronary Artery Disease (CAD) Medications and Allergies Home Medications Medication Instructions Recorded Confirmed Type Albuterol Inhaler [Ventolin Hfa 2 puff INHALATION RT-Q4H PRN 04/29/16 02/10/19 History Inhaler] Meclizine [Antivert] 25 mg PO TID 07/24/16 02/10/19 History Isosorbide Mononitrate ER [Imdur] 30 mg PO DAILY 01/16/17 02/10/19 History Potassium Chloride ER [K-Dur 20] 40 meq PO DAILY 03/22/18 02/10/19 History Ubidecarenone [Co Q-10] 200 mg PO DAILY 03/22/18 02/10/19 History Warfarin Sodium [Coumadin] 2 mg PO HS 03/22/18 02/10/19 History Furosemide [Lasix] 40 mg PO TID #90 tab 03/29/18 02/10/19 Rx Allopurinol [Zyloprim] 300 mg PO DAILY 02/10/19 02/10/19 History Atorvastatin [Lipitor] 40 mg PO HS 02/10/19 02/10/19 History Levothyroxine Sodium [Synthroid] 75 mcg PO DAILY 02/10/19 02/10/19 History Liothyronine Sodium [Cytomel] 5 mcg PO DAILY 02/10/19 02/10/19 History Metolazone [Zaroxolyn] 2.5 mg PO DAILY 02/10/19 02/10/19 History sitaGLIPtin [Januvia] 100 mg PO DAILY 02/10/19 02/10/19 History traMADol HCL [Ultram] 50 mg PO DAILY PRN 02/10/19 02/10/19 History Allergies Allergy/AdvReac Type Severity Reaction Status Date / Time iron Allergy Rash/Hives Verified 02/10/19 07:49 Sulfa (Sulfonamide Allergy Rash/Hives Verified 02/10/19 07:49 Antibiotics) Tetanus Vaccines and Toxoid Allergy Swelling Verified 02/10/19 07:49 Physical Exam Vitals: Vital Signs Temp Pulse Resp BP Pulse Ox 02/10/19 10:00 98.3 F 142 H 16 98/67 96 02/10/19 07:00 127 H 20 106/63 98 02/10/19 05:50 135 H 21 99 02/10/19 05:00 144 H 22 98 02/10/19 04:10 154 H 15 99 02/10/19 03:10 149 H 11 L 114/79 97 02/10/19 01:30 29 H 112/59 20 L 02/10/19 01:00 125 H 16 101/82 68 L 02/09/19 23:29 99.7 F H 82 18 104/66 98 Intake and Output 02/09/19 02/10/19 02/10/19 22:59 06:59 14:59 Intake Total 2.417 100 Output Total 100 Balance 2.417 0 Intake: IV 100 Sodium Chloride 0.9% 1, 100 000 ml @ 100 mls/hr IV . Q10H [facility] Rx#:[id number] Intake, IV Titration 2.417 Amount Diltiazem 125 mg In 2.417 Sodium Chloride 0.9% 100 ml @ Per Protocol IV .[facility]0M [facility] Rx#:[id number] Output: Urine 100 Other: Weight 120.202 kg General: well nourished, well developed, resting in NAD. Vitals reviewed Eyes: PERRL, EOMI, conjunctiva normal HENT: normocephalic, mucus membranes moist Neck: supple, no JVD Lungs: normal respiratory effort, no wheezes or rales CV: Irregularly irregular, no murmur. Peripheral pulses 1+ Abdomen: soft, nondistended, no organomegaly Lymph: no cervical or axillary LAD Skin: RLE with 2+ edema. LLE with 3+ edema, erythema and cracked skin up to mid fall. There is a 3x2 cm region of fissure with scant serous drainage and surrounding erythema Neuro: A&Ox3, normal mood and affect Results CBC & Chem 7: 02/10/19 01:10 02/10/19 01:10 Labs: Abnormal Lab Results - Last 24 Hours (Table) 02/10/19 02/10/19 02/10/19 Range/Units 01:00 01:10 01:10 WBC 42.4 H (3.8-10.6) k/uL Neutrophils # (Manual) 41.50 H (1.3-7.7) k/uL Lymphocytes # (Manual) 0.42 L (1.0-4.8) k/uL Chloride 96 L (98-107) mmol/L BUN 81 H (7-17) mg/dL Creatinine 1.56 H (0.52-1.04) mg/dL Glucose 199 H (74-99) mg/dL POC Glucose (mg/dL) (75-99) mg/dL Urine Appearance Cloudy H (Clear) Urine Blood Moderate H (Negative) Ur Leukocyte Esterase Large H (Negative) Urine RBC 31 H (0-5) /hpf Urine WBC 34 H (0-5) /hpf Urine Mucus Rare H (None) /hpf 02/10/19 Range/Units 09:50 WBC (3.8-10.6) k/uL Neutrophils # (Manual) (1.3-7.7) k/uL Lymphocytes # (Manual) (1.0-4.8) k/uL Chloride (98-107) mmol/L BUN (7-17) mg/dL Creatinine (0.52-1.04) mg/dL Glucose (74-99) mg/dL POC Glucose (mg/dL) 203 H (75-99) mg/dL Urine Appearance (Clear) Urine Blood (Negative) Ur Leukocyte Esterase (Negative) Urine RBC (0-5) /hpf Urine WBC (0-5) /hpf Urine Mucus (None) /hpf Microbiology - Last 24 Hours (Table) 02/10/19 01:00 Urine Culture - Preliminary Urine,Clean Catch Thrombosis Risk Factor Assmnt - Choose All That Apply Any of the Below Risk Factors Present?: Yes Each Factor Represents 1 point: Abnormal pulmonary function (COPD), Obesity (BMI >25), Serious lung disease incl. pneumonia (< 1month), Swollen legs (current) Other Risk Factors: Yes Each Risk Factor Represents 3 Points: Age 75 years or older, History of DVT/PE Other congenital or acquired thrombophilia - If yes, enter type in comment: No Thrombosis Risk Factor Assessment Total Risk Factor Score: 10 Thrombosis Risk Factor Assessment Level: High Risk Assessment and Plan (1) Severe sepsis Current Visit: Yes Status: Acute Code(s): A41.9 - SEPSIS, UNSPECIFIED O RGANISM; R65.20 - SEVERE SEPSIS WITHOUT SEPTIC SHOCK SNOMED Code(s): 45390673 (2) Acute on chronic diastolic (congestive) heart failure Current Visit: Yes Status: Acute Code(s): I50.33 - ACUTE ON CHRONIC DIASTOLIC (CONGESTIVE) HEART FAILURE SNOMED Code(s): 335779835 (3) Cellulitis of left lower extremity Current Visit: Yes Status: Acute Code(s): L03.116 - CELLULITIS OF LEFT LOWER LIMB SNOMED Code(s): 051597177 (4) Acute kidney injury Current Visit: Yes Status: Acute Code(s): N17.9 - ACUTE KIDNEY FAILURE, UNSPECIFIED SNOMED Code(s): 38635333 (5) Subtherapeutic international normalized ratio (INR) Current Visit: Yes Status: Acute Code(s): R79.1 - ABNORMAL COAGULATION PROFILE SNOMED Code(s): 796482166 (6) Atrial fibrillation with rapid ventricular response Current Visit: Yes Status: Acute Code(s): I48.91 - UNSPECIFIED ATRIAL FIBRILLATION SNOMED Code(s): 744998978830818 (7) Leukocytosis Current Visit: Yes Status: Acute Code(s): D72.829 - ELEVATED WHITE BLOOD CELL COUNT, UNSPECIFIED SNOMED Code(s): 098821988 (8) Acute cystitis Current Visit: Yes Status: Acute Code(s): N30.00 - ACUTE CYSTITIS WITHOUT HEMATURIA SNOMED Code(s): 90544405 (9) Type 2 diabetes mellitus Current Visit: Yes Status: Acute Code(s): E11.9 - TYPE 2 DIABETES MELLITUS WITHOUT COMPLICATIONS SNOMED Code(s): 05165264 Plan: 1. Severe sepsis. SIRS 3/4 positive, suspect secondary to cellulitis. Blood cultures drawn. Attempt to obtain wound culture. Start zosyn and vancomycin. Consult ID 2. Atrial fibrillation with RVR. Secondary to sepsis. Start cardizem drip. Cardiology consulted 3. Acute exacerbation of diastolic CHF. Missed metolazone for last few days and increased LE swelling. Switch lasix to 40 mg IV q8h. Continue metolazone. Strict I/Os. Obtain BNP 4. Subtherapeutic INR. Check LLE US for DVT. Bridge with lovenox today. Pharmacy to dose 5. T2DM. Accucheck/sliding scale. Hold januvia 6. CAD. Continue Statin and imdur 7. Hypothyroidism. Continue synthroid DVT prophylaxis: lovenox/coumadin
[2019-02-10] MEDS ORDERED: VANCOMYCIN 2,000 MG in SODIUM CHLORIDE 0.9% 500 ML 500 ML IVPB ONE (12:00)
[2019-02-10] MEDS: PIPERACILLIN-TAZOBACTAM 3.375 GM in SODIUM CHLORIDE 0.9% 100 ML IVPB SCH ×2 (12:19→20:19)
[2019-02-10] MEDS ORDERED: METOPROLOL TARTRATE 25 MG TAB PO SCH (12:30)
[2019-02-10] MEDS ORDERED: SODIUM CHLORIDE 0.9% 1,000 ML IV ONE ×2 (13:00→14:28)
[2019-02-10] MEDS ORDERED: IPRATROPIUM-ALBUTEROL 3 ML NEB INHALATION PRN (14:15)
--- NOTE | 2019-02-10 14:20 | US ---
EXAMINATION TYPE: US venous doppler duplex LE LT DATE OF EXAM: 02/10/2019 2:07 PM COMPARISON: NONE CLINICAL HISTORY: swelling, pain. Edema patient on blood thinners. SIDE PERFORMED: Left TECHNIQUE: The lower extremity deep venous system is examined utilizing real time linear array sonog terell with graded compression, doppler sonography and color-flow sonography. VESSELS IMAGED: External Iliac Vein (EIV) Common Femoral Vein Deep Femoral Vein Greater Saphenous Vein * Femoral Vein Popliteal Vein Small Saphenous Vein * Proximal Calf Veins (* superficial vessels Left Leg: Negative for DVT Grayscale, color doppler, spectral doppler imaging performed of the deep veins of the left lower extr emity. There is normal flow, compressibility, vascular waveforms. Moderate diffuse subcutaneous saravanan ma seen towards the end of the study at and below knee. IMPRESSION: No ultrasound evidence for acute DVT in the left lower extremity.
[2019-02-10] MEDS: APIXABAN 5 MG TAB PO SCH ×2 (15:20→20:19)
[2019-02-10] MEDS: traMADol 50 MG TAB PO PRN (15:25)
[2019-02-10 15:58] LABS: T4, Free (Free Thyroxine) 1.35 ng/dL (0.78-2.19)
[2019-02-10] MEDS ORDERED: FUROSEMIDE 10 MG/ML 4 ML VIAL IV SCH (16:00)
[2019-02-10] MEDS: HYDROCORTISONE SUCCINATE 100 MG/2 ML VIAL IV SCH (16:06)
[2019-02-10] MEDS ORDERED: SODIUM CHLORIDE 0.9% 500 ML 500 ML IV ONE (16:30)
--- NOTE | 2019-02-10 17:22 | ECHOF ---
Referral Reason:afib MEASUREMENTS -------- HEIGHT: 165.1 cm WEIGHT: 120.2 kg BP: 88/61 RVIDd: 3.1 cm (< 3.3) IVSd: 1.5 cm (0.6 - 1.1) LVIDd: 3.2 cm (3.9 - 5.3) LVPWd: 1.5 cm (0.6 - 1.1) IVSs: 1.6 cm LVIDs: 2.9 cm LVPWs: 1.5 cm LA Diam: 3.3 cm (2.7 - 3.8) LAESV Index (A-L): 33.85 ml/m Ao Diam: 3.0 cm (2.0 - 3.7) AV Cusp: 1.9 cm (1.5 - 2.6) MV EXCURSION: 10.065 mm (> 18.000) MV EF SLOPE: 44 mm/s (70 - 150) EPSS: 0.5 cm RAP: 15.00 mmHg RVSP: 45.66 mmHg FINDINGS -------- Atrial fibrillation. This was a technically difficult study with suboptimal views. The left ventricular size is normal. There is moderate concentric left ventricular hypertrophy. O verall left ventricular systolic function is low-normal with, an EF between 50 - 55 %. The right ventricle is normal in size. LA is midly dilated 29-33ml/m2. The right atrium is normal in size. 5 ml of Lumason was utilized for enhancement of images. There is mild aortic valve sclerosis. The mitral valve leaflets are mildly thickened. Moderate mitral annular calcification present. Mi ld mitral regurgitation is present. The peak and mean MV gradients are 17.92mmHg 5.98mmHg as measu red by doppler. Mild mitral stenosis. Mild tricuspid regurgitation present. There is mild to moderate pulmonary hypertension. The right ventricular systolic pressure, as measured by Doppler, is 45.66mmHg. Trace/mild (physiologic) pulmonic regurgitation. The aortic root size is normal. The inferior vena cava is dilated with no significant inspiratory collapse which is consistent estima kathie right atrial pressure of >15 mmHg. There is no pericardial effusion. CONCLUSIONS -------- 1. Atrial fibrillation. 2. This was a technically difficult study with suboptimal views. 3. The left ventricular size is normal. 4. There is moderate concentric left ventricular hypertrophy. 5. Overall left ventricular systolic function is low-normal with, an EF between 50 - 55 %. 6. The right ventricle is normal in size. 7. LA is midly dilated 29-33ml/m2. 8. The right atrium is normal in size. 9. 5 ml of Lumason was utilized for enhancement of images. 10. There is mild aortic valve sclerosis. 11. The mitral valve leaflets are mildly thickened. 12. Moderate mitral annular calcification present. 13. Mild mitral regurgitation is present. 14. The peak and mean MV gradients are 17.92mmHg 5.98mmHg as measured by doppler. 15. Mild mitral stenosis. 16. There is mild to moderate pulmonary hypertension. 17. The right ventricular systolic pressure, as measured by Doppler, is 45.66mmHg. 18. Trace/mild (physiologic) pulmonic regurgitation. 19. The aortic root size is normal. 20. The inferior vena cava is dilated with no significant inspiratory collapse which is consistent es timated right atrial pressure of >15 mmHg. 21. There is no pericardial effusion. TAPE SEWING MACHINE OPERATOR: Kathryn Jones RDCS
[2019-02-10] MEDS: SODIUM CHLORIDE 0.9% 1,000 ML IV SCH (17:30)
[2019-02-10 17:44] LABS: Glucose,Whole Blood 213 mg/dL (75-99)
[2019-02-10] MEDS: NOREPINEPHRINE 4 MG in SODIUM CHLORIDE 0.9% 250 ML IV SCH (18:00)
[2019-02-10] MEDS ORDERED: WARFARIN 5 MG TAB PO ONE (18:00)
--- NOTE | 2019-02-10 18:35 | CONS ---
CONSULTATION Mrs. Dominguez is an 78-year-old female with known history of diabetes mellitus, history of paroxysmal atrial fibrillation in the past, history of hypertension, hyperlipidemia, type 2 diabetes mellitus, prior episode of congestive heart failure with preserved systolic function. She presented with symptoms of progressive fatigue, dyspnea, peripheral edema and evidence of urinary tract infection. Cardiology consultation was requested because of episode of atrial fibrillation, rapid ventricular response. The patient is not very active physically. She has been complaining of progressive fatigue and dyspnea. She has episodes of constant chest discomfort. She underwent cardiac catheterization in July of 2016 that revealed mild obstructive disease in the LAD and the right coronary artery. In the past, her left ventricular systolic function was preserved, and her most recent echocardiogram available was completed in 2017. Patient denies any clear PND or orthopnea, but she has peripheral edema. She had some fever at home and cough. She had symptoms of urinary tract infection. Her coronary risk factors are remarkable for the history of hypertension, hyperlipidemia and diabetes mellitus. She is a nonsmoker. MEDICATION: Her medications at home included: 1. Lipitor 40 mg daily. 2. Lasix 40 mg 3 times a day. 3. Isosorbide mononitrate 30 mg daily. 4. Synthroid. 5. Cytomel. 6. Antivert. 7. Zaroxolyn 2.5 mg daily. 8. Potassium. 9. Coenzyme Q10. 10.Coumadin. 11.Januvia. 12.Ultram. REVIEW OF SYSTEMS: RESPIRATORY SYSTEM: She had dyspnea on exertion. She has cough. History of chronic obstructive lung disease. GI SYSTEM: No recent GI bleeding. No peptic ulcer disease. SYSTEM: She has history of urinary tract infection and evidence of urinary tract infection on this admission. NERVOUS SYSTEM: No history of stroke or seizure. PHYSICAL EXAMINATION: She is an 78-year-old female, obese, alert, oriented, in no apparent distress. Blood pressure running in the 90s to 100. Heart rate in the 120s to 130s. HEAD: Normocephalic. EYES: Sclerae anicteric. NECK: No bruit. LUNGS: Clear to auscultation. HEART: Irregularly irregular. S1, S2. No S3. Systolic ejection murmur. No diastolic murmur. No rub. ABDOMEN: Soft, obese, nontender. Positive bowel sounds. No organomegaly. EXTREMITIES: Bilateral edema with evidence of erythema as well as discomfort. She has serous drainage and erythema with cracked skin bilaterally. LAB DATA: EKG revealed atrial fibrillation with rapid ventricular response and nonspecific ST-T wave changes. INR is 1.0. White blood cells of 42,400. BUN and creatinine of 81 and 1.56. Potassium 4.6. NT-proBNP of 1000. Troponin 0.021. IMPRESSION: 1. Evidence of urinary tract infection. 2. Possible cellulitis. 3. Atrial fibrillation with rapid ventricular response. Patient had prior history of atrial fibrillation but it was paroxysmal. It does not appear that she is compliant with the Coumadin. Her INR is 1.0. 4. History of hypertension. 5. Hyperlipidemia. 6. Diabetes mellitus. 7. Obesity. 8. Chronic kidney disease. RECOMMENDATIONS: From the cardiac standpoint, I see no evidence of congestive heart failure. The patient is supine without any dyspnea and her NT-proBNP is normal. I will put her on metoprolol tartrate 25 mg twice a day to control her ventricular response. I will switch her from Coumadin to Eliquis for better compliance. The patient has been on amiodarone in the past, and it is unclear to me when it was stopped. I will obtain echocardiogram with Doppler. Will hold on the metolazone at this time until her blood pressure stabilizes. Depending on her progress, further recommendations will be made. Thank you for this consult. Will follow with you. MMODL / IJN: [id number] /
[2019-02-10] MEDS ORDERED: INSULIN REGULAR 100 UNIT in SODIUM CHLORIDE 0.9% 100 ML IV SCH (18:45)
[2019-02-10 19:20] LABS: Glucose,Whole Blood 237 mg/dL (75-99)
[2019-02-10] MEDS: IPRATROPIUM-ALBUTEROL 3 ML NEB INHALATION SCH (19:45)
[2019-02-10 19:49] LABS: Glucose,Whole Blood 231 mg/dL (75-99)
[2019-02-10] MEDS: ATORVASTATIN 40 MG TAB PO SCH (20:19)
[2019-02-10 21:16] LABS: Glucose,Whole Blood 194 mg/dL (75-99)
[2019-02-10] MEDS: DOCUSATE 100 MG CAP PO SCH (21:30)
--- NOTE | 2019-02-10 21:56 | CONS ---
CONSULTATION PULMONARY/CRITICAL CARE CONSULTATION: DATE OF SERVICE: 02/10/2019 This is an 78-year-old female who typically sees Dr. Linnea Alonso. She presented to the emergency room yesterday with complaints of weakness and bladder pain. The patient came in with her family. The weakness had apparently been going on for some time and she was concerned about the possibility of a bladder infection, which she has had before. In addition, she was having some shaking chills earlier in the day. She could not get warm. She thought she might have a fever. She apparently was denying any chest pain or chest discomfort. There was no shortness of breath or difficulty breathing. No coughing or wheezing. No nausea, vomiting or diarrhea. She also was thought to have some cellulitis of the left lower extremity, and for that reason, the combination of left leg cellulitis or bilateral lower extremity cellulitis, possible urinary tract infection/urosepsis and discovery of atrial fibrillation with RVR, the patient was admitted. She was initially in the ER for a number of hours and admitted to the ICU as an overflow patient. I was consulted because the patient has become a bit hypotensive. Currently the patient is not on Cardizem. She was previously on Cardizem. She did get some metoprolol by the recreation supervisor. Currently on oxygen at 2 L by nasal cannula and saline at 100 mL/hour. She is getting a one-liter fluid bolus. She was placed on vancomycin and Zosyn. Dr. Kim and myself were consulted. She apparently has a history of heart failure, hypertension, DVT, chronic kidney disease, diabetes, COPD, previous tobacco use and sleep apnea syndrome, maintained on CPAP. CURRENT HOME MEDICATIONS: Current home medications include: 1. Albuterol inhaler. 2. Insulin. 3. Antivert. 4. Imdur. 5. Iron. 6. Drisdol. 7. Neurontin. 8. Lantus insulin. 9. Potassium chloride. 10.Coenzyme Q. 11.Coumadin, recently switched to a factor Xa inhibitor. 12.Levothyroxine. 13.Tramadol. 14.Cephalexin. 15.Lasix. 16.Nystatin. 17.Prednisone. ALLERGIES: ALLERGIES include: 1. IRON. 2. SULFA. 3. TETANUS VACCINE. MEDICAL HISTORY: Medical history includes: 1. Atrial fibrillation. 2. CHF. 3. COPD. 4. Diabetes. 5. DVT. 6. GERD. 7. Hyperlipidemia. 8. Hypertension. 9. DJD. 10.Chronic kidney disease. 11.Rheumatoid arthritis. 12.Sleep apnea syndrome. 13.Hypothyroidism. 14.She apparently also has a history of gout. 15.E coli UTI. 16.Chronic anemia. SURGICAL HISTORY: Surgical history includes multiple procedures, includin. Heart catheterization. 2. Hysterectomy. 3. Joint replacement. 4. Orthopedic surgery. 5. Right knee replacement. 6. Heel spur, left foot. 7. Bilateral cataract surgery. 8. Cystoscopy. SOCIAL HISTORY: Positive for previous tobacco use. She has been a heavy smoker in the past. No alcohol use. No illicit drug use. FAMILY HISTORY: Positive for father with CAD and mother with chronic renal disease. REVIEW OF SYSTEMS: CONSTITUTIONAL: Weakness, fever and chills. NEUROLOGIC: Negative. HEENT: Negative. CARDIOVASCULAR: Negative. PULMONARY: Negative. GI: Negative. : Urinary tract infection/urosepsis. RHEUMATOLOGIC: Negative. IMMUNOLOGIC: Negative. ENDOCRINOLOGIC: Negative. PHYSICAL EXAMINATION: VITAL SIGNS: Current vital signs are reviewed. Temperature is 98.3, heart rate 131, respiratory rate 31, blood pressure 88/61 with a mean of 70, 2-liter saturation 95%. GENERAL: Appears in no acute distress. She is awake and alert. She is tachycardic. HEENT: HEENT examination is grossly unremarkable. Nasal oxygen noted. NECK: Supple. Full range of motion. No adenopathy or thyromegaly. Neck veins are flat. CARDIOVASCULAR: Cardiovascular examination reveals irregular rhythm and rate. Heart rate 131. S1, S2 normal. She appears to be in atrial fibrillation. No clear-cut murmur. Heart sounds are distant. LUNGS: A few scattered rhonchi. No wheezes or crackles. Breath sounds equal. ABDOMEN: Obese. Bowel sounds are heard. EXTREMITIES: Some diffuse erythema. Mild edema. No cyanosis or clubbing. SKIN: Without rash. NEUROLOGIC: Neurologic examination is brief but nonfocal. LAB DATA: Reviewed. White count 42.4, hemoglobin 13.7, hematocrit 44.1, platelet count 189,000. PT, INR, PTT normal. Sodium, potassium normal. Chloride 96, CO2 27. Anion gap 14. BUN and creatinine were 81 and 1.56. Lactic acid 2.7. N-terminal proBNP 1000. Troponin 0.021. Urine is cloudy, blood moderate, large leukocyte esterase, urine RBCs 31, urine WBCs 34. Microbiology is currently pending. Medications are reviewed. Currently she is on Eliquis as well as Zosyn and vancomycin. ASSESSMENT: 1. Urosepsis with hypotension. 2. History of congestive heart failure. 3. Obesity. 4. Hypertension. 5. Deep venous thrombosis by history. 6. Chronic kidney disease. 7. Diabetes mellitus. 8. Chronic obstructive pulmonary disease from previous tobacco use. 9. History of sleep apnea syndrome. 10.Atrial fibrillation with rapid ventricular response. 11.Bilateral lower extremity cellulitis, left leg worse than right. PLAN: Please see my orders. Additional recommendations and suggestions are forthcoming. Will add some updrafts. The patient will be also given some hydrocortisone 100 mg q.8. Additional recommendations and suggestions are forthcoming. Looking at her home medications, she is basically just on a rescue inhaler and nothing for maintenance. MMODL / IJN: [id number] /
[2019-02-10 22:09] LABS: Glucose,Whole Blood 196 mg/dL (75-99)
[2019-02-10 23:02] LABS: Glucose,Whole Blood 162 mg/dL (75-99)
[2019-02-10 23:57] LABS: Glucose,Whole Blood 156 mg/dL (75-99)
--- NOTE | 2019-02-11 00:45 | P.CONS ---
History of Present Illness - Reason for Consult Consult date: 02/10/19 - Chief Complaint fever - History of Present Illness 78-year-old woman presents to the emergency center with the sudden change of her status and she developed fever and increasing weakness and altered mental status in counseling family brought her to hospital. She has chronic medical problems that include her superobesity lower extremity edema that had the onset of some increasing pain erythema and tenderness to the left lower extremity. 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 She developed evidence of an extensive cellulitis of left leg with secondary sepsis as he was admitted to hospital. Contemplation of vasopressor therapy occurred but is responded well to fluid resuscitation. There was evidence also of atrial fibrillation with a rapid ventricular response was treated with diltiazem which is also improving but not completely resolved. She feels slightly better this point in time and heart rate is now about 120. Review of Systems HEENT:Denies headache or acute visual change. Denies sinus or mouth discomforts. Denies neck stiffness or pain. Denies significant oral cavity pain. Denies difficulty on swallowing. Lungs: Denies significant shortness of breath, cough, sputum production, or hemoptysis. Cardiovascular: Denies significant shortness of breath, chest pain, chest wall pain, orthopnea, dyspnea on exertion, syncope Gastrointestinal:Denies nausea, vomiting, diarrhea, constipation, hematemesis, melena, hematochezia. No no significant change of bowel habit noticed. Musculoskeletal: with her obesity she has difficulty with ambulation Skin:chronic changes of the lower extremities Neuro: Denies headache or visual change. Denies any new onset weakness or difficulty with ambulation. Denies falls or seizures. Psychiatric:Denies anxiety or depression. Endocrine: Denies significant fatigue, denies significant weight loss or weight gain. Past Medical History Past Medical History: Atrial Fibrillation, Heart Failure, COPD, Diabetes Mellitus, Deep Vein Thrombosis (DVT), GERD/Reflux, Hyperlipidemia, Hypertension, Osteoarthritis (OA), Pneumonia, Renal Disease, Respiratory Disorder, Rheumatoid Arthritis (RA), Sleep Apnea/CPAP/BIPAP, Thyroid Disorder Additional Past Medical History / Comment(s): Chronic respiratory failure, home O2 at 2L/NC, possible mild pulmonary HTN, JOSR but no longer uses her device, lower extremity edema/redness/cellulitis-legs currently wrapped by son-states blisters on both legs and leakage from L leg, pt states she currently has a decubitus on her coccyx, NIDDM type II, neuropathy bilateral hands/feet, CKD stage IV, pt states she has had "bleeding in the kidneys" in the past, anemia, UTI with sepsis, incontinent of urine and occasionally stool, migraines, gout, hypothyroid, vertigo. History of Any Multi-Drug Resistant Organisms: None Reported Past Surgical History: Heart Catheterization, Hysterectomy, Joint Replacement, Orthopedic Surgery Additional Past Surgical History / Comment(s): Cardiac cath 2017-treated medically, R total knee replacement, L foot heel spur, sanjana cataracts with lens implants, cystoscopy, EGD, colonoscopy. Past Anesthesia/Blood Transfusion Reactions: No Reported Reaction Additional Psychological History / Comment(s): . Cared for by the family and the home. No travel. experience. No animal exposures. stopped smoking several years ago no history of recreational drug use Smoking Status: Former smoker - Past Family History Mother Family Medical History: Renal Disease Father Family Medical History: Coronary Artery Disease (CAD) Medications and Allergies Home Medications and Allergies Comment(s): Current Medications Acetaminophen (Tylenol Tab) 650 mg PO Q4HR PRN PRN Reason: Fever and/ or MILD Pain Last Admin: 02/10/19 11:27 Dose: 650 mg Documented by: Albuterol/Ipratropium (Duoneb 0.5 Mg-3 Mg/3 Ml Soln) 3 ml INHALATION RT-TID PRN PRN Reason: Shortness Of Breath Or Wheezing Albuterol/Ipratropium (Duoneb 0.5 Mg-3 Mg/3 Ml Soln) 3 ml INHALATION RT-TID [facility] Last Admin: 02/10/19 19:45 Dose: 3 ml Documented by: Apixaban (Eliquis) 5 mg PO BID [facility] Last Admin: 02/10/19 20:19 Dose: 5 mg Documented by: Atorvastatin Calcium (Lipitor) 40 mg PO HS [facility] Last Admin: 02/10/19 20:19 Dose: 40 mg Documented by: Docusate Sodium (Colace) 100 mg PO BID [facility] Last Admin: 02/10/19 21:30 Dose: 100 mg Documented by: Hydrocortisone Sodium Succinate (Solu-Cortef) 100 mg IV Q8HR [facility] Last Admin: 02/10/19 16:06 Dose: 100 mg Documented by: Piperacillin Sod/Tazobactam (Sod 3.375 gm/ Sodium Chloride) 100 mls @ 25 mls/hr IVPB Q8H [facility] Last Admin: 02/10/19 20:19 Dose: 25 mls/hr Documented by: Vancomycin HCl 1,750 mg/ (Sodium Chloride) 500 mls @ 167 mls/hr IVPB ONCE ONE Stop: 02/11/19 14:59 Sodium Chloride (Saline 0.9%) 1,000 mls @ 100 mls/hr IV .Q10H [facility] Last Admin: 02/10/19 17:30 Dose: 100 mls/hr Documented by: Norepinephrine Bitartrate 4 mg (/ Sodium Chloride) 254 mls @ 22.898 mls/hr IV .Q11H6M [facility]; Protocol Last Admin: 02/10/19 18:00 Dose: 0.05 mcg/kg/min, 22.898 mls/hr Documented by: Insulin Human Regular 100 unit (/ Sodium Chloride) 101 mls @ 0 mls/hr IV .Q0M [facility]; Protocol Last Titration: 02/10/19 23:00 Dose: 6 unit/hr, 6.06 mls/hr Documented by: Levothyroxine Sodium (Synthroid) 75 mcg PO 0630 [facility] Miscellaneous Information (Pharmacy To Dose Iv Vancomycin) 1 each MISCELLANE DIRECTED PRN PRN Reason: Per Protocol Naloxone HCl (Narcan) 0.2 mg IV Q2M PRN PRN Reason: Opioid Reversal Pantoprazole Sodium (Protonix) 40 mg PO -BRKFST [facility] Potassium Chloride (K-Dur 20) 40 meq PO DAILY [facility] Silver Sulfadiazine (Silvadene Cream) 1 applic TOPICAL DAILY [facility] Last Admin: 02/10/19 23:04 Dose: 1 applic Documented by: Tramadol HCl (Ultram) 50 mg PO DAILY PRN PRN Reason: MODERATE Pain Last Admin: 02/10/19 15:25 Dose: 50 mg Documented by: Home Medications Medication Instructions Recorded Confirmed Type Albuterol Inhaler [Ventolin Hfa 2 puff INHALATION RT-Q4H PRN 04/29/16 02/10/19 History Inhaler] Meclizine [Antivert] 25 mg PO TID 07/24/16 02/10/19 History Isosorbide Mononitrate ER [Imdur] 30 mg PO DAILY 01/16/17 02/10/19 History Potassium Chloride ER [K-Dur 20] 40 meq PO DAILY 03/22/18 02/10/19 History Ubidecarenone [Co Q-10] 200 mg PO DAILY 03/22/18 02/10/19 History Warfarin Sodium [Coumadin] 2 mg PO HS 03/22/18 02/10/19 History Furosemide [Lasix] 40 mg PO TID #90 tab 03/29/18 02/10/19 Rx Allopurinol [Zyloprim] 300 mg PO DAILY 02/10/19 02/10/19 History Atorvastatin [Lipitor] 40 mg PO HS 02/10/19 02/10/19 History Levothyroxine Sodium [Synthroid] 75 mcg PO DAILY 02/10/19 02/10/19 History Liothyronine Sodium [Cytomel] 5 mcg PO DAILY 02/10/19 02/10/19 History Metolazone [Zaroxolyn] 2.5 mg PO DAILY 02/10/19 02/10/19 History sitaGLIPtin [Januvia] 100 mg PO DAILY 02/10/19 02/10/19 History traMADol HCL [Ultram] 50 mg PO DAILY PRN 02/10/19 02/10/19 History Allergies Allergy/AdvReac Type Severity Reaction Status Date / Time iron Allergy Rash/Hives Verified 02/10/19 07:49 Sulfa (Sulfonamide Allergy Rash/Hives Verified 02/10/19 07:49 Antibiotics) Tetanus Vaccines and Toxoid Allergy Swelling Verified 02/10/19 07:49 Physical Exam Vitals: Vital Signs Temp Pulse Resp BP Pulse Ox 02/11/19 00:00 97.8 F 105 H 17 82/61 97 02/10/19 23:30 94 10 L 84/66 96 02/10/19 23:00 110 H 15 87/68 96 02/10/19 22:30 90 18 93/64 96 02/10/19 22:00 94 13 94/60 96 02/10/19 21:30 107 H 22 101/71 95 02/10/19 21:00 123 H 11 L 95/68 92 L 02/10/19 20:30 110 H 13 95/72 96 02/10/19 20:00 97.8 F 107 H 19 100/71 95 02/10/19 19:56 116 H 02/10/19 19:46 116 H 02/10/19 19:30 112 H 23 110/96 95 02/10/19 19:00 112 H 16 98/80 93 L 02/10/19 18:30 121 H 26 H 98/75 94 L 02/10/19 18:00 106 H 24 117/101 94 L 02/10/19 17:15 129 H 22 73/56 94 L 02/10/19 16:45 105 H 24 80/70 94 L 02/10/19 16:00 97.6 F 103 H 24 95/61 95 02/10/19 15:45 104 H 90/56 93 L 02/10/19 15:30 100 97/66 94 L 02/10/19 15:20 24 95 02/10/19 15:15 110 H 28 H 86/54 94 L 02/10/19 15:00 105 H 24 76/45 93 L 02/10/19 14:45 118 H 26 H 79/57 94 L 02/10/19 14:30 102 H 22 76/43 94 L 02/10/19 14:15 113 H 25 H 81/46 93 L 02/10/19 14:00 98 12 78/45 94 L 02/10/19 13:45 124 H 17 89/51 94 L 02/10/19 13:15 120 H 35 H 82/52 94 L 02/10/19 13:00 17 85/49 94 L 02/10/19 12:45 131 H 12 90/64 93 L 02/10/19 12:30 98.1 F 128 H 20 92/57 95 02/10/19 12:00 134 H 16 116/46 94 L 02/10/19 11:45 133 H 20 84/57 96 02/10/19 11:30 125 H 21 87/71 95 02/10/19 11:00 131 H 31 H 88/61 95 02/10/19 10:00 98.3 F 142 H 16 98/67 96 02/10/19 07:00 127 H 20 106/63 98 02/10/19 05:50 135 H 21 99 02/10/19 05:00 144 H 22 98 02/10/19 04:10 154 H 15 99 02/10/19 03:10 149 H 11 L 114/79 97 02/10/19 01:30 29 H 112/59 20 L 02/10/19 01:00 125 H 16 101/82 68 L Intake and Output 02/10/19 02/10/19 02/11/19 14:59 22:59 06:59 Intake Total 1449.583 624.846 206.733 Output Total 240 485 95 Balance 1209.583 139.846 111.733 Intake: IV 1400 600 200 Piperacillin-Tazobactam 3 100 100 .375 gm In Sodium Chloride 0.9% 100 ml @ 25 mls/hr IVPB Q8H [facility] Rx#: [id number] Sodium Chloride 0.9% 1, 1300 500 200 000 ml @ 100 mls/hr IV . Q10H [facility] Rx#:[id number] Intake, IV Titration 49.583 24.846 6.733 Amount Diltiazem 125 mg In 49.583 Sodium Chloride 0.9% 100 ml @ 15 MG/HR 15 mls/hr IV .Q8H20M [facility] Rx#: [id number] Insulin Regular 100 unit 24.846 6.733 In Sodium Chloride 0.9% 100 ml @ Per Protocol IV .Q0M [facility] Rx#:[id number] Output: Urine 240 485 95 Other: Voiding Method Indwelling Catheter pleasant obese 78-year-old woman HEENT: Anicteric conjunctiva are pink and moist nasal mucosa grossly intact without significant lesions, there is no thrush. Neck: The neck is supple without significant lymphadenopathy or thyromegaly. Lungs: Good bilateral air entry without significant crackles or wheezing. There is no significant bronchial sounds. There is no egophony or dullness. Heart: Regular rate and rhythm with an audible S1-S2, no S3 no S4. There is no significant murmur click or rub, PMI was nondisplaced. Abdomen: Positive bowel sounds soft and nontender without palpable masses or organomegaly. There was no guarding or rebound. Extremities: The upper extremities have excellent pulses they are symmetric, no significant petechiae or telangiectasia. No splinter hemorrhages were noted. Bilateral lower extremities have chronic edema with chronic venous stasis, chronic lipedema and chronic thickened hyperkeratotic skin. The left leg is considerably worse than the right. There is dense erythema from the foot to just below the knee. It is quite tender and quite warm to touch. Presents the thickened dry skin to the plantar surface a secondary fungal infection of the skin as the likely portal of entry. Neuro: Awake alert oriented to person place and time. There are no acute new gross focal sensory motor deficits. Results CBC & Chem 7: 02/10/19 01:10 02/10/19 01:10 Labs: Abnormal Lab Results - Last 24 Hours (Table) 02/10/19 02/10/19 02/10/19 Range/Units 01:00 01:10 01:10 WBC 42.4 H (3.8-10.6) k/uL Neutrophils # (Manual) 41.50 H (1.3-7.7) k/uL Lymphocytes # (Manual) 0.42 L (1.0-4.8) k/uL Chloride 96 L (98-107) mmol/L BUN 81 H (7-17) mg/dL Creatinine 1.56 H (0.52-1.04) mg/dL Glucose 199 H (74-99) mg/dL POC Glucose (mg/dL) (75-99) mg/dL Plasma Lactic Acid Oscar (0.7-2.0) mmol/L TSH (0.465-4.680) mIU/L Urine Appearance Cloudy H (Clear) Urine Blood Moderate H (Negative) Ur Leukocyte Esterase Large H (Negative) Urine RBC 31 H (0-5) /hpf Urine WBC 34 H (0-5) /hpf Urine Mucus Rare H (None) /hpf 02/10/19 02/10/19 02/10/19 Range/Units 01:10 09:50 12:14 WBC (3.8-10.6) k/uL Neutrophils # (Manual) (1.3-7.7) k/uL Lymphocytes # (Manual) (1.0-4.8) k/uL Chloride (98-107) mmol/L BUN (7-17) mg/dL Creatinine (0.52-1.04) mg/dL Glucose (74-99) mg/dL POC Glucose (mg/dL) 203 H (75-99) mg/dL Plasma Lactic Acid Oscar 2.7 H* (0.7-2.0) mmol/L TSH 6.650 H (0.465-4.680) mIU/L Urine Appearance (Clear) Urine Blood (Negative) Ur Leukocyte Esterase (Negative) Urine RBC (0-5) /hpf Urine WBC (0-5) /hpf Urine Mucus (None) /hpf 02/10/19 02/10/19 02/10/19 Range/Units 16:06 17:42 19:18 WBC (3.8-10.6) k/uL Neutrophils # (Manual) (1.3-7.7) k/uL Lymphocytes # (Manual) (1.0-4.8) k/uL Chloride (98-107) mmol/L BUN (7-17) mg/dL Creatinine (0.52-1.04) mg/dL Glucose (74-99) mg/dL POC Glucose (mg/dL) 213 H 237 H (75-99) mg/dL Plasma Lactic Acid Oscar 2.2 H* (0.7-2.0) mmol/L TSH (0.465-4.680) mIU/L Urine Appearance (Clear) Urine Blood (Negative) Ur Leukocyte Esterase (Negative) Urine RBC (0-5) /hpf Urine WBC (0-5) /hpf Urine Mucus (None) /hpf 02/10/19 02/10/19 02/10/19 Range/Units 19:46 19:48 21:15 WBC (3.8-10.6) k/uL Neutrophils # (Manual) (1.3-7.7) k/uL Lymphocytes # (Manual) (1.0-4.8) k/uL Chloride (98-107) mmol/L BUN (7-17) mg/dL Creatinine (0.52-1.04) mg/dL Glucose (74-99) mg/dL POC Glucose (mg/dL) 231 H 194 H (75-99) mg/dL Plasma Lactic Acid Oscar 2.1 H* (0.7-2.0) mmol/L TSH (0.465-4.680) mIU/L Urine Appearance (Clear) Urine Blood (Negative) Ur Leukocyte Esterase (Negative) Urine RBC (0-5) /hpf Urine WBC (0-5) /hpf Urine Mucus (None) /hpf 02/10/19 02/10/19 02/10/19 Range/Units 22:07 23:00 23:55 WBC (3.8-10.6) k/uL Neutrophils # (Manual) (1.3-7.7) k/uL Lymphocytes # (Manual) (1.0-4.8) k/uL Chloride (98-107) mmol/L BUN (7-17) mg/dL Creatinine (0.52-1.04) mg/dL Glucose (74-99) mg/dL POC Glucose (mg/dL) 196 H 162 H 156 H (75-99) mg/dL Plasma Lactic Acid Oscar (0.7-2.0) mmol/L TSH (0.465-4.680) mIU/L Urine Appearance (Clear) Urine Blood (Negative) Ur Leukocyte Esterase (Negative) Urine RBC (0-5) /hpf Urine WBC (0-5) /hpf Urine Mucus (None) /hpf Microbiology - Last 24 Hours (Table) 02/10/19 01:00 Urine Culture - Preliminary Urine,Clean Catch Laboratory Results WBC 42.4 k/uL (3.8-10.6) H 02/10/19 01:10 RBC 4.49 m/uL (3.80-5.40) 02/10/19 01:10 Hgb 13.7 gm/dL (11.4-16.0) 02/10/19 01:10 Hct 44.1 % (34.0-46.0) 02/10/19 01:10 MCV 98.3 fL (80.0-100.0) 02/10/19 01:10 MCH 30.5 pg (25.0-35.0) 02/10/19 01:10 MCHC 31.0 g/dL (31.0-37.0) 02/10/19 01:10 RDW 14.8 % (11.5-15.5) 02/10/19 01:10 Plt Count 189 k/uL (150-450) 02/10/19 01:10 Neutrophils % (Manual) 95 % 02/10/19 01:10 Band Neutrophils % 3 % 02/10/19 01:10 Lymphocytes % (Manual) 1 % 02/10/19 01:10 Monocytes % (Manual) 1 % 02/10/19 01:10 Neutrophils # (Manual) 41.50 k/uL (1.3-7.7) H 02/10/19 01:10 Lymphocytes # (Manual) 0.42 k/uL (1.0-4.8) L 02/10/19 01:10 Monocytes # (Manual) 0.42 k/uL (0-1.0) 02/10/19 01:10 Nucleated RBCs 0 /100 WBC (0-0) 02/10/19 01:10 Manual Slide Review Performed 02/10/19 01:10 PT 10.3 sec (9.0-12.0) 02/10/19 08: INR 1.0 (<1.2) 02/10/19 08: APTT 22.6 sec (22.0-30.0) 02/10/19 08:19 Sodium 137 mmol/L (137-145) 02/10/19 01:10 Potassium 4.6 mmol/L (3.5-5.1) 02/10/19 01:10 Chloride 96 mmol/L (98-107) L 02/10/19 01:10 Carbon Dioxide 27 mmol/L (22-30) 02/10/19 01:10 Anion Gap 14 mmol/L 02/10/19 01:10 BUN 81 mg/dL (7-17) H 02/10/19 01:10 Creatinine 1.56 mg/dL (0.52-1.04) H 02/10/19 01:10 Est GFR (CKD-EPI)AfAm 36 (>60 ml/min/1.73 sqM) 02/10/19 01:10 Est GFR (CKD-EPI)NonAf 31 (>60 ml/min/1.73 sqM) 02/10/19 01:10 Glucose 199 mg/dL (74-99) H 02/10/19 01:10 POC Glucose (mg/dL) 156 mg/dL (75-99) H 02/10/19 23:55 POC Glu Manager Rn Case ID Abeba Landry 02/10/19 23:55 Lactic Ac Sepsis Rflx Y 02/10/19 20:31 Plasma Lactic Acid Osacr 2.1 mmol/L (0.7-2.0) H* 02/10/19 19:46 Calcium 10.1 mg/dL (8.4-10.2) 02/10/19 01:10 Total Bilirubin 1.1 mg/dL (0.2-1.3) 02/10/19 01:10 AST 23 U/L (14-36) 02/10/19 01:10 ALT 20 U/L (9-52) 02/10/19 01:10 Alkaline Phosphatase 101 U/L (38-126) 02/10/19 01:10 Troponin I 0.021 ng/mL (0.000-0.034) 02/10/19 08:35 NT-Pro-B Natriuret Pep 1000 pg/mL 02/10/19 08:35 Total Protein 7.2 g/dL (6.3-8.2) 02/10/19 01:10 Albumin 4.3 g/dL (3.5-5.0) 02/10/19 01:10 TSH 6.650 mIU/L (0.465-4.680) H 02/10/19 01:10 Free T4 1.35 ng/dL (0.78-2.19) 02/10/19 01:10 Cortisol 43 ug/dL 02/10/19 01:10 Urine Color Yellow 02/10/19 01:00 Urine Appearance Cloudy (Clear) H 02/10/19 01:00 Urine pH 5.0 (5.0-8.0) 02/10/19 01:00 Ur Specific [place] 1.013 (1.001-1.035) 02/10/19 01:00 Urine Protein Negative (Negative) 02/10/19 01:00 Urine Glucose (UA) Negative (Negative) 02/10/19 01:00 Urine Ketones Negative (Negative) 02/10/19 01:00 Urine Blood Moderate (Negative) H 02/10/19 01:00 Urine Nitrite Negative (Negative) 02/10/19 01:00 Urine Bilirubin Negative (Negative) 02/10/19 01:00 Urine Urobilinogen <2.0 mg/dL (<2.0) 02/10/19 01:00 Ur Leukocyte Esterase Large (Negative) H 02/10/19 01:00 Urine RBC 31 /hpf (0-5) H 02/10/19 01:00 Urine WBC 34 /hpf (0-5) H 02/10/19 01:00 Ur Squamous Epith Cells 3 /hpf (0-4) 02/10/19 01:00 Hyaline Casts 2 /lpf (0-2) 02/10/19 01:00 Urine Mucus Rare /hpf (None) H 02/10/19 01:00 Microbiology 02/10/19 01:00 Urine,Clean Catch Urine Culture - Preliminary Comments: venous Dopplers negative for deep venous thrombosis. Chest x-ray negative for pneumonia Assessment and Plan (1) Fever Current Visit: Yes Status: Acute Code(s): R50.9 - FEVER, UNSPECIFIED SNOMED Code(s): 756506409 (2) Acute sepsis Current Visit: Yes Status: Acute Code(s): A41.9 - SEPSIS, UNSPECIFIED ORGANISM SNOMED Code(s): 14326918 (3) Cellulitis of left lower extremity Narrative/Plan: 78-year-old woman presents to the emergency center with complaints of feeling ill with fever and chills. There is evidence of the extensive cellulitis left lower extremity with a thickened cracked skin with secondary fungal infection as a portal of entry for the infections the left leg. This is the etiology also of her sepsis. Local wound care with Silvadene has been requested. Intravenous antibiotic therapy has been initiated with vancomycin and Zosyn given her sepsis relative hypotension and need for ICU admission. Cultures were further help direct The leg should be elevated while at rest. She believes she is up-to-date with tetanus vaccine Diabetes control will be very helpful or the improvement of the infection Current Visit: Yes Status: Acute Code(s): L03.116 - CELLULITIS OF LEFT LOWER LIMB SNOMED Code(s): 603822522
[2019-02-11] MEDS: HYDROCORTISONE SUCCINATE 100 MG/2 ML VIAL IV SCH ×2 (00:50→07:53)
[2019-02-11 01:13] LABS: Glucose,Whole Blood 110 mg/dL (75-99)
[2019-02-11 02:06] LABS: Glucose,Whole Blood 128 mg/dL (75-99)
[2019-02-11 03:02] LABS: Glucose,Whole Blood 131 mg/dL (75-99)
[2019-02-11 04:09] LABS: Glucose,Whole Blood 177 mg/dL (75-99)
[2019-02-11] MEDS: PIPERACILLIN-TAZOBACTAM 3.375 GM in SODIUM CHLORIDE 0.9% 100 ML IVPB SCH ×3 (04:14→22:34)
[2019-02-11 04:34] LABS: Glucose,Whole Blood 181 mg/dL (75-99)
[2019-02-11 05:13] LABS: Glucose,Whole Blood 174 mg/dL (75-99)
[2019-02-11] MEDS: NOREPINEPHRINE 4 MG in SODIUM CHLORIDE 0.9% 250 ML IV SCH (05:17)
[2019-02-11] MEDS: SODIUM CHLORIDE 0.9% 1,000 ML IV SCH ×2 (05:17→10:15)
[2019-02-11 05:46] LABS: Basophils % (A) 0 %; Eosinophils % (A) 0 %; HCT 37.8 % (34.0-46.0); HGB 12.3 gm/dL (11.4-16.0); Lymphocytes # (A) 0.5 k/uL (1.0-4.8); Lymphocytes % (A) 2 %; MCH 31.9 pg (25.0-35.0); MCHC 32.6 g/dL (31.0-37.0); MCV 98.1 fL (80.0-100.0); Mean Platelet Volume 8.2; Monocytes # (A) 0.5 k/uL (0-1.0); Monocytes % (A) 2 %; Neutrophils # (A) 21.8 k/uL (1.3-7.7); Neutrophils % (A) 95 %; Platelet Count 155 k/uL (150-450); RBC 3.85 m/uL (3.80-5.40); RDW 14.9 % (11.5-15.5)
[2019-02-11 05:51] LABS: Glucose,Whole Blood 177 mg/dL (75-99)
[2019-02-11 05:52] LABS: INR 1.1 (<1.2); Prothrombin Time 11.1 sec (9.0-12.0)
[2019-02-11 05:54] LABS: Potassium 3.8 mmol/L (3.5-5.1)
[2019-02-11] MEDS ORDERED: LEVOTHYROXINE 75 MCG TAB PO SCH (06:30)
[2019-02-11] MEDS: PANTOPRAZOLE 40 MG TABLET PO SCH (06:46)
[2019-02-11 06:56] LABS: Glucose,Whole Blood 136 mg/dL (75-99)
[2019-02-11] MEDS ORDERED: LEVOTHYROXINE 25 MCG TAB PO STA (07:43)
[2019-02-11] MEDS: IPRATROPIUM-ALBUTEROL 3 ML NEB INHALATION SCH ×3 (07:51→19:34)
[2019-02-11] MEDS: POTASSIUM CHLORIDE ER 20 MEQ TAB.ER PO SCH (07:55)
[2019-02-11] MEDS: DOCUSATE 100 MG CAP PO SCH (07:55)
[2019-02-11] MEDS: APIXABAN 5 MG TAB PO SCH ×2 (07:55→22:33)
[2019-02-11] MEDS ORDERED: FUROSEMIDE 10 MG/ML 4 ML VIAL IV STA (08:18)
[2019-02-11 08:29] LABS: Glucose,Whole Blood 129 mg/dL (75-99)
--- NOTE | 2019-02-11 08:38 | PN ---
PROGRESS NOTE Mrs. Dominguez is a 78-year-old female who presented with evidence of urinary tract infection and progressive dyspnea. She also has findings consistent with cellulitis. She had evidence of atrial fibrillation with rapid ventricular response. She is feeling slightly better today. She continues to be dyspneic. She denies any symptoms of chest discomfort. She denies any dizziness. She has received fluid. She was mildly short of breath earlier. She is not on any vasopressor. She underwent an echocardiogram with Doppler yesterday that revealed an ejection fraction of 50% to 55% with mild mitral regurgitation and moderate pulmonary hypertension. She continues to be at this time on Eliquis 5 mg twice a day, Lipitor 40 mg daily. Her beta darius was stopped earlier. PHYSICAL EXAMINATION: Blood pressure running in the 100 with a heart rate in the 130. LUNGS: With mild decreased breath sounds, a few crackles. HEART: Irregular, regular, S1, S2. No S3 with a systolic murmur and diastolic murmur. ABDOMEN: Soft, obese, nontender. EXTREMITIES: Myles wrapping in place and dressing with signs of edema noted on the toes. IMPRESSION: 1. Urosepsis with cellulitis. 2. Atrial fibrillation with episode of rapid ventricular response. 3. Possible fluid overload after receiving fluid for her sepsis. 4. History of hypertension. 5. Hyperlipidemia. 6. Diabetes mellitus. 7. Obesity. RECOMMENDATION: I will re-initiate treatment with the beta darius to control her ventricular response. Will continue the anticoagulation. The patient may require some diuresis because of the fluid overload but that depends on the trend of her blood pressure. Her BUN and creatinine 62 and 1.27, which is improved compared to yesterday. White blood cell is 23,000. I will follow her renal function and depending on her progress, further recommendation will be made. MMODL / IJN: [id number] /
[2019-02-11] MEDS ORDERED: METOLAZONE 2.5 MG TAB PO SCH (09:00)
--- NOTE | 2019-02-11 09:00 | XR ---
EXAMINATION TYPE: XR chest 1V portable DATE OF EXAM: 02/11/2019 COMPARISON: 02/10/2019 INDICATION: CHF TECHNIQUE: Single frontal view of the chest is obtained. Patient is rotated towards the right FINDINGS: The heart size is prominent. The pulmonary vasculature is prominent. There is diffuse increased central lung markings which can be compatible with volume overload. Findin gs are worsening over the interval. Follow-up is recommended. IMPRESSION: 1. Very megaly with prominent pulmonary vascular markings and increasing central lung markings can be compatible with CHF in the proper clinical setting. Follow-up is recommended.
[2019-02-11] MEDS: METOPROLOL TARTRATE 25 MG TAB PO SCH ×3 (09:31→22:33)
--- NOTE | 2019-02-11 10:05 | PN ---
PROGRESS NOTE This is an 78-year-old female we saw yesterday in consultation for urosepsis with hypotension. She does have a history of congestive heart failure, obesity, hypertension, DVT, chronic kidney disease, diabetes, COPD, sleep apnea syndrome, atrial fibrillation with RVR, and bilateral lower extremity cellulitis, with the left leg being worse than the right. The patient currently is on O2 at 2 L. She is getting an IV of 0.9 at 100. We are going to turn that down to KVO. Her cortisol level was 43, which is adequate. Her TSH was elevated, suggesting that her thyroid dose is low. We are going to bump her Synthroid from 75 to 100 mcg. The patient was never started on norepinephrine or Cardizem drip. She was admitted with urosepsis, atrial fibrillation, and cellulitis. She is doing much better today. I did speak to Dr. Kim. We are going to cut back her IVs and give her some additional Lasix for her fluid overload state. She did get quite a bit of fluids because of her sepsis and hypotension. She is feeling better today. PHYSICAL EXAMINATION: VITAL SIGNS: Current vital signs include a temperature 98.3, heart rate 120, respiratory rate 20, blood pressure 102/73, mean 82 and 2 L saturation 99%. GENERAL: Appears in no acute distress. HEENT: Examination is grossly unremarkable. Mucous membranes are moist. Nasal O2 noted. NECK: Supple. Full range of motion. No adenopathy or thyromegaly. Neck veins are flat. CARDIOVASCULAR: Examination reveals a heart rate of 120. It is irregular. She is in atrial fibrillation. S1, S2 normal. Heart sounds are distant. No distinct murmur noted. LUNGS: Reveal some mild bibasilar crackles. A few scattered rhonchi. No wheezes. Breath sounds equal. ABDOMEN: Obese. Bowel sounds are heard. EXTREMITIES: Reveal chronic venous stasis changes. There is significant lower extremity edema. There is pitting. She has got some stasis dermatitis noted. SKIN: Without rash other than what was mentioned above. NEUROLOGIC: Examination is brief but nonfocal. Microbiologic data thus far is negative. LABS: Labs are reviewed. White count 23, hemoglobin 12.3, hematocrit 37.8, platelet count 155,000. PT, INR normal. Sodium, potassium, chloride, CO2 all normal. Anion gap 6. BUN and creatinine were 62 and 1.27. X-RAY: Chest x-ray shows for one thing she is rotated, but it does show a pattern of mild fluid overload. There is cephalization. There is some fluid in the minor fissures and the costophrenic angles shows some evidence of pleural effusion. MEDICATIONS: Medications are reviewed. ASSESSMENT: 1. Suspected urinary tract infection/urosepsis with hypotension and septic shock, improved, cultures pending. 2. Congestive heart failure with worsening excess fluid status. 3. Obesity. 4. Benign essential hypertension. 5. History of deep venous thrombosis. 6. History of chronic kidney disease. 7. Diabetes mellitus. 8. Chronic obstructive pulmonary disease from previous tobacco use. 9. History of sleep apnea syndrome. 10.Atrial fibrillation with rapid ventricular response. 11.Bilateral lower extremity cellulitis, left leg worse than the right. PLAN: The medications will be reviewed. Her IV will be turned down to KVO. The patient never required Levophed or Cardizem. We bumped up her Synthroid from 75 to 100 mcg. She will get some Lasix for her fluid overload state. Additional recommendations and suggestions are forthcoming. Prognosis is guarded. MMODL / IJN: [id number] /
[2019-02-11 10:10] LABS: Glucose,Whole Blood 173 mg/dL (75-99)
[2019-02-11] MEDS ORDERED: Magnesium Replacement Protocol 1 EACH MISC MISCELLANE PRN (10:16)
[2019-02-11] MEDS ORDERED: INSULIN REGULAR 100 UNIT in SODIUM CHLORIDE 0.9% 100 ML IV SCH (11:00)
--- NOTE | 2019-02-11 11:10 | P.PN ---
Subjective Progress Note Date: 02/11/19 Tamar Dominguez is an 78 yo F with PMH significant for diastolic CHF, A fib, T2DM, hx DVT, hypothyroid who presented to the ED with weakness, chills and malaise. History obtained via pt and son. Son states that pt ran out of her metolazone a few days ago and has been having more difficulty ambulating and fe eling more weak. She had not been able to walk to the bathroom and had been noticing increasing cough. Yesterday pt began to experience chills and nausea in addition to worsening weakness. Due to this she came in to the ED. No sick contacts at home. Son has been wrapping wound on LLE which he states had become more red and tender over the same interval. In the ED, temp on admission 99.7, BP stable, HR in 150s. WBC 40k, Cr 1.5, INR subtherpeutic at 1.0, CXR with interstitial prominence, UA with large LE and nitrite. Trop negative. Pt given dose of rocephin and started on cardizem for RVR. 02/11. Pt became hypotensive yesterday am and was transferred to ICU and started on solucortef and given IVF. Her cardizem has been discontinued and her HR is controlled with metoprolol. ID evaluated pt and agreeable with current abx in addition to local wound care. Pt feeling better today but still weak and short of breath. Objective - Vital Signs Vital signs: Vital Signs Temp 98.3 F 02/11/19 08:00 Pulse 130 H 02/11/19 10:00 Resp 19 02/11/19 10:00 BP 109/86 02/11/19 10:00 Pulse Ox 96 02/11/19 10:00 Intake & Output 02/10/19 02/11/19 02/11/19 18:59 06:59 18:59 Intake Total 4453.910 7803.939 180 Output Total 450 805 280 Balance 1099.583 497.939 -100 Weight 123 kg Intake: IV 1500 1240 80 Piperacillin-Tazobactam 3 100 200 .375 gm In Sodium Chloride 0.9% 100 ml @ 25 mls/hr IVPB Q8H [facility] Rx#: [id number] Sodium Chloride 0.9% 1, 1400 1040 80 000 ml @ 100 mls/hr IV . Q10H [facility] Rx#:[id number] Intake, IV Titration 49.583 62.939 0 Amount Diltiazem 125 mg In 49.583 Sodium Chloride 0.9% 100 ml @ 15 MG/HR 15 mls/hr IV .Q8H20M [facility] Rx#: [id number] Insulin Regular 100 unit 62.939 0 In Sodium Chloride 0.9% 100 ml @ Per Protocol IV .Q0M [facility] Rx#:[id number] Oral 100 Output: Urine 450 805 280 Other: Voiding Method Indwelling Catheter Indwelling Catheter Indwelling Catheter - Exam General: well nourished, well developed, resting in NAD. Vitals reviewed Lungs: normal respiratory effort, no wheezes or rales CV: Irregularly irregular, no murmur. Peripheral pulses 1+ Skin: RLE with 2+ edema. LLE with 3+ edema, erythema and cracked skin up to mid fall. There is a 3x2 cm region of fissure with scant serous drainage and surrounding erythema Neuro: A&Ox3, normal mood and affect - Labs CBC & Chem 7: 02/11/19 05:31 02/11/19 05:31 Labs: Abnormal Lab Results - Last 24 Hours (Table) 02/10/19 02/10/19 02/10/19 Range/Units 01:10 12:14 16:06 WBC (3.8-10.6) k/uL Neutrophils # (1.3-7.7) k/uL Lymphocytes # (1.0-4.8) k/uL BUN (7-17) mg/dL Creatinine (0.52-1.04) mg/dL Glucose (74-99) mg/dL POC Glucose (mg/dL) (75-99) mg/dL Plasma Lactic Acid Oscar 2.7 H* 2.2 H* (0.7-2.0) mmol/L TSH 6.650 H (0.465-4.680) mIU/L 02/10/19 02/10/19 02/10/19 Range/Units 17:42 19:18 19:46 WBC (3.8-10.6) k/uL Neutrophils # (1.3-7.7) k/uL Lymphocytes # (1.0-4.8) k/uL BUN (7-17) mg/dL Creatinine (0.52-1.04) mg/dL Glucose (74-99) mg/dL POC Glucose (mg/dL) 213 H 237 H (75-99) mg/dL Plasma Lactic Acid Oscar 2.1 H* (0.7-2.0) mmol/L TSH (0.465-4.680) mIU/L 02/10/19 02/10/19 02/10/19 Range/Units 19:48 21:15 22:07 WBC (3.8-10.6) k/uL Neutrophils # (1.3-7.7) k/uL Lymphocytes # (1.0-4.8) k/uL BUN (7-17) mg/dL Creatinine (0.52-1.04) mg/dL Glucose (74-99) mg/dL POC Glucose (mg/dL) 231 H 194 H 196 H (75-99) mg/dL Plasma Lactic Acid Oscar (0.7-2.0) mmol/L TSH (0.465-4.680) mIU/L 02/10/19 02/10/19 02/11/19 Range/Units 23:00 23:55 01:12 WBC (3.8-10.6) k/uL Neutrophils # (1.3-7.7) k/uL Lymphocytes # (1.0-4.8) k/uL BUN (7-17) mg/dL Creatinine (0.52-1.04) mg/dL Glucose (74-99) mg/dL POC Glucose (mg/dL) 162 H 156 H 110 H (75-99) mg/dL Plasma Lactic Acid Oscar (0.7-2.0) mmol/L TSH (0.465-4.680) mIU/L 02/11/19 02/11/19 02/11/19 Range/Units 02:04 03:00 04:07 WBC (3.8-10.6) k/uL Neutrophils # (1.3-7.7) k/uL Lymphocytes # (1.0-4.8) k/uL BUN (7-17) mg/dL Creatinine (0.52-1.04) mg/dL Glucose (74-99) mg/dL POC Glucose (mg/dL) 128 H 131 H 177 H (75-99) mg/dL Plasma Lactic Acid Oscar (0.7-2.0) mmol/L TSH (0.465-4.680) mIU/L 02/11/19 02/11/19 02/11/19 Range/Units 04:33 05:11 05:31 WBC 23.0 H (3.8-10.6) k/uL Neutrophils # 21.8 H (1.3-7.7) k/uL Lymphocytes # 0.5 L (1.0-4.8) k/uL BUN (7-17) mg/dL Creatinine (0.52-1.04) mg/dL Glucose (74-99) mg/dL POC Glucose (mg/dL) 181 H 174 H (75-99) mg/dL Plasma Lactic Acid Oscar (0.7-2.0) mmol/L TSH (0.465-4.680) mIU/L 02/11/19 02/11/19 02/11/19 Range/Units 05:31 05:50 06:54 WBC (3.8-10.6) k/uL Neutrophils # (1.3-7.7) k/uL Lymphocytes # (1.0-4.8) k/uL BUN 62 H (7-17) mg/dL Creatinine 1.27 H (0.52-1.04) mg/dL Glucose 159 H (74-99) mg/dL POC Glucose (mg/dL) 177 H 136 H (75-99) mg/dL Plasma Lactic Acid Oscar (0.7-2.0) mmol/L TSH (0.465-4.680) mIU/L 02/11/19 02/11/19 Range/Units 08:28 10:08 WBC (3.8-10.6) k/uL Neutrophils # (1.3-7.7) k/uL Lymphocytes # (1.0-4.8) k/uL BUN (7-17) mg/dL Creatinine (0.52-1.04) mg/dL Glucose (74-99) mg/dL POC Glucose (mg/dL) 129 H 173 H (75-99) mg/dL Plasma Lactic Acid Oscar (0.7-2.0) mmol/L TSH (0.465-4.680) mIU/L Microbiology - Last 24 Hours (Table) 02/10/19 01:00 Urine Culture - Preliminary Urine,Clean Catch Assessment and Plan (1) Severe sepsis Current Visit: Yes Status: Acute Code(s): A41.9 - SEPSIS, UNSPECIFIED ORGANISM; R65.20 - SEVERE SEPSIS WITHOUT SEPTIC SHOCK SNOMED Code(s): 26548344 (2) Acute on chronic diastolic (congestive) heart failure Current Visit: Yes Status: Acute Code(s): I50.33 - ACUTE ON CHRONIC DIASTOLIC (CONGESTIVE) HEART FAILURE SNOMED Code(s): 224647768 (3) Cellulitis of left lower extremity Current Visit: Yes Status: Acute Code(s): L03.116 - CELLULITIS OF LEFT LOWER LIMB SNOMED Code(s): 355603086 (4) Acute kidney injury Current Visit: Yes Status: Acute Code(s): N17.9 - ACUTE KIDNEY FAILURE, UNSPECIFIED SNOMED Code(s): 56701426 (5) Subtherapeutic international normalized ratio (INR) Current Visit: Yes Status: Acute Code(s): R79.1 - ABNORMAL COAGULATION PROFILE SNOMED Code(s): 308038346 (6) Atrial fibrillation with rapid ventricular response Current Visit: Yes Status: Acute Code(s): I48.91 - UNSPECIFIED ATRIAL FIBRI LLATION SNOMED Code(s): 314570842210778 (7) Leukocytosis Current Visit: Yes Status: Acute Code(s): D72.829 - ELEVATED WHITE BLOOD CELL COUNT, UNSPECIFIED SNOMED Code(s): 093981736 (8) Acute cystitis Current Visit: Yes Status: Acute Code(s): N30.00 - ACUTE CYSTITIS WITHOUT HEMATURIA SNOMED Code(s): 53892181 (9) Type 2 diabetes mellitus Current Visit: Yes Status: Acute Code(s): E11.9 - TYPE 2 DIABETES MELLITUS WITHOUT COMPLICATIONS SNOMED Code(s): 65794683 (10) Septic shock Current Visit: Yes Status: Acute Code(s): A41.9 - SEPSIS, UNSPECIFIED ORGANISM; R65.21 - SEVERE SEPSIS WITH SEPTIC SHOCK SNOMED Code(s): 59932936 Plan: 1. Septic shock. Secondary to cellulitis. Blood cultures drawn. Attempt to obtain wound culture. Zosyn and vancomycin. Solucortef. ID and critical care following 2. Atrial fibrillation with RVR. Cardiology following. HR controlled with metoprolol 3. Acute exacerbation of diastolic CHF. Strict I/Os. Diuresis today with lasix per cardiology 4. Subtherapeutic INR. US negative for DVT. Pt started on eliquis 5. T2DM. Accucheck/sliding scale. Hold januvia 6. CAD. Continue Statin and imdur 7. Hypothyroidism. Continue synthroid DVT prophylaxis: lovenox/coumadin
[2019-02-11 11:31] LABS: Glucose,Whole Blood 210 mg/dL (75-99)
[2019-02-11] MEDS: MAGNESIUM SULFATE-D5W PMX 1 GM in DEXTROSE/WATER 1 100ML.BAG IVPB SCH ×2 (11:40→15:22)
[2019-02-11] MEDS ORDERED: VANCOMYCIN 1,750 MG in SODIUM CHLORIDE 0.9% 500 ML 500 ML IVPB ONE (12:00)
[2019-02-11 13:41] LABS: Glucose,Whole Blood 223 mg/dL (75-99)
[2019-02-11 14:28] LABS: Glucose,Whole Blood 204 mg/dL (75-99)
[2019-02-11 15:19] LABS: Glucose,Whole Blood 196 mg/dL (75-99)
[2019-02-11 16:32] LABS: Glucose,Whole Blood 199 mg/dL (75-99)
[2019-02-11 17:39] LABS: Glucose,Whole Blood 193 mg/dL (75-99)
[2019-02-11 18:12] LABS: Glucose,Whole Blood 245 mg/dL (75-99)
[2019-02-11 19:10] LABS: Glucose,Whole Blood 213 mg/dL (75-99)
[2019-02-11 19:55] LABS: Glucose,Whole Blood 169 mg/dL (75-99)
[2019-02-11 21:02] LABS: Glucose,Whole Blood 138 mg/dL (75-99)
[2019-02-11 22:01] LABS: Glucose,Whole Blood 122 mg/dL (75-99)
[2019-02-11] MEDS: ATORVASTATIN 40 MG TAB PO SCH (22:33)
[2019-02-11 23:03] LABS: Glucose,Whole Blood 129 mg/dL (75-99)
[2019-02-12 00:04] LABS: Glucose,Whole Blood 161 mg/dL (75-99)
[2019-02-12 01:04] LABS: Glucose,Whole Blood 147 mg/dL (75-99)
[2019-02-12 01:56] LABS: Glucose,Whole Blood 118 mg/dL (75-99)
[2019-02-12 03:03] LABS: Glucose,Whole Blood 108 mg/dL (75-99)
[2019-02-12 04:02] LABS: Glucose,Whole Blood 121 mg/dL (75-99)
[2019-02-12 04:50] LABS: Glucose,Whole Blood 130 mg/dL (75-99)
[2019-02-12 05:02] LABS: Basophils % (A) 0 %; Eosinophils # (A) 0.1 k/uL (0-0.7); Eosinophils % (A) 0 %; HGB 12.3 gm/dL (11.4-16.0); Lymphocytes # (A) 1.1 k/uL (1.0-4.8); Lymphocytes % (A) 5 %; MCH 31.1 pg (25.0-35.0); MCHC 31.6 g/dL (31.0-37.0); MCV 98.4 fL (80.0-100.0); Macrocytosis Slight; Mean Platelet Volume 9.7; Monocytes # (A) 0.7 k/uL (0-1.0); Monocytes % (A) 3 %; Neutrophils # (A) 20.8 k/uL (1.3-7.7); Neutrophils % (A) 90 %; Platelet Count 169 k/uL (150-450); RBC 3.97 m/uL (3.80-5.40); WBC 23.1 k/uL (3.8-10.6)
[2019-02-12 05:07] LABS: Prothrombin Time 10.9 sec (9.0-12.0)
[2019-02-12 05:15] LABS: Calcium 9.5 mg/dL (8.4-10.2); Magnesium 2.4 mg/dL (1.6-2.3); Potassium 4.4 mmol/L (3.5-5.1)
[2019-02-12 05:20] LABS: Vancomycin,Random 18.2 ug/mL
[2019-02-12 06:06] LABS: Glucose,Whole Blood 134 mg/dL (75-99)
[2019-02-12 07:05] LABS: Glucose,Whole Blood 148 mg/dL (75-99)
--- NOTE | 2019-02-12 07:41 | XR ---
EXAMINATION TYPE: XR chest 1V portable DATE OF EXAM: 02/12/2019 Comparison: 02/11/2019 Clinical History: 78-year-old female ICU management Findings: Moderately enlarged. Diffuse interstitial densities persist. Fluid in the minor fissure. Continued sm all left pleural effusion with left basilar opacity. Impression: Continued CHF with pulmonary vascular congestion. Small left effusion with adjacent atelectasis and c onsolidation also persists.
[2019-02-12] MEDS: POTASSIUM CHLORIDE ER 20 MEQ TAB.ER PO SCH (08:35)
[2019-02-12] MEDS: PANTOPRAZOLE 40 MG TABLET PO SCH (08:35)
[2019-02-12] MEDS: APIXABAN 5 MG TAB PO SCH ×2 (08:35→20:24)
[2019-02-12] MEDS: METOPROLOL TARTRATE 25 MG TAB PO SCH ×3 (08:36→23:06)
[2019-02-12] MEDS: LEVOTHYROXINE 100 MCG TAB PO SCH (08:36)
[2019-02-12] MEDS: DOCUSATE 100 MG CAP PO SCH ×2 (08:36→08:46)
[2019-02-12] MEDS: INSULIN ASPART (NovoLOG) 100 UNIT/ML VIAL SQ SCH ×4 (08:37→21:32)
[2019-02-12] MEDS: PIPERACILLIN-TAZOBACTAM 3.375 GM in SODIUM CHLORIDE 0.9% 100 ML IVPB SCH ×3 (08:39→20:25)
[2019-02-12] MEDS: IPRATROPIUM-ALBUTEROL 3 ML NEB INHALATION SCH ×3 (09:32→19:37)
--- NOTE | 2019-02-12 11:03 | PN ---
PROGRESS NOTE DATE OF SERVICE: 02/12/2019 An 78-year-old female who was seen in consultation a couple days ago. She came in with urosepsis and hypotension. She also has a history of congestive heart failure, obesity, hypertension, DVT, chronic kidney disease, diabetes, COPD, sleep apnea syndrome, atrial fibrillation, and bilateral lower extremity cellulitis. Currently, the patient is much improved. Yesterday, we turned down her fluids and gave her some Lasix for impending heart failure. She is receiving 0.9 at 20 mL an hour currently. She is on nasal O2 at 2 L. She is sitting up in the chair. Her chest x-ray does show evidence of fluid overload. Also, she was being underdosed on her Synthroid, so we bumped her dose from 75 to 100 mcg. This should help as well. She is feeling well today. No major complaints. Never required norepinephrine or Cardizem drip as initially anticipated. Current vital signs are reviewed, temperature is 98.3, heart rate is about 100 and irregular, respiratory rate 19, blood pressure was 91/63 mean 72, saturations are excellent at 94% on room air and 96% on 2 L. Appears in no acute distress. HEENT: Examination is grossly unremarkable. Nasal O2 in place. NECK: Supple. Full range of motion. No adenopathy. CARDIOVASCULAR: Examination reveals a regular rhythm and rate. Heart rate about 100. S1, S2 normal. No distinct murmur. Heart sounds are distant. LUNGS: Reveal some bibasilar crackles. Breath sounds equal bilaterally. No wheezes or rhonchi. ABDOMEN: Soft, but obese. EXTREMITIES: Intact. There is some bilateral lower extremity edema. Legs are wrapped. There is some chronic venostasis changes and hyperpigmentation noted. There is also some diffuse erythema. SKIN: Without rash. NEUROLOGIC: Examination is nonfocal. White count 23.1, hemoglobin 12.3, hematocrit 39.0, platelet count 169,000. PT, INR normal. Sodium, potassium, chloride, CO2 all normal. Anion gap normal. BUN and creatinine were 57 and 1.40. Magnesium 2.4. Chest x-ray was reviewed. Microbiology is negative for both in the form of blood and urine culturing. MEDICATIONS: Reviewed. Currently, she is on Tylenol, Eliquis, Lipitor, Colace, insulin, updrafts, levothyroxine, magnesium protocol, metoprolol, Narcan, Protonix, Zosyn, potassium replacement, silver sulfadiazine cream, tramadol, and vancomycin. ASSESSMENT: 1. Suspected urinary tract infection/urosepsis with hypotension and septic shock, improved, cultures pending. 2. Congestive heart failure with worsening excess fluid status, now improved on diuretics. 3. Obesity. 4. Benign essential hypertension. 5. History of deep venous thrombosis. 6. History of chronic kidney disease. 7. Diabetes mellitus. 8. Chronic obstructive pulmonary disease. 9. History of previous tobacco use. 10.History of sleep apnea syndrome. 11.History of atrial fibrillation. 12.Bilateral lower extremity cellulitis and lymphedema, left leg worse than right. PLAN: Currently, the patient is stable. She can be transferred out to [address] [place] [address]. Her chest x- ray shows fluid overload. Will continue with the diuretics. Continue with antibiotics. Cultures are currently pending or negative. Her overall status has improved. Will continue to follow. MMODL / IJN: [id number] /
[2019-02-12] MEDS: AMIODARONE 200 MG TAB PO SCH ×2 (11:20→20:24)
[2019-02-12] MEDS: VANCOMYCIN 1,750 MG in SODIUM CHLORIDE 0.9% 500 ML 500 ML IVPB SCH (11:20)
[2019-02-12 11:35] LABS: Glucose,Whole Blood 232 mg/dL (75-99)
--- NOTE | 2019-02-12 15:33 | P.PN ---
Subjective On-call hospitalist covering for Dr. vega over the long weekend From the records Tamar Dominguez is an 78 yo F with PMH significant for diastolic CHF, A fib, T2DM, hx DVT, hypothyroid who presented to the ED with weakness, chills and malaise. History obtained via pt and son. Son states that pt ran out of her metolazone a few days ago and has been having more difficulty ambulating and feeling more weak. She had not been able to walk to the bathroom and had been noticing increasing cough. Yesterday pt began to experience chills and nausea in addition to worsening weakness. Due to this she came in to the ED. No sick contacts at home. Son has been wrapping wound on LLE which he states had become more red and tender over the same interval. In the ED, temp on admission 99.7, BP stable, HR in 150s. WBC 40k, Cr 1.5, INR subtherpeutic at 1.0, CXR with interstitial prominence, UA with large LE and nitrite. Trop negative. Pt given dose of rocephin and started on cardizem for RVR. 02/11. Pt became hypotensive yesterday am and was transferred to ICU and started on solucortef and given IVF. Her cardizem has been discontinued and her HR is c ontrolled with metoprolol. ID evaluated pt and agreeable with current abx in addition to local wound care. Pt feeling better today but still weak and short of breath. Subjective: 02/12/2019 Patient is seen and examined today in the ICU. She is 79 years old female who presents with weakness and found to have A. fib with uncontrolled heart rate and tachycardia. Patient was started on amiodarone today. Also patient continue on Zosyn and vancomycin for possible sepsis and urosepsis. Lactic acid was elevated and patient received IV fluid which is back to normal at 1.5. Patient also was on insulin drip and switched to insulin sliding scale. Sugar is controlled. Creatinine 1.4. WBC 20 3.1K. Cultures none Proteus and E. coli. Patient is having diarrhea today. We will check for C. diff Objective - Vital Signs Vital signs: Vital Signs Temp 97.7 F 02/12/19 08:00 Pulse 100 02/12/19 12:54 Resp 21 02/12/19 08:00 BP 102/44 02/12/19 08:00 Pulse Ox 96 02/12/19 08:00 Intake & Output 02/11/19 02/12/19 02/12/19 18:59 06:59 18:59 Intake Total 1588.429 237.218 930 Output Total 995 480 650 Balance 593.429 -242.782 280 Weight 123 kg Intake: IV 1120 190 690 0.9 sodium chloride 20 90 90 Insulin Regular 100 unit 0 In Sodium Chloride 0.9% 100 ml @ Per Protocol IV .Q0M [facility] Rx#:[id number] Magnesium Sulfate-D5w Pmx 300 1 gm In Dextrose/Water 1 100ml.bag @ 100 mls/hr IVPB Q1H [facility] Rx#: [id number] Piperacillin-Tazobactam 3 100 100 100 .375 gm In Sodium Chloride 0.9% 100 ml @ 25 mls/hr IVPB Q8H [facility] Rx#: [id number] Sodium Chloride 0.9% 1, 200 000 ml @ 100 mls/hr IV . Q10H [facility] Rx#:[id number] Vancomycin 1,750 mg In 500 500 Sodium Chloride 0.9% 500 ml 500 ml @ 167 mls/hr IVPB [facility] Rx#: [id number] Intake, IV Titration 48.429 47.218 Amount Insulin Regular 100 unit 0 In Sodium Chloride 0.9% 100 ml @ Per Protocol IV .Q0M [facility] Rx#:[id number] Insulin Regular 100 unit 48.429 47.218 In Sodium Chloride 0.9% 100 ml @ Per Protocol IV .Q0M [facility] Rx#:[id number] Oral 420 240 Output: Urine 995 480 650 Other: Voiding Method Indwelling Catheter Indwelling Catheter Indwelling Catheter # Bowel Movements 1 - Exam GENERAL: The patient is alert and oriented x3, not in any acute distress. Obese HEENT: Pupils are round and equally reacting to light. EOMI. No scleral icterus. No conjunctival pallor. Normocephalic, atraumatic. No pharyngeal erythema. No thyromegaly. CARDIOVASCULAR: S1 and S2 present. No murmurs, rubs, or gallops. PULMONARY: Chest is clear to auscultation, no wheezing or crackles. -ABDOMEN: Soft, nontender, nondistended, normoactive bowel sounds. No palpable organomegaly. Hayes catheter is in place MUSCULOSKELETAL: No joint swelling or deformity. EXTREMITIES: No cyanosis, clubbing, or pedal edema. NEUROLOGICAL: Gross neurological examination did not reveal any focal deficits. SKIN: No rashes. - Labs CBC & Chem 7: 02/12/19 04:44 02/12/19 04:44 Labs: Abnormal Lab Results - Last 24 Hours (Table) 02/11/19 02/11/19 02/11/19 Range/Units 16:31 17:37 18:11 WBC (3.8-10.6) k/uL RDW (11.5-15.5) % Neutrophils # (1.3-7.7) k/uL BUN (7-17) mg/dL Creatinine (0.52-1.04) mg/dL Glucose (74-99) mg/dL POC Glucose (mg/dL) 199 H 193 H 245 H (75-99) mg/dL Magnesium (1.6-2.3) mg/dL 02/11/19 02/11/19 02/11/19 Range/Units 19:08 19:53 21:01 WBC (3.8-10.6) k/uL RDW (11.5-15.5) % Neutrophils # (1.3-7.7) k/uL BUN (7-17) mg/dL Creatinine (0.52-1.04) mg/dL Glucose (74-99) mg/dL POC Glucose (mg/dL) 213 H 169 H 138 H (75-99) mg/dL Magnesium (1.6-2.3) mg/dL 02/11/19 02/11/19 02/12/19 Range/Units 21:59 23:01 00:02 WBC (3.8-10.6) k/uL RDW (11.5-15.5) % Neutrophils # (1.3-7.7) k/uL BUN (7-17) mg/dL Creatinine (0.52-1.04) mg/dL Glucose (74-99) mg/dL POC Glucose (mg/dL) 122 H 129 H 161 H (75-99) mg/dL Magnesium (1.6-2.3) mg/dL 02/12/19 02/12/19 02/12/19 Range/Units 01:02 01:54 03:01 WBC (3.8-10.6) k/uL RDW (11.5-15.5) % Neutrophils # (1.3-7.7) k/uL BUN (7-17) mg/dL Creatinine (0.52-1.04) mg/dL Glucose (74-99) mg/dL POC Glucose (mg/dL) 147 H 118 H 108 H (75-99) mg/dL Magnesium (1.6-2.3) mg/dL 02/12/19 02/12/19 02/12/19 Range/Units 04:00 04:44 04:44 WBC 23.1 H (3.8-10.6) k/uL RDW 16.0 H (11.5-15.5) % Neutrophils # 20.8 H (1.3-7.7) k/uL BUN 57 H (7-17) mg/dL Creatinine 1.40 H (0.52-1.04) mg/dL Glucose 134 H (74-99) mg/dL POC Glucose (mg/dL) 121 H (75-99) mg/dL Magnesium 2.4 H (1.6-2.3) mg/dL 02/12/19 02/12/19 02/12/19 Range/Units 04:48 06:04 07:03 WBC (3.8-10.6) k/uL RDW (11.5-15.5) % Neutrophils # (1.3-7.7) k/uL BUN (7-17) mg/dL Creatinine (0.52-1.04) mg/dL Glucose (74-99) mg/dL POC Glucose (mg/dL) 130 H 134 H 148 H (75-99) mg/dL Magnesium (1.6-2.3) mg/dL 02/12/19 Range/Units 11:33 WBC (3.8-10.6) k/uL RDW (11.5-15.5) % Neutrophils # (1.3-7.7) k/uL BUN (7-17) mg/dL Creatinine (0.52-1.04) mg/dL Glucose (74-99) mg/dL POC Glucose (mg/dL) 232 H (75-99) mg/dL Magnesium (1.6-2.3) mg/dL Microbiology - Last 24 Hours (Table) 02/10/19 08:35 Blood Culture - Preliminary Blood No Growth after 48 hours 02/10/19 01:00 Urine Culture - Final Urine,Clean Catch Proteus mirabilis Escherichia coli Assessment and Plan Assessment: Severe sepsis Cellulitis of the left lower extremity Acute kidney injury Acute on chronic diastolic heart failure A. fib with RVR Leukocytosis Acute urinary tract infection Diabetes mellitus Plan: This is a pleasant 6 years old female who presents with severe sepsis and CHF. Also she is afebrile with RVR. Patient is on metoprolol and amiodarone. Cardiology are following the case. Pulmonary/critical care team also on the case. Continue with broad-spectrum antibiotics and follow the culture results. Patient does have diarrhea and we'll check C. diff.Labs and medication were reviewed.. Continue same treatment. Continue with symptomatic treatment. Resume home medication. Monitor lytes and vitals. DVT and GI prophylaxis. Further recommendations of the clinical course of the patient DVT prophylaxis: Eliquis GI Prophylaxis: Pepcid PT/OT: Pending Prognosis is guarded
[2019-02-12 17:09] LABS: Glucose,Whole Blood 162 mg/dL (75-99)
[2019-02-12] MEDS: FAMOTIDINE 20 MG/2 ML VIAL IV SCH (20:20)
[2019-02-12] MEDS: ATORVASTATIN 40 MG TAB PO SCH (20:24)
--- NOTE | 2019-02-12 20:36 | PN ---
PROGRESS NOTE Tamar is an 78-year-old lady who is admitted to ICU with sepsis secondary to urinary tract infection and also has dyspnea and diuretics are being managed by the senior premium auditor. Had an echocardiogram that shows normal LV function with moderate pulmonary hypertension. The patient has atrial fibrillation. Heart rate is better controlled this morning. She has cellulitis with chronic bilateral leg edema related to that. On exam, patient is comfortable at rest. Heart rate is in the 110s to 120s per minute. Blood pressure is 102/44, respiratory rate 18. Chest exam reveals diminished air entry at the bases. Heart exam reveals first and second heart sounds, irregular rhythm. Abdomen is soft. Exam of extremities reveals bilateral moderate edema with chronic stasis changes and cellulitis. ASSESSMENT: Chronic atrial fibrillation with poorly controlled ventricular rate. The patient is currently on Lopressor 25 t.i.d. and heart rate is still poorly controlled. Blood pressures are marginal. There are times she is hypotensive. I am going to add Cordarone 200 b.i.d. primarily for rate control. MMODL / IJN: [id number] /
[2019-02-12] MEDS ORDERED: FAMOTIDINE 20 MG/2 ML VIAL IV SCH (21:00)
[2019-02-12 21:29] LABS: Glucose,Whole Blood 197 mg/dL (75-99)
[2019-02-13] MEDS: PIPERACILLIN-TAZOBACTAM 3.375 GM in SODIUM CHLORIDE 0.9% 100 ML IVPB SCH ×3 (04:47→20:15)
[2019-02-13 05:39] LABS: Basophils % (A) 0 %; Eosinophils # (A) 0.2 k/uL (0-0.7); Eosinophils % (A) 1 %; HCT 38.9 % (34.0-46.0); HGB 12.4 gm/dL (11.4-16.0); Hypochromasia Slight; Lymphocytes # (A) 1.3 k/uL (1.0-4.8); Lymphocytes % (A) 7 %; MCH 31.3 pg (25.0-35.0); MCHC 31.8 g/dL (31.0-37.0); MCV 98.5 fL (80.0-100.0); Macrocytosis Slight; Monocytes # (A) 0.8 k/uL (0-1.0); Monocytes % (A) 4 %; Neutrophils # (A) 15.3 k/uL (1.3-7.7); Neutrophils % (A) 86 %; Platelet Count 183 k/uL (150-450); RBC 3.95 m/uL (3.80-5.40); RDW 15.9 % (11.5-15.5); WBC 17.8 k/uL (3.8-10.6)
[2019-02-13 05:47] LABS: INR 0.9 (<1.2); Prothrombin Time 9.8 sec (9.0-12.0)
[2019-02-13 05:48] LABS: Calcium 9.6 mg/dL (8.4-10.2); Potassium 4.6 mmol/L (3.5-5.1)
[2019-02-13] MEDS: LEVOTHYROXINE 100 MCG TAB PO SCH (06:18)
[2019-02-13 06:54] LABS: Glucose,Whole Blood 158 mg/dL (75-99)
[2019-02-13] MEDS: INSULIN ASPART (NovoLOG) 100 UNIT/ML VIAL SQ SCH ×4 (06:57→20:14)
[2019-02-13] MEDS ORDERED: FUROSEMIDE 10 MG/ML 4 ML VIAL IV STA (07:14)
[2019-02-13] MEDS: IPRATROPIUM-ALBUTEROL 3 ML NEB INHALATION SCH ×3 (07:24→19:53)
[2019-02-13] MEDS: PANTOPRAZOLE 40 MG TABLET PO SCH (07:59)
[2019-02-13] MEDS: traMADol 50 MG TAB PO PRN (07:59)
[2019-02-13] MEDS: POTASSIUM CHLORIDE ER 20 MEQ TAB.ER PO SCH (08:01)
[2019-02-13] MEDS: APIXABAN 5 MG TAB PO SCH ×2 (08:01→20:14)
[2019-02-13] MEDS: AMIODARONE 200 MG TAB PO SCH ×2 (08:01→20:14)
[2019-02-13] MEDS: DOCUSATE 100 MG CAP PO SCH (08:02)
[2019-02-13] MEDS: METOPROLOL TARTRATE 25 MG TAB PO SCH ×3 (08:02→20:14)
--- NOTE | 2019-02-13 09:56 | PN ---
PROGRESS NOTE DATE OF SERVICE: 02/13/2019 This is an 78-year-old female who was seen in consultation 3 or 4 days ago. She initially came into the hospital with urosepsis and hypotension. She has a history of congestive heart failure, obesity, hypertension, DVT, chronic kidney disease, diabetes, COPD, sleep apnea syndrome, atrial fibrillation, and bilateral lower extremity cellulitis. Currently, the patient is much improved. She is on 2 L nasal cannula. Her IV saline at 20 mL an hour. I am going to drop her updrafts to t.i.d. and p.r.n. because it may be contributing to her chronic atrial fibrillation. Her heart rate is about 120 beats per minute. I did ask the nurses to give her some additional Lasix, 40 mg IV push x1. She is sitting up in the chair eating her breakfast. She states she is much improved. Her lower extremities are wrapped with Myles bandages. She never required norepinephrine for her hypertension or IV Cardizem for her atrial fibrillation. PHYSICAL EXAMINATION: VITAL SIGNS: Current vital signs are reviewed. Temperature 98, heart rate 120, respiratory rate 16, blood pressure 118/99, mean 105, 2 L saturations 94%. Appears no acute distress. HEENT examination is grossly unremarkable. Nasal O2 noted. NECK: Supple. Full range of motion. No adenopathy. CARDIOVASCULAR examination reveals a regular rhythm rate. Heart rate about 120 beats per minute. She is clearly in atrial fibrillation. Heart sounds are distant. LUNGS: Bibasilar crackles. No wheezes or rhonchi. Breath sounds equal but diminished throughout. ABDOMEN: Obese. EXTREMITIES reveal chronic edema and cellulitis. Her edema is pitting. Legs are wrapped with the Myles bandages. SKIN: Without rash. NEUROLOGIC examination is nonfocal. She is awake and alert. LAB DATA: White count 17.8, hemoglobin 12.4, hematocrit 38.9, platelet count 183,000. PT/INR normal. Sodium, potassium, chloride, CO2 all normal. BUN and creatinine were 59 and 1.48. Microbiologic study show evidence of both Proteus mirabilis and E coli in the urine. Chest x-ray shows evidence of fluid overload, hence, the Lasix IV. Medications are reviewed as they have been every day. ASSESSMENT: 1. Suspected urinary tract infection/urosepsis, with hypotension and septic shock, secondary to Proteus mirabilis and Escherichia coli. 2. Congestive heart failure with worsening excess fluid status, now improved on diuretics. 3. Obesity. 4. Benign essential hypertension. 5. History of deep venous thrombosis. 6. History of chronic kidney disease. 7. Diabetes mellitus. 8. Chronic obstructive pulmonary disease. 9. Previous tobacco use. 10.History of sleep apnea syndrome. 11.Chronic atrial fibrillation. 12.Bilateral lower extremity cellulitis and lymphedema. PLAN: Currently, the patient seems to be doing much better. She remains on Zosyn and vancomycin. Vancomycin primarily for lower extremity cellulitis. Both the Proteus mirabilis and Escherichia coli are sensitive to Zosyn. The patient gets 1 extra dose of Lasix. We will continue to monitor her renal function. Her oxygen requirements have dropped. We are going to cut back on her updrafts to t.i.d. and p.r.n. as it may be contributing to her chronic atrial fibrillation. Additional recommendations and suggestions forthcoming. She is an overflow patient. She could be transferred out of the unit. MMMATTL / JORDYN: [id number] /
--- NOTE | 2019-02-13 10:05 | XR ---
EXAMINATION TYPE: XR chest 1V portable DATE OF EXAM: 02/13/2019 COMPARISON: Chest radiograph 02/12/2019 HISTORY: ICU management TECHNIQUE: Single frontal view of the chest is obtained. FINDINGS: Cardiomediastinal silhouette is stably enlarged. Mild pulmonary vascular congestion. Low l harsha volumes. Bibasilar opacities may represent small pleural effusion and/or atelectasis. Right mid l harsha field subsegmental atelectasis noted. IMPRESSION: 1. Stable mild pulmonary vascular congestion and small left pleural effusion and/or atelectasis. 2. Minimally increased right basilar opacification either from small pleural effusion and/or atelecta sis.
[2019-02-13 11:51] LABS: Glucose,Whole Blood 200 mg/dL (75-99)
[2019-02-13] MEDS: GLIMEPIRIDE 1 MG TAB PO SCH (12:18)
--- NOTE | 2019-02-13 12:56 | P.PN ---
Subjective On-call hospitalist covering for Dr. vega over the long weekend From the records Tamar Dominguez is an 78 yo F with PMH significant for diastolic CHF, A fib, T2DM, hx DVT, hypothyroid who presented to the ED with weakness, chills and malaise. History obtained via pt and son. Son states that pt ran out of her metolazone a few days ago and has been having more difficulty ambulating and feeling more weak. She had not been able to walk to the bathroom and had been noticing increasing cough. Yesterday pt began to experience chills and nausea in addition to worsening weakness. Due to this she came in to the ED. No sick contacts at home. Son has been wrapping wound on LLE which he states had become more red and tender over the same interval. In the ED, temp on admission 99.7, BP stable, HR in 150s. WBC 40k, Cr 1.5, INR subtherpeutic at 1.0, CXR with interstitial prominence, UA with large LE and nitrite. Trop negative. Pt given dose of rocephin and started on cardizem for RVR. 02/11. Pt became hypotensive yesterday am and was transferred to ICU and started on solucortef and given IVF. Her cardizem has been discontinued and her HR is c ontrolled with metoprolol. ID evaluated pt and agreeable with current abx in addition to local wound care. Pt feeling better today but still weak and short of breath. Subjective: 02/12/2019 Patient is seen and examined today in the ICU. She is 79 years old female who presents with weakness and found to have A. fib with uncontrolled heart rate and tachycardia. Patient was started on amiodarone today. Also patient continue on Zosyn and vancomycin for possible sepsis and urosepsis. Lactic acid was elevated and patient received IV fluid which is back to normal at 1.5. Patient also was on insulin drip and switched to insulin sliding scale. Sugar is controlled. Creatinine 1.4. WBC 20 3.1K. Cultures none Proteus and E. coli. Patient is having diarrhea today. We will check for C. diff 02/13/2019 Patient is awake and oriented. She denies chest pain or dyspnea. She has Hayes catheter. No suprapubic tenderness. She has loose bowel movement only once a day. She slipped tachypneic with a dry cough. Vitals reviewed showing patient is afebrile, with tachycardia 107, blood pressure 94/74. WBC is trending down to 17.8 K. Creatinine 1.48. Chest x-ray showing stable vascular congestion, minimally increased right basilar opacification. Pulmonary/critical care team are following the patient closely. She remains on Zosyn and vancomycin. Review of systems CONSTITUTIONAL: No fever, no malaise, no fatigue. HEENT: No recent visual problems or hearing problems. Denied any sore throat. CARDIOVASCULAR: , no syncope. PULMONARY: no hemoptysis. GASTROINTESTINAL: no nausea, no vomiting, no abdominal pain. Normoactive bowel sounds. NEUROLOGICAL: No headaches, no weakness, no numbness. HEMATOLOGICAL: Denies any bleeding or petechiae. GENITOURINARY: Denies any burning micturition, frequency, or urgency. MUSCULOSKELETAL/RHEUMATOLOGICAL: Denies any joint pain, swelling, or any muscle pain. ENDOCRINE: Denies any polyuria or polydipsia. Active Medications Generic Name Dose Route Start Last Admin Trade Name Freq PRN Reason Stop Dose Admin Acetaminophen 650 mg 02/10/19 11:23 02/10/19 11:27 Tylenol Tab PO 650 mg Q4HR PRN Administration Fever and/ or MILD Pain Albuterol/Ipratropium 3 ml 02/10/19 14:15 Duoneb 0.5 Mg-3 Mg/3 Ml Soln INHALATION RT-TID PRN Shortness Of Breath Or Wheezing Albuterol/Ipratropium 3 ml 02/10/19 20:00 02/13/19 07:24 Duoneb 0.5 Mg-3 Mg/3 Ml Soln INHALATION 3 ml RT-TID ANATOLY Administration Amiodarone HCl 200 mg 02/12/19 11:15 02/13/19 08:01 Cordarone PO 200 mg BID ANATOLY Administration Apixaban 5 mg 02/10/19 12:30 02/13/19 08:01 Eliquis PO 5 mg BID ANATOLY Administration Atorvastatin Calcium 40 mg 02/10/19 21:00 02/12/19 20:24 Lipitor PO 40 mg HS ANATOLY Administration Docusate Sodium 100 mg 02/12/19 09:00 02/13/19 08:02 Colace PO Not Given DAILY ANATOLY Famotidine 20 mg 02/12/19 21:00 02/12/19 20:20 Pepcid IV 20 mg HS ANATOLY Administration Glimepiride 1 mg 02/13/19 11:00 02/13/19 12:18 Amaryl PO 1 mg AC-BRKFST ANATOLY Administration Piperacillin Sod/Tazobactam 100 mls @ 25 mls/hr 02/10/19 12:00 02/13/19 12:18 Sod 3.375 gm/ Sodium Chloride IVPB 25 mls/hr Q8H ANATOLY Administration Vancomycin HCl 1,750 mg/ 500 mls @ 167 mls/hr 02/12/19 12:00 02/12/19 11:20 Sodium Chloride IVPB 167 mls/hr Q36H ANATOLY Administration Insulin Aspart 0 unit 02/12/19 12:30 02/13/19 12:19 Novolog SQ 3 unit ACHS ANATOLY Administration Protocol Levothyroxine Sodium 100 mcg 02/12/19 06:30 02/13/19 06:18 Synthroid PO 100 mcg 0630 ANATOLY Administration Metoprolol Tartrate 25 mg 02/11/19 09:00 02/13/19 08:02 Lopressor PO 25 mg TID ANATOLY Administration Miscellaneous Information 1 each 02/11/19 10:16 Magnesium Per Protocol MISCELLANE DAILY PRN Per Protocol Protocol Naloxone HCl 0.2 mg 02/10/19 06:26 Narcan IV Q2M PRN Opioid Reversal Pantoprazole Sodium 40 mg 02/11/19 07:30 02/13/19 07:59 Protonix PO 40 mg AC-BRKFST ANATOLY Administration Potassium Chloride 40 meq 02/11/19 09:00 02/13/19 08:01 K-Dur 20 PO 40 meq DAILY ANATOLY Administration Silver Sulfadiazine 1 applic 02/11/19 21:00 02/12/19 21:34 Silvadene Cream TOPICAL 1 applic HS ANATOLY Administration Tramadol HCl 50 mg 02/10/19 10:47 02/13/19 07:59 Ultram PO 50 mg DAILY PRN Administration MODERATE Pain Objective - Vital Signs Vital signs: Vital Signs Temp 98 F 02/13/19 12:00 Pulse 107 H 02/13/19 12:00 Resp 22 02/13/19 12:00 BP 94/74 02/13/19 12:00 Pulse Ox 96 02/13/19 12:00 Intake & Output 02/12/19 02/13/19 02/13/19 18:59 06:59 18:59 Intake Total 930 940 640 Output Total 650 595 725 Balance 280 345 -85 Intake: IV 690 440 160 0.9 sodium chloride 90 240 60 Piperacillin-Tazobactam 3 100 200 100 .375 gm In Sodium Chloride 0.9% 100 ml @ 25 mls/hr IVPB Q8H [facility] Rx#: [id number] Vancomycin 1,750 mg In 500 Sodium Chloride 0.9% 500 ml 500 ml @ 167 mls/hr IVPB ONCE ONE Rx#: [id number] Oral 240 500 480 Output: Urine 650 595 725 Other: Voiding Method Indwelling Catheter Indwelling Catheter Indwelling Catheter # Bowel Movements 1 1 - Exam GENERAL: The patient is alert and oriented x3, not in any acute distress. Obese HEENT: Pupils are round and equally reacting to light. EOMI. No scleral icterus. No conjunctival pallor. Normocephalic, atraumatic. No pharyngeal erythema. No thyromegaly. CARDIOVASCULAR: S1 and S2 present. No murmurs, rubs, or gallops. PULMONARY: Chest is clear to auscultation, no wheezing or crackles. -ABDOMEN: Soft, nontender, nondistended, normoactive bowel sounds. No palpable organomegaly. Hayes catheter is in place MUSCULOSKELETAL: No joint swelling or deformity. EXTREMITIES: No cyanosis, clubbing, or pedal edema. NEUROLOGICAL: Gross neurological examination did not reveal any focal deficits. SKIN: No rashes. - Labs CBC & Chem 7: 02/13/19 05:20 02/13/19 05:20 Labs: Abnormal Lab Results - Last 24 Hours (Table) 02/12/19 02/12/19 02/13/19 Range/Units 17:08 21:27 05:20 WBC 17.8 H (3.8-10.6) k/uL RDW 15.9 H (11.5-15.5) % Neutrophils # 15.3 H (1.3-7.7) k/uL BUN (7-17) mg/dL Creatinine (0.52-1.04) mg/dL Glucose (74-99) mg/dL POC Glucose (mg/dL) 162 H 197 H (75-99) mg/dL 09/07/0302/13/19 02/13/19 Range/Units 05:20 06:52 11:49 WBC (3.8-10.6) k/uL RDW (11.5-15.5) % Neutrophils # (1.3-7.7) k/uL BUN 59 H (7-17) mg/dL Creatinine 1.48 H (0.52-1.04) mg/dL Glucose 169 H (74-99) mg/dL POC Glucose (mg/dL) 158 H 200 H (75-99) mg/dL Microbiology - Last 24 Hours (Table) 02/10/19 08:35 Blood Culture - Preliminary Blood No Growth after 72 hours 02/10/19 01:00 Urine Culture - Final Urine,Clean Catch Proteus mirabilis Escherichia coli Assessment and Plan Assessment: Severe sepsis Cellulitis of the left lower extremity Acute kidney injury Acute on chronic diastolic heart failure A. fib with RVR Leukocytosis Acute urinary tract infection Diabetes mellitus Plan: This is a pleasant 6 years old female who presents with severe sepsis and CHF. Also she is afebrile with RVR. Patient is on metoprolol and amiodarone. Cardiology are following the case. Pulmonary/critical care team also on the case. Continue with broad-spectrum antibiotics and follow the culture results. Patient does have diarrhea and we'll check C. diff.Labs and medication were reviewed.. Continue same treatment. Continue with symptomatic treatment. Resume home medication. Monitor lytes and vitals. DVT and GI prophylaxis. Further recommendations of the clinical course of the patient DVT prophylaxis: Eliquis GI Prophylaxis: Pepcid PT/OT: Pending Prognosis is guarded
[2019-02-13 16:47] LABS: Glucose,Whole Blood 206 mg/dL (75-99)
[2019-02-13 20:09] LABS: Glucose,Whole Blood 160 mg/dL (75-99)
[2019-02-13] MEDS: ATORVASTATIN 40 MG TAB PO SCH (20:14)
[2019-02-13] MEDS: FAMOTIDINE 20 MG/2 ML VIAL IV SCH (20:14)
--- NOTE | 2019-02-13 22:41 | PN ---
PROGRESS NOTE DATE OF SERVICE: An 78-year-old lady who has atrial fibrillation, heart rate is better controlled on the amiodarone that I started yesterday. She is on Lopressor, Synthroid, insulin, Lipitor, Eliquis 5 b.i.d. PHYSICAL EXAM: On exam, heart rate is around 100 to 110 beats per minute, irregular. Blood pressure is 106/69, respiratory rate 18. Chest exam reveals good air entry bilaterally. Heart exam reveals first and second heart sounds, irregular rhythm and a systolic murmur at the left lower sternal border. Abdomen is soft. Exam of extremities did not reveal any edema. Peripheral pulses are felt. ASSESSMENT: Chronic atrial fibrillation with better controlled ventricular rate on amiodarone. We will continue current medications. LUAN / JORDYN: [id number] /
[2019-02-14] MEDS: VANCOMYCIN 1,750 MG in SODIUM CHLORIDE 0.9% 500 ML 500 ML IVPB SCH (00:14)
[2019-02-14] MEDS: PIPERACILLIN-TAZOBACTAM 3.375 GM in SODIUM CHLORIDE 0.9% 100 ML IVPB SCH ×3 (05:41→20:27)
[2019-02-14] MEDS: INSULIN ASPART (NovoLOG) 100 UNIT/ML VIAL SQ SCH ×4 (06:30→20:28)
[2019-02-14] MEDS: LEVOTHYROXINE 100 MCG TAB PO SCH (06:30)
[2019-02-14] MEDS: PANTOPRAZOLE 40 MG TABLET PO SCH (06:30)
[2019-02-14] MEDS: GLIMEPIRIDE 1 MG TAB PO SCH (06:30)
[2019-02-14 06:57] LABS: Glucose,Whole Blood 102 mg/dL (75-99)
[2019-02-14] MEDS: IPRATROPIUM-ALBUTEROL 3 ML NEB INHALATION SCH ×3 (07:46→19:35)
--- NOTE | 2019-02-14 08:50 | P.PN ---
Subjective Progress Note Date: 02/14/19 Principal diagnosis: Urinary tract infection, with hypotension and septic shock secondary to Proteus mirabilis and E. coli, congestive heart failure with worsening excess fluid On 02/14/2019 patient seen in follow-up on selective care unit, she is awake and alert, she is up on the commode, in no acute distress, she denies any difficulty breathing, does remain on supplemental oxygen, 2 L, with a pulse ox of 96%, she has been afebrile, denies any chills, denies any cough or c ongestion, lung sounds reveal some crackles at the right lower base posteriorly, no wheezing, no rhonchi, today's labs have been reviewed, and as a down trend in the white blood cell count down to 17.8 from 23.1 on yesterday's labs, hemoglobin is 12.4, electrolytes are within normal limits, today's creatinine is 1.39, slight improvement from yesterday's labs, vital signs are stable, hemodynamically patient remains stable. Patient is on Zosyn and vancomycin, urine culture was positive for E. coli and Proteus mirabilis, and both are sensitive to Zosyn. Blood cultures showed no growth at the 72 hour konstantin. Still has significant amount of lower extremity edema, lower extremities Myles wrapped. Patient received extra dose of Lasix yesterday, will start the patient on oral Lasix, 40 mg twice daily. Objective - Vital Signs Vital signs: Vital Signs Temp 97.1 F L 02/14/19 07:58 Pulse 76 02/14/19 08:00 Resp 18 02/14/19 07:58 BP 148/76 02/14/19 07:58 Pulse Ox 96 02/14/19 07:58 Intake & Output 02/13/19 02/14/19 02/14/19 18:59 06:59 18:59 Intake Total 960 900 340 Output Total 1275 450 Balance -315 900 -110 Weight 123.4 kg Intake: IV 240 600 100 0.9 sodium chloride 140 Piperacillin-Tazobactam 3 100 100 100 .375 gm In Sodium Chloride 0.9% 100 ml @ 25 mls/hr IVPB Q8H [facility] Rx#: [id number] Vancomycin 1,750 mg In 500 Sodium Chloride 0.9% 500 ml 500 ml @ 167 mls/hr IVPB ONCE ONE Rx#: [id number] Oral 720 300 240 Output: Urine 1275 450 Other: Voiding Method Indwelling Catheter Indwelling Catheter Indwelling Catheter # Bowel Movements 1 1 - Exam GENERAL EXAM: Alert, pleasant, 78-year-old obese white female, on 2 L of oxygen comfortable in no apparent distress. HEAD: Normocephalic/atraumatic. EYES: Normal reaction of pupils, equal size. Conjunctiva pink, sclera white. NOSE: Clear with pink turbinates. THROAT: No erythema or exudates. NECK: No masses, no JVD, no thyroid enlargement, no adenopathy. CHEST: No chest wall deformity. Symmetrical expansion. LUNGS: Equal air entry with lumbar crackles at the right lower lobe, p osteriorly, but no wheeze, rhonchi or dullness. CVS: Regular rate and rhythm, normal S1 and S2, no gallops, no murmurs, no rubs ABDOMEN: Soft, nontender. No hepatosplenomegaly, normal bowel sounds, no guarding or rigidity. EXTREMITIES: No clubbing, 2+ lower extremity edema lower extremities are myles wrapped no cyanosis, 2+ pulses and upper and lower extremities. MUSCULOSKELETAL: Muscle strength and tone normal. SPINE: No scoliosis or deformity SKIN: No rashes CENTRAL NERVOUS SYSTEM: Alert and oriented -3. No focal deficits, tone is normal in all 4 extremities. PSYCHIATRIC: Alert and oriented -3. Appropriate affect. Intact judgment and insight. - Labs CBC & Chem 7: 02/13/19 05:20 02/14/19 07:15 Labs: Abnormal Lab Results - Last 24 Hours (Table) 02/13/19 02/13/19 02/13/19 Range/Units 11:49 16:45 19:57 Creatinine (0.52-1.04) mg/dL POC Glucose (mg/dL) 200 H 206 H 160 H (75-99) mg/dL 02/14/19 02/14/19 Range/Units 06:30 07:15 Creatinine 1.39 H (0.52-1.04) mg/dL POC Glucose (mg/dL) 102 H (75-99) mg/dL Microbiology - Last 24 Hours (Table) 02/10/19 08:35 Blood Culture - Preliminary Blood No Growth after 72 hours Assessment and Plan Plan: Assessment: #1. Acute urinary tract infection with septic shock secondary to Proteus mirabilis and ischial brachial coli #2. Congestive heart failure with worsening excess fluid status, now improved with diuretics, echo showed low normal left ventricle systolic function with an EF of 50-55%, mild mitral, mild tricuspid regurgitation, and mild to moderate pulmonary hypertension #3. Morbid obesity #4. Benign essential hypertension #5. History of DVT #6. History of chronic kidney disease unspecified #7. Diabetes mellitus type 2 #8. Chronic obstructive pulmonary disease #9. Previous history of tobacco use #10. History of sleep apnea syndrome #11. Chronic atrial fibrillation on Eliquis #12. Bilateral lower extremity cellulitis and lymphedema Plan: We will start patient on oral Lasix, 40 mg twice daily, continue oral anticoagulation, continue with daily weights, daily labs, electrolytes and renal profile. Continue antibiotics per ID service recommendations, clinically patient is stable, she is on 2 L of oxygen, she's been afebrile, no fever or chills, no cough or congestion. Continue nebulized bronchodilators. I performed a history & physical examination of the patient and discussed their management with my nurse practitioner, Sana Villalta. I reviewed the nurse practitioner's note and agree with the documented findings and plan of care. Lung sounds are positive for limited rales at the right lower base. The findings and the impression was discussed with the patient. I attest to the documentation by the nurse practitioner. Time with Patient: Less than 30
[2019-02-14] MEDS: FUROSEMIDE 40 MG TAB PO SCH ×2 (09:18→16:03)
[2019-02-14] MEDS: POTASSIUM CHLORIDE ER 20 MEQ TAB.ER PO SCH (09:18)
[2019-02-14] MEDS: AMIODARONE 200 MG TAB PO SCH ×2 (09:18→20:28)
[2019-02-14] MEDS: DOCUSATE 100 MG CAP PO SCH (09:18)
[2019-02-14] MEDS: METOPROLOL TARTRATE 25 MG TAB PO SCH ×3 (09:18→20:28)
[2019-02-14] MEDS: APIXABAN 5 MG TAB PO SCH ×2 (09:18→20:28)
--- NOTE | 2019-02-14 10:26 | P.PN ---
Subjective On-call hospitalist covering for Dr. vega over the long weekend From the records Tamar Dominguez is an 78 yo F with PMH significant for diastolic CHF, A fib, T2DM, hx DVT, hypothyroid who presented to the ED with weakness, chills and malaise. History obtained via pt and son. Son states that pt ran out of her metolazone a few days ago and has been having more difficulty ambulating and feeling more weak. She had not been able to walk to the bathroom and had been noticing increasing cough. Yesterday pt began to experience chills and nausea in addition to worsening weakness. Due to this she came in to the ED. No sick contacts at home. Son has been wrapping wound on LLE which he states had become more red and tender over the same interval. In the ED, temp on admission 99.7, BP stable, HR in 150s. WBC 40k, Cr 1.5, INR subtherpeutic at 1.0, CXR with interstitial prominence, UA with large LE and nitrite. Trop negative. Pt given dose of rocephin and started on cardizem for RVR. 02/11. Pt became hypotensive yesterday am and was transferred to ICU and started on solucortef and given IVF. Her cardizem has been discontinued and her HR is c ontrolled with metoprolol. ID evaluated pt and agreeable with current abx in addition to local wound care. Pt feeling better today but still weak and short of breath. Subjective: 02/12/2019 Patient is seen and examined today in the ICU. She is 79 years old female who presents with weakness and found to have A. fib with uncontrolled heart rate and tachycardia. Patient was started on amiodarone today. Also patient continue on Zosyn and vancomycin for possible sepsis and urosepsis. Lactic acid was elevated and patient received IV fluid which is back to normal at 1.5. Patient also was on insulin drip and switched to insulin sliding scale. Sugar is controlled. Creatinine 1.4. WBC 20 3.1K. Cultures none Proteus and E. coli. Patient is having diarrhea today. We will check for C. diff 02/13/2019 Patient is awake and oriented. She denies chest pain or dyspnea. She has Hayes catheter. No suprapubic tenderness. She has loose bowel movement only once a day. She slipped tachypneic with a dry cough. Vitals reviewed showing patient is afebrile, with tachycardia 107, blood pressure 94/74. WBC is trending down to 17.8 K. Creatinine 1.48. Chest x-ray showing stable vascular congestion, minimally increased right basilar opacification. Pulmonary/critical care team are following the patient closely. She remains on Zosyn and vancomycin. 02/14/2019 Patient transferred to the select unit today. She is awake and opened chair, denies chest pain or dyspnea however she still with tachypneic. No vomiting and chest tolerating diet well. She feels a little better. She had a runny bowel movement once a day. And on exam she has bilateral lung propagation. A febrile and blood pressure 140/76. Creatinine today is 1.39. She remains on Vanco and Zosyn for her cellulitis of the lower extremity more on the left side and urinary tract infection. Patient was started on Amaryl 1 mg daily for better sugar control. Hold sitagliptin review of her heart disease. Objective - Vital Signs Vital signs: Vital Signs Temp 97.1 F L 02/14/19 07:58 Pulse 76 02/14/19 08:00 Resp 18 02/14/19 07:58 BP 148/76 02/14/19 07:58 Pulse Ox 96 02/14/19 07:58 Intake & Output 02/13/19 02/14/19 02/14/19 18:59 06:59 18:59 Intake Total 960 900 340 Output Total 1275 450 Balance -315 900 -110 Weight 123.4 kg Intake: IV 240 600 100 0.9 sodium chloride 140 Piperacillin-Tazobactam 3 100 100 100 .375 gm In Sodium Chloride 0.9% 100 ml @ 25 mls/hr IVPB Q8H [facility] Rx#: [id number] Vancomycin 1,750 mg In 500 Sodium Chloride 0.9% 500 ml 500 ml @ 167 mls/hr IVPB ONCE ONE Rx#: [id number] Oral 720 300 240 Output: Urine 1275 450 Other: Voiding Method Indwelling Catheter Indwelling Catheter Indwelling Catheter # Bowel Movements 1 1 - Exam GENERAL: The patient is alert and oriented x3, not in any acute distress. Obese HEENT: Pupils are round and equally reacting to light. EOMI. No scleral icterus. No conjunctival pallor. Normocephalic, atraumatic. No pharyngeal erythema. No thyromegaly. CARDIOVASCULAR: S1 and S2 present. No murmurs, rubs, or gallops. PULMONARY: Chest is clear to auscultation, no wheezing or crackles. -ABDOMEN: Soft, nontender, nondistended, normoactive bowel sounds. No palpable organomegaly. Hayes catheter is in place MUSCULOSKELETAL: No joint swelling or deformity. EXTREMITIES: No cyanosis, clubbing, or pedal edema. NEUROLOGICAL: Gross neurological examination did not reveal any focal deficits. SKIN: No rashes. - Labs CBC & Chem 7: 02/13/19 05:20 02/14/19 07:15 Labs: Abnormal Lab Results - Last 24 Hours (Table) 02/13/19 02/13/19 02/13/19 Range/Units 11:49 16:45 19:57 Creatinine (0.52-1.04) mg/dL POC Glucose (mg/dL) 200 H 206 H 160 H (75-99) mg/dL 02/14/19 02/14/19 Range/Units 06:30 07:15 Creatinine 1.39 H (0.52-1.04) mg/dL POC Glucose (mg/dL) 102 H (75-99) mg/dL Microbiology - Last 24 Hours (Table) 02/10/19 08:35 Blood Culture - Preliminary Blood No Growth after 72 hours Assessment and Plan Assessment: Severe sepsis Cellulitis of the left lower extremity Acute kidney injury, improved Acute on chronic diastolic heart failure A. fib with RVR Leukocytosis Acute urinary tract infection Diabetes mellitus Plan: This is a pleasant 78 years old female who presents with severe sepsis and CHF. Also she is afib with RVR. Patient is on metoprolol and amiodarone. Cardiology are following the case. Pulmonary/critical care team also on the case. Con tinue with broad-spectrum with Zosyn and vancomycin antibiotics and follow the culture results. Patient does have diarrhea and we'll check C. diff, still pending.Labs and medication were reviewed.. Continue same treatment. Continue with symptomatic treatment. Resume home medication. Monitor lytes and vitals. DVT and GI prophylaxis. Further recommendations of the clinical course of the patient DVT prophylaxis: Eliquis GI Prophylaxis: Pepcid PT/OT: Recommended subacute rehabilitation. Consult for social workers placed. Prognosis is guarded Dr. coles will resume the care of the patient tomorrow
[2019-02-14 11:30] LABS: Glucose,Whole Blood 149 mg/dL (75-99)
--- NOTE | 2019-02-14 12:05 | PN ---
PROGRESS NOTE Tamar is an 78-year-old lady with sepsis and atrial fibrillation with rapid ventricular rate, who was in the intensive care unit until yesterday and had been transferred out. Her heart rate is better controlled. Heart rate is in the 70s now. I started her on amiodarone day before yesterday. Currently on Cordarone 200 b.i.d., Eliquis 5 b.i.d., Lasix, insulin, Lopressor. EXAM: Appears comfortable at rest. Vital signs are stable. Chest exam reveals diminished air entry with occasional rhonchi. Heart exam reveals first and second heart sounds irregular rhythm. Exam of extremities reveals mild edema. Peripheral pulses are felt. LAB: Show that the hemoglobin is 12.4, platelet count is 183. ASSESSMENT: Chronic atrial fibrillation with controlled ventricular rate. PLAN: The patient will continue current medication. We will follow the patient with you. MMODL / IJN: [id number] /
[2019-02-14 16:41] LABS: Glucose,Whole Blood 196 mg/dL (75-99)
[2019-02-14 20:21] LABS: Glucose,Whole Blood 164 mg/dL (75-99)
[2019-02-14] MEDS: FAMOTIDINE 20 MG TAB PO SCH (20:28)
[2019-02-14] MEDS: ATORVASTATIN 40 MG TAB PO SCH (20:28)
[2019-02-15] MEDS: PIPERACILLIN-TAZOBACTAM 3.375 GM in SODIUM CHLORIDE 0.9% 100 ML IVPB SCH ×3 (03:29→19:56)
[2019-02-15 05:59] LABS: Basophils % (A) 0 %; Eosinophils # (A) 0.2 k/uL (0-0.7); Eosinophils % (A) 2 %; HCT 36.2 % (34.0-46.0); HGB 11.4 gm/dL (11.4-16.0); Lymphocytes % (A) 8 %; MCHC 31.6 g/dL (31.0-37.0); MCV 98.1 fL (80.0-100.0); Macrocytosis Slight; Mean Platelet Volume 8.6; Monocytes # (A) 0.6 k/uL (0-1.0); Monocytes % (A) 5 %; Neutrophils # (A) 10.2 k/uL (1.3-7.7); Neutrophils % (A) 83 %; Platelet Count 183 k/uL (150-450); RBC 3.69 m/uL (3.80-5.40); WBC 12.4 k/uL (3.8-10.6)
[2019-02-15 06:05] LABS: Calcium 9.2 mg/dL (8.4-10.2); Potassium 4.1 mmol/L (3.5-5.1)
[2019-02-15 06:23] LABS: Glucose,Whole Blood 118 mg/dL (75-99)
[2019-02-15] MEDS: LEVOTHYROXINE 100 MCG TAB PO SCH (06:25)
[2019-02-15] MEDS: INSULIN ASPART (NovoLOG) 100 UNIT/ML VIAL SQ SCH ×4 (06:25→21:52)
[2019-02-15] MEDS: GLIMEPIRIDE 1 MG TAB PO SCH (06:25)
[2019-02-15] MEDS: PANTOPRAZOLE 40 MG TABLET PO SCH (06:25)
[2019-02-15] MEDS: IPRATROPIUM-ALBUTEROL 3 ML NEB INHALATION SCH ×3 (07:43→19:07)
[2019-02-15] MEDS: APIXABAN 5 MG TAB PO SCH ×2 (08:14→19:57)
[2019-02-15] MEDS: AMIODARONE 200 MG TAB PO SCH ×2 (08:14→19:56)
[2019-02-15] MEDS: METOPROLOL TARTRATE 25 MG TAB PO SCH (08:14)
[2019-02-15] MEDS: FUROSEMIDE 40 MG TAB PO SCH (08:14)
[2019-02-15] MEDS: DOCUSATE 100 MG CAP PO SCH (08:14)
[2019-02-15] MEDS: POTASSIUM CHLORIDE ER 20 MEQ TAB.ER PO SCH (08:14)
[2019-02-15] MEDS ORDERED: VANCOMYCIN TROUGH DUE 1 EACH MISC MISCELLANE ONE (11:00)
[2019-02-15] MEDS: METOPROLOL TARTRATE 50 MG TAB PO SCH ×2 (11:23→19:56)
[2019-02-15 11:51] LABS: Glucose,Whole Blood 133 mg/dL (75-99)
--- NOTE | 2019-02-15 12:30 | P.PN ---
Subjective Progress Note Date: 02/15/19 Tamar Dominguez is an 78 yo F with PMH significant for diastolic CHF, A fib, T2DM, hx DVT, hypothyroid who is admitted for sepsis secondary to cellulitis. 02/15. She is seen in stepdown today, WBC is trending down and no longer in RVR. Her HR is controlled on amiodarone. Pt continues to have net positive fluid balance this admission and complains of severely swollen legs. She was restarted on bid lasix yesterday. She is still not ambulating and feels weak. Denies fever, chills, shortness of breath. Objective - Vital Signs Vital signs: Vital Signs Temp 98.0 F 02/15/19 11:34 Pulse 104 H 02/15/19 11:34 Resp 18 02/15/19 11:34 BP 101/62 02/15/19 11:34 Pulse Ox 97 02/15/19 11:34 Intake & Output 02/14/19 02/15/19 02/15/19 18:59 06:59 18:59 Intake Total 920 110 580 Output Total 1000 750 775 Balance -80 -640 -195 Weight 123.5 kg Intake: IV 200 110 100 Invasive Line 3 10 Piperacillin-Tazobactam 3 200 100 100 .375 gm In Sodium Chloride 0.9% 100 ml @ 25 mls/hr IVPB Q8H [facility] Rx#: [id number] Oral 720 480 Output: Urine 1000 750 775 Other: Voiding Method Indwelling Catheter Indwelling Catheter Indwelling Catheter # Voids 1 # Bowel Movements 1 - Exam General: well nourished, well developed, resting in NAD. Vitals reviewed Lungs: normal respiratory effort, no wheezes. Crackles at bases CV: Irregularly irregular, no murmur. Peripheral pulses 1+ Skin: RLE with 3+ edema. LLE with 4+ edema, erythema and cracked skin up to mid fall. Scant tense bullae seen LLE Neuro: A&Ox3, normal mood and affect - Labs CBC & Chem 7: 02/15/19 05:23 02/15/19 05:23 Labs: Abnormal Lab Results - Last 24 Hours (Table) 02/14/19 02/14/19 02/15/19 Range/Units 16:39 20:14 05:23 WBC (3.8-10.6) k/uL RBC (3.80-5.40) m/uL RDW (11.5-15.5) % Neutrophils # (1.3-7.7) k/uL BUN 50 H (7-17) mg/dL Creatinine 1.39 H (0.52-1.04) mg/dL Glucose 126 H (74-99) mg/dL POC Glucose (mg/dL) 196 H 164 H (75-99) mg/dL 02/15/19 02/15/19 02/15/19 Range/Units 05:23 06:18 11:42 WBC 12.4 H (3.8-10.6) k/uL RBC 3.69 L (3.80-5.40) m/uL RDW 16.0 H (11.5-15.5) % Neutrophils # 10.2 H (1.3-7.7) k/uL BUN (7-17) mg/dL Creatinine (0.52-1.04) mg/dL Glucose (74-99) mg/dL POC Glucose (mg/dL) 118 H 133 H (75-99) mg/dL Microbiology - Last 24 Hours (Table) 02/10/19 08:35 Blood Culture - Preliminary Blood No Growth after 120 hours Assessment and Plan (1) Severe sepsis Current Visit: Yes Status: Acute Code(s): A41.9 - SEPSIS, UNSPECIFIED ORGANISM; R65.20 - SEVERE SEPSIS WITHOUT SEPTIC SHOCK SNOMED Code(s): 83538458 (2) Acute on chronic diastolic (congestive) heart failure Current Visit: Yes Status: Acute Code(s): I50.33 - ACUTE ON CHRONIC DIASTOLIC (CONGESTIVE) HEART FAILURE SNOMED Code(s): 371934499 (3) Cellulitis of left lower extremity Current Visit: Yes Status: Acute Code(s): L03.116 - CELLULITIS OF LEFT LOWER LIMB SNOMED Code(s): 673603314 (4) Acute kidney injury Current Visit: Yes Status: Acute Code(s): N17.9 - ACUTE KIDNEY FAILURE, UNSPECIFIED SNOMED Code(s): 60540854 (5) Subtherapeutic international normalized ratio (INR) Current Visit: Yes Status: Acute Code(s): R79.1 - ABNORMAL COAGULATION PROFILE SNOMED Code(s): 526248763 (6) Atrial fibrillation with rapid ventricular response Current Visit: Yes Status: Acute Code(s): I48.91 - UNSPECIFIED ATRIAL FIBRILLATION SNOMED Code(s): 387333185922997 (7) Leukocytosis Current Visit: Yes Status: Acute Code(s): D72.829 - ELEVATED WHITE BLOOD CELL COUNT, UNSPECIFIED SNOMED Code(s): 470853973 (8) Acute cystitis Current Visit: Yes Status: Acute Code(s): N30.00 - ACUTE CYSTITIS WITHOUT HEMATURIA SNOMED Code(s): 11695692 (9) Type 2 diabetes mellitus Current Visit: Yes Status: Acute Code(s): E11.9 - TYPE 2 DIABETES MELLITUS WITHOUT COMPLICATIONS SNOMED Code(s): 10946097 (10) Septic shock Current Visit: Yes Status: Acute Code(s): A41.9 - SEPSIS, UNSPECIFIED ORGANISM; R65.21 - SEVERE SEPSIS WITH SEPTIC SHOCK SNOMED Code(s): 67852797 Plan: 1. Severe sepsis. Secondary to cellulitis. Blood cultures negative. Continue Zosyn and vancomycin 2. Atrial fibrillation with RVR, resolved. Cardiology following. HR controlled with metoprolol and amiodarone 3. Acute exacerbation of diastolic CHF. Strict I/Os. Continue lasix 40 mg bid 4. Subtherapeutic INR. Now on eliquis 5. T2DM. Accucheck/sliding scale. Hold januvia. Restarted on amaryl 6. CAD. Continue Statin and imdur 7. Hypothyroidism. Continue synthroid DVT prophylaxis: eliquis
[2019-02-15] MEDS: VANCOMYCIN 1,750 MG in SODIUM CHLORIDE 0.9% 500 ML 500 ML IVPB SCH (12:36)
--- NOTE | 2019-02-15 13:08 | P.PN ---
Subjective Progress Note Date: 02/15/19 Principal diagnosis: Urinary tract infection, with hypotension and septic shock secondary to Proteus mirabilis and E. coli, congestive heart failure with worsening excess fluid On 02/14/2019 patient seen in follow-up on selective care unit, she is awake and alert, she is up on the commode, in no acute distress, she denies any difficulty breathing, does remain on supplemental oxygen, 2 L, with a pulse ox of 96%, she has been afebrile, denies any chills, denies any cough or c ongestion, lung sounds reveal some crackles at the right lower base posteriorly, no wheezing, no rhonchi, today's labs have been reviewed, and as a down trend in the white blood cell count down to 17.8 from 23.1 on yesterday's labs, hemoglobin is 12.4, electrolytes are within normal limits, today's creatinine is 1.39, slight improvement from yesterday's labs, vital signs are stable, hemodynamically patient remains stable. Patient is on Zosyn and vancomycin, urine culture was positive for E. coli and Proteus mirabilis, and both are sensitive to Zosyn. Blood cultures showed no growth at the 72 hour konstantin. Still has significant amount of lower extremity edema, lower extremities Myles wrapped. Patient received extra dose of Lasix yesterday, will start the patient on oral Lasix, 40 mg twice daily. On 02/15/2019 patient seen in follow-up on selective care unit, in no acute distress, she is on 2 L of oxygen, her pulse ox is 97%, she is afebrile, denies any chest pain, lung sounds reveal minimal crackles at bilateral bases, patient is still has quite significant lower extremity edema, yesterday we restarted her on oral Lasix, and today she has been switched to IV Lasix. It is labs have been reviewed, showed white blood cell count of 12.4, hemoglobin of 11.4, electrolytes were within normal limits, BUN was 15 creatinine was 1.39. Patient's been on antibiotics in the form of Zosyn and vancomycin. Urine culture was positive for Proteus mirabilis and is Ecoli Objective - Vital Signs Vital signs: Vital Signs Temp 98.0 F 02/15/19 11:34 Pulse 104 H 09/03/19 11:34 Resp 18 02/15/19 11:34 BP 101/62 02/15/19 11:34 Pulse Ox 97 02/15/19 11:34 Intake & Output 02/14/19 02/15/19 02/15/19 18:59 06:59 18:59 Intake Total 920 110 580 Output Total 1000 750 775 Balance -80 -640 -195 Weight 123.5 kg Intake: IV 200 110 100 Invasive Line 3 10 Piperacillin-Tazobactam 3 200 100 100 .375 gm In Sodium Chloride 0.9% 100 ml @ 25 mls/hr IVPB Q8H [facility] Rx#: [id number] Oral 720 480 Output: Urine 1000 750 775 Other: Voiding Method Indwelling Catheter Indwelling Catheter Indwelling Catheter # Voids 1 # Bowel Movements 1 - Exam GENERAL EXAM: Alert, pleasant, 78-year-old obese white female, on 2 L of oxygen with o2sat 97, comfortable in no apparent distress. HEAD: Normocephalic/atraumatic. EYES: Normal reaction of pupils, equal size. Conjunctiva pink, sclera white. NOSE: Clear with pink turbinates. THROAT: No erythema or exudates. NECK: No masses, no JVD, no thyroid enlargement, no adenopathy. CHEST: No chest wall deformity. Symmetrical expansion. LUNGS: Equal air entry with bibasilar crackles, posteriorly, but no wheeze, rhonchi or dullness. CVS: Regular rate and rhythm, normal S1 and S2, no gallops, no murmurs, no rubs ABDOMEN: Soft, nontender. No hepatosplenomegaly, normal bowel sounds, no guarding or rigidity. EXTREMITIES: No clubbing, 2+ lower extremity edema lower extremities are myles wrapped no cyanosis, 2+ pulses and upper and lower extremities. MUSCULOSKELETAL: Muscle strength and tone normal. SPINE: No scoliosis or deformity SKIN: No rashes CENTRAL NERVOUS SYSTEM: Alert and oriented -3. No focal deficits, tone is normal in all 4 extremities. PSYCHIATRIC: Alert and oriented -3. Appropriate affect. Intact judgment and insight. - Labs CBC & Chem 7: 02/15/19 05:23 02/15/19 05:23 Labs: Abnormal Lab Results - Last 24 Hours (Table) 02/14/19 02/14/19 02/15/19 Range/Units 16:39 20:14 05:23 WBC (3.8-10.6) k/uL RBC (3.80-5.40) m/uL RDW (11.5-15.5) % Neutrophils # (1.3-7.7) k/uL BUN 50 H (7-17) mg/dL Creatinine 1.39 H (0.52-1.04) mg/dL Glucose 126 H (74-99) mg/dL POC Glucose (mg/dL) 196 H 164 H (75-99) mg/dL 02/15/19 02/15/19 02/15/19 Range/Units 05:23 06:18 11:42 WBC 12.4 H (3.8-10.6) k/uL RBC 3.69 L (3.80-5.40) m/uL RDW 16.0 H (11.5-15.5) % Neutrophils # 10.2 H (1.3-7.7) k/uL BUN (7-17) mg/dL Creatinine (0.52-1.04) mg/dL Glucose (74-99) mg/dL POC Glucose (mg/dL) 118 H 133 H (75-99) mg/dL Microbiology - Last 24 Hours (Table) 02/10/19 08:35 Blood Culture - Preliminary Blood No Growth after 120 hours Assessment and Plan Plan: Assessment: #1. Acute urinary tract infection with septic shock secondary to Proteus mirabilis and ischial brachial coli #2. Congestive heart failure with worsening excess fluid status, now improved with diuretics, echo showed low normal left ventricle systolic function with an EF of 50-55%, mild mitral, mild tricuspid regurgitation, and mild to moderate pulmonary hypertension #3. Morbid obesity #4. Benign essential hypertension #5. History of DVT #6. History of chronic kidney disease unspecified #7. Diabetes mellitus type 2 #8. Chronic obstructive pulmonary disease #9. Previous history of tobacco use #10. History of sleep apnea syndrome #11. Chronic atrial fibrillation on Eliquis #12. Bilateral lower extremity cellulitis and lymphedema Plan: Agree with IV diuretics, patient still has quite significant lower extremity edema. From pulmonary perspective patient remains stable, no worsening dyspnea, she is on 2 L of oxygen, complaints of chest pain, cough or congestion. Continue antibiotics per ID service recommendations. No fever or chills, clinically stable, we will follow on as-needed basis. I performed a history & physical examination of the patient and discussed their management with my nurse practitioner, Sana Villalta. I reviewed the nurse practitioner's note and agree with the documented findings and plan of care. Lung sounds are positive for limited rales at the right lower base. The findings and the impression was discussed with the patient. I attest to the documentation by the nurse practitioner. Time with Patient: Less than 30
--- NOTE | 2019-02-15 14:10 | P.PN ---
Subjective Progress Note Date: 02/15/19 This is an 78-year-old female who presented to the hospital with urinary tract infection with hypotension and septic shock, secondary to Proteus mirabilis and E. coli. Patient also received treatment for congestive cardiac failure. She continues to be in atrial fibrillation today her heart rate is 106, she is on amiodarone and Eliquis. We'll increase her dose of beta darius today to 50 mg one tablet by mouth twice a day and continue the rest of her medications. Objective - Vital Signs Vital signs: Vital Signs Temp 98.0 F 02/15/19 11:34 Pulse 104 H 02/15/19 11:34 Resp 18 02/15/19 11:34 BP 101/62 02/15/19 11:34 Pulse Ox 97 02/15/19 11:34 Intake & Output 02/14/19 02/15/19 02/15/19 18:59 06:59 18:59 Intake Total 920 110 940 Output Total 1000 750 775 Balance -80 -640 165 Weight 123.5 kg Intake: IV 200 110 100 Invasive Line 3 10 Piperacillin-Tazobactam 3 200 100 100 .375 gm In Sodium Chloride 0.9% 100 ml @ 25 mls/hr IVPB Q8H [facility] Rx#: [id number] Oral 720 840 Output: Urine 1000 750 775 Other: Voiding Method Indwelling Catheter Indwelling Catheter Indwelling Catheter # Voids 1 # Bowel Movements 1 - Exam HEAD: Normocephalic/atraumatic. EYES: Normal reaction of pupils, equal size. Conjunctiva pink, sclera white. NOSE: Clear with pink turbinates. THROAT: No erythema or exudates. NECK: No masses, no JVD, no thyroid enlargement, no adenopathy. CHEST: No chest wall deformity. Symmetrical expansion. LUNGS: Equal air entry with lumbar crackles at the right lower lobe, posteriorly, but no wheeze, rhonchi or dullness. CVS: Regular rate and rhythm, normal S1 and S2, no gallops, no murmurs, no rubs ABDOMEN: Soft, nontender. No hepatosplenomegaly, normal bowel sounds, no guarding or rigidity. EXTREMITIES: No clubbing, 2+ lower extremity edema lower extremities are marino wrapped no cyanosis, 2+ pulses and upper and lower extremities. MUSCULOSKELETAL: Muscle strength and tone normal. SPINE: No scoliosis or deformity SKIN: No rashes CENTRAL NERVOUS SYSTEM: Alert and oriented -3. No focal deficits, tone is normal in all 4 extremities. PSYCHIATRIC: Alert and oriented -3. Appropriate affect. Intact judgment and insight. - Labs CBC & Chem 7: 02/15/19 05:23 02/15/19 05:23 Labs: Abnormal Lab Results - Last 24 Hours (Table) 02/14/19 02/14/19 02/15/19 Range/Units 16:39 20:14 05:23 WBC (3.8-10.6) k/uL RBC (3.80-5.40) m/uL RDW (11.5-15.5) % Neutrophils # (1.3-7.7) k/uL BUN 50 H (7-17) mg/dL Creatinine 1.39 H (0.52-1.04) mg/dL Glucose 126 H (74-99) mg/dL POC Glucose (mg/dL) 196 H 164 H (75-99) mg/dL 02/15/19 02/15/19 02/15/19 Range/Units 05:23 06:18 11:42 WBC 12.4 H (3.8-10.6) k/uL RBC 3.69 L (3.80-5.40) m/uL RDW 16.0 H (11.5-15.5) % Neutrophils # 10.2 H (1.3-7.7) k/uL BUN (7-17) mg/dL Creatinine (0.52-1.04) mg/dL Glucose (74-99) mg/dL POC Glucose (mg/dL) 118 H 133 H (75-99) mg/dL Microbiology - Last 24 Hours (Table) 02/10/19 08:35 Blood Culture - Preliminary Blood No Growth after 120 hours Assessment and Plan Plan: Assessment: #1. Acute urinary tract infection with septic shock secondary to Proteus mirabilis and ischial brachial coli #2. Congestive heart failure diastolic acute on chronic improved with diuretics, echo showed low normal left ventricle systolic function with an EF of 50-55%, mild mitral, mild tricuspid regurgitation, and mild to moderate pulmonary hypertension #3. Morbid obesity #4. Benign essential hypertension #5. History of DVT #6. History of chronic kidney disease unspecified #7. Diabetes mellitus type 2 #8. Chronic obstructive pulmonary disease #9. Previous history of tobacco use #10. History of sleep apnea syndrome #11. Chronic atrial fibrillation on Eliquis #12. Bilateral lower extremity cellulitis and lymphedema Plan Will increase the dose of beta darius to 50 mg one tablet by mouth twice a day, continue the rest of her medications. DNP note has been reviewed, I agree with a documented findings and plan of care. Patient was seen and examined.
[2019-02-15 16:59] LABS: Glucose,Whole Blood 178 mg/dL (75-99)
[2019-02-15] MEDS: FUROSEMIDE 10 MG/ML 4 ML VIAL IV SCH (17:21)
[2019-02-15] MEDS: ATORVASTATIN 40 MG TAB PO SCH (19:56)
[2019-02-15] MEDS: FAMOTIDINE 20 MG TAB PO SCH (19:57)
[2019-02-15 21:49] LABS: Glucose,Whole Blood 189 mg/dL (75-99)
[2019-02-15] MEDS: traMADol 50 MG TAB PO PRN (21:51)
--- NOTE | 2019-02-15 23:40 | P.PN ---
Subjective Progress Note Date: 02/15/19 78-year-old woman presents to the emergency center with the sudden change of her status and she developed fever and increasing weakness and altered mental status in counseling family brought her to hospital. She has chronic medical problems that include her superobesity lower extremity edema that had the onset of some increasing pain erythema and tenderness to the left lower extremity. 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 She developed evidence of an extensive cellulitis of left leg with secondary sepsis as he was admitted to hospital. Contemplation of vasopressor therapy occurred but is responded well to fluid resuscitation. There was evidence also of atrial fibrillation with a rapid ventricular response was treated with diltiazem which is also improving but not completely resolved. She feels slightly better this point in time and heart rate is now about 120. 02/15/2019 patient is feeling better. She has no other new acute complaints. Her atrial fibrillation is improved. She is medically stable. [place] left leg continues to be problematic but she is improved overall. Objective - Vital Signs Vital signs: Vital Signs Temp 97.6 F 02/15/19 20:00 Pulse 122 H 02/15/19 20:00 Resp 18 02/15/19 20:00 BP 146/75 02/15/19 20:00 Pulse Ox 99 02/15/19 20:00 Intake & Output 02/15/19 02/15/19 02/16/19 06:59 18:59 06:59 Intake Total 110 1180 Output Total 750 1875 Balance -640 -695 Weight 123.5 kg Intake: IV 110 100 Invasive Line 3 10 Piperacillin-Tazobactam 3 100 100 .375 gm In Sodium Chloride 0.9% 100 ml @ 25 mls/hr IVPB Q8H [facility] Rx#: [id number] Oral 1080 Output: Urine 750 1875 Other: Voiding Method Indwelling Catheter Indwelling Catheter Indwelling Catheter # Voids 1 # Bowel Movements 1 - Exam pleasant obese 78-year-old woman HEENT: Anicteric conjunctiva are pink and moist nasal mucosa grossly intact without significant lesions, there is no thrush. Neck: The neck is supple without significant lymphadenopathy or thyromegaly. Lungs: Good bilateral air entry without significant crackles or wheezing. There is no significant bronchial sounds. There is no egophony or dullness. Heart: Regular rate and rhythm with an audible S1-S2, no S3 no S4. There is no significant murmur click or rub, PMI was nondisplaced. Abdomen: Positive bowel sounds soft and nontender without palpable masses or organomegaly. There was no guarding or rebound. Extremities: The upper extremities have excellent pulses they are symmetric, no significant petechiae or telangiectasia. No splinter hemorrhages were noted. Bilateral lower extremities have chronic edema with chronic venous stasis, chronic lipedema and chronic thickened hyperkeratotic skin. The left leg is considerably worse than the right. There is dense erythema from the foot to just below the knee. It is quite tender and quite warm to touch. Presents the thickened dry skin to the plantar surface a secondary fungal infection of the skin as the likely portal of entry. Neuro: Awake alert oriented to person place and time. There are no acute new gross focal sensory motor deficits. - Labs CBC & Chem 7: 02/15/19 05:23 02/15/19 05:23 Labs: Abnormal Lab Results - Last 24 Hours (Table) 02/15/19 02/15/19 02/15/19 Range/Units 05:23 05:23 06:18 WBC 12.4 H (3.8-10.6) k/uL RBC 3.69 L (3.80-5.40) m/uL RDW 16.0 H (11.5-15.5) % Neutrophils # 10.2 H (1.3-7.7) k/uL BUN 50 H (7-17) mg/dL Creatinine 1.39 H (0.52-1.04) mg/dL Glucose 126 H (74-99) mg/dL POC Glucose (mg/dL) 118 H (75-99) mg/dL 02/15/19 02/15/19 02/15/19 Range/Units 11:42 16:48 21:47 WBC (3.8-10.6) k/uL RBC (3.80-5.40) m/uL RDW (11.5-15.5) % Neutrophils # (1.3-7.7) k/uL BUN (7-17) mg/dL Creatinine (0.52-1.04) mg/dL Glucose (74-99) mg/dL POC Glucose (mg/dL) 133 H 178 H 189 H (75-99) mg/dL Microbiology - Last 24 Hours (Table) 02/10/19 08:35 Blood Culture - Preliminary Blood No Growth after 120 hours Assessment and Plan (1) Fever Current Visit: Yes Status: Acute Code(s): R50.9 - FEVER, UNSPECIFIED SNOMED Code(s): 879819168 (2) Acute sepsis Current Visit: Yes Status: Acute Code(s): A41.9 - SEPSIS, UNSPECIFIED ORGANISM SNOMED Code(s): 47308616 (3) Cellulitis of left lower extremity Narrative/Plan: 78-year-old woman presents to the emergency center with complaints of feeling ill with fever and chills. There is evidence of the extensive cellulitis left lower extremity with a thickened cracked skin with secondary fungal infection as a portal of entry for the infections the left leg. This is the etiology also of her sepsis. Local wound care with Silvadene has been requested. Intravenous antibiotic therapy has been initiated with vancomycin and Zosyn given her sepsis relative hypotension and need for ICU admission. Cultures were further help direct The leg should be elevated while at rest. She believes she is up-to-date with tetanus vaccine Diabetes control will be very helpful or the improvement of the infection 02/15/2019 patient is responding to current antibiotic therapy in that her s epsis is resolved. She however continues to have warmth and erythema and some tenderness to the left leg. Continue the Silvadene wrap and elevation as much as she can tolerate. Proteus and Escherichia coli have an isolated from the wound currently receiving Rocephin which is an excellent choice. Will likely be transitioned to cefuroxime at the time of her discharge. Current Visit: Yes Status: Acute Code(s): L03.116 - CELLULITIS OF LEFT LOWER LIMB SNOMED Code(s): 580357957
[2019-02-16] MEDS: PIPERACILLIN-TAZOBACTAM 3.375 GM in SODIUM CHLORIDE 0.9% 100 ML IVPB SCH ×3 (05:35→21:41)
[2019-02-16 05:54] LABS: Glucose,Whole Blood 114 mg/dL (75-99)
[2019-02-16 06:33] LABS: Basophils # (A) 0.1 k/uL (0-0.2); Basophils % (A) 1 %; Eosinophils # (A) 0.2 k/uL (0-0.7); Eosinophils % (A) 2 %; HCT 34.7 % (34.0-46.0); HGB 11.1 gm/dL (11.4-16.0); Hypochromasia Slight; Lymphocytes # (A) 1.5 k/uL (1.0-4.8); Lymphocytes % (A) 15 %; MCHC 31.9 g/dL (31.0-37.0); MCV 97.4 fL (80.0-100.0); Monocytes # (A) 0.7 k/uL (0-1.0); Monocytes % (A) 7 %; Neutrophils # (A) 7.6 k/uL (1.3-7.7); Neutrophils % (A) 74 %; Platelet Count 175 k/uL (150-450); RBC 3.57 m/uL (3.80-5.40); RDW 14.8 % (11.5-15.5); WBC 10.2 k/uL (3.8-10.6)
[2019-02-16] MEDS: INSULIN ASPART (NovoLOG) 100 UNIT/ML VIAL SQ SCH ×4 (06:36→21:41)
[2019-02-16] MEDS: LEVOTHYROXINE 100 MCG TAB PO SCH (06:38)
[2019-02-16] MEDS: PANTOPRAZOLE 40 MG TABLET PO SCH (06:38)
[2019-02-16] MEDS: GLIMEPIRIDE 1 MG TAB PO SCH (06:38)
[2019-02-16 06:54] LABS: Calcium 9.1 mg/dL (8.4-10.2); Potassium 4.4 mmol/L (3.5-5.1)
[2019-02-16] MEDS: IPRATROPIUM-ALBUTEROL 3 ML NEB INHALATION SCH ×3 (07:36→20:11)
[2019-02-16] MEDS: traMADol 50 MG TAB PO PRN (08:05)
[2019-02-16] MEDS: APIXABAN 5 MG TAB PO SCH ×2 (08:05→21:41)
[2019-02-16] MEDS: AMIODARONE 200 MG TAB PO SCH ×2 (08:05→21:41)
[2019-02-16] MEDS: DOCUSATE 100 MG CAP PO SCH (08:05)
[2019-02-16] MEDS: POTASSIUM CHLORIDE ER 20 MEQ TAB.ER PO SCH (08:05)
[2019-02-16] MEDS: METOPROLOL TARTRATE 50 MG TAB PO SCH ×2 (08:05→21:41)
[2019-02-16] MEDS: FUROSEMIDE 10 MG/ML 4 ML VIAL IV SCH ×2 (08:06→16:09)
--- NOTE | 2019-02-16 08:56 | P.PN ---
Subjective Progress Note Date: 02/16/19 Tamar Dominguez is an 78 yo F with PMH significant for diastolic CHF, A fib, T2DM, hx DVT, hypothyroid who is admitted for urosepsis and cellulitis. 02/15. She is seen in stepdown today, WBC is trending down and no longer in RVR. Her HR is controlled on amiodarone. Pt continues to have net positive fluid bal ance this admission and complains of severely swollen legs. She was restarted on bid lasix yesterday. She is still not ambulating and feels weak. Denies fever, chills, shortness of breath. 02/16. Pt with good response to diuresis yesterday, legs still very swollen but improved. No fevers, chills, dyspnea. She continues to complain of significant weakness and is not ambulating. Objective - Vital Signs Vital signs: Vital Signs Temp 97.6 F 02/15/19 20:00 Pulse 92 02/16/19 07:52 Resp 19 02/16/19 04:00 BP 132/63 02/16/19 04:00 Pulse Ox 100 02/16/19 04:00 Intake & Output 02/15/19 02/16/19 02/16/19 18:59 06:59 18:59 Intake Total 1180 480 Output Total 1875 900 Balance -695 -900 480 Weight 113.1 kg Intake: IV 100 Piperacillin-Tazobactam 3 100 .375 gm In Sodium Chloride 0.9% 100 ml @ 25 mls/hr IVPB Q8H [facility] Rx#: [id number] Oral 1080 480 Output: Urine 1875 900 Other: Voiding Method Indwelling Catheter Indwelling Catheter # Voids 1 # Bowel Movements 1 - Exam General: well nourished, well developed, resting in NAD. Vitals reviewed Lungs: normal respiratory effort, no wheezes. Crackles at bases CV: Irregularly irregular, no murmur. Peripheral pulses 1+ Skin: RLE with 3+ edema. LLE with 4+ edema, erythema and cracked skin up to mid fall. Scant tense bullae seen LLE Neuro: A&Ox3, normal mood and affect - Labs CBC & Chem 7: 02/16/19 05:31 02/16/19 05:31 Labs: Abnormal Lab Results - Last 24 Hours (Table) 02/15/19 02/15/19 02/15/19 Range/Units 11:42 16:48 21:47 RBC (3.80-5.40) m/uL Hgb (11.4-16.0) gm/dL Chloride (98-107) mmol/L BUN (7-17) mg/dL Creatinine (0.52-1.04) mg/dL Glucose (74-99) mg/dL POC Glucose (mg/dL) 133 H 178 H 189 H (75-99) mg/dL 02/16/19 02/16/19 02/16/19 Range/Units 05:31 05:31 05:53 RBC 3.57 L (3.80-5.40) m/uL Hgb 11.1 L (11.4-16.0) gm/dL Chloride 108 H (98-107) mmol/L BUN 47 H (7-17) mg/dL Creatinine 1.31 H (0.52-1.04) mg/dL Glucose 112 H (74-99) mg/dL POC Glucose (mg/dL) 114 H (75-99) mg/dL Microbiology - Last 24 Hours (Table) 02/10/19 08:35 Blood Culture - Preliminary Blood No Growth after 120 hours Assessment and Plan (1) Severe sepsis Current Visit: Yes Status: Acute Code(s): A41.9 - SEPSIS, UNSPECIFIED ORGANISM; R65.20 - SEVERE SEPSIS WITHOUT SEPTIC SHOCK SNOMED Code(s): 23775767 (2) Acute on chronic diastolic (congestive) heart failure Current Visit: Yes Status: Acute Code(s): I50.33 - ACUTE ON CHRONIC DIASTOLIC (CONGESTIVE) HEART FAILURE SNOMED Code(s): 570724490 (3) Cellulitis of left lower extremity Current Visit: Yes Status: Acute Code(s): L03.116 - CELLULITIS OF LEFT LOWER LIMB SNOMED Code(s): 858370173 (4) Acute kidney injury Current Visit: Yes Status: Acute Code(s): N17.9 - ACUTE KIDNEY FAILURE, UNSPECIFIED SNOMED Code(s): 77779358 (5) Subtherapeutic international normalized ratio (INR) Current Visit: Yes Status: Acute Code(s): R79.1 - ABNORMAL COAGULATION PROFILE SNOMED Code(s): 035333134 (6) Atrial fibrillation with rapid ventricular response Current Visit: Yes Status: Acute Code(s): I48.91 - UNSPECIFIED ATRIAL FIBRILLATION SNOMED Code(s): 768332559133789 (7) Leukocytosis Current Visit: Yes Status: Acute Code(s): D72.829 - ELEVATED WHITE BLOOD CELL COUNT, UNSPECIFIED SNOMED Code(s): 311448461 (8) Acute cystitis Current Visit: Yes Status: Acute Code(s): N30.00 - ACUTE CYSTITIS WITHOUT HEMATURIA SNOMED Code(s): 08772876 (9) Type 2 diabetes mellitus Current Visit: Yes Status: Acute Code(s): E11.9 - TYPE 2 DIABETES MELLITUS WITHOUT COMPLICATIONS SNOMED Code(s): 91377450 (10) Septic shock Current Visit: Yes Status: Acute Code(s): A41.9 - SEPSIS, UNSPECIFIED ORGANISM; R65.21 - SEVERE SEPSIS WITH SEPTIC SHOCK SNOMED Code(s): 40101317 Plan: 1. Severe sepsis. Secondary to cellulitis/UTI. Blood cultures negative. Continue Zosyn and vancomycin 2. Atrial fibrillation with RVR, resolved. Cardiology following. HR controlled with metoprolol and amiodarone 3. Acute exacerbation of diastolic CHF. Strict I/Os. Continue IV lasix 40 mg bid 4. Subtherapeutic INR. Now on eliquis 5. T2DM. Accucheck/sliding scale. Hold januvia. Restarted on amaryl 6. CAD. Continue Statin and imdur 7. Hypothyroidism. Continue synthroid DVT prophylaxis: eliquis
[2019-02-16] MEDS: ACETAMINOPHEN TAB 325 MG TAB PO PRN (10:28)
[2019-02-16 11:48] LABS: Glucose,Whole Blood 161 mg/dL (75-99)
--- NOTE | 2019-02-16 14:13 | P.PN ---
Subjective Progress Note Date: 02/16/19 This is an 78-year-old female who presented to the hospital with urinary tract infection with hypotension and septic shock, secondary to Proteus mirabilis and E. coli. Patient also received treatment for congestive cardiac failure. She continues to be in atrial fibrillation today her heart rate is 106, she is on amiodarone and Eliquis. We'll increase her dose of beta darius today to 50 mg one tablet by mouth twice a day and continue the rest of her medications. 02/16/2019 Patient was seen and examined this morning, continues to diurese on her IV Lasix. Heart rate maintaining in the 90s today. Blood pressure 118/60. White blood cell count 10.2, hemoglobin 11.1, platelet count 75. Sodium 143, potassium 4.4, BUN 47 and creatinine 1.3. Objective - Vital Signs Vital signs: Vital Signs Temp 97.8 F 02/16/19 12:00 Pulse 94 02/16/19 13:11 Resp 20 02/16/19 12:00 BP 118/62 02/16/19 12:00 Pulse Ox 95 02/16/19 12:00 Intake & Output 02/15/19 02/16/19 02/16/19 18:59 06:59 18:59 Intake Total 1180 480 Output Total 1875 900 750 Balance -695 -900 -270 Weight 113.1 kg Intake: IV 100 Piperacillin-Tazobactam 3 100 .375 gm In Sodium Chloride 0.9% 100 ml @ 25 mls/hr IVPB Q8H [facility] Rx#: [id number] Oral 1080 480 Output: Urine 1875 900 750 Other: Voiding Method Indwelling Catheter Indwelling Catheter Indwelling Catheter # Voids 1 # Bowel Movements 1 - Exam HEAD: Normocephalic/atraumatic. EYES: Normal reaction of pupils, equal size. Conjunctiva pink, sclera white. NOSE: Clear with pink turbinates. THROAT: No erythema or exudates. NECK: No masses, no JVD, no thyroid enlargement, no adenopathy. CHEST: No chest wall deformity. Symmetrical expansion. LUNGS: Equal air entry with lumbar crackles at the right lower lobe, posteriorly, but no wheeze, rhonchi or dullness. CVS: Regular rate and rhythm, normal S1 and S2, no gallops, no murmurs, no rubs ABDOMEN: Soft, nontender. No hepatosplenomegaly, normal bowel sounds, no guarding or rigidity. EXTREMITIES: No clubbing, 2+ lower extremity edema lower extremities are marino wrapped no cyanosis, 2+ pulses and upper and lower extremities. MUSCULOSKELETAL: Muscle strength and tone normal. SPINE: No scoliosis or deformity SKIN: No rashes CENTRAL NERVOUS SYSTEM: Alert and oriented -3. No focal deficits, tone is normal in all 4 extremities. PSYCHIATRIC: Alert and oriented -3. Appropriate affect. Intact judgment and insight. - Labs CBC & Chem 7: 02/16/19 05:31 02/16/19 05:31 Labs: Abnormal Lab Results - Last 24 Hours (Table) 02/15/19 02/15/19 02/16/19 Range/Units 16:48 21:47 05:31 RBC (3.80-5.40) m/uL Hgb (11.4-16.0) gm/dL Chloride 108 H (98-107) mmol/L BUN 47 H (7-17) mg/dL Creatinine 1.31 H (0.52-1.04) mg/dL Glucose 112 H (74-99) mg/dL POC Glucose (mg/dL) 178 H 189 H (75-99) mg/dL 02/16/19 02/16/19 02/16/19 Range/Units 05:31 05:53 11:46 RBC 3.57 L (3.80-5.40) m/uL Hgb 11.1 L (11.4-16.0) gm/dL Chloride (98-107) mmol/L BUN (7-17) mg/dL Creatinine (0.52-1.04) mg/dL Glucose (74-99) mg/dL POC Glucose (mg/dL) 114 H 161 H (75-99) mg/dL Microbiology - Last 24 Hours (Table) 02/10/19 08:35 Blood Culture - Final Blood No Growth after 144 hours Assessment and Plan Plan: Assessment: #1. Acute urinary tract infection with septic shock secondary to Proteus mirabilis and ischial brachial coli #2. Congestive heart failure diastolic acute on chronic improved with diuretics, echo showed low normal left ventricle systolic function with an EF of 50-55%, mild mitral, mild tricuspid regurgitation, and mild to moderate pulmonary hypertension #3. Morbid obesity #4. Benign essential hypertension #5. History of DVT #6. History of chronic kidney disease unspecified #7. Diabetes mellitus type 2 #8. Chronic obstructive pulmonary disease #9. Previous history of tobacco use #10. History of sleep apnea syndrome #11. Chronic atrial fibrillation on Eliquis #12. Bilateral lower extremity cellulitis and lymphedema Plan From cardiology's perspective, we'll continue this patient on her current medications. Continue IV Lasix for 24 hours. Repeat chest x-ray in the morning. DNP note has been reviewed, I agree with a documented findings and plan of care. Patient was seen and examined.
[2019-02-16 14:32] VITALS: BMI 41.5
[2019-02-16 16:37] LABS: Glucose,Whole Blood 129 mg/dL (75-99)
[2019-02-16 21:19] LABS: Glucose,Whole Blood 257 mg/dL (75-99)
[2019-02-16] MEDS ORDERED: METOPROLOL TARTRATE 25 MG TAB PO STA (21:19)
[2019-02-16] MEDS: ATORVASTATIN 40 MG TAB PO SCH (21:41)
[2019-02-16] MEDS: FAMOTIDINE 20 MG TAB PO SCH (21:41)
[2019-02-16] MEDS ORDERED: METOPROLOL TARTRATE 5 MG/5 ML VIAL IVP ONE (23:16)
[2019-02-17] MEDS: VANCOMYCIN 2,000 MG in SODIUM CHLORIDE 0.9% 500 ML 500 ML IVPB SCH (01:49)
[2019-02-17] MEDS: traMADol 50 MG TAB PO PRN (02:55)
[2019-02-17] MEDS: PIPERACILLIN-TAZOBACTAM 3.375 GM in SODIUM CHLORIDE 0.9% 100 ML IVPB SCH ×2 (04:59→17:52)
[2019-02-17 06:28] LABS: Anisocytosis Slight; Basophils # (A) 0.1 k/uL (0-0.2); Basophils % (A) 1 %; Eosinophils # (A) 0.2 k/uL (0-0.7); Eosinophils % (A) 2 %; HCT 32.2 % (34.0-46.0); HGB 10.3 gm/dL (11.4-16.0); Lymphocytes # (A) 1.3 k/uL (1.0-4.8); Lymphocytes % (A) 15 %; MCH 31.3 pg (25.0-35.0); MCV 97.8 fL (80.0-100.0); Macrocytosis Slight; Mean Platelet Volume 9.2; Monocytes # (A) 0.4 k/uL (0-1.0); Monocytes % (A) 5 %; Neutrophils # (A) 6.8 k/uL (1.3-7.7); Neutrophils % (A) 76 %; Platelet Count 175 k/uL (150-450); RDW 16.2 % (11.5-15.5)
[2019-02-17 06:34] LABS: Glucose,Whole Blood 145 mg/dL (75-99)
[2019-02-17] MEDS: LEVOTHYROXINE 100 MCG TAB PO SCH (06:45)
[2019-02-17] MEDS: INSULIN ASPART (NovoLOG) 100 UNIT/ML VIAL SQ SCH ×4 (06:45→22:01)
[2019-02-17] MEDS: GLIMEPIRIDE 1 MG TAB PO SCH (06:45)
[2019-02-17] MEDS: PANTOPRAZOLE 40 MG TABLET PO SCH (06:45)
[2019-02-17] MEDS: IPRATROPIUM-ALBUTEROL 3 ML NEB INHALATION SCH ×3 (07:53→19:25)
[2019-02-17] MEDS: APIXABAN 5 MG TAB PO SCH ×2 (08:43→20:20)
[2019-02-17] MEDS: POTASSIUM CHLORIDE ER 20 MEQ TAB.ER PO SCH (08:43)
[2019-02-17] MEDS: AMIODARONE 200 MG TAB PO SCH ×3 (08:43→20:20)
[2019-02-17] MEDS: FUROSEMIDE 10 MG/ML 4 ML VIAL IV SCH (08:44)
[2019-02-17] MEDS: METOPROLOL TARTRATE 50 MG TAB PO SCH ×2 (08:44→20:20)
[2019-02-17] MEDS: DOCUSATE 100 MG CAP PO SCH (08:44)
[2019-02-17 11:51] LABS: Glucose,Whole Blood 104 mg/dL (75-99)
--- NOTE | 2019-02-17 15:33 | P.PN ---
Subjective Progress Note Date: 02/17/19 This is an 78-year-old female who presented to the hospital with urinary tract infection with hypotension and septic shock, secondary to Proteus mirabilis and E. coli. Patient also received treatment for congestive cardiac failure. She continues to be in atrial fibrillation today her heart rate is 106, she is on amiodarone and Eliquis. We'll increase her dose of beta darius today to 50 mg one tablet by mouth twice a day and continue the rest of her medications. 02/16/2019 Patient was seen and examined this morning, continues to diurese on her IV Lasix. Heart rate maintaining in the 90s today. Blood pressure 118/60. White blood cell count 10.2, hemoglobin 11.1, platelet count 75. Sodium 143, potassium 4.4, BUN 47 and creatinine 1.3. 02/17/2019 Patient seen and examined this morning, it appears that she may have had an episode of tachycardia through the night, however for the most part her heart rate is stable. We will increase the dose of amiodarone to 3 times a day today. Discontinue the IV Lasix and change control specialist to oral diuretics today. Objective - Vital Signs Vital signs: Vital Signs Temp 97.1 F L 02/17/19 12:00 Pulse 99 02/17/19 14:15 Resp 20 02/17/19 14:00 BP 112/70 02/17/19 12:00 Pulse Ox 100 02/17/19 07:53 Intake & Output 02/16/19 02/17/19 02/17/19 18:59 06:59 18:59 Intake Total 960 480 Output Total 750 1300 1000 Balance 210 -1300 -520 Weight 113.1 kg 113.1 kg Intake: Oral 960 480 Output: Urine 750 1300 1000 Other: Voiding Method Indwelling Catheter Bedpan Indwelling Catheter Diaper Indwelling Catheter # Bowel Movements 1 1 1 - Exam HEAD: Normocephalic/atraumatic. EYES: Normal reaction of pupils, equal size. Conjunctiva pink, sclera white. NOSE: Clear with pink turbinates. THROAT: No erythema or exudates. NECK: No masses, no JVD, no thyroid enlargement, no adenopathy. CHEST: No chest wall deformity. Symmetrical expansion. LUNGS: Equal air entry with lumbar crackles at the right lower lobe, posteriorly, but no wheeze, rhonchi or dullness. CVS: Regular rate and rhythm, normal S1 and S2, no gallops, no murmurs, no rubs ABDOMEN: Soft, nontender. No hepatosplenomegaly, normal bowel sounds, no guarding or rigidity. EXTREMITIES: No clubbing, 2+ lower extremity edema lower extremities are marino wrapped no cyanosis, 2+ pulses and upper and lower extremities. MUSCULOSKELETAL: Muscle strength and tone normal. SPINE: No scoliosis or deformity SKIN: No rashes CENTRAL NERVOUS SYSTEM: Alert and oriented -3. No focal deficits, tone is normal in all 4 extremities. PSYCHIATRIC: Alert and oriented -3. Appropriate affect. Intact judgment and insight. - Labs CBC & Chem 7: 02/17/19 06:09 02/16/19 05:31 Labs: Abnormal Lab Results - Last 24 Hours (Table) 02/16/19 02/16/19 02/17/19 Range/Units 16:35 21:17 06:09 RBC 3.30 L (3.80-5.40) m/uL Hgb 10.3 L (11.4-16.0) gm/dL Hct 32.2 L (34.0-46.0) % RDW 16.2 H (11.5-15.5) % POC Glucose (mg/dL) 129 H 257 H (75-99) mg/dL 02/17/19 02/17/19 Range/Units 06:31 11:50 RBC (3.80-5.40) m/uL Hgb (11.4-16.0) gm/dL Hct (34.0-46.0) % RDW (11.5-15.5) % POC Glucose (mg/dL) 145 H 104 H (75-99) mg/dL Assessment and Plan Plan: Assessment: #1. Acute urinary tract infection with septic shock secondary to Proteus mirabilis and ischial brachial coli #2. Congestive heart failure diastolic acute on chronic improved with diuretics, echo showed low normal left ventricle systolic function with an EF of 50-55%, mild mitral, mild tricuspid regurgitation, and mild to moderate pulmonary hypertension #3. Morbid obesity #4. Benign essential hypertension #5. History of DVT #6. History of chronic kidney disease unspecified #7. Diabetes mellitus type 2 #8. Chronic obstructive pulmonary disease #9. Previous history of tobacco use #10. History of sleep apnea syndrome #11. Chronic atrial fibrillation on Eliquis #12. Bilateral lower extremity cellulitis and lymphedema Plan From cardiology's perspective, we'll discontinue the IV Lasix and start the patient on oral diuretics today. Increase dose of amiodarone to a 3 times a day dose. TUBE BLOWER note
[2019-02-17] MEDS: FUROSEMIDE 40 MG TAB PO SCH (16:11)
[2019-02-17 16:38] LABS: Glucose,Whole Blood 114 mg/dL (75-99)
[2019-02-17] MEDS: FAMOTIDINE 20 MG TAB PO SCH (20:20)
[2019-02-17] MEDS: ATORVASTATIN 40 MG TAB PO SCH (20:20)
[2019-02-17 20:42] LABS: Glucose,Whole Blood 121 mg/dL (75-99)
[2019-02-18 06:04] LABS: Glucose,Whole Blood 135 mg/dL (75-99)
[2019-02-18] MEDS: INSULIN ASPART (NovoLOG) 100 UNIT/ML VIAL SQ SCH ×4 (06:20→22:03)
[2019-02-18] MEDS: PANTOPRAZOLE 40 MG TABLET PO SCH (06:22)
[2019-02-18] MEDS: GLIMEPIRIDE 1 MG TAB PO SCH (06:22)
[2019-02-18] MEDS: LEVOTHYROXINE 100 MCG TAB PO SCH (06:22)
[2019-02-18] MEDS: IPRATROPIUM-ALBUTEROL 3 ML NEB INHALATION SCH ×3 (06:58→19:47)
[2019-02-18] MEDS: FUROSEMIDE 40 MG TAB PO SCH ×2 (08:59→16:48)
[2019-02-18] MEDS: POTASSIUM CHLORIDE ER 20 MEQ TAB.ER PO SCH (08:59)
[2019-02-18] MEDS: APIXABAN 5 MG TAB PO SCH ×2 (08:59→20:17)
[2019-02-18] MEDS: DOCUSATE 100 MG CAP PO SCH (08:59)
[2019-02-18] MEDS: METOPROLOL TARTRATE 50 MG TAB PO SCH ×2 (08:59→20:17)
[2019-02-18] MEDS: AMIODARONE 200 MG TAB PO SCH ×3 (09:00→20:17)
[2019-02-18 11:57] LABS: Glucose,Whole Blood 164 mg/dL (75-99)
[2019-02-18] MEDS: VANCOMYCIN 2,000 MG in SODIUM CHLORIDE 0.9% 500 ML 500 ML IVPB SCH (12:07)
[2019-02-18 17:15] LABS: Glucose,Whole Blood 150 mg/dL (75-99)
[2019-02-18] MEDS: ATORVASTATIN 40 MG TAB PO SCH (20:17)
[2019-02-18] MEDS: FAMOTIDINE 20 MG TAB PO SCH (20:17)
[2019-02-19] MEDS: traMADol 50 MG TAB PO PRN (01:40)
[2019-02-19 06:27] LABS: Glucose,Whole Blood 140 mg/dL (75-99)
[2019-02-19 06:47] LABS: Anisocytosis Slight; Basophils # (A) 0.1 k/uL (0-0.2); Basophils % (A) 1 %; Eosinophils # (A) 0.2 k/uL (0-0.7); Eosinophils % (A) 2 %; HCT 32.1 % (34.0-46.0); HGB 10.7 gm/dL (11.4-16.0); Lymphocytes # (A) 1.4 k/uL (1.0-4.8); Lymphocytes % (A) 15 %; MCH 32.6 pg (25.0-35.0); MCHC 33.5 g/dL (31.0-37.0); MCV 97.4 fL (80.0-100.0); Macrocytosis Slight; Monocytes # (A) 0.3 k/uL (0-1.0); Monocytes % (A) 4 %; Neutrophils # (A) 7.2 k/uL (1.3-7.7); Neutrophils % (A) 78 %; Platelet Count 179 k/uL (150-450); RBC 3.29 m/uL (3.80-5.40); RDW 16.4 % (11.5-15.5); WBC 9.4 k/uL (3.8-10.6)
[2019-02-19] MEDS: INSULIN ASPART (NovoLOG) 100 UNIT/ML VIAL SQ SCH ×4 (06:48→20:21)
[2019-02-19] MEDS: GLIMEPIRIDE 1 MG TAB PO SCH (06:48)
[2019-02-19] MEDS: LEVOTHYROXINE 100 MCG TAB PO SCH (06:48)
[2019-02-19] MEDS: PANTOPRAZOLE 40 MG TABLET PO SCH (06:48)
[2019-02-19 07:02] LABS: Calcium 8.5 mg/dL (8.4-10.2); Potassium 3.1 mmol/L (3.5-5.1)
[2019-02-19] MEDS: IPRATROPIUM-ALBUTEROL 3 ML NEB INHALATION SCH ×3 (07:57→20:08)
--- NOTE | 2019-02-19 09:21 | P.PN ---
Subjective Progress Note Date: 02/18/19 78-year-old female who presented to the hospital with urinary tract infection with hypotension and septic shock, secondary to Proteus mirabilis and E. coli. Patient also received treatment for congestive cardiac failure. She continues to be in atrial fibrillation today her heart rate is 106, she is on amiodarone and Eliquis. 02/18/2019 Patient is seen and evaluated in room at bedside; denies any specific complaints Vital signs with temperature of 97.3, pulse 96-110, respirations 16 and blood pressure of 122/90 with SpO2 of 99% on 2 L Laboratory review shows a stable creatinine of 1.13; blood sugars are markedly improved and ranging between 121 07/16/1951 A. fib with RVR; cardiology is following; patient continues to have occasional episodes of tachycardia; patient is maintained on oral amiodarone and dose has been increased to 3 times a day and metoprolol is increased Congestive heart failure; clinically improved and patient has been switched to oral diuretics UTI; urine culture grew Proteus mirabilis and E. coli; sensitivities are still pending; we will start patient on IV Rocephin to final culture report is available Objective - Vital Signs Vital signs: Vital Signs Temp 97.1 F L 02/18/19 08:00 Pulse 114 H 02/18/19 08:00 Resp 16 02/18/19 08:00 BP 102/61 02/18/19 08:00 Pulse Ox 97 02/18/19 08:00 Intake & Output 02/17/19 02/18/19 02/18/19 18:59 06:59 18:59 Intake Total 700 240 Output Total 1050 1100 Balance -350 -1100 240 Weight 126.2 kg Intake: IV 100 Piperacillin-Tazobactam 3 100 .375 gm In Sodium Chloride 0.9% 100 ml @ 25 mls/hr IVPB Q8H [facility] Rx#: [id number] Oral 600 240 Output: Urine 1050 1100 Other: Voiding Method Indwelling Catheter Indwelling Catheter Indwelling Catheter # Voids 1 1 # Bowel Movements 1 - Exam HEAD: Normocephalic/atraumatic. EYES: Normal reaction of pupils, equal size. Conjunctiva pink, sclera white. NOSE: Clear with pink turbinates. THROAT: No erythema or exudates. NECK: No masses, no JVD, no thyroid enlargement, no adenopathy. CHEST: No chest wall deformity. Symmetrical expansion. LUNGS: Equal air entry with lumbar crackles at the right lower lobe, posteriorly, but no wheeze, rhonchi or dullness. CVS: Regular rate and rhythm, normal S1 and S2, no gallops, no murmurs, no rubs ABDOMEN: Soft, nontender. No hepatosplenomegaly, normal bowel sounds, no guarding or rigidity. EXTREMITIES: No clubbing, 2+ lower extremity edema lower extremities are marino wrapped no cyanosis, 2+ pulses and upper and lower extremities. MUSCULOSKELETAL: Muscle strength and tone normal. - Labs CBC & Chem 7: 02/19/19 06:13 02/19/19 06:13 Labs: Abnormal Lab Results - Last 24 Hours (Table) 02/17/19 02/17/19 02/17/19 Range/Units 11:50 16:34 20:40 Creatinine (0.52-1.04) mg/dL POC Glucose (mg/dL) 104 H 114 H 121 H (75-99) mg/dL 02/18/19 02/18/19 Range/Units 06:03 07:58 Creatinine 1.13 H (0.52-1.04) mg/dL POC Glucose (mg/dL) 135 H (75-99) mg/dL Assessment and Plan Assessment: 1. Acute urinary tract infection with septic shock secondary to Proteus mirabilis and ischial brachial coli 2. Congestive heart failure diastolic acute on chronic improved with diuretics, echo showed low normal left ventricle systolic function with an EF of 50-55%, mild mitral, mild tricuspid regurgitation, and mild to moderate pulmonary hypertension 3. A. fib with RVR 4. Benign essential hypertension 5. History of DVT 6. History of chronic kidney disease unspecified 7. Diabetes mellitus type 2 8. Chronic obstructive pulmonary disease 9. Previous history of tobacco use 10. History of sleep apnea syndrome 11. Obesity 12. Bilateral lower extremity cellulitis and lymphedema Time with Patient: Greater than 30
[2019-02-19] MEDS: DOCUSATE 100 MG CAP PO SCH (09:33)
[2019-02-19] MEDS: AMIODARONE 200 MG TAB PO SCH ×3 (09:38→20:25)
[2019-02-19] MEDS: POTASSIUM CHLORIDE ER 20 MEQ TAB.ER PO SCH ×3 (09:39→20:39)
[2019-02-19] MEDS: APIXABAN 5 MG TAB PO SCH ×2 (09:39→20:25)
[2019-02-19] MEDS: METOPROLOL TARTRATE 50 MG TAB PO SCH ×2 (09:39→20:25)
[2019-02-19] MEDS: FUROSEMIDE 40 MG TAB PO SCH ×2 (09:39→16:07)
[2019-02-19 12:35] LABS: Glucose,Whole Blood 198 mg/dL (75-99)
[2019-02-19] MEDS: BENZOCAINE/MENTHOL LOZENG 1 EACH LOZENGE MUCOUS MEM PRN (16:13)
[2019-02-19 17:00] LABS: Glucose,Whole Blood 158 mg/dL (75-99)
[2019-02-19 20:13] LABS: Glucose,Whole Blood 162 mg/dL (75-99)
[2019-02-19] MEDS: ATORVASTATIN 40 MG TAB PO SCH (20:25)
[2019-02-19] MEDS: SILVER sulfADIAZINE Cream 400 GM 1 APPLIC APPLIC TOPICAL SCH (20:25)
[2019-02-19] MEDS: FAMOTIDINE 20 MG TAB PO SCH (20:25)
[2019-02-19] MEDS: VANCOMYCIN 2,000 MG in SODIUM CHLORIDE 0.9% 500 ML 500 ML IVPB SCH (23:24)
[2019-02-20 04:34] LABS: Glucose,Whole Blood 127 mg/dL (75-99)
[2019-02-20 06:10] LABS: Glucose,Whole Blood 133 mg/dL (75-99)
[2019-02-20] MEDS: INSULIN ASPART (NovoLOG) 100 UNIT/ML VIAL SQ SCH ×4 (06:23→21:05)
[2019-02-20] MEDS: GLIMEPIRIDE 1 MG TAB PO SCH (06:26)
[2019-02-20] MEDS: PANTOPRAZOLE 40 MG TABLET PO SCH (06:27)
[2019-02-20] MEDS: LEVOTHYROXINE 100 MCG TAB PO SCH (06:27)
[2019-02-20 07:01] LABS: Basophils # (A) 0.1 k/uL (0-0.2); Basophils % (A) 1 %; Eosinophils # (A) 0.1 k/uL (0-0.7); Eosinophils % (A) 1 %; HGB 10.9 gm/dL (11.4-16.0); Hypochromasia Slight; Lymphocytes # (A) 1.1 k/uL (1.0-4.8); Lymphocytes % (A) 10 %; MCH 31.2 pg (25.0-35.0); MCHC 32.1 g/dL (31.0-37.0); MCV 97.1 fL (80.0-100.0); Mean Platelet Volume 7.5; Monocytes # (A) 0.4 k/uL (0-1.0); Monocytes % (A) 4 %; Neutrophils % (A) 83 %; Platelet Count 190 k/uL (150-450); RDW 15.3 % (11.5-15.5); WBC 10.9 k/uL (3.8-10.6)
[2019-02-20 07:16] LABS: Calcium 8.8 mg/dL (8.4-10.2)
[2019-02-20] MEDS: IPRATROPIUM-ALBUTEROL 3 ML NEB INHALATION SCH ×3 (08:36→20:44)
[2019-02-20] MEDS: APIXABAN 5 MG TAB PO SCH ×2 (09:02→21:00)
[2019-02-20] MEDS: METOPROLOL TARTRATE 50 MG TAB PO SCH ×2 (09:02→21:01)
[2019-02-20] MEDS: AMIODARONE 200 MG TAB PO SCH ×3 (09:02→21:01)
[2019-02-20] MEDS: FUROSEMIDE 40 MG TAB PO SCH ×2 (09:02→16:36)
[2019-02-20] MEDS: POTASSIUM CHLORIDE ER 20 MEQ TAB.ER PO SCH ×2 (09:02→21:01)
[2019-02-20] MEDS: DOCUSATE 100 MG CAP PO SCH (09:02)
--- NOTE | 2019-02-20 11:32 | P.PN ---
Subjective Progress Note Date: 02/19/19 Principal diagnosis: UTI/sepsis; Proteus mirabilis and E. coli Acute on chronic diastolic CHF A. fib with RVR 78-year-old female who presented to the hospital with urinary tract infection with hypotension and septic shock, secondary to Proteus mirabilis and E. coli. Patient also received treatment for congestive cardiac failure. She continues to be in atrial fibrillation today her heart rate is 106, she is on amiodarone and Eliquis. 02/18/2019 Patient is seen and evaluated in room at bedside; denies any specific complaints Vital signs with temperature of 97.3, pulse 96-110, respirations 16 and blood pressure of 122/90 with SpO2 of 99% on 2 L Laboratory review shows a stable creatinine of 1.13; blood sugars are markedly improved and ranging between 121 07/16/1951 A. fib with RVR; cardiology is following; patient continues to have occasional episodes of tachycardia; patient is maintained on oral amiodarone and dose has been increased to 3 times a day and metoprolol is increased Congestive heart failure; clinically improved and patient has been switched to oral diuretics UTI; urine culture grew Proteus mirabilis and E. coli; sensitivities are still pending; we will start patient on IV Rocephin to final culture report is nithya jose 02/19/2019 Patient is seen and evaluated in room at bedside; voices no new complaints; vital signs remained stable; labs are stable with a white blood count of 9.7, he moglobin 10.7 and platelet count of 179; sodium 143, potassium 3.1, BUN of 47 with creatinine 1.04; urine culture growing Proteus mirabilis and E. coli was reported on 02/10/2019; final culture and sensitivity still pending; we will order repeat urine culture; nursing staff advised to call lab to receive report of final urine culture and sensitivity Patient remains on IV Rocephin 1 g every 24 hours Objective - Vital Signs Vital signs: Vital Signs Temp 97.6 F 02/19/19 09:00 Pulse 102 H 02/19/19 09:00 Resp 18 02/19/19 09:00 BP 101/65 02/19/19 09:00 Pulse Ox 98 02/19/19 09:00 Intake & Output 02/18/19 02/19/19 02/19/19 18:59 06:59 18:59 Intake Total 1450 360 Output Total 2000 Balance -550 360 Weight 125.9 kg Intake: IV 80 0.9 sodium chloride 80 Intake, IV Titration 500 Amount Vancomycin 2,000 mg In 500 Sodium Chloride 0.9% 500 ml 500 ml @ 167 mls/hr IVPB Q36H [facility] Rx#: [id number] Oral 870 360 Output: Urine 2000 Other: Voiding Method Indwelling Catheter Indwelling Catheter # Voids 1 # Bowel Movements 0 3 - Labs CBC & Chem 7: 02/20/19 06:24 02/20/19 06:24 Labs: Abnormal Lab Results - Last 24 Hours (Table) 02/18/19 02/18/19 02/19/19 Range/Units 11:37 16:45 06:13 RBC (3.80-5.40) m/uL Hgb (11.4-16.0) gm/dL Hct (34.0-46.0) % RDW (11.5-15.5) % Potassium 3.1 L (3.5-5.1) mmol/L BUN 47 H (7-17) mg/dL Glucose 136 H (74-99) mg/dL POC Glucose (mg/dL) 164 H 150 H (75-99) mg/dL 02/19/19 02/19/19 Range/Units 06:13 06:22 RBC 3.29 L (3.80-5.40) m/uL Hgb 10.7 L (11.4-16.0) gm/dL Hct 32.1 L (34.0-46.0) % RDW 16.4 H (11.5-15.5) % Potassium (3.5-5.1) mmol/L BUN (7-17) mg/dL Glucose (74-99) mg/dL POC Glucose (mg/dL) 140 H (75-99) mg/dL
[2019-02-20 11:39] LABS: Glucose,Whole Blood 171 mg/dL (75-99)
--- NOTE | 2019-02-20 16:31 | P.PN ---
Subjective Progress Note Date: 02/20/19 Principal diagnosis: UTI/sepsis; Proteus mirabilis and E. coli Acute on chronic diastolic CHF A. fib with RVR 78-year-old female who presented to the hospital with urinary tract infection with hypotension and septic shock, secondary to Proteus mirabilis and E. coli. Patient also received treatment for congestive cardiac failure. She continues to be in atrial fibrillation today her heart rate is 106, she is on amiodarone and Eliquis. 02/18/2019 Patient is seen and evaluated in room at bedside; denies any specific complaints Vital signs with temperature of 97.3, pulse 96-110, respirations 16 and blood pressure of 122/90 with SpO2 of 99% on 2 L Laboratory review shows a stable creatinine of 1.13; blood sugars are markedly improved and ranging between 121 07/16/1951 A. fib with RVR; cardiology is following; patient continues to have occasional episodes of tachycardia; patient is maintained on oral amiodarone and dose has been increased to 3 times a day and metoprolol is increased Congestive heart failure; clinically improved and patient has been switched to oral diuretics UTI; urine culture grew Proteus mirabilis and E. coli; sensitivities are still pending; we will start patient on IV Rocephin to final culture report is nithya ilhilda 02/19/2019 Patient is seen and evaluated in room at bedside; voices no new complaints; vital signs remained stable; labs are stable with a white blood count of 9.7, he moglobin 10.7 and platelet count of 179; sodium 143, potassium 3.1, BUN of 47 with creatinine 1.04; urine culture growing Proteus mirabilis and E. coli was reported on 02/10/2019; final culture and sensitivity still pending; we will order repeat urine culture; nursing staff advised to call lab to receive report of final urine culture and sensitivity Patient remains on IV Rocephin 1 g every 24 hours 02/20/2019 Patient is seen and evaluated at bedside sitting up in bedside chair; patient has no specific complaints Vital signs are stable with a temperature of 97.2, pulse 98, respiration 18 and blood pressure 135/77 with SpO2 of 99% on 2 L Labs show an uptrending white blood count of 10.9, hemoglobin of 10.9; sodium 143, potassium 4.0 with a B UN of 48 and creatinine 1.0 Final Urine culture reported on 02/10/2019 is still pending; patient remains on IV Rocephin; repeat urine culture is pending; patient likely discharge in next 24 hours if repeat urine culture remains negative Objective - Vital Signs Vital signs: Vital Signs Temp 97.3 F L 02/20/19 08:00 Pulse 104 H 02/20/19 08:52 Resp 18 02/20/19 08:00 BP 121/68 02/20/19 08:00 Pulse Ox 99 02/20/19 08:39 Intake & Output 02/19/19 02/20/19 02/20/19 18:59 06:59 18:59 Intake Total 1440 300 Output Total 700 1800 350 Balance 740 -1800 -50 Weight 126.4 kg Intake: IV 80 0.9 sodium chloride 80 Oral 1360 300 Output: Urine 700 1800 350 Other: Voiding Method Indwelling Catheter Indwelling Catheter Indwelling Catheter # Voids 2 # Bowel Movements 3 - Exam HEAD: Normocephalic/atraumatic. EYES: Normal reaction of pupils, equal size. Conjunctiva pink, sclera white. NOSE: Clear with pink turbinates. THROAT: No erythema or exudates. NECK: No masses, no JVD, no thyroid enlargement, no adenopathy. CHEST: No chest wall deformity. Symmetrical expansion. LUNGS: Equal air entry with lumbar crackles at the right lower lobe, p osteriorly, but no wheeze, rhonchi or dullness. CVS: Regular rate and rhythm, normal S1 and S2, no gallops, no murmurs, no rubs ABDOMEN: Soft, nontender. No hepatosplenomegaly, normal bowel sounds, no guarding or rigidity. EXTREMITIES: No clubbing, 2+ lower extremity edema lower extremities are marino wrapped no cyanosis, 2+ pulses and upper and lower extremities. MUSCULOSKELETAL: Muscle strength and tone normal. - Labs CBC & Chem 7: 02/20/19 06:24 02/20/19 06:24 Labs: Abnormal Lab Results - Last 24 Hours (Table) 02/19/19 02/19/19 02/19/19 Range/Units 11:26 16:39 20:11 WBC (3.8-10.6) k/uL RBC (3.80-5.40) m/uL Hgb (11.4-16.0) gm/dL Neutrophils # (1.3-7.7) k/uL BUN (7-17) mg/dL Glucose (74-99) mg/dL POC Glucose (mg/dL) 198 H 158 H 162 H (75-99) mg/dL 02/20/19 02/20/19 02/20/19 Range/Units 04:32 06:09 06:24 WBC (3.8-10.6) k/uL RBC (3.80-5.40) m/uL Hgb (11.4-16.0) gm/dL Neutrophils # (1.3-7.7) k/uL BUN 48 H (7-17) mg/dL Glucose 139 H (74-99) mg/dL POC Glucose (mg/dL) 127 H 133 H (75-99) mg/dL 02/20/19 Range/Units 06:24 WBC 10.9 H (3.8-10.6) k/uL RBC 3.50 L (3.80-5.40) m/uL Hgb 10.9 L (11.4-16.0) gm/dL Neutrophils # 9.0 H (1.3-7.7) k/uL BUN (7-17) mg/dL Glucose (74-99) mg/dL POC Glucose (mg/dL) (75-99) mg/dL Microbiology - Last 24 Hours (Table) 02/19/19 09:45 Urine Culture - Preliminary Urine,Catheterized Assessment and Plan Assessment: 1. Acute urinary tract infection with septic shock secondary to Proteus mirabilis and ischial brachial coli 2. Congestive heart failure diastolic acute on chronic improved with diuretics, echo showed low normal left ventricle systolic function with an EF of 50-55%, mild mitral, mild tricuspid regurgitation, and mild to moderate pulmonary hypertension 3. A. fib with RVR 4. Benign essential hypertension 5. History of DVT 6. History of chronic kidney disease unspecified 7. Diabetes mellitus type 2 8. Chronic obstructive pulmonary disease 9. Previous history of tobacco use 10. History of sleep apnea syndrome 11. Obesity 12. Bilateral lower extremity cellulitis and lymphedema Time with Patient: Greater than 30
[2019-02-20 16:39] LABS: Glucose,Whole Blood 163 mg/dL (75-99)
[2019-02-20] MEDS: ATORVASTATIN 40 MG TAB PO SCH (21:00)
[2019-02-20] MEDS: FAMOTIDINE 20 MG TAB PO SCH (21:00)
[2019-02-20] MEDS: BENZOCAINE/MENTHOL LOZENG 1 EACH LOZENGE MUCOUS MEM PRN (21:01)
[2019-02-20 21:02] LABS: Glucose,Whole Blood 171 mg/dL (75-99)
[2019-02-20] MEDS: SILVER sulfADIAZINE Cream 400 GM 1 APPLIC APPLIC TOPICAL SCH (21:02)
[2019-02-21 06:10] LABS: Anisocytosis Slight; Basophils % (A) 0 %; Eosinophils # (A) 0.1 k/uL (0-0.7); Eosinophils % (A) 1 %; HCT 34.2 % (34.0-46.0); HGB 10.9 gm/dL (11.4-16.0); Hypochromasia Slight; Lymphocytes # (A) 1.3 k/uL (1.0-4.8); Lymphocytes % (A) 14 %; MCH 31.2 pg (25.0-35.0); MCHC 31.9 g/dL (31.0-37.0); MCV 97.6 fL (80.0-100.0); Macrocytosis Slight; Mean Platelet Volume 7.8; Monocytes # (A) 0.5 k/uL (0-1.0); Monocytes % (A) 5 %; Neutrophils # (A) 7.4 k/uL (1.3-7.7); Neutrophils % (A) 78 %; Platelet Count 212 k/uL (150-450); RDW 16.5 % (11.5-15.5); WBC 9.6 k/uL (3.8-10.6)
[2019-02-21] MEDS: LEVOTHYROXINE 100 MCG TAB PO SCH (06:23)
[2019-02-21] MEDS: GLIMEPIRIDE 1 MG TAB PO SCH (06:23)
[2019-02-21 06:24] LABS: Glucose,Whole Blood 126 mg/dL (75-99)
[2019-02-21] MEDS: INSULIN ASPART (NovoLOG) 100 UNIT/ML VIAL SQ SCH (06:25)
[2019-02-21] MEDS: PANTOPRAZOLE 40 MG TABLET PO SCH (06:25)
[2019-02-21 07:52] VITALS: BP 130/89; RESP 16; TEMP 97.6
[2019-02-21] MEDS: IPRATROPIUM-ALBUTEROL 3 ML NEB INHALATION SCH (08:27)
[2019-02-21] MEDS: DOCUSATE 100 MG CAP PO SCH (08:37)
[2019-02-21] MEDS: APIXABAN 5 MG TAB PO SCH (08:37)
[2019-02-21] MEDS: AMIODARONE 200 MG TAB PO SCH (08:37)
[2019-02-21] MEDS: FUROSEMIDE 40 MG TAB PO SCH (08:37)
[2019-02-21] MEDS: METOPROLOL TARTRATE 50 MG TAB PO SCH (08:37)
[2019-02-21] MEDS: POTASSIUM CHLORIDE ER 20 MEQ TAB.ER PO SCH (08:37)
[2019-02-21 08:39] VITALS: PULSE 92
--- NOTE | 2019-02-21 09:39 | P.DS ---
Providers Date of admission: 02/10/19 06:26 Expected date of discharge: 02/21/19 Attending physician: Dominick Rosen MD Consults: 02/10/19 06:26 Consult Physician Urgent Consulting Provider: [facility] Consult Reason/Comments: rvr Do you want consulting provider notified?: Yes, Notify in am 02/10/19 11:19 Consult Physician Routine Consulting Provider: Dwain Hanley Consult Reason/Comments: sepsis, cellulitis Do you want consulting provider notified?: Yes 02/10/19 13:54 Consult Physician Urgent Consulting Provider: Chris Arnold Consult Reason/Comments: icu management Do you want consulting provider notified?: Already Contacted Primary care physician: Linnea Alonso - Discharge Diagnosis(es) (1) Severe sepsis Current Visit: Yes Status: Acute (2) Acute on chronic diastolic (congestive) heart failure Current Visit: Yes Status: Acute (3) Cellulitis of left lower extremity Current Visit: Yes Status: Acute (4) Acute kidney injury Current Visit: Yes Status: Acute (5) Subtherapeutic international normalized ratio (INR) Current Visit: Yes Status: Acute (6) Atrial fibrillation with rapid ventricular response Current Visit: Yes Status: Acute (7) Leukocytosis Current Visit: Yes Status: Acute (8) Acute cystitis Current Visit: Yes Status: Acute (9) Type 2 diabetes mellitus Current Visit: Yes Status: Acute (10) Septic shock Current Visit: Yes Status: Acute Hospital Course: 78-year-old female who presented to the hospital with urinary tract infection with hypotension and septic shock, secondary to Proteus mirabilis and E. coli. Patient also received treatment for congestive cardiac failure. She continues to be in atrial fibrillation today her heart rate is 106, she is on amiodarone and Eliquis. 02/18/2019. Patient is seen and evaluated in room at bedside; denies any specific complaints Vital signs with temperature of 97.3, pulse 96-110, respirations 16 and blood pressure of 122/90 with SpO2 of 99% on 2 L Laboratory review shows a stable creatinine of 1.13; blood sugars are markedly improved and ranging between 121 07/16/1951 A. fib with RVR; cardiology is following; patient continues to have occasional episodes of tachycardia; patient is maintained on oral amiodarone and dose has been increased to 3 times a day and metoprolol is increased. Congestive heart failure; clinically improved and patient has been switched to oral diuretics UTI; urine culture grew Proteus mirabilis and E. coli; sensitivities are still pending; we will start patient on IV Rocephin to final culture report is available 02/19/2019. Patient is seen and evaluated in room at bedside; voices no new complaints; vital signs remained stable; labs are stable with a white blood count of 9.7, hemoglobin 10.7 and platelet count of 179; sodium 143, potassium 3.1, BUN of 47 with creatinine 1.04; urine culture growing Proteus mirabilis and E. coli was reported on 02/10/2019; final culture and sensitivity still pending; we will order repeat urine culture; nursing staff advised to call lab to receive report of final urine culture and sensitivity. Patient remains on IV Rocephin 1 g every 24 hours 02/20/2019. Patient is seen and evaluated at bedside sitting up in bedside chair; patient has no specific complaints Vital signs are stable with a temperature of 97.2, pulse 98, respiration 18 and blood pressure 135/77 with SpO2 of 99% on 2 L Labs show an uptrending white blood count of 10.9, hemoglobin of 10.9; sodium 143, potassium 4.0 with a B UN of 48 and creatinine 1.0 Final Urine culture reported on 02/10/2019 is still pending; patient remains on IV Rocephin; repeat urine culture is pending; patient likely discharge in next 24 hours if repeat urine culture remains negative On 02/21 pt continues to improve, she has diuresed 2.5 L in the past 24 hours and urine culture with no growth. Her HR has been controlled on lopressor and amioda adrian. She remains weak and complains of significant LE edema. Pt is discharged in stable condition and recommended to continue amiodarone, lopressor and eliquis. She will continue 40 mg lasix bid as well as metolazone upon discharge. Hayes remains in place. She will complete an additional 5 day course of omnicef upon discharge. Pt is recommended to follow up with PCP and cardiology within 1 week of discharge from SNF. During her admission, pt underwent echo which showed normal LVEF, diastolic dysfunction, moderate MR and mild . Discharge exam: HEAD: Normocephalic/atraumatic. EYES: Normal reaction of pupils, equal size. Conjunctiva pink, sclera white. NECK: No masses, no JVD, no thyroid enlargement, no adenopathy. CHEST: No chest wall deformity. Symmetrical expansion. LUNGS: Equal air entry with fine crackles at bases posteriorly, but no wheeze, rhonchi or dullness. CVS: Regular rate and rhythm, normal S1 and S2, no gallops, no murmurs, no rubs ABDOMEN: Soft, nontender. No hepatosplenomegaly, normal bowel sounds, no guarding or rigidity. EXTREMITIES: No clubbing, 2+ lower extremity edema lower extremities are marino wrapped no cyanosis, 2+ pulses and upper and lower extremities. MUSCULOSKELETAL: Muscle strength and tone normal. Patient Condition at Discharge: Serious Plan - Discharge Summary Discharge Rx Participant: No New Discharge Prescriptions: New Glimepiride [Amaryl] 1 mg PO AC-BRKFST #30 tab Docusate [Colace] 100 mg PO DAILY cap Amiodarone [Cordarone] 200 mg PO TID #30 tab Apixaban [Eliquis] 5 mg PO BID #60 tab Furosemide [Lasix] 40 mg PO BID@0900,1600 #60 tab Metoprolol Tartrate [Lopressor] 50 mg PO BID #60 tab Cefdinir [Omnicef] 300 mg PO Q12HR #10 capsule Pantoprazole [Protonix] 40 mg PO AC-BRKFST #30 tablet. SILVER sulfADIAZINE Cream [Silvadene 1% Cream] 1 applic TOPICAL HS #100 g Acetaminophen Tab [Tylenol] 650 mg PO Q4HR PRN tab PRN Reason: Fever and/ or MILD Pain Continue Albuterol Inhaler [Ventolin Hfa Inhaler] 2 puff INHALATION RT-Q4H PRN PRN Reason: Shortness Of Breath Isosorbide Mononitrate ER [Imdur] 30 mg PO DAILY Ubidecarenone [Co Q-10] 200 mg PO DAILY Potassium Chloride ER [K-Dur 20] 40 meq PO DAILY Levothyroxine Sodium [Synthroid] 75 mcg PO DAILY traMADol HCL [Ultram] 50 mg PO DAILY PRN PRN Reason: Pain sitaGLIPtin [Januvia] 100 mg PO DAILY Atorvastatin [Lipitor] 40 mg PO HS Allopurinol [Zyloprim] 300 mg PO DAILY Metolazone [Zaroxolyn] 2.5 mg PO DAILY Liothyronine Sodium [Cytomel] 5 mcg PO DAILY Changed Meclizine [Antivert] 25 mg PO TID PRN #0 PRN Reason: Vertigo Discontinued Warfarin Sodium [Coumadin] 2 mg PO HS Furosemide [Lasix] 40 mg PO TID #90 tab Discharge Medication List Albuterol Inhaler [Ventolin Hfa Inhaler] 2 puff INHALATION RT-Q4H PRN 04/29/16 [History] Isosorbide Mononitrate ER [Imdur] 30 mg PO DAILY 01/16/17 [History] Potassium Chloride ER [K-Dur 20] 40 meq PO DAILY 03/22/18 [History] Ubidecarenone [Co Q-10] 200 mg PO DAILY 03/22/18 [History] Allopurinol [Zyloprim] 300 mg PO DAILY 02/10/19 [History] Atorvastatin [Lipitor] 40 mg PO HS 02/10/19 [History] Levothyroxine Sodium [Synthroid] 75 mcg PO DAILY 02/10/19 [History] Liothyronine Sodium [Cytomel] 5 mcg PO DAILY 02/10/19 [History] Metolazone [Zaroxolyn] 2.5 mg PO DAILY 02/10/19 [History] sitaGLIPtin [Januvia] 100 mg PO DAILY 02/10/19 [History] traMADol HCL [Ultram] 50 mg PO DAILY PRN 02/10/19 [History] Acetaminophen Tab [Tylenol] 650 mg PO Q4HR PRN tab 02/21/19 [Rx] Amiodarone [Cordarone] 200 mg PO TID #30 tab 02/21/19 [Rx] Apixaban [Eliquis] 5 mg PO BID #60 tab 02/21/19 [Rx] Cefdinir [Omnicef] 300 mg PO Q12HR #10 capsule 02/21/19 [Rx] Docusate [Colace] 100 mg PO DAILY cap 02/21/19 [Rx] Furosemide [Lasix] 40 mg PO BID@0900,1600 #60 tab 02/21/19 [Rx] Glimepiride [Amaryl] 1 mg PO AC-BRKFST #30 tab 02/21/19 [Rx] Meclizine [Antivert] 25 mg PO TID PRN #0 02/21/19 [Rx] Metoprolol Tartrate [Lopressor] 50 mg PO BID #60 tab 02/21/19 [Rx] Pantoprazole [Protonix] 40 mg PO AC-BRKFST #30 tablet. 02/21/19 [Rx] SILVER sulfADIAZINE Cream [Silvadene 1% Cream] 1 applic TOPICAL HS #100 g 02/21/19 [Rx] Follow up Appointment(s)/Referral(s): Linnea Alonso DO [Primary Care Provider] - 1-2 days Discharge Disposition: TRANSFER TO SNF/ECF
[2019-02-21] MEDS ORDERED: VANCOMYCIN TROUGH DUE 1 EACH MISC MISCELLANE ONE (11:00)
== END 2019-02-21 11:51 | DRG 871 ==
LOC: EC 23:26 → 3SCARD 02-10 06:26 → 2SICU 02-10 08:03 → 3SCARD 02-13 18:17 → 4SSUR 02-16 19:37 → 3SCARD 02-16 23:51
PROVIDERS: ADMIT Family Medicine; ATTEND Family Medicine
PROC: 05HF33Z Insertion of Infusion Device into Left Cephalic Vein, Percutaneous Approach (ICD-10-PCS; principal; 2019-02-10 11:30)
PROC: 05HD33Z Insertion of Infusion Device into Right Cephalic Vein, Percutaneous Approach (ICD-10-PCS; 2019-02-10 11:30)
PROC: 05H933Z Insertion of Infusion Device into Right Brachial Vein, Percutaneous Approach (ICD-10-PCS; 2019-02-15)
DX: A41.59 Other Gram-negative sepsis (principal); I50.33 Acute on chronic diastolic (congestive) heart failure; R65.21 Severe sepsis with septic shock; I13.0 Hypertensive heart and chronic kidney disease with heart failure and stage 1 through stage 4 chronic kidney disease, or unspecified chronic kidney disease; J96.10 Chronic respiratory failure, unspecified whether with hypoxia or hypercapnia; L03.115 Cellulitis of right lower limb; L03.116 Cellulitis of left lower limb; N17.9 Acute kidney failure, unspecified; N18.4 Chronic kidney disease, stage 4 (severe); N30.00 Acute cystitis without hematuria; Z68.42 Body mass index [BMI] 45.0-49.9, adult; A41.51 Sepsis due to Escherichia coli [E. coli]; E11.22 Type 2 diabetes mellitus with diabetic chronic kidney disease; I27.20 Pulmonary hypertension, unspecified; I48.2 Chronic atrial fibrillation; J44.9 Chronic obstructive pulmonary disease, unspecified; E11.42 Type 2 diabetes mellitus with diabetic polyneuropathy; E66.01 Morbid (severe) obesity due to excess calories; I08.1 Rheumatic disorders of both mitral and tricuspid valves; R15.9 Full incontinence of feces; D64.9 Anemia, unspecified; M06.9 Rheumatoid arthritis, unspecified; E03.9 Hypothyroidism, unspecified; E78.5 Hyperlipidemia, unspecified; G47.33 Obstructive sleep apnea (adult) (pediatric); I25.10 Atherosclerotic heart disease of native coronary artery without angina pectoris; I89.0 Lymphedema, not elsewhere classified; K21.9 Gastro-esophageal reflux disease without esophagitis; R79.1 Abnormal coagulation profile; G43.909 Migraine, unspecified, not intractable, without status migrainosus; M10.9 Gout, unspecified; M19.90 Unspecified osteoarthritis, unspecified site; R32 Unspecified urinary incontinence; R19.7 Diarrhea, unspecified; B35.9 Dermatophytosis, unspecified; Z79.01 Long term (current) use of anticoagulants; Z79.4 Long term (current) use of insulin; Z79.890 Hormone replacement therapy; Z79.899 Other long term (current) drug therapy; Z88.2 Allergy status to sulfonamides; Z88.7 Allergy status to serum and vaccine; Z88.8 Allergy status to other drugs, medicaments and biological substances; Z99.81 Dependence on supplemental oxygen; Z90.710 Acquired absence of both cervix and uterus; Z96.651 Presence of right artificial knee joint; Z87.891 Personal history of nicotine dependence; Z86.718 Personal history of other venous thrombosis and embolism; Z87.440 Personal history of urinary (tract) infections; Z87.01 Personal history of pneumonia (recurrent); Z98.42 Cataract extraction status, left eye; Z98.41 Cataract extraction status, right eye; Z96.1 Presence of intraocular lens; Z82.49 Family history of ischemic heart disease and other diseases of the circulatory system; Z84.1 Family history of disorders of kidney and ureter
CPT/HCPCS: 36410; 36415; 71045; 71046; 76937; 80048; 80053; 80202; 81001; 82533; 82565; 83605; 83735; 83880; 84439; 84443; 84484; 85025; 85610; 85730; 87040; 87077; 87086; 87186; 93005; 93306; 94640; 94760; 96361; 96365; 96366; 96375; 96376; 99291

== ENCOUNTER 2019-07-06 10:44 | Inpatient (IN) | payer MEDICARE ==
[2019-07-06] MEDS ORDERED: VANCOMYCIN IV PER PHARMACY 1 EACH MISC MISCELLANE PRN (11:05)
[2019-07-06] MEDS ORDERED: PIPERACILLIN-TAZOBACTAM 3.375 GM in SODIUM CHLORIDE 0.9% 100 ML IVPB STA (11:06)
--- NOTE | 2019-07-06 11:14 | ED ---
General Adult HPI - General Chief complaint: Recheck/Abnormal Lab/Rx Stated complaint: low oxygen Time Seen by Provider: 07/06/19 10:47 Source: patient Mode of arrival: wheelchair Limitations: no limitations - History of Present Illness Initial comments: Dictation was produced using [employer] dictation software. please excuse any grammatical, word or spelling errors. Chief Complaint: 79-year-old female with multiple comorbidities presents with instruction from wound doctor to come to the emergency room to be admitted. History of Present Illness: Patient is a 79-year-old female she has past medical history lymphedema, COPD. She presents today because she was told by the wound doctor to come to the emergency room to be admitted for left lower extremity wound. Patient has history of lymphedema. She is a patient of the wound care center. She saw Dr. Francis today. Son at bedside reports that the doctor look at her wound briefly and told to come immediately to the emergency department. Patient received 2 L nasal cannula at home. According to nurse and nurse transfer there is concern of possible hypoxia. She denies any shortness of breath. She states that she is at baseline from respiratory standpoint today. Patient states that she has worsening pain especially of the heel of the left foot with was observed. She has a history of chronic debility doesn't walk without assistance. The ROS documented in this emergency department record has been reviewed and confirmed by me. Those systems with pertinent positive or negative responses have been documented in the HPI. All other systems are other negative and/or noncontributory. PHYSICAL EXAM: General Impression: Alert and oriented x3, not in acute distress HEENT: Normocephalic atraumatic, extra-ocular movements intact, pupils equal and reactive to light bilaterally, mucous membranes moist. Cardiovascular: Heart regular rate and rhythm, S1&S2 audible, no murmurs, rubs or gallops Chest: Lungs clear to auscultation bilaterally, no rhonchi, no wheeze, no rales Abdomen: Bowel sounds present, abdomen soft, non-tender, non-distended, no organomegaly Musculoskeletal: Pulses present and equal in all extremities, bilateral lymphedema. 2 x 2 centimeters circumferential wound over the plantar heel. There is a necrotic center with surrounding erythema. Wound is wet. Motor: no focal deficits noted Neurological: CN II-XII grossly intact, no focal motor or sensory deficits noted Skin: Intact with no visualized rashes Psych: Normal affect and mood ED course: 79-year-old female presents with wet wound to the left heel. Laboratory evaluation obtained. Leukocytosis of 15.8. Coag panel unremarkable. Foot x-ray shows subcutaneous edema soft tissue swelling. No obvious findings to suggest osteomyelitis. Chest x-ray shows mild cardiomegaly and CHF exacerbation. Patient has no respiratory complaints at this time. Blood cultures pending. Wound cultures obtained. Patient given broad-spectrum antibiotics. There is concern of possible pseudomonal infection of the wound is covered with Zosyn as well. Patient be admitted. Discussed patient case with Dr. Rosen who is willing to accept patient care. Pending review metabolic panel. EKG interpretation: Ventricular rate 108, A. fib with RVR, QRS 76, QTC 487. No HI prolongation, no QTC prolongation, no ST or T-wave changes noted. EKG compared to 02/10/2019 showing no changes. Overall, this EKG is unremarkable - Related Data Home Medications Medication Instructions Recorded Confirmed Isosorbide Mononitrate ER [Imdur] 30 mg PO DAILY 01/16/17 07/06/19 Potassium Chloride ER [K-Dur 20] 40 meq PO DAILY 03/22/18 07/06/19 Ubidecarenone [Co Q-10] 200 mg PO DAILY 03/22/18 07/06/19 Allopurinol [Zyloprim] 300 mg PO DAILY 02/10/19 07/06/19 Atorvastatin [Lipitor] 40 mg PO HS 02/10/19 07/06/19 Liothyronine Sodium [Cytomel] 5 mcg PO DAILY 02/10/19 07/06/19 traMADol HCL [Ultram] 50 mg PO QID PRN 02/10/19 07/06/19 Furosemide [Lasix] 40 mg PO TID 07/06/19 07/06/19 Ipratropium-Albuterol Nebulize 3 ml INHALATION QID PRN 07/06/19 07/06/19 [Duoneb 0.5 mg-3 mg/3 ml Soln] Levothyroxine Sodium [Synthroid] 88 mcg PO DAILY 07/06/19 07/06/19 Meclizine [Antivert] 12.5 mg PO TID 07/06/19 07/06/19 Metolazone [Zaroxolyn] 5 mg PO Q7D 07/06/19 07/06/19 Warfarin [Coumadin] 5 mg PO DAILY 07/06/19 07/06/19 Previous Rx's Medication Instructions Recorded Acetaminophen Tab [Tylenol] 650 mg PO Q4HR PRN tab 02/21/19 Docusate [Colace] 100 mg PO DAILY cap 02/21/19 Allergies Allergy/AdvReac Type Severity Reaction Status Date / Time iron Allergy Rash/Hives Verified 02/10/19 07:49 Sulfa (Sulfonamide Allergy Rash/Hives Verified 02/10/19 07:49 Antibiotics) Tetanus Vaccines and Toxoid Allergy Swelling Verified 02/10/19 07:49 Review of Systems ROS Statement: Those systems with pertinent positive or pertinent negative responses have been documented in the HPI. ROS Other: All systems not noted in ROS Statement are negative. Past Medical History Past Medical History: Atrial Fibrillation, Heart Failure, COPD, Diabetes Mellitus, Deep Vein Thrombosis (DVT), GERD/Reflux, Hyperlipidemia, Hypertension, Osteoarthritis (OA), Pneumonia, Renal Disease, Respiratory Disorder, Rheumatoid Arthritis (RA), Sleep Apnea/CPAP/BIPAP, Thyroid Disorder Additional Past Medical History / Comment(s): Chronic respiratory failure, home O2 at 2L/NC, possible mild pulmonary HTN, JOSR but no longer uses her device, lower extremity edema/redness/cellulitis-legs currently wrapped by son-states blisters on both legs and leakage from L leg, pt states she currently has a decubitus on her coccyx, NIDDM type II, neuropathy bilateral hands/feet, CKD stage IV, pt states she has had "bleeding in the kidneys" in the past, anemia, UTI with sepsis, incontinent of urine and occasionally stool, migraines, gout, hypothyroid, vertigo. History of Any Multi-Drug Resistant Organisms: None Reported Past Surgical History: Heart Catheterization, Hysterectomy, Joint Replacement, Orthopedic Surgery Additional Past Surgical History / Comment(s): Cardiac cath 2017-treated medically, R total knee replacement, L foot heel spur, sanjana cataracts with lens implants, cystoscopy, EGD, colonoscopy. Past Anesthesia/Blood Transfusion Reactions: No Reported Reaction Past Psychological History: No Psychological Hx Reported Smoking Status: Former smoker - Past Family History Mother Family Medical History: Renal Disease Father Family Medical History: Coronary Artery Disease (CAD) General Exam Limitations: no limitations Course Vital Signs 07/06/19 10:54 Temperature 97.6 F Pulse Rate 122 H Respiratory 18 Rate Blood Pressure 122/81 O2 Sat by Pulse 95 Oximetry Medical Decision Making - Lab Data Result diagrams: 07/06/19 11:18 Lab Results 07/06/19 07/06/19 07/06/19 Range/Units 11:18 11:18 11:18 WBC 15.8 H (3.8-10.6) k/uL RBC 3.42 L (3.80-5.40) m/uL Hgb 10.8 L (11.4-16.0) gm/dL Hct 32.6 L (34.0-46.0) % MCV 95.4 (80.0-100.0) fL MCH 31.6 (25.0-35.0) pg MCHC 33.1 (31.0-37.0) g/dL RDW 15.4 (11.5-15.5) % Plt Count 232 (150-450) k/uL Neutrophils % 84 % Lymphocytes % 9 % Monocytes % 3 % Eosinophils % 2 % Basophils % 1 % Neutrophils # 13.3 H (1.3-7.7) k/uL Lymphocytes # 1.5 (1.0-4.8) k/uL Monocytes # 0.5 (0-1.0) k/uL Eosinophils # 0.3 (0-0.7) k/uL Basophils # 0.1 (0-0.2) k/uL Hypochromasia Slight Poikilocytosis Slight PT (9.0-12.0) sec INR (<1.2) APTT (22.0-30.0) sec Plasma Lactic Acid Oscar 1.1 (0.7-2.0) mmol/L Magnesium (1.6-2.3) mg/dL Influenza Type A RNA Not Detected (Not Detectd) Influenza Type B (PCR) Not Detected (Not Detectd) 07/06/19 07/06/19 Range/Units 11:18 11:18 WBC (3.8-10.6) k/uL RBC (3.80-5.40) m/uL Hgb (11.4-16.0) gm/dL Hct (34.0-46.0) % MCV (80.0-100.0) fL MCH (25.0-35.0) pg MCHC (31.0-37.0) g/dL RDW (11.5-15.5) % Plt Count (150-450) k/uL Neutrophils % % Lymphocytes % % Monocytes % % Eosinophils % % Basophils % % Neutrophils # (1.3-7.7) k/uL Lymphocytes # (1.0-4.8) k/uL Monocytes # (0-1.0) k/uL Eosinophils # (0-0.7) k/uL Basophils # (0-0.2) k/uL Hypochromasia Poikilocytosis PT 10.2 (9.0-12.0) sec INR 1.0 (<1.2) APTT 21.7 L (22.0-30.0) sec Plasma Lactic Acid Oscar (0.7-2.0) mmol/L Magnesium 1.9 (1.6-2.3) mg/dL Influenza Type A RNA (Not Detectd) Influenza Type B (PCR) (Not Detectd) Disposition Clinical Impression: Gangrene Disposition: ADMITTED IP TO THIS HOSP Condition: Fair Referrals: Linnea Alonso DO [Primary Care Provider] - 1-2 days Decision Time: 13:13
[2019-07-06 11:34] LABS: Basophils # (A) 0.1 k/uL (0-0.2); Basophils % (A) 1 %; Eosinophils # (A) 0.3 k/uL (0-0.7); Eosinophils % (A) 2 %; HCT 32.6 % (34.0-46.0); HGB 10.8 gm/dL (11.4-16.0); Hypochromasia Slight; Lymphocytes # (A) 1.5 k/uL (1.0-4.8); Lymphocytes % (A) 9 %; MCH 31.6 pg (25.0-35.0); MCHC 33.1 g/dL (31.0-37.0); MCV 95.4 fL (80.0-100.0); Mean Platelet Volume 8.7; Monocytes # (A) 0.5 k/uL (0-1.0); Monocytes % (A) 3 %; Neutrophils # (A) 13.3 k/uL (1.3-7.7); Neutrophils % (A) 84 %; Platelet Count 232 k/uL (150-450); Poikilocytosis Slight; RBC 3.42 m/uL (3.80-5.40); RDW 15.4 % (11.5-15.5); WBC 15.8 k/uL (3.8-10.6)
[2019-07-06 11:54] LABS: Prothrombin Time 10.2 sec (9.0-12.0)
[2019-07-06 11:57] LABS: Partial Thromboplastin Time 21.7 sec (22.0-30.0)
[2019-07-06] MEDS ORDERED: VANCOMYCIN 2,250 MG in SODIUM CHLORIDE 0.9% 500 ML 500 ML IVPB ONE (12:00)
--- NOTE | 2019-07-06 12:14 | XR ---
EXAMINATION TYPE: XR chest 2V DATE OF EXAM: 07/06/2019 COMPARISON: Chest x-ray February 13, 2019 and older x-rays. CT chest March 24, 2018. HISTORY: Hypoxia. TECHNIQUE: Frontal and lateral views of the chest are obtained. FINDINGS: Examination is suboptimal due to patient's large body habitus. There is background chronic parenchymal change without suspicious new focal air space opacity, pleural effusion, or pneumothorax seen. The cardiac silhouette size remains enlarged. New central vascular congestion is present. T he osseous structures are demineralized with bridging osteophytes anteriorly in the mid to lower thor acic spine. New posteriora lower lung opacity could reflect pleural thickening on lateral view. If this persists further investigation with repeat CT exam would be warranted. IMPRESSION: Suboptimal study, cardiomegaly with suspected mild central vascular congestion. Correlat e for CHF exacerbation on background mild underlying emphysematous change.
--- NOTE | 2019-07-06 12:15 | XR ---
EXAMINATION TYPE: XR foot complete LT DATE OF EXAM: 07/06/2019 CLINICAL HISTORY: Multiple nonhealing wounds with pain and swelling. TECHNIQUE: Frontal, lateral, and oblique images of the left foot are obtained. COMPARISON: None FINDINGS: Demineralization is present which is noted to lower radiographic sensitivity. In addition t here is severe diffuse subcutaneous edema and soft tissue swelling also present. No suspicious cortic al destruction or periosteal reaction to suggest acute osteomyelitis. [id number] narrowing thro ughout the joint spaces in the toes. Large inferior and small superior calcaneal spurs are noted. IMPRESSION: As above.
[2019-07-06] MEDS ORDERED: NALOXONE 0.4 MG/ML 1 ML VIAL IV PRN (12:23)
[2019-07-06] MEDS: SODIUM CHLORIDE 0.9% 1,000 ML IV SCH (12:25)
[2019-07-06 14:47] LABS: Calcium 9.3 mg/dL (8.4-10.2); Potassium 3.1 mmol/L (3.5-5.1)
[2019-07-06 15:45] LABS: Amorphous Sediment,Urine Rare /hpf; Appearance,Urine Cloudy (Clear); Bacteria,Urine Occasional /hpf; Bilirubin,Urine Negative (Negative); Blood,Urine Moderate (Negative); Color,Urine Yellow; Glucose,Urine (UA) Negative (Negative); Ketones,Urine Negative (Negative); Leukocyte Esterase,Urine Large (Negative); Mucus,Urine Rare /hpf; Nitrite,Urine Negative (Negative); Protein,Urine Trace (Negative); RBC,Urine 14 /hpf (0-5); Specific Gravity,Urine 1.014 (1.001-1.035); Squamous Epithelial Cell,Urine 5 /hpf (0-4); Urobilinogen,Urine <2.0 mg/dL (<2.0); WBC,Urine >182 /hpf (0-5)
[2019-07-06] MEDS: FUROSEMIDE 40 MG TAB PO SCH ×2 (15:51→21:01)
[2019-07-06 16:49] LABS: Glucose,Whole Blood 160 mg/dL (75-99)
[2019-07-06] MEDS ORDERED: WARFARIN 7.5 MG TAB PO ONE (18:00)
[2019-07-06] MEDS: POTASSIUM CHLORIDE ER 20 MEQ TAB.ER PO SCH ×2 (19:52→20:57)
[2019-07-06] MEDS: IPRATROPIUM-ALBUTEROL 3 ML NEB INHALATION PRN (19:55)
[2019-07-06] MEDS: ATORVASTATIN 40 MG TAB PO SCH (20:57)
[2019-07-06 21:15] LABS: Glucose,Whole Blood 271 mg/dL (75-99)
--- NOTE | 2019-07-06 23:10 | P.CONS ---
History of Present Illness - Reason for Consult Consult date: 07/06/19 heel wounds Requesting physician: Jaylen Alvarenga - Chief Complaint bilateral heel wounds x weeks - History of Present Illness Patient is 79-year-old female past medical he significant for chronic lymphedema both lower extremity COPD this patient who did have a history of lower extremity venous stasis ulcer currently the patient was seen at the wound care center today she was noticed to have some discoloration to the heel area the wound care doctor told the patient need to be go to the hospital right away patient has been complaining of pain to bilateral heel wound area with the patient has for couple of weeks now not sure about what the local care she is getting for it is been complaining of pain mostly to the left heel area more of a dull aching to sharp about 5-6 out of 10 no radiation patient on presentation to the hospital was afebrile he did have white count of 15.8 creatinine 1.27 UA has been positive as well patient did have a x-rays of the foot which shows demineralization diffuse subcutaneous edema patient has been started on vancomycin she has been admitted to hospital infectious disease was consulted for further recommendation regarding local wound care and antibiotic therapy. Review of Systems Positive point has been mentioned in HPI rest of the systems are negative Past Medical History Past Medical History: Atrial Fibrillation, Heart Failure, COPD, Diabetes Mellitus, Deep Vein Thrombosis (DVT), GERD/Reflux, Hyperlipidemia, Hypertension, Osteoarthritis (OA), Pneumonia, Renal Disease, Respiratory Disorder, Rheumatoid Arthritis (RA), Sleep Apnea/CPAP/BIPAP, Thyroid Disorder Additional Past Medical History / Comment(s): Chronic respiratory failure, home O2 at 2L/NC, possible mild pulmonary HTN, JOSR but no longer uses her device, lower extremity edema/redness/cellulitis-legs currently wrapped by son-states blisters on both legs and leakage from L leg, pt states she currently has a decubitus on her coccyx, NIDDM type II, neuropathy bilateral hands/feet, CKD stage IV, pt states she has had "bleeding in the kidneys" in the past, anemia, UTI with sepsis, incontinent of urine and occasionally stool, migraines, gout, hypothyroid, vertigo. History of Any Multi-Drug Resistant Organisms: None Reported Past Surgical History: Heart Catheterization, Hysterectomy, Joint Replacement, Orthopedic Surgery Additional Past Surgical History / Comment(s): Cardiac cath 2017-treated medically, R total knee replacement, L foot heel spur, sanjana cataracts with lens implants, cystoscopy, EGD, colonoscopy. Past Anesthesia/Blood Transfusion Reactions: No Reported Reaction Past Psychological History: No Psychological Hx Reported Additional Psychological History / Comment(s): since 1997. Cared for by son in his home. No travel. experience. No animal exposures. stopped smoking several years ago no history of recreational drug use Smoking Status: Former smoker Past Alcohol Use History: None Reported Additional Past Alcohol Use History / Comment(s): Pt started smoking in 1952 and quit in 2013. Past Drug Use History: None Reported - Past Family History Mother Family Medical History: Renal Disease Father Family Medical History: Coronary Artery Disease (CAD) Medications and Allergies Home Medications Medication Instructions Recorded Confirmed Type Isosorbide Mononitrate ER [Imdur] 30 mg PO DAILY 01/16/17 07/06/19 History Potassium Chloride ER [K-Dur 20] 40 meq PO DAILY 03/22/18 07/06/19 History Ubidecarenone [Co Q-10] 200 mg PO DAILY 03/22/18 07/06/19 History Allopurinol [Zyloprim] 300 mg PO DAILY 02/10/19 07/06/19 History Atorvastatin [Lipitor] 40 mg PO HS 02/10/19 07/06/19 History Liothyronine Sodium [Cytomel] 5 mcg PO DAILY 02/10/19 07/06/19 History traMADol HCL [Ultram] 50 mg PO QID PRN 02/10/19 07/06/19 History Acetaminophen Tab [Tylenol] 650 mg PO Q4HR PRN tab 02/21/19 07/06/19 Rx Docusate [Colace] 100 mg PO DAILY cap 02/21/19 07/06/19 Rx Furosemide [Lasix] 40 mg PO TID 07/06/19 07/06/19 History Ipratropium-Albuterol Nebulize 3 ml INHALATION QID PRN 07/06/19 07/06/19 History [Duoneb 0.5 mg-3 mg/3 ml Soln] Levothyroxine Sodium [Synthroid] 88 mcg PO DAILY 07/06/19 07/06/19 History Meclizine [Antivert] 12.5 mg PO TID 07/06/19 07/06/19 History Metolazone [Zaroxolyn] 5 mg PO Q7D 07/06/19 07/06/19 History Warfarin [Coumadin] 5 mg PO DAILY 07/06/19 07/06/19 History Allergies Allergy/AdvReac Type Severity Reaction Status Date / Time iron Allergy Rash/Hives Verified 02/10/19 07:49 Sulfa (Sulfonamide Allergy Rash/Hives Verified 02/10/19 07:49 Antibiotics) Tetanus Vaccines and Toxoid Allergy Swelling Verified 02/10/19 07:49 Physical Exam Vitals: Vital Signs Temp Pulse Pulse Pulse Resp BP BP 07/06/19 20:17 97.9 F 105 H 22 111/71 07/06/19 20:03 103 H 07/06/19 19:57 07/06/19 19:56 101 H 07/06/19 15:00 97.5 F L 109 H 14 116/70 07/06/19 13:55 93 18 120/82 07/06/19 10:54 97.6 F 122 H 18 122/81 Pulse Ox 07/06/19 20:17 95 07/06/19 20:03 07/06/19 19:57 94 L 07/06/19 19:56 07/06/19 15:00 95 07/06/19 13:55 98 07/06/19 10:54 95 Intake and Output 07/06/19 07/06/19 07/07/19 14:59 22:59 06:59 Intake Total 240 Balance 240 Intake: Oral 240 Other: # Voids 1 Weight 120.656 kg 120.656 kg GENERAL DESCRIPTION: Elderly female lying in bed, no distress. No tachypnea or accessory muscle of respiration use. HEENT: Shows Pallor , no scleral icterus. Oral mucous membrane is dry. NECK: Trachea central, no thyromegaly. LUNGS: Unlabored breathing. Clear to auscultation anteriorly. No wheeze or crackle. HEART: S1, S2, regular rate and rhythm. ABDOMEN: Soft, no tenderness , guarding or rigidity EXTREMITIES: Bilateral lower extremity lymphedema with slight more swelling to the left leg patient did have bilateral heel pressure ulcer more marked on the left heel with slough tissue to both the wound no foul-smelling drainage sKIN: No rash, no masses palpable. NEUROLOGICAL: The patient is awake, alert, oriented x3, mood and affect normal. Results CBC & Chem 7: 07/06/19 11:18 07/06/19 11:18 Labs: Abnormal Lab Results - Last 24 Hours (Table) 07/06/19 07/06/19 07/06/19 Range/Units 11:18 11:18 11:18 WBC 15.8 H (3.8-10.6) k/uL RBC 3.42 L (3.80-5.40) m/uL Hgb 10.8 L (11.4-16.0) gm/dL Hct 32.6 L (34.0-46.0) % Neutrophils # 13.3 H (1.3-7.7) k/uL APTT 21.7 L (22.0-30.0) sec Potassium 3.1 L (3.5-5.1) mmol/L Carbon Dioxide 36 H (22-30) mmol/L BUN 56 H (7-17) mg/dL Creatinine 1.27 H (0.52-1.04) mg/dL Glucose 172 H (74-99) mg/dL POC Glucose (mg/dL) (75-99) mg/dL Urine Appearance (Clear) Urine Protein (Negative) Urine Blood (Negative) Ur Leukocyte Esterase (Negative) Urine RBC (0-5) /hpf Urine WBC (0-5) /hpf Urine WBC Clumps (None) /hpf Ur Squamous Epith Cells (0-4) /hpf Amorphous Sediment (None) /hpf Urine Bacteria (None) /hpf Urine Mucus (None) /hpf 07/06/19 07/06/19 07/06/19 Range/Units 15:20 16:47 21:13 WBC (3.8-10.6) k/uL RBC (3.80-5.40) m/uL Hgb (11.4-16.0) gm/dL Hct (34.0-46.0) % Neutrophils # (1.3-7.7) k/uL APTT (22.0-30.0) sec Potassium (3.5-5.1) mmol/L Carbon Dioxide (22-30) mmol/L BUN (7-17) mg/dL Creatinine (0.52-1.04) mg/dL Glucose (74-99) mg/dL POC Glucose (mg/dL) 160 H 271 H (75-99) mg/dL Urine Appearance Cloudy H (Clear) Urine Protein Trace H (Negative) Urine Blood Moderate H (Negative) Ur Leukocyte Esterase Large H (Negative) Urine RBC 14 H (0-5) /hpf Urine WBC >182 H (0-5) /hpf Urine WBC Clumps Occasional H (None) /hpf Ur Squamous Epith Cells 5 H (0-4) /hpf Amorphous Sediment Rare H (None) /hpf Urine Bacteria Occasional H (None) /hpf Urine Mucus Rare H (None) /hpf Microbiology - Last 24 Hours (Table) 07/06/19 11:18 Anaerobic Culture - Preliminary Foot - Left 07/06/19 11:18 Wound Culture - Preliminary Foot - Left Assessment and Plan Assessment: 1-patient with bilateral heel pressure ulcer stage III (the right wound base did have significant slough tissue with some surrounding cellulitis patient with left leg likely from gram-positive skin ayesha underlying gram-negative infection and antibiotics noted. 2-positive UA but no urinary symptoms possible asymptomatic bacteriuria (1) Pressure injury of both heels, stage 3 Current Visit: Yes Status: Acute Code(s): L89.613 - PRESSURE ULCER OF RIGHT HEEL, STAGE 3; L89.623 - PRESSURE ULCER OF LEFT HEEL, STAGE 3 SNOMED Code(s): 717955831 (2) Cellulitis of left lower extremity Current Visit: No Status: Acute Code(s): L03.116 - CELLULITIS OF LEFT LOWER LIMB SNOMED Code(s): 790843917 Plan: 1-vancomycin pharmacy to dose her with a target trough of 15 while watching her kidney function and Vanco trough closely. 2-local wound care with the meta honey followed by moist dressing 3-bilateral heel protector 4-Myles wrap to the leg from just above the toe to below the knee We will follow on clinical condition and cultures to further adjust medication if needed Thank you for this consultation we will follow the patient along with you Time with Patient: Greater than 30
[2019-07-07 03:29] LABS: Glucose,Whole Blood 167 mg/dL (75-99)
[2019-07-07] MEDS: LEVOTHYROXINE 88 MCG TAB PO SCH (05:44)
[2019-07-07 07:16] LABS: Glucose,Whole Blood 150 mg/dL (75-99)
[2019-07-07] MEDS: ISOSORBIDE MONONITRATE ER 30 MG TAB.ER.24H PO SCH (08:19)
[2019-07-07] MEDS: FUROSEMIDE 40 MG TAB PO SCH ×3 (08:19→21:56)
[2019-07-07 08:48] LABS: Basophils # (A) 0.1 k/uL (0-0.2); Basophils % (A) 1 %; Eosinophils # (A) 0.2 k/uL (0-0.7); Eosinophils % (A) 2 %; HCT 33.5 % (34.0-46.0); HGB 10.3 gm/dL (11.4-16.0); Hypochromasia Slight; Lymphocytes # (A) 1.1 k/uL (1.0-4.8); Lymphocytes % (A) 10 %; MCH 30.3 pg (25.0-35.0); MCHC 30.8 g/dL (31.0-37.0); MCV 98.4 fL (80.0-100.0); Macrocytosis Slight; Mean Platelet Volume 8.9; Monocytes # (A) 0.4 k/uL (0-1.0); Monocytes % (A) 4 %; Neutrophils % (A) 84 %; Platelet Count 230 k/uL (150-450); RBC 3.41 m/uL (3.80-5.40); RDW 15.4 % (11.5-15.5); WBC 11.9 k/uL (3.8-10.6)
[2019-07-07 08:53] LABS: INR 1.1 (<1.2); Prothrombin Time 10.9 sec (9.0-12.0)
[2019-07-07 08:58] LABS: Albumin 3.4 g/dL (3.5-5.0); Calcium 9.1 mg/dL (8.4-10.2); Potassium 3.3 mmol/L (3.5-5.1); Total Bilirubin 0.8 mg/dL (0.2-1.3); Total Protein 6.1 g/dL (6.3-8.2)
[2019-07-07] MEDS ORDERED: WARFARIN 5 MG TAB PO SCH (09:00)
[2019-07-07] MEDS: MORPHINE SULFATE 4 MG/ML SYRINGE IV PRN ×2 (09:44→15:31)
[2019-07-07] MEDS ORDERED: VANCOMYCIN 2,000 MG in SODIUM CHLORIDE 0.9% 500 ML 500 ML IVPB SCH (12:00)
[2019-07-07 12:16] LABS: Glucose,Whole Blood 189 mg/dL (75-99)
[2019-07-07] MEDS: INSULIN ASPART (NovoLOG) 100 UNIT/ML VIAL SQ SCH ×3 (12:44→21:57)
[2019-07-07] MEDS: SODIUM CHLORIDE 0.9% 1,000 ML IV SCH (12:49)
[2019-07-07 16:57] LABS: Glucose,Whole Blood 181 mg/dL (75-99)
--- NOTE | 2019-07-07 17:03 | PN ---
PROGRESS NOTE DATE OF SERVICE: 07/07/2019 REASON FOR FOLLOWUP: Bilateral heel pressure ulcers with secondary cellulitis. INTERVAL HISTORY: The patient is currently afebrile. The patient is breathing comfortably. Denies having any chest pain or any cough. No nausea, vomiting or any worsening pain to bilateral heel wound areas. PHYSICAL EXAMINATION: Blood pressure 113/61 with a pulse of 62, temperature 97.7. She is 91% on 2 L nasal cannula. General description is an elderly female lying in bed in no distress. RESPIRATORY SYSTEM: Unlabored breathing. Clear to auscultation anteriorly. HEART: S1, S2. Regular rate and rhythm. ABDOMEN: Soft. No tenderness. Bilateral heel wounds have slough tissue. No surrounding redness or drainage. LABS: White count is down to 11.9. Creatinine is 1.24. Wound cultures are currently pending. DIAGNOSTIC IMPRESSION AND PLAN: Patient with bilateral heel stage III pressure ulcers, left greater than the right with secondary cellulitis. Local care to continue with Medihoney followed by moist dressing. Keep the area off pressure. Antibiotic in the form of vancomycin while waiting for the culture to finalize. Continue with supportive care. MMODL / IJN: [id number] /
[2019-07-07] MEDS ORDERED: WARFARIN 7.5 MG TAB PO ONE (18:00)
[2019-07-07] MEDS: IPRATROPIUM-ALBUTEROL 3 ML NEB INHALATION PRN (19:42)
[2019-07-07 20:02] LABS: Glucose,Whole Blood 175 mg/dL (75-99)
[2019-07-07] MEDS: ATORVASTATIN 40 MG TAB PO SCH (21:56)
--- NOTE | 2019-07-07 22:12 | P.HPIM ---
History of Present Illness H&P Date: 07/07/19 Tamar Dominguez is an 79-year-old female with PMH of lymphedema, COPD, hx DVT who presented to the ED after being seen at the wound center and was recommended to present to the ED for worsening wound. Pt was noted to have increased pain and drainage to the bilateral heels left worse then right. Pt states her heels have been very painful for a few weeks. She states she has been staying off her feet. On presentation pt was afebrile, WBC 15.8 creatinine 1.27. XR foot showed demineralization with diffuse subcutaneous edema. Pt was been started on vancomycin and admitted to medicine with ID consult. Review of Systems All systems: negative Constitutional: Reports as per HPI, Reports weakness, Denies chills, Denies fever Eyes: denies blurred vision, denies pain Ears, nose, mouth and throat: Denies headache, Denies sore throat Cardiovascular: Denies chest pain, Denies shortness of breath Respiratory: Denies cough Gastrointestinal: Denies abdominal pain, Denies diarrhea, Denies nausea, Denies vomiting Genitourinary: Denies dysuria, Denies hematuria Musculoskeletal: Reports as per HPI, Reports gait dysfunction, Reports leg numbness/tingling, Denies myalgias Integumentary: Denies pruritus, Denies rash Neurological: Denies numbness, Denies weakness Psychiatric: Denies anxiety, Denies depression Endocrine: Denies fatigue, Denies weight change Past Medical History Past Medical History: Atrial Fibrillation, Heart Failure, COPD, Diabetes Mellitus, Deep Vein Thrombosis (DVT), GERD/Reflux, Hyperlipidemia, Hypertension, Osteoarthritis (OA), Pneumonia, Renal Disease, Respiratory Disorder, Rheumatoid Arthritis (RA), Sleep Apnea/CPAP/BIPAP, Thyroid Disorder Additional Past Medical History / Comment(s): Chronic respiratory failure, home O2 at 2L/NC, possible mild pulmonary HTN, JOSR but no longer uses her device, lower extremity edema/redness/cellulitis-legs currently wrapped by son-states blisters on both legs and leakage from L leg, pt states she currently has a decubitus on her coccyx, NIDDM type II, neuropathy bilateral hands/feet, CKD stage IV, pt states she has had "bleeding in the kidneys" in the past, anemia, UTI with sepsis, incontinent of urine and occasionally stool, migraines, gout, hypothyroid, vertigo. History of Any Multi-Drug Resistant Organisms: None Reported Past Surgical History: Heart Catheterization, Hysterectomy, Joint Replacement, Orthopedic Surgery Additional Past Surgical History / Comment(s): Cardiac cath 2017-treated medically, R total knee replacement, L foot heel spur, sanjana cataracts with lens implants, cystoscopy, EGD, colonoscopy. Past Anesthesia/Blood Transfusion Reactions: No Reported Reaction Past Psychological History: No Psychological Hx Reported Additional Psychological History / Comment(s): since 1997. Cared for by son in his home. No travel. experience. No animal exposures. stopped smoking several years ago no history of recreational drug use Smoking Status: Former smoker Past Alcohol Use History: None Reported Additional Past Alcohol Use History / Comment(s): Pt started smoking in 1952 and quit in 2013. Past Drug Use History: None Reported - Past Family History Mother Family Medical History: Renal Disease Father Family Medical History: Coronary Artery Disease (CAD) Medications and Allergies Home Medications Medication Instructions Recorded Confirmed Type Isosorbide Mononitrate ER [Imdur] 30 mg PO DAILY 01/16/17 07/06/19 History Potassium Chloride ER [K-Dur 20] 40 meq PO DAILY 03/22/18 07/06/19 History Ubidecarenone [Co Q-10] 200 mg PO DAILY 03/22/18 07/06/19 History Allopurinol [Zyloprim] 300 mg PO DAILY 02/10/19 07/06/19 History Atorvastatin [Lipitor] 40 mg PO HS 02/10/19 07/06/19 History Liothyronine Sodium [Cytomel] 5 mcg PO DAILY 02/10/19 07/06/19 History traMADol HCL [Ultram] 50 mg PO QID PRN 02/10/19 07/06/19 History Acetaminophen Tab [Tylenol] 650 mg PO Q4HR PRN tab 02/21/19 07/06/19 Rx Docusate [Colace] 100 mg PO DAILY cap 02/21/19 07/06/19 Rx Furosemide [Lasix] 40 mg PO TID 07/06/19 07/06/19 History Ipratropium-Albuterol Nebulize 3 ml INHALATION QID PRN 07/06/19 07/06/19 History [Duoneb 0.5 mg-3 mg/3 ml Soln] Levothyroxine Sodium [Synthroid] 88 mcg PO DAILY 07/06/19 07/06/19 History Meclizine [Antivert] 12.5 mg PO TID 07/06/19 07/06/19 History Metolazone [Zaroxolyn] 5 mg PO Q7D 07/06/19 07/06/19 History Warfarin [Coumadin] 5 mg PO DAILY 07/06/19 07/06/19 History Allergies Allergy/AdvReac Type Severity Reaction Status Date / Time iron Allergy Rash/Hives Verified 02/10/19 07:49 Sulfa (Sulfonamide Allergy Rash/Hives Verified 02/10/19 07:49 Antibiotics) Tetanus Vaccines and Toxoid Allergy Swelling Verified 02/10/19 07:49 Physical Exam Vitals: Vital Signs Temp Pulse Pulse Resp BP Pulse Ox 07/07/19 19:55 125 H 07/07/19 19:46 96.6 F L 82 106/64 07/07/19 19:43 133 H 96 07/07/19 15:00 97.7 F 62 18 113/61 91 L 07/07/19 05:35 98.3 F 78 22 117/69 95 Intake and Output 07/07/19 07/07/19 07/07/19 06:59 14:59 22:59 Intake Total 160 Output Total 1100 Balance -1100 160 Intake: Intake, IV Titration 160 Amount Sodium Chloride 0.9% 1, 160 000 ml @ 20 mls/hr IV . Q24H ANATOLY Rx#:[id number] Output: Urine 1100 Other: # Bowel Movements 1 Weight 120.656 kg General: well nourished obese female in [facility]. Vitals reviewed Eyes: PERRL, EOMI, conjunctiva normal HENT: normocephalic, mucus membranes moist Neck: supple, no JVD Lungs: normal respiratory effort, no wheezes or rales CV: Regular rate and rhythm, no murmur. Peripheral pulses 2+. Bilateral LE with 4+ edema Abdomen: soft, nondistended, no organomegaly Lymph: no cervical or axillary LAD Skin: bilateral feet edematous, venous stasis changes. L heel with 2x3 cm ulcer with necrotic central eschar. R heel with 1 cm ulcer with central granulation tissue Neuro: A&Ox3, normal mood and affect Results CBC & Chem 7: 07/07/19 07:03 07/07/19 07:03 Labs: Abnormal Lab Results - Last 24 Hours (Table) 07/07/19 07/07/19 07/07/19 Range/Units 03:28 07:03 07:03 WBC 11.9 H (3.8-10.6) k/uL RBC 3.41 L (3.80-5.40) m/uL Hgb 10.3 L (11.4-16.0) gm/dL Hct 33.5 L (34.0-46.0) % MCHC 30.8 L (31.0-37.0) g/dL Neutrophils # 10.0 H (1.3-7.7) k/uL Potassium 3.3 L (3.5-5.1) mmol/L Carbon Dioxide 39 H (22-30) mmol/L BUN 47 H (7-17) mg/dL Creatinine 1.24 H (0.52-1.04) mg/dL Glucose 128 H (74-99) mg/dL POC Glucose (mg/dL) 167 H (75-99) mg/dL Total Protein 6.1 L (6.3-8.2) g/dL Albumin 3.4 L (3.5-5.0) g/dL 07/07/19 07/07/19 07/07/19 Range/Units 07:14 12:12 16:56 WBC (3.8-10.6) k/uL RBC (3.80-5.40) m/uL Hgb (11.4-16.0) gm/dL Hct (34.0-46.0) % MCHC (31.0-37.0) g/dL Neutrophils # (1.3-7.7) k/uL Potassium (3.5-5.1) mmol/L Carbon Dioxide (22-30) mmol/L BUN (7-17) mg/dL Creatinine (0.52-1.04) mg/dL Glucose (74-99) mg/dL POC Glucose (mg/dL) 150 H 189 H 181 H (75-99) mg/dL Total Protein (6.3-8.2) g/dL Albumin (3.5-5.0) g/dL 07/07/19 Range/Units 19:53 WBC (3.8-10.6) k/uL RBC (3.80-5.40) m/uL Hgb (11.4-16.0) gm/dL Hct (34.0-46.0) % MCHC (31.0-37.0) g/dL Neutrophils # (1.3-7.7) k/uL Potassium (3.5-5.1) mmol/L Carbon Dioxide (22-30) mmol/L BUN (7-17) mg/dL Creatinine (0.52-1.04) mg/dL Glucose (74-99) mg/dL POC Glucose (mg/dL) 175 H (75-99) mg/dL Total Protein (6.3-8.2) g/dL Albumin (3.5-5.0) g/dL Microbiology - Last 24 Hours (Table) 07/06/19 11:18 Blood Culture - Preliminary Blood No Growth after 24 hours 07/06/19 11:18 Gram Stain - Preliminary Foot - Left Wound Culture - Preliminary 07/06/19 11:18 Anaerobic Culture - Preliminary Foot - Left Thrombosis Risk Factor Assmnt - Choose All That Apply Each Factor Represents 1 point: Abnormal pulmonary function (COPD), Obesity (BMI >25) Each Risk Factor Represents 3 Points: Age 75 years or older Thrombosis Risk Factor Assessment Total Risk Factor Score: 5 Thrombosis Risk Factor Assessment Level: High Risk Assessment and Plan (1) Chronic diastolic CHF (congestive heart failure), NYHA class 3 Current Visit: Yes Status: Acute Code(s): I50.32 - CHRONIC DIASTOLIC (CONGESTIVE) HEART FAILURE SNOMED Code(s): 068805528 (2) History of DVT (deep vein thrombosis) Current Visit: Yes Status: Acute Code(s): Z86.718 - PERSONAL HISTORY OF OTHER VENOUS THROMBOSIS AND EMBOLISM SNOMED Code(s): 578260250 (3) Paroxysmal A-fib Current Visit: Yes Status: Acute Code(s): I48.0 - PAROXYSMAL ATRIAL FIBRILLATION SNOMED Code(s): 909509949 (4) Gangrene Current Visit: Yes Status: Acute Code(s): I96 - GANGRENE, NOT ELSEWHERE CLASSIFIED SNOMED Code(s): 203505170 (5) Pressure injury of both heels, stage 3 Current Visit: Yes Status: Acute Code(s): L89.613 - PRESSURE ULCER OF RIGHT HEEL, STAGE 3; L89.623 - PRESSURE ULCER OF LEFT HEEL, STAGE 3 SNOMED Code(s): 377567511 (6) Cellulitis of left lower extremity Current Visit: No Status: Acute Code(s): L03.116 - CELLULITIS OF LEFT LOWER LIMB SNOMED Code(s): 291395752 (7) Diabetes Current Visit: No Status: Acute Code(s): E11.9 - TYPE 2 DIABETES MELLITUS WITHOUT COMPLICATIONS SNOMED Code(s): 07515035 Plan: 1. Stage 3 pressure ulcer of L heel. Stage 2 pressure ulcer of R heel. ID consulted. Continue broad spectrum antibiotics. Local wound care 2. Chronic diastolic CHF. Continue home lasix 3. Paroxysmal A fib. Pt in sinus rhythm currently. Continue coumadin 4. COPD. Continue duonebs qid prn 5. T2DM. Not on medication at home. Accucheck, sliding scale
[2019-07-08] MEDS: LEVOTHYROXINE 88 MCG TAB PO SCH (06:09)
[2019-07-08 07:01] LABS: Glucose,Whole Blood 179 mg/dL (75-99)
[2019-07-08 09:01] LABS: INR 1.1 (<1.2)
[2019-07-08] MEDS: INSULIN ASPART (NovoLOG) 100 UNIT/ML VIAL SQ SCH ×4 (09:03→21:31)
[2019-07-08] MEDS: ISOSORBIDE MONONITRATE ER 30 MG TAB.ER.24H PO SCH (09:03)
[2019-07-08] MEDS: FUROSEMIDE 40 MG TAB PO SCH ×3 (09:03→21:30)
[2019-07-08] MEDS: POTASSIUM CHLORIDE ER 20 MEQ TAB.ER PO SCH (09:03)
[2019-07-08 11:39] LABS: Glucose,Whole Blood 155 mg/dL (75-99)
[2019-07-08] MEDS: SODIUM CHLORIDE 0.9% 1,000 ML IV SCH (13:32)
--- NOTE | 2019-07-08 13:51 | PN ---
PROGRESS NOTE DATE OF SERVICE: 07/08/2019 REASON FOR FOLLOWUP: Bilateral heel pressure ulcer with secondary cellulitis. INTERVAL HISTORY: The patient is currently afebrile. The patient is breathing comfortably. Denies having any chest pain or any cough. No nausea, no vomiting. No abdominal pain or any diarrhea. PHYSICAL EXAMINATION: Blood pressure is 113/67 with a pulse of 107, temperature 98. She is 94% on 2 L nasal cannula. General description is an elderly female lying in bed in no distress. RESPIRATORY SYSTEM: Unlabored breathing, clear to auscultation anteriorly. HEART: S1, S2. Regular rate and rhythm. ABDOMEN: Soft. No tenderness. Bilateral heels were currently dressed up, no obvious drainage on the dressing. LABS: No new labs have been obtained today. Culture has been so far . DIAGNOSTIC IMPRESSION AND PLAN: Patient with bilateral heel pressure ulcer with secondary cellulitis, especially the left heel with concern for possible osteo. We will obtain a bone scan left heel to make sure no evidence of any bony changes as the culture has been negative for methicillin- resistant Staphylococcus aureus. Antibiotic vancomycin will be discontinued. We will start the patient on cefazolin 2 grams q.8. Local care to continue with Medihoney followed by moist dressing. Continue supportive care. MMODL / IJN: [id number] /
[2019-07-08] MEDS ORDERED: Potassium Replacement Protocol 1 EACH MISC MISCELLANE PRN (15:55)
--- NOTE | 2019-07-08 15:57 | P.PN ---
Subjective Progress Note Date: 07/08/19 Tamar Dominguez is an 79-year-old female with PMH of lymphedema, COPD, hx DVT who presented to the ED after being seen at the wound center and was recommended to present to the ED for worsening wound. Pt was noted to have increased pain and drainage to the bilateral heels left worse then right. Pt states her heels have been very painful for a few weeks. She states she has been staying off her feet. On presentation pt was afebrile, WBC 15.8 creatinine 1.27. XR foot showed demineralization with diffuse subcutaneous edema. Pt was been started on vancomycin and admitted to medicine with ID consult. 07/08/2019 15 on IV antibiotics/Wound Care as per infectious disease. No MRSA identified per wound cultures. Bone scan ordered. Afebrile. Denies chest pain, palpitations or shortness of breath. Denies nausea vomiting or diarrhea. Denies abdominal pain. Blood sugars controlled. INR 1.1. Objective - Vital Signs Vital signs: Vital Signs Temp 98.0 F 07/08/19 05:00 Pulse 107 H 07/08/19 05:00 Resp 20 07/08/19 05:00 BP 113/67 07/08/19 05:00 Pulse Ox 94 L 07/08/19 05:00 Intake & Output 07/07/19 07/08/19 07/08/19 18:59 06:59 18:59 Intake Total 160 575 Output Total 200 Balance 160 375 Weight 120.656 kg Intake: Intake, IV Titration 160 Amount Sodium Chloride 0.9% 1, 160 000 ml @ 20 mls/hr IV . Q24H ANATOLY Rx#:[id number] Oral 575 Output: Urine 200 Other: # Voids 1 # Bowel Movements 0 - Exam General: well nourished obese female in [place]. Eyes: PERRL, EOMI, conjunctiva normal HENT: normocephalic, mucus membranes moist Neck: supple, no JVD Lungs: normal respiratory effort, no wheezes or rales CV: Regular rate and rhythm, no murmur. Peripheral pulses 2+. Bilateral LE with 4+ edema Abdomen: soft, nondistended, no organomegaly Lymph: no cervical or axillary LAD Skin: Bilateral lower extremities Myles wrapped, clean dry and intact, toes warm Neuro: A&Ox3, normal mood and affect Microbiology 07/06/19 11:18 Blood Blood Culture - Preliminary No Growth after 48 hours 07/06/19 11:18 Foot - Left Gram Stain - Final 07/06/19 11:18 Foot - Left Wound Culture - Final 07/06/19 11:18 Foot - Left Anaerobic Culture - Preliminary - Labs CBC & Chem 7: 07/07/19 07:03 07/07/19 07:03 Labs: Abnormal Lab Results - Last 24 Hours (Table) 07/07/19 07/07/19 07/08/19 Range/Units 16:56 19:53 06:58 POC Glucose (mg/dL) 181 H 175 H 179 H (75-99) mg/dL 07/08/19 Range/Units 11:35 POC Glucose (mg/dL) 155 H (75-99) mg/dL Microbiology - Last 24 Hours (Table) 07/06/19 11:18 Blood Culture - Preliminary Blood No Growth after 48 hours 07/06/19 11:18 Gram Stain - Final Foot - Left Wound Culture - Final Assessment and Plan Assessment: (1) Pressure injury of both heels, stage 3 Current Visit: Yes Status: Acute Code(s): L89.613 - PRESSURE ULCER OF RIGHT HEEL, STAGE 3; L89.623 - PRESSURE ULCER OF LEFT HEEL, STAGE 3 SNOMED Code(s): 159000086 (2) History of DVT (deep vein thrombosis) Current Visit: Yes Status: Acute Code(s): Z86.718 - PERSONAL HISTORY OF OTHER VENOUS THROMBOSIS AND EMBOLISM SNOMED Code(s): 530007333 (3) Paroxysmal A-fib Current Visit: Yes Status: Acute Code(s): I48.0 - PAROXYSMAL ATRIAL FIBRILLATION SNOMED Code(s): 780731162 (4) Gangrene Current Visit: Yes Status: Acute Code(s): I96 - GANGRENE, NOT ELSEWHERE CLASSIFIED SNOMED Code(s): 141402407 (5) Chronic diastolic CHF (congestive heart failure), NYHA class 3 Current Visit: Yes Status: Acute Code(s): I50.32 - CHRONIC DIASTOLIC (CONGESTIVE) HEART FAILURE SNOMED Code(s): 006573875 (6) Cellulitis of left lower extremity Current Visit: No Status: Acute Code(s): L03.116 - CELLULITIS OF LEFT LOWER LIMB SNOMED Code(s): 888261600 (7) Diabetes Current Visit: No Status: Acute Code(s): E11.9 - TYPE 2 DIABETES MELLITUS WITHOUT COMPLICATIONS SNOMED Code(s): 66753225 Plan: Continue on current medication regime ,monitoring and symptomatic treatment. Bone scan pending. Maintain IV antibiotics/Wound Care as per infectious disease. Close monitoring of Accu-Cheks. Discussed with patient, initiating Amaryl at discharge. Hemoglobin A1c pending. Continue nebulized bronchodilators. The impression and plan of care has been dictated as directed. : I performed a history and examination of this patient, discussed the same with the dictator. I agree with the dictator's note ,documented as a scribe. Any additional findings or plans will be noted.
[2019-07-08] MEDS: IPRATROPIUM-ALBUTEROL 3 ML NEB INHALATION PRN ×3 (16:49→23:58)
[2019-07-08 17:33] LABS: Glucose,Whole Blood 171 mg/dL (75-99)
[2019-07-08] MEDS ORDERED: WARFARIN 10 MG TAB PO ONE (18:00)
[2019-07-08] MEDS ORDERED: BENZOCAINE/MENTHOL LOZENG 1 EACH LOZENGE MUCOUS MEM PRN (18:22)
[2019-07-08] MEDS: METOPROLOL TARTRATE 50 MG TAB PO SCH (18:35)
[2019-07-08 20:26] LABS: Glucose,Whole Blood 159 mg/dL (75-99)
[2019-07-08] MEDS: ATORVASTATIN 40 MG TAB PO SCH (21:30)
[2019-07-08] MEDS: MORPHINE SULFATE 4 MG/ML SYRINGE IV PRN (21:36)
[2019-07-08 23:48] LABS: Hemoglobin A1C 6.1 % (4.0-6.0)
[2019-07-09] MEDS ORDERED: FUROSEMIDE 10 MG/ML 4 ML VIAL IV STA (00:40)
[2019-07-09] MEDS: LEVOTHYROXINE 88 MCG TAB PO SCH (05:29)
--- NOTE | 2019-07-09 06:36 | XR ---
EXAMINATION TYPE: XR chest 1V portable DATE OF EXAM: 07/09/2019 HISTORY: CHF. REFERENCE: Previous study dated 07/06/2019. FINDINGS: There is multichamber cardiac enlargement. There is shift of the trachea towards the right. There is prominence of the right paratracheal soft tissues. There is a worsening infiltrate in the p eriphery of the right midlung. There is bibasilar consolidation. There are small, bilateral pleural e ffusions. IMPRESSION: 1. CONTINUING TRACHEAL DEVIATION TOWARDS THE RIGHT. UNDERLYING MASS IS SUSPECTED. 2. PROMINENCE OF THE RIGHT PARATRACHEAL SOFT TISSUES. 3. WORSENING OPACITY IN THE RIGHT MIDLUNG. 4. MULTICHAMBER CARDIAC ENLARGEMENT. 5. BILATERAL EFFUSIONS, GREATER ON THE LEFT RIGHT.
[2019-07-09 07:02] LABS: Glucose,Whole Blood 168 mg/dL (75-99)
[2019-07-09] MEDS: FUROSEMIDE 40 MG TAB PO SCH ×3 (07:57→21:42)
[2019-07-09] MEDS: METOPROLOL TARTRATE 50 MG TAB PO SCH ×2 (07:57→21:42)
[2019-07-09] MEDS: INSULIN ASPART (NovoLOG) 100 UNIT/ML VIAL SQ SCH ×4 (07:58→21:43)
[2019-07-09] MEDS: ISOSORBIDE MONONITRATE ER 30 MG TAB.ER.24H PO SCH (07:58)
[2019-07-09] MEDS: POTASSIUM CHLORIDE ER 20 MEQ TAB.ER PO SCH (07:58)
[2019-07-09 08:53] LABS: INR 1.3 (<1.2); Prothrombin Time 13.2 sec (9.0-12.0)
--- NOTE | 2019-07-09 11:42 | NM ---
EXAMINATION TYPE: NM bone 3 phase DATE OF EXAM: 07/09/2019 COMPARISON: NONE HISTORY: Bilateral heel lungs Triple phase bone scintigraphy was performed following the injection of 22.5 mCi Tc 99m MDP. Immedia te images and 3.5 hours post injection images acquired. FINDINGS: Flow images show minimal increased flow to the left foot. Pool images show diffuse increased uptake o n the left and more activity in the posterior aspect of the right foot. Delayed static images show in creased uptake in the right calcaneus and increased uptake in the left forefoot. There is some increa sed uptake in the right great toe. IMPRESSION: UPTAKE MOST CONSISTENT WITH DEGENERATIVE CHANGE AND SOFT TISSUE INFLAMMATION. THERE IS NO DISCRETE EV IDENCE OF OSTEOMYELITIS.
[2019-07-09 11:55] LABS: Glucose,Whole Blood 155 mg/dL (75-99)
[2019-07-09 17:04] LABS: Glucose,Whole Blood 139 mg/dL (75-99)
--- NOTE | 2019-07-09 17:07 | CT ---
EXAMINATION TYPE: CT chest wo/w con DATE OF EXAM: 07/09/2019 COMPARISON: 03/24/2018 HISTORY: Paratracheal mass. CT DLP: 1282.7 mGycm Automated exposure control for dose reduction was used. CONTRAST: Performed with IV Contrast, patient injected with 100 mL of Isovue 300. Multiple axial sections were obtained without and subsequently with intravenous contrast. There are moderate bilateral pleural effusions. There is basilar atelectasis bilaterally. There is re trosternal goiter. I see no discrete thyroid mass. There is no mediastinal adenopathy. Thoracic aorta is atheromatous. There is no aneurysm or dissection. There are no hilar masses. There is no pericard ial effusion. There is elevated right diaphragm. There is some spurring in the thoracic spine. Heart is borderline enlarged. There is 3 cm cortical cyst upper pole left kidney. There is rounded 3 cm low -density left adrenal mass suggestive of benign disease. IMPRESSION: Heart is increased in size compared to old exam. There is new bilateral pleural effusion and basilar atelectasis compared to old exam that is suggestive of congestive heart failure. No suspicious medias tinal mass. There is retrosternal goiter. Atheromatous aorta.
[2019-07-09 17:29] LABS: Basophils # (A) 0.1 k/uL (0-0.2); Basophils % (A) 1 %; Eosinophils # (A) 0.2 k/uL (0-0.7); Eosinophils % (A) 2 %; HCT 32.5 % (34.0-46.0); HGB 9.9 gm/dL (11.4-16.0); Hypochromasia Moderate; Lymphocytes # (A) 1.1 k/uL (1.0-4.8); Lymphocytes % (A) 12 %; MCH 30.4 pg (25.0-35.0); MCHC 30.4 g/dL (31.0-37.0); MCV 99.9 fL (80.0-100.0); Macrocytosis Slight; Mean Platelet Volume 9.5; Monocytes # (A) 0.5 k/uL (0-1.0); Monocytes % (A) 5 %; Neutrophils # (A) 7.8 k/uL (1.3-7.7); Neutrophils % (A) 79 %; Platelet Count 207 k/uL (150-450); RBC 3.25 m/uL (3.80-5.40); RDW 15.4 % (11.5-15.5); WBC 9.9 k/uL (3.8-10.6)
[2019-07-09 17:38] LABS: Ammonia <9 umol/L (<30); Lactic Acid, Venous 0.7 mmol/L (0.7-2.0)
[2019-07-09 17:41] LABS: Albumin 3.3 g/dL (3.5-5.0); Total Bilirubin 0.5 mg/dL (0.2-1.3)
[2019-07-09] MEDS: methylPREDNISolone SOD SUCCI 40 MG/ML 1 ML VIAL IV SCH ×2 (17:44→23:39)
[2019-07-09] MEDS ORDERED: WARFARIN 10 MG TAB PO ONE (18:00)
[2019-07-09 19:03] LABS: VBG PH 7.33 (7.31-7.41)
[2019-07-09] MEDS: IPRATROPIUM-ALBUTEROL 3 ML NEB INHALATION SCH ×2 (20:17→23:52)
[2019-07-09 20:34] LABS: Glucose,Whole Blood 180 mg/dL (75-99)
[2019-07-09] MEDS: ATORVASTATIN 40 MG TAB PO SCH (21:42)
[2019-07-10] MEDS: IPRATROPIUM-ALBUTEROL 3 ML NEB INHALATION SCH ×6 (04:23→23:31)
[2019-07-10] MEDS: LEVOTHYROXINE 88 MCG TAB PO SCH (05:17)
[2019-07-10] MEDS: MORPHINE SULFATE 4 MG/ML SYRINGE IV PRN (05:17)
[2019-07-10 05:57] LABS: Basophils % (A) 0 %; Eosinophils % (A) 0 %; HCT 36.5 % (34.0-46.0); HGB 11.2 gm/dL (11.4-16.0); Hypochromasia Moderate; Lymphocytes # (A) 0.7 k/uL (1.0-4.8); Lymphocytes % (A) 5 %; MCH 30.5 pg (25.0-35.0); MCHC 30.7 g/dL (31.0-37.0); MCV 99.4 fL (80.0-100.0); Macrocytosis Slight; Mean Platelet Volume 8.7; Monocytes # (A) 0.2 k/uL (0-1.0); Monocytes % (A) 1 %; Neutrophils # (A) 13.2 k/uL (1.3-7.7); Neutrophils % (A) 93 %; Platelet Count 243 k/uL (150-450); RBC 3.67 m/uL (3.80-5.40); RDW 15.2 % (11.5-15.5); WBC 14.1 k/uL (3.8-10.6)
[2019-07-10 06:12] LABS: Albumin 3.8 g/dL (3.5-5.0); Calcium 9.4 mg/dL (8.4-10.2); Potassium 3.7 mmol/L (3.5-5.1); Total Bilirubin 0.5 mg/dL (0.2-1.3); Total Protein 6.6 g/dL (6.3-8.2)
[2019-07-10 06:31] LABS: INR 1.6 (<1.2)
[2019-07-10 06:56] LABS: Glucose,Whole Blood 225 mg/dL (75-99)
[2019-07-10] MEDS: INSULIN ASPART (NovoLOG) 100 UNIT/ML VIAL SQ SCH ×4 (08:15→20:47)
[2019-07-10] MEDS: ISOSORBIDE MONONITRATE ER 30 MG TAB.ER.24H PO SCH (08:16)
[2019-07-10] MEDS: FUROSEMIDE 40 MG TAB PO SCH (08:16)
[2019-07-10] MEDS: POTASSIUM CHLORIDE ER 20 MEQ TAB.ER PO SCH (08:16)
[2019-07-10] MEDS: METOPROLOL TARTRATE 50 MG TAB PO SCH ×2 (08:16→20:13)
[2019-07-10] MEDS: methylPREDNISolone SOD SUCCI 40 MG/ML 1 ML VIAL IV SCH (08:17)
[2019-07-10] MEDS: ACETAMINOPHEN TAB 325 MG TAB PO PRN (08:35)
[2019-07-10 11:19] LABS: Glucose,Whole Blood 211 mg/dL (75-99)
[2019-07-10] MEDS ORDERED: FUROSEMIDE 10 MG/ML 4 ML VIAL IV STA (13:10)
[2019-07-10] MEDS: methylPREDNISolone SOD SUCCI 125 MG/2 ML VIAL IV SCH ×3 (13:37→23:18)
--- NOTE | 2019-07-10 16:01 | P.PN ---
Subjective Progress Note Date: 07/09/19 Principal diagnosis: Infected bilateral foot wounds/cellulitis 79-year-old female patient with history of lymphedema, COPD and DVT admitted to the hospital with bilateral infected heel wounds with cellulitis; patient was started on IV antibiotics and ID was consulted; patient has undergone bone scan to rule out osteomyelitis which has been unremarkable 07/09/2019 Patient is seen and evaluated with nursing staff at bedside and is concerned about worsening mental status and worsening dyspnea; we will start patient on IV Solu-Medrol 40 mg every 6 hours and order ABGs and a BNP; patient had a chest x- ray done showing tracheal deviation towards right with suspicion of an underlying mass and prominence of right paratracheal soft tissues; worsening op acity and right midlung and bilateral pleural effusions; we will treat with Lasix 40 mg IV [address] of chest with and without contrast; further recommendations after CT of chest is done Objective - Vital Signs Vital signs: Vital Signs Temp 99.3 F 07/09/19 04:30 Pulse 112 H 07/09/19 04:30 Resp 22 07/09/19 04:30 BP 120/82 07/09/19 04:30 Pulse Ox 96 07/09/19 04:30 Intake & Output 07/08/19 07/09/19 07/09/19 18:59 06:59 18:59 Intake Total 600 Output Total 600 800 Balance -600 -200 Weight 120 kg Intake: Oral 600 Output: Urine 600 800 Other: Voiding Method Incontinent - Exam GENERAL: The patient is alert and oriented x3, not in any acute distress. Well developed, well nourished. HEENT: Pupils are round and equally reacting to light. EOMI. No scleral icterus. No conjunctival pallor. Normocephalic, atraumatic. No pharyngeal erythema. No thyromegaly. CARDIOVASCULAR: S1 and S2 present. No murmurs, rubs, or gallops. PULMONARY: Chest is clear to auscultation, no wheezing or crackles. ABDOMEN: Soft, nontender, nondistended, normoactive bowel sounds. No palpable organomegaly. MUSCULOSKELETAL: No joint swelling or deformity. EXTREMITIES: No cyanosis, clubbing, or pedal edema. NEUROLOGICAL: Gross neurological examination did not reveal any focal deficits. SKIN: No rashes. - Labs CBC & Chem 7: 07/10/19 05:16 07/10/19 05:16 Labs: Abnormal Lab Results - Last 24 Hours (Table) 07/07/19 07/08/19 07/08/19 Range/Units 07:03 17:25 20:22 PT (9.0-12.0) sec INR (<1.2) Creatinine (0.52-1.04) mg/dL POC Glucose (mg/dL) 171 H 159 H (75-99) mg/dL Hemoglobin A1c 6.1 H (4.0-6.0) % 07/09/19 07/09/19 07/09/19 Range/Units 07:00 08:09 08:09 PT 13.2 H (9.0-12.0) sec INR 1.3 H (<1.2) Creatinine 1.18 H (0.52-1.04) mg/dL POC Glucose (mg/dL) 168 H (75-99) mg/dL Hemoglobin A1c (4.0-6.0) % 07/09/19 Range/Units 11:52 PT (9.0-12.0) sec INR (<1.2) Creatinine (0.52-1.04) mg/dL POC Glucose (mg/dL) 155 H (75-99) mg/dL Hemoglobin A1c (4.0-6.0) % Microbiology - Last 24 Hours (Table) 07/06/19 11:18 Blood Culture - Preliminary Blood No Growth after 48 hours 07/06/19 11:18 Gram Stain - Final Foot - Left Wound Culture - Final Assessment and Plan Assessment: 1. Infected wounds bilateral heels/cellulitis lower left lower extremity 2. History of DVT 3. Paroxysmal atrial fibrillation 4. Chronic diastolic CHF 5. Diabetes mellitus As indicated above patient will continue with IV antibiotics and local wound care; ID is following to tailor antibiotic therapy; bone scan is done which is negative for osteomyelitis; patient has been started on IV Solu-Medrol and DuoNeb nebulizer treatments; I have ordered workup in form of CT of chest along with ABGs, BNP; I feel treat for fluid overload with Lasix 40 mg IV 1 Time with Patient: Greater than 30
--- NOTE | 2019-07-10 16:04 | P.PN ---
Subjective Progress Note Date: 07/10/19 Principal diagnosis: Infected bilateral foot wounds/cellulitis 79-year-old female patient with history of lymphedema, COPD and DVT admitted to the hospital with bilateral infected heel wounds with cellulitis; patient was started on IV antibiotics and ID was consulted; patient has undergone bone scan to rule out osteomyelitis which has been unremarkable 07/09/2019 Patient is seen and evaluated with nursing staff at bedside and is concerned about worsening mental status and worsening dyspnea; we will start patient on IV Solu-Medrol 40 mg every 6 hours and order ABGs and a BNP; patient had a chest x- ray done showing tracheal deviation towards right with suspicion of an underlying mass and prominence of right paratracheal soft tissues; worsening op acity and right midlung and bilateral pleural effusions; we will treat with Lasix 40 mg IV [address] of chest with and without contrast; further recommendations after CT of chest is done 07/10/2019 Patient is seen and evaluated in the presence of nursing staff; patient continues to be somewhat lethargic; shortness of breath slightly improved on IV steroids; blood sugars have been staying up over 200s possibly secondary to steroid use; I will change IV steroids to 60 mg every 6 hours and continue with DuoNeb nebulizer treatments; Lasix 40 mg IV every 12 hours for 24 hours followed by 40 mg IV daily; we will start patient on BiPAP and consult pulmonary for further recommendations; CT of the chest done showing CHF with the retro-sternal goiter; I will order thyroid profile along with ultrasound with possibility of further workup as an outpatient Objective - Vital Signs Vital signs: Vital Signs Temp 98.6 F 07/10/19 13:07 Pulse 103 H 07/10/19 13:07 Resp 22 07/10/19 13:07 BP 103/63 07/10/19 13:07 Pulse Ox 92 L 07/10/19 13:07 Intake & Output 07/09/19 07/10/19 07/10/19 18:59 06:59 18:59 Intake Total 540 300 540 Output Total 2500 600 Balance 540 -2200 -60 Intake: Oral 540 300 540 Output: Urine 2500 600 Other: Voiding Method Incontinent Incontinent Incontinent # Voids 500 # Bowel Movements 0 - Exam GENERAL: The patient is alert and oriented x3, not in any acute distress. Well developed, well nourished. HEENT: Pupils are round and equally reacting to light. EOMI. No scleral icterus. No conjunctival pallor. Normocephalic, atraumatic. No pharyngeal erythema. No thyromegaly. CARDIOVASCULAR: S1 and S2 present. No murmurs, rubs, or gallops. PULMONARY: Chest is clear to auscultation, no wheezing or crackles. ABDOMEN: Soft, nontender, nondistended, normoactive bowel sounds. No palpable organomegaly. MUSCULOSKELETAL: No joint swelling or deformity. EXTREMITIES: No cyanosis, clubbing, or pedal edema. NEUROLOGICAL: Gross neurological examination did not reveal any focal deficits. SKIN: No rashes. - Labs CBC & Chem 7: 07/10/19 05:16 07/10/19 05:16 Labs: Abnormal Lab Results - Last 24 Hours (Table) 07/09/19 07/09/19 07/09/19 Range/Units 17:01 17:07 17:07 WBC (3.8-10.6) k/uL RBC 3.25 L (3.80-5.40) m/uL Hgb 9.9 L (11.4-16.0) gm/dL Hct 32.5 L (34.0-46.0) % MCHC 30.4 L (31.0-37.0) g/dL Neutrophils # 7.8 H (1.3-7.7) k/uL Lymphocytes # (1.0-4.8) k/uL PT (9.0-12.0) sec INR (<1.2) VBG pCO2 (37-51) mmHg VBG HCO3 (24-28) mmol/L Sodium 146 H (137-145) mmol/L Carbon Dioxide 41 H* (22-30) mmol/L BUN 48 H (7-17) mg/dL Creatinine 1.36 H (0.52-1.04) mg/dL Glucose 135 H (74-99) mg/dL POC Glucose (mg/dL) 139 H (75-99) mg/dL Alkaline Phosphatase (38-126) U/L Total Protein 6.0 L (6.3-8.2) g/dL Albumin 3.3 L (3.5-5.0) g/dL Procalcitonin (0.02-0.09) ng/mL 0107/09/19 07/09/19 Range/Units 17:08 18:43 20:05 WBC (3.8-10.6) k/uL RBC (3.80-5.40) m/uL Hgb (11.4-16.0) gm/dL Hct (34.0-46.0) % MCHC (31.0-37.0) g/dL Neutrophils # (1.3-7.7) k/uL Lymphocytes # (1.0-4.8) k/uL PT (9.0-12.0) sec INR (<1.2) VBG pCO2 75 H* (37-51) mmHg VBG HCO3 39 H (24-28) mmol/L Sodium (137-145) mmol/L Carbon Dioxide (22-30) mmol/L BUN (7-17) mg/dL Creatinine (0.52-1.04) mg/dL Glucose (74-99) mg/dL POC Glucose (mg/dL) 180 H (75-99) mg/dL Alkaline Phosphatase (38-126) U/L Total Protein (6.3-8.2) g/dL Albumin (3.5-5.0) g/dL Procalcitonin 0.12 H (0.02-0.09) ng/mL 07/10/19 07/10/19 07/10/19 Range/Units 05:16 05:16 05:16 WBC 14.1 H (3.8-10.6) k/uL RBC 3.67 L (3.80-5.40) m/uL Hgb 11.2 L (11.4-16.0) gm/dL Hct (34.0-46.0) % MCHC 30.7 L (31.0-37.0) g/dL Neutrophils # 13.2 H (1.3-7.7) k/uL Lymphocytes # 0.7 L (1.0-4.8) k/uL PT 16.0 H (9.0-12.0) sec INR 1.6 H (<1.2) VBG pCO2 (37-51) mmHg VBG HCO3 (24-28) mmol/L Sodium 147 H (137-145) mmol/L Carbon Dioxide 39 H (22-30) mmol/L BUN 45 H (7-17) mg/dL Creatinine 1.15 H (0.52-1.04) mg/dL Glucose 202 H (74-99) mg/dL POC Glucose (mg/dL) (75-99) mg/dL Alkaline Phosphatase 139 H (38-126) U/L Total Protein (6.3-8.2) g/dL Albumin (3.5-5.0) g/dL Procalcitonin (0.02-0.09) ng/mL 07/10/19 07/10/19 Range/Units 06:55 11:18 WBC (3.8-10.6) k/uL RBC (3.80-5.40) m/uL Hgb (11.4-16.0) gm/dL Hct (34.0-46.0) % MCHC (31.0-37.0) g/dL Neutrophils # (1.3-7.7) k/uL Lymphocytes # (1.0-4.8) k/uL PT (9.0-12.0) sec INR (<1.2) VBG pCO2 (37-51) mmHg VBG HCO3 (24-28) mmol/L Sodium (137-145) mmol/L Carbon Dioxide (22-30) mmol/L BUN (7-17) mg/dL Creatinine (0.52-1.04) mg/dL Glucose (74-99) mg/dL POC Glucose (mg/dL) 225 H 211 H (75-99) mg/dL Alkaline Phosphatase (38-126) U/L Total Protein (6.3-8.2) g/dL Albumin (3.5-5.0) g/dL Procalcitonin (0.02-0.09) ng/mL Microbiology - Last 24 Hours (Table) 07/06/19 11:18 Blood Culture - Preliminary Blood No Growth after 96 hours Assessment and Plan Assessment: 1. Infected wounds bilateral heels/cellulitis lower left lower extremity 2. History of DVT 3. Paroxysmal atrial fibrillation 4. Chronic diastolic CHF 5. Diabetes mellitus As indicated above patient will continue with IV antibiotics and local wound care; ID is following to tailor antibiotic therapy; bone scan is done which is negative for osteomyelitis; patient has been started on IV Solu-Medrol and DuoNeb nebulizer treatments; I have ordered workup in form of CT of chest along with ABGs, BNP; I feel treat for fluid overload with Lasix 40 mg IV 1
[2019-07-10 16:39] LABS: Glucose,Whole Blood 236 mg/dL (75-99)
[2019-07-10] MEDS ORDERED: WARFARIN 10 MG TAB PO ONE (18:00)
[2019-07-10] MEDS: ATORVASTATIN 40 MG TAB PO SCH (20:13)
[2019-07-10] MEDS: FUROSEMIDE 10 MG/ML 4 ML VIAL IV SCH (20:13)
[2019-07-10] MEDS: INSULIN DETEMIR (LEVEMIR) 100 UNIT/ML SYR SQ SCH (20:14)
[2019-07-10 20:33] LABS: Glucose,Whole Blood 269 mg/dL (75-99)
[2019-07-11] MEDS: IPRATROPIUM-ALBUTEROL 3 ML NEB INHALATION SCH ×6 (04:17→23:47)
[2019-07-11] MEDS: LEVOTHYROXINE 88 MCG TAB PO SCH (05:56)
[2019-07-11] MEDS: methylPREDNISolone SOD SUCCI 125 MG/2 ML VIAL IV SCH ×3 (05:56→17:40)
--- NOTE | 2019-07-11 07:02 | PN ---
PROGRESS NOTE DATE OF SERVICE: 07/10/2019 REASON FOR FOLLOWUP: Bilateral heel pressure ulcer, left greater than right. INTERVAL HISTORY: The patient is currently afebrile. The patient has been pleasantly confused though. No chest pain or cough. No vomiting or diarrhea reported or any worsening pain to the bilateral heel wounds. PHYSICAL EXAMINATION: Blood pressure is 103/63 with a pulse of 103, temperature of 98.6. She is 92% on 2 L nasal cannula. General description is an elderly female lying in bed in no distress. RESPIRATORY SYSTEM: Unlabored breathing, clear to auscultation anteriorly. HEART: S1, S2. Regular rate and rhythm. ABDOMEN: Soft, no tenderness. Heel wounds currently dressed up, no drainage on the dressing. LABS: Hemoglobin is 11.2 with white count 14.1. BUN of 45, creatinine is 1.15. Wound culture negative. Bone scan was negative for any osteomyelitis. DIAGNOSTIC IMPRESSION AND PLAN: Patient with bilateral heel pressure ulcer stage III, left greater than right. Culture negative for resistant pathogen. The bone scan was negative. Local care to [facility] with [facility]. Recommend vascular surgery evaluation for debridement of the left heel wound and possible deep cultures. Continue Cefazolin. Monitor clinical course closely. MMODL / IJN: [id number] /
[2019-07-11 07:13] LABS: Glucose,Whole Blood 245 mg/dL (75-99)
--- NOTE | 2019-07-11 07:54 | US ---
EXAMINATION TYPE: US thyroid st tissue head/neck DATE OF EXAM: 07/11/2019 COMPARISON: Chest CT 2 days ago CLINICAL HISTORY: Goiter. Inpatient with Oxygen mask on patient's face; patient stated takes thyroid medication GLAND SIZE: Right Lobe: 5.7 x 3.0 x 3.5 cm Overall Parenchyma: heterogenous Left Lobe: 5.1 x 3.0 x 3.0 cm Overall Parenchyma: heterogeneous Isthmus Thickness: 0.4 cm NODULES RIGHT: # of nodules measured on right: 2 discreet nodules in multinodular thyroid 1. 1.1 X 1.1 x 0.9 cm hypoechoic mixed nodule at the upper pole with well-defined margins. This no dule is wider than tall and shows no intranodular vascularity. 2. 1.9 X 1.8 x 1.2 cm hypoechoic cystic nodule at the lower pole with well-defined margins. This no dule is wider than tall and shows no intranodular vascularity. LEFT: # of nodules measured on left: 1 1. 0.7 X 0.9 x 0.6 cm hypoechoic mixed nodule at the upper pole with well-defined margins. This no dule is wider than tall and shows no intranodular vascularity. ISTHMUS: # of nodules measured in the isthmus: 0 Bilateral neck scanned: no evidence of lymphadenopathy. Enlarged thyroid with lobular borders noted bilaterally. Heterogeneous slightly enlarged thyroid with several small nodules, largest measured by the technolog ist posterior lower pole up to 1.9 cm elongated hypoechoic to anechoic nodule. IMPRESSION: Multinodular goiter confirmed.
[2019-07-11] MEDS: METOPROLOL TARTRATE 50 MG TAB PO SCH ×2 (08:10→18:43)
[2019-07-11] MEDS: POTASSIUM CHLORIDE ER 20 MEQ TAB.ER PO SCH ×3 (08:10→13:39)
[2019-07-11] MEDS: ACETAMINOPHEN TAB 325 MG TAB PO PRN (08:10)
[2019-07-11] MEDS: ISOSORBIDE MONONITRATE ER 30 MG TAB.ER.24H PO SCH (08:10)
[2019-07-11] MEDS: INSULIN ASPART (NovoLOG) 100 UNIT/ML VIAL SQ SCH ×4 (08:11→21:00)
[2019-07-11] MEDS ORDERED: LIDOCAINE 1% INJ 10MG/ML (20 ML MDV) SQ ONE (09:14)
[2019-07-11] MEDS: FUROSEMIDE 10 MG/ML 4 ML VIAL IV SCH ×2 (09:17→21:01)
[2019-07-11 09:24] LABS: Basophils # (A) 0.1 k/uL (0-0.2); Basophils % (A) 0 %; Eosinophils % (A) 0 %; HCT 36.1 % (34.0-46.0); Hypochromasia Moderate; Lymphocytes # (A) 0.5 k/uL (1.0-4.8); Lymphocytes % (A) 3 %; MCHC 30.4 g/dL (31.0-37.0); MCV 98.8 fL (80.0-100.0); Macrocytosis Slight; Mean Platelet Volume 9.3; Monocytes # (A) 0.4 k/uL (0-1.0); Monocytes % (A) 2 %; Neutrophils # (A) 15.3 k/uL (1.3-7.7); Neutrophils % (A) 93 %; Platelet Count 251 k/uL (150-450); RBC 3.66 m/uL (3.80-5.40); RDW 15.2 % (11.5-15.5); WBC 16.4 k/uL (3.8-10.6)
[2019-07-11 09:32] LABS: INR 3.3 (<1.2); Prothrombin Time 32.3 sec (9.0-12.0)
[2019-07-11 09:39] LABS: Albumin 3.7 g/dL (3.5-5.0); Calcium 9.6 mg/dL (8.4-10.2); Potassium 3.3 mmol/L (3.5-5.1); Total Bilirubin 0.5 mg/dL (0.2-1.3); Total Protein 6.7 g/dL (6.3-8.2)
--- NOTE | 2019-07-11 10:04 | CONS ---
CONSULTATION An 79-year-old female patient has been admitted with left heel wound infected. Consult for the wound debridement. Medical history of lymphedema, COPD, history of DVT in the past. Patient has been treated in the Wound Clinic, has been admitted for ID consult and local wound care. The patient was seen by the Infectious Disease. We will proceed for wound debridement. MEDICAL HISTORY: History of atrial fibrillation, heart failure, COPD, diabetes mellitus, deep vein thrombosis, rheumatoid arthritis. PHYSICAL EXAMINATION: Patient was seen in her room. NECK: Supple. CHEST: Has crackles bilaterally. ABDOMEN: Soft Femorals are 1+. Patient has a lymphedema of both lower extremity with compression dressing on. The left heel has infected wound with some devitalized tissue present. PLAN: Debridement of the wound. Will follow with you. Thank you very much. MMODL / IJN: [id number] /
[2019-07-11 11:24] LABS: Glucose,Whole Blood 280 mg/dL (75-99)
--- NOTE | 2019-07-11 12:18 | CDI ---
Documentation Clarification Form Date: 07/11/2019 12:04:56 PM From: Yanet Salcido RN, CCDS Admit Date: 07/06/2019 12:23:00 PM Patient Name: Tamar Dominguez Visit Number: [id number] ATTENTION: The Clinical Documentation Specialists (CDI) and [facility] Coding Staff appreciate your assistance in clarifying documentation. Please respond to the clarification below the line at the bottom and electronically sign. The CDI & [facility] Coding staff will review the response and follow-up if needed. Please note: Queries are made part of the Legal Health Record. If you have any questions, please contact the author of this message via ITS. Dr. Dominick Rosen History/Risk Factors: PMH: renal disease, DM2, Atrial Fib Patients baseline BUN/CR/GFR: 50/1.05/50 Clinical Indicators: Current BUN: 56/47/48/45 Cr: 1.27/1.24/1.36/1.15 GFR: t40/41/37/45 Treatment: IVF @ 20 cc/hr In order to capture the severity of condition, please clarify if the condition signifies: Acute renal failure, Please specify etiology (if known): Cortical Necrosis Medullary Necrosis Tubular Necrosis Acute kidney injury Acute on chronic renal failure CKD Stage 1 GFR >90 CKD Stage 2 GFR 60-89 CKD Stage 3 GFR 30-59 CKD Stage 4 GFR 15-29 CKD Stage 5 GFR <15 Chronic renal failure/Chronic Kidney disease (CKD) please stage (if known): CKD Stage 1 GFR >90 CKD Stage 2 GFR 60-89 CKD Stage 3 GFR 30-59 CKD Stage 4 GFR 15-29 CKD Stage 5 GFR <15 ESRD Other, please specify Unable to determine (Last Revision: September 2017) Acute on chronic renal failure stage 3 MTDD
--- NOTE | 2019-07-11 12:29 | CDI ---
Documentation Clarification Form Date: 07/11/2019 12:22:44 PM From: Yanet Salcido RN, CCDS Admit Date: 07/06/2019 12:23:00 PM Patient Name: Tamar Dominguez Visit Number: [id number] ATTENTION: The Clinical Documentation Specialists (CDI) and [facility] Coding Staff appreciate your assistance in clarifying documentation. Please respond to the clarification below the line at the bottom and electronically sign. The CDI & [facility] Coding staff will review the response and follow-up if needed. Please note: Queries are made part of the Legal Health Record. If you have any questions, please contact the author of this message via ITS. Dr. Dominick Rosen A diagnosis of anemia lacks specificity to accurately reflect your patients severity of condition and clarification is needed. History/Risk Factors: Anemia. NIDDM 2, mild pulmonary HTN, Chronic respiratory failure Clinical indicators: Hemoglobin: 10.8/10.3/9.9/11.2/11 Hematocrit: 32.6/33.5/32.5/36.5/36.1 Treatment: monitoring labs Coumadin PO IVF@ 20 cc/hr In order to capture the severity of condition, please clarify the type of anemia and etiology if known: Acute blood loss anemia Acute on chronic blood loss anemia Chronic blood loss anemia Iron deficiency anemia Drug induced anemia Nutritional anemia Anemia of chronic kidney disease Anemia of chronic disease Unable to determine Other, please specify (Last Revision: March 2017) anemia of chronic kidney disease MTDD
--- NOTE | 2019-07-11 15:35 | OP ---
OPERATIVE REPORT PREOPERATIVE DIAGNOSIS: Chronic wound, left heel. Measurement is 4 x 4 cm. POSTOPERATIVE DIAGNOSIS: Chronic wound, left heel. Measurement is 4 x 4 cm. OPERATION: Debridement of the wound down to subcutaneous tissues. DESCRIPTION OF PROCEDURE: This patient was seen. The left foot was prepped and draped in the usual sterile manner. Lidocaine 1% was infiltrated. Patient has devitalized tissue and necrotic skin at the left heel area. Using a sharp knife, we excised the wound down to subcutaneous tissue. All the necrotic tissue and devitalized tissue was removed. Some deep culture was sent for culture and sensitivity. No active bleeding was noted. The wound was irrigated with saline, and Medihoney gel was applied to the wound. A pressure dressing was applied. The patient tolerated the procedure well. PLAN: I have discussed the case with Dr. Yap. Patient will be using Santyl cream for local wound care on a daily basis, and nonweightbearing. I will follow with you. MMODL / IJN: [id number] /
[2019-07-11] MEDS ORDERED: Potassium Replacement Protocol 1 EACH MISC MISCELLANE PRN (15:38)
--- NOTE | 2019-07-11 15:53 | P.PN ---
Subjective Progress Note Date: 07/11/19 Tamar Dominguez is an 79-year-old female with PMH of lymphedema, COPD, hx DVT who presented to the ED after being seen at the wound center and was recommended to present to the ED for worsening wound. Pt was noted to have increased pain and drainage to the bilateral heels left worse then right. Pt states her heels have been very painful for a few weeks. She states she has been staying off her feet. On presentation pt was afebrile, WBC 15.8 creatinine 1.27. XR foot showed demineralization with diffuse subcutaneous edema. Pt was been started on vancomycin and admitted to medicine with ID consult. 07/08/2019 15 on IV antibiotics/Wound Care as per infectious disease. No MRSA identified per wound cultures. Bone scan ordered. Afebrile. Denies chest pain, palpitations or shortness of breath. Denies nausea vomiting or diarrhea. Denies abdominal pain. Blood sugars controlled. INR 1.1. 07/11/2019 bone scan reported negative for osteomyelitis.wound culture have reported anaerobic gram-negative bacilli, anaerobic gram-negative bacilli #2 and gram-positive cocci .maintained on cefazolin. Afebrile, normal WBC .evaluated by vascular surgery, patient is scheduled for left heel ulcer debridement. Pain controlled. INR 3.3. Potassium 3.3, receiving potassium supplements. Denies chest pain, palpitations or shortness of breath. Complains of mild sinus congestion, nonproductive cough, mild sore throat. Objective - Vital Signs Vital signs: Vital Signs Temp 98.6 F 07/11/19 13:02 Pulse 117 H 07/11/19 13:30 Resp 20 07/11/19 13:02 BP 132/80 07/11/19 13:02 Pulse Ox 95 07/11/19 13:02 Intake & Output 07/10/19 07/11/19 07/11/19 18:59 06:59 18:59 Intake Total 540 Output Total 600 850 Balance -60 -850 Intake: Oral 540 Output: Urine 600 850 Other: Voiding Method Incontinent Incontinent Incontinent # Bowel Movements 0 - Exam General: well nourished obese female in NAD. Eyes: PERRL, EOMI, conjunctiva normal HENT: normocephalic, mucus membranes moist Neck: supple, no JVD Lungs: normal respiratory effort, no wheezes or rales CV: Regular rate and rhythm, no murmur. Peripheral pulses 2+. Bilateral LE with + edema Abdomen: soft, nondistended, no organomegaly Skin: Bilateral lower extremitie heel wounds, Myles wrapped, clean dry and intact, toes warm Neuro: A&Ox3, normal mood and affect Microbiology 07/06/19 11:18 Blood Blood Culture - Preliminary No Growth after 120 hours 07/06/19 11:18 Foot - Left Anaerobic Culture - Final Anaerobic Gm Negative Bacilli Anaerobic Gm Negative Bacilli#2 Gram Positive Cocci Isolated 07/06/19 11:18 Foot - Left Gram Stain - Final 07/06/19 11:18 Foot - Left Wound Culture - Final - Labs CBC & Chem 7: 07/11/19 07:56 07/11/19 07:56 Labs: Abnormal Lab Results - Last 24 Hours (Table) 07/10/19 07/10/19 07/11/19 Range/Units 16:37 20:31 07:01 WBC (3.8-10.6) k/uL RBC (3.80-5.40) m/uL Hgb (11.4-16.0) gm/dL MCHC (31.0-37.0) g/dL Neutrophils # (1.3-7.7) k/uL Lymphocytes # (1.0-4.8) k/uL PT (9.0-12.0) sec INR (<1.2) Sodium (137-145) mmol/L Potassium (3.5-5.1) mmol/L Carbon Dioxide (22-30) mmol/L BUN (7-17) mg/dL Creatinine (0.52-1.04) mg/dL Glucose (74-99) mg/dL POC Glucose (mg/dL) 236 H 269 H 245 H (75-99) mg/dL 07/11/19 07/11/19 07/11/19 Range/Units 07:56 07:56 07:56 WBC 16.4 H (3.8-10.6) k/uL RBC 3.66 L (3.80-5.40) m/uL Hgb 11.0 L (11.4-16.0) gm/dL MCHC 30.4 L (31.0-37.0) g/dL Neutrophils # 15.3 H (1.3-7.7) k/uL Lymphocytes # 0.5 L (1.0-4.8) k/uL PT 32.3 H (9.0-12.0) sec INR 3.3 H (<1.2) Sodium 148 H (137-145) mmol/L Potassium 3.3 L (3.5-5.1) mmol/L Carbon Dioxide 40 H (22-30) mmol/L BUN 58 H (7-17) mg/dL Creatinine 1.10 H (0.52-1.04) mg/dL Glucose 230 H (74-99) mg/dL POC Glucose (mg/dL) (75-99) mg/dL 07/11/19 Range/Units 11:13 WBC (3.8-10.6) k/uL RBC (3.80-5.40) m/uL Hgb (11.4-16.0) gm/dL MCHC (31.0-37.0) g/dL Neutrophils # (1.3-7.7) k/uL Lymphocytes # (1.0-4.8) k/uL PT (9.0-12.0) sec INR (<1.2) Sodium (137-145) mmol/L Potassium (3.5-5.1) mmol/L Carbon Dioxide (22-30) mmol/L BUN (7-17) mg/dL Creatinine (0.52-1.04) mg/dL Glucose (74-99) mg/dL POC Glucose (mg/dL) 280 H (75-99) mg/dL Microbiology - Last 24 Hours (Table) 07/06/19 11:18 Blood Culture - Preliminary Blood No Growth after 120 hours 07/06/19 11:18 Anaerobic Culture - Final Foot - Left Anaerobic Gm Negative Bacilli Anaerobic Gm Negative Bacilli#2 Gram Positive Cocci Isolated Assessment and Plan Assessment: (1) Pressure injury of both heels, stage 3 Current Visit: Yes Status: Acute Code(s): L89.613 - PRESSURE ULCER OF RIGHT HEEL, STAGE 3; L89.623 - PRESSURE ULCER OF LEFT HEEL, STAGE 3 SNOMED Code(s): 243182010 (2) History of DVT (deep vein thrombosis) Current Visit: Yes Status: Acute Code(s): Z86.718 - PERSONAL HISTORY OF OTHER VENOUS THROMBOSIS AND EMBOLISM SNOMED Code(s): 089703161 (3) Paroxysmal A-fib Current Visit: Yes Status: Acute Code(s): I48.0 - PAROXYSMAL ATRIAL FIBRILLATION SNOMED Code(s): 773153105 (4) Gangrene Current Visit: Yes Status: Acute Code(s): I96 - GANGRENE, NOT ELSEWHERE CLA SSIFIED SNOMED Code(s): 242198430 (5) Chronic diastolic CHF (congestive heart failure), NYHA class 3 Current Visit: Yes Status: Acute Code(s): I50.32 - CHRONIC DIASTOLIC (CONGE STIVE) HEART FAILURE SNOMED Code(s): 945798011 (6) Cellulitis of left lower extremity Current Visit: No Status: Acute Code(s): L03.116 - CELLULITIS OF LEFT LOWER LIMB SNOMED Code(s): 767108675 (7) Diabetes, hemoglobin A1c 6.1 Current Visit: No Status: Acute Code(s): E11.9 - TYPE 2 DIABETES MELLITUS WITHOUT COMPLICATIONS SNOMED Code(s): 14974891 (8) acute on chronic renal failure, stage IV (9) anemia of chronic disease (10) chronic hypoxic respiratory failure (11) hypokalemia Plan: Continue on current medication regime ,monitoring and symptomatic treatment. Maintain IV antibiotics/Wound Care as per infectious disease. Evaluated by vascular surgery and scheduled for debridement , deep tissue cultures.Close monitoring of Accu-Cheks, electrolytes, potassium placement ordered, repeat labs ordered for a.m. Chloraseptic lozenges ordered. [facility], clearance from vascular surgery and infectious disease. The impression and plan of care has been dictated as directed. : I performed a history and examination of this patient, discussed the same with the dictator. I agree with the dictator's note ,documented as a scribe. Any additional findings or plans will be noted.
[2019-07-11 17:09] LABS: Glucose,Whole Blood 261 mg/dL (75-99)
[2019-07-11] MEDS ORDERED: WARFARIN 0.5 MG TAB PO ONE (18:00)
--- NOTE | 2019-07-11 18:14 | P.CNPUL ---
History of Present Illness Consult date: 07/11/19 Reason for consult: dyspnea, pleural effusion History of present illness: 79-year-old morbidly obese female patient with a BMI of 44 no history of COPD and previous history of DVT, diastolic heart failure, diabetes mellitus and pressure ulcer of the heels, came into the hospital because of wounds in her lower extremities which have been painful and she has also noted drainage to the bilateral heels worse on the left. He was afebrile with a white cell count of 15.8, admission a creatinine of 1.2. X-ray of the foot showed demineralization with diffuse subcutaneous emphysema. The patient was started on vancomycin and ID consultation was requested. Bone scan came back negative for osteomyelitis. Wound culture was positive for anaerobic gram-negative bacteria and gram- positive cocci. The CAT scan of the chest was done and the patient was found to have bilateral pleural effusion and atelectatic changes in lung bases bilaterally. No suspicious mediastinal mass. 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 No mediastinal lymphadenopathy. No pericardial effusion. There is some elevation of the right hemidiaphragm. There are 3 cm low-density left adrenal lesion was also seen. The patient also underwent debridement of the wound to the left. There was measuring 4 x 4 CM. All of the necrotic tissue and the devitalized tissue was removed. The wound was irrigated with saline and medical management was applied. A pressure dressing was also applied. Review of Systems Constitutional: Reports as per HPI, Reports weakness, Denies chills, Denies fever Eyes: denies blurred vision, denies pain Ears, nose, mouth and throat: Denies headache, Denies sore throat Cardiovascular: Denies chest pain, no dyspnea at rest and she has had some chronic dyspnea, exertional in nature. Respiratory: Denies cough and some shortness of breath with activity. Nevertheless, the patient has been essentially sedentary for the time being and she has not #20 for now. Gastrointestinal: Denies abdominal pain, Denies diarrhea, Denies nausea, Denies vomiting Genitourinary: Denies dysuria, Denies hematuria Musculoskeletal: Reports as per HPI, Reports gait dysfunction, Reports leg numbness/tingling, Denies myalgias Integumentary: Denies pruritus, Denies rash, heel ulcers bilaterally Neurological: Denies numbness, she has weakness in lower extremities bilaterally and difficulty with mobility, awake and alert and she is following commands and answering questions appropriately without any confusion and altered mentation. Psychiatric: Denies anxiety, Denies depression Endocrine: Denies fatigue, the patient is morbidly obese with a BMI of 44 Past Medical History Past Medical History: Atrial Fibrillation, Heart Failure, COPD, Diabetes Mellitus, Deep Vein Thrombosis (DVT), GERD/Reflux, Hyperlipidemia, Hypertension, Osteoarthritis (OA), Pneumonia, Renal Disease, Respiratory Disorder, Rheumatoid Arthritis (RA), Sleep Apnea/CPAP/BIPAP, Thyroid Disorder Additional Past Medical History / Comment(s): Chronic respiratory failure, home O2 at 2L/NC, possible mild pulmonary HTN, JOSR but no longer uses her device, lower extremity edema/redness/cellulitis-legs currently wrapped by son-states blisters on both legs and leakage from L leg, pt states she currently has a decubitus on her coccyx, NIDDM type II, neuropathy bilateral hands/feet, CKD stage III, pt states she has had "bleeding in the kidneys" in the past, anemia, UTI with sepsis, incontinent of urine and occasionally stool, migraines, gout, hypothyroid, vertigo. History of Any Multi-Drug Resistant Organisms: None Reported Past Surgical History: Heart Catheterization, Hysterectomy, Joint Replacement, Orthopedic Surgery Additional Past Surgical History / Comment(s): Cardiac cath 2017-treated medically, R total knee replacement, L foot heel spur, sanjana cataracts with lens implants, cystoscopy, EGD, colonoscopy. Past Anesthesia/Blood Transfusion Reactions: No Reported Reaction Past Psychological History: No Psychological Hx Reported Additional Psychological History / Comment(s): since 1997. Cared for by son in his home. No travel. experience. No animal exposures. stopped smoking several years ago no history of recreational drug use Smoking Status: Former smoker Past Alcohol Use History: None Reported Additional Past Alcohol Use History / Comment(s): Pt started smoking in 1953 and quit in 2013. Past Drug Use History: None Reported - Past Family History Mother Family Medical History: Renal Disease Father Family Medical History: Coronary Artery Disease (CAD) Medications and Allergies Home Medications Medication Instructions Recorded Confirmed Type Isosorbide Mononitrate ER [Imdur] 30 mg PO DAILY 01/16/17 07/06/19 History Potassium Chloride ER [K-Dur 20] 40 meq PO DAILY 03/22/18 07/06/19 History Ubidecarenone [Co Q-10] 200 mg PO DAILY 03/22/18 07/06/19 History Allopurinol [Zyloprim] 300 mg PO DAILY 02/10/19 07/06/19 History Atorvastatin [Lipitor] 40 mg PO HS 02/10/19 07/06/19 History Liothyronine Sodium [Cytomel] 5 mcg PO DAILY 02/10/19 07/06/19 History traMADol HCL [Ultram] 50 mg PO QID PRN 02/10/19 07/06/19 History Acetaminophen Tab [Tylenol] 650 mg PO Q4HR PRN tab 02/21/19 07/06/19 Rx Docusate [Colace] 100 mg PO DAILY cap 02/21/19 07/06/19 Rx Furosemide [Lasix] 40 mg PO TID 07/06/19 07/06/19 History Ipratropium-Albuterol Nebulize 3 ml INHALATION QID PRN 07/06/19 07/06/19 History [Duoneb 0.5 mg-3 mg/3 ml Soln] Levothyroxine Sodium [Synthroid] 88 mcg PO DAILY 07/06/19 07/06/19 History Meclizine [Antivert] 12.5 mg PO TID 07/06/19 07/06/19 History Metolazone [Zaroxolyn] 5 mg PO Q7D 07/06/19 07/06/19 History Warfarin [Coumadin] 5 mg PO DAILY 07/06/19 07/06/19 History Allergies Allergy/AdvReac Type Severity Reaction Status Date / Time iron Allergy Rash/Hives Verified 02/10/19 07:49 Sulfa (Sulfonamide Allergy Rash/Hives Verified 02/10/19 07:49 Antibiotics) Tetanus Vaccines and Toxoid Allergy Swelling Verified 02/10/19 07:49 Physical Exam Vitals: Vital Signs Temp Pulse Pulse Pulse Resp BP Pulse Ox 07/11/19 17:51 130 H 07/11/19 17:04 100 18 07/11/19 16:07 116 H 18 07/11/19 15:59 116 H 16 07/11/19 13:30 117 H 07/11/19 13:12 116 H 07/11/19 13:02 98.6 F 100 20 132/80 95 07/11/19 09:03 112 H 07/11/19 08:53 110 H 07/11/19 07:52 118 H 134/50 07/11/19 07:49 16 92 L 07/11/19 05:30 98.7 F 107 H 20 142/86 85 L 07/11/19 04:29 115 H 07/11/19 04:18 114 H 07/10/19 23:44 117 H 07/10/19 23:33 114 H 07/10/19 22:08 97.9 F 97 20 126/72 91 L 07/10/19 19:36 116 H 07/10/19 19:22 110 H Intake and Output 07/11/19 07/11/19 07/11/19 06:59 14:59 22:59 Intake Total 540 Output Total 450 1050 Balance -450 -510 Intake: Oral 540 Output: Urine 450 1050 Other: Voiding Method Incontinent Incontinent Incontinent # Voids 500 # Bowel Movements 0 0 Gen. appearance obese, comfortable likely distress PMI is 44 Head exam was generally normal. There was no scleral icterus or corneal arcus. Mucous membranes were moist. Neck was supple and without jugular venous distension, thyromegaly, or carotid bruits. Carotids were easily palpable bilaterally. There was no adenopathy. Lungs sounds are diminished in the lower lung whitt bilaterally along with some dullness to percussion. No wheezes or rhonchi. Cardiac exam revealed the PMI to be normally situated and sized. The rhythm was regular and no extrasystoles were noted during several minutes of auscultation. The first and second heart sounds were normal and physiologic splitting of the second heart sound was noted. There were no murmurs, rubs, clicks, or gallops. Abdominal exam revealed normal bowel sounds. The abdomen was soft, non-tender, and without masses, organomegaly, or appreciable enlargement of the abdominal aorta. Organs cannot be accurately palpated as patient is obese extremities revealed +1-2 pitting edema addition to diminished pulses in lower extremities bilaterally and the patient has a 4 x 4 centimeter left heel ulcer that was debrided today and another 1 cm ulcer with central dilation tissue on the right neurologically awake and alert and there is no focal neurological deficit there is motor weakness lower extremities bilaterally. Results - Laboratory Findings CBC and BMP: 07/11/19 07:56 07/11/19 07:56 PT/INR, D-dimer PT 32.3 sec (9.0-12.0) H 07/11/19 07:56 INR 3.3 (<1.2) H 07/11/19 07:56 Abnormal lab findings: Abnormal Labs 07/06/19 07/06/19 07/06/19 11:18 11:18 11:18 WBC 15.8 H RBC 3.42 L Hgb 10.8 L Hct 32.6 L MCHC Neutrophils # 13.3 H Lymphocytes # PT INR APTT 21.7 L VBG pCO2 VBG HCO3 Sodium Potassium 3.1 L Carbon Dioxide 36 H BUN 56 H Creatinine 1.27 H Glucose 172 H POC Glucose (mg/dL) Hemoglobin A1c Alkaline Phosphatase Total Protein Albumin Procalcitonin Urine Appearance Urine Protein Urine Blood Ur Leukocyte Esterase Urine RBC Urine WBC Urine WBC Clumps Ur Squamous Epith Cells Amorphous Sediment Urine Bacteria Urine Mucus 07/06/19 07/06/19 07/06/19 15:20 16:47 21:13 WBC RBC Hgb Hct MCHC Neutrophils # Lymphocytes # PT INR APTT VBG pCO2 VBG HCO3 Sodium Potassium Carbon Dioxide BUN Creatinine Glucose POC Glucose (mg/dL) 160 H 271 H Hemoglobin A1c Alkaline Phosphatase Total Protein Albumin Procalcitonin Urine Appearance Cloudy H Urine Protein Trace H Urine Blood Moderate H Ur Leukocyte Esterase Large H Urine RBC 14 H Urine WBC >182 H Urine WBC Clumps Occasional H Ur Squamous Epith Cells 5 H Amorphous Sediment Rare H Urine Bacteria Occasional H Urine Mucus Rare H 07/07/19 07/07/19 07/07/19 03:28 07:03 07:03 WBC 11.9 H RBC 3.41 L Hgb 10.3 L Hct 33.5 L MCHC 30.8 L Neutrophils # 10.0 H Lymphocytes # PT INR APTT VBG pCO2 VBG HCO3 Sodium Potassium 3.3 L Carbon Dioxide 39 H BUN 47 H Creatinine 1.24 H Glucose 128 H POC Glucose (mg/dL) 167 H Hemoglobin A1c Alkaline Phosphatase Total Protein 6.1 L Albumin 3.4 L Procalcitonin Urine Appearance Urine Protein Urine Blood Ur Leukocyte Esterase Urine RBC Urine WBC Urine WBC Clumps Ur Squamous Epith Cells Amorphous Sediment Urine Bacteria Urine Mucus 07/07/19 07/07/19 07/07/19 07:03 07:14 12:12 WBC RBC Hgb Hct MCHC Neutrophils # Lymphocytes # PT INR APTT VBG pCO2 VBG HCO3 Sodium Potassium Carbon Dioxide BUN Creatinine Glucose POC Glucose (mg/dL) 150 H 189 H Hemoglobin A1c 6.1 H Alkaline Phosphatase Total Protein Albumin Procalcitonin Urine Appearance Urine Protein Urine Blood Ur Leukocyte Esterase Urine RBC Urine WBC Urine WBC Clumps Ur Squamous Epith Cells Amorphous Sediment Urine Bacteria Urine Mucus 07/07/19 07/07/19 07/08/19 16:56 19:53 06:58 WBC RBC Hgb Hct MCHC Neutrophils # Lymphocytes # PT INR APTT VBG pCO2 VBG HCO3 Sodium Potassium Carbon Dioxide BUN Creatinine Glucose POC Glucose (mg/dL) 181 H 175 H 179 H Hemoglobin A1c Alkaline Phosphatase Total Protein Albumin Procalcitonin Urine Appearance Urine Protein Urine Blood Ur Leukocyte Esterase Urine RBC Urine WBC Urine WBC Clumps Ur Squamous Epith Cells Amorphous Sediment Urine Bacteria Urine Mucus 07/08/19 07/08/19 07/08/19 11:35 17:25 20:22 WBC RBC Hgb Hct MCHC Neutrophils # Lymphocytes # PT INR APTT VBG pCO2 VBG HCO3 Sodium Potassium Carbon Dioxide BUN Creatinine Glucose POC Glucose (mg/dL) 155 H 171 H 159 H Hemoglobin A1c Alkaline Phosphatase Total Protein Albumin Procalcitonin Urine Appearance Urine Protein Urine Blood Ur Leukocyte Esterase Urine RBC Urine WBC Urine WBC Clumps Ur Squamous Epith Cells Amorphous Sediment Urine Bacteria Urine Mucus 07/09/19 07/09/19 07/09/19 07:00 08:09 08:09 WBC RBC Hgb Hct MCHC Neutrophils # Lymphocytes # PT 13.2 H INR 1.3 H APTT VBG pCO2 VBG HCO3 Sodium Potassium Carbon Dioxide BUN Creatinine 1.18 H Glucose POC Glucose (mg/dL) 168 H Hemoglobin A1c Alkaline Phosphatase Total Protein Albumin Procalcitonin Urine Appearance Urine Protein Urine Blood Ur Leukocyte Esterase Urine RBC Urine WBC Urine WBC Clumps Ur Squamous Epith Cells Amorphous Sediment Urine Bacteria Urine Mucus 07/09/19 07/09/19 07/09/19 11:52 17:01 17:07 WBC RBC 3.25 L Hgb 9.9 L Hct 32.5 L MCHC 30.4 L Neutrophils # 7.8 H Lymphocytes # PT INR APTT VBG pCO2 VBG HCO3 Sodium Potassium Carbon Dioxide BUN Creatinine Glucose POC Glucose (mg/dL) 155 H 139 H Hemoglobin A1c Alkaline Phosphatase Total Protein Albumin Procalcitonin Urine Appearance Urine Protein Urine Blood Ur Leukocyte Esterase Urine RBC Urine WBC Urine WBC Clumps Ur Squamous Epith Cells Amorphous Sediment Urine Bacteria Urine Mucus 07/09/19 07/09/19 07/09/19 17:07 17:08 18:43 WBC RBC Hgb Hct MCHC Neutrophils # Lymphocytes # PT INR APTT VBG pCO2 75 H* VBG HCO3 39 H Sodium 146 H Potassium Carbon Dioxide 41 H* BUN 48 H Creatinine 1.36 H Glucose 135 H POC Glucose (mg/dL) Hemoglobin A1c Alkaline Phosphatase Total Protein 6.0 L Albumin 3.3 L Procalcitonin 0.12 H Urine Appearance Urine Protein Urine Blood Ur Leukocyte Esterase Urine RBC Urine WBC Urine WBC Clumps Ur Squamous Epith Cells Amorphous Sediment Urine Bacteria Urine Mucus 07/09/19 07/10/19 07/10/19 20:05 05:16 05:16 WBC RBC Hgb Hct MCHC Neutrophils # Lymphocytes # PT 16.0 H INR 1.6 H APTT VBG pCO2 VBG HCO3 Sodium 147 H Potassium Carbon Dioxide 39 H BUN 45 H Creatinine 1.15 H Glucose 202 H POC Glucose (mg/dL) 180 H Hemoglobin A1c Alkaline Phosphatase 139 H Total Protein Albumin Procalcitonin Urine Appearance Urine Protein Urine Blood Ur Leukocyte Esterase Urine RBC Urine WBC Urine WBC Clumps Ur Squamous Epith Cells Amorphous Sediment Urine Bacteria Urine Mucus 07/10/19 07/10/19 07/10/19 05:16 06:55 11:18 WBC 14.1 H RBC 3.67 L Hgb 11.2 L Hct MCHC 30.7 L Neutrophils # 13.2 H Lymphocytes # 0.7 L PT INR APTT VBG pCO2 VBG HCO3 Sodium Potassium Carbon Dioxide BUN Creatinine Glucose POC Glucose (mg/dL) 225 H 211 H Hemoglobin A1c Alkaline Phosphatase Total Protein Albumin Procalcitonin Urine Appearance Urine Protein Urine Blood Ur Leukocyte Esterase Urine RBC Urine WBC Urine WBC Clumps Ur Squamous Epith Cells Amorphous Sediment Urine Bacteria Urine Mucus 07/10/19 07/10/19 07/11/19 16:37 20:31 07:01 WBC RBC Hgb Hct MCHC Neutrophils # Lymphocytes # PT INR APTT VBG pCO2 VBG HCO3 Sodium Potassium Carbon Dioxide BUN Creatinine Glucose POC Glucose (mg/dL) 236 H 269 H 245 H Hemoglobin A1c Alkaline Phosphatase Total Protein Albumin Procalcitonin Urine Appearance Urine Protein Urine Blood Ur Leukocyte Esterase Urine RBC Urine WBC Urine WBC Clumps Ur Squamous Epith Cells Amorphous Sediment Urine Bacteria Urine Mucus 07/11/19 07/11/19 07/11/19 07:56 07:56 07:56 WBC 16.4 H RBC 3.66 L Hgb 11.0 L Hct MCHC 30.4 L Neutrophils # 15.3 H Lymphocytes # 0.5 L PT 32.3 H INR 3.3 H APTT VBG pCO2 VBG HCO3 Sodium 148 H Potassium 3.3 L Carbon Dioxide 40 H BUN 58 H Creatinine 1.10 H Glucose 230 H POC Glucose (mg/dL) Hemoglobin A1c Alkaline Phosphatase Total Protein Albumin Procalcitonin Urine Appearance Urine Protein Urine Blood Ur Leukocyte Esterase Urine RBC Urine WBC Urine WBC Clumps Ur Squamous Epith Cells Amorphous Sediment Urine Bacteria Urine Mucus 07/11/19 07/11/19 11:13 16:43 WBC RBC Hgb Hct MCHC Neutrophils # Lymphocytes # PT INR APTT VBG pCO2 VBG HCO3 Sodium Potassium Carbon Dioxide BUN Creatinine Glucose POC Glucose (mg/dL) 280 H 261 H Hemoglobin A1c Alkaline Phosphatase Total Protein Albumin Procalcitonin Urine Appearance Urine Protein Urine Blood Ur Leukocyte Esterase Urine RBC Urine WBC Urine WBC Clumps Ur Squamous Epith Cells Amorphous Sediment Urine Bacteria Urine Mucus - Diagnostic Findings Chest x-ray: image reviewed CT scan - chest: image reviewed Assessment and Plan Plan: 1 CHF with diastolic heart failure 2 bilateral pleural effusion secondary to above, not causing any significant respiratory distress currently on oxygen at 4 L per minute nasal cannula 3 previous history of DVT of lower extremity currently on anticoagulation with a therapeutic PT/INR 4 morbid obesity with a BMI of 44 5 bilateral heel ulcers post-debridement of the left heel ulcer measuring 4x4 cm cultures of been sent and the patient is currently covered with antibiotics 6 history of atrial fibrillation 7 hypertension 8 hyperlipidemia 9 osteoarthritis 10 stage II kidney disease, chronic 11 obstructive sleep apnea noncompliant to CPAP therapy unable to use 12 decubitus ulceration involving the coccyx 13 previous history of UTI with sepsis and the patient suffers from incontinence of the urine 14 gout 15 hypothyroidism 16 history of vertigo 17 rheumatoid arthritis 18 gout 19 mild leukocytosis 20 chronic metabolic alkalosis probably related to chronic hypercapnic respir atory failure Plan Continue IV cefazolin Continue IV Lasix May discontinue IV Solu-Medrol Lantus insulin for blood sugar control along with a sinus care coverage Outpatient medications were reviewed Chest x-ray has been reviewed and the patient has moderate size pleural effusion. No need for any thoracentesis. Encourage diuretics. Monitor electrolytes and renal function.
[2019-07-11 20:55] LABS: Glucose,Whole Blood 303 mg/dL (75-99)
[2019-07-11] MEDS: INSULIN DETEMIR (LEVEMIR) 100 UNIT/ML SYR SQ SCH (21:00)
[2019-07-11] MEDS: ATORVASTATIN 40 MG TAB PO SCH (21:00)
[2019-07-12] MEDS: methylPREDNISolone SOD SUCCI 125 MG/2 ML VIAL IV SCH ×2 (00:26→05:55)
[2019-07-12] MEDS: IPRATROPIUM-ALBUTEROL 3 ML NEB INHALATION SCH ×4 (04:39→16:27)
--- NOTE | 2019-07-12 05:16 | PN ---
PROGRESS NOTE DATE OF SERVICE: 07/11/2019. REASON FOR FOLLOWUP: Bilateral heel pressure ulcer with secondary cellulitis. INTERVAL HISTORY: The patient is currently afebrile. The patient did have bedside debridement of the left heel by Dr. Carmichael. The patient tolerated the procedure. Denies having any chest pain or shortness of breath or cough. No abdominal pain or diarrhea. PHYSICAL EXAMINATION: On examination, blood pressure 101/71 with a pulse of 121, temperature of 98.4. She is 93% on 4 L nasal cannula. General description is an elderly female lying in bed in no distress. RESPIRATORY SYSTEM: Unlabored breathing, clear to auscultation anteriorly. HEART: S1, S2. Regular rate and rhythm. ABDOMEN: Soft, no tenderness. Left heel did have some good granulation tissue after debridement, surrounding swelling but no redness, no drainage. LABS: Hemoglobin is 11, white count 16.4. BUN of 58, creatinine is 1.10. Left heel cultures mostly with anaerobics. DIAGNOSTIC IMPRESSION AND PLAN: Patient with bilateral heel pressure ulcer left greater than right. Culture with anaerobic gram-negative bacilli. The patient is on cefazolin, Flagyl will be added. Local care to continue with [facility], keep the area off the pressure. Continue supportive care. MMODL / IJN: [id number] /
[2019-07-12] MEDS: LEVOTHYROXINE 88 MCG TAB PO SCH (05:55)
[2019-07-12 07:07] LABS: Glucose,Whole Blood 286 mg/dL (75-99)
[2019-07-12] MEDS: FUROSEMIDE 10 MG/ML 4 ML VIAL IV SCH (08:00)
[2019-07-12] MEDS: METOPROLOL TARTRATE 50 MG TAB PO SCH (08:00)
[2019-07-12] MEDS: ISOSORBIDE MONONITRATE ER 30 MG TAB.ER.24H PO SCH (08:00)
[2019-07-12] MEDS: INSULIN ASPART (NovoLOG) 100 UNIT/ML VIAL SQ SCH ×2 (08:01→12:40)
[2019-07-12] MEDS: POTASSIUM CHLORIDE ER 20 MEQ TAB.ER PO SCH (08:01)
[2019-07-12 09:14] LABS: Basophils % (A) 0 %; Eosinophils % (A) 0 %; HCT 37.9 % (34.0-46.0); HGB 11.4 gm/dL (11.4-16.0); Hypochromasia Moderate; Lymphocytes # (A) 0.6 k/uL (1.0-4.8); Lymphocytes % (A) 3 %; MCH 29.7 pg (25.0-35.0); MCV 99.1 fL (80.0-100.0); Macrocytosis Slight; Mean Platelet Volume 9.4; Monocytes # (A) 0.3 k/uL (0-1.0); Monocytes % (A) 2 %; Neutrophils # (A) 16.5 k/uL (1.3-7.7); Neutrophils % (A) 95 %; Platelet Count 256 k/uL (150-450); RBC 3.83 m/uL (3.80-5.40); RDW 15.1 % (11.5-15.5); WBC 17.5 k/uL (3.8-10.6)
[2019-07-12 09:20] LABS: INR 3.8 (<1.2); Prothrombin Time 37.3 sec (9.0-12.0)
[2019-07-12 09:36] LABS: Albumin 3.7 g/dL (3.5-5.0); Calcium 9.9 mg/dL (8.4-10.2); Potassium 3.8 mmol/L (3.5-5.1); Total Bilirubin 0.5 mg/dL (0.2-1.3); Total Protein 6.6 g/dL (6.3-8.2)
[2019-07-12] MEDS ORDERED: PANTOPRAZOLE 40 MG/10 ML VIAL IVP SCH (10:15)
[2019-07-12] MEDS ORDERED: INSULIN DETEMIR (LEVEMIR) 100 UNIT/ML SYR SQ ONE (10:30)
--- NOTE | 2019-07-12 10:32 | P.DS ---
Providers Date of admission: 07/06/19 12:23 Expected date of discharge: 07/12/19 Attending physician: Dominick Rosen MD Consults: 07/06/19 11:07 Consult Physician Routine Consulting Provider: Melly Yap Consult Reason/Comments: wound Do you want consulting provider notified?: Yes 07/10/19 13:07 Consult Physician Routine Consulting Provider: Chris Arnold Consult Reason/Comments: chf exacerbation, co2 39 Do you want consulting provider notified?: Yes 07/10/19 17:04 Consult Physician Routine Consulting Provider: Myron Carmichael Consult Reason/Comments: possible wound debridement of left heel ulcer. Do you want consulting provider notified?: Yes Primary care physician: [facility] Course: (1) Pressure injury of both heels, stage 3, status post I&D of left heel with deep tissue biopsies obtained, pending Current Visit: Yes Status: Acute Code(s): L89.613 - PRESSURE ULCER OF RIGHT HEEL, STAGE 3; L89.623 - PRESSURE ULCER OF LEFT HEEL, STAGE 3 SNOMED Code(s): 730322705 (2) History of DVT (deep vein thrombosis) Current Visit: Yes Status: Acute Code(s): Z86.718 - PERSONAL HISTORY OF OTHER VENOUS THROMBOSIS AND EMBOLISM SNOMED Code(s): 885818629 (3) Paroxysmal A-fib Current Visit: Yes Status: Acute Code(s): I48.0 - PAROXYSMAL ATRIAL FIBRILLATION SNOMED Code(s): 498151674 (4) Gangrene Current Visit: Yes Status: Acute Code(s): I96 - GANGRENE, NOT ELSEWHERE CLASSIFIED SNOMED Code(s): 645694485 (5) acute on Chronic diastolic CHF (congestive heart failure), NYHA class 3 Current Visit: Yes Status: Acute Code(s): I50.32 - CHRONIC DIASTOLIC (CONGESTIVE) HEART FAILURE SNOMED Code(s): 360455957 (6) Cellulitis of left lower extremity Current Visit: No Status: Acute Code(s): L03.116 - CELLULITIS OF LEFT LOWER LIMB SNOMED Code(s): 921714777 (7) Diabetes, hemoglobin A1c 6.1 Current Visit: No Status: Acute Code(s): E11.9 - TYPE 2 DIABETES MELLITUS WITHOUT COMPLICATIONS SNOMED Code(s): 77394865 (8) acute on chronic renal failure, stage III (9) anemia of chronic disease (10) chronic hypoxic , hypercapnic respiratory failure (11) bilateral pleural effusion secondary to CHF (12) morbid obesity, BMI 44 Hospital course: Tamar Dominguez is an 79-year-old female with PMH of lymphedema, COPD, hx DVT who presented to the ED after being seen at the wound center and was recommended to present to the ED for worsening wound. Pt was noted to have increased pain and drainage to the bilateral heels left worse then right. Pt states her heels have been very painful for a few weeks. She states she has been staying off her feet. On presentation pt was afebrile, WBC 15.8 creatinine 1.27. XR foot showed demineralization with diffuse subcutaneous edema. Pt was been started on vancomycin and admitted to medicine with ID consult. 07/08/2019 15 on IV antibiotics/Wound Care as per infectious disease. No MRSA identified per wound cultures. Bone scan ordered. Afebrile. Denies chest pain , palpitations or shortness of breath. Denies nausea vomiting or diarrhea. Denies abdominal pain. Blood sugars controlled. INR 1.1. 07/11/2019 bone scan reported negative for osteomyelitis.wound culture have reported anaerobic gram-negative bacilli, anaerobic gram-negative bacilli #2 and gram-positive cocci .maintained on cefazolin. Afebrile, normal WBC .evaluated by vascular surgery, patient is scheduled for left heel ulcer debridement. Pain controlled. INR 3.3. Potassium 3.3, receiving potassium supplements. Denies chest pain, palpitations or shortness of breath. Complains of mild sinus congestion, nonproductive cough, mild sore throat. Evaluated by pulmonary, infectious disease, vascular surgery.I&D completed of left heel with deep tissue biopsies obtained, tolerated procedure well. Significant clinical improvement. Patient is being discharged to [facility] subacute rehab in a stable condition with guarded prognosis, pending infectious disease and vascular surgery clearance. Exam General: well nourished obese female in NAD. HENT: normocephalic, mucus membranes moist Lungs: normal respiratory effort, bilateral bases diminished, no wheezes or rales CV: Regular rate and rhythm, no murmur. Peripheral pulses 2+. Bilateral LE with + edema Abdomen: soft, nondistended, no organomegaly, positive bowel sounds Skin: Bilateral lower extremitie heel wounds, Myles wrapped, clean dry and intact, toes warm Neuro: A&Ox3, normal mood and affect Microbiology 07/11/19 12:25 Foot - Left Gram Stain - Preliminary 07/11/19 12:25 Foot - Left Wound Culture - Preliminary Gram Neg Bacilli 07/11/19 12:25 Foot - Left Anaerobic Culture - Preliminary 07/06/19 11:18 Blood Blood Culture - Preliminary No Growth after 120 hours 07/06/19 11:18 Foot - Left Anaerobic Culture - Final Anaerobic Gm Negative Bacilli Anaerobic Gm Negative Bacilli#2 Gram Positive Cocci Isolated 07/06/19 11:18 Foot - Left Gram Stain - Final 07/06/19 11:18 Foot - Left Wound Culture - Final Patient Condition at Discharge: Stable Plan - Discharge Summary Discharge Rx Participant: No New Discharge Prescriptions: New Benzocaine/Menthol Lozeng [Cepacol lozenge] 1 each MUCOUS MEM Q6HR PRN lozenge PRN Reason: Sore Throat Ipratropium-Albuterol Nebulize [Duoneb 0.5 mg-3 mg/3 ml Soln] 3 ml INHALATION RT-Q4H ml INSULIN LISPRO (HumaLOG) [humaLOG] 0 unit SQ ACHS #1 vial Insulin Detemir (Levemir) [Levemir] 30 unit SQ HS syr Metoprolol Tartrate [Lopressor] 50 mg PO BID tab predniSONE 10 mg PO DIRECTED #30 tab Pantoprazole Sodium [Protonix] 40 mg PO DAILY #30 tablet.dr Continue traMADol HCL [Ultram] 50 mg PO QID PRN #12 tab PRN Reason: Pain No Action Isosorbide Mononitrate ER [Imdur] 30 mg PO DAILY Ubidecarenone [Co Q-10] 200 mg PO DAILY Potassium Chloride ER [K-Dur 20] 40 meq PO DAILY Atorvastatin [Lipitor] 40 mg PO HS Allopurinol [Zyloprim] 300 mg PO DAILY Liothyronine Sodium [Cytomel] 5 mcg PO DAILY Docusate [Colace] 100 mg PO DAILY cap Acetaminophen Tab [Tylenol] 650 mg PO Q4HR PRN tab PRN Reason: Fever and/ or MILD Pain Levothyroxine Sodium [Synthroid] 88 mcg PO DAILY Metolazone [Zaroxolyn] 5 mg PO Q7D Meclizine [Antivert] 12.5 mg PO TID Furosemide [Lasix] 40 mg PO TID Ipratropium-Albuterol Nebulize [Duoneb 0.5 mg-3 mg/3 ml Soln] 3 ml INHALATION QID PRN PRN Reason: Shortness Of Breath Discharge Medication List Isosorbide Mononitrate ER [Imdur] 30 mg PO DAILY 01/16/17 [History] Potassium Chloride ER [K-Dur 20] 40 meq PO DAILY 03/22/18 [History] Ubidecarenone [Co Q-10] 200 mg PO DAILY 03/22/18 [History] Allopurinol [Zyloprim] 300 mg PO DAILY 02/10/19 [History] Atorvastatin [Lipitor] 40 mg PO HS 02/10/19 [History] Liothyronine Sodium [Cytomel] 5 mcg PO DAILY 02/10/19 [History] Acetaminophen Tab [Tylenol] 650 mg PO Q4HR PRN tab 02/21/19 [Rx] Docusate [Colace] 100 mg PO DAILY cap 02/21/19 [Rx] Furosemide [Lasix] 40 mg PO TID 07/06/19 [History] Ipratropium-Albuterol Nebulize [Duoneb 0.5 mg-3 mg/3 ml Soln] 3 ml INHALATION QID PRN 07/06/19 [History] Levothyroxine Sodium [Synthroid] 88 mcg PO DAILY 07/06/19 [History] Meclizine [Antivert] 12.5 mg PO TID 07/06/19 [History] Metolazone [Zaroxolyn] 5 mg PO Q7D 07/06/19 [History] Benzocaine/Menthol Lozeng [Cepacol lozenge] 1 each MUCOUS MEM Q6HR PRN lozenge 07/12/19 [Rx] INSULIN LISPRO (HumaLOG) [humaLOG] 0 unit SQ ACHS #1 vial 07/12/19 [Rx] Insulin Detemir (Levemir) [Levemir] 30 unit SQ HS syr 07/12/19 [Rx] Ipratropium-Albuterol Nebulize [Duoneb 0.5 mg-3 mg/3 ml Soln] 3 ml INHALATION RT-Q4H ml 07/12/19 [Rx] Metoprolol Tartrate [Lopressor] 50 mg PO BID tab 07/12/19 [Rx] Pantoprazole Sodium [Protonix] 40 mg PO DAILY #30 tablet. 07/12/19 [Rx] predniSONE 10 mg PO DIRECTED #30 tab 07/12/19 [Rx] traMADol HCL [Ultram] 50 mg PO QID PRN #12 tab 07/12/19 [Rx] Follow up Appointment(s)/Referral(s): [facility], [NON-STAFF] - Linnea Alonso DO [Primary Care Provider] - 1 Week (After DC from subacute rehab) Patient Instructions/Handouts: Cellulitis (DC), Chronic Wounds (DC) Activity/Diet/Wound Care/Special Instructions: [place] antibiotics/Wound Care pending as per ID/vascular surgery. DC clearance pending from ID/vascular surgery Coumadin on hold, INR 3.8, hold Coumadin tonight, repeat PT/INR in a.m., further Coumadin dosing as per PCP. Diet: Consistent carb Nonweightbearing of the left lower extremity CBC, BMP PT,INR daily Fax final culture results to infectious disease Discharge Disposition: TRANSFER TO SNF/ECF
--- NOTE | 2019-07-12 10:33 | P.PN ---
Subjective Progress Note Date: 07/12/19 79-year-old morbidly obese female patient with a BMI of 44 no history of COPD and previous history of DVT, diastolic heart failure, diabetes mellitus and pressure ulcer of the heels, came into the hospital because of wounds in her lower extremities which have been painful and she has also noted drainage to the bilateral heels worse on the left. He was afebrile with a white cell count of 15.8, admission a creatinine of 1.2. X-ray of the foot showed demineralization with diffuse subcutaneous emphysema. The patient was started on vancomycin and ID consultation was requested. Bone scan came back negative for osteomyelitis. Wound culture was positive for anaerobic gram-negative bacteria and gram- positive cocci. The CAT scan of the chest was done and the patient was found to have bilateral pleural effusion and atelectatic changes in lung bases bilaterally. No suspicious mediastinal mass. 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 No mediastinal lymphadenopathy. No pericardial effusion. There is some elevation of the right hemidiaphragm. There are 3 cm low-density left adrenal lesion was also seen. The patient also underwent debridement of the wound to the left. There was measuring 4 x 4 CM. All of the necrotic tissue and the devitalized tissue was removed. The wound was irrigated with saline and medical management was applied. A pressure dressing was also applied. On 07/12/2019 the patient's overall pulmonary status is essentially the same. She is still being diuresis with IV Lasix. Limited improvement in the volume status. She is on oxygen at 4 L. No signs of any significant respiratory distress at rest. She is essentially sedentary. Laying down in bed most of the time. He was having completed and the patient is on IV Kefzol. IV Solu Medrol is still on. We have recommended to discontinue the IV Solu-Medrol. She is still on IV Lasix and a dose of 40 mg every 12 hours. Objective - Vital Signs Vital signs: Vital Signs Temp 98.0 F 07/12/19 05:15 Pulse 112 H 07/12/19 08:16 Resp 22 07/12/19 05:15 BP 140/69 07/12/19 05:15 Pulse Ox 91 L 07/12/19 05:15 Intake & Output 07/11/19 07/12/19 07/12/19 18:59 06:59 18:59 Intake Total 540 Output Total 1050 500 Balance -510 -500 Intake: Oral 540 Output: Urine 1050 500 Other: Voiding Method Incontinent Incontinent Incontinent # Voids 500 1 # Bowel Movements 0 - Exam Gen. appearance obese, comfortable likely distress BMI is 44 Head exam was generally normal. There was no scleral icterus or corneal arcus. Mucous membranes were moist. Neck was supple and without jugular venous distension, thyromegaly, or carotid bruits. Carotids were easily palpable bilaterally. There was no adenopathy. Lungs sounds are diminished in the lower lung whitt bilaterally along with some dullness to percussion. No wheezes or rhonchi. Cardiac exam revealed the PMI to be normally situated and sized. The rhythm was regular and no extrasystoles were noted during several minutes of auscultation. The first and second heart sounds were normal and physiologic splitting of the second heart sound was noted. There were no murmurs, rubs, clicks, or gallops. Abdominal exam revealed normal bowel sounds. The abdomen was soft, non-tender, and without masses, organomegaly, or appreciable enlargement of the abdominal aorta. Organs cannot be accurately palpated as patient is obese extremities revealed +1-2 pitting edema addition to diminished pulses in lower e xtremities bilaterally and the patient has a 4 x 4 centimeter left heel ulcer that was debrided today and another 1 cm ulcer with central dilation tissue on the right neurologically awake and alert and there is no focal neurological deficit there is motor weakness lower extremities bilaterally. - Labs CBC & Chem 7: 07/12/19 08:23 07/12/19 08:23 Labs: Abnormal Lab Results - Last 24 Hours (Table) 07/11/19 07/11/19 07/11/19 Range/Units 11:13 16:43 20:54 WBC (3.8-10.6) k/uL MCHC (31.0-37.0) g/dL Neutrophils # (1.3-7.7) k/uL Lymphocytes # (1.0-4.8) k/uL PT (9.0-12.0) sec INR (<1.2) Carbon Dioxide (22-30) mmol/L BUN (7-17) mg/dL Creatinine (0.52-1.04) mg/dL Glucose (74-99) mg/dL POC Glucose (mg/dL) 280 H 261 H 303 H (75-99) mg/dL 07/12/19 07/12/19 07/12/19 Range/Units 07:04 08:23 08:23 WBC 17.5 H (3.8-10.6) k/uL MCHC 30.0 L (31.0-37.0) g/dL Neutrophils # 16.5 H (1.3-7.7) k/uL Lymphocytes # 0.6 L (1.0-4.8) k/uL PT 37.3 H (9.0-12.0) sec INR 3.8 H (<1.2) Carbon Dioxide (22-30) mmol/L BUN (7-17) mg/dL Creatinine (0.52-1.04) mg/dL Glucose (74-99) mg/dL POC Glucose (mg/dL) 286 H (75-99) mg/dL 07/12/19 Range/Units 08:23 WBC (3.8-10.6) k/uL MCHC (31.0-37.0) g/dL Neutrophils # (1.3-7.7) k/uL Lymphocytes # (1.0-4.8) k/uL PT (9.0-12.0) sec INR (<1.2) Carbon Dioxide 40 H (22-30) mmol/L BUN 67 H (7-17) mg/dL Creatinine 1.14 H (0.52-1.04) mg/dL Glucose 253 H (74-99) mg/dL POC Glucose (mg/dL) (75-99) mg/dL Microbiology - Last 24 Hours (Table) 07/11/19 12:25 Gram Stain - Preliminary Foot - Left Wound Culture - Preliminary Gram Neg Bacilli 07/11/19 12:25 Anaerobic Culture - Preliminary Foot - Left 07/06/19 11:18 Blood Culture - Preliminary Blood No Growth after 120 hours 07/06/19 11:18 Anaerobic Culture - Final Foot - Left Anaerobic Gm Negative Bacilli Anaerobic Gm Negative Bacilli#2 Gram Positive Cocci Isolated Assessment and Plan Plan: 1 CHF with diastolic heart failure, stable and unchanged 2 bilateral pleural effusion secondary to above, not causing any significant respiratory distress currently on oxygen at 4 L per minute nasal cannula, stable and unchanged 3 previous history of DVT of lower extremity currently on anticoagulation with a therapeutic PT/INR 4 morbid obesity with a BMI of 44 5 bilateral heel ulcers post-debridement of the left heel ulcer measuring 4x4 cm cultures of been sent and the patient is currently covered with antibiotics 6 history of atrial fibrillation 7 hypertension 8 hyperlipidemia 9 osteoarthritis 10 stage II kidney disease, chronic 11 obstructive sleep apnea noncompliant to CPAP therapy unable to use 12 decubitus ulceration involving the coccyx 13 previous history of UTI with sepsis and the patient suffers from incontinence of the urine 14 gout 15 hypothyroidism 16 history of vertigo 17 rheumatoid arthritis 18 gout 19 mild leukocytosis 20 chronic metabolic alkalosis probably related to chronic hypercapnic r espiratory failure Plan Continue IV cefazolin Continue IV Lasix Discontinue IV Solu-Medrol Lantus insulin for blood sugar control along with a sinus care coverage Thoracentesis only if there is any worsening shortness of breath. Discharge planning is in progress, possible discharge to [facility] per medicine.
[2019-07-12] MEDS ORDERED: PANTOPRAZOLE SODIUM 40 MG GRANULE PKT PO SCH (11:00)
[2019-07-12] MEDS ORDERED: CEFEPIME 2 GM in SODIUM CHLORIDE 0.9% 100 ML IVPB SCH (12:00)
[2019-07-12 12:10] LABS: Glucose,Whole Blood 287 mg/dL (75-99)
[2019-07-12 12:14] VITALS: BMI 44.0
[2019-07-12 15:00] VITALS: BP 98/63; PULSE 107; RESP 20; TEMP 98.2
[2019-07-12] MEDS ORDERED: WARFARIN 0.5 MG TAB PO ONE (18:00)
--- NOTE | 2019-07-12 20:45 | PN ---
PROGRESS NOTE DATE OF SERVICE: 07/12/2019 REASON FOR FOLLOWUP: Bilateral heel pressure ulcers with cellulitis. INTERVAL HISTORY: The patient was seen on rounds early this afternoon. The patient has been afebrile, has been breathing comfortably. Complaining of some pain to the left heel area. No nausea, no vomiting. No abdominal pain or diarrhea. PHYSICAL EXAMINATION: Blood pressure 98/63 with a pulse of 108, temperature 98.2. She is 94% on 4 L nasal cannula. General description is an elderly female lying in bed in no distress. RESPIRATORY SYSTEM: Unlabored breathing. Clear to auscultation anteriorly. HEART: S1, S2. Regular rate and rhythm. ABDOMEN: Soft. No tenderness. Left heel is currently dressed up. No obvious drainage on the dressing. LABS: Hemoglobin 11.4, white count 17.5. BUN of 67, creatinine 1.14. The cultures done yesterday are showing Gram-negative bacilli. DIAGNOSTIC IMPRESSION AND PLAN: Patient with left heel pressure ulcer with no evidence of any osteomyelitis from the bone scan, status post debridement yesterday. Culture now showing Gram-negative bacilli. Antibiotic switched to cefepime 2 grams q.12 and I recommended waiting for the culture to finalize. However, the [facility] As the patient did get a midline, she will continue cefepime 2 grams q.12 along with oral Flagyl 500 mg p.o. q.8 hours with a plan for possible adjustment of medication if needed. Questions and concerns were answered. Care was discussed in detail with the nurse practitioner for the admitting team. LUAN / JORDYN: [id number] /
== END 2019-07-12 17:06 | DRG 264 ==
LOC: EC 10:44 → 6NMEDSUR 12:23
PROVIDERS: ADMIT Family Medicine; ATTEND Family Medicine
PROC: 5A09457 Assistance with Respiratory Ventilation, 24-96 Consecutive Hours, Continuous Positive Airway Pressure (ICD-10-PCS; 2019-07-10)
PROC: 05HF33Z Insertion of Infusion Device into Left Cephalic Vein, Percutaneous Approach (ICD-10-PCS; 2019-07-11)
PROC: 0JBR0ZZ Excision of Left Foot Subcutaneous Tissue and Fascia, Open Approach (ICD-10-PCS; principal; 2019-07-11 10:45)
PROC: 05HF33Z Insertion of Infusion Device into Left Cephalic Vein, Percutaneous Approach (ICD-10-PCS; 2019-07-12)
DX: E11.52 Type 2 diabetes mellitus with diabetic peripheral angiopathy with gangrene (principal); L89.623 Pressure ulcer of left heel, stage 3; I50.33 Acute on chronic diastolic (congestive) heart failure; I96 Gangrene, not elsewhere classified; J96.11 Chronic respiratory failure with hypoxia; J96.12 Chronic respiratory failure with hypercapnia; N17.9 Acute kidney failure, unspecified; I13.0 Hypertensive heart and chronic kidney disease with heart failure and stage 1 through stage 4 chronic kidney disease, or unspecified chronic kidney disease; L03.116 Cellulitis of left lower limb; N18.4 Chronic kidney disease, stage 4 (severe); Z68.41 Body mass index [BMI] 40.0-44.9, adult; E87.3 Alkalosis; I27.20 Pulmonary hypertension, unspecified; E66.01 Morbid (severe) obesity due to excess calories; L89.612 Pressure ulcer of right heel, stage 2; D63.8 Anemia in other chronic diseases classified elsewhere; E11.22 Type 2 diabetes mellitus with diabetic chronic kidney disease; E11.621 Type 2 diabetes mellitus with foot ulcer; E11.40 Type 2 diabetes mellitus with diabetic neuropathy, unspecified; G47.33 Obstructive sleep apnea (adult) (pediatric); I48.0 Paroxysmal atrial fibrillation; E87.6 Hypokalemia; E78.5 Hyperlipidemia, unspecified; J44.9 Chronic obstructive pulmonary disease, unspecified; E27.9 Disorder of adrenal gland, unspecified; E03.9 Hypothyroidism, unspecified; E04.9 Nontoxic goiter, unspecified; R53.81 Other malaise; I89.0 Lymphedema, not elsewhere classified; I87.8 Other specified disorders of veins; M06.9 Rheumatoid arthritis, unspecified; R32 Unspecified urinary incontinence; K21.9 Gastro-esophageal reflux disease without esophagitis; M19.90 Unspecified osteoarthritis, unspecified site; M10.9 Gout, unspecified; Z99.81 Dependence on supplemental oxygen; Z79.890 Hormone replacement therapy; Z79.01 Long term (current) use of anticoagulants; Z79.899 Other long term (current) drug therapy; Z71.3 Dietary counseling and surveillance; Z87.891 Personal history of nicotine dependence; Z87.01 Personal history of pneumonia (recurrent); Z86.19 Personal history of other infectious and parasitic diseases; Z86.718 Personal history of other venous thrombosis and embolism; Z90.710 Acquired absence of both cervix and uterus; Z96.651 Presence of right artificial knee joint; Z86.69 Personal history of other diseases of the nervous system and sense organs; Z98.890 Other specified postprocedural states; Z98.42 Cataract extraction status, left eye; Z98.41 Cataract extraction status, right eye; Z96.1 Presence of intraocular lens; Z88.2 Allergy status to sulfonamides; Z88.7 Allergy status to serum and vaccine; Z91.048 Other nonmedicinal substance allergy status; Z82.49 Family history of ischemic heart disease and other diseases of the circulatory system; Z84.1 Family history of disorders of kidney and ureter
CPT/HCPCS: 36410; 36415; 71045; 71046; 71270; 76536; 76937; 78315; 80048; 80053; 81001; 82140; 82565; 82803; 83036; 83605; 83735; 83880; 84132; 84145; 84443; 85025; 85610; 85730; 87040; 87070; 87075; 87077; 87186; 87205; 87502; 93005; 94640; 94660; 94760; 96365; 96367; 99285

== ENCOUNTER 2019-07-13 15:24 | Inpatient (IN) | payer MEDICARE ==
--- NOTE | 2019-07-13 15:38 | ED ---
SOB HPI - General Chief Complaint: Shortness of Breath Stated Complaint: SOB Time Seen by Provider: 07/13/19 15:29 Source: EMS, RN notes reviewed, old records reviewed Mode of arrival: EMS Limitations: no limitations - History of Present Illness Initial Comments: This 79-year-old female with a history of stage III renal disease diabetes bilateral heel infections DVT and diastolic CHF who was just discharged yesterday and is brought in from alf today because of shortness of breath and some altered mental status. The patient had markedly diminished breath sounds with shortness of breath she had a respiratory rate of 38 demonstrate some altered mental status and some confusion. Patient's CO2 was 57 a capnography. There was some improvement after nebulizer treatment was instituted. Patient sounded wet per paramedics. MD Complaint: shortness of breath - Related Data Home Medications Medication Instructions Recorded Confirmed Isosorbide Mononitrate ER [Imdur] 30 mg PO DAILY 01/16/17 07/06/19 Potassium Chloride ER [K-Dur 20] 40 meq PO DAILY 03/22/18 07/06/19 Ubidecarenone [Co Q-10] 200 mg PO DAILY 03/22/18 07/06/19 Allopurinol [Zyloprim] 300 mg PO DAILY 02/10/19 07/06/19 Atorvastatin [Lipitor] 40 mg PO HS 02/10/19 07/06/19 Liothyronine Sodium [Cytomel] 5 mcg PO DAILY 02/10/19 07/06/19 Furosemide [Lasix] 40 mg PO TID 07/06/19 07/06/19 Levothyroxine Sodium [Synthroid] 88 mcg PO DAILY 07/06/19 07/06/19 Meclizine [Antivert] 12.5 mg PO TID 07/06/19 07/06/19 Metolazone [Zaroxolyn] 5 mg PO Q7D 07/06/19 07/06/19 Previous Rx's Medication Instructions Recorded Acetaminophen Tab [Tylenol] 650 mg PO Q4HR PRN tab 02/21/19 Docusate [Colace] 100 mg PO DAILY cap 02/21/19 Benzocaine/Menthol Lozeng [Cepacol 1 each MUCOUS MEM Q6HR PRN lozenge 07/12/19 lozenge] Cefepime HCl [Maxipime] 2 gm IV Q12H 14 Days #28 vial 07/12/19 INSULIN LISPRO (HumaLOG) [humaLOG] 0 unit SQ ACHS #1 vial 07/12/19 Insulin Detemir (Levemir) [Levemir] 30 unit SQ HS syr 07/12/19 Ipratropium-Albuterol Nebulize 3 ml INHALATION RT-Q4H ml 07/12/19 [Duoneb 0.5 mg-3 mg/3 ml Soln] Ipratropium-Albuterol Nebulize 3 ml INHALATION RT-QID PRN ml 07/12/19 [Duoneb 0.5 mg-3 mg/3 ml Soln] Metoprolol Tartrate [Lopressor] 50 mg PO BID tab 07/12/19 Pantoprazole Sodium [Protonix] 40 mg PO DAILY #30 tablet. 07/12/19 metroNIDAZOLE [Flagyl] 500 mg PO Q8HR #42 tab 07/12/19 predniSONE 10 mg PO DIRECTED #30 tab 07/12/19 traMADol HCL [Ultram] 50 mg PO QID PRN #12 tab 07/12/19 Allergies Allergy/AdvReac Type Severity Reaction Status Date / Time iron Allergy Rash/Hives Verified 02/10/19 07:49 Sulfa (Sulfonamide Allergy Rash/Hives Verified 02/10/19 07:49 Antibiotics) Tetanus Vaccines and Toxoid Allergy Swelling Verified 02/10/19 07:49 Review of Systems ROS Statement: Those systems with pertinent positive or pertinent negative responses have been documented in the HPI. ROS Other: All systems not noted in ROS Statement are negative. Limitations: ROS unobtainable due to patients medical condition Past Medical History Past Medical History: Atrial Fibrillation, Heart Failure, COPD, Diabetes Mellitus, Deep Vein Thrombosis (DVT), GERD/Reflux, Hyperlipidemia, Hypertension, Osteoarthritis (OA), Pneumonia, Renal Disease, Respiratory Disorder, Rheumatoid Arthritis (RA), Sleep Apnea/CPAP/BIPAP, Thyroid Disorder Additional Past Medical History / Comment(s): Chronic respiratory failure, home O2 at 2L/NC, possible mild pulmonary HTN, JOSR but no longer uses her device, lower extremity edema/redness/cellulitis-legs currently wrapped by son-states blisters on both legs and leakage from L leg, pt states she currently has a decubitus on her coccyx, NIDDM type II, neuropathy bilateral hands/feet, CKD stage III, pt states she has had "bleeding in the kidneys" in the past, anemia, UTI with sepsis, incontinent of urine and occasionally stool, migraines, gout, hypothyroid, vertigo. History of Any Multi-Drug Resistant Organisms: None Reported Past Surgical History: Heart Catheterization, Hysterectomy, Joint Replacement, Orthopedic Surgery Additional Past Surgical History / Comment(s): Cardiac cath 2017-treated medically, R total knee replacement, L foot heel spur, sanjana cataracts with lens implants, cystoscopy, EGD, colonoscopy. Past Anesthesia/Blood Transfusion Reactions: No Reported Reaction Past Psychological History: No Psychological Hx Reported Smoking Status: Former smoker Past Alcohol Use History: None Reported Past Drug Use History: None Reported - Past Family History Mother Family Medical History: Renal Disease Father Family Medical History: Coronary Artery Disease (CAD) General Exam - General Exam Comments Initial Comments: Is a well-developed morbidly obese female who is awake alert in respiratory distress with a nebulizer and BiPAP at the time of arrival. Limitations: no limitations General appearance: alert, in distress Head exam: Present: atraumatic, normocephalic, normal inspection Eye exam: Present: normal appearance, PERRL, EOMI. Absent: scleral icterus, conjunctival injection, periorbital swelling ENT exam: Present: normal exam, mucous membranes moist Neck exam: Present: normal inspection, full ROM, other (No stridor JVD or bruits). Absent: tenderness, meningismus, lymphadenopathy Respiratory exam: Present: respiratory distress, accessory muscle use, decreased breath sounds. Absent: wheezes, rales, rhonchi, stridor Cardiovascular Exam: Present: regular rate, normal rhythm, normal heart sounds. Absent: systolic murmur, diastolic murmur, rubs, gallop, clicks GI/Abdominal exam: Present: soft, normal bowel sounds. Absent: distended, tenderness, guarding, rebound, rigid Extremities exam: Present: full ROM, normal capillary refill, pedal edema, other (With chronic changes seen to both feet). Absent: tenderness, joint swelling, calf tenderness Back exam: Present: normal inspection Neurological exam: Present: alert, oriented X3, CN II-XII intact Psychiatric exam: Present: normal affect, normal mood Skin exam: Present: warm, dry, intact, normal color. Absent: rash Course Vital Signs 07/13/19 07/13/19 15:32 15:46 Temperature 97.2 F L Pulse Rate 141 H Respiratory 30 H 20 Rate Blood Pressure 123/91 O2 Sat by Pulse 98 Oximetry - Reevaluation(s) Reevaluation #1: 07/13/19 16:42 86 started getting some improvement after the initial treatment was rendered. She remains on BiPAP. Medical Decision Making - Medical Decision Making Patient is feeling slightly better she still demonstrates dyspnea. She is on BiPAP and responding to this. The presentation is consistent with acute CHF as well as COPD exacerbation. He will be admitted I did discuss case with Dr. Rosen. Radiology and pulmonary medicine will be consulted. - Lab Data Result diagrams: 07/13/19 15:48 07/13/19 15:48 Lab Results 07/13/19 07/13/19 07/13/19 Range/Units 15:48 15:48 15:48 WBC 15.0 H (3.8-10.6) k/uL RBC 3.60 L (3.80-5.40) m/uL Hgb 10.8 L (11.4-16.0) gm/dL Hct 36.3 (34.0-46.0) % MCV 100.6 H (80.0-100.0) fL MCH 30.1 (25.0-35.0) pg MCHC 29.9 L (31.0-37.0) g/dL RDW 14.9 (11.5-15.5) % Plt Count 246 (150-450) k/uL Neutrophils % 92 % Lymphocytes % 4 % Monocytes % 3 % Eosinophils % 0 % Basophils % 0 % Neutrophils # 13.8 H (1.3-7.7) k/uL Lymphocytes # 0.6 L (1.0-4.8) k/uL Monocytes # 0.4 (0-1.0) k/uL Eosinophils # 0.0 (0-0.7) k/uL Basophils # 0.0 (0-0.2) k/uL Hypochromasia Marked Macrocytosis Slight PT (9.0-12.0) sec INR (<1.2) APTT (22.0-30.0) sec Sodium 146 H (137-145) mmol/L Potassium 4.2 (3.5-5.1) mmol/L Chloride 102 (98-107) mmol/L Carbon Dioxide 38 H (22-30) mmol/L Anion Gap 6 mmol/L BUN 69 H (7-17) mg/dL Creatinine 1.20 H (0.52-1.04) mg/dL Est GFR (CKD-EPI)AfAm 49 (>60 ml/min/1.73 sqM) Est GFR (CKD-EPI)NonAf 43 (>60 ml/min/1.73 sqM) Glucose 236 H (74-99) mg/dL Plasma Lactic Acid Oscar 1.4 (0.7-2.0) mmol/L Calcium 9.4 (8.4-10.2) mg/dL Magnesium 2.2 (1.6-2.3) mg/dL Total Bilirubin 0.5 (0.2-1.3) mg/dL AST 22 (14-36) U/L ALT 7 (4-34) U/L Alkaline Phosphatase 96 (38-126) U/L Creatine Kinase <20 L (30-135) U/L Troponin I (0.000-0.034) ng/mL NT-Pro-B Natriuret Pep pg/mL Total Protein 6.0 L (6.3-8.2) g/dL Albumin 3.4 L (3.5-5.0) g/dL 07/13/19 07/13/19 07/13/19 Range/Units 15:48 15:48 15:48 WBC (3.8-10.6) k/uL RBC (3.80-5.40) m/uL Hgb (11.4-16.0) gm/dL Hct (34.0-46.0) % MCV (80.0-100.0) fL MCH (25.0-35.0) pg MCHC (31.0-37.0) g/dL RDW (11.5-15.5) % Plt Count (150-450) k/uL Neutrophils % % Lymphocytes % % Monocytes % % Eosinophils % % Basophils % % Neutrophils # (1.3-7.7) k/uL Lymphocytes # (1.0-4.8) k/uL Monocytes # (0-1.0) k/uL Eosinophils # (0-0.7) k/uL Basophils # (0-0.2) k/uL Hypochromasia Macrocytosis PT 23.1 H (9.0-12.0) sec INR 2.4 H (<1.2) APTT 29.1 (22.0-30.0) sec Sodium (137-145) mmol/L Potassium (3.5-5.1) mmol/L Chloride (98-107) mmol/L Carbon Dioxide (22-30) mmol/L Anion Gap mmol/L BUN (7-17) mg/dL Creatinine (0.52-1.04) mg/dL Est GFR (CKD-EPI)AfAm (>60 ml/min/1.73 sqM) Est GFR (CKD-EPI)NonAf (>60 ml/min/1.73 sqM) Glucose (74-99) mg/dL Plasma Lactic Acid Oscar (0.7-2.0) mmol/L Calcium (8.4-10.2) mg/dL Magnesium (1.6-2.3) mg/dL Total Bilirubin (0.2-1.3) mg/dL AST (14-36) U/L ALT (4-34) U/L Alkaline Phosphatase (38-126) U/L Creatine Kinase (30-135) U/L Troponin I 0.021 (0.000-0.034) ng/mL NT-Pro-B Natriuret Pep 7580 pg/mL Total Protein (6.3-8.2) g/dL Albumin (3.5-5.0) g/dL - EKG Data -: EKG Interpreted by Me (EKG shows atrial fibrillation rate of 120 QRS 76 QT since QTC 314/443) - Radiology Data Radiology results: report reviewed (Imaging was reviewed as well as reports bilateral pleural effusions is rotated image. Is appear to me to be increased pulmonary vascular congestion), image reviewed Critical Care Time Critical Care Time: Yes Critical Care Time: 37 minutes of critical care time which includes initial presentation with history physical labs x-rays review the old charting was available multiple reevaluation the patient discussed with the admitting physician admission orders and documentation of the above Disposition Clinical Impression: Diastolic congestive heart failure, Acute pulmonary edema, Acute exacerbation of chronic obstructive pulmonary disease, Acute respiratory distress syndrome in adult Disposition: ADMITTED IP TO THIS HOSP Condition: Serious Referrals: Dwain Weathers MD [Medical Doctor] - 1-2 days
[2019-07-13 16:02] LABS: Basophils % (A) 0 %; Eosinophils % (A) 0 %; HCT 36.3 % (34.0-46.0); HGB 10.8 gm/dL (11.4-16.0); Hypochromasia Marked; Lymphocytes # (A) 0.6 k/uL (1.0-4.8); Lymphocytes % (A) 4 %; MCH 30.1 pg (25.0-35.0); MCHC 29.9 g/dL (31.0-37.0); MCV 100.6 fL (80.0-100.0); Macrocytosis Slight; Mean Platelet Volume 9.3; Monocytes # (A) 0.4 k/uL (0-1.0); Monocytes % (A) 3 %; Neutrophils # (A) 13.8 k/uL (1.3-7.7); Neutrophils % (A) 92 %; Platelet Count 246 k/uL (150-450); RDW 14.9 % (11.5-15.5)
--- NOTE | 2019-07-13 16:08 | XR ---
EXAMINATION TYPE: XR chest 1V portable DATE OF EXAM: 07/13/2019 COMPARISON: Prior chest x-ray 07/09/2019 HISTORY: Difficulty breathing TECHNIQUE: Single frontal view of the chest is obtained. FINDINGS: Patient is rotated. Heart is enlarged. Bibasilar increased density is noted obscuring the hemidiaphragms, is blunting the costophrenic angles. No evident pneumothorax. Interstitium may be imp roved. Aorta is dense and aneurysmal. Pulmonary artery is prominent. IMPRESSION: Cardiomegaly with bibasilar effusions. Correlate for pulmonary artery hypertension. Rota kathie exam. Follow-up recommended.
[2019-07-13 16:09] LABS: INR 2.4 (<1.2); Prothrombin Time 23.1 sec (9.0-12.0)
[2019-07-13 16:10] LABS: Partial Thromboplastin Time 29.1 sec (22.0-30.0)
[2019-07-13 16:25] LABS: ALT 7 U/L (4-34); AST 22 U/L (14-36); African American GFR (CKD) 49 (>60 ml/min/1.73 sqM); Albumin 3.4 g/dL (3.5-5.0); Alkaline Phosphatase 96 U/L (38-126); Blood Urea Nitrogen 69 mg/dL (7-17); Calcium 9.4 mg/dL (8.4-10.2); Chloride 102 mmol/L (98-107); Creatine Kinase <20 U/L (30-135); Glucose 236 mg/dL (74-99); Magnesium 2.2 mg/dL (1.6-2.3); Non-African American GFR(CKD) 43 (>60 ml/min/1.73 sqM); Potassium 4.2 mmol/L (3.5-5.1); Sodium 146 mmol/L (137-145); Total Bilirubin 0.5 mg/dL (0.2-1.3)
[2019-07-13 16:31] LABS: Anion Gap 6 mmol/L; Carbon Dioxide 38 mmol/L (22-30)
[2019-07-13] MEDS ORDERED: ACETAMINOPHEN TAB 325 MG TAB PO PRN (16:48)
[2019-07-13] MEDS ORDERED: NON FORMULARY DRUG (Cefepime Hcl [Maxipime] 2 GM) IV SCH (17:00)
[2019-07-13] MEDS ORDERED: FUROSEMIDE 10 MG/ML 4 ML VIAL IV SCH (17:00)
[2019-07-13] MEDS ORDERED: BENZOCAINE/MENTHOL LOZENG 1 EACH LOZENGE MUCOUS MEM PRN (18:43)
[2019-07-13] MEDS ORDERED: FUROSEMIDE 10 MG/ML 4 ML VIAL IV STA (18:57)
[2019-07-13] MEDS ORDERED: DILTIAZEM DRIP BOLUS FROM BAG 1 MG SOLN IV ONE (18:58)
[2019-07-13] MEDS: IPRATROPIUM-ALBUTEROL 3 ML NEB INHALATION SCH ×2 (19:14→23:51)
[2019-07-13] MEDS ORDERED: DILTIAZEM 125 MG in SODIUM CHLORIDE 0.9% 100 ML IV SCH (19:15)
[2019-07-13] MEDS ORDERED: FUROSEMIDE 40 MG TAB PO SCH (22:00)
[2019-07-13] MEDS: FUROSEMIDE 10 MG/ML 4 ML VIAL IV SCH (22:00)
[2019-07-13] MEDS: INSULIN ASPART (NovoLOG) 100 UNIT/ML VIAL SQ SCH ×2 (22:15→23:01)
[2019-07-13 22:28] LABS: Glucose,Whole Blood 236 mg/dL (75-99)
[2019-07-13] MEDS: CEFEPIME 2 GM in SODIUM CHLORIDE 0.9% 100 ML IVPB SCH (22:34)
[2019-07-13] MEDS: ATORVASTATIN 40 MG TAB PO SCH (22:36)
[2019-07-14] MEDS ORDERED: metroNIDAZOLE 500 MG TAB PO SCH
[2019-07-14 00:49] LABS: Glucose,Whole Blood 220 mg/dL (75-99)
[2019-07-14] MEDS: METOPROLOL TARTRATE 50 MG TAB PO SCH ×4 (01:04→20:08)
[2019-07-14] MEDS: INSULIN DETEMIR (LEVEMIR) 100 UNIT/ML SYR SQ SCH ×2 (01:04→20:41)
[2019-07-14] MEDS: MECLIZINE 12.5 MG TAB PO SCH ×4 (01:05→20:41)
[2019-07-14] MEDS: IPRATROPIUM-ALBUTEROL 3 ML NEB INHALATION SCH ×5 (03:32→20:41)
[2019-07-14 04:14] LABS: Calcium 9.4 mg/dL (8.4-10.2); Potassium 3.9 mmol/L (3.5-5.1)
[2019-07-14] MEDS: LEVOTHYROXINE 88 MCG TAB PO SCH (05:41)
[2019-07-14 06:46] LABS: Glucose,Whole Blood 175 mg/dL (75-99)
[2019-07-14] MEDS: INSULIN ASPART (NovoLOG) 100 UNIT/ML VIAL SQ SCH ×4 (06:56→20:41)
[2019-07-14] MEDS: PANTOPRAZOLE 40 MG TABLET PO SCH (11:15)
[2019-07-14] MEDS: ISOSORBIDE MONONITRATE ER 30 MG TAB.ER.24H PO SCH (11:15)
[2019-07-14] MEDS: DOCUSATE 100 MG CAP PO SCH (11:15)
[2019-07-14] MEDS: LIOTHYRONINE SODIUM 5 MCG TAB PO SCH (11:15)
[2019-07-14] MEDS: POTASSIUM CHLORIDE ER 20 MEQ TAB.ER PO SCH (11:16)
[2019-07-14] MEDS: ALLOPURINOL 300 MG TAB PO SCH (11:16)
[2019-07-14] MEDS: FUROSEMIDE 10 MG/ML 4 ML VIAL IV SCH ×2 (11:17→20:08)
[2019-07-14] MEDS: CEFEPIME 2 GM in SODIUM CHLORIDE 0.9% 100 ML IVPB SCH ×2 (11:17→20:09)
--- NOTE | 2019-07-14 11:19 | P.CNPUL ---
History of Present Illness Consult date: 07/14/19 Reason for consult: dyspnea History of present illness: 79-year-old morbidly obese female patient with a BMI of 44 known history of COPD and previous history of DVT, diastolic heart failure, diabetes mellitus and pressure ulcer of the heels, came into the hospital last week because of wounds in her lower extremities which have been painful and she has also noted drainage to the bilateral heels worse on the left. X-ray of the foot showed demineralization with diffuse subcutaneous emphysema. The patient was started on vancomycin and ID consultation was requested. Bone scan came back negative for osteomyelitis. Wound culture was positive for anaerobic gram-negative bacteria and gram-positive cocci. I was consulted on the case because the patient was having some shortness of breath. The CAT scan of the chest was done and the patient was found to have bilateral pleural effusion and atelectatic changes in lung bases bilaterally. No suspicious mediastinal mass. 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 No mediastinal lymphadenopathy. No pericardial effusion. There is some elevation of the right hemidiaphragm. There are 3 cm low-density left adrenal lesion was also seen. The patient also underwent debridement of the wound to the left. There was measuring 4 x 4 CM. All of the necrotic tissue and the devitalized tissue was removed. The wound was irrigated with saline and medical management was applied. A pressure dressing was also applied. During the course of her hospitalization, the patient was placed on diuretics ultimately she was discharged to [facility] nebulized treatments around the clock on oral Lasix 40 mg twice a day and Zaroxolyn 5 mg once a week in addition to that the patient was also given a prednisone burst taper, discharge. She was also utilizing albuterol/Atrovent nebulized treatment around -the-clock. She was receiving IV cefepime at the longterm.. The wound cultures were obtained on 07/11/2019 showed Acinetobacter pneumoniae in addition to anaerobic gram-negative bacillus and gram-positive copious. The patient came in to the emergency department yesterday because of being leth argic and drowsy. She bounced back within 24 hours of being discharged home. She was complaining of shortness of breath and she has also altered mentation. The patient was found to be quite short of breath and tachypneic. Her white cell count was at 15.0. Hemoglobin was at 10.0. The patient a BUN of 69 with a creatinine of 1.2. Serum sodium level was 146 with a serum bicarb of 38. Her blood sugar was around 236 at time of admission and her BNP level was 7508 with a total protein of 6.0 and an albumin of 3.4. Cardiac enzymes/troponin's were negative. Echocardiogram Echo showed concentric LVH with an EF around 55%. The patient also has mild aortic sclerosis, moderate calcification of the mitral valve and the PA pressure 45 consistent with moderate to severe pulmonary hypertension. I saw this patient again in the emergency department. She was already receiving a pressure of 12/6 cm of water overnight with an FiO2 of 60%. Her chest x-ray shows Solu-Medrol small lateral pleural effusions. She has a elevated today hemidiaphragm. She is in atrial fibrillation. Mental status is improved for now. She looks to be alert and awake. Review of Systems Constitutional: Reports as per HPI, Reports weakness, Denies chills, Denies fever Eyes: denies blurred vision, denies pain Ears, nose, mouth and throat: Denies headache, Denies sore throat Cardiovascular: Denies chest pain, no dyspnea at rest and she has had some chronic dyspnea, exertional in nature. Respiratory: Denies cough and some shortness of breath with activity. Gastrointestinal: Denies abdominal pain, Denies diarrhea, Denies nausea, Denies vomiting Genitourinary: Denies dysuria, Denies hematuria Musculoskeletal: Reports as per HPI, Reports gait dysfunction, Reports leg numbness/tingling, Denies myalgias Integumentary: Denies pruritus, Denies rash, heel ulcers bilaterally and the patient has chronic skin changes and thickening related to chronic venous stasis in lower extremities bilaterally. Neurological: Denies numbness, she has weakness in lower extremities bilaterally and difficulty with mobility, awake and alert and she is following commands and answering questions appropriately without any confusion and altered mentation. The mental status was altered apparently at the time of admission which seems to have improved. Psychiatric: Denies anxiety, Denies depression Endocrine: Denies fatigue, the patient is morbidly obese with a BMI of 44 Past Medical History Past Medical History: Atrial Fibrillation, Heart Failure, COPD, Diabetes Mellitus, Deep Vein Thrombosis (DVT), GERD/Reflux, Hyperlipidemia, Hypertension, Osteoarthritis (OA), Pneumonia, Renal Disease, Respiratory Disorder, Rheumatoid Arthritis (RA), Sleep Apnea/CPAP/BIPAP, Thyroid Disorder Additional Past Medical History / Comment(s): Pt recently admitted to [facility] on 07/06/19 with pressure injury bilateral heels/gangrene, acute on chronic chf, cellulitis L lower extremity, bilateral pleural effusion. Other hx: Chronic respiratory failure, home O2 at 2L/NC, possible mild pulmonary HTN, JOSR but no longer uses her device, lower extremity edema/redness/cellulitis, bilateral heel wounds,pt states she currently has a decubitus on her coccyx, IDDM type II, neuropathy bilateral hands/feet, CKD stage III, pt states she has had "bleeding in the kidneys" in the past, anemia, UTI with sepsis, incontinent of urine and occasionally stool, migraines, gout, hypothyroid, vertigo. History of Any Multi-Drug Resistant Organisms: None Reported Past Surgical History: Heart Catheterization, Hysterectomy, Joint Replacement, Orthopedic Surgery Additional Past Surgical History / Comment(s): L heel debridement with bx, midline, cardiac cath 2016-treated medically, R total knee replacement, L foot heel spur, sanjana cataracts with lens implants, cystoscopy, EGD, colonoscopy. Past Anesthesia/Blood Transfusion Reactions: No Reported Reaction Smoking Status: Former smoker - Past Family History Mother Family Medical History: Renal Disease Father Family Medical History: Coronary Artery Disease (CAD) Medications and Allergies Home Medications Medication Instructions Recorded Confirmed Type Potassium Chloride ER [K-Dur 20] 40 meq PO DAILY 03/22/18 07/13/19 History Ubidecarenone [Co Q-10] 200 mg PO DAILY@1730 03/22/18 07/13/19 History Allopurinol [Zyloprim] 300 mg PO DAILY 02/10/19 07/13/19 History Atorvastatin [Lipitor] 40 mg PO HS 02/10/19 07/13/19 History Liothyronine Sodium [Cytomel] 5 mcg PO DAILY@0600 02/10/19 07/13/19 History Acetaminophen Tab [Tylenol] 650 mg PO Q4HR PRN tab 02/21/19 07/13/19 Rx Docusate [Colace] 100 mg PO DAILY cap 02/21/19 07/13/19 Rx Furosemide [Lasix] 40 mg PO TID 07/06/19 07/13/19 History Levothyroxine Sodium [Synthroid] 88 mcg PO DAILY@0600 07/06/19 07/13/19 History Meclizine [Antivert] 12.5 mg PO TID 07/06/19 07/13/19 History Cefepime HCl [Maxipime] 2 gm IV Q12H 14 Days #28 vial 07/12/19 07/13/19 Rx Insulin Detemir (Levemir) [Levemir] 30 unit SQ HS syr 07/12/19 07/13/19 Rx Ipratropium-Albuterol Nebulize 3 ml INHALATION RT-Q4H ml 07/12/19 07/13/19 Rx [Duoneb 0.5 mg-3 mg/3 ml Soln] Pantoprazole Sodium [Protonix] 40 mg PO DAILY #30 tablet. 07/12/19 07/13/19 Rx traMADol HCL [Ultram] 50 mg PO QID PRN #12 tab 07/12/19 07/13/19 Rx Benzocaine/Menthol Lozeng [Cepacol 1 lozenge MUCOUS MEM Q6H PRN 07/13/19 07/13/19 History lozenge] Bisacodyl [Dulcolax] 10 mg RECTAL DAILY PRN 07/13/19 07/13/19 History INSULIN LISPRO (humaLOG) [humaLOG] See Protocol SQ ACHS 07/13/19 07/13/19 History Ipratropium-Albuterol Nebulize 3 ml INHALATION RT-Q4H PRN 07/13/19 07/13/19 History [Duoneb 0.5 mg-3 mg/3 ml Soln] Isosorbide Dinitrate 30 mg PO DAILY 07/13/19 07/13/19 History Pierce Packet 1 packet PO BID@0800,1700 07/13/19 07/13/19 History Magnesium Hydroxide [Milk of 7,200 mg PO DAILY PRN 07/13/19 07/13/19 History Magnesia Concentrate] Metoprolol Tartrate [Lopressor] 50 mg PO BID@0800,1700 07/13/19 07/13/19 History Na Phos,M-B/Na Phos,Di-Ba [Fleet 133 ml RECTAL DAILY PRN 07/13/19 07/13/19 History Adult] predniSONE See Taper PO DAILY 07/13/19 07/13/19 History Allergies Allergy/AdvReac Type Severity Reaction Status Date / Time iron Allergy Rash/Hives Verified 07/13/19 17:15 Sulfa (Sulfonamide Allergy Rash/Hives Verified 07/13/19 17:15 Antibiotics) Tetanus Vaccines and Toxoid Allergy Swelling Verified 07/13/19 17:15 Physical Exam Vitals: Vital Signs Temp Pulse Pulse Resp BP BP Pulse Ox 07/14/19 10:47 104 H 18 07/14/19 10:36 103 H 18 07/14/19 07:21 94 L 07/14/19 05:00 96.9 F L 96 19 131/90 97 07/14/19 03:42 106 H 07/14/19 03:32 93 07/14/19 00:00 97.5 F L 107 H 23 122/76 98 07/13/19 23:58 124 H 07/13/19 23:47 120 H 07/13/19 22:30 109 H 25 H 99/79 95 07/13/19 22:00 103 H 7 L 119/91 98 07/13/19 21:30 109 H 17 109/69 96 07/13/19 21:00 109 H 26 H 109/88 96 07/13/19 20:30 112 H 18 124/76 96 07/13/19 20:00 111 H 16 104/79 97 07/13/19 19:30 133 H 07/13/19 19:17 138 H 07/13/19 18:39 126 H 07/13/19 18:30 111 H 20 127/89 96 07/13/19 18:00 108 H 20 97/76 96 07/13/19 17:30 133 H 22 108/87 96 07/13/19 17:20 108 H 22 108/87 96 07/13/19 17:10 124 H 22 99/86 95 07/13/19 17:00 118 H 22 103/84 97 07/13/19 16:50 123 H 22 103/84 97 07/13/19 16:40 128 H 22 125/83 96 07/13/19 16:30 106 H 25 H 116/73 95 07/13/19 16:20 149 H 22 116/73 95 07/13/19 16:10 128 H 23 95 07/13/19 16:00 117 H 24 123/91 94 L 07/13/19 15:50 117 H 24 123/91 93 L 07/13/19 15:46 97.2 F L 141 H 20 123/91 98 07/13/19 15:40 130 H 25 H 125/71 92 L 07/13/19 15:38 125 H 26 H 92 L 07/13/19 15:32 30 H Intake and Output 07/13/19 07/14/19 07/14/19 22:59 06:59 14:59 Output Total 950 Balance -950 Output: Urine 950 Other: Voiding Method Indwelling Catheter Weight 120.202 kg 120.202 kg Gen. appearance obese, comfortable likely distress PMI is 44, she is not having any significant respiratory distress. She is off the BiPAP for now on 4 L of oxygen by nasal cannula. She was using BiPAP overnight at a pressure of 12/6 with an FiO2 of 60%. Head exam was generally normal. There was no scleral icterus or corneal arcus. Mucous membranes were moist. Neck was supple and without jugular venous distension, thyromegaly, or carotid bruits. Carotids were easily palpable bilaterally. There was no adenopathy. Lungs sounds are diminished in the lower lung whitt bilaterally along with some dullness to percussion. No wheezes or rhonchi. The breath sounds are more diminished on the right compared to the left. Cardiac exam revealed the PMI to be normally situated and sized. The rhythm was irregular secondary to atrial fibrillation and and no extrasystoles were noted during several minutes of auscultation. The first and second heart sounds were normal and physiologic splitting of the second heart sound was noted. There were no murmurs, rubs, clicks, or gallops. Abdominal exam revealed normal bowel sounds. The abdomen was soft, non-tender, and without masses, organomegaly, or appreciable enlargement of the abdominal aorta. Organs cannot be accurately palpated as patient is obese extremities revealed +1-2 pitting edema addition to diminished pulses in lower extremities bilaterally and the patient has a 4 x 4 centimeter left heel ulcer that was debrided today and another 1 cm ulcer with central dilation tissue on the right Neurologically awake and alert and there is no focal neurological deficit there is motor weakness lower extremities bilaterally. Results - Laboratory Findings CBC and BMP: 07/13/19 15:48 07/14/19 03:42 PT/INR, D-dimer PT 23.1 sec (9.0-12.0) H 07/13/19 15:48 INR 2.4 (<1.2) H 07/13/19 15:48 Abnormal lab findings: Abnormal Labs 07/13/19 07/13/19 07/13/19 15:48 15:48 15:48 WBC 15.0 H RBC 3.60 L Hgb 10.8 L MCV 100.6 H MCHC 29.9 L Neutrophils # 13.8 H Lymphocytes # 0.6 L PT 23.1 H INR 2.4 H Sodium 146 H Carbon Dioxide 38 H BUN 69 H Creatinine 1.20 H Glucose 236 H POC Glucose (mg/dL) Creatine Kinase <20 L Total Protein 6.0 L Albumin 3.4 L 07/13/19 07/14/19 07/14/19 22:08 00:47 03:42 WBC RBC Hgb MCV MCHC Neutrophils # Lymphocytes # PT INR Sodium 146 H Carbon Dioxide 40 H BUN 73 H Creatinine Glucose 184 H POC Glucose (mg/dL) 236 H 220 H Creatine Kinase Total Protein Albumin 07/14/19 06:44 WBC RBC Hgb MCV MCHC Neutrophils # Lymphocytes # PT INR Sodium Carbon Dioxide BUN Creatinine Glucose POC Glucose (mg/dL) 175 H Creatine Kinase Total Protein Albumin - Diagnostic Findings Chest x-ray: image reviewed Assessment and Plan Plan: 1 CHF with diastolic heart failure, and the patient has small bilateral pleural effusions. She does have small lung volumes and some limited atelectatic changes in lung bases. 2 bilateral pleural effusion secondary to above 3 chronic hypoxic respiratory failure with possibly component of chronic hypercapnic respiratory failure.. The patient's has more than 40 tachycardia smoking history and I'm sure she has a component of COPD along with a component of obesity hypoventilation syndrome/obstructive sleep apnea. This has been officially confirmed and the patient has not been able to tolerate CPAP. I think this is something to consider that again in the future 4 altered mental status and possibly due to a combination of COPD exacerbation and CHF exacerbation with CO2 narcosis, insulin-dependent therapy and diuresis 5 COPD with chronic hypercapnic and hypoxic history failure 6 previous history of DVT of lower extremity currently on anticoagulation with a therapeutic PT/INR 7 morbid obesity with a BMI of 44 8 bilateral heel ulcers post-debridement of the left heel ulcer measuring 4x4 cm cultures of been sent and the patient is currently covered with antibiotics 9 history of atrial fibrillation, the PT/INR is therapeutic for now with an INR of 2.4 10 hypertension 11 hyperlipidemia 12 osteoarthritis 13 stage II kidney disease, chronic 14 obstructive sleep apnea noncompliant to CPAP therapy unable to use 15 decubitus ulceration involving the coccyx 16 previous history of UTI with sepsis and the patient suffers from incontinence of the urine 17 gout 18 hypothyroidism 19 history of vertigo 20 rheumatoid arthritis 21 gout 22 mild leukocytosis 23 chronic metabolic alkalosis probably related to chronic hypercapnic respiratory failure Plan This patient has bounced back from longterm for the above-mentioned reasons. She'll be diuresed aggressively with IV Lasix. Obtain a blood gas Continue using the BiPAP on and off during the day Continue IV cefepime Continue anticoagulation with warfarin the PT/INR is therapeutic Wound care to the heels Resume outpatient medications Complete a prednisone burst taper DuoNeb nebulized treatments around the clock Prognosis poor on long-term basis and the patient has multiple medical problems and comorbidities most significant of which is the diastolic failure and chronic hypoxic and hypercapnic respiratory failure. We'll continue to follow.
[2019-07-14] MEDS: predniSONE 20 MG TAB PO SCH (11:21)
--- NOTE | 2019-07-14 11:48 | P.CRDCN ---
History of Present Illness Consult date: 07/14/19 Requesting physician: Dominick Rosen Consult reason: congestive heart failure Chief complaint: Shortness of breath and lethargy History of present illness: This is a pleasant 79-year-old female with documented history of hypertension, diabetes, hyperlipidemia, paroxysmal atrial fibrillation, chronic diastolic congestive heart failure, COPD, history of DVT, chronic pressure ulcers to her bilateral heels, she has a BMI of 44. Patient has been on recent vancomycin, because her wound culture was positive for anaerobic gram-negative bacteria and gram-positive cocci. Her bone scan was negative for osteomyelitis recently. On her recent hospitalization, patient was treated with some IV Lasix as well as Zaroxolyn, and receiving IV antibiotics at the longterm. She presented to the hospital yesterday with symptoms of lethargy, and shortness of breath. She had some mild mental status changes. Her chest x-ray on presentation here showed cardiomegaly with bibasilar effusions. EKG showed atrial fibrillation with a rapid ventricular response. Blood pressure 125/70 with a heart rate of 1:30 to 140, 92% on BiPAP. White blood cell count 15.0, hemoglobin 10.8, platelet count 246. INR is 2.4. Sodium 146, potassium 3.9, BUN 73 and creatinine 1.0 this morning, on admission the creatinine was 1.2. BNP level 7580, troponins 0.021, 0.018, 0.015. At the time of my examination, the patient is alert and oriented, still in the emergency room. Awaiting a bed on the telemetry unit. She is currently on a Cardizem drip at 5 mg per hour, on IV antibiotics, and on IV Lasix. Past Medical History Past Medical History: Atrial Fibrillation, Heart Failure, COPD, Diabetes Mellitus, Deep Vein Thrombosis (DVT), GERD/Reflux, Hyperlipidemia, Hypertension, Osteoarthritis (OA), Pneumonia, Renal Disease, Respiratory Disorder, Rheumatoid Arthritis (RA), Sleep Apnea/CPAP/BIPAP, Thyroid Disorder Additional Past Medical History / Comment(s): Pt recently admitted to [facility] on 07/06/19 with pressure injury bilateral heels/gangrene, acute on chronic chf, cellulitis L lower extremity, bilateral pleural effusion. Other hx: Chronic respiratory failure, home O2 at 2L/NC, possible mild pulmonary HTN, JOSR but no longer uses her device, lower extremity edema/redness/cellulitis, bilateral heel wounds,pt states she currently has a decubitus on her coccyx, IDDM type II, neuropathy bilateral hands/feet, CKD stage III, pt states she has had "bleeding in the kidneys" in the past, anemia, UTI with sepsis, incontinent of urine and occasionally stool, migraines, gout, hypothyroid, vertigo. History of Any Multi-Drug Resistant Organisms: None Reported Past Surgical History: Heart Catheterization, Hysterectomy, Joint Replacement, Orthopedic Surgery Additional Past Surgical History / Comment(s): L heel debridement with bx, midline, cardiac cath 2017-treated medically, R total knee replacement, L foot heel spur, sanjana cataracts with lens implants, cystoscopy, EGD, colonoscopy. Past Anesthesia/Blood Transfusion Reactions: No Reported Reaction Smoking Status: Former smoker - Past Family History Mother Family Medical History: Renal Disease Father Family Medical History: Coronary Artery Disease (CAD) Medications and Allergies Home Medications Medication Instructions Recorded Confirmed Type Potassium Chloride ER [K-Dur 20] 40 meq PO DAILY 03/22/18 07/13/19 History Ubidecarenone [Co Q-10] 200 mg PO DAILY@1730 03/22/18 07/13/19 History Allopurinol [Zyloprim] 300 mg PO DAILY 02/10/19 07/13/19 History Atorvastatin [Lipitor] 40 mg PO HS 02/10/19 07/13/19 History Liothyronine Sodium [Cytomel] 5 mcg PO DAILY@0600 02/10/19 07/13/19 History Acetaminophen Tab [Tylenol] 650 mg PO Q4HR PRN tab 02/21/19 07/13/19 Rx Docusate [Colace] 100 mg PO DAILY cap 02/21/19 07/13/19 Rx Furosemide [Lasix] 40 mg PO TID 07/06/19 07/13/19 History Levothyroxine Sodium [Synthroid] 88 mcg PO DAILY@0600 07/06/19 07/13/19 History Meclizine [Antivert] 12.5 mg PO TID 07/06/19 07/13/19 History Cefepime HCl [Maxipime] 2 gm IV Q12H 14 Days #28 vial 07/12/19 07/13/19 Rx Insulin Detemir (Levemir) [Levemir] 30 unit SQ HS syr 07/12/19 07/13/19 Rx Ipratropium-Albuterol Nebulize 3 ml INHALATION RT-Q4H ml 07/12/19 07/13/19 Rx [Duoneb 0.5 mg-3 mg/3 ml Soln] Pantoprazole Sodium [Protonix] 40 mg PO DAILY #30 tablet.dr 07/12/19 07/13/19 Rx traMADol HCL [Ultram] 50 mg PO QID PRN #12 tab 07/12/19 07/13/19 Rx Benzocaine/Menthol Lozeng [Cepacol 1 lozenge MUCOUS MEM Q6H PRN 07/13/19 07/13/19 History lozenge] Bisacodyl [Dulcolax] 10 mg RECTAL DAILY PRN 07/13/19 07/13/19 History INSULIN LISPRO (humaLOG) [humaLOG] See Protocol SQ ACHS 07/13/19 07/13/19 History Ipratropium-Albuterol Nebulize 3 ml INHALATION RT-Q4H PRN 07/13/19 07/13/19 History [Duoneb 0.5 mg-3 mg/3 ml Soln] Isosorbide Dinitrate 30 mg PO DAILY 07/13/19 07/13/19 History Pierce Packet 1 packet PO BID@0800,1700 07/13/19 07/13/19 History Magnesium Hydroxide [Milk of 7,200 mg PO DAILY PRN 07/13/19 07/13/19 History Magnesia Concentrate] Metoprolol Tartrate [Lopressor] 50 mg PO BID@0800,1700 07/13/19 07/13/19 History Na Phos,M-B/Na Phos,Di-Ba [Fleet 133 ml RECTAL DAILY PRN 07/13/19 07/13/19 History Adult] predniSONE See Taper PO DAILY 07/13/19 07/13/19 History Allergies Allergy/AdvReac Type Severity Reaction Status Date / Time iron Allergy Rash/Hives Verified 07/13/19 17:15 Sulfa (Sulfonamide Allergy Rash/Hives Verified 07/13/19 17:15 Antibiotics) Tetanus Vaccines and Toxoid Allergy Swelling Verified 07/13/19 17:15 Physical Exam Vitals: Vital Signs Temp Pulse Pulse Resp BP BP Pulse Ox 07/14/19 10:47 104 H 18 07/14/19 10:36 103 H 18 07/14/19 07:21 94 L 07/14/19 05:00 96.9 F L 96 19 131/90 97 07/14/19 03:42 106 H 07/14/19 03:32 93 07/14/19 00:00 97.5 F L 107 H 23 122/76 98 07/13/19 23:58 124 H 07/13/19 23:47 120 H 07/13/19 22:30 109 H 25 H 99/79 95 07/13/19 22:00 103 H 7 L 119/91 98 07/13/19 21:30 109 H 17 109/69 96 07/13/19 21:00 109 H 26 H 109/88 96 07/13/19 20:30 112 H 18 124/76 96 07/13/19 20:00 111 H 16 104/79 97 07/13/19 19:30 133 H 07/13/19 19:17 138 H 07/13/19 18:39 126 H 07/13/19 18:30 111 H 20 127/89 96 07/13/19 18:00 108 H 20 97/76 96 07/13/19 17:30 133 H 22 108/87 96 07/13/19 17:20 108 H 22 108/87 96 07/13/19 17:10 124 H 22 99/86 95 07/13/19 17:00 118 H 22 103/84 97 07/13/19 16:50 123 H 22 103/84 97 07/13/19 16:40 128 H 22 125/83 96 07/13/19 16:30 106 H 25 H 116/73 95 07/13/19 16:20 149 H 22 116/73 95 07/13/19 16:10 128 H 23 95 07/13/19 16:00 117 H 24 123/91 94 L 07/13/19 15:50 117 H 24 123/91 93 L 07/13/19 15:46 97.2 F L 141 H 20 123/91 98 07/13/19 15:40 130 H 25 H 125/71 92 L 07/13/19 15:38 125 H 26 H 92 L 07/13/19 15:32 30 H Intake and Output 07/13/19 07/14/19 07/14/19 22:59 06:59 14:59 Output Total 950 Balance -950 Output: Urine 950 Other: Voiding Method Indwelling Catheter Weight 120.202 kg 120.202 kg PHYSICAL EXAMINATION: GENERAL: 79-year-old female in no acute distress at the time of my examination HEENT: Head is atraumatic, normocephalic. Pupils equal, round. Sclera anicteric. Conjunctiva are clear. Mucous membranes of the mouth are moist. Neck is supple. There is no elevated jugular venous pressure. No carotid bruit is heard. HEART EXAMINATION: Heart S1 and S2 irregularly irregular a systolic ejection murmur is heard CHEST EXAMINATION: Lungs reveal diminished air entry bilaterally ABDOMEN: Soft, obese, nontender. Bowel sounds are heard. No organomegaly noted. EXTREMITIES:[ 1+ peripheral pulses with 2-3+ evidence of peripheral edema , left heel ulcer, status post debridement, dressing in place, another ulcer is also present on the right lower extremity. NEUROLOGIC patient is awake, alert and oriented 3 . . Results 07/13/19 15:48 07/14/19 03:42 Cardiac Enzymes 07/13/19 07/13/19 07/13/19 Range/Units 15:48 15:48 22:00 AST 22 (14-36) U/L Troponin I 0.021 0.018 (0.000-0.034) ng/mL 07/14/19 Range/Units 03:42 AST (14-36) U/L Troponin I 0.015 (0.000-0.034) ng/mL Coagulation 07/13/19 Range/Units 15:48 PT 23.1 H (9.0-12.0) sec APTT 29.1 (22.0-30.0) sec CBC 07/13/19 Range/Units 15:48 WBC 15.0 H (3.8-10.6) k/uL RBC 3.60 L (3.80-5.40) m/uL Hgb 10.8 L (11.4-16.0) gm/dL Hct 36.3 (34.0-46.0) % Plt Count 246 (150-450) k/uL Comprehensive Metabolic Panel 07/13/19 07/14/19 Range/Units 15:48 03:42 Sodium 146 H 146 H (137-145) mmol/L Potassium 4.2 3.9 (3.5-5.1) mmol/L Chloride 102 103 (98-107) mmol/L Carbon Dioxide 38 H 40 H (22-30) mmol/L BUN 69 H 73 H (7-17) mg/dL Creatinine 1.20 H 1.02 (0.52-1.04) mg/dL Glucose 236 H 184 H (74-99) mg/dL Calcium 9.4 9.4 (8.4-10.2) mg/dL AST 22 (14-36) U/L ALT 7 (4-34) U/L Alkaline Phosphatase 96 (38-126) U/L Total Protein 6.0 L (6.3-8.2) g/dL Albumin 3.4 L (3.5-5.0) g/dL Current Medications Generic Name Dose Route Start Last Admin Trade Name Freq PRN Reason Stop Dose Admin Acetaminophen 650 mg 07/13/19 16:48 Tylenol Tab PO Q4HR PRN Fever and/ or MILD Pain Albuterol/Ipratropium 3 ml 07/13/19 20:00 07/14/19 10:36 Duoneb 0.5 Mg-3 Mg/3 Ml Soln INHALATION 3 ml RT-Q4H ANATOLY Administration Allopurinol 300 mg 07/14/19 09:00 07/14/19 11:16 Zyloprim PO 300 mg DAILY ANATOLY Administration Atorvastatin Calcium 40 mg 07/13/19 21:00 07/13/19 22:36 Lipitor PO 40 mg HS ANATOLY Administration Benzocaine/Menthol 1 each 07/13/19 18:43 Cepacol Lozenge MUCOUS MEM Q6HR PRN Sore Throat Docusate Sodium 100 mg 07/14/19 09:00 07/14/19 11:15 Colace PO 100 mg DAILY ANATOLY Administration Furosemide 40 mg 07/13/19 21:00 07/14/19 11:17 Lasix IV 40 mg Q12HR ANATOLY Administration Cefepime HCl 2 gm/ Sodium 100 mls @ 200 mls/hr 07/13/19 21:00 07/14/19 11:17 Chloride IVPB 200 mls/hr Q12HR ANATOLY Administration Diltiazem HCl 125 mg/ Sodium 125 mls @ 5 mls/hr 07/13/19 19:15 07/13/19 19:32 Chloride IV 5 mg/hr .Q24H ANATOLY 5 mls/hr Administration 5 MG/HR Insulin Aspart 0 unit 07/13/19 17:30 07/14/19 06:56 Novolog SQ 2 unit ACHS ANATOLY Administration Protocol Insulin Detemir 30 unit 07/13/19 21:00 07/14/19 01:04 Levemir SQ Not Given HS AANTOLY Isosorbide Mononitrate 30 mg 07/14/19 09:00 07/14/19 11:15 Imdur PO 30 mg DAILY ANATOLY Administration Levothyroxine Sodium 88 mcg 07/14/19 06:30 07/14/19 05:41 Synthroid PO 88 mcg 0630 ANATOLY Administration Liothyronine Sodium 5 mcg 07/14/19 09:00 07/14/19 11:15 Cytomel PO 5 mcg DAILY ANATOLY Administration Meclizine HCl 12.5 mg 07/13/19 22:00 07/14/19 11:15 Antivert PO 12.5 mg TID ANATOLY Administration Metolazone 5 mg 07/19/19 09:00 Zaroxolyn PO Q7D ANATOLY Metoprolol Tartrate 50 mg 07/13/19 21:00 07/14/19 11:15 Lopressor PO 50 mg BID ANATOLY Administration Non-Formulary Medication 200 mg 07/14/19 09:00 Ubidecarenone [Co Q-10] PO DAILY ANATOLY Pantoprazole Sodium 40 mg 07/14/19 09:00 07/14/19 11:15 Protonix PO 40 mg DAILY ANATOLY Administration Potassium Chloride 40 meq 07/14/19 09:00 07/14/19 11:16 K-Dur 20 PO 40 meq DAILY ANATOLY Administration Prednisone 40 mg 07/14/19 09:00 07/14/19 11:21 PO 07/15/19 09:01 40 mg DAILY ANATOLY Administration Tramadol HCl 50 mg 07/13/19 16:48 Ultram PO QID PRN Pain Intake and Output 07/13/19 07/14/19 07/14/19 22:59 06:59 14:59 Output Total 950 Balance -950 Output: Urine 950 Other: Voiding Method Indwelling Catheter Weight 120.202 kg 120.202 kg Patient Weight 07/15/19 06:59 Weight 120.202 kg 07/13/19 15:48 07/14/19 03:42 EKG Interpretations (text) EKG shows atrial fibrillation with a rapid ventricular response Assessment and Plan Plan: Assessment and plan #1 systolic CHF acute on chronic , and the patient has small bilateral pleural effusions. #2 bilateral pleural effusion secondary to above #3 chronic hypoxic respiratory failure with possibly component of chronic hypercapnic respiratory failure.. #4 altered mental status and possibly due to a combination of COPD exacerbation and CHF exacerbation with CO2 narcosis #5 COPD with chronic hypercapnic and hypoxic history failure #6 previous history of DVT of lower extremity currently on anticoagulation with a therapeutic PT/INR #7 morbid obesity with a BMI of 44 #8 bilateral heel ulcers post-debridement of the left heel ulcer measuring 4x4 cm cultures of been sent and the patient is currently covered with antibiotics #9 history of paroxysmal atrial fibrillation, the PT/INR is therapeutic for now with an INR of 2.4 #10 hypertension #11 hyperlipidemia #12 osteoarthritis #13 stage II kidney disease, chronic #14 obstructive sleep apnea noncompliant to CPAP therapy unable to use #15 decubitus ulceration involving the coccyx #16 previous history of UTI with sepsis and the patient suffers from incontinence of the urine #17 gout #18 hypothyroidism #19 history of vertigo #20 rheumatoid arthritis Plan Patient's most recent echocardiogram with Doppler study was performed in January of last year which revealed an ejection fraction of 50-55%, we will repeat an echo this admission as well. Continues current dose of IV Lasix. Discontinue IV Cardizem and increase beta darius dose. Check a TSH level. DNP note has been reviewed, I agree with a documented findings and plan of care. Patient was seen and examined.
[2019-07-14 12:43] LABS: ABG Base Excess 18.3 mmol/L; ABG Oxygen Saturation 91.3 % (94-97); ABG PCO2 64 mmHg (35-45); ABG PH 7.43 (7.35-7.45); ABG TCO2 45 mmol/L (19-24); Allen Test Performed? Yes
[2019-07-14 12:43] LABS: Glucose,Whole Blood 215 mg/dL (75-99)
[2019-07-14 12:46] LABS: ABG HCO3 43 mmol/L (21-25); ABG PO2 59 mmHg (83-108)
[2019-07-14 12:51] LABS: INR 2.5 (<1.2); Prothrombin Time 24.4 sec (9.0-12.0)
[2019-07-14] MEDS: NON FORMULARY DRUG (Ubidecarenone [Co Q-10] 200 MG) PO SCH (13:26)
[2019-07-14 13:57] VITALS: BMI 45.4
[2019-07-14 16:51] LABS: Glucose,Whole Blood 329 mg/dL (75-99)
[2019-07-14] MEDS: ATORVASTATIN 40 MG TAB PO SCH (20:08)
[2019-07-14 20:34] LABS: Glucose,Whole Blood 333 mg/dL (75-99)
[2019-07-15] MEDS: IPRATROPIUM-ALBUTEROL 3 ML NEB INHALATION SCH ×6 (00:04→19:29)
[2019-07-15 06:08] LABS: Glucose,Whole Blood 165 mg/dL (75-99)
[2019-07-15] MEDS: INSULIN ASPART (NovoLOG) 100 UNIT/ML VIAL SQ SCH ×4 (06:22→21:10)
[2019-07-15] MEDS: LEVOTHYROXINE 88 MCG TAB PO SCH (06:22)
[2019-07-15 06:41] LABS: INR 2.1 (<1.2); Prothrombin Time 20.1 sec (9.0-12.0)
[2019-07-15 06:44] LABS: Potassium 3.8 mmol/L (3.5-5.1)
[2019-07-15] MEDS: CEFEPIME 2 GM in SODIUM CHLORIDE 0.9% 100 ML IVPB SCH (08:38)
[2019-07-15] MEDS: FUROSEMIDE 10 MG/ML 4 ML VIAL IV SCH ×2 (08:39→19:57)
[2019-07-15] MEDS: POTASSIUM CHLORIDE ER 20 MEQ TAB.ER PO SCH (08:40)
[2019-07-15] MEDS: MECLIZINE 12.5 MG TAB PO SCH ×3 (08:40→21:11)
[2019-07-15] MEDS: LIOTHYRONINE SODIUM 5 MCG TAB PO SCH (08:40)
[2019-07-15] MEDS: ISOSORBIDE MONONITRATE ER 30 MG TAB.ER.24H PO SCH (08:40)
[2019-07-15] MEDS: PANTOPRAZOLE 40 MG TABLET PO SCH (08:40)
[2019-07-15] MEDS: METOPROLOL TARTRATE 50 MG TAB PO SCH ×2 (08:41→19:57)
[2019-07-15] MEDS: DOCUSATE 100 MG CAP PO SCH (08:41)
[2019-07-15] MEDS: ALLOPURINOL 300 MG TAB PO SCH (08:41)
[2019-07-15] MEDS: SPIRONOLACTONE 25 MG TAB PO SCH (08:41)
[2019-07-15] MEDS: predniSONE 20 MG TAB PO SCH (08:41)
[2019-07-15] MEDS: NON FORMULARY DRUG (Ubidecarenone [Co Q-10] 200 MG) PO SCH (08:42)
--- NOTE | 2019-07-15 08:52 | P.HPIM ---
History of Present Illness H&P Date: 07/14/19 Chief Complaint: AMS, dyspnea Tamar Dominguez is an 79 yo F with PMH of systolic CHF, persistent atrial fibrillation, COPD, T2DM, hx DVT, lymphedema, was recently admitted last week from the wound center due to worsening pressure ulcer in her heel. She was seen by ID and vascular surgery at that time, underwent bone scan which was negative for osteomyelitis, underwent bedside debridement and was discharged to [facility]. During her hospitalization she was continued on her home dose of oral lasix 40 mg bid and metalozone 5 mg weekly. She was also discharged on a prednisone taper and recommended to continue duonebs. She returned to the ED 24 hours after discharge with shortness of breath. She was found to be tachypneic, WBC 15k, BUN 69, Cr 1.2, she was in atrial fibrillation at ventricular rate of 130 bpm. Pt was placed on BiPAP and given a dose of IV lasix. Review of Systems All systems: negative Constitutional: Reports fatigue, Reports lethargy, Reports weakness, Denies chills, Denies fever Eyes: denies blurred vision, denies pain Ears, nose, mouth and throat: Denies headache, Denies sore throat Cardiovascular: Reports dyspnea on exertion, Reports shortness of breath, Denies chest pain Respiratory: Reports sleep apnea, Denies cough Gastrointestinal: Denies abdominal pain, Denies diarrhea, Denies nausea, Denies vomiting Genitourinary: Denies dysuria, Denies hematuria Musculoskeletal: Denies myalgias Integumentary: Denies pruritus, Denies rash Neurological: Denies numbness, Denies weakness Psychiatric: Denies anxiety, Denies depression Endocrine: Denies fatigue, Denies weight change Past Medical History Past Medical History: Atrial Fibrillation, Heart Failure, COPD, Diabetes Mellitus, Deep Vein Thrombosis (DVT), GERD/Reflux, Hyperlipidemia, Hypertension, Osteoarthritis (OA), Pneumonia, Renal Disease, Respiratory Disorder, Rheumatoid Arthritis (RA), Sleep Apnea/CPAP/BIPAP, Thyroid Disorder Additional Past Medical History / Comment(s): Pt recently admitted to [facility] on 07/06/19 with pressure injury bilateral heels/gangrene, acute on chronic chf, cellulitis L lower extremity, bilateral pleural effusion. Other hx: Chronic respiratory failure, home O2 at 2L/NC, possible mild pulmonary HTN, JOSR but no longer uses her device, lower extremity edema/redness/cellulitis, bilateral heel wounds,pt states she currently has a decubitus on her coccyx, IDDM type II, neuropathy bilateral hands/feet, CKD stage III, pt states she has had "bleeding in the kidneys" in the past, anemia, UTI with sepsis, incontinent of urine and occasionally stool, migraines, gout, hypothyroid, vertigo. History of Any Multi-Drug Resistant Organisms: None Reported Past Surgical History: Heart Catheterization, Hysterectomy, Joint Replacement, Orthopedic Surgery Additional Past Surgical History / Comment(s): L heel debridement with bx, midline, cardiac cath 2017-treated medically, R total knee replacement, L foot heel spur, sanjana cataracts with lens implants, cystoscopy, EGD, colonoscopy. Past Anesthesia/Blood Transfusion Reactions: No Reported Reaction Smoking Status: Former smoker - Past Family History Mother Family Medical History: Renal Disease Father Family Medical History: Coronary Artery Disease (CAD) Medications and Allergies Home Medications Medication Instructions Recorded Confirmed Type Potassium Chloride ER [K-Dur 20] 40 meq PO DAILY 03/22/18 07/13/19 History Ubidecarenone [Co Q-10] 200 mg PO DAILY@1730 03/22/18 07/13/19 History Allopurinol [Zyloprim] 300 mg PO DAILY 02/10/19 07/13/19 History Atorvastatin [Lipitor] 40 mg PO HS 02/10/19 07/13/19 History Liothyronine Sodium [Cytomel] 5 mcg PO DAILY@0600 02/10/19 07/13/19 History Acetaminophen Tab [Tylenol] 650 mg PO Q4HR PRN tab 02/21/19 07/13/19 Rx Docusate [Colace] 100 mg PO DAILY cap 02/21/19 07/13/19 Rx Furosemide [Lasix] 40 mg PO TID 07/06/19 07/13/19 History Levothyroxine Sodium [Synthroid] 88 mcg PO DAILY@0600 07/06/19 07/13/19 History Meclizine [Antivert] 12.5 mg PO TID 07/06/19 07/13/19 History Cefepime HCl [Maxipime] 2 gm IV Q12H 14 Days #28 vial 07/12/19 07/13/19 Rx Insulin Detemir (Levemir) [Levemir] 30 unit SQ HS syr 07/12/19 07/13/19 Rx Ipratropium-Albuterol Nebulize 3 ml INHALATION RT-Q4H ml 07/12/19 07/13/19 Rx [Duoneb 0.5 mg-3 mg/3 ml Soln] Pantoprazole Sodium [Protonix] 40 mg PO DAILY #30 tablet.dr 07/12/19 07/13/19 Rx traMADol HCL [Ultram] 50 mg PO QID PRN #12 tab 07/12/19 07/13/19 Rx Benzocaine/Menthol Lozeng [Cepacol 1 lozenge MUCOUS MEM Q6H PRN 07/13/19 07/13/19 History lozenge] Bisacodyl [Dulcolax] 10 mg RECTAL DAILY PRN 07/13/19 07/13/19 History INSULIN LISPRO (humaLOG) [humaLOG] See Protocol SQ ACHS 07/13/19 07/13/19 History Ipratropium-Albuterol Nebulize 3 ml INHALATION RT-Q4H PRN 07/13/19 07/13/19 History [Duoneb 0.5 mg-3 mg/3 ml Soln] Isosorbide Dinitrate 30 mg PO DAILY 07/13/19 07/13/19 History Pierce Packet 1 packet PO BID@0800,1700 07/13/19 07/13/19 History Magnesium Hydroxide [Milk of 7,200 mg PO DAILY PRN 07/13/19 07/13/19 History Magnesia Concentrate] Metoprolol Tartrate [Lopressor] 50 mg PO BID@0800,1700 07/13/19 07/13/19 History Na Phos,M-B/Na Phos,Di-Ba [Fleet 133 ml RECTAL DAILY PRN 07/13/19 07/13/19 History Adult] predniSONE See Taper PO DAILY 07/13/19 07/13/19 History Allergies Allergy/AdvReac Type Severity Reaction Status Date / Time iron Allergy Rash/Hives Verified 07/13/19 17:15 Sulfa (Sulfonamide Allergy Rash/Hives Verified 07/13/19 17:15 Antibiotics) Tetanus Vaccines and Toxoid Allergy Swelling Verified 07/13/19 17:15 Physical Exam Vitals: Vital Signs Temp Pulse Pulse Resp BP Pulse Ox 07/15/19 07:46 100 01/31/20 07:37 104 H 96 07/15/19 04:03 97 07/15/19 03:42 97 07/15/19 03:23 97.4 F L 108 H 22 140/99 98 07/15/19 00:16 72 07/15/19 00:04 69 07/14/19 23:34 60 25 H 138/80 96 07/14/19 20:56 100 07/14/19 20:41 97.2 F L 101 H 94 18 134/78 95 07/14/19 16:40 98.1 F 116 H 18 122/77 94 L 07/14/19 13:08 99 F 101 H 20 102/77 92 L 07/14/19 10:47 104 H 18 07/14/19 10:36 103 H 18 07/14/19 10:30 98.8 F 117 H 20 112/83 92 L Intake and Output 07/14/19 07/15/19 07/15/19 22:59 06:59 14:59 Intake Total 200 Balance 200 Intake: Oral 200 Other: Voiding Method Indwelling Catheter Indwelling Catheter # Voids 1 # Bowel Movements 1 General: obese female in NAD. Vitals reviewed Eyes: PERRL, EOMI, conjunctiva normal HENT: normocephalic, mucus membranes moist Neck: supple, no JVD Lungs: diminished air entry, bibasilar rales, no wheezing CV: Irregularly irregular, no murmur. Peripheral pulses 1+ Abdomen: soft, nondistended, no organomegaly Ext: bilateral LE with 3+ edema. LLE with wound at heel, wrapping in place Skin: warm and dry. Neuro: A&Ox3, normal mood and affect Results CBC & Chem 7: 07/13/19 15:48 07/15/19 06:04 Labs: Abnormal Lab Results - Last 24 Hours (Table) 07/14/19 07/14/19 07/14/19 Range/Units 12:20 12:39 12:42 PT 24.4 H (9.0-12.0) sec INR 2.5 H (<1.2) ABG pCO2 64 H (35-45) mmHg ABG pO2 59 L* (83-108) mmHg ABG HCO3 43 H* (21-25) mmol/L ABG Total CO2 45 H (19-24) mmol/L ABG O2 Saturation 91.3 L (94-97) % Sodium (137-145) mmol/L Carbon Dioxide (22-30) mmol/L BUN (7-17) mg/dL Creatinine (0.52-1.04) mg/dL Glucose (74-99) mg/dL POC Glucose (mg/dL) 215 H (75-99) mg/dL 07/14/19 07/14/19 07/15/19 Range/Units 16:49 20:32 06:04 PT (9.0-12.0) sec INR (<1.2) ABG pCO2 (35-45) mmHg ABG pO2 (83-108) mmHg ABG HCO3 (21-25) mmol/L ABG Total CO2 (19-24) mmol/L ABG O2 Saturation (94-97) % Sodium 146 H (137-145) mmol/L Carbon Dioxide 40 H (22-30) mmol/L BUN 67 H (7-17) mg/dL Creatinine 1.14 H (0.52-1.04) mg/dL Glucose 157 H (74-99) mg/dL POC Glucose (mg/dL) 329 H 333 H (75-99) mg/dL 07/15/19 07/15/19 Range/Units 06:04 06:07 PT 20.1 H (9.0-12.0) sec INR 2.1 H (<1.2) ABG pCO2 (35-45) mmHg ABG pO2 (83-108) mmHg ABG HCO3 (21-25) mmol/L ABG Total CO2 (19-24) mmol/L ABG O2 Saturation (94-97) % Sodium (137-145) mmol/L Carbon Dioxide (22-30) mmol/L BUN (7-17) mg/dL Creatinine (0.52-1.04) mg/dL Glucose (74-99) mg/dL POC Glucose (mg/dL) 165 H (75-99) mg/dL Thrombosis Risk Factor Assmnt - Choose All That Apply Any of the Below Risk Factors Present?: Yes Each Factor Represents 1 point: Heart failure (<1month), Medical pt on bed rest, Obesity (BMI >25) Other Risk Factors: Yes Each Risk Factor Represents 2 Points: Patient confined to bed Each Risk Factor Represents 3 Points: Age 75 years or older Other congenital or acquired thrombophilia - If yes, enter type in comment: No Thrombosis Risk Factor Assessment Total Risk Factor Score: 8 Thrombosis Risk Factor Assessment Level: High Risk Assessment and Plan (1) Acute exacerbation of chronic obstructive pulmonary disease Current Visit: Yes Status: Acute Code(s): J44.1 - CHRONIC OBSTRUCTIVE P ULMONARY DISEASE W (ACUTE) EXACERBATION SNOMED Code(s): 684861312 (2) Acute pulmonary edema Current Visit: Yes Status: Acute Code(s): J81.0 - ACUTE PULMONARY EDEMA SNOMED Code(s): 46124412 (3) Acute on chronic diastolic (congestive) heart failure Current Visit: No Status: Acute Code(s): I50.33 - ACUTE ON CHRONIC DIASTOLIC (CONGESTIVE) HEART FAILURE SNOMED Code(s): 829328308 (4) Atrial fibrillation with rapid ventricular response Current Visit: No Status: Acute Code(s): I48.91 - UNSPECIFIED ATRIAL FIBRILLATION SNOMED Code(s): 973867155723978 (5) Type 2 diabetes mellitus Current Visit: No Status: Acute Code(s): E11.9 - TYPE 2 DIABETES MELLITUS WITHOUT COMPLICATIONS SNOMED Code(s): 74951093 Plan: 1. Acute hypoxic respiratory failure. CXR with bibasilar effusions and BNP 7k. Suspect CHF exacerbation. Pt on BIPAP, continue IV lasix 40 mg bid. Pulmonology and cardiology consult 2. Atrial fibrillation with RVR. Start diltiazem drip, continue lopressor, coumadin. Further management per cardiology 3. LLE necrotic wound/gangrene. Continue cefepime and flagyl awaiting final cultures per ID 4. T2DM. Accucheck, sliding scale 5. COPD
[2019-07-15] MEDS ORDERED: metroNIDAZOLE 500 MG TAB PO SCH (09:00)
[2019-07-15] MEDS ORDERED: METOPROLOL TARTRATE 50 MG TAB PO STA (09:40)
--- NOTE | 2019-07-15 09:54 | P.PN ---
Subjective This is America Andrade PA-C dictating a progress note on this patient The patient was interviewed and examined by me as well as by Dr. Covington Case discussed with Dr. Covington and he agrees with the plan of care HPI/interval history Patient is an 79-year-old female with a history of hypertension, diabetes, dyslipidemia, paroxysmal atrial fibrillation, chronic diastolic CHF, COPD, DVT, pressure ulcers to her heels and coccyx who presented with shortness of breath and lethargy as well as mental status changes. He was found to be in A. fib with RVR. She was admitted for treatment of CHF exacerbation as well as management of atrial fibrillation and started on IV Lasix and Cardizem. Today we stopped her Cardizem and increased her metoprolol. Her rates remained in the 120s. Patient seen and examined resting in bed, complaining that her back and bottom are sore from laying in bed. Still short of breath and coughing. Denies any chest pain. EXAMINATION Patient is afebrile, pulse in the 120s, respirations 20, blood pressure 102/67, oxygen saturation 94% on 4 L nasal cannula Patient seen and examined sitting in bed, in no acute distress Lungs are diminished bilaterally with few expiratory wheezes Heart is irregularly irregular, tachycardic, no audible murmurs Bilateral lower extremities are edematous, lateral heel ulcers are dressed REVIEW OF LABS, ECG Potassium 3.8, BUN 67, creatinine 1.14 INR 2.1 IMPRESSION / ASSESSMENT: systolic CHF acute on chronic, symptoms improving on IV diuresis chronic hypoxic respiratory failure with possibly component of chronic hypercapnic respiratory failure.. altered mental status and possibly due to a combination of COPD exacerbation and CHF exacerbation with CO2 narcosis COPD with chronic hypercapnic and hypoxic history failure paroxysmal atrial fibrillation, came in with supratherapeutic INR, she was likely on Coumadin however home medication list does not list Coumadin, previous discharge summary list eliquis INR is now 2.1, rates in the 120s previous history of DVT of lower extremity morbid obesity with a BMI of 44 bilateral heel ulcers post-debridement of the left heel ulcer hypertension hyperlipidemia osteoarthritis stage II kidney disease, chronic BUN and creatinine stable obstructive sleep apnea noncompliant to CPAP therapy unable to use decubitus ulceration involving the coccyx hypothyroidism rheumatoid arthritis PLAN: An echo was performed, awaiting results Increase metoprolol to 100 mg twice a day Continue IV diuresis Anticoagulation is indicated for this patient, she may have been on Coumadin at home but the discharge summary from a previous admission also list obdulio, would recommend either restarting Coumadin or starting a novel oral anticoag ulant, management of anticoagulation per admitting team Objective - Vital Signs Vital signs: Vital Signs Temp 97.5 F L 07/15/19 08:00 Pulse 129 H 07/15/19 08:00 Resp 20 07/15/19 08:00 BP 102/67 07/15/19 08:00 Pulse Ox 94 L 07/15/19 08:00 Intake & Output 07/14/19 07/15/19 07/15/19 18:59 06:59 18:59 Intake Total 200 600 Balance 200 600 Weight 120.202 kg Intake: Oral 200 600 Other: Voiding Method Indwelling Catheter Indwelling Catheter Indwelling Catheter # Voids 1 # Bowel Movements 1 - Labs CBC & Chem 7: 07/13/19 15:48 07/15/19 06:04 Labs: Abnormal Lab Results - Last 24 Hours (Table) 07/14/19 07/14/19 07/14/19 Range/Units 12:20 12:39 12:42 PT 24.4 H (9.0-12.0) sec INR 2.5 H (<1.2) ABG pCO2 64 H (35-45) mmHg ABG pO2 59 L* (83-108) mmHg ABG HCO3 43 H* (21-25) mmol/L ABG Total CO2 45 H (19-24) mmol/L ABG O2 Saturation 91.3 L (94-97) % Sodium (137-145) mmol/L Carbon Dioxide (22-30) mmol/L BUN (7-17) mg/dL Creatinine (0.52-1.04) mg/dL Glucose (74-99) mg/dL POC Glucose (mg/dL) 215 H (75-99) mg/dL 07/14/19 07/14/19 07/15/19 Range/Units 16:49 20:32 06:04 PT (9.0-12.0) sec INR (<1.2) ABG pCO2 (35-45) mmHg ABG pO2 (83-108) mmHg ABG HCO3 (21-25) mmol/L ABG Total CO2 (19-24) mmol/L ABG O2 Saturation (94-97) % Sodium 146 H (137-145) mmol/L Carbon Dioxide 40 H (22-30) mmol/L BUN 67 H (7-17) mg/dL Creatinine 1.14 H (0.52-1.04) mg/dL Glucose 157 H (74-99) mg/dL POC Glucose (mg/dL) 329 H 333 H (75-99) mg/dL 07/15/19 07/15/19 Range/Units 06:04 06:07 PT 20.1 H (9.0-12.0) sec INR 2.1 H (<1.2) ABG pCO2 (35-45) mmHg ABG pO2 (83-108) mmHg ABG HCO3 (21-25) mmol/L ABG Total CO2 (19-24) mmol/L ABG O2 Saturation (94-97) % Sodium (137-145) mmol/L Carbon Dioxide (22-30) mmol/L BUN (7-17) mg/dL Creatinine (0.52-1.04) mg/dL Glucose (74-99) mg/dL POC Glucose (mg/dL) 165 H (75-99) mg/dL
--- NOTE | 2019-07-15 11:59 | P.PN ---
Subjective Progress Note Date: 07/15/19 Principal diagnosis: Exacerbation of diastolic congestive heart failure 79-year-old morbidly obese female patient with a BMI of 44 known history of COPD and previous history of DVT, diastolic heart failure, diabetes mellitus and pressure ulcer of the heels, came into the hospital last week because of wounds in her lower extremities which have been painful and she has also noted drainage to the bilateral heels worse on the left. X-ray of the foot showed demineralization with diffuse subcutaneous emphysema. The patient was started on vancomycin and ID consultation was requested. Bone scan came back negative for osteomyelitis. Wound culture was positive for anaerobic gram-negative bacteria and gram-positive cocci. I was consulted on the case because the patient was having some shortness of breath. The CAT scan of the chest was done and the patient was found to have bilateral pleural effusion and atelectatic changes in lung bases bilaterally. No suspicious mediastinal mass. 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 No mediastinal lymphadenopathy. No pericardial effusion. There is some elevation of the right hemidiaphragm. There are 3 cm low-density left adrenal lesion was also seen. The patient also underwent debridement of the wound to the left. There was measuring 4 x 4 CM. All of the necrotic tissue and the devitalized tissue was removed. The wound was irrigated with saline and medical management was applied. A pressure dressing was also applied. During the course of her hospitalization, the patient was placed on diuretics ultimately she was discharged to [facility] nebulized [facility] around the clock on oral Lasix 40 mg twice a day and Zaroxolyn 5 mg once a week in addition to that the patient was also given a prednisone burst taper, discharge. She was also utilizing albuterol/Atrovent nebulized treatment [id number]. She was receiving IV cefepime at the long-term.. The wound cultures were obtained on 07/11/2019 showed Acinetobacter pneumoniae in addition to anaerobic gram-negative bacillus and gram-positive copious. The patient came in to the emergency department yesterday because of being lethargic and drowsy. She bounced back within 24 hours of being discharged home. She was complaining of shortness of breath and she has also altered mentation. The patient was found to be quite short of breath and tachypneic. Her white cell count was at 15.0. Hemoglobin was at 10.0. The patient a BUN of 69 with a creatinine of 1.2. Serum sodium level was 146 with a serum bicarb of 38. Her blood sugar was around 236 at time of admission and her BNP level was 7508 with a total protein of 6.0 and an albumin of 3.4. Cardiac enzymes/troponin's were negative. Echocardiogram Echo showed concentric LVH with an EF around 55%. The patient also has mild aortic sclerosis, moderate calcification of the mitral valve and the PA pressure 45 consistent with moderate to severe pulmonary hypertension. I saw this patient again in the emergency department. She was already receiving a pressure of 12/6 cm of water overnight with an FiO2 of 60%. Her chest x-ray shows Solu-Medrol small lateral pleural effusions. She has a elevated today hemidiaphragm. She is in atrial fibrillation. Mental status is improved for no w. She looks to be alert and awake. On 07/15/2019 she seen in follow-up on selective care unit, she remains on IV Lasix, she is in -460 mL fluid balance, she has been wearing BiPAP intermittently, with pressures of 12/6, and FiO2 of 60%, has quite significant lower extremity edema, but she states she is feeling better, and breathing easier, she is currently sitting up in the chair, on 4 L of oxygen and her pulse ox is 94%, today's labs have been reviewed, showing sodium of 146, potassium 3.8, chloride is 101, CO2 is 40, B1 is 67 creatinine is 1.14. Her Lasix dose is 40 mg every 12 hours in addition to weekly dose of Zaroxolyn. She is in atrial fibrillation, slightly tachycardic, with a rate of 102-129 BPM. She is on IV antibiotics for Acinetobacter pneumonia in her lower extremity wounds Objective - Vital Signs Vital signs: Vital Signs Temp 97.5 F L 07/15/19 08:00 Pulse 102 H 07/15/19 11:30 Resp 20 07/15/19 08:00 BP 102/67 07/15/19 08:00 Pulse Ox 94 L 07/15/19 08:00 Intake & Output 07/14/19 07/15/19 07/15/19 18:59 06:59 18:59 Intake Total 200 840 Output Total 1300 Balance 200 -460 Weight 120.202 kg Intake: Oral 200 840 Output: Urine 1300 Other: Voiding Method Indwelling Catheter Indwelling Catheter Indwelling Catheter # Voids 1 # Bowel Movements 1 - Exam Gen. appearance obese, comfortable likely distress PMI is 44, she is not having any significant respiratory distress. She is off the BiPAP for now on 4 L of oxygen by nasal cannula. She was using BiPAP overnight at a pressure of 12/6 with an FiO2 of 60%. Head exam was generally normal. There was no scleral icterus or corneal arcus. Mucous membranes were moist. Neck was supple and without jugular venous distension, thyromegaly, or carotid bruits. Carotids were easily palpable bilaterally. There was no adenopathy. Lungs sounds are diminished in the lower lung whitt bilaterally along with some dullness to percussion. No wheezes or rhonchi. The breath sounds are more diminished on the right compared to the left. Cardiac exam revealed the PMI to be normally situated and sized. The rhythm was irregular secondary to atrial fibrillation and and no extrasystoles were noted during several minutes of auscultation. The first and second heart sounds were normal and physiologic splitting of the second heart sound was noted. There were no murmurs, rubs, clicks, or gallops. Abdominal exam revealed normal bowel sounds. The abdomen was soft, non-tender, and without masses, organomegaly, or appreciable enlargement of the abdominal aorta. Organs cannot be accurately palpated as patient is obese extremities revealed +1-2 pitting edema addition to diminished pulses in lower extremities bilaterally and the patient has a 4 x 4 centimeter left heel ulcer that was debrided today and another 1 cm ulcer with central dilation tissue on the right Neurologically awake and alert and there is no focal neurological deficit there is motor weakness lower extremities bilaterally. - Labs CBC & Chem 7: 07/13/19 15:48 07/15/19 06:04 Labs: Abnormal Lab Results - Last 24 Hours (Table) 07/14/19 07/14/19 07/14/19 Range/Units 12:20 12:39 12:42 PT 24.4 H (9.0-12.0) sec INR 2.5 H (<1.2) ABG pCO2 64 H (35-45) mmHg ABG pO2 59 L* (83-108) mmHg ABG HCO3 43 H* (21-25) mmol/L ABG Total CO2 45 H (19-24) mmol/L ABG O2 Saturation 91.3 L (94-97) % Sodium (137-145) mmol/L Carbon Dioxide (22-30) mmol/L BUN (7-17) mg/dL Creatinine (0.52-1.04) mg/dL Glucose (74-99) mg/dL POC Glucose (mg/dL) 215 H (75-99) mg/dL 07/14/19 07/14/19 07/15/19 Range/Units 16:49 20:32 06:04 PT (9.0-12.0) sec INR (<1.2) ABG pCO2 (35-45) mmHg ABG pO2 (83-108) mmHg ABG HCO3 (21-25) mmol/L ABG Total CO2 (19-24) mmol/L ABG O2 Saturation (94-97) % Sodium 146 H (137-145) mmol/L Carbon Dioxide 40 H (22-30) mmol/L BUN 67 H (7-17) mg/dL Creatinine 1.14 H (0.52-1.04) mg/dL Glucose 157 H (74-99) mg/dL POC Glucose (mg/dL) 329 H 333 H (75-99) mg/dL 07/15/19 07/15/19 Range/Units 06:04 06:07 PT 20.1 H (9.0-12.0) sec INR 2.1 H (<1.2) ABG pCO2 (35-45) mmHg ABG pO2 (83-108) mmHg ABG HCO3 (21-25) mmol/L ABG Total CO2 (19-24) mmol/L ABG O2 Saturation (94-97) % Sodium (137-145) mmol/L Carbon Dioxide (22-30) mmol/L BUN (7-17) mg/dL Creatinine (0.52-1.04) mg/dL Glucose (74-99) mg/dL POC Glucose (mg/dL) 165 H (75-99) mg/dL Assessment and Plan Plan: Assessment: 1 CHF with diastolic heart failure, and the patient has small bilateral pleural effusions. She does have small lung volumes and some limited atelectatic changes in lung bases. 2 bilateral pleural effusion secondary to above 3 chronic hypoxic respiratory failure with possibly component of chronic hypercapnic respiratory failure.. The patient's has more than 40 tachycardia smoking history and I'm sure she has a component of COPD along with a component of obesity hypoventilation syndrome/obstructive sleep apnea. This has been officially confirmed and the patient has not been able to tolerate CPAP. I think this is something to consider that again in the future 4 altered mental status and possibly due to a combination of COPD exacerbation and CHF exacerbation with CO2 narcosis, insulin-dependent therapy and diuresis 5 COPD with chronic hypercapnic and hypoxic history failure 6 previous history of DVT of lower extremity currently on anticoagulation with a therapeutic PT/INR 7 morbid obesity with a BMI of 44 8 bilateral heel ulcers post-debridement of the left heel ulcer measuring 4x4 cm cultures of been sent and the patient is currently covered with antibiotics 9 history of atrial fibrillation, the PT/INR is therapeutic for now with an INR of 2.4 10 hypertension 11 hyperlipidemia 12 osteoarthritis 13 stage II kidney disease, chronic 14 obstructive sleep apnea noncompliant to CPAP therapy unable to use 15 decubitus ulceration involving the coccyx 16 previous history of UTI with sepsis and the patient suffers from incontinence of the urine 17 gout 18 hypothyroidism 19 history of vertigo 20 rheumatoid arthritis 21 gout 22 mild leukocytosis 23 chronic metabolic alkalosis probably related to chronic hypercapnic respiratory failure Plan: Continue with diuretics, continue antibiotics per ID service recommendations. Patient is breathing easier, she is in negative fluid balance, may use BiPAP support at bedtime and as needed, patient states she does have a CPAP machine at home she has not been wearing. It was stressed to her that being compliant with the CPAP would probably decrease the rate of hospitalizations for competitions related to CHF exacerbation. Continue nebulized bronchodilators, encouraged to breathing coughing, we'll continue to follow I performed a history & physical examination of the patient and discussed their management with my nurse practitioner, Sana Villalta. I reviewed the nurse practitioner's note and agree with the documented findings and plan of care. Lung sounds are positive for diminished breath sounds. The findings and the impression was discussed with the patient. I attest to the documentation by the nurse practitioner. Time with Patient: Less than 30
[2019-07-15 12:32] LABS: Glucose,Whole Blood 187 mg/dL (75-99)
--- NOTE | 2019-07-15 12:43 | ECHOF ---
Referral Reason:chf, afib MEASUREMENTS -------- HEIGHT: 162.6 cm WEIGHT: 120.2 kg BP: 131/90 RVIDd: 4.1 cm (< 3.3) IVSd: 1.3 cm (0.6 - 1.1) LVIDd: 3.5 cm (3.9 - 5.3) LVPWd: 1.4 cm (0.6 - 1.1) IVSs: 1.9 cm LVIDs: 2.7 cm LVPWs: 1.5 cm LA Diam: 4.1 cm (2.7 - 3.8) LAESV Index (A-L): 52.16 ml/m Ao Diam: 2.7 cm (2.0 - 3.7) AV Cusp: 1.6 cm (1.5 - 2.6) AV maxP.70 mmHg AV meanP.45 mmHg RAP: 15.00 mmHg RVSP: 52.39 mmHg FINDINGS -------- Atrial fibrillation. This was a technically adequate study. The left ventricular size is normal. There is moderate concentric left ventricular hypertrophy. O verall left ventricular systolic function is low-normal with, an EF between 50 - 55 %. The right ventricle is severely enlarged. LA is severely dilated >40 ml/m2 The right atrium is normal in size. Interatrial and interventricular septum intact. There is mild aortic valve sclerosis. Trace to mild aortic regurgitation. There is mild aortic st enosis present. Peak/mean gradient across the Aortic Valve is 16.70mmHg / 6.45mmHg. The mitral valve leaflets are moderate to severely thickened. Moderate mitral annular calcification present. Zvobghwf-wp-bmuwoi mitral regurgitation is present. Severe tricuspid regurgitation present. There is moderate pulmonary hypertension. The right ventr icular systolic pressure, as measured by Doppler, is 52.39mmHg. Trace/mild (physiologic) pulmonic regurgitation. The aortic root size is normal. The inferior vena cava is dilated with no significant inspiratory collapse which is consistent estima kathie right atrial pressure of >15 mmHg. There is no pericardial effusion. CONCLUSIONS -------- 1. Atrial fibrillation. 2. This was a technically adequate study. 3. The left ventricular size is normal. 4. There is moderate concentric left ventricular hypertrophy. 5. Overall left ventricular systolic function is low-normal with, an EF between 50 - 55 %. 6. The right ventricle is severely enlarged. 7. LA is severely dilated >40 ml/m2 8. The right atrium is normal in size. 9. Interatrial and interventricular septum intact. 10. There is mild aortic valve sclerosis. 11. Trace to mild aortic regurgitation. 12. There is mild aortic stenosis present. 13. Peak/mean gradient across the Aortic Valve is 16.70mmHg / 6.45mmHg. 14. The mitral valve leaflets are moderate to severely thickened. 15. Moderate mitral annular calcification present. 16. Jokohvyh-gr-hyzcqa mitral regurgitation is present. 17. Severe tricuspid regurgitation present. 18. There is moderate pulmonary hypertension. 19. The right ventricular systolic pressure, as measured by Doppler, is 52.39mmHg. 20. Trace/mild (physiologic) pulmonic regurgitation. 21. The aortic root size is normal. 22. The inferior vena cava is dilated with no significant inspiratory collapse which is consistent es timated right atrial pressure of >15 mmHg. 23. There is no pericardial effusion. [employer]: EBER Dalton
--- NOTE | 2019-07-15 15:28 | CDI ---
Documentation Clarification Form Date: 07/15/2019 03:16:24 PM From: Yanet Salcido RN, CCDS Admit Date: 07/13/2019 04:46:00 PM Patient Name: Tamar Dominguez Visit Number: [id number] ATTENTION: The Clinical Documentation Specialists (CDI) and [facility] Coding Staff appreciate your assistance in clarifying documentation. Please respond to the clarification below the line at the bottom and electronically sign. The CDI & [facility] Coding staff will review the response and follow-up if needed. Please note: Queries are made part of the Legal Health Record. If you have any questions, please contact the author of this message via ITS. Dr. Dominick Rosen Altered Mental Status was documented in the Consults and progress notes and requires further specificity History/Risk Factors: Acute exacerbation of COPD, Acute pulmonary edema, A/C Diastolic CHF, Atrial Fib RVR, Home O2 at 2l NC, JOSR, CKD stage 3 Clinical Indicators: 07/15 Cardiology Consult: "altered mental status and possibly due to a combination of COPD exacerbation and CHF exacerbation with CO2 narcosis 07/15 Pulmonary: "The mental status was altered apparently at the time of admission which seems to have improved." Labs: WBC 15, Hgb 10.8, neutrophils 13.8, BUN 69/73/67, Creatinine 1.2/1.02/1.14 Echo: EF 50-55% CXR: cardiomegly bibasilar effusions, PAH Treatment: Oxygen Duoneb Updrafts IV Unasyn In your professional opinion, please clarify the etiology of the Altered Mental Status, if known. Delirium (specify cause): Encephalopathy (specify Type- Metabolic, toxic, Anoxic, etc and Underlying Medical Illness) Other condition (please specify) Unable to determine (Last Revision: September 2017) Metabolic encephalopathy MTDD
[2019-07-15] MEDS: AMPICILLIN-SULBACTAM 3 GM in SODIUM CHLORIDE 0.9% 100 ML IVPB SCH ×2 (16:48→23:34)
[2019-07-15 17:00] LABS: Glucose,Whole Blood 285 mg/dL (75-99)
[2019-07-15] MEDS ORDERED: WARFARIN 5 MG TAB PO ONE (18:00)
[2019-07-15] MEDS ORDERED: WARFARIN 2.5 MG TAB PO ONE (18:00)
--- NOTE | 2019-07-15 18:18 | P.PN ---
Subjective Progress Note Date: 07/15/19 Tamar Dominguez is an 79 yo F with PMH of systolic CHF, persistent atrial fibrillation, COPD, T2DM, hx DVT, lymphedema, was recently admitted last week from the wound center due to worsening pressure ulcer in her heel. She was seen by ID and vascular surgery at that time, underwent bone scan which was negative for osteomyelitis, underwent bedside debridement and was discharged to [facility]. During her hospitalization she was continued on her home dose of oral lasix 40 mg bid and metalozone 5 mg weekly. She was also discharged on a prednisone taper and recommended to continue duonebs. She returned to the ED 24 hours after discharge with shortness of breath. She was found to be tachypneic, WBC 15k, BUN 69, Cr 1.2, she was in atrial fibrillation at ventricular rate of 130 bpm. Pt was placed on BiPAP and given a dose of IV lasix. 07/15/2019 diuresing well on Lasix IV push with 24-hour I&O reflecting a negative fluid balance. Creatinine 1.14. Bilateral lower extremity edema improving BiPAP at bedside, wore during the night.Maintained on IV antibiotics of Unasyn , nebulized bronchodilators, steroids. Breathing improved reports nonproductive cough. Maintaining O2 sats in the 90s on 4 L nasal cannula. Telemetry reporting atrial fibrillation with rate better controlled, ranging from 100s to 120s. Cardizem drip discontinued, beta darius increased. Objective - Vital Signs Vital signs: Vital Signs Temp 97.9 F 07/15/19 15:55 Pulse 106 H 07/15/19 15:55 Resp 20 07/15/19 15:55 BP 105/70 07/15/19 15:55 Pulse Ox 97 07/15/19 15:55 Intake & Output 07/14/19 07/15/19 07/15/19 18:59 06:59 18:59 Intake Total 200 1080 Output Total 1825 Balance 200 -745 Weight 120.202 kg Intake: Oral 200 1080 Output: Urine 1825 Other: Voiding Method Indwelling Catheter Indwelling Catheter Indwelling Catheter # Voids 1 # Bowel Movements 1 - Exam General: obese female in NAD. Vitals reviewed, sitting up in chair Eyes: PERRL, EOMI, conjunctiva normal HENT: normocephalic, mucus membranes moist Neck: supple, no JVD Lungs: diminished air entry, bibasilar rales, no wheezing CV: Irregularly irregular, systolic murmur. Peripheral pulses 1+ Abdomen: soft, nondistended, no organomegaly Ext: bilateral LE with decreasing edema, tender. Bilateral lower extremity dressings clean dry and intact Skin: warm and dry. Neuro: A&Ox3, normal mood and affect - Labs CBC & Chem 7: 07/13/19 15:48 07/15/19 06:04 Labs: Abnormal Lab Results - Last 24 Hours (Table) 07/14/19 07/15/19 07/15/19 Range/Units 20:32 06:04 06:04 PT 20.1 H (9.0-12.0) sec INR 2.1 H (<1.2) Sodium 146 H (137-145) mmol/L Carbon Dioxide 40 H (22-30) mmol/L BUN 67 H (7-17) mg/dL Creatinine 1.14 H (0.52-1.04) mg/dL Glucose 157 H (74-99) mg/dL POC Glucose (mg/dL) 333 H (75-99) mg/dL 07/15/19 07/15/19 07/15/19 Range/Units 06:07 12:30 16:57 PT (9.0-12.0) sec INR (<1.2) Sodium (137-145) mmol/L Carbon Dioxide (22-30) mmol/L BUN (7-17) mg/dL Creatinine (0.52-1.04) mg/dL Glucose (74-99) mg/dL POC Glucose (mg/dL) 165 H 187 H 285 H (75-99) mg/dL Assessment and Plan Assessment: (1) Acute exacerbation of chronic obstructive pulmonary disease Current Visit: Yes Status: Acute Code(s): J44.1 - CHRONIC OBSTRUCTIVE PULMONARY DISEASE W (ACUTE) EXACERBATION SNOMED Code(s): 711644883 (2) Acute pulmonary edema Current Visit: Yes Status: Acute Code(s): J81.0 - ACUTE PULMONARY EDEMA SNOMED Code(s): 63648333 (3) Acute on chronic diastolic (congestive) heart failure Current Visit: No Status: Acute Code(s): I50.33 - ACUTE ON CHRONIC DIASTOLIC (CONGESTIVE) HEART FAILURE SNOMED Code(s): 760798663 (4) Atrial fibrillation with rapid ventricular response Current Visit: No Status: Acute Code(s): I48.91 - UNSPECIFIED ATRIAL FIBRILLATION SNOMED Code(s): 795328449172396 (5) Type 2 diabetes mellitus Current Visit: No Status: Acute Code(s): E11.9 - TYPE 2 DIABETES MELLITUS WITHOUT COMPLICATIONS SNOMED Code(s): 17200724 (6) acute on chronic hypercapnic, hypoxic respiratory failure (7) bilateral heel ulcers status post debridement of left heel ulcer, cultures pending (8) bilateral pleural effusions secondary to CHF (9) morbid obesity, BMI 45.5 (10) chronic kidney disease, stage II (11) obstructive sleep apnea, noncompliant with CPAP Plan: Continue on current medication regime ,monitoring and to inspect treatment. PT/OT. Antibiotics/Wound Care as per infectious disease. Aggressive pulmonary toileting. Echo pending. Anticoagulation as per cardiology. The impression and plan of care has been dictated as directed. : I performed a history and examination of this patient, discussed the same with the dictator. I agree with the dictator's note ,documented as a scribe. Any additional findings or plans will be noted.
[2019-07-15 18:52] LABS: Magnesium 2.2 mg/dL (1.6-2.3); Potassium 4.7 mmol/L (3.5-5.1)
[2019-07-15] MEDS: ATORVASTATIN 40 MG TAB PO SCH (19:57)
[2019-07-15 20:36] LABS: Glucose,Whole Blood 359 mg/dL (75-99)
[2019-07-15] MEDS: INSULIN DETEMIR (LEVEMIR) 100 UNIT/ML SYR SQ SCH (21:11)
--- NOTE | 2019-07-15 23:30 | CONS ---
CONSULTATION DATE OF SERVICE: 07/15/2019 REASON FOR CONSULTATION: Left heel wound cellulitis and antibiotic recommendations. HISTORY OF PRESENT ILLNESS: The patient is an 79-year-old female who was recently admitted to this facility. The patient did have bilateral heel pressure ulcer left greater than the right. The patient did have bedside debridement done and the cultures were pending by the time the patient discharged to the assisted. She did get a PICC line and was getting cefepime 2 g q.12h and oral Flagyl. The patient has been brought back to [facility] within 24 hours with concern for increasing shortness of breath and mental status changes. The patient subsequently has been diagnosed with CHF and . The patient did have a chest x-ray on admission shows cardiomegaly with bibasilar effusion. The patient has been afebrile since admission to the hospital and the patient white count was elevated and the patient has not been repeated since then. The patient has been continue on Cefepime while monitoring the patient for this condition regarding antibiotic therapy. The patient is currently mentioning her breathing has slightly improved. The patient denies any chest pain, some cough but not bringing up any sputum. No nausea, no vomiting. Still complaining of some pain to the left heel area, but no worsening. REVIEW OF SYSTEMS: Positive points have been mentioned in HPI. Rest of systems are negative. PAST MEDICAL HISTORY: Past medical history of atrial fibrillation, heart failure, COPD, diabetes mellitus, hypertension, hyperlipidemia. Sleep apnea and bilateral heel pressure ulcer. PAST SURGICAL HISTORY: Heart catheterization, hysterectomy, right total knee replacement, left foot heel spur, EGD and colonoscopy. SOCIAL HISTORY: Remote history of smoking. No drinking or drug use. FAMILY HISTORY: Mother with history of , father with history of coronary artery disease. ALLERGIES: TO SULFA AND TETANUS TOXOID. MEDICATIONS: The patient is currently on Tylenol, DuoNeb, Zyloprim, Celebrex, she is on Cefepime 2 gm q12, Lipitor, Colace, Lasix, NovoLog, Levemir, Synthroid, Cytomel, Antivert, Zaroxolyn and Lopressor. PHYSICAL EXAMINATION: Blood pressure 135/70 with a pulse of 106, temperature 97.9. She is 96% on 4 L nasal cannula. General description is an elderly female lying in bed in no distress. No tachypnea or accessory muscles for respiration use. HEENT: Shows pallor. No scleral icterus. Oral mucosal membranes dry. No pharyngeal erythema or thrush. Neck: Trachea central. No thyromegaly. Lungs unlabored breathing, decreased breath sounds in the bases. No wheeze. Heart S1, S2. Regular rate and rhythm. Abdomen soft, no tenderness. Left heel wound with left slough tissue with no necrotic tissue and some surrounding swelling or redness. No redness and no drainage. LABS: Admission white count was 15, on repeat is . No cultures. DIAGNOSTIC IMPRESSION AND PLAN: Patient with left heel stage III pressure ulcer with secondary cellulitis. The patient is status post debridement. Those cultures have not been finalized, Acinetobacter Baumii initially with no evidence of any deep infection, no osteomyelitis, as the bone scan was negative. Anaerobic gram-negative with no evidence of any deep infection or osteomyelitis as the bone scan was negative on last admission. PLAN: 1. Discontinue cefepime and Flagyl. 2. Start the patient on Unasyn 3 g q.6 hours .. 3. Local wound care to the left heel wound with Medihoney followed by moist dressing to keep the area off the pressure. 4. We will follow up on clinical condition and culture to further adjust medication if needed thank you for this consultation. Will follow this patient with you. MMODL / IJN: [id number] /
[2019-07-16] MEDS: IPRATROPIUM-ALBUTEROL 3 ML NEB INHALATION SCH ×6 (01:18→19:39)
[2019-07-16 05:49] LABS: Glucose,Whole Blood 131 mg/dL (75-99)
[2019-07-16] MEDS: INSULIN ASPART (NovoLOG) 100 UNIT/ML VIAL SQ SCH ×4 (05:55→21:34)
[2019-07-16] MEDS: LEVOTHYROXINE 88 MCG TAB PO SCH (05:55)
[2019-07-16] MEDS: AMPICILLIN-SULBACTAM 3 GM in SODIUM CHLORIDE 0.9% 100 ML IVPB SCH ×3 (05:57→17:22)
[2019-07-16 07:31] LABS: INR 1.7 (<1.2); Prothrombin Time 16.5 sec (9.0-12.0)
[2019-07-16 07:43] LABS: Calcium 8.8 mg/dL (8.4-10.2); Magnesium 2.3 mg/dL (1.6-2.3)
[2019-07-16] MEDS: POTASSIUM CHLORIDE ER 20 MEQ TAB.ER PO SCH (08:46)
[2019-07-16] MEDS: FUROSEMIDE 10 MG/ML 4 ML VIAL IV SCH ×2 (08:46→20:08)
[2019-07-16] MEDS: ALLOPURINOL 300 MG TAB PO SCH (08:46)
[2019-07-16] MEDS: DOCUSATE 100 MG CAP PO SCH (08:46)
[2019-07-16] MEDS: SPIRONOLACTONE 25 MG TAB PO SCH (08:46)
[2019-07-16] MEDS: METOPROLOL TARTRATE 50 MG TAB PO SCH ×2 (08:46→20:09)
[2019-07-16] MEDS: ISOSORBIDE MONONITRATE ER 30 MG TAB.ER.24H PO SCH (08:46)
[2019-07-16] MEDS: PANTOPRAZOLE 40 MG TABLET PO SCH (08:46)
[2019-07-16] MEDS: MECLIZINE 12.5 MG TAB PO SCH ×3 (08:47→21:35)
[2019-07-16] MEDS: LIOTHYRONINE SODIUM 5 MCG TAB PO SCH (08:47)
[2019-07-16] MEDS: NON FORMULARY DRUG (Ubidecarenone [Co Q-10] 200 MG) PO SCH (08:47)
--- NOTE | 2019-07-16 11:07 | P.PN ---
Subjective Progress Note Date: 07/16/19 The patient is seen today 07/16/2019 in follow-up on the selective care unit. She is currently sitting up in a chair at the bedside. Awake and alert in no acute distress. Breathing a bit easier today compared to yesterday. Maintaining O2 saturations in the 90s on 3 L/m per nasal cannula. Lower extrem ity edema continues. Dressings in place around the ankles. She remains in a negative balance. Currently 2.4 L negative. Continue on Lasix 40 mg IV every 12 hours. Creatinine 1.09. INR 1.7. Continued on Unasyn. Objective - Vital Signs Vital signs: Vital Signs Temp 98.1 F 07/16/19 08:00 Pulse 83 07/16/19 08:48 Resp 18 07/16/19 08:00 BP 128/73 07/16/19 08:00 Pulse Ox 97 07/16/19 08:00 Intake & Output 07/15/19 07/16/19 07/16/19 18:59 06:59 18:59 Intake Total 1080 Output Total 1825 1750 Balance -745 -1750 Weight 129 kg Intake: Oral 1080 Output: Urine 1825 1750 Other: Voiding Method Indwelling Catheter Indwelling Catheter Indwelling Catheter - Exam Gen. appearance is an 79-year-old female patient, obese, comfortable likely distress BMI is 48, she is not having any significant respiratory distress. She is off the BiPAP for now on 3 L of oxygen by nasal cannula. She was using BiPAP overnight at a pressure of 12/6 with an FiO2 of 60%. Head exam was generally normal. There was no scleral icterus or corneal arcus. Mucous membranes were moist. Neck was supple and without jugular venous distension, thyromegaly, or carotid bruits. Carotids were easily palpable bilaterally. There was no adenopathy. Lungs sounds are diminished in the lower lung whitt bilaterally along with some dullness to percussion. No wheezes or rhonchi. The breath sounds are more diminished on the right compared to the left. Cardiac exam revealed the PMI to be normally situated and sized. The rhythm was irregular secondary to atrial fibrillation and and no extrasystoles were noted during several minutes of auscultation. The first and second heart sounds were normal and physiologic splitting of the second heart sound was noted. There were no murmurs, rubs, clicks, or gallops. Abdominal exam revealed normal bowel sounds. The abdomen was soft, non-tender, and without masses, organomegaly, or appreciable enlargement of the abdominal aorta. Organs cannot be accurately palpated as patient is obese extremities revealed +1-2 pitting edema addition to diminished pulses in lower extremities bilaterally and the patient has a 4 x 4 centimeter left heel ulcer that was debrided today and another 1 cm ulcer with central dilation tissue on the right Neurologically awake and alert and there is no focal neurological deficit there is motor weakness lower extremities bilaterally. - Labs CBC & Chem 7: 07/13/19 15:48 07/16/19 06:16 Labs: Abnormal Lab Results - Last 24 Hours (Table) 07/15/19 07/15/19 07/15/19 Range/Units 12:30 16:57 20:33 PT (9.0-12.0) sec INR (<1.2) Carbon Dioxide (22-30) mmol/L BUN (7-17) mg/dL Creatinine (0.52-1.04) mg/dL Glucose (74-99) mg/dL POC Glucose (mg/dL) 187 H 285 H 359 H (75-99) mg/dL 07/16/19 07/16/19 07/16/19 Range/Units 05:47 06:16 06:16 PT 16.5 H (9.0-12.0) sec INR 1.7 H (<1.2) Carbon Dioxide 39 H (22-30) mmol/L BUN 61 H (7-17) mg/dL Creatinine 1.09 H (0.52-1.04) mg/dL Glucose 110 H (74-99) mg/dL POC Glucose (mg/dL) 131 H (75-99) mg/dL Assessment and Plan Assessment: Assessment: 1 CHF with diastolic heart failure, and the patient has small bilateral pleural effusions. She does have small lung volumes and some limited atelectatic changes in lung bases. 2 bilateral pleural effusion secondary to above 3 chronic hypoxic respiratory failure with possibly component of chronic hypercapnic respiratory failure.. The patient's has more than 40 pack year smoking history and she has a component of COPD along with a component of obesity hypoventilation syndrome/obstructive sleep apnea. This has been officially confirmed and the patient has not been able to tolerate CPAP. I think this is something to consider that again in the future 4 altered mental status and possibly due to a combination of COPD exacerbation and CHF exacerbation with CO2 narcosis, insulin-dependent therapy and diuresis 5 COPD with chronic hypercapnic and hypoxic history failure 6 previous history of DVT of lower extremity currently on anticoagulation with a therapeutic PT/INR 7 morbid obesity with a BMI of 44 8 bilateral heel ulcers post-debridement of the left heel ulcer measuring 4x4 cm cultures of been sent and the patient is currently covered with antibiotics 9 history of atrial fibrillation, the PT/INR is subtherapeutic for now with an INR of 1.7 10 hypertension 11 hyperlipidemia 12 osteoarthritis 13 stage II kidney disease, chronic 14 obstructive sleep apnea noncompliant to CPAP therapy unable to use 15 decubitus ulceration involving the coccyx 16 previous history of UTI with sepsis and the patient suffers from incontinence of the urine 17 gout 18 hypothyroidism 19 history of vertigo 20 rheumatoid arthritis 21 gout 22 mild leukocytosis 23 chronic metabolic alkalosis probably related to chronic hypercapnic respiratory failure Plan: The patient was seen and evaluated by Dr. Patrick. She is improved today compared to yesterday. Still not quite back to her baseline. Continue the current treatment plan. She remains on IV diuretics, Unasyn, bronchodilators. Anticoagulated with warfarin. We'll continue to follow. I, the cosigning physician, performed a history & physical examination of the patient. Lungs sounds diminished in the bilateral posterior bases Maintaining good O2 saturations in the 90s on 3 L/m per nasal cannula. I discussed the assessment and plan of care with my nurse practitioner, Berkley Yost. I attest to the above note as dictated by her.
[2019-07-16 11:47] LABS: Glucose,Whole Blood 239 mg/dL (75-99)
[2019-07-16] MEDS: NYSTATIN 100,000 UNIT/ML SUSP 500,000 UNIT/5 ML CUP PO SCH ×3 (15:52→21:35)
[2019-07-16] MEDS: guaiFENesin-DM 100-10MG/5ML 10 ML CUP PO PRN (15:52)
--- NOTE | 2019-07-16 16:00 | P.PN ---
Subjective 79 yo F with PMH of systolic CHF, persistent atrial fibrillation, COPD, T2DM, hx DVT, lymphedema, was recently admitted last week from the wound center due to worsening pressure ulcer in her heel. She was seen by ID and vascular surgery at that time, underwent bone scan which was negative for osteomyelitis, underwent bedside debridement and was discharged to [facility]. During her hospitalization she was continued on her home dose of oral lasix 40 mg bid and metalozone 5 mg weekly. She was also discharged on a prednisone taper and recommended to continue duonebs. She returned to the ED 24 hours after discharge with shortness of breath. She was found to be tachypneic, WBC 15k, BUN 69, Cr 1.2, she was in atrial fibrillation at ventricular rate of 130 bpm. Pt was placed on BiPAP and given a dose of IV lasix. 07/15/2019 diuresing well on Lasix IV push with 24-hour I&O reflecting a negative fluid balance. Creatinine 1.14. Bilateral lower extremity edema improving BiPAP at bedside, wore during the night.Maintained on IV antibiotics of Unasyn , nebulized bronchodilators, steroids. Breathing improved reports nonproductive cough. Maintaining O2 sats in the 90s on 4 L nasal cannula. Telemetry reporting atrial fibrillation with rate better controlled, ranging from 100s to 120s. Cardizem drip discontinued, beta darius increased. 07/16/2019 No overnight events patient wanted to go home but patient related to be discharged to subacute rehabilitation patient appears to have chronic bilateral pedal edema patient remains on IV Lasix. Patient is on Unasyn as well. Constitutional: Denied any fatigue denied any fever. Cardio vascular: denied any chest pain, palpitations Gastrointestinal denied any nausea vomiting Pulmonary: Denied any shortness of breath cough Neurologic denied any new focal deficits All inpatient medications were reviewed and appropriate changes in these medications as dictated in the interval history and assessment and plan.. Objective - Vital Signs Vital signs: Vital Signs Temp 98.1 F 07/16/19 08:00 Pulse 86 07/16/19 11:54 Resp 16 07/16/19 11:00 BP 114/60 07/16/19 11:00 Pulse Ox 97 07/16/19 11:00 Intake & Output 07/15/19 07/16/19 07/16/19 18:59 06:59 18:59 Intake Total 1080 100 Output Total 1825 1750 1999 Balance -379 -6802 -1908 Weight 129 kg Intake: Intake, IV Titration 100 Amount Ampicillin-Sulbactam 3 gm 100 In Sodium Chloride 0.9% 100 ml @ 200 mls/hr IVPB Q6HR [facility] Rx#:[id number] Oral 1080 Output: Urine 1825 1750 1999 Other: Voiding Method Indwelling Catheter Indwelling Catheter Indwelling Catheter # Bowel Movements 1 - Exam PHYSICAL EXAMINATION: GENERAL: The patient is alert and oriented x3, not in any acute distress. Well developed, well nourished. Obese HEENT: Pupils are round and equally reacting to light. EOMI. No scleral icterus. No conjunctival pallor. Normocephalic, atraumatic. No pharyngeal erythema. No thyromegaly. CARDIOVASCULAR: S1 and S2 present. No murmurs, rubs, or gallops. PULMONARY: Chest is clear to auscultation, no wheezing or crackles. ABDOMEN: Soft, nontender, nondistended, normoactive bowel sounds. No palpable organomegaly. MUSCULOSKELETAL: No joint swelling or deformity. EXTREMITIES: No cyanosis, clubbing, extensive bilateral pedal edema up is to be chronic mostly nonpitting there is areas of pitting pedal edema is chronic venous dermatosis. NEUROLOGICAL: Gross neurological examination did not reveal any focal deficits. SKIN: No rashes. - Labs CBC & Chem 7: 07/13/19 15:48 07/16/19 06:16 Labs: Abnormal Lab Results - Last 24 Hours (Table) 07/15/19 07/15/19 07/16/19 Range/Units 16:57 20:33 05:47 PT (9.0-12.0) sec INR (<1.2) Carbon Dioxide (22-30) mmol/L BUN (7-17) mg/dL Creatinine (0.52-1.04) mg/dL Glucose (74-99) mg/dL POC Glucose (mg/dL) 285 H 359 H 131 H (75-99) mg/dL 07/16/19 07/16/19 07/16/19 Range/Units 06:16 06:16 11:45 PT 16.5 H (9.0-12.0) sec INR 1.7 H (<1.2) Carbon Dioxide 39 H (22-30) mmol/L BUN 61 H (7-17) mg/dL Creatinine 1.09 H (0.52-1.04) mg/dL Glucose 110 H (74-99) mg/dL POC Glucose (mg/dL) 239 H (75-99) mg/dL Assessment and Plan Plan: --Acute hypoxic respiratory failure segment CHF exacerbation patient is on IV Lasix which will be continued patient appears to have diastolic dysfunction it -Chronic obstructive pulmonary disease and chronic hypercapnic respiratory failure secondary to COPD does use oxygen at home -Atrial fibrillation presently rate controlled patient to Coumadin is subtherapeutic although pharmacy is doing that dosing -Type 2 diabetes mellitus next and-bilateral also is due to venous stasis -Bilateral lower limb chronic venous stasis dermatosis [place]-morbid obesity -Chronic kidney disease stage II -Obstructive sleep apnea noncompliant with CPAP -Altered mental status on admission metabolic and toxic -Hypertension next and-hyperlipidemia -Hypothyroidism
[2019-07-16 16:38] LABS: Glucose,Whole Blood 169 mg/dL (75-99)
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
[2019-07-16] MEDS ORDERED: WARFARIN 5 MG TAB PO ONE (18:00)
[2019-07-16] MEDS: ATORVASTATIN 40 MG TAB PO SCH (20:09)
[2019-07-16] MEDS: traMADol 50 MG TAB PO PRN (20:28)
[2019-07-16 21:31] LABS: Glucose,Whole Blood 223 mg/dL (75-99)
[2019-07-16] MEDS: INSULIN DETEMIR (LEVEMIR) 100 UNIT/ML SYR SQ SCH (21:34)
--- NOTE | 2019-07-16 23:52 | PN ---
PROGRESS NOTE DATE OF SERVICE: 07/16/2019 REASON FOR FOLLOWUP: Infected pressure ulcer. INTERVAL HISTORY: The patient is currently afebrile. She is breathing comfortably. Denies having any chest pain or shortness of breath. Did have some cough, not bringing up any sputum. No nausea. No abdominal pain or any worsening pain to the left heel area. PHYSICAL EXAMINATION: Blood pressure is 92/57 with a pulse of 95, temperature 98. She is 96% on 4 L nasal cannula. General description is an elderly female up in the chair in no distress. Respiratory system: Unlabored breathing, decreased breath sounds in the base, with no wheeze. Heart S1, S2. Regular rate and rhythm. Abdomen soft, no tenderness. LEGS: Currently dressed up. No obvious drainage on the dressing. LABS: Creatinine 1.09. No cultures this admission. DIAGNOSTIC IMPRESSION AND PLAN: Patient with left he infected stage III pressure ulcer, status post surgical repair with concern has been history back to an open. The patient is currently covered with Unasyn to continue local wound care with [facility]. Keep the area off the pressure. Continue supportive care. MMODL / IJN: [id number] /
[2019-07-17] MEDS: AMPICILLIN-SULBACTAM 3 GM in SODIUM CHLORIDE 0.9% 100 ML IVPB SCH ×5 (00:09→23:42)
[2019-07-17] MEDS: IPRATROPIUM-ALBUTEROL 3 ML NEB INHALATION SCH ×7 (00:34→23:47)
[2019-07-17 05:46] LABS: Glucose,Whole Blood 130 mg/dL (75-99)
[2019-07-17] MEDS: INSULIN ASPART (NovoLOG) 100 UNIT/ML VIAL SQ SCH ×4 (06:05→21:40)
[2019-07-17] MEDS: LEVOTHYROXINE 88 MCG TAB PO SCH (06:09)
[2019-07-17 06:47] LABS: INR 1.8 (<1.2); Prothrombin Time 17.2 sec (9.0-12.0)
[2019-07-17] MEDS: SPIRONOLACTONE 25 MG TAB PO SCH (08:01)
[2019-07-17] MEDS: METOPROLOL TARTRATE 50 MG TAB PO SCH ×2 (08:01→21:40)
[2019-07-17] MEDS: PANTOPRAZOLE 40 MG TABLET PO SCH (08:01)
[2019-07-17] MEDS: ALLOPURINOL 300 MG TAB PO SCH (08:02)
[2019-07-17] MEDS: POTASSIUM CHLORIDE ER 20 MEQ TAB.ER PO SCH (08:02)
[2019-07-17] MEDS: LIOTHYRONINE SODIUM 5 MCG TAB PO SCH (08:02)
[2019-07-17] MEDS: ISOSORBIDE MONONITRATE ER 30 MG TAB.ER.24H PO SCH (08:02)
[2019-07-17] MEDS: DOCUSATE 100 MG CAP PO SCH (08:02)
[2019-07-17] MEDS: MECLIZINE 12.5 MG TAB PO SCH ×3 (08:02→22:05)
[2019-07-17] MEDS: FUROSEMIDE 10 MG/ML 4 ML VIAL IV SCH ×2 (08:02→21:40)
[2019-07-17] MEDS: NYSTATIN 100,000 UNIT/ML SUSP 500,000 UNIT/5 ML CUP PO SCH ×4 (08:02→22:05)
[2019-07-17] MEDS: NON FORMULARY DRUG (Ubidecarenone [Co Q-10] 200 MG) PO SCH (08:03)
--- NOTE | 2019-07-17 11:02 | P.PN ---
Subjective 79 yo F with PMH of systolic CHF, persistent atrial fibrillation, COPD, T2DM, hx DVT, lymphedema, was recently admitted last week from the wound center due to worsening pressure ulcer in her heel. She was seen by ID and vascular surgery at that time, underwent bone scan which was negative for osteomyelitis, underwent bedside debridement and was discharged to [facility]. During her hospitalization she was continued on her home dose of oral lasix 40 mg bid and metalozone 5 mg weekly. She was also discharged on a prednisone taper and recommended to continue duonebs. She returned to the ED 24 hours after discharge with shortness of breath. She was found to be tachypneic, WBC 15k, BUN 69, Cr 1.2, she was in atrial fibrillation at ventricular rate of 130 bpm. Pt was placed on BiPAP and given a dose of IV lasix. 07/15/2019 diuresing well on Lasix IV push with 24-hour I&O reflecting a negative fluid balance. Creatinine 1.14. Bilateral lower extremity edema improving BiPAP at bedside, wore during the night.Maintained on IV antibiotics of Unasyn , nebulized bronchodilators, steroids. Breathing improved reports nonproductive cough. Maintaining O2 sats in the 90s on 4 L nasal cannula. Telemetry reporting atrial fibrillation with rate better controlled, ranging from 100s to 120s. Cardizem drip discontinued, beta darius increased. 07/16/2019 No overnight events patient wanted to go home but patient related to be discharged to subacute rehabilitation patient appears to have chronic bilateral pedal edema patient remains on IV Lasix. Patient is on Unasyn as well. 07/17/2019 Patient's preliminary much improved compared to yesterday will be continued on IV Lasix patient is bit tachycardic INR is 1.8 and Coumadin is being dosed by pharmacy Constitutional: Denied any fatigue denied any fever. Cardio vascular: denied any chest pain, palpitations Gastrointestinal denied any nausea vomiting Pulmonary: Denied any shortness of breath cough Neurologic denied any new focal deficits All inpatient medications were reviewed and appropriate changes in these medications as dictated in the interval history and assessment and plan.. Objective - Vital Signs Vital signs: Vital Signs Temp 97.5 F L 07/17/19 07:45 Pulse 104 H 07/17/19 07:45 Resp 16 07/17/19 07:45 BP 106/61 07/17/19 07:45 Pulse Ox 99 07/17/19 07:45 Intake & Output 07/16/19 07/17/19 07/17/19 18:59 06:59 18:59 Intake Total 220 1300 Output Total 1999 800 650 Balance -1780 500 -650 Intake: Intake, IV Titration 100 400 Amount Ampicillin-Sulbactam 3 gm 100 400 In Sodium Chloride 0.9% 100 ml @ 200 mls/hr IVPB Q6HR [facility] Rx#:[id number] Oral 120 900 Output: Urine 1999 800 650 Other: Voiding Method Indwelling Catheter Indwelling Catheter Indwelling Catheter # Bowel Movements 1 - Exam PHYSICAL EXAMINATION: GENERAL: The patient is alert and oriented x3, not in any acute distress. Well developed, well nourished. Obese HEENT: Pupils are round and equally reacting to light. EOMI. No scleral icterus. No conjunctival pallor. Normocephalic, atraumatic. No pharyngeal erythema. No thyromegaly. CARDIOVASCULAR: S1 and S2 present. No murmurs, rubs, or gallops. PULMONARY: Chest is clear to auscultation, no wheezing or crackles. ABDOMEN: Soft, nontender, nondistended, normoactive bowel sounds. No palpable organomegaly. MUSCULOSKELETAL: No joint swelling or deformity. EXTREMITIES: No cyanosis, clubbing, extensive bilateral pedal edema up is to be chronic mostly nonpitting there is areas of pitting pedal edema is chronic venous dermatosis. NEUROLOGICAL: Gross neurological examination did not reveal any focal deficits. SKIN: No rashes. - Labs CBC & Chem 7: 07/13/19 15:48 07/16/19 06:16 Labs: Abnormal Lab Results - Last 24 Hours (Table) 07/16/19 07/16/19 07/16/19 Range/Units 11:45 16:27 21:30 PT (9.0-12.0) sec INR (<1.2) POC Glucose (mg/dL) 239 H 169 H 223 H (75-99) mg/dL 07/17/19 07/17/19 Range/Units 05:44 06:19 PT 17.2 H (9.0-12.0) sec INR 1.8 H (<1.2) POC Glucose (mg/dL) 130 H (75-99) mg/dL Assessment and Plan Plan: --Acute hypoxic respiratory failure segment CHF exacerbation patient is on IV Lasix which will be continued patient appears to have diastolic dysfunction -Chronic obstructive pulmonary disease and chronic hypercapnic respiratory failure secondary to COPD does use oxygen at home -Atrial fibrillation presently rate controlled patient to Coumadin is subtherapeutic although pharmacy is doing that dosing -Type 2 diabetes mellitus next and-bilateral also is due to venous stasis -Bilateral lower limb chronic venous stasis dermatosis [place]-morbid obesity -Chronic kidney disease stage II -Obstructive sleep apnea noncompliant with CPAP -Altered mental status on admission metabolic and toxic -Hypertension next and-hyperlipidemia -Hypothyroidism
[2019-07-17 11:49] LABS: Glucose,Whole Blood 161 mg/dL (75-99)
[2019-07-17] MEDS: guaiFENesin-DM 100-10MG/5ML 10 ML CUP PO PRN ×2 (12:39→17:31)
--- NOTE | 2019-07-17 12:54 | P.PN ---
Subjective Progress Note Date: 07/17/19 The patient is seen today 07/16/2019 in follow-up on the selective care unit. She is currently sitting up in a chair at the bedside. Awake and alert in no acute distress. Breathing a bit easier today compared to yesterday. Maintaining O2 saturations in the 90s on 3 L/m per nasal cannula. Lower extrem ity edema continues. Dressings in place around the ankles. She remains in a negative balance. Currently 2.4 L negative. Continue on Lasix 40 mg IV every 12 hours. Creatinine 1.09. INR 1.7. Continued on Unasyn. The patient is seen today 07/17/2019 in follow-up on the selective care unit. She is awake and alert in no acute distress. Currently sitting up in the chair at the bedside having lunch. Denies any worsening shortness of breath, cough or congestion. Continues to maintain good O2 saturation in the 90s on 3 L/m pernasal cannula. She remains on diuretics. Currently in a negative balance. Continued with lower extremity edema. Remains on Unasyn. INR 1.8. Objective - Vital Signs Vital signs: Vital Signs Temp 97.5 F L 07/17/19 07:45 Pulse 94 07/17/19 12:05 Resp 18 07/17/19 12:05 BP 105/64 07/17/19 12:05 Pulse Ox 90 L 07/17/19 12:05 Intake & Output 07/16/19 07/17/19 07/17/19 18:59 06:59 18:59 Intake Total 220 1300 Output Total 2000 800 1050 Balance -1780 500 -1050 Intake: Intake, IV Titration 100 400 Amount Ampicillin-Sulbactam 3 gm 100 400 In Sodium Chloride 0.9% 100 ml @ 200 mls/hr IVPB Q6HR [facility] Rx#:[id number] Oral 120 900 Output: Urine 1999 800 1050 Other: Voiding Method Indwelling Catheter Indwelling Catheter Indwelling Catheter # Bowel Movements 1 - Exam Gen. appearance is an 79-year-old female patient, obese, comfortable no acute distress. She is off the BiPAP for now on 3 L of oxygen by nasal cannula. She was using BiPAP overnight at a pressure of 12/6 with an FiO2 of 60%. Head exam was generally normal. There was no scleral icterus or corneal arcus. Mucous membranes were moist. Neck was supple and without jugular venous distension, thyromegaly, or carotid bruits. Carotids were easily palpable bilaterally. There was no adenopathy. Lungs sounds are diminished in the lower lung whitt bilaterally along with some dullness to percussion. No wheezes or rhonchi. The breath sounds are more diminished on the right compared to the left. Cardiac exam revealed the PMI to be normally situated and sized. The rhythm was irregular secondary to atrial fibrillation and and no extrasystoles were noted during several minutes of auscultation. The first and second heart sounds were normal and physiologic splitting of the second heart sound was noted. There were no murmurs, rubs, clicks, or gallops. Abdominal exam revealed normal bowel sounds. The abdomen was soft, non-tender, and without masses, organomegaly, or appreciable enlargement of the abdominal aorta. Organs cannot be accurately palpated as patient is obese extremities revealed +1-2 pitting edema addition to diminished pulses in lower extremities bilaterally and the patient has a 4 x 4 centimeter left heel ulcer that was debrided today and another 1 cm ulcer with central dilation tissue on the right Neurologically awake and alert and there is no focal neurological deficit there is motor weakness lower extremities bilaterally. - Labs CBC & Chem 7: 07/13/19 15:48 07/16/19 06:16 Labs: Abnormal Lab Results - Last 24 Hours (Table) 07/16/19 07/16/19 07/17/19 Range/Units 16:27 21:30 05:44 PT (9.0-12.0) sec INR (<1.2) POC Glucose (mg/dL) 169 H 223 H 130 H (75-99) mg/dL 07/17/19 07/17/19 Range/Units 06:19 11:37 PT 17.2 H (9.0-12.0) sec INR 1.8 H (<1.2) POC Glucose (mg/dL) 161 H (75-99) mg/dL Assessment and Plan Assessment: Assessment: 1 CHF with diastolic heart failure, and the patient has small bilateral pleural effusions. She does have small lung volumes and some limited atelectatic changes in lung bases. 2 bilateral pleural effusion secondary to above 3 chronic hypoxic respiratory failure with possibly component of chronic hypercapnic respiratory failure.. The patient's has more than 40 pack year smoking history and she has a component of COPD along with a component of obesity hypoventilation syndrome/obstructive sleep apnea. This has been officially confirmed and the patient has not been able to tolerate CPAP. I think this is something to consider that again in the future 4 altered mental status and possibly due to a combination of COPD exacerbation and CHF exacerbation with CO2 narcosis, insulin-dependent therapy and diuresis 5 COPD with chronic hypercapnic and hypoxic history failure 6 previous history of DVT of lower extremity currently on anticoagulation with a therapeutic PT/INR 7 morbid obesity with a BMI of 44 8 bilateral heel ulcers post-debridement of the left heel ulcer measuring 4x4 cm cultures of been sent and the patient is currently covered with antibiotics 9 history of atrial fibrillation, the PT/INR is subtherapeutic for now with an INR of 1.7 10 hypertension 11 hyperlipidemia 12 osteoarthritis 13 stage II kidney disease, chronic 14 obstructive sleep apnea noncompliant to CPAP therapy unable to use 15 decubitus ulceration involving the coccyx 16 previous history of UTI with sepsis and the patient suffers from incontinence of the urine 17 gout 18 hypothyroidism 19 history of vertigo 20 rheumatoid arthritis 21 gout 22 mild leukocytosis 23 chronic metabolic alkalosis probably related to chronic hypercapnic respiratory failure Plan: The patient was seen and evaluated by Dr. Patrick. Continue the current treatment plan. She remains on IV diuretics, Unasyn, bronchodilators. Anticoagulated with warfarin. We'll continue to follow. I, the cosigning physician, performed a history & physical examination of the patient. Lungs sounds diminished in the bilateral posterior bases. Maintaining good O2 saturations in the 90s on 3 L/m per nasal cannula. I discussed the assessment and plan of care with my nurse practitioner, Berkley Yost. I attest to the above note as dictated by her.
[2019-07-17 16:44] LABS: Glucose,Whole Blood 170 mg/dL (75-99)
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
[2019-07-17] MEDS: traMADol 50 MG TAB PO PRN (17:37)
[2019-07-17] MEDS ORDERED: WARFARIN 5 MG TAB PO ONE (18:00)
[2019-07-17 20:59] LABS: Glucose,Whole Blood 231 mg/dL (75-99)
[2019-07-17] MEDS: ATORVASTATIN 40 MG TAB PO SCH (21:40)
[2019-07-17] MEDS: INSULIN DETEMIR (LEVEMIR) 100 UNIT/ML SYR SQ SCH (21:40)
[2019-07-18] MEDS: IPRATROPIUM-ALBUTEROL 3 ML NEB INHALATION SCH ×5 (03:44→20:21)
[2019-07-18 06:12] LABS: Glucose,Whole Blood 115 mg/dL (75-99)
[2019-07-18] MEDS: INSULIN ASPART (NovoLOG) 100 UNIT/ML VIAL SQ SCH ×4 (06:26→21:14)
[2019-07-18] MEDS: LEVOTHYROXINE 88 MCG TAB PO SCH (06:30)
[2019-07-18 06:46] LABS: INR 1.6 (<1.2); Prothrombin Time 15.3 sec (9.0-12.0)
[2019-07-18 06:55] LABS: Calcium 8.6 mg/dL (8.4-10.2)
[2019-07-18] MEDS: AMPICILLIN-SULBACTAM 3 GM in SODIUM CHLORIDE 0.9% 100 ML IVPB SCH ×4 (07:05→23:46)
[2019-07-18 07:06] LABS: Potassium 4.3 mmol/L (3.5-5.1)
[2019-07-18] MEDS: ISOSORBIDE MONONITRATE ER 30 MG TAB.ER.24H PO SCH (08:34)
[2019-07-18] MEDS: METOPROLOL TARTRATE 50 MG TAB PO SCH ×2 (08:34→21:04)
[2019-07-18] MEDS: POTASSIUM CHLORIDE ER 20 MEQ TAB.ER PO SCH (08:34)
[2019-07-18] MEDS: SPIRONOLACTONE 25 MG TAB PO SCH (08:34)
[2019-07-18] MEDS: FUROSEMIDE 10 MG/ML 4 ML VIAL IV SCH ×2 (08:34→21:04)
[2019-07-18] MEDS: PANTOPRAZOLE 40 MG TABLET PO SCH (08:34)
[2019-07-18] MEDS: ALLOPURINOL 300 MG TAB PO SCH (08:34)
[2019-07-18] MEDS: DOCUSATE 100 MG CAP PO SCH (08:34)
[2019-07-18] MEDS: LIOTHYRONINE SODIUM 5 MCG TAB PO SCH (08:35)
[2019-07-18] MEDS: MECLIZINE 12.5 MG TAB PO SCH ×3 (08:35→21:04)
[2019-07-18] MEDS: NYSTATIN 100,000 UNIT/ML SUSP 500,000 UNIT/5 ML CUP PO SCH ×4 (08:35→21:04)
--- NOTE | 2019-07-18 10:18 | PN ---
PROGRESS NOTE DATE OF SERVICE: 07/17/2019 REASON FOR FOLLOWUP: Left heel infected pressure ulcer. INTERVAL HISTORY: The patient is currently afebrile. Patient is breathing comfortably. The patient denies having any shortness of breath. No nausea, no vomiting. No abdominal pain and no diarrhea. PHYSICAL EXAMINATION: Blood pressure is 105/69 with a pulse of 103 temperature 97.6 he is 93% on 2 L nasal cannula. General description is: Elderly female up in a chair in no distress. RESPIRATORY SYSTEM: Unlabored breathing, decreased breath sounds in the base, no wheeze. HEART: S1, S2. Regular rate and rhythm.. ABDOMEN: Soft, no tenderness. LAB: INR is 1.8. DIAGNOSTIC IMPRESSION AND PLAN: Patient with left heel, stage III, infected pressure ulcer, culture has been multiple pathogen. Patient is currently covered with Unasyn 3 g every 6 hours to continue for another 2 weeks. Local wound care to continue with [facility] and keep the area off the pressure. Continue supportive care. MMODL / IJN: [id number] /
--- NOTE | 2019-07-18 11:33 | XR ---
EXAMINATION TYPE: XR chest 1V portable DATE OF EXAM: 07/18/2019 HISTORY: Shortness of breath. COMPARISON: 07/13/2019 TECHNIQUE: Single view of the chest is submitted. FINDINGS: Demonstrated are scattered senescent parenchymal change. Persistent cardiomegaly with pulmonary venous congestion and small effusions and/or atelectasis. Over all stable examination. Hilar and mediastinal structures are within normal limits. Degenerative changes are seen of the dorsal spine. IMPRESSION: 1. Persistent cardiomegaly with pulmonary venous congestion and small effusions and/or atelectasis. Overall stable examination.
--- NOTE | 2019-07-18 11:55 | P.PN ---
Subjective Progress Note Date: 07/18/19 This is a pleasant 79-year-old female with documented history of hypertension, diabetes, hyperlipidemia, paroxysmal atrial fibrillation, chronic diastolic congestive heart failure, COPD, history of DVT, chronic pressure ulcers to her bilateral heels, she has a BMI of 44. Patient has been on recent vancomycin, because her wound culture was positive for anaerobic gram-negative bacteria and gram-positive cocci. Her bone scan was negative for osteomyelitis recently. On her recent hospitalization, patient was treated with some IV Lasix as well as Zaroxolyn, and receiving IV antibiotics at the alf. She presented to the hospital yesterday with symptoms of lethargy, and shortness of breath. She had some mild mental status changes. Her chest x-ray on presentation here showed cardiomegaly with bibasilar effusions. EKG showed atrial fibrillation with a rapid ventricular response. Blood pressure 125/70 with a heart rate of 1:30 to 140, 92% on BiPAP. White blood cell count 15.0, hemoglobin 10.8, platelet count 246. INR is 2.4. Sodium 146, potassium 3.9, BUN 73 and creatinine 1.0 this morning, on admission the creatinine was 1.2. BNP level 7580, troponins 0.021, 0.018, 0.015. At the time of my examination, the patient is alert and oriented, still in the emergency room. Awaiting a bed on the telemetry unit. She is currently on a Cardizem drip at 5 mg per hour, on IV antibiotics, and on IV Lasix. 07/18/2019 Patient was seen and examined this morning on the cardiac unit, sitting up in the chair without any problems. Denies any worsening shortness of breath. B lood pressure 104/60 with a heart rate in the 80s, 96% on room air. INR today is 1.6, sodium 140, potassium 4.3, BUN 21, creatinine 1.0. She continues to diurese well on IV Lasix. Chest x-ray continues to show pulmonary venous congestion and small effusions. Objective - Vital Signs Vital signs: Vital Signs Temp 98.2 F 07/18/19 08:39 Pulse 82 07/18/19 08:43 Resp 20 07/18/19 08:39 BP 104/69 07/18/19 08:39 Pulse Ox 96 07/18/19 08:39 Intake & Output 07/17/19 07/18/19 07/18/19 18:59 06:59 18:59 Intake Total 240 720 Output Total 1350 850 Balance -1110 -850 720 Intake: Oral 240 720 Output: Urine 1350 850 Other: Voiding Method Indwelling Catheter Indwelling Catheter Indwelling Catheter # Bowel Movements 2 1 - Exam Head exam was generally normal. There was no scleral icterus or corneal arcus. Mucous membranes were moist. Neck was supple and without jugular venous distension, thyromegaly, or carotid bruits. Carotids were easily palpable bilaterally. There was no adenopathy. Lungs sounds are diminished in the lower lung whitt bilaterally along with some dullness to percussion. No wheezes or rhonchi. The breath sounds are more diminished on the right compared to the left. Cardiac exam revealed the PMI to be normally situated and sized. The rhythm was irregular secondary to atrial fibrillation and and no extrasystoles were noted during several minutes of auscultation. The first and second heart sounds were normal and physiologic splitting of the second heart sound was noted. There were no murmurs, rubs, clicks, or gallops. Abdominal exam revealed normal bowel sounds. The abdomen was soft, non-tender, and without masses, organomegaly, or appreciable enlargement of the abdominal aorta. Organs cannot be accurately palpated as patient is obese extremities revealed +1-2 pitting edema addition to diminished pulses in lower extremities bilaterally and the patient has a 4 x 4 centimeter left heel ulcer that was debrided today and another 1 cm ulcer with central dilation tissue on the right Neurologically awake and alert and there is no focal neurological deficit there is motor weakness lower extremities bilaterally. - Labs CBC & Chem 7: 07/13/19 15:48 07/18/19 05:49 Labs: Abnormal Lab Results - Last 24 Hours (Table) 07/17/19 07/17/19 07/17/19 Range/Units 11:37 16:41 20:57 PT (9.0-12.0) sec INR (<1.2) Chloride (98-107) mmol/L Carbon Dioxide (22-30) mmol/L BUN (7-17) mg/dL Glucose (74-99) mg/dL POC Glucose (mg/dL) 161 H 170 H 231 H (75-99) mg/dL 07/18/19 07/18/19 07/18/19 Range/Units 05:49 05:49 06:11 PT 15.3 H (9.0-12.0) sec INR 1.6 H (<1.2) Chloride 96 L (98-107) mmol/L Carbon Dioxide 38 H (22-30) mmol/L BUN 51 H (7-17) mg/dL Glucose 106 H (74-99) mg/dL POC Glucose (mg/dL) 115 H (75-99) mg/dL Assessment and Plan Plan: Assessment and plan #1 systolic CHF acute on chronic , and the patient has small bilateral pleural effusions. #2 bilateral pleural effusion secondary to above #3 chronic hypoxic respiratory failure with possibly component of chronic hypercapnic respiratory failure.. #4 altered mental status and possibly due to a combination of COPD exacerbation and CHF exacerbation with CO2 narcosis #5 COPD with chronic hypercapnic and hypoxic history failure #6 previous history of DVT of lower extremity currently on anticoagulation with a therapeutic PT/INR #7 morbid obesity with a BMI of 44 #8 bilateral heel ulcers post-debridement of the left heel ulcer measuring 4x4 cm cultures of been sent and the patient is currently covered with antibiotics #9 history of paroxysmal atrial fibrillation, the PT/INR is therapeutic for now with an INR of 2.4 #10 hypertension #11 hyperlipidemia #12 osteoarthritis #13 stage II kidney disease, chronic #14 obstructive sleep apnea noncompliant to CPAP therapy unable to use #15 decubitus ulceration involving the coccyx #16 previous history of UTI with sepsis and the patient suffers from incontin ence of the urine #17 gout #18 hypothyroidism #19 history of vertigo #20 rheumatoid arthritis Plan Repeat chest x-ray persisted show congestion, we will continue with current dose of IV Lasix, continue to monitor the intake and output along with daily weights and daily lytes BUN and creatinine. DNP note has been reviewed, I agree with a documented findings and plan of care. Patient was seen and examined.
[2019-07-18 12:04] LABS: Glucose,Whole Blood 125 mg/dL (75-99)
--- NOTE | 2019-07-18 12:14 | P.PN ---
Subjective Progress Note Date: 07/18/19 Principal diagnosis: Exacerbation of diastolic congestive heart failure 79-year-old morbidly obese female patient with a BMI of 44 known history of COPD and previous history of DVT, diastolic heart failure, diabetes mellitus and pressure ulcer of the heels, came into the hospital last week because of wounds in her lower extremities which have been painful and she has also noted drainage to the bilateral heels worse on the left. X-ray of the foot showed demineralization with diffuse subcutaneous emphysema. The patient was started on vancomycin and ID consultation was requested. Bone scan came back negative for osteomyelitis. Wound culture was positive for anaerobic gram-negative bacteria and gram-positive cocci. I was consulted on the case because the patient was having some shortness of breath. The CAT scan of the chest was done and the patient was found to have bilateral pleural effusion and atelectatic changes in lung bases bilaterally. No suspicious mediastinal mass. 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 No mediastinal lymphadenopathy. No pericardial effusion. There is some elevation of the right hemidiaphragm. There are 3 cm low-density left adrenal lesion was also seen. The patient also underwent debridement of the wound to the left. There was measuring 4 x 4 CM. All of the necrotic tissue and the devitalized tissue was removed. The wound was irrigated with saline and medical management was applied. A pressure dressing was also applied. During the course of her hospitalization, the patient was placed on diuretics ultimately she was discharged to [facility]bul[facility] around the clock on oral Lasix 40 mg twice a day and Zaroxolyn 5 mg once a week in addition to that the patient was also given a prednisone burst taper, discharge. She was also utilizing albuterol/Atrovent nebulized treatment [id number]. She was receiving IV cefepime at the residential.. The wound cultures were obtained on 07/11/2019 showed Acinetobacter pneumoniae in addition to anaerobic gram-negative bacillus and gram-positive copious. The patient came in to the emergency department yesterday because of being lethargic and drowsy. She bounced back within 24 hours of being discharged home. She was complaining of shortness of breath and she has also altered mentation. The patient was found to be quite short of breath and tachypneic. Her white cell count was at 15.0. Hemoglobin was at 10.0. The patient a BUN of 69 with a creatinine of 1.2. Serum sodium level was 146 with a serum bicarb of 38. Her blood sugar was around 236 at time of admission and her BNP level was 7508 with a total protein of 6.0 and an albumin of 3.4. Cardiac enzymes/troponin's were negative. Echocardiogram Echo showed concentric LVH with an EF around 55%. The patient also has mild aortic sclerosis, moderate calcification of the mitral valve and the PA pressure 45 consistent with moderate to severe pulmonary hypertension. I saw this patient again in the emergency department. She was already receiving a pressure of 12/6 cm of water overnight with an FiO2 of 60%. Her chest x-ray shows Solu-Medrol small lateral pleural effusions. She has a elevated today hemidiaphragm. She is in atrial fibrillation. Mental status is improved for no w. She looks to be alert and awake. On 07/15/2019 she seen in follow-up on selective care unit, she remains on IV Lasix, she is in -460 mL fluid balance, she has been wearing BiPAP intermittently, with pressures of 12/6, and FiO2 of 60%, has quite significant lower extremity edema, but she states she is feeling better, and breathing easier, she is currently sitting up in the chair, on 4 L of oxygen and her pulse ox is 94%, today's labs have been reviewed, showing sodium of 146, potassium 3.8, chloride is 101, CO2 is 40, B1 is 67 creatinine is 1.14. Her Lasix dose is 40 mg every 12 hours in addition to weekly dose of Zaroxolyn. She is in atrial fibrillation, slightly tachycardic, with a rate of 102-129 BPM. She is on IV antibiotics for Acinetobacter pneumonia in her lower extremity wounds On 07/18/2019 patient seen in follow-up on selective care unit, currently resting in bed, the nursing staff patient has been refusing BiPAP support at night, according to the patient the BiPAP has not been applied at nighttime. Remains on diuretics, she is in negative fluid balance, - 850. Still has significant lower extremity edema, some dizziness chronic, remains on Unasyn for Acinetobacter pneumonia in her lower extremity wounds. No fever or chills, 2 L of oxygen during the day, with a pulse ox of 96%, denies any acute distress, pacing chest pain, breathing seems to be stable. Objective - Vital Signs Vital signs: Vital Signs Temp 98.2 F 07/18/19 08:39 Pulse 82 07/18/19 08:43 Resp 20 07/18/19 08:39 BP 104/69 07/18/19 08:39 Pulse Ox 96 07/18/19 08:39 Intake & Output 07/17/19 07/18/19 07/18/19 18:59 06:59 18:59 Intake Total 240 720 Output Total 1350 850 Balance -1110 -850 720 Intake: Oral 240 720 Output: Urine 1350 850 Other: Voiding Method Indwelling Catheter Indwelling Catheter Indwelling Catheter # Bowel Movements 2 1 - Exam Gen. appearance obese, comfortable in the 1-year-old white female, currently on 2 L of oxygen any significant respiratory distress. She is off the BiPAP for now on 2 L of oxygen by nasal cannula. She was using BiPAP overnight at a pressure of 12/6 with an FiO2 of 40%. Head exam was generally normal. There was no scleral icterus or corneal arcus. Mucous membranes were moist. Neck was supple and without jugular venous distension, thyromegaly, or carotid bruits. Carotids were easily palpable bilaterally. There was no adenopathy. Lungs sounds are diminished in the lower lung whitt bilaterally along with some dullness to percussion. No wheezes or rhonchi. The breath sounds are more diminished on the right compared to the left. Cardiac exam revealed the PMI to be normally situated and sized. The rhythm was irregular secondary to atrial fibrillation and and no extrasystoles were noted during several minutes of auscultation. The first and second heart sounds were normal and physiologic splitting of the second heart sound was noted. There were no murmurs, rubs, clicks, or gallops. Abdominal exam revealed normal bowel sounds. The abdomen was soft, non-tender, and without masses, organomegaly, or appreciable enlargement of the abdominal aorta. Organs cannot be accurately palpated as patient is obese extremities revealed +1-2 pitting edema addition to diminished pulses in lower extremities bilaterally and the patient has a 4 x 4 centimeter left heel ulcer that was debrided today and another 1 cm ulcer with central dilation tissue on the right Neurologically awake and alert and there is no focal neurological deficit there is motor weakness lower extremities bilaterally. - Labs CBC & Chem 7: 07/13/19 15:48 07/18/19 05:49 Labs: Abnormal Lab Results - Last 24 Hours (Table) 07/17/19 07/17/19 07/18/19 Range/Units 16:41 20:57 05:49 PT 15.3 H (9.0-12.0) sec INR 1.6 H (<1.2) Chloride (98-107) mmol/L Carbon Dioxide (22-30) mmol/L BUN (7-17) mg/dL Glucose (74-99) mg/dL POC Glucose (mg/dL) 170 H 231 H (75-99) mg/dL 07/18/19 07/18/19 07/18/19 Range/Units 05:49 06:11 12:03 PT (9.0-12.0) sec INR (<1.2) Chloride 96 L (98-107) mmol/L Carbon Dioxide 38 H (22-30) mmol/L BUN 51 H (7-17) mg/dL Glucose 106 H (74-99) mg/dL POC Glucose (mg/dL) 115 H 125 H (75-99) mg/dL Assessment and Plan Plan: Assessment: 1 CHF with diastolic heart failure, and the patient has small bilateral pleural effusions. She does have small lung volumes and some limited atelectatic changes in lung bases. 2 bilateral pleural effusion secondary to above 3 chronic hypoxic respiratory failure with possibly component of chronic hypercapnic respiratory failure.. The patient's has more than 40 tachycardia smoking history and I'm sure she has a component of COPD along with a component of obesity hypoventilation syndrome/obstructive sleep apnea. This has been officially confirmed and the patient has not been able to tolerate CPAP. I th ink this is something to consider that again in the future 4 altered mental status and possibly due to a combination of COPD exacerbation and CHF exacerbation with CO2 narcosis, insulin-dependent therapy and diuresis 5 COPD with chronic hypercapnic and hypoxic history failure 6 previous history of DVT of lower extremity currently on anticoagulation with a therapeutic PT/INR 7 morbid obesity with a BMI of 44 8 bilateral heel ulcers post-debridement of the left heel ulcer measuring 4x4 cm cultures of been sent and the patient is currently covered with antibiotics 9 history of atrial fibrillation, the PT/INR is therapeutic for now with an INR of 2.4 10 hypertension 11 hyperlipidemia 12 osteoarthritis 13 stage II kidney disease, chronic 14 obstructive sleep apnea noncompliant to CPAP therapy unable to use 15 decubitus ulceration involving the coccyx 16 previous history of UTI with sepsis and the patient suffers from incontinence of the urine 17 gout 18 hypothyroidism 19 history of vertigo 20 rheumatoid arthritis 21 gout 22 mild leukocytosis 23 chronic metabolic alkalosis probably related to chronic hypercapnic respiratory failure Plan: Continue with IV Lasix, Zaroxolyn, patient is in negative fluid balance. Unasyn, breathing treatments, BiPAP support at bedtime and as needed during the day. Today's chest x-ray has been reviewed showing pulmonary venous congestion and small bilateral pleural effusions and atelectasis overall stable exam. I performed a history & physical examination of the patient and discussed their management with my nurse practitioner, Sana Villalta. I reviewed the nurse practitioner's note and agree with the documented findings and plan of care. Lung sounds are positive for diminished breath sounds. The findings and the impression was discussed with the patient. I attest to the documentation by the nurse practitioner. Time with Patient: Less than 30
[2019-07-18] MEDS: NON FORMULARY DRUG (Ubidecarenone [Co Q-10] 200 MG) PO SCH (12:40)
--- NOTE | 2019-07-18 15:21 | P.PN ---
Subjective Progress Note Date: 07/18/19 Tamar Dominguez is an 79 yo F with PMH of systolic CHF, persistent atrial fibrillation, COPD, T2DM, hx DVT, lymphedema, was recently admitted last week from the wound center due to worsening pressure ulcer in her heel. She was seen by ID and vascular surgery at that time, underwent bone scan which was negative for osteomyelitis, underwent bedside debridement and was discharged to [facility]. During her hospitalization she was continued on her home dose of oral lasix 40 mg bid and metalozone 5 mg weekly. She was also discharged on a prednisone taper and recommended to continue duonebs. She returned to the ED 24 hours after discharge with shortness of breath. She was found to be tachypneic, WBC 15k, BUN 69, Cr 1.2, she was in atrial fibrillation at ventricular rate of 130 bpm. Pt was placed on BiPAP and given a dose of IV lasix. 07/15/2019 diuresing well on Lasix IV push with 24-hour I&O reflecting a negative fluid balance. Creatinine 1.14. Bilateral lower extremity edema improving BiPAP at bedside, wore during the night.Maintained on IV antibiotics of Unasyn , nebulized bronchodilators, steroids. Breathing improved reports nonproductive cough. Maintaining O2 sats in the 90s on 4 L nasal cannula. Telemetry reporting atrial fibrillation with rate better controlled, ranging from 100s to 120s. Cardizem drip discontinued, beta darius increased. 07/18/2019 continues to decline BiPAP at night, states unable to tolerate mask. Diuresing on Lasix IV push with 24-hour I&O reflecting a negative fluid balance. Maintaining O2 sats in the 90s on 2 L nasal cannula. Productive cough with guzman sputum reported, breathing improving. Chest x-ray stable reporting persistent cardiomegaly with pulmonary venous congestion, small effusions/atelectasis. Objective - Vital Signs Vital signs: Vital Signs Temp 98.3 F 07/18/19 12:18 Pulse 84 07/18/19 12:29 Resp 20 07/18/19 12:18 BP 123/67 07/18/19 12:18 Pulse Ox 100 07/18/19 12:18 Intake & Output 07/17/19 07/18/19 07/18/19 18:59 06:59 18:59 Intake Total 240 960 Output Total 1350 850 550 Balance -1110 -850 410 Intake: Oral 240 960 Output: Urine 1350 850 550 Other: Voiding Method Indwelling Catheter Indwelling Catheter Indwelling Catheter # Bowel Movements 2 1 - Exam General: obese female in NAD. Vitals reviewed, sitting up in bed Eyes: PERRL, EOMI, conjunctiva normal HENT: normocephalic, mucus membranes moist Neck: supple, no JVD Lungs: diminished air entry, bibasilar rales, no rhonchi, no wheezing CV: Irregularly irregular, systolic murmur. Peripheral pulses 1+ Abdomen: soft, nondistended, no organomegaly Ext: bilateral LE chronic venous stasis with decreasing edema, tender. Bilateral lower extremity dressings clean dry and intact Skin: warm and dry. Neuro: A&Ox3, normal mood and affect - Labs CBC & Chem 7: 07/13/19 15:48 07/18/19 05:49 Labs: Abnormal Lab Results - Last 24 Hours (Table) 07/17/19 07/17/19 07/18/19 Range/Units 16:41 20:57 05:49 PT 15.3 H (9.0-12.0) sec INR 1.6 H (<1.2) Chloride (98-107) mmol/L Carbon Dioxide (22-30) mmol/L BUN (7-17) mg/dL Glucose (74-99) mg/dL POC Glucose (mg/dL) 170 H 231 H (75-99) mg/dL 07/18/19 07/18/19 07/18/19 Range/Units 05:49 06:11 12:03 PT (9.0-12.0) sec INR (<1.2) Chloride 96 L (98-107) mmol/L Carbon Dioxide 38 H (22-30) mmol/L BUN 51 H (7-17) mg/dL Glucose 106 H (74-99) mg/dL POC Glucose (mg/dL) 115 H 125 H (75-99) mg/dL Assessment and Plan Assessment: (1) Acute exacerbation of chronic obstructive pulmonary disease Current Visit: Yes Status: Acute Code(s): J44.1 - CHRONIC OBSTRUCTIVE PULMONARY DISEASE W (ACUTE) EXACERBATION SNOMED Code(s): 818080064 (2) Acute pulmonary edema Current Visit: Yes Status: Acute Code(s): J81.0 - ACUTE PULMONARY EDEMA SNOMED Code(s): 59026435 (3) Acute on chronic diastolic (congestive) heart failure Current Visit: No Status: Acute Code(s): I50.33 - ACUTE ON CHRONIC DIASTOLIC (CONGESTIVE) HEART FAILURE SNOMED Code(s): 768962675 (4) Atrial fibrillation with rapid ventricular response Current Visit: No Status: Acute Code(s): I48.91 - UNSPECIFIED ATRIAL FIBRILLATION SNOMED Code(s): 469576867037183 (5) Type 2 diabetes mellitus Current Visit: No Status: Acute Code(s): E11.9 - TYPE 2 DIABETES MELLITUS WITHOUT COMPLICATIONS SNOMED Code(s): 24695979 (6) acute on chronic hypercapnic, hypoxic respiratory failure (7) bilateral heel ulcers status post debridement of left heel ulcer, cultures pending (8) bilateral pleural effusions secondary to CHF (9) morbid obesity, BMI 45.5 (10) chronic kidney disease, stage II (11) obstructive sleep apnea, noncompliant with CPAP Plan: Continue on current medication regime ,monitoring and to inspect treatment. Maintain diuresing with IV Lasix.aggressive pulmonary toileting .PT/OT. Antibiotics/Wound Care as per infectious disease. INR 1.6, Coumadin as per pharmacy dosing. The impression and plan of care has been dictated as directed. : I performed a history and examination of this patient, discussed the same with the dictator. I agree with the dictator's note ,documented as a scribe. Any additional findings or plans will be noted.
[2019-07-18 17:09] LABS: Glucose,Whole Blood 187 mg/dL (75-99)
[2019-07-18] MEDS ORDERED: WARFARIN 7.5 MG TAB PO ONE (18:00)
--- NOTE | 2019-07-18 20:54 | PN ---
PROGRESS NOTE DATE OF SERVICE: 07/18/2019. REASON FOR FOLLOWUP: Left heel infected pressure ulcer. INTERVAL HISTORY: The patient is currently afebrile, has been breathing a little bit comfortably. Denies having any chest pain. Occasional cough. No abdominal pain and no worsening pain to the left heel area. PHYSICAL EXAMINATION: Blood pressure 93/53 with a pulse of 76, temperature 98.3. He is 96% on BiPAP. General description is an elderly female up in the bed in no distress. RESPIRATORY SYSTEM: Unlabored breathing with decreased intensity of breath sounds. No wheeze. HEART: S1, S2. Regular rate and rhythm. ABDOMEN: Soft. No tenderness. Left heel is currently dressed up. No obvious drainage on the dressing. LABS: BUN of 51, creatinine 1.01. DIAGNOSTIC IMPRESSION AND PLAN: Patient with left heel infected pressure ulcer. Wound culture with Acinetobacter and anaerobic Gram-negative. Patient is covered with Unasyn 3 grams q.6. Local wound care to continue with Medihoney. Keep the area off pressure. Continue with supportive care. MMODL / IJN: [id number] /
[2019-07-18 20:57] LABS: Glucose,Whole Blood 234 mg/dL (75-99)
[2019-07-18] MEDS: ATORVASTATIN 40 MG TAB PO SCH (21:04)
[2019-07-18] MEDS: INSULIN DETEMIR (LEVEMIR) 100 UNIT/ML SYR SQ SCH (21:14)
[2019-07-19] MEDS: IPRATROPIUM-ALBUTEROL 3 ML NEB INHALATION SCH ×5 (00:36→16:34)
[2019-07-19 06:56] LABS: Glucose,Whole Blood 154 mg/dL (75-99)
[2019-07-19 07:25] LABS: INR 1.7 (<1.2); Prothrombin Time 17.1 sec (9.0-12.0)
[2019-07-19] MEDS: LEVOTHYROXINE 88 MCG TAB PO SCH (08:00)
[2019-07-19] MEDS: ALLOPURINOL 300 MG TAB PO SCH (08:00)
[2019-07-19] MEDS: FUROSEMIDE 10 MG/ML 4 ML VIAL IV SCH (08:01)
[2019-07-19] MEDS: DOCUSATE 100 MG CAP PO SCH (08:01)
[2019-07-19] MEDS: LIOTHYRONINE SODIUM 5 MCG TAB PO SCH (08:01)
[2019-07-19] MEDS: ISOSORBIDE MONONITRATE ER 30 MG TAB.ER.24H PO SCH (08:01)
[2019-07-19] MEDS: MECLIZINE 12.5 MG TAB PO SCH ×2 (08:02→15:22)
[2019-07-19] MEDS: METOPROLOL TARTRATE 50 MG TAB PO SCH (08:02)
[2019-07-19 08:03] VITALS: BP 112/72; TEMP 98.2
[2019-07-19] MEDS: PANTOPRAZOLE 40 MG TABLET PO SCH (08:04)
[2019-07-19] MEDS: SPIRONOLACTONE 25 MG TAB PO SCH (08:04)
[2019-07-19] MEDS: NYSTATIN 100,000 UNIT/ML SUSP 500,000 UNIT/5 ML CUP PO SCH ×2 (08:04→12:02)
[2019-07-19] MEDS: INSULIN ASPART (NovoLOG) 100 UNIT/ML VIAL SQ SCH ×2 (08:05→11:59)
[2019-07-19] MEDS: NON FORMULARY DRUG (Ubidecarenone [Co Q-10] 200 MG) PO SCH (08:05)
[2019-07-19] MEDS: POTASSIUM CHLORIDE ER 20 MEQ TAB.ER PO SCH (08:19)
[2019-07-19 08:51] LABS: Calcium 8.8 mg/dL (8.4-10.2); Potassium 4.2 mmol/L (3.5-5.1)
--- NOTE | 2019-07-19 08:59 | P.PN ---
Subjective Progress Note Date: 07/19/19 Principal diagnosis: Exacerbation of diastolic congestive heart failure 79-year-old morbidly obese female patient with a BMI of 44 known history of COPD and previous history of DVT, diastolic heart failure, diabetes mellitus and pressure ulcer of the heels, came into the hospital last week because of wounds in her lower extremities which have been painful and she has also noted drainage to the bilateral heels worse on the left. X-ray of the foot showed demineralization with diffuse subcutaneous emphysema. The patient was started on vancomycin and ID consultation was requested. Bone scan came back negative for osteomyelitis. Wound culture was positive for anaerobic gram-negative bacteria and gram-positive cocci. I was consulted on the case because the patient was having some shortness of breath. The CAT scan of the chest was done and the patient was found to have bilateral pleural effusion and atelectatic changes in lung bases bilaterally. No suspicious mediastinal mass. 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 No mediastinal lymphadenopathy. No pericardial effusion. There is some elevation of the right hemidiaphragm. There are 3 cm low-density left adrenal lesion was also seen. The patient also underwent debridement of the wound to the left. There was measuring 4 x 4 CM. All of the necrotic tissue and the devitalized tissue was removed. The wound was irrigated with saline and medical management was applied. A pressure dressing was also applied. During the course of her hospitalization, the patient was placed on diuretics ultimately she was discharged to [facility] nebulized [facility] clock on oral Lasix 40 mg twice a day and Zaroxolyn 5 mg once a week in addition to that the patient was also given a prednisone burst taper, discharge. She was also utilizing albuterol/Atrovent nebulized treatment [id number]. She was receiving IV cefepime at the alf.. The wound cultures were obtained on 07/11/2019 showed Acinetobacter pneumoniae in addition to anaerobic gram-negative bacillus and gram-positive copious. The patient came in to the emergency department yesterday because of being lethargic and drowsy. She bounced back within 24 hours of being discharged home. She was complaining of shortness of breath and she has also altered mentation. The patient was found to be quite short of breath and tachypneic. Her white cell count was at 15.0. Hemoglobin was at 10.0. The patient a BUN of 69 with a creatinine of 1.2. Serum sodium level was 146 with a serum bicarb of 38. Her blood sugar was around 236 at time of admission and her BNP level was 7508 with a total protein of 6.0 and an albumin of 3.4. Cardiac enzymes/troponin's were negative. Echocardiogram Echo showed concentric LVH with an EF around 55%. The patient also has mild aortic sclerosis, moderate calcification of the mitral valve and the PA pressure 45 consistent with moderate to severe pulmonary hypertension. I saw this patient again in the emergency department. She was already receiving a pressure of 12/6 cm of water overnight with an FiO2 of 60%. Her chest x-ray shows Solu-Medrol small lateral pleural effusions. She has a elevated today hemidiaphragm. She is in atrial fibrillation. Mental status is improved for no w. She looks to be alert and awake. On 07/15/2019 she seen in follow-up on selective care unit, she remains on IV Lasix, she is in -460 mL fluid balance, she has been wearing BiPAP intermittently, with pressures of 12/6, and FiO2 of 60%, has quite significant lower extremity edema, but she states she is feeling better, and breathing easier, she is currently sitting up in the chair, on 4 L of oxygen and her pulse ox is 94%, today's labs have been reviewed, showing sodium of 146, potassium 3.8, chloride is 101, CO2 is 40, B1 is 67 creatinine is 1.14. Her Lasix dose is 40 mg every 12 hours in addition to weekly dose of Zaroxolyn. She is in atrial fibrillation, slightly tachycardic, with a rate of 102-129 BPM. She is on IV antibiotics for Acinetobacter pneumonia in her lower extremity wounds On 07/18/2019 patient seen in follow-up on selective care unit, currently resting in bed, the nursing staff patient has been refusing BiPAP support at night, according to the patient the BiPAP has not been applied at nighttime. Remains on diuretics, she is in negative fluid balance, - 850. Still has significant lower extremity edema, some dizziness chronic, remains on Unasyn for Acinetobacter pneumonia in her lower extremity wounds. No fever or chills, 2 L of oxygen during the day, with a pulse ox of 96%, denies any acute distress, pacing chest pain, breathing seems to be stable. On 07/19/2019 patient seen in follow-up in general medical floor, she is awake and alert, in no acute distress, she is on 2 L currently with pulse ox of 94%, breathing easier, denies any shortness of breath, no significant cough or congestion, lung sounds are diminished, with minimal rhonchi, afebrile, patient remains on antibiotics in the form of Unasyn for cellulitis in bilateral lower extremities, lower extremities are less swollen, patient does have a chronic lower extremity edema and chronic venous stasis in bilateral lower extremities, hemodynamically she remains stable, she remains on IV diuretics on Lasix, 40 mg every 12 hours, and she is in -1960 mL fluid balance over the last 24 hours. Patient has a good appetite, she denies any specific complaints today, appears to be more alert on today's exam, she did ask for her BiPAP last night and she states she worked most of the night. Objective - Vital Signs Vital signs: Vital Signs Temp 98.2 F 07/19/19 07:00 Pulse 88 07/19/19 07:40 Resp 12 07/19/19 07:00 BP 112/72 07/19/19 07:00 Pulse Ox 94 L 07/19/19 07:28 Intake & Output 07/18/19 07/19/19 07/19/19 18:59 06:59 18:59 Intake Total 960 Output Total 550 400 Balance 410 -400 Intake: Oral 960 Output: Urine 550 400 Other: Voiding Method Indwelling Catheter Indwelling Catheter # Bowel Movements 1 - Exam Gen. appearance obese, comfortable in the 1-year-old white female, currently on 2 L of oxygen any significant respiratory distress. She is off the BiPAP for now on 2 L of oxygen by nasal cannula. She was using BiPAP overnight at a pressure of 12/6 with an FiO2 of 40%. Head exam was generally normal. There was no scleral icterus or corneal arcus. Mucous membranes were moist. Neck was supple and without jugular venous distension, thyromegaly, or carotid bruits. Carotids were easily palpable bilaterally. There was no adenopathy. Lungs sounds are diminished in the lower lung whitt bilaterally along with some dullness to percussion. No wheezes or rhonchi. The breath sounds are more diminished on the right compared to the left. Cardiac exam revealed the PMI to be normally situated and sized. The rhythm was irregular secondary to atrial fibrillation and and no extrasystoles were noted during several minutes of auscultation. The first and second heart sounds were normal and physiologic splitting of the second heart sound was noted. There were no murmurs, rubs, clicks, or gallops. Abdominal exam revealed normal bowel sounds. The abdomen was soft, non-tender, and without masses, organomegaly, or appreciable enlargement of the abdominal aorta. Organs cannot be accurately palpated as patient is obese extremities revealed +1-2 pitting edema addition to diminished pulses in lower extremities bilaterally and the patient has a 4 x 4 centimeter left heel ulcer that was debrided today and another 1 cm ulcer with central dilation tissue on the right. Bilateral lower extremities covered with dressings, no erythema, no warmth, and edema seems to have improved. Neurologically awake and alert and there is no focal neurological deficit there is motor weakness lower extremities bilaterally. - Labs CBC & Chem 7: 07/13/19 15:48 07/18/19 05:49 Labs: Abnormal Lab Results - Last 24 Hours (Table) 07/18/19 07/18/19 07/18/19 Range/Units 12:03 17:05 20:56 PT (9.0-12.0) sec INR (<1.2) POC Glucose (mg/dL) 125 H 187 H 234 H (75-99) mg/dL 07/19/19 07/19/19 Range/Units 06:29 06:54 PT 17.1 H (9.0-12.0) sec INR 1.7 H (<1.2) POC Glucose (mg/dL) 154 H (75-99) mg/dL Assessment and Plan Plan: Assessment: 1 CHF with diastolic heart failure, and the patient has small bilateral pleural effusions. She does have small lung volumes and some limited atelectatic changes in lung bases. 2 bilateral pleural effusion secondary to above 3 chronic hypoxic respiratory failure with possibly component of chronic hypercapnic respiratory failure.. The patient's has more than 40 tachycardia smoking history and I'm sure she has a component of COPD along with a component of obesity hypoventilation syndrome/obstructive sleep apnea. This has been officially confirmed and the patient has not been able to tolerate CPAP. I think this is something to consider that again in the future 4 altered mental status and possibly due to a combination of COPD exacerbation and CHF exacerbation with CO2 narcosis, insulin-dependent therapy and diuresis 5 COPD with chronic hypercapnic and hypoxic history failure 6 previous history of DVT of lower extremity currently on anticoagulation with a therapeutic PT/INR 7 morbid obesity with a BMI of 44 8 bilateral heel ulcers post-debridement of the left heel ulcer measuring 4x4 cm cultures of been sent and the patient is currently covered with antibiotics 9 history of atrial fibrillation, the PT/INR is therapeutic for now with an INR of 2.4 10 hypertension 11 hyperlipidemia 12 osteoarthritis 13 stage II kidney disease, chronic 14 obstructive sleep apnea noncompliant to CPAP therapy unable to use 15 decubitus ulceration involving the coccyx 16 previous history of UTI with sepsis and the patient suffers from incontinence of the urine 17 gout 18 hypothyroidism 19 history of vertigo 20 rheumatoid arthritis 21 gout 22 mild leukocytosis 23 chronic metabolic alkalosis probably related to chronic hypercapnic respiratory failure Plan: Patient is doing well, breathing has improved, she is maintaining negative fluid balance remains on a common issue of Lasix and Zaroxolyn, fluid volume status has improved. Vital signs remain stable, afebrile, patient is on antibiotics for lower extremity cellulitis, from pulmonary perspective patient is stable for discharge to subacute rehab setting today, on BiPAP support and bedtime and as needed during the day, with settings of 12 and 6 and 40%. We believe patient will benefit from BiPAP support with above-mentioned settings in view of her history of COPD, chronic CHF, and obstructive sleep apnea. I performed a history & physical examination of the patient and discussed their management with my nurse practitioner, Sana Villalta. I reviewed the nurse practitioner's note and agree with the documented findings and plan of care. Lung sounds are positive for diminished breath sounds. The findings and the impression was discussed with the patient. I attest to the documentation by the nurse practitioner. Time with Patient: Less than 30
[2019-07-19] MEDS ORDERED: METOLAZONE 5 MG TAB PO SCH ×2 (09:00→10:30)
[2019-07-19 09:18] LABS: Basophils # (A) 0.1 k/uL (0-0.2); Basophils % (A) 1 %; Eosinophils # (A) 0.3 k/uL (0-0.7); Eosinophils % (A) 2 %; HCT 35.1 % (34.0-46.0); HGB 10.8 gm/dL (11.4-16.0); Hypochromasia Moderate; Lymphocytes # (A) 1.1 k/uL (1.0-4.8); Lymphocytes % (A) 9 %; MCH 30.5 pg (25.0-35.0); MCHC 30.6 g/dL (31.0-37.0); MCV 99.5 fL (80.0-100.0); Macrocytosis Slight; Mean Platelet Volume 9.9; Monocytes # (A) 0.6 k/uL (0-1.0); Monocytes % (A) 5 %; Neutrophils # (A) 9.6 k/uL (1.3-7.7); Neutrophils % (A) 81 %; Platelet Count 222 k/uL (150-450); RBC 3.53 m/uL (3.80-5.40); RDW 14.8 % (11.5-15.5); WBC 11.8 k/uL (3.8-10.6)
[2019-07-19 10:09] VITALS: RESP 15
--- NOTE | 2019-07-19 10:15 | P.DS ---
Providers Date of admission: 07/13/19 16:46 Expected date of discharge: 07/19/19 Attending physician: Dominick Rosen MD Consults: 07/13/19 16:46 Consult Physician Routine Consulting Provider: Eugenio Patrick Consult Reason/Comments: COPD/CHF Do you want consulting provider notified?: Yes Consult Physician Routine Consulting Provider: Jeff Covington Consult Reason/Comments: CHF/COPD Do you want consulting provider notified?: Yes 07/15/19 13:03 Consult Physician Routine Consulting Provider: Melly Yap Consult Reason/Comments: antibx rec Do you want consulting provider notified?: Yes Primary care physician: Linnea Alonso Hospital Course: Final Diagnoses: (1) Acute exacerbation of chronic obstructive pulmonary disease Current Visit: Yes Status: Acute Code(s): J44.1 - CHRONIC OBSTRUCTIVE PULMONARY DISEASE W (ACUTE) EXACERBATION SNOMED Code(s): 347447361 (2) Acute pulmonary edema Current Visit: Yes Status: Acute Code(s): J81.0 - ACUTE PULMONARY EDEMA SNOMED Code(s): 92522146 (3) Acute on chronic diastolic (congestive) heart failure Current Visit: No Status: Acute Code(s): I50.33 - ACUTE ON CHRONIC DIASTOLIC (CONGESTIVE) HEART FAILURE SNOMED Code(s): 987241405 (4) Atrial fibrillation with rapid ventricular response Current Visit: No Status: Acute Code(s): I48.91 - UNSPECIFIED ATRIAL FIBRIL LATION SNOMED Code(s): 832434238050025 (5) Type 2 diabetes mellitus Current Visit: No Status: Acute Code(s): E11.9 - TYPE 2 DIABETES MELLITUS WITHOUT COMPLICATIONS SNOMED Code(s): 05682181 (6) acute on chronic hypercapnic, hypoxic respiratory failure (7) bilateral heel ulcers status post debridement of left heel ulcer, cultures pending (8) bilateral pleural effusions secondary to CHF (9) morbid obesity, BMI 45.5 (10) chronic kidney disease, stage II (11) obstructive sleep apnea, noncompliant with CPAP Hospital course:Tamar Dominguez is an 79 yo F with PMH of systolic CHF, persistent atrial fibrillation, COPD, T2DM, hx DVT, lymphedema, was recently admitted last week from the wound center due to worsening pressure ulcer in her heel. She was seen by ID and vascular surgery at that time, underwent bone scan which was negative for osteomyelitis, underwent bedside debridement and was discharged to [facility]. During her hospitalization she was continued on her home dose of oral lasix 40 mg bid and metalozone 5 mg weekly. She was also discharged on a prednisone taper and recommended to continue duonebs. She returned to the ED 24 hours after discharge with shortness of breath. She was found to be tachypneic, WBC 15k, BUN 69, Cr 1.2, she was in atrial fibrillation at ventricular rate of 130 bpm. Pt was placed on BiPAP and given a dose of IV lasix. 07/15/2019 diuresing well on Lasix IV push with 24-hour I&O reflecting a ne gative fluid balance. Creatinine 1.14. Bilateral lower extremity edema improving BiPAP at bedside, wore during the night.Maintained on IV antibiotics of Unasyn , nebulized bronchodilators, steroids. Breathing improved reports nonproductive cough. Maintaining O2 sats in the 90s on 4 L nasal cannula. Telemetry reporting atrial fibrillation with rate better controlled, ranging from 100s to 120s. Cardizem drip discontinued, beta darius increased. 07/18/2019 continues to decline BiPAP at night, states unable to tolerate mask. Diuresing on Lasix IV push with 24-hour I&O reflecting a negative fluid balance. Maintaining O2 sats in the 90s on 2 L nasal cannula. Productive cough with guzman sputum reported, breathing improving. Chest x-ray stable reporting persistent cardiomegaly with pulmonary venous congestion, small effusions/atelectasis. Significant clinical improvement. Cleared by all consults for discharge. Patient is being discharged to [facility] subacute rehab in a stable condition with guarded prognosis. - Exam General: Alert and oriented 3, NAD Lungs: diminished air entry, bibasilar rales CV: Irregularly irregular, systolic murmur. Peripheral pulses 1+ Abdomen: soft, nondistended, no organomegaly,+BS Ext: bilateral LE chronic venous stasis with decreasing edema, tender. Bilateral lower extremity dressings clean dry and intact Neuro: A&Ox3, normal mood and affect The impression and plan of care has been dictated as directed. : I performed a history and examination of this patient, discussed the same with the dictator. I agree with the dictator's note ,documented as a scribe. Any additional findings or plans will be noted. Patient Condition at Discharge: Stable Plan - Discharge Summary Discharge Rx Participant: No New Discharge Prescriptions: New Spironolactone [Aldactone] 25 mg PO DAILY tab Metoprolol Tartrate [Lopressor] 100 mg PO BID tab Nystatin 100,000 Unit/ml Susp [Mycostatin Oral Susp] 500,000 unit PO QID 14 Days ml guaiFENesin-DM 100-10MG/5ML [Robitussin DM] 10 ml PO Q6H PRN ml PRN Reason: Cough Ampicillin-Sulbactam [Unasyn] 3 gm IVPB Q6HR 14 Days vial Metolazone [Zaroxolyn] 5 mg PO Q7D tab Warfarin [Coumadin] 7.5 mg PO DAILY #1 tab Continue Ubidecarenone [Co Q-10] 200 mg PO DAILY@1730 Potassium Chloride ER [K-Dur 20] 40 meq PO DAILY Atorvastatin [Lipitor] 40 mg PO HS Allopurinol [Zyloprim] 300 mg PO DAILY Liothyronine Sodium [Cytomel] 5 mcg PO DAILY@0600 Docusate [Colace] 100 mg PO DAILY cap Acetaminophen Tab [Tylenol] 650 mg PO Q4HR PRN tab PRN Reason: Fever and/ or MILD Pain Levothyroxine Sodium [Synthroid] 88 mcg PO DAILY@0600 Meclizine [Antivert] 12.5 mg PO TID Ipratropium-Albuterol Nebulize [Duoneb 0.5 mg-3 mg/3 ml Soln] 3 ml INHALATION RT-Q4H ml Insulin Detemir (Levemir) [Levemir] 30 unit SQ HS syr Pantoprazole Sodium [Protonix] 40 mg PO DAILY #30 tablet. Benzocaine/Menthol Lozeng [Cepacol lozenge] 1 lozenge MUCOUS MEM Q6H PRN PRN Reason: Sore Nipples Bisacodyl [Dulcolax] 10 mg RECTAL DAILY PRN PRN Reason: Constipation INSULIN LISPRO (humaLOG) [humaLOG] See Protocol SQ ACHS Ipratropium-Albuterol Nebulize [Duoneb 0.5 mg-3 mg/3 ml Soln] 3 ml INHALATION RT-Q4H PRN PRN Reason: Shortness Of Breath Isosorbide Dinitrate 30 mg PO DAILY Pierce Packet 1 packet PO BID@0800,1700 Magnesium Hydroxide [Milk of Magnesia Concentrate] 7,200 mg PO DAILY PRN PRN Reason: Constipation Na Phos,M-B/Na Phos,Di-Ba [Fleet Adult] 133 ml RECTAL DAILY PRN PRN Reason: Constipation traMADol HCL [Ultram] 50 mg PO QID PRN #12 tab PRN Reason: Pain Changed Furosemide [Lasix] 40 mg PO BID #0 Discontinued Metoprolol Tartrate [Lopressor] 50 mg PO BID@0800,1700 Discharge Medication List Potassium Chloride ER [K-Dur 20] 40 meq PO DAILY 03/22/18 [History] Ubidecarenone [Co Q-10] 200 mg PO DAILY@1730 03/22/18 [History] Allopurinol [Zyloprim] 300 mg PO DAILY 02/10/19 [History] Atorvastatin [Lipitor] 40 mg PO HS 02/10/19 [History] Liothyronine Sodium [Cytomel] 5 mcg PO DAILY@0600 02/10/19 [History] Acetaminophen Tab [Tylenol] 650 mg PO Q4HR PRN tab 02/21/19 [Rx] Docusate [Colace] 100 mg PO DAILY cap 02/21/19 [Rx] Levothyroxine Sodium [Synthroid] 88 mcg PO DAILY@0600 07/06/19 [History] Meclizine [Antivert] 12.5 mg PO TID 07/06/19 [History] Insulin Detemir (Levemir) [Levemir] 30 unit SQ HS syr 07/12/19 [Rx] Ipratropium-Albuterol Nebulize [Duoneb 0.5 mg-3 mg/3 ml Soln] 3 ml INHALATION RT-Q4H ml 07/12/19 [Rx] Pantoprazole Sodium [Protonix] 40 mg PO DAILY #30 tablet. 07/12/19 [Rx] Benzocaine/Menthol Lozeng [Cepacol lozenge] 1 lozenge MUCOUS MEM Q6H PRN 07/13/19 [History] Bisacodyl [Dulcolax] 10 mg RECTAL DAILY PRN 07/13/19 [History] INSULIN LISPRO (humaLOG) [humaLOG] See Protocol SQ ACHS 01/29/20 [History] Ipratropium-Albuterol Nebulize [Duoneb 0.5 mg-3 mg/3 ml Soln] 3 ml INHALATION RT-Q4H PRN 07/13/19 [History] Isosorbide Dinitrate 30 mg PO DAILY 07/13/19 [History] Pierce Packet 1 packet PO BID@0800,1700 07/13/19 [History] Magnesium Hydroxide [Milk of Magnesia Concentrate] 7,200 mg PO DAILY PRN 07/13/19 [History] Na Phos,M-B/Na Phos,Di-Ba [Fleet Adult] 133 ml RECTAL DAILY PRN 07/13/19 [History] Ampicillin-Sulbactam [Unasyn] 3 gm IVPB Q6HR 14 Days vial 07/19/19 [Rx] Furosemide [Lasix] 40 mg PO BID #0 07/19/19 [Rx] Metolazone [Zaroxolyn] 5 mg PO Q7D tab 07/19/19 [Rx] Metoprolol Tartrate [Lopressor] 100 mg PO BID tab 07/19/19 [Rx] Nystatin 100,000 Unit/ml Susp [Mycostatin Oral Susp] 500,000 unit PO QID 14 Days ml 07/19/19 [Rx] Spironolactone [Aldactone] 25 mg PO DAILY tab 07/19/19 [Rx] Warfarin [Coumadin] 7.5 mg PO DAILY #1 tab 07/19/19 [Rx] guaiFENesin-DM 100-10MG/5ML [Robitussin DM] 10 ml PO Q6H PRN ml 07/19/19 [Rx] traMADol HCL [Ultram] 50 mg PO QID PRN #12 tab 07/19/19 [Rx] Follow up Appointment(s)/Referral(s): Chandra Kim MD [STAFF PHYSICIAN] - 2 Weeks (Please follow up with bird sitter.) Will aKhn [NON-STAFF] - 1 Week Chris Arnold DO [Doctor of Osteopathic Medicine] - 4 Weeks (Follow up when discharged from [facility].) [facility] [NON-STAFF] - 1 Week Michel Oliver MD [STAFF PHYSICIAN] - 3 Days (While at subacute rehab) Patient Instructions/Handouts: Heart Failure (DC), Pleural Effusion (DC) Activity/Diet/Wound Care/Special Instructions: [place] Diet:"CHF Diet",1800 Fluid restrictions, Activity: as tolerated CBC, BMP in 3 days PT, INR daily ( DC Coumadin 7.5 mg last night, current INR today 1.7) [facility] wound care as previously ordered per ID CHF 1. Weigh yourself every morning after you urinate. If you gain 2-3 pounds overnight or 5 pounds in one week, call your primary physician for guidance on your medications. Keep a log of your weights. 2. Avoid salt, or foods with hidden salt. Extra salt makes your heart work harder and traps the fluid in your body for longer. 3. Take all of your medications as directed, especially your water pills. NEVER skip a dose. 4. Elevate your legs when you are not up moving around to help with circulation and prevent swelling. 5. Call your physician if you notice any extra swelling in your legs, ankles, feet or abdomen, if you have a new dry cough, if your shortness of breath worsens with activity or at rest, or if you feel more fatigued.
[2019-07-19 10:17] LABS: Albumin 3.1 g/dL (3.5-5.0); Total Bilirubin 0.7 mg/dL (0.2-1.3); Total Protein 5.8 g/dL (6.3-8.2)
--- NOTE | 2019-07-19 10:53 | P.PN ---
Subjective This is a pleasant 79-year-old female past medical history significant for coronary artery disease mild-moderate of the RCA and LAD 2017 cath, hypertension, diabetes mellitus, dyslipidemia, paroxysmal atrial fibrillation, chronic diastolic heart failure, COPD, history of DVT and chronic pressure ulcers to bilateral heels. She follows in the office with Dr. Kim. She is seen and examined sitting up in bed in no acute distress. She denies worsening shortness of breath. She has no chest pain, dizziness or palpitations. She is currently maintained on IV Lasix 40 mg twice a day, Aldactone 25 mg daily along with Zaroxolyn 5 mg once a week. She is also on atorvastatin 40 mg daily, Imdur 30 mg daily, Coumadin and Lopressor 100 mg twice a day. Blood pressure 112/72 heart rate 88 afebrile maintaining oxygen saturation on nasal cannula. Laboratory data reviewed, WBC 11.8, hemoglobin 10.8, platelets 222, INR 1.7, sodium 142, potassium 4.2, creatinine 1.11. GENERAL: Well-appearing, well-nourished and in no acute distress. NECK: Supple without JVD or thyromegaly. LUNGS: Breath sounds clear to auscultation bilaterally. Respiration equal and unlabored. No wheezes, rales or rhonchi. Diminished bilaterally. HEART: Irregular rate and rhythm with systolic ejection murmur at the left sternal border, no rubs or gallops. S1 and S2 heard. Distant heart sounds. EXTREMITIES: Normal range of motion, ongoing 2+ pitting edema likely chronic with bilateral discoloration noted. No clubbing or cyanosis. Peripheral pulses intact. ASSESSMENT Acute on chronic diastolic heart failure, EF 50-55% COPD Hypertension Dsylipidemia Mild non-obstructive CAD Paroxysmal atrial fibrillation on long-term anticoagulation with Coumadin Valvular heart disease. Mild aortic stenosis mean gradient 6 mmHg; moderate- severe MR and severe TR. Pulmonary hypertension, RVSP of 52 mmHg Obstructive sleep apnea Morbid obesity, BMI 48 PLAN Transition to oral diuretics, lasix 40 mg PO BID. Change metolazone to 5 mg daily. Follow up electrolytes in 3-5 days. Follow up with Dr. Kim in 2 weeks. Nurse Practitioner note has been reviewed, I agree with a documented findings and plan of care. Patient was seen and examined. Objective - Vital Signs Vital signs: Vital Signs Temp 98.2 F 07/19/19 07:00 Pulse 88 07/19/19 07:40 Resp 15 07/19/19 07:30 BP 112/72 07/19/19 07:00 Pulse Ox 94 L 07/19/19 07:28 Intake & Output 07/18/19 07/19/19 07/19/19 18:59 06:59 18:59 Intake Total 960 Output Total 550 400 Balance 410 -400 Intake: Oral 960 Output: Urine 550 400 Other: Voiding Method Indwelling Catheter Indwelling Catheter Indwelling Catheter # Bowel Movements 1 - Labs CBC & Chem 7: 07/19/19 06:29 07/19/19 06:29 Labs: Abnormal Lab Results - Last 24 Hours (Table) 07/18/19 07/18/19 07/18/19 Range/Units 12:03 17:05 20:56 WBC (3.8-10.6) k/uL RBC (3.80-5.40) m/uL Hgb (11.4-16.0) gm/dL MCHC (31.0-37.0) g/dL Neutrophils # (1.3-7.7) k/uL PT (9.0-12.0) sec INR (<1.2) Carbon Dioxide (22-30) mmol/L BUN (7-17) mg/dL Creatinine (0.52-1.04) mg/dL Glucose (74-99) mg/dL POC Glucose (mg/dL) 125 H 187 H 234 H (75-99) mg/dL Total Protein (6.3-8.2) g/dL Albumin (3.5-5.0) g/dL 07/19/19 07/19/19 07/19/19 Range/Units 06:29 06:29 06:29 WBC 11.8 H (3.8-10.6) k/uL RBC 3.53 L (3.80-5.40) m/uL Hgb 10.8 L (11.4-16.0) gm/dL MCHC 30.6 L (31.0-37.0) g/dL Neutrophils # 9.6 H (1.3-7.7) k/uL PT 17.1 H (9.0-12.0) sec INR 1.7 H (<1.2) Carbon Dioxide 39 H (22-30) mmol/L BUN 46 H (7-17) mg/dL Creatinine 1.11 H (0.52-1.04) mg/dL Glucose 120 H (74-99) mg/dL POC Glucose (mg/dL) (75-99) mg/dL Total Protein 5.8 L (6.3-8.2) g/dL Albumin 3.1 L (3.5-5.0) g/dL 07/19/19 Range/Units 06:54 WBC (3.8-10.6) k/uL RBC (3.80-5.40) m/uL Hgb (11.4-16.0) gm/dL MCHC (31.0-37.0) g/dL Neutrophils # (1.3-7.7) k/uL PT (9.0-12.0) sec INR (<1.2) Carbon Dioxide (22-30) mmol/L BUN (7-17) mg/dL Creatinine (0.52-1.04) mg/dL Glucose (74-99) mg/dL POC Glucose (mg/dL) 154 H (75-99) mg/dL Total Protein (6.3-8.2) g/dL Albumin (3.5-5.0) g/dL
[2019-07-19] MEDS: AMPICILLIN-SULBACTAM 3 GM in SODIUM CHLORIDE 0.9% 100 ML IVPB SCH ×2 (11:28→12:01)
[2019-07-19 11:45] LABS: Glucose,Whole Blood 110 mg/dL (75-99)
--- NOTE | 2019-07-19 14:09 | PN ---
PROGRESS NOTE DATE OF SERVICE: 07/19/2019 REASON FOR FOLLOWUP: Left heel infected pressure ulcer. INTERVAL HISTORY: The patient is currently afebrile. The patient has been breathing comfortably. Denies having any chest pain or cough. No nausea. No vomiting. No abdominal pain or pain to the left heel area. PHYSICAL EXAMINATION: Blood pressure 112/72 with a pulse of 76, temperature of 98.2, she is 98% on high-flow oxygen. General description is an elderly female up in the chair in no distress. RESPIRATORY SYSTEM: Unlabored breathing. Decreased intensity of breath sounds. No wheeze. HEART: S1, S2. Regular rate and rhythm. ABDOMEN: Soft. No tenderness. LABS: White count down to 11.8. Creatinine is 1.11. DIAGNOSTIC IMPRESSION AND PLAN: Patient with left heel infected pressure ulcer status post debridement. Culture revealed multiple pathogens including Acinetobacter and anaerobic gram-negative bacilli. Patient is covered with Unasyn 3 grams q.6 hours to continue for two weeks at the skilled nursing. Local wound care to continue with Medihoney. Keep the area off pressure. Continue with supportive care. MMODL / IJN: [id number] /
[2019-07-19] MEDS ORDERED: FUROSEMIDE 40 MG TAB PO SCH (16:00)
[2019-07-19 16:07] VITALS: PULSE 76
[2019-07-19] MEDS ORDERED: WARFARIN 10 MG TAB PO ONE (18:00)
== END 2019-07-19 15:55 | DRG 291 ==
LOC: EC 15:24 → SUPCPDRO 15:24 → 3SCARD 16:46 → 4SSUR 07-19 04:40
PROVIDERS: ADMIT Family Medicine; ATTEND Family Medicine
PROC: 5A09557 Assistance with Respiratory Ventilation, Greater than 96 Consecutive Hours, Continuous Positive Airway Pressure (ICD-10-PCS; principal; 2019-07-13)
DX: I13.0 Hypertensive heart and chronic kidney disease with heart failure and stage 1 through stage 4 chronic kidney disease, or unspecified chronic kidney disease (principal); L89.623 Pressure ulcer of left heel, stage 3; I50.33 Acute on chronic diastolic (congestive) heart failure; J96.21 Acute and chronic respiratory failure with hypoxia; G93.41 Metabolic encephalopathy; J96.22 Acute and chronic respiratory failure with hypercapnia; J44.1 Chronic obstructive pulmonary disease with (acute) exacerbation; I48.19 Other persistent atrial fibrillation; E11.52 Type 2 diabetes mellitus with diabetic peripheral angiopathy with gangrene; E66.2 Morbid (severe) obesity with alveolar hypoventilation; Z68.42 Body mass index [BMI] 45.0-49.9, adult; E87.3 Alkalosis; L03.116 Cellulitis of left lower limb; E11.22 Type 2 diabetes mellitus with diabetic chronic kidney disease; M19.90 Unspecified osteoarthritis, unspecified site; M06.9 Rheumatoid arthritis, unspecified; E78.5 Hyperlipidemia, unspecified; K21.9 Gastro-esophageal reflux disease without esophagitis; E03.9 Hypothyroidism, unspecified; I27.20 Pulmonary hypertension, unspecified; N18.3 Chronic kidney disease, stage 3 (moderate); R32 Unspecified urinary incontinence; M10.9 Gout, unspecified; G43.909 Migraine, unspecified, not intractable, without status migrainosus; Z96.651 Presence of right artificial knee joint; Z96.1 Presence of intraocular lens; E04.9 Nontoxic goiter, unspecified; E27.9 Disorder of adrenal gland, unspecified; I70.0 Atherosclerosis of aorta; L89.159 Pressure ulcer of sacral region, unspecified stage; L89.619 Pressure ulcer of right heel, unspecified stage; B96.89 Other specified bacterial agents as the cause of diseases classified elsewhere; I83.12 Varicose veins of left lower extremity with inflammation; I83.11 Varicose veins of right lower extremity with inflammation; I07.1 Rheumatic tricuspid insufficiency; I25.10 Atherosclerotic heart disease of native coronary artery without angina pectoris; I89.0 Lymphedema, not elsewhere classified; Z71.3 Dietary counseling and surveillance; Z79.890 Hormone replacement therapy; Z79.4 Long term (current) use of insulin; Z99.81 Dependence on supplemental oxygen; Z79.899 Other long term (current) drug therapy; Z91.19 Patient's noncompliance with other medical treatment and regimen; Z87.39 Personal history of other diseases of the musculoskeletal system and connective tissue; Z86.718 Personal history of other venous thrombosis and embolism; Z87.01 Personal history of pneumonia (recurrent); Z87.440 Personal history of urinary (tract) infections; Z90.710 Acquired absence of both cervix and uterus; Z98.42 Cataract extraction status, left eye; Z98.41 Cataract extraction status, right eye; Z98.890 Other specified postprocedural states; Z87.891 Personal history of nicotine dependence; Z88.2 Allergy status to sulfonamides; Z88.7 Allergy status to serum and vaccine; Z91.048 Other nonmedicinal substance allergy status; Z82.49 Family history of ischemic heart disease and other diseases of the circulatory system
CPT/HCPCS: 36415; 36600; 71045; 80048; 80053; 82550; 82805; 83605; 83735; 83880; 84132; 84443; 84484; 85025; 85610; 85730; 93005; 93306; 94640; 94660; 94760; 96365; 96366; 96368; 96375; 96376; 99291

== ENCOUNTER → 2019-08-11 | Outpatient (CLI) | payer MEDICARE | END | disposition home or self-care (01) | LOC: RADUSWWP 13:59 | PROVIDERS: ATTEND Thoracic Surgery (Cardiothoracic Vascular Surgery) | DX: Z53.9 Procedure and treatment not carried out, unspecified reason (principal) ==

== ENCOUNTER 2019-09-21 12:33 | Inpatient (IN) | payer MEDICARE ==
[2019-09-21] MEDS ORDERED: SODIUM CHLORIDE 0.9% 500 ML 500 ML IV STA ×2 (12:42→14:34)
[2019-09-21] MEDS ORDERED: SODIUM CHLORIDE 0.9% 1,000 ML IV STA (12:42)
--- NOTE | 2019-09-21 12:46 | ED ---
Altered Mental Status HPI - General Stated Complaint: Abn Labs Time Seen by Provider: 09/21/19 12:33 Source: patient, EMS, RN notes reviewed, old records reviewed Mode of arrival: EMS - History of Present Illness Initial Comments: This is an 79-year-old female history of multiple medical problems including frequent UTIs who is sent in from [facility] today because of confusion decrease level of consciousness. Additionally she was having worsening renal failure increased confusion and lethargy and noted have a coagulopathy with a INR of 6.2 up from 4.6 yesterday. No fever reported the patient does have a slight cough that had developed apparently. No nausea no vomiting. The plays BUN was 187 creatinine was 2.1. No other current modifying factors MD Complaint: confusion, decreased responsiveness - Related Data Home Medications Medication Instructions Recorded Confirmed Potassium Chloride ER [K-Dur 20] 40 meq PO DAILY@0800 03/22/18 09/21/19 Ubidecarenone [Co Q-10] 200 mg PO DAILY@1700 03/22/18 09/21/19 Allopurinol [Zyloprim] 300 mg PO DAILY@0802/10/19 09/21/19 Atorvastatin [Lipitor] 40 mg PO HS@2100 02/10/19 09/21/19 Liothyronine Sodium [Cytomel] 5 mcg PO DAILY@0602/10/19 09/21/19 Levothyroxine Sodium [Synthroid] 88 mcg PO DAILY@0607/06/19 09/21/19 Meclizine [Antivert] 12.5 mg PO TID@0800,1200,1700 07/06/19 09/21/19 Benzocaine/Menthol Lozeng [Cepacol 1 lozenge MUCOUS MEM Q6H PRN 07/13/19 lozenge] Bisacodyl [Dulcolax] 10 mg RECTAL DAILY PRN 07/13/19 09/21/19 INSULIN LISPRO (humaLOG) [humaLOG] See Protocol SQ ACHS 07/13/19 09/21/19 Ipratropium-Albuterol Nebulize 3 ml INHALATION RT-Q4H PRN 07/13/19 09/21/19 [Duoneb 0.5 mg-3 mg/3 ml Soln] Isosorbide Dinitrate 30 mg PO DAILY@0800 07/13/19 09/21/19 Pierce Packet 1 packet PO BID@0800,1700 07/13/19 09/21/19 Magnesium Hydroxide [Milk of 7,200 mg PO DAILY PRN 07/13/19 09/21/19 Magnesia Concentrate] Na Phos,M-B/Na Phos,Di-Ba [Fleet 133 ml RECTAL DAILY PRN 07/13/19 09/21/19 Adult] Acetaminophen Tab [Tylenol] 650 mg PO Q4HR PRN 09/21/19 09/21/19 Docusate [Colace] 100 mg PO DAILY@0809/21/19 09/21/19 Furosemide [Lasix] 40 mg PO DAILY@79909/21/19 09/21/19 Insulin Detemir (Levemir) [Levemir] 30 unit SQ HS@2100 09/21/19 09/21/19 Lidocaine 5% Oint [Xylocaine 5% 1 applic TOPICAL DAILY PRN 09/21/19 09/21/19 Oint] Metoprolol Tartrate [Lopressor] 100 mg PO BID@0800,1700 09/21/19 09/21/19 Pantoprazole Sodium [Protonix] 40 mg PO DAILY@0600 09/21/19 09/21/19 traMADol HCL [Ultram] 50 mg PO Q8H PRN 09/21/19 09/21/19 Previous Rx's Medication Instructions Recorded Ipratropium-Albuterol Nebulize 3 ml INHALATION RT-Q4H ml 07/12/19 [Duoneb 0.5 mg-3 mg/3 ml Soln] guaiFENesin-DM 100-10MG/5ML 10 ml PO Q6H PRN ml 07/19/19 [Robitussin DM] Allergies Allergy/AdvReac Type Severity Reaction Status Date / Time iron Allergy Rash/Hives Verified 09/21/19 13:42 Sulfa (Sulfonamide Allergy Rash/Hives Verified 09/21/19 13:42 Antibiotics) Tetanus Vaccines and Toxoid Allergy Swelling Verified 09/21/19 13:42 Review of Systems ROS Statement: Those systems with pertinent positive or pertinent negative responses have been documented in the HPI. ROS Other: All systems not noted in ROS Statement are negative. Past Medical History Past Medical History: Atrial Fibrillation, Heart Failure, COPD, Diabetes Mellitus, Deep Vein Thrombosis (DVT), GERD/Reflux, Hyperlipidemia, Hypertension, Osteoarthritis (OA), Pneumonia, Renal Disease, Respiratory Disorder, Rheumatoid Arthritis (RA), Sleep Apnea/CPAP/BIPAP, Thyroid Disorder Additional Past Medical History / Comment(s): Pt recently admitted to [facility] on 07/06/19 with pressure injury bilateral heels/gangrene, acute on chronic chf, cellulitis L lower extremity, bilateral pleural effusion. Other hx: Chronic respiratory failure, home O2 at 2L/NC, possible mild pulmonary HTN, JOSR but no longer uses her device, lower extremity edema/redness/cellulitis, bilateral heel wounds,pt states she currently has a decubitus on her coccyx, IDDM type II, neuropathy bilateral hands/feet, CKD stage III, pt states she has had "bleeding in the kidneys" in the past, anemia, UTI with sepsis, incontinent of urine and occasionally stool, migraines, gout, hypothyroid, vertigo. History of Any Multi-Drug Resistant Organisms: None Reported Past Surgical History: Heart Catheterization, Hysterectomy, Joint Replacement, Orthopedic Surgery Additional Past Surgical History / Comment(s): L heel debridement with bx, midline, cardiac cath 2017-treated medically, R total knee replacement, L foot heel spur, sanjana cataracts with lens implants, cystoscopy, EGD, colonoscopy. Past Anesthesia/Blood Transfusion Reactions: No Reported Reaction Additional Psychological History / Comment(s): since 1997. Pt currently at [facility] for rehab. She states she is always in bed d/t bilateral heel wounds. No travel. experience. No animal exposures. stopped smoking several years ago no history of recreational drug use - Past Family History Mother Family Medical History: Renal Disease Father Family Medical History: Coronary Artery Disease (CAD) General Exam - General Exam Comments Initial Comments: This is a well-developed well-nourished awake alert seemingly oriented x3 female at this time General appearance: alert, in no apparent distress Head exam: Present: atraumatic, normocephalic, normal inspection Eye exam: Present: normal appearance, PERRL, EOMI. Absent: scleral icterus, conjunctival injection, periorbital swelling ENT exam: Present: mucous membranes dry Neck exam: Present: normal inspection, full ROM, other (No stridor JVD or bruits). Absent: tenderness, meningismus, lymphadenopathy Respiratory exam: Present: decreased breath sounds. Absent: respiratory distress, wheezes, rales, rhonchi, stridor Cardiovascular Exam: Present: regular rate, normal rhythm, normal heart sounds. Absent: systolic murmur, diastolic murmur, rubs, gallop, clicks GI/Abdominal exam: Present: soft, normal bowel sounds. Absent: distended, tend erness, guarding, rebound, rigid Extremities exam: Present: full ROM, normal capillary refill, other (Stasis dermatitis bilaterally with erythema to both lower extremities. Both feet in bunny boots). Absent: tenderness, pedal edema, joint swelling, calf tenderness Back exam: Present: normal inspection Neurological exam: Present: alert, oriented X3, CN II-XII intact Psychiatric exam: Present: normal affect, normal mood Skin exam: Present: warm, dry, intact, normal color. Absent: rash Course Vital Signs 09/21/19 09/21/19 09/21/19 12:35 13:00 13:30 Temperature 98.3 F Pulse Rate 88 86 82 Respiratory 18 18 18 Rate Blood Pressure 101/73 101/73 107/61 O2 Sat by Pulse 98 97 98 Oximetry 09/21/19 14:56 Temperature Pulse Rate 80 Respiratory 18 Rate Blood Pressure 91/60 O2 Sat by Pulse 98 Oximetry Medical Decision Making - Medical Decision Making I did discuss the findings with Dr. Montgomery the patient will be admitted evidence of UTI acute renal failure as well as right lower lobe pneumonia. She'll be placed on IV antibiotics. IV fluids. Consultation by Dr. Barber and Dr. Voss - Lab Data Result diagrams: 09/21/19 12:45 09/21/19 12:45 Lab Results 09/21/19 09/21/19 09/21/19 Range/Units 12:45 12:45 12:45 WBC 11.6 H (3.8-10.6) k/uL RBC 4.72 (3.80-5.40) m/uL Hgb 14.2 (11.4-16.0) gm/dL Hct 42.6 (34.0-46.0) % MCV 90.2 (80.0-100.0) fL MCH 30.1 (25.0-35.0) pg MCHC 33.4 (31.0-37.0) g/dL RDW 15.8 H (11.5-15.5) % Plt Count 192 (150-450) k/uL Neutrophils % 68 % Lymphocytes % 22 % Monocytes % 5 % Eosinophils % 3 % Basophils % 1 % Neutrophils # 7.9 H (1.3-7.7) k/uL Lymphocytes # 2.5 (1.0-4.8) k/uL Monocytes # 0.6 (0-1.0) k/uL Eosinophils # 0.3 (0-0.7) k/uL Basophils # 0.1 (0-0.2) k/uL Poikilocytosis Slight Sodium (137-145) mmol/L Potassium (3.5-5.1) mmol/L Chloride (98-107) mmol/L Carbon Dioxide (22-30) mmol/L Anion Gap mmol/L BUN (7-17) mg/dL Creatinine (0.52-1.04) mg/dL Est GFR (CKD-EPI)AfAm (>60 ml/min/1.73 sqM) Est GFR (CKD-EPI)NonAf (>60 ml/min/1.73 sqM) Glucose (74-99) mg/dL Plasma Lactic Acid Oscar 1.5 (0.7-2.0) mmol/L Calcium (8.4-10.2) mg/dL Magnesium (1.6-2.3) mg/dL Total Bilirubin (0.2-1.3) mg/dL AST (14-36) U/L ALT (4-34) U/L Alkaline Phosphatase (38-126) U/L Ammonia <9 (<30) umol/L Creatine Kinase (30-135) U/L Troponin I (0.000-0.034) ng/mL Total Protein (6.3-8.2) g/dL Albumin (3.5-5.0) g/dL Urine Color Light Yellow Urine Appearance Cloudy H (Clear) Urine pH 5.5 (5.0-8.0) Ur Specific Bishop 1.014 (1.001-1.035) Urine Protein Trace H (Negative) Urine Glucose (UA) Negative (Negative) Urine Ketones Negative (Negative) Urine Blood Small H (Negative) Urine Nitrite Positive H (Negative) Urine Bilirubin Negative (Negative) Urine Urobilinogen <2.0 (<2.0) mg/dL Ur Leukocyte Esterase Large H (Negative) Urine RBC 16 H (0-5) /hpf Urine WBC >182 H (0-5) /hpf Urine WBC Clumps Many H (None) /hpf Urine Bacteria Many H (None) /hpf Urine Mucus Rare H (None) /hpf 09/21/19 09/21/19 Range/Units 12:45 12:45 WBC (3.8-10.6) k/uL RBC (3.80-5.40) m/uL Hgb (11.4-16.0) gm/dL Hct (34.0-46.0) % MCV (80.0-100.0) fL MCH (25.0-35.0) pg MCHC (31.0-37.0) g/dL RDW (11.5-15.5) % Plt Count (150-450) k/uL Neutrophils % % Lymphocytes % % Monocytes % % Eosinophils % % Basophils % % Neutrophils # (1.3-7.7) k/uL Lymphocytes # (1.0-4.8) k/uL Monocytes # (0-1.0) k/uL Eosinophils # (0-0.7) k/uL Basophils # (0-0.2) k/uL Poikilocytosis Sodium 136 L (137-145) mmol/L Potassium 4.3 (3.5-5.1) mmol/L Chloride 94 L (98-107) mmol/L Carbon Dioxide 32 H (22-30) mmol/L Anion Gap 10 mmol/L BUN 187 H* (7-17) mg/dL Creatinine 2.19 H (0.52-1.04) mg/dL Est GFR (CKD-EPI)AfAm 24 (>60 ml/min/1.73 sqM) Est GFR (CKD-EPI)NonAf 21 (>60 ml/min/1.73 sqM) Glucose 161 H (74-99) mg/dL Plasma Lactic Acid Oscar (0.7-2.0) mmol/L Calcium 10.5 H (8.4-10.2) mg/dL Magnesium 2.4 H (1.6-2.3) mg/dL Total Bilirubin 0.8 (0.2-1.3) mg/dL AST 28 (14-36) U/L ALT 23 (4-34) U/L Alkaline Phosphatase 110 (38-126) U/L Ammonia (<30) umol/L Creatine Kinase <20 L (30-135) U/L Troponin I 0.024 (0.000-0.034) ng/mL Total Protein 7.0 (6.3-8.2) g/dL Albumin 4.3 (3.5-5.0) g/dL Urine Color Urine Appearance (Clear) Urine pH (5.0-8.0) Ur Specific Bishop (1.001-1.035) Urine Protein (Negative) Urine Glucose (UA) (Negative) Urine Ketones (Negative) Urine Blood (Negative) Urine Nitrite (Negative) Urine Bilirubin (Negative) Urine Urobilinogen (<2.0) mg/dL Ur Leukocyte Esterase (Negative) Urine RBC (0-5) /hpf Urine WBC (0-5) /hpf Urine WBC Clumps (None) /hpf Urine Bacteria (None) /hpf Urine Mucus (None) /hpf - Radiology Data Radiology results: report reviewed (I did review the imaging evidence of right lung infiltrate.), image reviewed Disposition Clinical Impression: Right lower lobe pneumonia, Urinary tract infection, Acute kidney injury Disposition: ADMITTED IP TO THIS HOSP Condition: Fair Referrals: Dwain Weathers MD [Primary Care Provider] - 1-2 days
[2019-09-21 13:12] LABS: Basophils # (A) 0.1 k/uL (0-0.2); Basophils % (A) 1 %; Eosinophils # (A) 0.3 k/uL (0-0.7); Eosinophils % (A) 3 %; HCT 42.6 % (34.0-46.0); HGB 14.2 gm/dL (11.4-16.0); Lymphocytes # (A) 2.5 k/uL (1.0-4.8); Lymphocytes % (A) 22 %; MCH 30.1 pg (25.0-35.0); MCHC 33.4 g/dL (31.0-37.0); MCV 90.2 fL (80.0-100.0); Mean Platelet Volume 9.6; Monocytes # (A) 0.6 k/uL (0-1.0); Monocytes % (A) 5 %; Neutrophils # (A) 7.9 k/uL (1.3-7.7); Neutrophils % (A) 68 %; Platelet Count 192 k/uL (150-450); Poikilocytosis Slight; RBC 4.72 m/uL (3.80-5.40); RDW 15.8 % (11.5-15.5); WBC 11.6 k/uL (3.8-10.6)
[2019-09-21 13:18] LABS: Appearance,Urine Cloudy (Clear); Bacteria,Urine Many /hpf; Bilirubin,Urine Negative (Negative); Blood,Urine Small (Negative); Color,Urine Light Yellow; Glucose,Urine (UA) Negative (Negative); Ketones,Urine Negative (Negative); Leukocyte Esterase,Urine Large (Negative); Mucus,Urine Rare /hpf; Nitrite,Urine Positive (Negative); PH, Urine 5.5 (5.0-8.0); Protein,Urine Trace (Negative); RBC,Urine 16 /hpf (0-5); Specific Gravity,Urine 1.014 (1.001-1.035); Urobilinogen,Urine <2.0 mg/dL (<2.0); WBC,Urine >182 /hpf (0-5)
[2019-09-21 13:21] LABS: ALT 23 U/L (4-34); AST 28 U/L (14-36); African American GFR (CKD) 24 (>60 ml/min/1.73 sqM); Albumin 4.3 g/dL (3.5-5.0); Alkaline Phosphatase 110 U/L (38-126); Anion Gap 10 mmol/L; Calcium 10.5 mg/dL (8.4-10.2); Carbon Dioxide 32 mmol/L (22-30); Chloride 94 mmol/L (98-107); Creatine Kinase <20 U/L (30-135); Glucose 161 mg/dL (74-99); Magnesium 2.4 mg/dL (1.6-2.3); Non-African American GFR(CKD) 21 (>60 ml/min/1.73 sqM); Potassium 4.3 mmol/L (3.5-5.1); Sodium 136 mmol/L (137-145); Total Bilirubin 0.8 mg/dL (0.2-1.3)
[2019-09-21 13:22] LABS: Lactic Acid, Venous 1.5 mmol/L (0.7-2.0)
--- NOTE | 2019-09-21 13:26 | XR ---
EXAMINATION TYPE: XR chest 1V portable DATE OF EXAM: 09/21/2019 COMPARISON: 07/18/2019 INDICATION: Altered mental status cough TECHNIQUE: Single frontal view of the chest is obtained. Patient is rotated to the right FINDINGS: The heart size is enlarged. The pulmonary vasculature is normal. Mild infiltrate appears to be within the right mid and upper lung field. There may be some improvemen t of the left lower lobe infiltrate previous. IMPRESSION: 1. Mild right lung infiltrate. 2. Resolving left lower lobe infiltrate
[2019-09-21 13:54] LABS: Blood Urea Nitrogen 187 mg/dL (7-17)
[2019-09-21] MEDS ORDERED: cefTRIAXone IN SWFI 1,000 MG/10 ML SYRINGE IVP STA (14:35)
[2019-09-21] MEDS ORDERED: PNEUMONIA PROTOCOL UTILIZED 1 EACH MISC PO PRN (15:24)
[2019-09-21] MEDS ORDERED: LEVOFLOXACIN 750MG-D5W PMX 750 MG in DEXTROSE/WATER 1 150ML.BAG IVPB STA (15:24)
[2019-09-21] MEDS ORDERED: PIPERACILLIN-TAZOBACTAM 3.375 GM in SODIUM CHLORIDE 0.9% 100 ML IVPB STA (15:24)
[2019-09-21] MEDS ORDERED: BENZOCAINE/MENTHOL LOZENG 1 EACH LOZENGE MUCOUS MEM PRN (15:27)
[2019-09-21] MEDS ORDERED: traMADol 50 MG TAB PO PRN (15:27)
[2019-09-21] MEDS ORDERED: LIDOCAINE 2% GEL 30 ML TUBE TOPICAL PRN (15:27)
[2019-09-21] MEDS ORDERED: MAGNESIUM HYDROXIDE 2,400 MG/10 ML CUP PO PRN (15:27)
[2019-09-21] MEDS ORDERED: NA PHOS,M-B/NA PHOS,DI-BA 133 ML ENEMA RECTAL PRN (15:27)
[2019-09-21] MEDS ORDERED: guaiFENesin-DM 100-10MG/5ML 10 ML CUP PO PRN (15:27)
[2019-09-21] MEDS ORDERED: BISACODYL 10 MG SUPP RECTAL PRN (15:27)
[2019-09-21] MEDS ORDERED: DOPamine DRIP 800 MG in DEXTROSE/WATER 1 250ML.BAG IV ONE (15:39)
[2019-09-21 16:59] LABS: Glucose,Whole Blood 157 mg/dL (75-99)
[2019-09-21] MEDS ORDERED: NON FORMULARY DRUG (Ubidecarenone [Co Q-10] 200 MG) PO SCH (17:00)
[2019-09-21] MEDS ORDERED: JUVEN PO SCH (17:00)
[2019-09-21] MEDS: SODIUM CHLORIDE 0.9% 1,000 ML IV SCH (17:07)
[2019-09-21] MEDS: MECLIZINE 12.5 MG TAB PO SCH (17:07)
[2019-09-21] MEDS: METOPROLOL TARTRATE 50 MG TAB PO SCH (17:07)
[2019-09-21] MEDS: ALBUTEROL HFA INHALER INHALATION SCH ×2 (17:45→19:13)
[2019-09-21 21:58] LABS: Glucose,Whole Blood 183 mg/dL (75-99)
[2019-09-21] MEDS: PIPERACILLIN-TAZOBACTAM 3.375 GM in SODIUM CHLORIDE 0.9% 100 ML IVPB SCH (22:05)
[2019-09-21] MEDS: INSULIN DETEMIR (LEVEMIR) 100 UNIT/ML SYR SQ SCH (22:22)
[2019-09-21] MEDS: INSULIN ASPART (NovoLOG) 100 UNIT/ML VIAL SQ SCH (22:22)
[2019-09-22] MEDS: SODIUM CHLORIDE 0.9% 1,000 ML IV SCH ×3 (02:55→20:30)
[2019-09-22] MEDS: LIOTHYRONINE SODIUM 5 MCG TAB PO SCH (05:26)
[2019-09-22] MEDS: LEVOTHYROXINE 88 MCG TAB PO SCH (05:26)
[2019-09-22] MEDS: PANTOPRAZOLE 40 MG TABLET PO SCH (05:26)
[2019-09-22 07:00] LABS: Glucose,Whole Blood 125 mg/dL (75-99)
[2019-09-22] MEDS: INSULIN ASPART (NovoLOG) 100 UNIT/ML VIAL SQ SCH ×4 (07:01→20:22)
[2019-09-22] MEDS: ALBUTEROL HFA INHALER INHALATION SCH ×4 (07:09→20:23)
[2019-09-22] MEDS: TIOTROPIUM 18 MCG/PUFF INHALER INHALATION SCH (07:09)
[2019-09-22] MEDS ORDERED: POTASSIUM CHLORIDE ER 20 MEQ TAB.ER PO SCH (08:00)
[2019-09-22] MEDS: PIPERACILLIN-TAZOBACTAM 3.375 GM in SODIUM CHLORIDE 0.9% 100 ML IVPB SCH ×2 (08:43→20:30)
[2019-09-22] MEDS: DOCUSATE 100 MG CAP PO SCH (08:48)
[2019-09-22] MEDS: METOPROLOL TARTRATE 50 MG TAB PO SCH ×2 (08:48→17:10)
[2019-09-22] MEDS: MECLIZINE 12.5 MG TAB PO SCH ×3 (08:49→17:10)
[2019-09-22] MEDS: ISOSORBIDE DINITRATE 10 MG TAB PO SCH (08:49)
--- NOTE | 2019-09-22 08:53 | XR ---
EXAMINATION TYPE: XR chest 2V DATE OF EXAM: 09/22/2019 COMPARISON: 09/21/2019 INDICATION: Pneumonia TECHNIQUE: Frontal and lateral views of the chest are obtained. FINDINGS: The heart size is normal. The pulmonary vasculature is slightly prominent. There is some scattered increased lung markings bases better visualized on the lateral projection in the lower lobe. This is likely at the right base. IMPRESSION: 1. Small right lower lobe infiltrate.
[2019-09-22 09:35] VITALS: BMI 38.4
[2019-09-22 11:39] LABS: Glucose,Whole Blood 184 mg/dL (75-99)
[2019-09-22 12:00] LABS: HCT 38.8 % (34.0-46.0); HGB 12.9 gm/dL (11.4-16.0); MCH 30.3 pg (25.0-35.0); MCHC 33.2 g/dL (31.0-37.0); MCV 91.2 fL (80.0-100.0); Mean Platelet Volume 9.5; Platelet Count 163 k/uL (150-450); RBC 4.25 m/uL (3.80-5.40); RDW 15.6 % (11.5-15.5); WBC 10.2 k/uL (3.8-10.6)
--- NOTE | 2019-09-22 14:20 | US ---
EXAMINATION TYPE: US transvaginal DATE OF EXAM: 09/22/2019 COMPARISON: CT urogram from 2016 CLINICAL HISTORY: vaginal bleeding . Bleeding patient states she had a hysterectomy over 40 years ago . Unable to tolerate transvaginal ultrasound to much pain. Exam limited due to pain and body habitus. TECHNIQUE: Transvaginal (TV) and Transabdominal (TA) . EXAM MEASUREMENTS: Uterus: Surgically absent cm Endometrial Stripe: Surgically absent cm Right Ovary: Surgically absent cm Left Ovary: Surgically absent cm Images saved show no concerning pelvic mass or fluid collection. Ovaries not identified. IMPRESSION: As above. I do suspect at least remnant left ovary based on 2016 CT axial image 64. This could not be identified on this study.
[2019-09-22 16:08] LABS: Calcium 9.9 mg/dL (8.4-10.2); Potassium 3.8 mmol/L (3.5-5.1)
[2019-09-22 16:32] LABS: Glucose,Whole Blood 210 mg/dL (75-99)
--- NOTE | 2019-09-22 17:35 | P.OBCN ---
History of Present Illness Consult date: 09/22/19 Requesting physician: Dominick Rosen Reason for consult: other (Questionable vaginal bleeding) Chief complaint: Admitted for urinary tract infection and mental confusion History of present illness: This is an 79-year-old female 4 para 4 who presented from a [facility] for UTI and increasing mental confusion. Nursing staff did note some vaginal bleeding with some clots when they were doing marivel-care. She does have an indwelling Hayes catheter and the urine is clear within the catheter. The patient states she has noticed the bleeding for the past couple days. She denies any rectal bleeding. She states she has not had a bowel movement since she has been to the hospital. The patient does give a history of a hysterectomy 40 years ago for some sort of female cancer or precancer. She states she did not ever get any chemo or radiation, just the hysterectomy area she does state it was a complete hysterectomy. Patient has multiple other medical conditions including diabetes. Pelvic ultrasound was performed and very limited due to the fact the patient declined vaginal ultrasound. Uterus is absent, ovaries are absent, and no masses are seen. Review of Systems Genitourinary: Reports abnormal vaginal bleeding, Denies pelvic pain Menstruation: Reports post hysterectomy Past Medical History Past Medical History: Atrial Fibrillation, Heart Failure, COPD, Diabetes Me llitus, Deep Vein Thrombosis (DVT), GERD/Reflux, Hyperlipidemia, Hypertension, Osteoarthritis (OA), Pneumonia, Renal Disease, Respiratory Disorder, Rheumatoid Arthritis (RA), Sleep Apnea/CPAP/BIPAP, Thyroid Disorder Additional Past Medical History / Comment(s): Pt recently admitted to [facility] on 07/06/19 with pressure injury bilateral heels/gangrene, acute on chronic chf, cellulitis L lower extremity, bilateral pleural effusion. Other hx: Chronic respiratory failure, home O2 at 2L/NC, possible mild pulmonary HTN, JOSR but no longer uses her device, lower extremity edema/redness/cellulitis, bilateral heel wounds,pt states she currently has a decubitus on her coccyx, IDDM type II, neuropathy bilateral hands/feet, CKD stage III, pt states she has had "bleeding in the kidneys" in the past, anemia, UTI with sepsis, incontinent of urine and occasionally stool, migraines, gout, hypothyroid, vertigo. History of Any Multi-Drug Resistant Organisms: None Reported Past Surgical History: Heart Catheterization, Hysterectomy, Joint Replacement, Orthopedic Surgery Additional Past Surgical History / Comment(s): L heel debridement with bx, midline, cardiac cath 2017-treated medically, R total knee replacement, L foot heel spur, sanjana cataracts with lens implants, cystoscopy, EGD, colonoscopy. Past Anesthesia/Blood Transfusion Reactions: No Reported Reaction Past Psychological History: No Psychological Hx Reported Additional Psychological History / Comment(s): since 1997. Pt currently at [facility] for rehab. She states she is always in bed d/t bilateral heel wounds. No travel. experience. No animal exposures. stopped smoking several years ago no history of recreational drug use Smoking Status: Former smoker Past Alcohol Use History: None Reported Additional Past Alcohol Use History / Comment(s): Pt started smoking in 1952 and quit in 2013. Past Drug Use History: None Reported - Past Family History Mother Family Medical History: Renal Disease Father Family Medical History: Coronary Artery Disease (CAD) Medications and Allergies Home Medications Medication Instructions Recorded Confirmed Type Potassium Chloride ER [K-Dur 20] 40 meq PO DAILY@0800 03/22/18 09/21/19 History Ubidecarenone [Co Q-10] 200 mg PO DAILY@1700 03/22/18 09/21/19 History Allopurinol [Zyloprim] 300 mg PO DAILY@0800 02/10/19 09/21/19 History Atorvastatin [Lipitor] 40 mg PO HS@2100 02/10/19 09/21/19 History Liothyronine Sodium [Cytomel] 5 mcg PO DAILY@0600 02/10/19 09/21/19 History Levothyroxine Sodium [Synthroid] 88 mcg PO DAILY@0600 07/06/19 09/21/19 History Meclizine [Antivert] 12.5 mg PO TID@0800,1200,1700 07/06/19 09/21/19 History Ipratropium-Albuterol Nebulize 3 ml INHALATION RT-Q4H ml 07/12/19 09/21/19 Rx [Duoneb 0.5 mg-3 mg/3 ml Soln] Benzocaine/Menthol Lozeng [Cepacol 1 lozenge MUCOUS MEM Q6H PRN 07/13/19 09/21/19 History lozenge] Bisacodyl [Dulcolax] 10 mg RECTAL DAILY PRN 07/13/19 09/21/19 History INSULIN LISPRO (humaLOG) [humaLOG] See Protocol SQ ACHS 07/13/19 09/21/19 History Ipratropium-Albuterol Nebulize 3 ml INHALATION RT-Q4H PRN 07/13/19 09/21/19 History [Duoneb 0.5 mg-3 mg/3 ml Soln] Isosorbide Dinitrate 30 mg PO DAILY@0800 07/13/19 09/21/19 History Pierce Packet 1 packet PO BID@0800,1700 07/13/19 09/21/19 History Magnesium Hydroxide [Milk of 7,200 mg PO DAILY PRN 07/13/19 09/21/19 History Magnesia Concentrate] Na Phos,M-B/Na Phos,Di-Ba [Fleet 133 ml RECTAL DAILY PRN 07/13/19 09/21/19 History Adult] guaiFENesin-DM 100-10MG/5ML 10 ml PO Q6H PRN ml 07/19/19 09/21/19 Rx [Robitussin DM] Acetaminophen Tab [Tylenol] 650 mg PO Q4HR PRN 09/21/19 09/21/19 History Docusate [Colace] 100 mg PO DAILY@0800 09/21/19 09/21/19 History Furosemide [Lasix] 40 mg PO DAILY@0800 09/21/19 09/21/19 History Insulin Detemir (Levemir) [Levemir] 30 unit SQ HS@2100 09/21/19 09/21/19 History Lidocaine 5% Oint [Xylocaine 5% 1 applic TOPICAL DAILY PRN 09/21/19 09/21/19 History Oint] Metoprolol Tartrate [Lopressor] 100 mg PO BID@0800,1700 09/21/19 09/21/19 History Pantoprazole Sodium [Protonix] 40 mg PO DAILY@0600 09/21/19 09/21/19 History traMADol HCL [Ultram] 50 mg PO Q8H PRN 09/21/19 09/21/19 History Allergies Allergy/AdvReac Type Severity Reaction Status Date / Time iron Allergy Rash/Hives Verified 09/21/19 13:42 Sulfa (Sulfonamide Allergy Rash/Hives Verified 09/21/19 13:42 Antibiotics) Tetanus Vaccines and Toxoid Allergy Swelling Verified 09/21/19 13:42 Exam Osteopathic Statement: *. No significant issues noted on an osteopathic structural exam other than those noted in the History and Physical/Consult. Vital Signs Temp Pulse Resp BP Pulse Ox 09/22/19 14:35 97.7 F 70 16 102/66 100 09/22/19 08:00 83 17 09/22/19 07:00 97.6 F 83 17 101/71 98 09/22/19 02:36 98.6 F 69 16 100/65 96 09/22/19 00:00 92 09/21/19 19:58 98 F 92 16 112/68 98 Intake and Output 09/22/19 09/22/19 09/22/19 06:59 14:59 22:59 Intake Total 625 Output Total 2000 Balance -1999 625 Intake: Intake, IV Titration 625 Amount Piperacillin-Tazobactam 3 100 .375 gm In Sodium Chloride 0.9% 100 ml @ 25 mls/hr IVPB Q12HR [facility] Rx #:[id number] Sodium Chloride 0.9% 1, 525 000 ml @ 75 mls/hr IV . [id number] [facility] Rx#:[id number] Output: Urine 1999 Other: Voiding Method Indwelling Catheter Weight 101.605 kg Pelvic exam: Patient is wearing a diaper. Upon removing the diaper, there is a small amount of bright red blood with a clot. The patient does have difficulty her legs for evaluation. There is noted to be an area near the clitoral region that appears to be a small area of agglutination versus possible lichen sclerosis. It is difficult to see if this area is actively bleeding or not. A gloved hand is placed in the vagina and no masses are palpated. There is some bright red blood on the glove. Hard stool is palpated through the vagina into the rectum. Rectal exam is not performed. Results Result Diagrams: 09/22/19 11:27 09/22/19 11:27 Abnormal Lab Results - Last 24 Hours (Table) 09/21/19 09/22/19 09/22/19 Range/Units 21:57 06:58 11:27 RDW 15.6 H (11.5-15.5) % BUN (7-17) mg/dL Creatinine (0.52-1.04) mg/dL Glucose (74-99) mg/dL POC Glucose (mg/dL) 183 H 125 H (75-99) mg/dL 09/22/19 09/22/19 09/22/19 Range/Units 11:27 11:33 16:25 RDW (11.5-15.5) % BUN 143 H* (7-17) mg/dL Creatinine 1.69 H (0.52-1.04) mg/dL Glucose 185 H (74-99) mg/dL POC Glucose (mg/dL) 184 H 210 H (75-99) mg/dL Microbiology - Last 24 Hours (Table) 09/21/19 12:57 Blood Culture - Preliminary Blood No Growth after 24 hours 09/21/19 12:45 Urine Culture - Preliminary Urine,Voided Assessment and Plan (1) Bleeding from the genitourinary system Current Visit: Yes Status: Acute Code(s): R31.9 - HEMATURIA, UNSPECIFIED SNOMED Code(s): 633878556 Plan: It is unclear if the bleeding is due to a small cut in the skin versus trauma in the area of her catheter insertion. Since she does not have a uterus and no masses are palpated in the vagina, I doubt this is anything related to GAS CHARGER malignancy. There is still the possibility that this may be coming from the rectal area, however I do not see anything active from the rectal region on exam. I would suggest placing some a and D ointment or Vaseline over the area that appears to be excoriated in the clitoral region. This may help to heal any small cut. Better visualization may be carried out with nursing staff during marivel-care and after the blood is cleared out of the way to better visualize where it may be coming from.
--- NOTE | 2019-09-22 17:40 | CONS ---
CONSULTATION Patient is an 79-year-old female with history of chronic kidney disease NKF stage 4 with baseline creatinine about 1.6 to 1.5 mg/dL. She was admitted to the hospital from [facility] with a history of decreased mentation. The patient apparently also had significant vaginal bleeding. It was clear that it was not GI bleed. The patient was noted to have a BUN of 187, serum creatinine was 2.19. She has an indwelling Hayes catheter, which is chronic and patient currently has good urine output, 24-hour urine output documented at 2 liters. Blood pressure has been on the lower side with systolic around 102 to 101 mmHg. The patient was on small dose of oral diuretics in the form of 40 mg of p.o. Lasix prior to admission. Her hemoglobin is 14.2 and, again, there is no obvious GI bleed. PAST MEDICAL HISTORY: CKD stage 4 secondary to nephrosclerosis with previous episodes of acute kidney injury, patient has not followed up as outpatient since 2018. She also has a history of atrial fibrillation, COPD, type 2 diabetes, DVT, hypertension, gastroesophageal reflux disease, pneumonia, history of rheumatoid arthritis, pleural effusions, lower extremity cellulitis, hypothyroidism, vertigo, migraines, obstructive sleep apnea. PAST SURGICAL HISTORY: Cardiac catheterization, hysterectomy, left heel debridement, right total knee arthroplasty, left heel spur, bilateral cataract surgeries, EGD, cystoscopy, colonoscopy. SOCIAL HISTORY: Negative for smoking, drug abuse, or alcohol abuse. MEDICATIONS: Medications prior to admission included potassium, CoQ10, Zyloprim, Lipitor, Cytomel, Synthroid, Antivert, Dulcolax, Cepacol, insulin, Fleet enemas, Lasix, Colace, lopressor, Protonix, ultram, albuterol. ALLERGIES: SULFA, IRON, TETANUS TOXOID. REVIEW OF SYSTEMS: As per HPI, other systems negative. PHYSICAL EXAMINATION: Patient is comfortable, awake, she is not in any acute distress. She is somewhat confused. On examination this morning blood pressure was 101/71, heart rate 83 per minute, she is afebrile. EXAMINATION OF THE HEART: S1 and S2. EXAMINATION OF THE LUNGS: Bilateral breath sounds are heard. Decreased breath sounds at the bases. ABDOMEN: Soft, morbidly obese. Examination of the extremities shows chronic skin changes, edema 1+ bilaterally. MAIL TELLER exam is grossly intact. The patient is moving all four extremities. LABS: Labs are not available from today. On 09/21/2019, sodium 136, potassium 4.3, BUN 187, creatinine 2.19, calcium 10.5. UA shows WBC is more than 182, WBC clumps were noted. Coronavirus was negative. ASSESSMENT: 1. Chronic kidney disease stage 4 secondary to nephrosclerosis, currently with indwelling Hayes catheter. Baseline creatinine about 1.5 to 1.6 mg/dL as of August 2019. 2. Disproportionately-elevated BUN, rule out underlying gastrointestinal bleed, although there is no actual gastrointestinal bleed noted. The patient has been having vaginal bleeding. I am not sure if she has had internal uterine bleeding for some time. She is currently not on any steroids to contribute to the disproportionately-elevated BUN as well. I will repeat labs today. Continue with IV fluids for now. 3. Pyuria in a patient with chronic indwelling Hayes catheter, started on empiric antibiotics. Urine culture is pending. 4. Hypothyroidism. 5. Vaginal bleeding, status post pelvic and transvaginal ultrasound. PLAN: Check labs today. Continue IV fluids. Continue with Hayes catheter. Check stool for occult blood as well. Thank you for this consultation. We will continue to follow the patient with you during hospitalization. MMODL / IJN: [id number] /
[2019-09-22 20:09] LABS: Glucose,Whole Blood 195 mg/dL (75-99)
[2019-09-22] MEDS: INSULIN DETEMIR (LEVEMIR) 100 UNIT/ML SYR SQ SCH (20:38)
--- NOTE | 2019-09-22 22:59 | P.HPIM ---
History of Present Illness H&P Date: 09/22/19 Chief Complaint: vaginal bleeding, weakness Tamar Dominguez is an 79 yo F with PMH of systolic CHF, COPD, a fib, T2DM, CKD4, hx DVT, lymphedema who presented to the ED from half-way after staff noticed pt to be increasingly weak with vaginal bleeding. Over the past few days pt apparently more lethargic, confused, and weak with vaginal bleeding noted by staff. There was concern for cough as well but pt denies any respiratory symptoms today. Pt was last admitted about 2 months ago for CHF exacerbation and has been at her baseline since then, she does report infrequent bowel movement over the past several weeks. She denies any nausea, vomiting, fever or chills. In the ED her vitals were stable, WBC 11k, BUN 1187 Cr 2. CXR with small RLL infiltrate. Covid and flu negative. Review of Systems All systems: negative Constitutional: Reports fatigue, Reports malaise, Reports weakness, Denies chills, Denies fever Eyes: denies blurred vision, denies pain Ears, nose, mouth and throat: Denies headache, Denies sore throat Cardiovascular: Denies chest pain, Denies shortness of breath Respiratory: Denies cough Gastrointestinal: Denies abdominal pain, Denies diarrhea, Denies nausea, Denies vomiting Genitourinary: Denies dysuria, Denies hematuria Musculoskeletal: Denies myalgias Integumentary: Denies pruritus, Denies rash Neurological: Reports confusion, Reports weakness, Denies numbness Psychiatric: Denies anxiety, Denies depression Endocrine: Denies fatigue, Denies weight change Past Medical History Past Medical History: Atrial Fibrillation, Heart Failure, COPD, Diabetes Mellitus, Deep Vein Thrombosis (DVT), GERD/Reflux, Hyperlipidemia, Hypertension, Osteoarthritis (OA), Pneumonia, Renal Disease, Respiratory Disorder, Rheumatoid Arthritis (RA), Sleep Apnea/CPAP/BIPAP, Thyroid Disorder Additional Past Medical History / Comment(s): Pt recently admitted to [facility] on 07/06/19 with pressure injury bilateral heels/gangrene, acute on chronic chf, cellulitis L lower extremity, bilateral pleural effusion. Other hx: Chronic respiratory failure, home O2 at 2L/NC, possible mild pulmonary HTN, JOSR but no longer uses her device, lower extremity edema/redness/cellulitis, bilateral heel wounds,pt states she currently has a decubitus on her coccyx, IDDM type II, neuropathy bilateral hands/feet, CKD stage III, pt states she has had "bleeding in the kidneys" in the past, anemia, UTI with sepsis, incontinent of urine and occasionally stool, migraines, gout, hypothyroid, vertigo. History of Any Multi-Drug Resistant Organisms: None Reported Past Surgical History: Heart Catheterization, Hysterectomy, Joint Replacement, Orthopedic Surgery Additional Past Surgical History / Comment(s): L heel debridement with bx, midline, cardiac cath 2017-treated medically, R total knee replacement, L foot heel spur, sanjana cataracts with lens implants, cystoscopy, EGD, colonoscopy. Past Anesthesia/Blood Transfusion Reactions: No Reported Reaction Past Psychological History: No Psychological Hx Reported Additional Psychological History / Comment(s): since 1997. Pt currently at [facility] for rehab. She states she is always in bed d/t bilateral heel wounds. No travel. experience. No animal exposures. stopped smoking several years ago no history of recreational drug use Smoking Status: Former smoker Past Alcohol Use History: None Reported Additional Past Alcohol Use History / Comment(s): Pt started smoking in 1952 and quit in 2013. Past Drug Use History: None Reported - Past Family History Mother Family Medical History: Renal Disease Father Family Medical History: Coronary Artery Disease (CAD) Medications and Allergies Home Medications Medication Instructions Recorded Confirmed Type Potassium Chloride ER [K-Dur 20] 40 meq PO DAILY@0800 03/22/18 09/21/19 History Ubidecarenone [Co Q-10] 200 mg PO DAILY@1700 03/22/18 09/21/19 History Allopurinol [Zyloprim] 300 mg PO DAILY@0802/10/19 09/21/19 History Atorvastatin [Lipitor] 40 mg PO HS@2100 02/10/19 09/21/19 History Liothyronine Sodium [Cytomel] 5 mcg PO DAILY@59902/10/19 09/21/19 History Levothyroxine Sodium [Synthroid] 88 mcg PO DAILY@0600 07/06/19 09/21/19 History Meclizine [Antivert] 12.5 mg PO TID@0800,1200,1700 07/06/19 09/21/19 History Ipratropium-Albuterol Nebulize 3 ml INHALATION RT-Q4H ml 07/12/19 09/21/19 Rx [Duoneb 0.5 mg-3 mg/3 ml Soln] Benzocaine/Menthol Lozeng [Cepacol 1 lozenge MUCOUS MEM Q6H PRN 07/13/19 09/21/19 History lozenge] Bisacodyl [Dulcolax] 10 mg RECTAL DAILY PRN 07/13/19 09/21/19 History INSULIN LISPRO (humaLOG) [humaLOG] See Protocol SQ ACHS 07/13/19 09/21/19 History Ipratropium-Albuterol Nebulize 3 ml INHALATION RT-Q4H PRN 07/13/19 09/21/19 History [Duoneb 0.5 mg-3 mg/3 ml Soln] Isosorbide Dinitrate 30 mg PO DAILY@0800 07/13/19 09/21/19 History Pierce Packet 1 packet PO BID@0800,1700 07/13/19 09/21/19 History Magnesium Hydroxide [Milk of 7,200 mg PO DAILY PRN 07/13/19 09/21/19 History Magnesia Concentrate] Na Phos,M-B/Na Phos,Di-Ba [Fleet 133 ml RECTAL DAILY PRN 07/13/19 09/21/19 Hist ory Adult] guaiFENesin-DM 100-10MG/5ML 10 ml PO Q6H PRN ml 07/19/19 09/21/19 Rx [Robitussin DM] Acetaminophen Tab [Tylenol] 650 mg PO Q4HR PRN 09/21/19 09/21/19 History Docusate [Colace] 100 mg PO DAILY@0800 09/21/19 09/21/19 History Furosemide [Lasix] 40 mg PO DAILY@0800 09/21/19 09/21/19 History Insulin Detemir (Levemir) [Levemir] 30 unit SQ HS@2100 09/21/19 09/21/19 History Lidocaine 5% Oint [Xylocaine 5% 1 applic TOPICAL DAILY PRN 09/21/19 09/21/19 History Oint] Metoprolol Tartrate [Lopressor] 100 mg PO BID@0800,1700 09/21/19 09/21/19 History Pantoprazole Sodium [Protonix] 40 mg PO DAILY@0600 09/21/19 09/21/19 History traMADol HCL [Ultram] 50 mg PO Q8H PRN 09/21/19 09/21/19 History Allergies Allergy/AdvReac Type Severity Reaction Status Date / Time iron Allergy Rash/Hives Verified 09/21/19 13:42 Sulfa (Sulfonamide Allergy Rash/Hives Verified 09/21/19 13:42 Antibiotics) Tetanus Vaccines and Toxoid Allergy Swelling Verified 09/21/19 13:42 Physical Exam Vitals: Vital Signs Temp Pulse Resp BP Pulse Ox 09/22/19 19:15 97.6 F 78 101/69 97 09/22/19 14:35 97.7 F 70 16 102/66 100 09/22/19 08:00 83 17 09/22/19 07:00 97.6 F 83 17 101/71 98 09/22/19 02:36 98.6 F 69 16 100/65 96 09/22/19 00:00 92 Intake and Output 09/22/19 09/22/19 09/22/19 06:59 14:59 22:59 Intake Total 625 120 Output Total 1999 700 Balance -1999 625 -580 Intake: Intake, IV Titration 625 Amount Piperacillin-Tazobactam 3 100 .375 gm In Sodium Chloride 0.9% 100 ml @ 25 mls/hr IVPB Q12HR [facility] Rx #:[id number] Sodium Chloride 0.9% 1, 525 000 ml @ 75 mls/hr IV . [id number] [facility] Rx#:[id number] Oral 120 Output: Urine 1999 Other: Voiding Method Indwelling Catheter Weight 101.605 kg General: well nourished, well developed, NAD. Vitals reviewed Eyes: PERRL, EOMI, conjunctiva normal HENT: normocephalic, mucus membranes moist Neck: supple, no JVD Lungs: normal respiratory effort, no wheezes or rales CV: Irregular, no murmur. Peripheral pulses 2+ Abdomen: soft, nondistended, no organomegaly. Tenderness LLQ Lymph: no cervical or axillary LAD Skin: warm and dry. Bilateral LE with 2+ edema, venous stasis dermatitis Neuro: A&Ox3, normal mood and affect Results CBC & Chem 7: 09/22/19 11:27 09/22/19 11:27 Labs: Abnormal Lab Results - Last 24 Hours (Table) 09/22/19 09/22/19 09/22/19 Range/Units 06:58 11:27 11:27 RDW 15.6 H (11.5-15.5) % BUN 143 H* (7-17) mg/dL Creatinine 1.69 H (0.52-1.04) mg/dL Glucose 185 H (74-99) mg/dL POC Glucose (mg/dL) 125 H (75-99) mg/dL 09/22/19 09/22/19 09/22/19 Range/Units 11:33 16:25 20:08 RDW (11.5-15.5) % BUN (7-17) mg/dL Creatinine (0.52-1.04) mg/dL Glucose (74-99) mg/dL POC Glucose (mg/dL) 184 H 210 H 195 H (75-99) mg/dL Microbiology - Last 24 Hours (Table) 09/21/19 12:57 Blood Culture - Preliminary Blood No Growth after 24 hours 09/21/19 12:45 Urine Culture - Preliminary Urine,Voided Thrombosis Risk Factor Assmnt - Choose All That Apply Any of the Below Risk Factors Present?: Yes Each Factor Represents 1 point: Swollen legs (current) Other Risk Factors: Yes Each Risk Factor Represents 2 Points: Patient confined to bed Each Risk Factor Represents 3 Points: Age 75 years or older Other congenital or acquired thrombophilia - If yes, enter type in comment: Yes Thrombosis Risk Factor Assessment Total Risk Factor Score: 6 Thrombosis Risk Factor Assessment Level: High Risk Assessment and Plan (1) Chronic kidney disease, stage 4 (severe) Current Visit: Yes Status: Acute Code(s): N18.4 - CHRONIC KIDNEY DISEASE, STAGE 4 (SEVERE) SNOMED Code(s): 028988394 (2) Acute kidney injury Current Visit: Yes Status: Acute Code(s): N17.9 - ACUTE KIDNEY FAILURE, UNSPECIFIED SNOMED Code(s): 08411203 (3) Bleeding from the genitourinary system Current Visit: Yes Status: Acute Code(s): R31.9 - HEMATURIA, UNSPECIFIED SNOMED Code(s): 842201884 (4) Right lower lobe pneumonia Current Visit: Yes Status: Acute Code(s): J18.9 - PNEUMONIA, UNSPECIFIED ORGANISM SNOMED Code(s): 034975155 (5) Acute on chronic diastolic (congestive) heart failure Current Visit: No Status: Acute Code(s): I50.33 - ACUTE ON CHRONIC DIASTOLIC (CONGESTIVE) HEART FAILURE SNOMED Code(s): 342684856 (6) Cellulitis of left lower extremity Current Visit: No Status: Acute Code(s): L03.116 - CELLULITIS OF LEFT LOWER LIMB SNOMED Code(s): 794817462 Plan: 1. Community acquired pneumonia. Given rocephin in the ED. continue zosyn, levaquin, nebulizer treatments 2. Vaginal bleeding. Transvaginal US to further eval, ENGINEERING CONSULTANT consult 3. LLQ pain. Secondary to constipation vs enteritis. Covered with zosyn, proceed with fleet enema 4. CORY on CKD stage 4, nephrology consult, hold lasix. IV fluids 5. CAD 6. T2DM. continue insulin, accucheck, sliding scale
[2019-09-23] MEDS: PANTOPRAZOLE 40 MG TABLET PO SCH (05:24)
[2019-09-23] MEDS: LEVOTHYROXINE 88 MCG TAB PO SCH (05:24)
[2019-09-23] MEDS: LIOTHYRONINE SODIUM 5 MCG TAB PO SCH (05:24)
[2019-09-23 06:50] LABS: Glucose,Whole Blood 150 mg/dL (75-99)
[2019-09-23] MEDS: ALBUTEROL HFA INHALER INHALATION SCH ×4 (07:45→19:53)
[2019-09-23] MEDS: TIOTROPIUM 18 MCG/PUFF INHALER INHALATION SCH (07:46)
[2019-09-23] MEDS: DOCUSATE 100 MG CAP PO SCH (08:13)
[2019-09-23] MEDS: PIPERACILLIN-TAZOBACTAM 3.375 GM in SODIUM CHLORIDE 0.9% 100 ML IVPB SCH ×2 (08:13→16:42)
[2019-09-23] MEDS: ISOSORBIDE DINITRATE 10 MG TAB PO SCH (08:13)
[2019-09-23] MEDS: MECLIZINE 12.5 MG TAB PO SCH ×3 (08:13→16:41)
[2019-09-23] MEDS: INSULIN ASPART (NovoLOG) 100 UNIT/ML VIAL SQ SCH ×4 (08:13→21:33)
[2019-09-23] MEDS: SODIUM CHLORIDE 0.9% 1,000 ML IV SCH (08:14)
[2019-09-23] MEDS: METOPROLOL TARTRATE 50 MG TAB PO SCH ×2 (08:14→16:37)
[2019-09-23 08:55] LABS: Calcium 9.8 mg/dL (8.4-10.2); Potassium 3.6 mmol/L (3.5-5.1)
[2019-09-23] MEDS ORDERED: LEVOFLOXACIN 500 MG TAB PO SCH (09:00)
--- NOTE | 2019-09-23 11:11 | P.PN ---
Subjective Progress Note Date: 09/23/19 Tamar Dominguez is an 79 yo F with PMH of systolic CHF, COPD, a fib, T2DM, CKD4, hx DVT, lymphedema who [facility] after staff noticed pt to be increasingly weak with vaginal bleeding. Over the past few days pt apparently more lethargic, confused, and weak with vaginal bleeding noted by staff. There was concern for cough as well but pt denies any respiratory symptoms today. Pt was last admitted about 2 months ago for CHF exacerbation and has been at her baseline since then, she does report infrequent bowel movement over the past several weeks. She denies any nausea, vomiting, fever or chills. In the ED her vitals were stable, WBC 11k, BUN 1187 Cr 2. CXR with small RLL infiltrate. Covid and flu negative. 09/23/2019 maintained on IV antibiotics and gentle IV fluid hydration with significant clinical improvement. Urine cultures reporting gram-negative bacilli .Afebrile. Renal function improving. Evaluated by JOURNEYMAN MOLDER, bleeding attributed to probably skin cut/tear/trauma from chronic Hayes catheter. Denies abdominal pain. Denies chest pain, palpitations or increased shortness of breath. Objective - Vital Signs Vital signs: Vital Signs Temp 97.7 F 09/23/19 07:00 Pulse 80 09/23/19 07:00 Resp 16 09/23/19 07:00 BP 94/59 09/23/19 07:00 Pulse Ox 94 L 09/23/19 07:00 Intake & Output 09/22/19 09/23/19 09/23/19 18:59 06:59 18:59 Intake Total 745 1400 Output Total 700 1200 Balance 45 200 Weight 101.605 kg Intake: Intake, IV Titration 625 1400 Amount Piperacillin-Tazobactam 3 100 200 .375 gm In Sodium Chloride 0.9% 100 ml @ 25 mls/hr IVPB Q12HR ANATOLY Rx #:[id number] Sodium Chloride 0.9% 1, 1200 000 ml @ 100 mls/hr IV . Q10H ANATOLY Rx#:[id number] Sodium Chloride 0.9% 1, 525 000 ml @ 75 mls/hr IV . [id number] STA Rx#:[id number] Oral 120 Output: Urine 700 1200 Other: Voiding Method Indwelling Catheter Indwelling Catheter - Exam General: well nourished, well developed, NAD. Vitals reviewed Eyes: PERRL, EOMI, conjunctiva normal. HENT: normocephalic, oral mucosa moist Neck: supple, no JVD Lungs: normal respiratory effort, essentially clear, no wheezes or rales CV: Irregular, no murmur. Peripheral pulses 2+ Abdomen: soft, nondistended, no organomegaly. Minimal Tenderness LLQ upon palpation Skin: warm and dry. Bilateral LE with trace edema, venous stasis dermatitis, wearing offloading bilateral boots Neuro: A&Ox3, normal mood and affect - Labs CBC & Chem 7: 09/22/19 11:27 09/23/19 06:55 Labs: Abnormal Lab Results - Last 24 Hours (Table) 09/22/19 09/22/19 09/22/19 Range/Units 11:27 11:27 11:33 RDW 15.6 H (11.5-15.5) % BUN 143 H* (7-17) mg/dL Creatinine 1.69 H (0.52-1.04) mg/dL Glucose 185 H (74-99) mg/dL POC Glucose (mg/dL) 184 H (75-99) mg/dL 09/22/19 09/22/19 09/23/19 Range/Units 16:25 20:08 06:48 RDW (11.5-15.5) % BUN (7-17) mg/dL Creatinine (0.52-1.04) mg/dL Glucose (74-99) mg/dL POC Glucose (mg/dL) 210 H 195 H 150 H (75-99) mg/dL Microbiology - Last 24 Hours (Table) 09/21/19 12:45 Urine Culture - Preliminary Urine,Voided Gram Neg Bacilli 09/21/19 12:57 Blood Culture - Preliminary Blood No Growth after 24 hours Assessment and Plan Assessment: -acute right lower lobe community acquired pneumonia. Coronavirus not detected. Current Visit: Yes Status: Acute Code(s): J18.9 - PNEUMONIA, UNSPECIFIED ORGANISM SNOMED Code(s): 612203036 -Bleeding from the genitourinary system, JOURNEYMAN MOLDER following; doubt malignancy, suspect skin cut, try, in the area of her catheter insertion -Chronic kidney disease, stage 4 (severe) Current Visit: Yes Status: Acute Code(s): N18.4 - CHRONIC KIDNEY DISEASE, STAGE 4 (SEVERE) SNOMED Code(s): 082120110 -Acute kidney renal failure, Baseline creatinine 1.5-1.6. Current Visit: Yes Status: Acute Code(s): N17.9 - ACUTE KIDNEY FAILURE, UNSPECIFIED SNOMED Code(s): 97043465 -Bleeding from the genitourinary system Current Visit: Yes Status: Acute Code(s): R31.9 - HEMATURIA, UNSPECIFIED SNOMED Code(s): 625346211 -Acute on chronic diastolic (congestive) heart failure Current Visit: No Status: Acute Code(s): I50.33 - ACUTE ON CHRONIC DIASTOLIC (CONGESTIVE) HEART FAILURE SNOMED Code(s): 897456071 -Cellulitis of left lower extremity, improved Current Visit: No Status: Acute Code(s): L03.116 - CELLULITIS OF LEFT LOWER LIMB SNOMED Code(s): 991760622 - left lower quadrant pain, secondary to constipation versus enteritis ,nearly resolved -CAD -Diabetes mellitus Plan: Continue on current medication regime ,monitoring and symptomatic treatment. Diuretics remain on hold .Maintain gentle IV fluid hydration, antibiotics, nebulized bronchodilators. Close monitoring of renal function and final urine culture .repeat labs ordered for a.m. JOURNEYMAN MOLDER recommendations noted and appreciated. Vaseline or a and D ointment to affected area as recommended per JOURNEYMAN MOLDER. CBC pending. Pulmonary consult in place. Discharge planning in progress for return to [facility] tomorrow. The impression and plan of care has been dictated as directed. : I performed a history and examination of this patient, discussed the same with the dictator. I agree with the dictator's note ,documented as a scribe. Any additional findings or plans will be noted.
[2019-09-23 11:14] LABS: HCT 38.8 % (34.0-46.0); HGB 12.5 gm/dL (11.4-16.0); MCHC 32.2 g/dL (31.0-37.0); MCV 92.9 fL (80.0-100.0); Mean Platelet Volume 10.9; Platelet Count 156 k/uL (150-450); RBC 4.18 m/uL (3.80-5.40); RDW 15.8 % (11.5-15.5); WBC 9.2 k/uL (3.8-10.6)
[2019-09-23 11:38] LABS: Glucose,Whole Blood 203 mg/dL (75-99)
--- NOTE | 2019-09-23 15:06 | P.CNPUL ---
History of Present Illness Consult date: 09/23/19 Reason for consult: dyspnea, cough Chief complaint: Generalized weakness, pneumonia History of present illness: This is a 79-year-old female with bilateral lower extremity cellulitis has significant history of chronic systolic heart failure severe COPD chronic atrial fibrillation type 2 diabetes mellitus stage IV chronic renal failure also has a history of DVT patient has chronic lymphedema she was brought into the hospital with generalized progressive weakness as well as vaginal bleeding she has some cough shortness of breath however subsequently improved patient currently denies it the chest x-ray shows right lower lobe pneumonia however herCOVID and flu have been negative, patient is being treated with bronchodilators with Zosyn and Levaquin, I urine culture have been positive for gram-negative bacilli Review of Systems All systems: negative Past Medical History Past Medical History: Atrial Fibrillation, Heart Failure, COPD, Diabetes Mellitus, Deep Vein Thrombosis (DVT), GERD/Reflux, Hyperlipidemia, Hypertension, Osteoarthritis (OA), Pneumonia, Renal Disease, Respiratory Disorder, Rheumatoid Arthritis (RA), Sleep Apnea/CPAP/BIPAP, Thyroid Disorder Additional Past Medical History / Comment(s): Pt recently admitted to [facility] on 07/06/19 with pressure injury bilateral heels/gangrene, acute on chronic chf, cellulitis L lower extremity, bilateral pleural effusion. Other hx: Chronic respiratory failure, home O2 at 2L/NC, possible mild pulmonary HTN, JOSR but no longer uses her device, lower extremity edema/redness/cellulitis, bilateral heel wounds,pt states she currently has a decubitus on her coccyx, IDDM type II, neuropathy bilateral hands/feet, CKD stage III, pt states she has had "bleeding in the kidneys" in the past, anemia, UTI with sepsis, incontinent of urine and occasionally stool, migraines, gout, hypothyroid, vertigo. History of Any Multi-Drug Resistant Organisms: None Reported Past Surgical History: Heart Catheterization, Hysterectomy, Joint Replacement, Orthopedic Surgery Additional Past Surgical History / Comment(s): L heel debridement with bx, midline, cardiac cath 2017-treated medically, R total knee replacement, L foot heel spur, sanjana cataracts with lens implants, cystoscopy, EGD, colonoscopy. Past Anesthesia/Blood Transfusion Reactions: No Reported Reaction Past Psychological History: No Psychological Hx Reported Additional Psychological History / Comment(s): since 1997. Pt currently at [facility] for rehab. She states she is always in bed d/t bilateral heel wounds. No travel. experience. No animal exposures. stopped smoking several years ago no history of recreational drug use Smoking Status: Former smoker Past Alcohol Use History: None Reported Additional Past Alcohol Use History / Comment(s): Pt started smoking in 1953 and quit in 2013. Past Drug Use History: None Reported - Past Family History Mother Family Medical History: Renal Disease Father Family Medical History: Coronary Artery Disease (CAD) Medications and Allergies Home Medications Medication Instructions Recorded Confirmed Type Potassium Chloride ER [K-Dur 20] 40 meq PO DAILY@0800 03/22/18 09/21/19 History Ubidecarenone [Co Q-10] 200 mg PO DAILY@1700 03/22/18 09/21/19 History Allopurinol [Zyloprim] 300 mg PO DAILY@0802/10/19 09/21/19 History Atorvastatin [Lipitor] 40 mg PO HS@2100 02/10/19 09/21/19 History Liothyronine Sodium [Cytomel] 5 mcg PO DAILY@0602/10/19 09/21/19 History Levothyroxine Sodium [Synthroid] 88 mcg PO DAILY@0600 07/06/19 09/21/19 History Meclizine [Antivert] 12.5 mg PO TID@0800,1200,1700 07/06/19 09/21/19 History Ipratropium-Albuterol Nebulize 3 ml INHALATION RT-Q4H ml 07/12/19 09/21/19 Rx [Duoneb 0.5 mg-3 mg/3 ml Soln] Benzocaine/Menthol Lozeng [Cepacol 1 lozenge MUCOUS MEM Q6H PRN 07/13/19 09/21/19 History lozenge] Bisacodyl [Dulcolax] 10 mg RECTAL DAILY PRN 07/13/19 09/21/19 History INSULIN LISPRO (humaLOG) [humaLOG] See Protocol SQ ACHS 07/13/19 09/21/19 History Ipratropium-Albuterol Nebulize 3 ml INHALATION RT-Q4H PRN 07/13/19 09/21/19 History [Duoneb 0.5 mg-3 mg/3 ml Soln] Isosorbide Dinitrate 30 mg PO DAILY@0800 07/13/19 09/21/19 History Pierce Packet 1 packet PO BID@0800,1700 07/13/19 09/21/19 History Magnesium Hydroxide [Milk of 7,200 mg PO DAILY PRN 07/13/19 09/21/19 History Magnesia Concentrate] Na Phos,M-B/Na Phos,Di-Ba [Fleet 133 ml RECTAL DAILY PRN 07/13/19 09/21/19 History Adult] guaiFENesin-DM 100-10MG/5ML 10 ml PO Q6H PRN ml 07/19/19 09/21/19 Rx [Robitussin DM] Acetaminophen Tab [Tylenol] 650 mg PO Q4HR PRN 09/21/19 09/21/19 History Docusate [Colace] 100 mg PO DAILY@0800 09/21/19 09/21/19 History Furosemide [Lasix] 40 mg PO DAILY@0800 09/21/19 09/21/19 History Insulin Detemir (Levemir) [Levemir] 30 unit SQ HS@2100 09/21/19 09/21/19 History Lidocaine 5% Oint [Xylocaine 5% 1 applic TOPICAL DAILY PRN 09/21/19 09/21/19 History Oint] Metoprolol Tartrate [Lopressor] 100 mg PO BID@0800,1700 09/21/19 09/21/19 His tory Pantoprazole Sodium [Protonix] 40 mg PO DAILY@0600 09/21/19 09/21/19 History traMADol HCL [Ultram] 50 mg PO Q8H PRN 09/21/19 09/21/19 History Allergies Allergy/AdvReac Type Severity Reaction Status Date / Time iron Allergy Rash/Hives Verified 09/21/19 13:42 Sulfa (Sulfonamide Allergy Rash/Hives Verified 09/21/19 13:42 Antibiotics) Tetanus Vaccines and Toxoid Allergy Swelling Verified 09/21/19 13:42 Physical Exam Vitals: Vital Signs Temp Pulse Resp BP Pulse Ox 09/23/19 08:00 80 16 09/23/19 07:00 97.7 F 80 16 94/59 94 L 09/23/19 04:00 20 09/23/19 03:05 97.8 F 68 102/65 99 09/22/19 23:14 20 04/09/20 20:00 18 09/22/19 19:15 97.6 F 78 101/69 97 Intake and Output 09/22/19 09/23/19 09/23/19 22:59 06:59 14:59 Intake Total 795 395 6698 Output Total 700 1200 Balance 120 -500 1080 Intake: Intake, IV Titration 700 700 500 Amount Piperacillin-Tazobactam 3 100 100 .375 gm In Sodium Chloride 0.9% 100 ml @ 25 mls/hr IVPB Q12HR ANATOLY Rx #:[id number] Piperacillin-Tazobactam 3 100 .375 gm In Sodium Chloride 0.9% 100 ml @ 25 mls/hr IVPB Q8HR ANATOLY Rx# :[id number] Sodium Chloride 0.9% 1, 600 600 400 000 ml @ 100 mls/hr IV . Q10H ANATOLY Rx#:[id number] Oral 120 580 Output: Urine 700 1200 Other: Voiding Method Indwelling Catheter Indwelling Catheter Indwelling Catheter # Voids 3 Weight 101.605 kg General: well nourished, well developed, NAD. Vitals reviewed Eyes: PERRL, EOMI, conjunctiva normal. HENT: normocephalic, oral mucosa moist Neck: supple, no JVD Lungs: normal respiratory effort, essentially clear, no wheezes or rales CV: Irregular, no murmur. Peripheral pulses 2+ Abdomen: soft, nondistended, no organomegaly. Minimal Tenderness LLQ upon palpation Skin: warm and dry. Bilateral LE with trace edema, venous stasis dermatitis, wearing offloading bilateral boots Neuro: A&Ox3, normal mood and affect Results - Laboratory Findings CBC and BMP: 09/23/19 06:55 09/23/19 06:55 Abnormal lab findings: Abnormal Labs 09/21/19 09/21/19 09/21/19 12:45 12:45 12:45 WBC 11.6 H RDW 15.8 H Neutrophils # 7.9 H Sodium 136 L Chloride 94 L Carbon Dioxide 32 H BUN 187 H* Creatinine 2.19 H Glucose 161 H POC Glucose (mg/dL) Calcium 10.5 H Magnesium 2.4 H Creatine Kinase <20 L Urine Appearance Cloudy H Urine Protein Trace H Urine Blood Small H Urine Nitrite Positive H Ur Leukocyte Esterase Large H Urine RBC 16 H Urine WBC >182 H Urine WBC Clumps Many H Urine Bacteria Many H Urine Mucus Rare H 09/21/19 09/21/19 09/22/19 16:57 21:57 06:58 WBC RDW Neutrophils # Sodium Chloride Carbon Dioxide BUN Creatinine Glucose POC Glucose (mg/dL) 157 H 183 H 125 H Calcium Magnesium Creatine Kinase Urine Appearance Urine Protein Urine Blood Urine Nitrite Ur Leukocyte Esterase Urine RBC Urine WBC Urine WBC Clumps Urine Bacteria Urine Mucus 09/22/19 09/22/19 09/22/19 11:27 11:27 11:33 WBC RDW 15.6 H Neutrophils # Sodium Chloride Carbon Dioxide BUN 143 H* Creatinine 1.69 H Glucose 185 H POC Glucose (mg/dL) 184 H Calcium Magnesium Creatine Kinase Urine Appearance Urine Protein Urine Blood Urine Nitrite Ur Leukocyte Esterase Urine RBC Urine WBC Urine WBC Clumps Urine Bacteria Urine Mucus 09/22/19 09/22/19 09/23/19 16:25 20:08 06:48 WBC RDW Neutrophils # Sodium Chloride Carbon Dioxide BUN Creatinine Glucose POC Glucose (mg/dL) 210 H 195 H 150 H Calcium Magnesium Creatine Kinase Urine Appearance Urine Protein Urine Blood Urine Nitrite Ur Leukocyte Esterase Urine RBC Urine WBC Urine WBC Clumps Urine Bacteria Urine Mucus 09/23/19 09/23/19 09/23/19 06:55 06:55 11:37 WBC RDW 15.8 H Neutrophils # Sodium Chloride Carbon Dioxide BUN 117 H* Creatinine 1.41 H Glucose 125 H POC Glucose (mg/dL) 203 H Calcium Magnesium Creatine Kinase Urine Appearance Urine Protein Urine Blood Urine Nitrite Ur Leukocyte Esterase Urine RBC Urine WBC Urine WBC Clumps Urine Bacteria Urine Mucus - Diagnostic Findings Chest x-ray: report reviewed, image reviewed (Finding as noted above) Assessment and Plan Assessment: Generalized weakness and altered mental status secondary due to sepsis Sepsis due to urinary tract infection with gram-negative bacilli Gram-negative urinary tract infection Right-sided pneumonia Morbid obesity Chronic stage IV renal failure Vaginal bleeding of unclear etiology Chronic cellulitis of the lower extremity Plan: Continue antibiotics however after culture of urine can be simplified to single agent Follow-up x-ray in 4-6 weeks Agree with pulmonary standpoint for discharge in next 48-72 hours Time with Patient: Greater than 30
[2019-09-23 16:40] LABS: Glucose,Whole Blood 167 mg/dL (75-99)
--- NOTE | 2019-09-23 16:59 | PN ---
PROGRESS NOTE Patient is seen for followup for chronic kidney disease and an element of acute kidney injury. Currently patient is maintained on IV fluids. Her renal function has improved with BUN down from 187 on admission to 117 now. Her creatinine is down to 1.4 from 2.19 on initial admission. The patient has a chronic indwelling Hayes catheter with good urine output. She continues to have vaginal bleeding. On examination, blood pressure is 95/59 this morning, heart rate 80 per minute, she is afebrile. Examination of the heart S1, S2. Examination of lungs decreased breath sounds at bases. Abdomen is soft, obese, nontender. Examination of the lower extremities shows chronic skin changes. Trace edema noted. AGRONOMY SUPERVISOR exam grossly intact. LABS: Show sodium 138, potassium 3.6, chloride 103, BUN 117, creatinine 1.4, hemoglobin 12.5 g/dL. ASSESSMENT: 1. Acute kidney injury prerenal, currently improving with IV fluids. 2. Chronic kidney disease stage III secondary to nephrosclerosis. 3. Pyuria with chronic indwelling Hayes catheter. Urine culture was sent out, which is growing Gram-negative bacilli. 4. Hypothyroidism. 5. Vaginal bleeding, status post evaluation by PROPULSION SYSTEMS ENGINEER. PLAN: Continue IV fluids, repeat labs in a.m. MMODL / IJN: [id number] /
[2019-09-23 20:46] LABS: Glucose,Whole Blood 203 mg/dL (75-99)
[2019-09-23] MEDS: INSULIN DETEMIR (LEVEMIR) 100 UNIT/ML SYR SQ SCH (21:33)
[2019-09-24] MEDS: SODIUM CHLORIDE 0.9% 1,000 ML IV SCH ×4 (00:47→19:26)
[2019-09-24] MEDS: PIPERACILLIN-TAZOBACTAM 3.375 GM in SODIUM CHLORIDE 0.9% 100 ML IVPB SCH ×3 (00:47→17:33)
[2019-09-24] MEDS: PANTOPRAZOLE 40 MG TABLET PO SCH (06:23)
[2019-09-24] MEDS: LEVOTHYROXINE 88 MCG TAB PO SCH (06:23)
[2019-09-24] MEDS: LIOTHYRONINE SODIUM 5 MCG TAB PO SCH (06:23)
[2019-09-24 07:01] LABS: Glucose,Whole Blood 131 mg/dL (75-99)
[2019-09-24] MEDS: MECLIZINE 12.5 MG TAB PO SCH ×3 (07:41→17:32)
[2019-09-24] MEDS: METOPROLOL TARTRATE 50 MG TAB PO SCH ×2 (07:42→17:26)
[2019-09-24] MEDS: DOCUSATE 100 MG CAP PO SCH (07:42)
[2019-09-24] MEDS: ISOSORBIDE DINITRATE 10 MG TAB PO SCH (07:42)
[2019-09-24] MEDS: INSULIN ASPART (NovoLOG) 100 UNIT/ML VIAL SQ SCH ×4 (07:43→22:34)
[2019-09-24] MEDS: ALBUTEROL HFA INHALER INHALATION SCH ×4 (08:13→20:32)
[2019-09-24] MEDS: TIOTROPIUM 18 MCG/PUFF INHALER INHALATION SCH (08:15)
[2019-09-24 11:45] LABS: Glucose,Whole Blood 212 mg/dL (75-99)
--- NOTE | 2019-09-24 14:35 | PN ---
PROGRESS NOTE Patient is seen for followup for acute kidney injury, which was mainly prerenal. She is maintained on IV fluids. I do not see any labs from today. Her creatinine had come down to 1.4 from 2.19 on initial admission. The patient is resting comfortably this morning. No significant complaints. PHYSICAL EXAMINATION: Blood pressure was 131/78, heart rate 81 per minute. She is afebrile. EXAMINATION OF THE HEART: S1, S2. EXAMINATION OF THE LUNGS: Decreased breath sounds at bases. Abdomen is soft, nontender. Examination of lower extremities shows no significant edema. LABS: Labs are not available from today. ASSESSMENT: 1. Acute kidney injury prerenal, currently improving. The patient has a chronic indwelling Hayes catheter. 2. Pyuria with urine culture growing Gram-negative bacilli, maintained on antibiotics. 3. Hypothyroidism. 4. Vaginal bleeding, being followed by BAG SEALER. PLAN: Continue IV fluids. Continue antibiotics. Repeat labs in a.m. Encourage increased oral intake. MMODL / IJN: [id number] /
[2019-09-24 15:30] LABS: Basophils % (A) 1 %; Eosinophils # (A) 0.2 k/uL (0-0.7); Eosinophils % (A) 2 %; HCT 36.6 % (34.0-46.0); HGB 11.8 gm/dL (11.4-16.0); Lymphocytes # (A) 1.8 k/uL (1.0-4.8); Lymphocytes % (A) 22 %; MCH 30.2 pg (25.0-35.0); MCHC 32.4 g/dL (31.0-37.0); MCV 93.2 fL (80.0-100.0); Monocytes # (A) 0.5 k/uL (0-1.0); Monocytes % (A) 6 %; Neutrophils # (A) 5.7 k/uL (1.3-7.7); Neutrophils % (A) 68 %; Platelet Count 137 k/uL (150-450); RBC 3.93 m/uL (3.80-5.40); RDW 15.6 % (11.5-15.5); WBC 8.3 k/uL (3.8-10.6)
[2019-09-24 15:31] LABS: Albumin 3.2 g/dL (3.5-5.0); Calcium 9.4 mg/dL (8.4-10.2); Potassium 3.5 mmol/L (3.5-5.1); Total Bilirubin 0.8 mg/dL (0.2-1.3); Total Protein 5.7 g/dL (6.3-8.2)
[2019-09-24 15:32] LABS: INR 1.6 (<1.2); Prothrombin Time 15.9 sec (9.0-12.0)
[2019-09-24 16:50] LABS: Glucose,Whole Blood 202 mg/dL (75-99)
--- NOTE | 2019-09-24 17:14 | PN ---
PROGRESS NOTE DATE OF SERVICE: 09/24/2019 DATE OF SERVICE: This 79-year-old woman who was admitted initially with UTI with possible sepsis also suspected pneumonia. The patient also had a suspected vaginal bleeding. Initially, Dr. Walls saw the patient and OBSTETRICIAN AND GYNAECOLOGIST source of bleeding was doubted at that time and the possibility of skin associated with the Hayes catheter was . Apparently the bleeding stopped, but today the staff noted multiple clots from the vagina at around the urethral area and etiology related to indwelling Hayes catheter was suspected and the patient will be closely monitored. The urine culture is positive for Citrobacter youngae which is sensitive to Levaquin and Zosyn and gram-negative bacilli unknown at this time. Otherwise, the patient also had elevated BUN, creatinine, indicating renal failure as well as elevated blood sugars also. The coronavirus and influenza titers were negative. PAST MEDICAL HISTORY: Reviewed. REVIEW OF SYSTEMS: CARDIOVASCULAR SYSTEM: No angina. RESPIRATORY SYSTEM: As mentioned earlier. GI: As mentioned earlier. : As mentioned earlier. NERVOUS SYSTEM: Diffusely weak. MEDICATIONS: Current medications are reviewed and include: 1. Ventolin 2 puffs q.i.d. p.r.n. 2. Cepacol. 3. Dulcolax. 4. Colace. 5. NovoLog. 6. Levemir. 7. Isordil. 8. Levaquin. 9. Synthroid. 10.Cytomel. 11.Antivert. 12.Lopressor. 13.Protonix. 14.Zosyn. 15.Spiriva. 16.Ultram. PHYSICAL EXAMINATION: The patient is alert and oriented x2. Pulse 81, blood pressure 131/78, respirations 17, temperature 98.5, pulse ox 97% on 3 L. HEENT: Conjunctivae pale. NECK: No jugular venous distention. CARDIOVASCULAR: S1, S2 muffled. RESPIRATORY: Breath sounds diminished at the bases. A few scattered rhonchi, no crackles. ABDOMEN: Soft, obese, nontender. LEGS: No edema, no swelling. NERVOUS SYSTEM: Higher function as mentioned. Mild diffuse weakness. LYMPHATICS: No lymphadenopathy of the neck, axillae or groin. SKIN: No ulcer, rash or bleeding. JOINTS: No active deforming arthropathy. LABS: CBC within normal limits. Hemoglobin ntd. Otherwise, creatinine 1.41. ASSESSMENT: 1. Acute urinary tract infection with gram-negative bacilli and Citrobacter youngae infection with possible sepsis, present on admission. 2. Generalized weakness secondary to sepsis. 3. Change in mental status, metabolic encephalopathy secondary to sepsis. 4. Right-sided pneumonia. 5. Possible genitourinary bleeding or vaginal bleeding. 6. Morbid obesity. 7. Chronic cellulitis of the lower extremity. 8. History of atrial fibrillation, chronic. 9. History of congestive heart failure. 10.History of chronic obstructive pulmonary disease. 11.Diabetes mellitus. 12.History of deep venous thrombosis. 13.Hypertension. 14.Hyperlipidemia. 15.History of degenerative joint disease. 16.History of rheumatoid arthritis. 17.History of sleep apnea. 18.History of chronic hypoxic respiratory failure. 19.Obesity with body mass index of 38.4. 20.FULL CODE. RECOMMENDATIONS AND DISCUSSION: This 79-year-old woman who presented with multiple complex medical issues, we will monitor the patient closely. Continue the current medications, continue symptomatic treatment. Otherwise, I recommend to continue the antibiotics and await the final culture report. Otherwise in time because of the bleeding I would also recommend Urology consultation and continue to monitor, stat hemoglobin, CBC, BMP, hold off any antiplatelet agents. The patient is not on any anticoagulants at this time. However, we will get baseline coagulation parameters also. Prognosis guarded because of multiple complex medical issues. Further recommendations to follow. MMODL / IJN: [id number] / MTDBerna
[2019-09-24 20:08] LABS: Glucose,Whole Blood 187 mg/dL (75-99)
[2019-09-24] MEDS: INSULIN DETEMIR (LEVEMIR) 100 UNIT/ML SYR SQ SCH (22:34)
[2019-09-24] MEDS: ATORVASTATIN 40 MG TAB PO SCH (22:35)
[2019-09-25] MEDS: PIPERACILLIN-TAZOBACTAM 3.375 GM in SODIUM CHLORIDE 0.9% 100 ML IVPB SCH ×3 (00:27→17:19)
[2019-09-25] MEDS: SODIUM CHLORIDE 0.9% 1,000 ML IV SCH ×2 (06:04→20:41)
[2019-09-25] MEDS: LIOTHYRONINE SODIUM 5 MCG TAB PO SCH (06:04)
[2019-09-25] MEDS: LEVOTHYROXINE 88 MCG TAB PO SCH (06:04)
[2019-09-25] MEDS: PANTOPRAZOLE 40 MG TABLET PO SCH (06:04)
[2019-09-25 07:17] LABS: Glucose,Whole Blood 109 mg/dL (75-99)
[2019-09-25 07:48] LABS: Basophils # (A) 0.1 k/uL (0-0.2); Basophils % (A) 1 %; Eosinophils # (A) 0.3 k/uL (0-0.7); Eosinophils % (A) 3 %; HCT 35.5 % (34.0-46.0); HGB 11.4 gm/dL (11.4-16.0); Lymphocytes # (A) 2.1 k/uL (1.0-4.8); Lymphocytes % (A) 24 %; MCH 29.9 pg (25.0-35.0); MCHC 32.1 g/dL (31.0-37.0); MCV 93.2 fL (80.0-100.0); Mean Platelet Volume 9.6; Monocytes # (A) 0.5 k/uL (0-1.0); Monocytes % (A) 6 %; Neutrophils # (A) 5.6 k/uL (1.3-7.7); Neutrophils % (A) 64 %; Platelet Count 130 k/uL (150-450); RDW 15.7 % (11.5-15.5); WBC 8.8 k/uL (3.8-10.6)
[2019-09-25 07:52] LABS: Calcium 9.2 mg/dL (8.4-10.2); Potassium 3.4 mmol/L (3.5-5.1)
[2019-09-25] MEDS: ALBUTEROL HFA INHALER INHALATION SCH ×4 (08:25→19:53)
[2019-09-25] MEDS: TIOTROPIUM 18 MCG/PUFF INHALER INHALATION SCH (08:26)
[2019-09-25] MEDS ORDERED: POTASSIUM CHLORIDE ER 20 MEQ TAB.ER PO STA (09:15)
[2019-09-25] MEDS: METOPROLOL TARTRATE 50 MG TAB PO SCH ×2 (09:35→18:46)
[2019-09-25] MEDS: DOCUSATE 100 MG CAP PO SCH (09:36)
[2019-09-25] MEDS: MECLIZINE 12.5 MG TAB PO SCH ×3 (09:36→17:17)
[2019-09-25] MEDS: ALLOPURINOL 300 MG TAB PO SCH (09:36)
[2019-09-25] MEDS: INSULIN ASPART (NovoLOG) 100 UNIT/ML VIAL SQ SCH ×4 (09:37→20:36)
[2019-09-25] MEDS: ISOSORBIDE DINITRATE 10 MG TAB PO SCH (09:37)
[2019-09-25 11:41] LABS: Glucose,Whole Blood 174 mg/dL (75-99)
--- NOTE | 2019-09-25 11:59 | CDI ---
Documentation Clarification Form Date: 09/25/2019 11:39:00 AM From: Yanet Salcido RN, CCDS Admit Date: 09/21/2019 03:24:00 PM Patient Name: Tamar Dominguez Visit Number: [id number] ATTENTION: The Clinical Documentation Specialists (CDI) and [facility] Coding Staff appreciate your assistance in clarifying documentation. Please respond to the clarification below the line at the bottom and electronically sign. The CDI & [facility] Coding staff will review the response and follow-up if needed. Please note: Queries are made part of the Legal Health Record. If you have any questions, please contact the author of this message via ITS. Dr. Dominick Rosen A diagnosis of UTI has been documented in the EC and progress notes in a patient with a chronic IDC and further specificity is required. History/Risk Factors: CKD stage 4, Decubitus ulcer on coccyx, Chronic IDC Clinical Indicators: Per documentation in the EC this patient was admitted with an indwelling Burton catheter 09/20 ED Note: "UTI" 09/22 Pulmonary Consult: "Sepsis due to urinary tract infection with gram- negative bacilli. Gram-negative urinary tract infection." 09/21 Nephro Consult: "Chronic kidney disease stage 4 secondary to nephrosclerosis, currently with indwelling Burton catheter. Pyuria in a patient with chronic indwelling Burton catheter, started on empiric antibiotics." 09/23 Attending Progress note: "The patient also had a suspected vaginal bleeding. Initially, Dr. Walls saw the patient and MEDICAID BILLING CLERK source of bleeding was doubted at that time and the possibility of skin associated with the Burton catheter was .Apparently the bleeding stopped, but today the staff noted multiple clots from the vagina at around the urethral area and etiology related to indwelling Burton catheter was suspected and the patient will be closely monitored. The urine culture is positive for Citrobacter youngae which is sensitive to Levaquin and Zosyn and gram-negative bacilli unknown at this time. Acute urinary tract infection with gram-negative bacilli and Citrobacter youngae infection with possible sepsis, present on admission." 09/20 Urinalysis: Cloudy, trace protein, small blood, positive Nitrate, Large leukocyte Esterase, 16 RBC, >182 WBC, many WBC Clumps, many bacterial, rare mucus 4/8 Urine CX: Citrobacter youngae, Pseudomonas aeruginosa 09/20 - 09/24 Lab results: WBC 11.6/8.8, BUN 187/143/117/83/63, Creatinine 2.19/1.69/1.41/1.29/.98 Treatment: Rocephin 1000 mg IVP x 1 Levaquin 500 mg PO Q 48 hrs Zosyn 3.375 fm IVPB Q 8 hrs 0.9% NS IVF Bolus 500 cc In your professional opinion, can you please clarify the etiology of the UTI, if known? Chronic Burton catheter realted UTI UTI not related to Burton catheter Other condition, please specify Unable to determine If an infective organism is present, please specify cause and effect relationship if applicable. (Last Revision: September 2017) Chronic burton catheter related UTI MTDD
--- NOTE | 2019-09-25 14:32 | PN ---
PROGRESS NOTE Patient is seen for followup for acute kidney injury. She is currently comfortable, lying in bed, not in any acute distress. Patient denies any complaints. She is maintained on IV fluids. PHYSICAL EXAMINATION: On examination, blood pressure this morning was 93/64, heart rate 98 per minute. She is afebrile. Examination of the heart S1, S2. Examination of the lungs, bilateral breath sounds are heard. ABDOMEN: Soft. Morbidly obese. Examination lower extremities shows no significant edema. Chronic skin changes noted. LABS: Show sodium 137, potassium 3.4, chloride 106, BUN 63, creatinine 0.98, hemoglobin 11.4 g/dL. ASSESSMENT: 1. Acute kidney injury prerenal currently significantly improved with IV hydration. 2. Chronic kidney disease stage 3, serum creatinine currently down to 0.9 mg/dL. 3. Vaginal bleeding seems to have stopped now. 4. Hypothyroidism. 5. Pyuria in a patient with chronic indwelling Hayes catheter. Urine culture growing Citrobacter youngae and Pseudomonas aeruginosa. PLAN: Continue to encourage increased oral intake. Discontinue IV fluid fluids. Continue antibiotics. MMODL / IJN: [id number] /
[2019-09-25 17:12] LABS: Glucose,Whole Blood 215 mg/dL (75-99)
--- NOTE | 2019-09-25 19:59 | PN ---
PROGRESS NOTE DATE OF SERVICE: 09/25/2019 I am covering for Dr. Rosen. This 79-year-old woman who was admitted with acute UTI also had bleeding from the vaginal area. The patient also has significant weakness also. Nephrology is following the patient closely. POTATO CHIP SORTER has seen the patient previously. The vaginal bleeding is improved at this time. The culture showed Citrobacter youngae and Pseudomonas aeruginosa, which is both sensitive to Zosyn and antibiotics changed to Zosyn at this time. Patient closely monitored. PAST MEDICAL HISTORY: Reviewed. REVIEW OF SYSTEMS: Not taken, the patient is drowsy at this time. CURRENT MEDICATIONS: Reviewed and include: 1. Ventolin 2 puffs q.i.d. 2. Zyloprim 300 mg. 3. Lipitor 40 mg. 5. Dulcolax 10 mg. 6. Colace. 7. Guaifenesin. 8. NovoLog. 9. Levemir 30 units q.h.s. 10.Isordil. 11.Synthroid. 12.Xylocaine. 13.Cytomel. 14.Milk of magnesia. 15.Antivert. 16.Lopressor. 17.Protonix. 18.Zosyn 3.375 IV q.8. PHYSICAL EXAM: Patient is alert, oriented x3. Pulse is 98. Blood pressure 93/64, respiration 18, temperature 97.3, pulse ox 97% on 2 L. HEENT: Conjunctivae normal. NECK: No JVD. CARDIOVASCULAR: S1, S2 muffled. RESPIRATORY SYSTEM: Breath sounds diminished at the bases. Scattered rhonchi. ABDOMEN: Soft, nontender. LEGS are no edema. No swelling. CENTRAL NERVOUS SYSTEM: Diffusely weak. LABS: Platelets 130. Sodium 137, potassium 3.4. ASSESSMENT: 1. Acute urinary tract infection with sepsis including Citrobacter youngae and as well as Pseudomonas aeruginosa sepsis present on admission. 2. Generalized weakness secondary to sepsis. 3. Change in mental status, metabolic encephalopathy, acute, secondary to sepsis. 4. Right-sided pneumonia. 5. Possible bleeding or vaginal bleeding. 6. Morbid obesity. 7. Chronic cellulitis of the lower extremities. 8. History of atrial fibrillation, chronic. 9. History of congestive heart failure. 10.History of chronic obstructive pulmonary disease. 11.Diabetes type 2. 12.History of deep vein thrombosis. 13.Hypertension. 14.Hyperlipidemia. 15.History of degenerative joint disease. 16.History of rheumatoid arthritis. 17.History of sleep apnea. 18.History of chronic hypoxic respiratory failure. 19.Obesity with body mass index of 38.4. 20.Hypokalemia and mild thrombocytopenia. 21.FULL CODE. RECOMMENDATIONS AND DISCUSSION: Continue current medications, medical management and symptomatic treatment. The patient also had hypokalemia and mild thrombocytopenia in the. Continue the current medications, management and symptomatic treatment. Otherwise, repeat labs. Otherwise continue the antibiotics as mentioned earlier. Continue to monitor and Dr. Rosen will follow tomorrow. Further recommendations to follow. MMODL / IJN: [id number] / MTDD
[2019-09-25 20:22] LABS: Glucose,Whole Blood 213 mg/dL (75-99)
[2019-09-25] MEDS: INSULIN DETEMIR (LEVEMIR) 100 UNIT/ML SYR SQ SCH (20:36)
[2019-09-25] MEDS: ATORVASTATIN 40 MG TAB PO SCH (20:36)
[2019-09-26] MEDS: PIPERACILLIN-TAZOBACTAM 3.375 GM in SODIUM CHLORIDE 0.9% 100 ML IVPB SCH ×2 (00:41→08:33)
[2019-09-26 01:38] VITALS: RESP 16
[2019-09-26] MEDS: LIOTHYRONINE SODIUM 5 MCG TAB PO SCH (06:07)
[2019-09-26] MEDS: PANTOPRAZOLE 40 MG TABLET PO SCH (06:07)
[2019-09-26] MEDS: LEVOTHYROXINE 88 MCG TAB PO SCH (06:07)
[2019-09-26 06:56] LABS: Glucose,Whole Blood 116 mg/dL (75-99)
[2019-09-26] MEDS: INSULIN ASPART (NovoLOG) 100 UNIT/ML VIAL SQ SCH ×2 (07:19→12:05)
[2019-09-26 07:43] VITALS: PULSE 70; TEMP 98.5
[2019-09-26 07:45] LABS: Basophils % (A) 0 %; Eosinophils # (A) 0.3 k/uL (0-0.7); Eosinophils % (A) 3 %; HGB 11.7 gm/dL (11.4-16.0); Hypochromasia Slight; Lymphocytes # (A) 2.4 k/uL (1.0-4.8); Lymphocytes % (A) 27 %; MCH 30.1 pg (25.0-35.0); MCHC 31.7 g/dL (31.0-37.0); MCV 94.8 fL (80.0-100.0); Mean Platelet Volume 9.7; Monocytes # (A) 0.4 k/uL (0-1.0); Monocytes % (A) 5 %; Neutrophils # (A) 5.6 k/uL (1.3-7.7); Neutrophils % (A) 63 %; Platelet Count 138 k/uL (150-450); RDW 15.6 % (11.5-15.5); WBC 8.9 k/uL (3.8-10.6)
[2019-09-26] MEDS ORDERED: METOPROLOL TARTRATE 50 MG TAB PO SCH (08:00)
[2019-09-26 08:10] LABS: Calcium 9.3 mg/dL (8.4-10.2)
[2019-09-26] MEDS: TIOTROPIUM 18 MCG/PUFF INHALER INHALATION SCH (08:10)
[2019-09-26] MEDS: ALBUTEROL HFA INHALER INHALATION SCH ×2 (08:10→12:20)
[2019-09-26 08:12] VITALS: BP 100/58
[2019-09-26 08:18] LABS: Potassium 4.2 mmol/L (3.5-5.1)
[2019-09-26] MEDS: ISOSORBIDE DINITRATE 10 MG TAB PO SCH (08:30)
[2019-09-26] MEDS: DOCUSATE 100 MG CAP PO SCH (08:33)
[2019-09-26] MEDS: ALLOPURINOL 300 MG TAB PO SCH (08:33)
[2019-09-26] MEDS: MECLIZINE 12.5 MG TAB PO SCH (08:33)
--- NOTE | 2019-09-26 09:12 | P.GSCN ---
History of Present Illness Consult date: 09/26/19 Reason for Consult: Vaginal bleeding History of present illness: The patient is an 79-year-old female transferred from the [facility] o n 09/20/2021 to the emergency room for evaluation of confusion and reduced awareness. She was noted to have acute renal failure with a BUN of 187 and a creatinine of 2.1. She has a history of atrial fibrillation and has been treated with warfarin. According to the emergency room physician's note her INR was 6.2 the day prior to admission and 4.6 on the date of admission. She was also discovered to have a right lower lobe pneumonia. The patient has had an indwelling catheter for several months and a urinalysis suggested a urinary tract infection. The day following her admission she says she sneezed and was straining to have a bowel movement following which she was noted to have a large amount of blood which drained from the vagina. There was no blood in her stools. She was evaluated by . Urine draining from her catheter was grossly clear. Lower abdominal and transvaginal ultrasound showed no abnormality. The patient had previously undergone hysterectomy and bimanual examination performed by Dr. Walls revealed nothing that would explain the bleeding. There was apparently some excoriation at the vaginal introitus but it was unclear whether this was the source of the bleeding. Since that time the bleeding has stopped. According to her nurse there has been no significant drainage of blood from the vagina for over 36 hours. Her urine has never been bloody. The patient denies any previous history of vaginal bleeding or gross hematuria. She says she's had the catheter for several months and thinks that it was inserted because she was having urinary frequency. She denied any incontinence prior to placement of the catheter. She was noted to have a Citrobacter urinary tract infection on 08/17 and a urine culture obtained at the time of this admission grew Citrobacter and pseudomonas aeruginosa. Patient was initially started on Levaquin and is currently receiving Zosyn. Review of Systems - Constitutional Denies chills, Denies fever - Gastrointestinal Denies abdominal pain - Genitourinary Genitourinary: Reports as per HPI ( ) Past Medical History Past Medical History: Atrial Fibrillation, Heart Failure, COPD, Diabetes Mellitus, Deep Vein Thrombosis (DVT), GERD/Reflux, Hyperlipidemia, Hypertension, Osteoarthritis (OA), Pneumonia, Renal Disease, Respiratory Disorder, Rheumatoid Arthritis (RA), Sleep Apnea/CPAP/BIPAP, Thyroid Disorder Additional Past Medical History / Comment(s): Pt recently admitted to [facility] on 07/06/19 with pressure injury bilateral heels/gangrene, acute on chronic chf, cellulitis L lower extremity, bilateral pleural effusion. Other hx: Chronic respiratory failure, home O2 at 2L/NC, possible mild pulmonary HTN, JOSR but no longer uses her device, lower extremity edema/redness/cellulitis, bilateral heel wounds,pt states she currently has a decubitus on her coccyx, IDDM type II, neuropathy bilateral hands/feet, CKD stage III, pt states she has had "bleeding in the kidneys" in the past, anemia, UTI with sepsis, incontinent of urine and occasionally stool, migraines, gout, hypothyroid, vertigo. History of Any Multi-Drug Resistant Organisms: Other MDRO Past Surgical History: Heart Catheterization, Hysterectomy, Joint Replacement, Orthopedic Surgery Additional Past Surgical History / Comment(s): L heel debridement with bx, midline, cardiac cath 2016-treated medically, R total knee replacement, L foot heel spur, sanjana cataracts with lens implants, cystoscopy, EGD, colonoscopy. Past Anesthesia/Blood Transfusion Reactions: No Reported Reaction Past Psychological History: No Psychological Hx Reported Additional Psychological History / Comment(s): since 1997. Pt currently at [facility] for rehab. She states she is always in bed d/t bilateral heel wounds. No travel. experience. No animal exposures. stopped smoking several years ago no history of recreational drug use Smoking Status: Former smoker Past Alcohol Use History: None Reported Additional Past Alcohol Use History / Comment(s): Pt started smoking in 1953 and quit in 2013. Past Drug Use History: None Reported - Past Family History Mother Family Medical History: Renal Disease Father Family Medical History: Coronary Artery Disease (CAD) Medications and Allergies Home Medications Medication Instructions Recorded Confirmed Type Potassium Chloride ER [K-Dur 20] 40 meq PO DAILY@0800 03/22/18 09/21/19 History Ubidecarenone [Co Q-10] 200 mg PO DAILY@1700 03/22/18 09/21/19 History Allopurinol [Zyloprim] 300 mg PO DAILY@0800 02/10/09/21/19 History Atorvastatin [Lipitor] 40 mg PO HS@2100 02/10/19 09/21/19 History Liothyronine Sodium [Cytomel] 5 mcg PO DAILY@0600 02/10/19 09/21/19 History Levothyroxine Sodium [Synthroid] 88 mcg PO DAILY@0607/06/19 09/21/19 History Meclizine [Antivert] 12.5 mg PO TID@0800,1200,1700 07/06/19 09/21/19 History Ipratropium-Albuterol Nebulize 3 ml INHALATION RT-Q4H ml 07/12/19 09/21/19 Rx [Duoneb 0.5 mg-3 mg/3 ml Soln] Benzocaine/Menthol Lozeng [Cepacol 1 lozenge MUCOUS MEM Q6H PRN 07/13/19 0 09/21/19 History lozenge] Bisacodyl [Dulcolax] 10 mg RECTAL DAILY PRN 07/13/19 09/21/19 History INSULIN LISPRO (humaLOG) [humaLOG] See Protocol SQ ACHS 07/13/19 09/21/19 History Ipratropium-Albuterol Nebulize 3 ml INHALATION RT-Q4H PRN 07/13/19 09/21/19 History [Duoneb 0.5 mg-3 mg/3 ml Soln] Isosorbide Dinitrate 30 mg PO DAILY@0807/13/19 09/21/19 History Pierce Packet 1 packet PO BID@0800,1700 07/13/19 09/21/19 History Magnesium Hydroxide [Milk of 7,200 mg PO DAILY PRN 07/13/19 09/21/19 History Magnesia Concentrate] Na Phos,M-B/Na Phos,Di-Ba [Fleet 133 ml RECTAL DAILY PRN 07/13/19 09/21/19 History Adult] guaiFENesin-DM 100-10MG/5ML 10 ml PO Q6H PRN ml 07/19/19 09/21/19 Rx [Robitussin DM] Acetaminophen Tab [Tylenol] 650 mg PO Q4HR PRN 09/21/19 09/21/19 History Docusate [Colace] 100 mg PO DAILY@0800 09/21/19 09/21/19 History Furosemide [Lasix] 40 mg PO DAILY@0800 09/21/19 09/21/19 History Insulin Detemir (Levemir) [Levemir] 30 unit SQ HS@2100 09/21/19 09/21/19 History Lidocaine 5% Oint [Xylocaine 5% 1 applic TOPICAL DAILY PRN 09/21/19 09/21/19 History Oint] Metoprolol Tartrate [Lopressor] 100 mg PO BID@0800,1700 09/21/19 09/21/19 History Pantoprazole Sodium [Protonix] 40 mg PO DAILY@0600 09/21/19 09/21/19 History traMADol HCL [Ultram] 50 mg PO Q8H PRN 09/21/19 09/21/19 History Allergies Allergy/AdvReac Type Severity Reaction Status Date / Time iron Allergy Rash/Hives Verified 09/21/19 13:42 Sulfa (Sulfonamide Allergy Rash/Hives Verified 09/21/19 13:42 Antibiotics) Tetanus Vaccines and Toxoid Allergy Swelling Verified 09/21/19 13:42 Surgical - Exam Vital Signs Temp Pulse Resp BP Pulse Ox 98.3 F 88 18 101/73 98 09/21/19 12:35 09/21/19 12:35 09/21/19 12:35 09/21/19 12:35 09/21/19 12:35 - General well developed, well nourished, no distress, obese - ENT no hearing loss - Neck no masses, no lymphadectomy - Respiratory normal respiratory effort - Abdomen Abdomen: soft, non tender, no organomegaly - Genitourinary other (A Hayes catheter is in place and is draining clear urine. The vaginal introitus was initially covered in feces. After cleaning away the introitus there appeared to be a linear area of excoriation on the right labia which would be consistent with irritation from the Hayes catheter. There was no blood pres ent at the urethral meatus.) Results - Labs 09/26/19 07:05 09/26/19 07:05 Abnormal Lab Results - Last 24 Hours (Table) 09/25/19 09/25/19 09/25/19 Range/Units 11:38 16:55 20:20 RDW (11.5-15.5) % Plt Count (150-450) k/uL Chloride (98-107) mmol/L Carbon Dioxide (22-30) mmol/L BUN (7-17) mg/dL Glucose (74-99) mg/dL POC Glucose (mg/dL) 174 H 215 H 213 H (75-99) mg/dL 09/26/19 09/26/19 09/26/19 Range/Units 06:55 07:05 07:05 RDW 15.6 H (11.5-15.5) % Plt Count 138 L (150-450) k/uL Chloride 109 H (98-107) mmol/L Carbon Dioxide 21 L (22-30) mmol/L BUN 49 H (7-17) mg/dL Glucose 103 H (74-99) mg/dL POC Glucose (mg/dL) 116 H (75-99) mg/dL Microbiology - Last 24 Hours (Table) 09/21/19 12:57 Blood Culture - Preliminary Blood No Growth after 96 hours Diabetes panel 09/26/19 Range/Units 07:05 Sodium 137 (137-145) mmol/L Potassium 4.2 (3.5-5.1) mmol/L Chloride 109 H (98-107) mmol/L Carbon Dioxide 21 L (22-30) mmol/L BUN 49 H (7-17) mg/dL Creatinine 0.79 (0.52-1.04) mg/dL Glucose 103 H (74-99) mg/dL Calcium 9.3 (8.4-10.2) mg/dL Calcium panel 09/26/19 Range/Units 07:05 Calcium 9.3 (8.4-10.2) mg/dL Pituitary panel 09/26/19 Range/Units 07:05 Sodium 137 (137-145) mmol/L Potassium 4.2 (3.5-5.1) mmol/L Chloride 109 H (98-107) mmol/L Carbon Dioxide 21 L (22-30) mmol/L BUN 49 H (7-17) mg/dL Creatinine 0.79 (0.52-1.04) mg/dL Glucose 103 H (74-99) mg/dL Calcium 9.3 (8.4-10.2) mg/dL Adrenal panel 09/26/19 Range/Units 07:05 Sodium 137 (137-145) mmol/L Potassium 4.2 (3.5-5.1) mmol/L Chloride 109 H (98-107) mmol/L Carbon Dioxide 21 L (22-30) mmol/L BUN 49 H (7-17) mg/dL Creatinine 0.79 (0.52-1.04) mg/dL Glucose 103 H (74-99) mg/dL Calcium 9.3 (8.4-10.2) mg/dL Assessment and Plan (1) Vaginal bleeding Narrative/Plan: The source of the patient's vaginal bleeding is not clear. It is unclear whether this came from within the vagina or from the urethral opening. The patient has no evidence of gross urethral prolapse, which in some women can lead to vaginal spotting. The patient had been on warfarin prior to admission and whatever the source of bleeding, the amount of bleeding was increased because of this. Unfortunately an INR was not checked at the time of the bleeding however this has normalized and was 1.6 on 09/23. At least at this time I do not feel that further urologic evaluation of the bleeding is necessary unless it recurs. It is unclear exactly why the patient has an indwelling catheter. It's possible that this was placed to facilitate nursing care as the patient is unable to ambulate and has decubitus ulcers on her heels. Once the patient returns to her skilled nursing it may be reasonable to give her a voiding trial. Current Visit: Yes Status: Acute Code(s): N93.9 - ABNORMAL UTERINE AND VAGINAL BLEEDING, UNSPECIFIED SNOMED Code(s): 497175528
--- NOTE | 2019-09-26 09:23 | P.PN ---
Subjective Patient is seen in follow-up for acute kidney injury. Renal injury has resolved. Creatinine 0.79 today. Oral intake is good. No vomiting or diar kathy. Good urine output. Vital signs are stable. General: The patient appeared well nourished and normally developed. HEENT: Head exam is unremarkable. Neck is without jugular venous distension. LUNGS: Lungs are clear to auscultation and percussion. Breath sounds decreased. HEART: Rate and Rhythm are regular. First and second heart sounds normal. No murmurs, rubs or gallops. ABDOMEN: Nontender. EXTREMITITES: No edema. Objective - Vital Signs Vital signs: Vital Signs Temp 98.5 F 09/26/19 07:00 Pulse 70 09/26/19 07:00 Resp 16 09/26/19 07:00 BP 100/58 09/26/19 07:00 Pulse Ox 98 09/26/19 07:00 Intake & Output 09/25/19 09/26/19 09/26/19 18:59 06:59 18:59 Intake Total 350 Output Total 750 950 Balance -750 -600 Intake: Oral 350 Output: Urine 750 950 Other: Voiding Method Indwelling Catheter Indwelling Catheter # Bowel Movements 1 1 - Labs CBC & Chem 7: 09/26/19 07:05 09/26/19 07:05 Labs: Abnormal Lab Results - Last 24 Hours (Table) 09/25/19 09/25/19 09/25/19 Range/Units 11:38 16:55 20:20 RDW (11.5-15.5) % Plt Count (150-450) k/uL Chloride (98-107) mmol/L Carbon Dioxide (22-30) mmol/L BUN (7-17) mg/dL Glucose (74-99) mg/dL POC Glucose (mg/dL) 174 H 215 H 213 H (75-99) mg/dL 09/26/19 09/26/19 09/26/19 Range/Units 06:55 07:05 07:05 RDW 15.6 H (11.5-15.5) % Plt Count 138 L (150-450) k/uL Chloride 109 H (98-107) mmol/L Carbon Dioxide 21 L (22-30) mmol/L BUN 49 H (7-17) mg/dL Glucose 103 H (74-99) mg/dL POC Glucose (mg/dL) 116 H (75-99) mg/dL Microbiology - Last 24 Hours (Table) 09/21/19 12:57 Blood Culture - Preliminary Blood No Growth after 96 hours Assessment and Plan Plan: Assessment: 1. Acute kidney injury mostly prerenal improved with IV hydration. GFR at baseline. 2. UTI with urine culture positive for Citrobacter and Pseudomonas maintained on antibiotics. 3. Vaginal bleeding. Evaluated by urology. Seems to have improved. 4. Insulin-dependent diabetes mellitus. 5. Mild metabolic acidosis secondary to IV fluids. Plan: Encourage oral intake. Avoid nephrotoxins. No changes from nephrology standpoint
--- NOTE | 2019-09-26 10:57 | P.DS ---
Providers Date of admission: 09/21/19 15:24 Expected date of discharge: 09/26/19 Attending physician: Dominick Rosen MD Consults: 09/21/19 15:24 Consult Physician Routine Consulting Provider: Yahaira Barber Consult Reason/Comments: Acute kidney injury Do you want consulting provider notified?: Yes 09/21/19 15:26 Consult Physician Routine Consulting Provider: Elmo Voss Consult Reason/Comments: Pneumonia Do you want consulting provider notified?: Yes 09/22/19 11:04 Consult Physician Routine Consulting Provider: Sanjuana Walls Consult Reason/Comments: vaginal bleeding Do you want consulting provider notified?: Yes 09/24/19 14:42 Consult Physician Urgent Consulting Provider: Herbert Alarcon Consult Reason/Comments: bleeding/clots associated with chronic burton Do you want consulting provider notified?: Yes Primary care physician: [facility] Course: Final Diagnoses: -Sepsis secondary to Acute UTI with Citrobacter youngae and pseudomonas aeruginosa, secondary to chronic Burton catheter, present on admission -Medical debilitation, increased Generalized weakness secondary to the above -Acute on chronic metabolic encephalopathy secondary to the above, significantly improved -acute right lower lobe community acquired pneumonia. Coronavirus not detected. Current Visit: Yes Status: Acute Code(s): J18.9 - PNEUMONIA, UNSPECIFIED ORGANISM SNOMED Code(s): 692693977 -Bleeding from the genitourinary system, VALVER following; doubt malignancy, suspect skin cut, try, in the area of her catheter insertion -Chronic kidney disease, stage 4 (severe) Current Visit: Yes Status: Acute Code(s): N18.4 - CHRONIC KIDNEY DISEASE, STAGE 4 (SEVERE) SNOMED Code(s): 883038948 -Acute kidney renal failure, Baseline creatinine 1.5-1.6. Current Visit: Yes Status: Acute Code(s): N17.9 - ACUTE KIDNEY FAILURE, UNSPECIFIED SNOMED Code(s): 13501570 -Acute on chronic diastolic (congestive) heart failure Current Visit: No Status: Acute Code(s): I50.33 - ACUTE ON CHRONIC DIASTOLIC (CONGESTIVE) HEART FAILURE SNOMED Code(s): 710758058 -Chronic Cellulitis of left lower extremity, improved Current Visit: No Status: Acute Code(s): L03.116 - CELLULITIS OF LEFT LOWER LIMB SNOMED Code(s): 907150336 - left lower quadrant pain, secondary to constipation versus enteritis ,resolved -CAD -Diabetes mellitus -Morbid obesity, BMI 38.4 Hospital course:Tamar Dominguez is an 79 yo F with PMH of systolic CHF, COPD, a fib, T2DM, CKD4, hx DVT, lymphedema who presented to the ED from assisted after staff noticed pt to be increasingly weak with vaginal bleeding. Over the past few days pt apparently more lethargic, confused, and weak with vaginal bleeding noted by staff. There was concern for cough as well but pt denies any respiratory symptoms today. Pt was last admitted about 2 months ago for CHF exacerbation and has been at her baseline since then, she does report infrequent bowel movement over the past several weeks. She denies any nausea, vomiting, fever or chills. In the ED her vitals were stable, WBC 11k, BUN 1187 Cr 2. CXR with small RLL infiltrate. Covid and flu negative. 09/23/2019 maintained on IV antibiotics and gentle IV fluid hydration with significant clinical improvement. Urine cultures reporting gram-negative bacilli .Afebrile. Renal function improving. Evaluated by VALVER, bleeding attributed to probably skin cut/tear/trauma from chronic Burton catheter. Denies abdominal pain. Denies chest pain, palpitations or increased shortness of breath. Significant clinical improvement. Patient is being discharged to [facility] subacute rehab in stable condition with guarded prognosis. Microbiology 09/21/19 12:57 Blood Blood Culture - Preliminary No Growth after 96 hours 09/21/19 12:45 Urine,Voided Urine Culture - Final Citrobacter youngae Pseudomonas aeruginosa The impression and plan of care has been dictated as directed. : I performed a history and examination of this patient, discussed the same with the dictator. I agree with the dictator's note ,documented as a scribe. Any additional findings or plans will be noted. Patient Condition at Discharge: Stable Plan - Discharge Summary Discharge Rx Participant: No New Discharge Prescriptions: New Amoxic-Pot Clav 875-125Mg [Augmentin 875-125] 1 tab PO Q12HR 3 Days #6 tab Metoprolol Tartrate [Lopressor] 50 mg PO BID@0800,1700 tab Tiotropium 18 Mcg/Puff [Spiriva] 1 puff INHALATION RT-DAILY inhaler Continue Ubidecarenone [Co Q-10] 200 mg PO DAILY@1700 Potassium Chloride ER [K-Dur 20] 40 meq PO DAILY@0800 Atorvastatin [Lipitor] 40 mg PO HS@2100 Allopurinol [Zyloprim] 300 mg PO DAILY@0800 Liothyronine Sodium [Cytomel] 5 mcg PO DAILY@0600 Levothyroxine Sodium [Synthroid] 88 mcg PO DAILY@0600 Meclizine [Antivert] 12.5 mg PO TID@0800,1200,1700 Ipratropium-Albuterol Nebulize [Duoneb 0.5 mg-3 mg/3 ml Soln] 3 ml INHALATION RT-Q4H ml Benzocaine/Menthol Lozeng [Cepacol lozenge] 1 lozenge MUCOUS MEM Q6H PRN PRN Reason: Sore Throat Bisacodyl [Dulcolax] 10 mg RECTAL DAILY PRN PRN Reason: Constipation INSULIN LISPRO (humaLOG) [humaLOG] See Protocol SQ ACHS Ipratropium-Albuterol Nebulize [Duoneb 0.5 mg-3 mg/3 ml Soln] 3 ml INHALATION RT-Q4H PRN PRN Reason: Shortness Of Breath Isosorbide Dinitrate 30 mg PO DAILY@0800 Pierce Packet 1 packet PO BID@0800,1700 Magnesium Hydroxide [Milk of Magnesia Concentrate] 7,200 mg PO DAILY PRN PRN Reason: Constipation Na Phos,M-B/Na Phos,Di-Ba [Fleet Adult] 133 ml RECTAL DAILY PRN PRN Reason: Constipation guaiFENesin-DM 100-10MG/5ML [Robitussin DM] 10 ml PO Q6H PRN ml PRN Reason: Cough Lidocaine 5% Oint [Xylocaine 5% Oint] 1 applic TOPICAL DAILY PRN PRN Reason: wound debridement Acetaminophen Tab [Tylenol] 650 mg PO Q4HR PRN PRN Reason: Pain Docusate [Colace] 100 mg PO DAILY@0800 Furosemide [Lasix] 40 mg PO DAILY@0800 Insulin Detemir (Levemir) [Levemir] 30 unit SQ HS@2100 Pantoprazole Sodium [Protonix] 40 mg PO DAILY@0600 traMADol HCL [Ultram] 50 mg PO Q8H PRN #9 tab PRN Reason: Pain Discontinued Metoprolol Tartrate [Lopressor] 100 mg PO BID@0800,1700 Discharge Medication List Potassium Chloride ER [K-Dur 20] 40 meq PO DAILY@0800 03/22/18 [History] Ubidecarenone [Co Q-10] 200 mg PO DAILY@1700 03/22/18 [History] Allopurinol [Zyloprim] 300 mg PO DAILY@0800 02/10/19 [History] Atorvastatin [Lipitor] 40 mg PO HS@2100 02/10/19 [History] Liothyronine Sodium [Cytomel] 5 mcg PO DAILY@0600 02/10/19 [History] Levothyroxine Sodium [Synthroid] 88 mcg PO DAILY@0600 07/06/19 [History] Meclizine [Antivert] 12.5 mg PO TID@0800,1200,1700 07/06/19 [History] Ipratropium-Albuterol Nebulize [Duoneb 0.5 mg-3 mg/3 ml Soln] 3 ml INHALATION RT-Q4H ml 07/12/19 [Rx] Benzocaine/Menthol Lozeng [Cepacol lozenge] 1 lozenge MUCOUS MEM Q6H PRN 07/13/19 [History] Bisacodyl [Dulcolax] 10 mg RECTAL DAILY PRN 07/13/19 [History] INSULIN LISPRO (humaLOG) [humaLOG] See Protocol SQ ACHS 07/13/19 [History] Ipratropium-Albuterol Nebulize [Duoneb 0.5 mg-3 mg/3 ml Soln] 3 ml INHALATION RT-Q4H PRN 07/13/19 [History] Isosorbide Dinitrate 30 mg PO DAILY@0800 07/13/19 [History] Pierce Packet 1 packet PO BID@0800,1700 07/13/19 [History] Magnesium Hydroxide [Milk of Magnesia Concentrate] 7,200 mg PO DAILY PRN [History] Na Phos,M-B/Na Phos,Di-Ba [Fleet Adult] 133 ml RECTAL DAILY PRN 07/13/19 [History] guaiFENesin-DM 100-10MG/5ML [Robitussin DM] 10 ml PO Q6H PRN ml 07/19/19 [Rx] Acetaminophen Tab [Tylenol] 650 mg PO Q4HR PRN 09/21/19 [History] Docusate [Colace] 100 mg PO DAILY@0800 09/21/19 [History] Furosemide [Lasix] 40 mg PO DAILY@0800 09/21/19 [History] Insulin Detemir (Levemir) [Levemir] 30 unit SQ HS@2100 09/21/19 [History] Lidocaine 5% Oint [Xylocaine 5% Oint] 1 applic TOPICAL DAILY PRN 09/21/19 [History] Pantoprazole Sodium [Protonix] 40 mg PO DAILY@0600 09/21/19 [History] Amoxic-Pot Clav 875-125Mg [Augmentin 875-125] 1 tab PO Q12HR 3 Days #6 tab 09/26/19 [Rx] Metoprolol Tartrate [Lopressor] 50 mg PO BID@0800,1700 tab 09/26/19 [Rx] Tiotropium 18 Mcg/Puff [Spiriva] 1 puff INHALATION RT-DAILY inhaler 09/26/19 [Rx] traMADol HCL [Ultram] 50 mg PO Q8H PRN #9 tab 09/26/19 [Rx] Follow up Appointment(s)/Referral(s): Dwain Weathers MD [Primary Care Provider] - 3 Days Sanjuana Walls DO [Doctor of Osteopathic Medicine] - As Needed Elmo Voss MD [STAFF PHYSICIAN] - 2 Weeks Dominick Rosen MD [STAFF PHYSICIAN] - 1 Week (After DC from subacute rehab) Activity/Diet/Wound Care/Special Instructions: [place] Diet: Consistent carb CBC, BMP in 3 days Activity: As tolerated 3 L nasal cannula O2 Follow-up x-ray in 4-6 weeks Burton catheter; voiding trial at [facility]
[2019-09-26 11:48] LABS: Glucose,Whole Blood 148 mg/dL (75-99)
--- NOTE | 2019-09-26 14:50 | P.PN ---
Subjective Progress Note Date: 09/26/19 Principal diagnosis: Generalized weakness and altered mental status secondary due to sepsis Sepsis due to urinary tract infection with gram-negative bacilli Gram-negative urinary tract infection Right-sided pneumonia Morbid obesity Chronic stage IV renal failure Vaginal bleeding of unclear etiology 09/26/2019, patient seen and evaluated examined during the rounds, patient is being planned for possible discharge hemodynamic has been stable, and room air oxygen saturation 98%, patient is afebrile temperature 98 This is a 79-year-old female with bilateral lower extremity cellulitis has significant history of chronic systolic heart failure severe COPD chronic atrial fibrillation type 2 diabetes mellitus stage IV chronic renal failure also has a history of DVT patient has chronic lymphedema she was brought into the hospital with generalized progressive weakness as well as vaginal bleeding she has some cough shortness of breath however subsequently improved patient currently denies it the chest x-ray shows right lower lobe pneumonia however herCOVID and flu loredo ve been negative, patient is being treated with bronchodilators with Zosyn and Levaquin, I urine culture have been positive for gram-negative bacilli Objective - Vital Signs Vital signs: Vital Signs Temp 98.5 F 09/26/19 07:00 Pulse 70 09/26/19 07:00 Resp 16 09/26/19 07:00 BP 100/58 09/26/19 07:00 Pulse Ox 98 09/26/19 07:00 Intake & Output 09/25/19 09/26/19 09/26/19 18:59 06:59 18:59 Intake Total 350 Output Total 750 950 Balance -750 -600 Intake: Oral 350 Output: Urine 750 950 Other: Voiding Method Indwelling Catheter Indwelling Catheter # Bowel Movements 1 1 - Exam General: well nourished, well developed, NAD. Vitals reviewed Eyes: PERRL, EOMI, conjunctiva normal. HENT: normocephalic, oral mucosa moist Neck: supple, no JVD Lungs: normal respiratory effort, essentially clear, no wheezes or rales CV: Irregular, no murmur. Peripheral pulses 2+ Abdomen: soft, nondistended, no organomegaly. Minimal Tenderness LLQ upon palpation Skin: warm and dry. Bilateral LE with trace edema, venous stasis dermatitis, wea ring offloading bilateral boots Neuro: A&Ox3, normal mood and affect - Labs CBC & Chem 7: 09/26/19 07:05 09/26/19 07:05 Labs: Abnormal Lab Results - Last 24 Hours (Table) 09/25/19 09/25/19 09/26/19 Range/Units 16:55 20:20 06:55 RDW (11.5-15.5) % Plt Count (150-450) k/uL Chloride (98-107) mmol/L Carbon Dioxide (22-30) mmol/L BUN (7-17) mg/dL Glucose (74-99) mg/dL POC Glucose (mg/dL) 215 H 213 H 116 H (75-99) mg/dL 09/26/19 09/26/19 09/26/19 Range/Units 07:05 07:05 11:47 RDW 15.6 H (11.5-15.5) % Plt Count 138 L (150-450) k/uL Chloride 109 H (98-107) mmol/L Carbon Dioxide 21 L (22-30) mmol/L BUN 49 H (7-17) mg/dL Glucose 103 H (74-99) mg/dL POC Glucose (mg/dL) 148 H (75-99) mg/dL Microbiology - Last 24 Hours (Table) 09/21/19 12:57 Blood Culture - Preliminary Blood No Growth after 96 hours Assessment and Plan Assessment: Generalized weakness and altered mental status secondary due to sepsis Sepsis due to urinary tract infection with gram-negative bacilli Gram-negative urinary tract infection Right-sided pneumonia Morbid obesity Chronic stage IV renal failure Vaginal bleeding of unclear etiology Chronic cellulitis of the lower extremity Plan: Continue antibiotics Follow-up x-ray in 4-6 weeks Agree with pulmonary standpoint for discharge Time with Patient: Greater than 30
== END 2019-09-26 13:14 | DRG 698 ==
LOC: EC 12:33 → 4SSUR 15:24
PROVIDERS: ADMIT Family Medicine; ATTEND Family Medicine
DX: T83.511A Infection and inflammatory reaction due to indwelling urethral catheter, initial encounter (principal); A41.52 Sepsis due to Pseudomonas; R65.20 Severe sepsis without septic shock; G93.41 Metabolic encephalopathy; A41.89 Other specified sepsis; J18.9 Pneumonia, unspecified organism; L89.623 Pressure ulcer of left heel, stage 3; L89.613 Pressure ulcer of right heel, stage 3; E87.2 Acidosis; I13.0 Hypertensive heart and chronic kidney disease with heart failure and stage 1 through stage 4 chronic kidney disease, or unspecified chronic kidney disease; I48.20 Chronic atrial fibrillation, unspecified; I50.32 Chronic diastolic (congestive) heart failure; J44.0 Chronic obstructive pulmonary disease with (acute) lower respiratory infection; J96.11 Chronic respiratory failure with hypoxia; L03.116 Cellulitis of left lower limb; N17.9 Acute kidney failure, unspecified; N18.4 Chronic kidney disease, stage 4 (severe); N39.0 Urinary tract infection, site not specified; Z20.828 Contact with and (suspected) exposure to other viral communicable diseases; D69.6 Thrombocytopenia, unspecified; L89.156 Pressure-induced deep tissue damage of sacral region; I27.20 Pulmonary hypertension, unspecified; E11.42 Type 2 diabetes mellitus with diabetic polyneuropathy; E11.22 Type 2 diabetes mellitus with diabetic chronic kidney disease; S31.41XA Laceration without foreign body of vagina and vulva, initial encounter; E03.9 Hypothyroidism, unspecified; E66.01 Morbid (severe) obesity due to excess calories; E78.5 Hyperlipidemia, unspecified; E87.6 Hypokalemia; I89.0 Lymphedema, not elsewhere classified; T50.995A Adverse effect of other drugs, medicaments and biological substances, initial encounter; I25.10 Atherosclerotic heart disease of native coronary artery without angina pectoris; M06.9 Rheumatoid arthritis, unspecified; K21.9 Gastro-esophageal reflux disease without esophagitis; G47.33 Obstructive sleep apnea (adult) (pediatric); M19.90 Unspecified osteoarthritis, unspecified site; G43.909 Migraine, unspecified, not intractable, without status migrainosus; M10.9 Gout, unspecified; R32 Unspecified urinary incontinence; K59.00 Constipation, unspecified; K52.9 Noninfective gastroenteritis and colitis, unspecified; Z68.38 Body mass index [BMI] 38.0-38.9, adult; Z79.4 Long term (current) use of insulin; Z79.890 Hormone replacement therapy; Z79.899 Other long term (current) drug therapy; Z96.651 Presence of right artificial knee joint; Z90.710 Acquired absence of both cervix and uterus; Z87.891 Personal history of nicotine dependence; Z87.440 Personal history of urinary (tract) infections; Z86.718 Personal history of other venous thrombosis and embolism; Z88.5 Allergy status to narcotic agent; Z88.7 Allergy status to serum and vaccine; Z88.8 Allergy status to other drugs, medicaments and biological substances; Z87.01 Personal history of pneumonia (recurrent); Z99.81 Dependence on supplemental oxygen; Z98.42 Cataract extraction status, left eye; Z98.41 Cataract extraction status, right eye; Z96.1 Presence of intraocular lens; Z82.49 Family history of ischemic heart disease and other diseases of the circulatory system; Y84.6 Urinary catheterization as the cause of abnormal reaction of the patient, or of later complication, without mention of misadventure at the time of the procedure
CPT/HCPCS: 36415; 71045; 71046; 76830; 76856; 76857; 80048; 80053; 81001; 82140; 82550; 83605; 83735; 84484; 85025; 85027; 85610; 87040; 87077; 87086; 87186; 87502; 87635; 93005; 94640; 96361; 96365; 96375; 99285

== ENCOUNTER 2020-02-10 00:44 | Inpatient (IN) | payer MEDICARE, OTHER ==
--- NOTE | 2020-02-10 01:07 | ED ---
Recheck HPI - General Chief Complaint: Recheck/Abnormal Lab/Rx Stated Complaint: Covid swab Time Seen by Provider: 02/10/20 00:50 Source: patient, EMS, RN notes reviewed, old records reviewed Mode of arrival: EMS Limitations: no limitations - History of Present Illness Initial Comments: This is an 79-year-old female with senna DF for evaluation of coronavirus exposure and positive outpatient coronavirus testing. Patient is a COPD patient with no symptoms of coronavirus. Patient herself denying any symptoms of covert afebrile with no other significant complaints. MD Complaint: abnormal lab (Positive coronavirus test) -: unknown Returns Today for: Called Because of Abnormal Lab/Test Symptoms Since Prior Visit: no new symptoms Context: called for abnormal lab result Associated Symptoms: none - Related Data Home Medications Medication Instructions Recorded Confirmed Potassium Chloride ER [K-Dur 20] 40 meq PO DAILY@0800 03/22/18 09/21/19 Ubidecarenone [Co Q-10] 200 mg PO DAILY@1700 03/22/18 09/21/19 Atorvastatin [Lipitor] 40 mg PO HS@2100 02/10/19 09/21/19 Liothyronine Sodium [Cytomel] 5 mcg PO DAILY@0602/10/19 09/21/19 allopurinoL [Zyloprim] 300 mg PO DAILY@79902/10/19 09/21/19 Levothyroxine Sodium [Synthroid] 88 mcg PO DAILY@0607/06/19 09/21/19 Meclizine [Antivert] 12.5 mg PO TID@0800,1200,1700 07/06/19 09/21/19 Benzocaine/Menthol Lozeng [Cepacol 1 lozenge MUCOUS MEM Q6H PRN 07/13/19 09/21/19 lozenge] INSULIN LISPRO (humaLOG) [humaLOG] See Protocol SQ ACHS 07/13/19 09/21/19 Ipratropium-Albuterol Nebulize 3 ml INHALATION RT-Q4H PRN 07/13/19 09/21/19 [Duoneb 0.5 mg-3 mg/3 ml Soln] Isosorbide Dinitrate 30 mg PO DAILY@0800 07/13/19 09/21/19 Pierce Packet 1 packet PO BID@0800,1700 07/13/19 09/21/19 Magnesium Hydroxide [Milk of 7,200 mg PO DAILY PRN 07/13/19 09/21/19 Magnesia Concentrate] Na Phos,M-B/Na Phos,Di-Ba [Fleet 133 ml RECTAL DAILY PRN 07/13/19 09/21/19 Adult] bisacodyL [Dulcolax] 10 mg RECTAL DAILY PRN 07/13/19 09/21/19 Acetaminophen Tab [Tylenol] 650 mg PO Q4HR PRN 09/21/19 09/21/19 Docusate [Colace] 100 mg PO DAILY@0800 09/21/19 09/21/19 Furosemide [Lasix] 40 mg PO DAILY@79909/21/19 09/21/19 Insulin Detemir (Levemir) [Levemir] 30 unit SQ HS@2100 09/21/19 09/21/19 Lidocaine 5% Oint [Xylocaine 5% 1 applic TOPICAL DAILY PRN 09/21/19 09/21/19 Oint] Pantoprazole Sodium [Protonix] 40 mg PO DAILY@0600 09/21/19 09/21/19 Previous Rx's Medication Instructions Recorded Ipratropium-Albuterol Nebulize 3 ml INHALATION RT-Q4H ml 07/12/19 [Duoneb 0.5 mg-3 mg/3 ml Soln] guaiFENesin-DM 100-10MG/5ML 10 ml PO Q6H PRN ml 07/19/19 [Robitussin DM] Amoxic-Pot Clav 875-125Mg 1 tab PO Q12HR 3 Days #6 tab 09/26/19 [Augmentin 875-125] Metoprolol Tartrate [Lopressor] 50 mg PO BID@0800,1700 tab 09/26/19 Tiotropium 18 Mcg/Puff [Spiriva] 1 puff INHALATION RT-DAILY inhaler 09/26/19 traMADol HCL [Ultram] 50 mg PO Q8H PRN #9 tab 09/26/19 Allergies Allergy/AdvReac Type Severity Reaction Status Date / Time iron Allergy Rash/Hives Verified 09/21/19 13:42 Sulfa (Sulfonamide Allergy Rash/Hives Verified 09/21/19 13:42 Antibiotics) Tetanus Vaccines and Toxoid Allergy Swelling Verified 09/21/19 13:42 Review of Systems ROS Statement: Those systems with pertinent positive or pertinent negative responses have been documented in the HPI. ROS Other: All systems not noted in ROS Statement are negative. Past Medical History Past Medical History: Atrial Fibrillation, Heart Failure, COPD, Diabetes Mellitus, Deep Vein Thrombosis (DVT), GERD/Reflux, Hyperlipidemia, Hypertension, Osteoarthritis (OA), Pneumonia, Renal Disease, Respiratory Disorder, Rheumatoid Arthritis (RA), Sleep Apnea/CPAP/BIPAP, Thyroid Disorder Additional Past Medical History / Comment(s): Pt recently admitted to [facility] on 07/06/19 with pressure injury bilateral heels/gangrene, acute on chronic chf, cellulitis L lower extremity, bilateral pleural effusion. Other hx: Chronic respiratory failure, home O2 at 2L/NC, possible mild pulmonary HTN, JOSR but no longer uses her device, lower extremity edema/redness/cellulitis, bilateral heel wounds,pt states she currently has a decubitus on her coccyx, IDDM type II, neuropathy bilateral hands/feet, CKD stage III, pt states she has had "bleeding in the kidneys" in the past, anemia, UTI with sepsis, incontinent of urine and occasionally stool, migraines, gout, hypothyroid, vertigo. History of Any Multi-Drug Resistant Organisms: Other MDRO Past Surgical History: Heart Catheterization, Hysterectomy, Joint Replacement, Orthopedic Surgery Additional Past Surgical History / Comment(s): L heel debridement with bx, midline, cardiac cath 2017-treated medically, R total knee replacement, L foot heel spur, sanjana cataracts with lens implants, cystoscopy, EGD, colonoscopy. Past Anesthesia/Blood Transfusion Reactions: No Reported Reaction Past Psychological History: No Psychological Hx Reported Smoking Status: Never smoker Past Alcohol Use History: None Reported Past Drug Use History: None Reported - Past Family History Mother Family Medical History: Renal Disease Father Family Medical History: Coronary Artery Disease (CAD) General Exam Limitations: no limitations General appearance: alert, in no apparent distress Head exam: Present: atraumatic, normocephalic, normal inspection Eye exam: Present: normal appearance, PERRL, EOMI. Absent: scleral icterus, conjunctival injection, periorbital swelling ENT exam: Present: normal exam, mucous membranes moist Neck exam: Present: normal inspection. Absent: tenderness, meningismus, lymphadenopathy Respiratory exam: Present: normal lung sounds bilaterally. Absent: respiratory distress, wheezes, rales, rhonchi, stridor Cardiovascular Exam: Present: regular rate, normal rhythm, normal heart sounds. Absent: systolic murmur, diastolic murmur, rubs, gallop, clicks GI/Abdominal exam: Present: soft, normal bowel sounds. Absent: distended, tenderness, guarding, rebound, rigid Extremities exam: Present: normal inspection, full ROM, normal capillary refill. Absent: tenderness, pedal edema, joint swelling, calf tenderness Back exam: Present: normal inspection Neurological exam: Present: alert, oriented X3, CN II-XII intact Psychiatric exam: Present: normal affect, normal mood Skin exam: Present: warm, dry, intact, normal color. Absent: rash Course Vital Signs 02/10/20 00:48 Temperature 98.3 F Pulse Rate 83 Respiratory 20 Rate Blood Pressure 140/83 O2 Sat by Pulse 96 Oximetry - Reevaluation(s) Reevaluation #1: 02/10/20 01:33 Medical records reviewed Reevaluation #2: 02/10/20 01:33 Spoke patient regarding findings and symptoms, questions answered - Consultations Consultation #1: Spoke with Dr. Weathers regarding admission he agrees Medical Decision Making - Medical Decision Making 79 female DF for evaluation, patient is outpatient positive coronavirus test admitting for further evaluation monitoring regarding coronavirus - EKG Data -: EKG Interpreted by Me (EKG shows A. fib 82 QRS 74 QTc 446) - Radiology Data Radiology results: report reviewed (Chest x-ray shows bilateral pneumonia), image reviewed Disposition Clinical Impression: Bilateral pneumonia, Coronavirus infection Disposition: ADMITTED IP TO THIS [facility] Condition: Fair Referrals: Dwain Weathers MD [Primary Care Provider] - 1-2 days
--- NOTE | 2020-02-10 01:31 | XR ---
EXAMINATION TYPE: XR chest 1V portable DATE OF EXAM: 02/10/2020 COMPARISON: 09/22/2019 HISTORY: Pneumonia TECHNIQUE: Single view FINDINGS: There is some airspace infiltrate in the left lower lobe and also right midlung field. Ther e is blunting of the costophrenic angles. There is mild pulmonary congestion. IMPRESSION: There is bilateral pneumonia and atelectasis in the right midlung and left lower lobe britta t appears new compared to old exam. There are new pleural effusions. There is probably new congestive heart failure.
[2020-02-10] MEDS ORDERED: AZITHROMYCIN 500 MG in SODIUM CHLORIDE 0.9% 250 ML IVPB STA (01:34)
[2020-02-10] MEDS ORDERED: PNEUMONIA PROTOCOL UTILIZED 1 EACH MISC PO PRN (01:34)
[2020-02-10 01:38] LABS: Basophils # (A) 0.1 k/uL (0-0.2); Basophils % (A) 1 %; Eosinophils # (A) 0.6 k/uL (0-0.7); Eosinophils % (A) 6 %; HCT 36.9 % (34.0-46.0); HGB 11.5 gm/dL (11.4-16.0); Hypochromasia Moderate; Lymphocytes % (A) 18 %; MCH 29.7 pg (25.0-35.0); MCV 95.7 fL (80.0-100.0); Mean Platelet Volume 8.8; Monocytes # (A) 0.5 k/uL (0-1.0); Monocytes % (A) 4 %; Neutrophils # (A) 7.7 k/uL (1.3-7.7); Neutrophils % (A) 70 %; Platelet Count 185 k/uL (150-450); RBC 3.86 m/uL (3.80-5.40); RDW 15.5 % (11.5-15.5); WBC 10.9 k/uL (3.8-10.6)
[2020-02-10 01:47] LABS: ALT 15 U/L (4-34); AST 20 U/L (14-36); African American GFR (CKD) 62 (>60 ml/min/1.73 sqM); Albumin 3.8 g/dL (3.5-5.0); Alkaline Phosphatase 97 U/L (38-126); Anion Gap 5 mmol/L; Blood Urea Nitrogen 29 mg/dL (7-17); Calcium 9.5 mg/dL (8.4-10.2); Carbon Dioxide 37 mmol/L (22-30); Chloride 99 mmol/L (98-107); Glucose 126 mg/dL (74-99); LDH 509 U/L (313-618); Magnesium 1.9 mg/dL (1.6-2.3); Non-African American GFR(CKD) 54 (>60 ml/min/1.73 sqM); Partial Thromboplastin Time 24.6 sec (22.0-30.0); Prothrombin Time 10.2 sec (9.0-12.0); Sodium 141 mmol/L (137-145); Total Bilirubin 0.8 mg/dL (0.2-1.3); Total Protein 5.9 g/dL (6.3-8.2)
[2020-02-10] MEDS: SODIUM CHLORIDE 0.9% 1,000 ML IV SCH (01:55)
[2020-02-10 02:30] LABS: C Reactive Protein <5.0 mg/L (<10.0)
[2020-02-10] MEDS ORDERED: traMADol 50 MG TAB PO PRN (09:25)
[2020-02-10] MEDS ORDERED: BENZOCAINE/MENTHOL LOZENG 1 EACH LOZENGE MUCOUS MEM PRN (09:25)
[2020-02-10] MEDS ORDERED: MAG HYDROX/AL HYDROX/SIMETH 30 ML CUP PO PRN (09:25)
[2020-02-10] MEDS ORDERED: NA PHOS,M-B/NA PHOS,DI-BA 133 ML ENEMA RECTAL PRN (09:25)
[2020-02-10] MEDS ORDERED: ACETAMINOPHEN TAB 325 MG TAB PO PRN (09:25)
[2020-02-10] MEDS ORDERED: guaiFENesin-DM 100-10MG/5ML 10 ML CUP PO PRN (09:25)
[2020-02-10] MEDS ORDERED: bisacodyL 10 MG SUPP RECTAL PRN (09:25)
[2020-02-10] MEDS ORDERED: IPRATROPIUM-ALBUTEROL 3 ML NEB INHALATION PRN (09:25)
[2020-02-10] MEDS ORDERED: MAGNESIUM HYDROXIDE 2,400 MG/10 ML CUP PO PRN (09:25)
--- NOTE | 2020-02-10 10:19 | P.HPIM ---
History of Present Illness H&P Date: 02/10/20 Chief Complaint: Acute respiratory failure, bilateral COVID 19 pneumonitis, congestive heart 79-year-old female from [facility] with known for the last year with past medical history of COPD, CHF, DVT or thrombosis, atrophy fibrillation with RVR, history of rheumatoid arthritis, obstructive sleep apnea on BiPAP, recurrent hospitalization for respiratory failure and bilateral pneumonia with recurrent episode of COPD exacerbation. Patient was hospitalized lost few month ago for a COPD exacerbation and fluid overload was treated and done well. She has been in [facility] for the last 3 month period Patient was tested positive for the Covid 19 yesterday through screening all resident. Patient was having low-grade temperature with mild symptoms, no exposure, patient has been in quarantine since August has not left the place and has not exposed ready for family even through her window visit. No other resident in the same waiting tested positive. Patient brought to demurs department late last night and had Covid 19 PCR test pending at this point. Review her chest x-ray showed bilateral pneumonia with worsening fluid overload and COPD exacerbation patient was mildly hypoxic with picture bilateral pneumonitis, patient was started on Rocephin and azithromycin initially patient will be seen pulmonary and will try to start her on Remdesivir if agreeable by pulmonary and infectious disease. Review of Systems CONSTITUTIONAL: Well-developed morbidly overweight in mild respiratory distress. EYES: No icterus sclerae, no conjunctivitis. EARS, NOSE, MOUTH, THROAT, and FACE: No sore throat, lymphadenopathy, carotid bruits or deformity. RESPIRATORY: Positive shortness of breath cough wheezes. CARDIOVASCULAR: Positive PND orthopnea with arrhythmia and mild heart failure, GASTROINTESTINAL: No Abd pain, Nausea or vomiting, no Diarrhea or constipation, No GI Bleed, no distention or masses. GENITOURINARY: Negative for Hematuria or UTI, no kidney stones. Mild incontinence INTEGUMENT/BREAST: Negative for any muscular injury with mild osteoarthritis.. HEMATOLOGIC/LYMPHATIC: Negative for bleed or purpura. MUSCULOSKELTAL: Generalized back pain and muscle pain with arthralgia. Chronic edema. NEURLOGICAL: No LOC, Sz or syncope, blurred vision dizziness or abnormality.. BEHAVIORAL/PSYCH: Negative. ENDOCRINE: Negative. Past Medical History Past Medical History: Atrial Fibrillation, Heart Failure, COPD, Diabetes Mellitus, Deep Vein Thrombosis (DVT), GERD/Reflux, Hyperlipidemia, Hypertension, Osteoarthritis (OA), Pneumonia, Renal Disease, Respiratory Disorder, Rheumatoid Arthritis (RA), Sleep Apnea/CPAP/BIPAP, Thyroid Disorder Additional Past Medical History / Comment(s): Pt recently admitted to [facility] on 07/06/19 with pressure injury bilateral heels/gangrene, acute on chronic chf, cellulitis L lower extremity, bilateral pleural effusion. Other hx: Chronic respiratory failure, home O2 at 2L/NC, possible mild pulmonary HTN, JOSR but no longer uses her device, lower extremity edema/redness/cellulitis, bilateral heel wounds,pt states she currently has a decubitus on her coccyx, IDDM type II, neuropathy bilateral hands/feet, CKD stage III, pt states she has had "bleeding in the kidneys" in the past, anemia, UTI with sepsis, incontinent of urine and occasionally stool, migraines, gout, hypothyroid, vertigo. History of Any Multi-Drug Resistant Organisms: Other MDRO Past Surgical History: Heart Catheterization, Hysterectomy, Joint Replacement, Orthopedic Surgery Additional Past Surgical History / Comment(s): L heel debridement with bx, midline, cardiac cath 2017-treated medically, R total knee replacement, L foot heel spur, sanjana cataracts with lens implants, cystoscopy, EGD, colonoscopy. Past Anesthesia/Blood Transfusion Reactions: No Reported Reaction Past Psychological History: No Psychological Hx Reported Additional Psychological History / Comment(s): since 1997. Pt currently at [facility] for rehab. She states she is always in bed d/t bilateral heel wounds. No travel. experience. No animal exposures. stopped smoking several years ago no history of recreational drug use Smoking Status: Never smoker Past Alcohol Use History: None Reported Additional Past Alcohol Use History / Comment(s): Pt started smoking in 1953 and quit in 2013. Past Drug Use History: None Reported - Past Family History Mother Family Medical History: Renal Disease Father Family Medical History: Coronary Artery Disease (CAD) Medications and Allergies Home Medications Medication Instructions Recorded Confirmed Type Potassium Chloride ER [K-Dur 20] 40 meq PO DAILY@1700 03/22/18 02/10/20 History Ubidecarenone [Co Q-10] 200 mg PO DAILY@1700 03/22/18 02/10/20 History Atorvastatin [Lipitor] 40 mg PO HS@209902/10/19 02/10/20 History Liothyronine Sodium [Cytomel] 5 mcg PO DAILY@0600 02/10/19 02/10/20 History allopurinoL [Zyloprim] 300 mg PO DAILY@0802/10/19 02/10/20 History Levothyroxine Sodium [Synthroid] 88 mcg PO DAILY@0600 07/06/19 02/10/20 History Meclizine [Antivert] 12.5 mg PO TID@0800,1400,2100 07/06/19 02/10/20 History Ipratropium-Albuterol Nebulize 3 ml INHALATION RT-Q4H ml 07/12/19 02/10/20 Rx [Duoneb 0.5 mg-3 mg/3 ml Soln] Benzocaine/Menthol Lozeng [Cepacol 1 lozenge MUCOUS MEM Q6H PRN 07/13/19 History lozenge] INSULIN LISPRO (humaLOG) [humaLOG] See Protocol SQ ACHS 07/13/19 02/10/20 History Ipratropium-Albuterol Nebulize 3 ml INHALATION RT-Q4H PRN 07/13/19 02/10/20 History [Duoneb 0.5 mg-3 mg/3 ml Soln] Isosorbide Dinitrate 30 mg PO DAILY@79907/13/19 02/10/20 History Magnesium Hydroxide [Milk of 7,200 mg PO DAILY PRN 07/13/19 02/10/20 History Magnesia Concentrate] Na Phos,M-B/Na Phos,Di-Ba [Fleet 133 ml RECTAL DAILY PRN 07/13/19 02/10/20 History Adult] bisacodyL [Dulcolax] 10 mg RECTAL DAILY PRN 07/13/19 02/10/20 History guaiFENesin-DM 100-10MG/5ML 10 ml PO Q6H PRN ml 07/19/19 02/10/20 Rx [Robitussin DM] Acetaminophen Tab [Tylenol] 650 mg PO Q4HR PRN 09/21/19 02/10/20 History Docusate [Colace] 100 mg PO DAILY@0800 09/21/19 02/10/20 History Furosemide [Lasix] 40 mg PO BID@0800,1700 09/21/19 02/10/20 History Insulin Detemir (Levemir) [Levemir] 30 unit SQ HS@2100 09/21/19 02/10/20 History Pantoprazole Sodium [Protonix] 40 mg PO DAILY@0600 09/21/19 02/10/20 History Metoprolol Tartrate [Lopressor] 50 mg PO BID@0800,1700 tab 09/26/19 02/10/20 Rx Tiotropium 18 Mcg/Puff [Spiriva] 1 puff INHALATION RT-DAILY inhaler 09/26/19 02/10/20 Rx traMADol HCL [Ultram] 50 mg PO Q8H PRN #9 tab 09/26/19 02/10/20 Rx Apixaban [Eliquis] 2.5 mg PO BID@0800,1700 02/10/20 02/10/20 History Colloidal Oatmeal [Eucerin Eczema 1 applic TOPICAL DAILY 02/10/20 02/10/20 History Relief] Mag Hydrox/Al Hydrox/Simeth 15 ml PO Q6H PRN 02/10/20 02/10/20 History [Maalox] Allergies Allergy/AdvReac Type Severity Reaction Status Date / Time iron Allergy Rash/Hives Verified 02/10/20 07:39 Sulfa (Sulfonamide Allergy Rash/Hives Verified 02/10/20 07:39 Antibiotics) Tetanus Vaccines and Toxoid Allergy Swelling Verified 02/10/20 07:39 Physical Exam Vitals: Vital Signs Temp Pulse Pulse Resp BP BP Pulse Ox 02/10/20 07:47 97.9 F 75 16 138/88 95 02/10/20 02:51 16 02/10/20 02:25 97.9 F 81 16 139/88 99 02/10/20 01:37 20 02/10/20 00:48 98.3 F 83 20 140/83 96 Intake and Output 02/09/20 02/10/20 02/10/20 22:59 06:59 14:59 Intake Total 80 180 Output Total 900 Balance -820 180 Intake: Intake, IV Titration 80 Amount Sodium Chloride 0.9% 1, 80 000 ml @ 20 mls/hr IV . Q24H [facility] Rx#:[id number] Oral 180 Output: Urine 900 Other: Voiding Method Indwelling Catheter Weight 118.478 kg General Appearance: Alert, cooperative, look older than her age with mild respiratory distress. Neck HEENT: Supple, no lymphadenopathy, no thyroid enlargement, no carotid br uits. Lungs: Decreased breath some bilaterally with fine rhonchi positive mild crackles in the bases positive mild expiratory wheezes. Chest Wall: Decrease expansion with deep inspiration no tenderness and no deformity was found on exam, no costochondral pain or discomfort. Heart: Irregular rate and rhythm, S1, S2 positive S3 +5 cm JVD with significant systolic murmur.. Back: Symmetric, no curvature, ROM normal, no CVA tenderness. Abdomen: Soft, non-tender, bowel sounds active all four quadrants, no masses, no organomegaly. Extremities: 2+ edema with significant discoloration from the knee down with mild vascular cellulitis with no warmness no drainage. Pulses: Decreased pulse bilaterally. Skin: Skin color, texture, tugor normal, no rashes or lesions. Neurologic: Alert oriented x3 cranial nerves II through XII intact, positive generalized weakness no focal deficit. Results CBC & Chem 7: 02/10/20 01:24 02/10/20 01:24 Labs: Abnormal Lab Results - Last 24 Hours (Table) 02/10/20 02/10/20 Range/Units 01:24 01:24 WBC 10.9 H (3.8-10.6) k/uL Carbon Dioxide 37 H (22-30) mmol/L BUN 29 H (7-17) mg/dL Glucose 126 H (74-99) mg/dL Total Protein 5.9 L (6.3-8.2) g/dL Thrombosis Risk Factor Assmnt - DVT/VTE Prophylaxis DVT/VTE Prophylaxis: Pharmacologic Prophylaxis ordered, Mechanical Prophylaxis ordered - Choose All That Apply Any of the Below Risk Factors Present?: Yes Each Factor Represents 1 point: Medical pt on bed rest, Obesity (BMI >25) Other Risk Factors: Yes Each Risk Factor Represents 3 Points: Age 75 years or older Thrombosis Risk Factor Assessment Total Risk Factor Score: 5 Thrombosis Risk Factor Assessment Level: High Risk Assessment and Plan Assessment: 1 acute respiratory failure: Patient will be hospitalized, continue O2, continue updraft treatment, consult pulmonary patient will remain on updraft along with O2 and BiPAP when she is laying down or sleep. 2 bilateral Covid 19 pneumonitis: Patient was hospitalized, continue supportive care, does not require any mechanical ventilation at this point, another set of testing via PCR was already sent still pending at this point patient will be treated as Covid 19 ~result is back, Remdesivir will be started soon as she seen pulmonary or infectious disease in the meanwhile continue azithromycin along with Rocephin and continue steroid, patient remain on anticoagulation with Eliquis. We have part that patient marker are still negative at this point including her C-reactive protein, LDH and lactic acid. 3 COPD exacerbation: Patient will be on Solu-Medrol, updraft treatment, Pulmicort, and titrate O2. Patient lung capacity from last few admission has been extremely low. 4 A. fib with RVR: Remain on Eliquis 2.5 mg twice a day pulse rate is under control currently on metoprolol 50 mg twice a day no rapid pulse rate. 5 CHF: Chronic with acute component to diastolic dysfunction: Remain on furosemide 40 mg twice a day, continue isosorbide, continue metoprolol. 6 type 2 diabetes: Continue patient on Accu-Chek with sliding scales coverage along with long acting insulin Levemir 30 units subcutaneous at bedtime. 7 hyperlipidemia: Remain on atorvastatin 40 mg daily. 8 gout: Patient remain on Zyloprim 300 mg daily. 9 hypothyroidism: Remain on Cytomel 5 g daily along with levothyroxine 88 g a day. 10 GI prophylaxis/GERD: Remain on pantoprazole 40 mg a day. 11 chronic vascular cellulitis: Patient will be on antibiotic for now knee or thigh-high stocking and continued topical care with leg elevation and hopefully with the reduce of edema might help significantly. 12 anticoagulation: Patient is already on Eliquis 2.5 mg twice a day no need to start patient on any IV or subcutaneous anticoagulation. CODE STATUS: Full code. Admit patient to inpatient service for more than 2 night stay.
[2020-02-10 10:57] LABS: Ferritin 53.6 ng/mL (10.0-291.0)
[2020-02-10] MEDS: methylPREDNISolone SOD SUCCI 125 MG/2 ML VIAL IV SCH ×2 (11:55→15:37)
--- NOTE | 2020-02-10 13:12 | P.CNPUL ---
History of Present Illness Consult date: 02/10/20 Requesting physician: Dwain Weathers Reason for consult: dyspnea Chief complaint: Febrile illness, mild dyspnea, acute on chronic, COVID 19 infection History of present illness: 79-year-old white female patient, who resides in a local [facility], with past medical history of chronic A. fib, chronic CHF, COPD with chronic hypoxic respiratory failure, on home O2 at 2 L, diabetes mellitus type 2, chronic kidney disease stage III, who apparently was exposed to COVID19 in the [place] [facility], and tested positive. Patient was having a low-grade fever, with mild symptoms, normal chest discomfort, no cough. She was brought into the emergency department for evaluation, chest x-ray showed bilateral pneumonia and atelectasis in the right midlung and left lower lobe. Lab work showed a white blood cell count of 10.9, hemoglobin of 11.5, INR is 1.0, CO2 is 37, missed the electrolytes are within normal limits, B1 is 29 creatinine 0.9. Plasma lactic acid is 1.1, LFTs are within normal limits, ferritin level is normal at 53.6, LDH is within normal limits at 509, CRP is less than 5, Procalcitonin at the level is negative at 0.06. Patient is afebrile while in hospital, she is on 3 L of oxygen, her pulse ox of 95%, she sounded bronchospastic, and congested, and bringing up some colored phlegm. She's been started on azithromycin and Rocephin, breathing treatments Review of Systems All systems: negative Constitutional: Denies chills, Denies fever Eyes: denies blurred vision, denies pain Ears, nose, mouth and throat: Denies headache, Denies sore throat Cardiovascular: Denies chest pain, Denies shortness of breath Respiratory: Reports dyspnea, Denies cough Gastrointestinal: Denies abdominal pain, Denies diarrhea, Denies nausea, Denies vomiting Genitourinary: Denies dysuria, Denies hematuria Musculoskeletal: Denies myalgias Integumentary: Denies pruritus, Denies rash Neurological: Denies numbness, Denies weakness Psychiatric: Denies anxiety, Denies depression Endocrine: Denies fatigue, Denies weight change Past Medical History Past Medical History: Atrial Fibrillation, Heart Failure, COPD, Diabetes Mellitus, Deep Vein Thrombosis (DVT), GERD/Reflux, Hyperlipidemia, Hypertension, Osteoarthritis (OA), Pneumonia, Renal Disease, Respiratory Disorder, Rheumatoid Arthritis (RA), Sleep Apnea/CPAP/BIPAP, Thyroid Disorder Additional Past Medical History / Comment(s): Pt recently admitted to [facility] on 07/06/19 with pressure injury bilateral heels/gangrene, acute on chronic chf, cellulitis L lower extremity, bilateral pleural effusion. Other hx: Chronic respiratory failure, home O2 at 2L/NC, possible mild pulmonary HTN, JOSR but no longer uses her device, lower extremity edema/redness/cellulitis, bilateral heel wounds,pt states she currently has a decubitus on her coccyx, IDDM type II, neuropathy bilateral hands/feet, CKD stage III, pt states she has had "bleeding in the kidneys" in the past, anemia, UTI with sepsis, incontinent of urine and occasionally stool, migraines, gout, hypothyroid, vertigo. History of Any Multi-Drug Resistant Organisms: Other MDRO Past Surgical History: Heart Catheterization, Hysterectomy, Joint Replacement, Orthopedic Surgery Additional Past Surgical History / Comment(s): L heel debridement with bx, midline, cardiac cath 2017-treated medically, R total knee replacement, L foot heel spur, sanjana cataracts with lens implants, cystoscopy, EGD, colonoscopy. Past Anesthesia/Blood Transfusion Reactions: No Reported Reaction Past Psychological History: No Psychological Hx Reported Additional Psychological History / Comment(s): since 1997. Pt currently at [facility] for rehab. She states she is always in bed d/t bilateral heel wounds. No travel. experience. No animal exposures. stopped smoking several years ago no history of recreational drug use Smoking Status: Never smoker Past Alcohol Use History: None Reported Additional Past Alcohol Use History / Comment(s): Pt started smoking in 1953 and quit in 2013. Past Drug Use History: None Reported - Past Family History Mother Family Medical History: Renal Disease Father Family Medical History: Coronary Artery Disease (CAD) Medications and Allergies Home Medications Medication Instructions Recorded Confirmed Type Potassium Chloride ER [K-Dur 20] 40 meq PO DAILY@1700 03/22/18 02/10/20 History Ubidecarenone [Co Q-10] 200 mg PO DAILY@1700 03/22/18 02/10/20 History Atorvastatin [Lipitor] 40 mg PO HS@209902/10/1920 History Liothyronine Sodium [Cytomel] 5 mcg PO DAILY@0600 02/10/19 02/10/20 History allopurinoL [Zyloprim] 300 mg PO DAILY@0800 02/10/19 02/10/20 History Levothyroxine Sodium [Synthroid] 88 mcg PO DAILY@0600 07/06/19 02/10/20 History Meclizine [Antivert] 12.5 mg PO TID@0800,1400,2100 07/06/19 02/10/20 History Ipratropium-Albuterol Nebulize 3 ml INHALATION RT-Q4H ml 07/12/19 02/10/20 Rx [Duoneb 0.5 mg-3 mg/3 ml Soln] Benzocaine/Menthol Lozeng [Cepacol 1 lozenge MUCOUS MEM Q6H PRN 07/13/19 02/10/20 History lozenge] INSULIN LISPRO (humaLOG) [humaLOG] See Protocol SQ ACHS 07/13/19 02/10/20 His tory Ipratropium-Albuterol Nebulize 3 ml INHALATION RT-Q4H PRN 07/13/19 02/10/20 History [Duoneb 0.5 mg-3 mg/3 ml Soln] Isosorbide Dinitrate 30 mg PO DAILY@0800 07/13/19 02/10/20 History Magnesium Hydroxide [Milk of 7,200 mg PO DAILY PRN 07/13/19 02/10/20 History Magnesia Concentrate] Na Phos,M-B/Na Phos,Di-Ba [Fleet 133 ml RECTAL DAILY PRN 07/13/19 02/10/20 History Adult] bisacodyL [Dulcolax] 10 mg RECTAL DAILY PRN 07/13/19 02/10/20 History guaiFENesin-DM 100-10MG/5ML 10 ml PO Q6H PRN ml 07/19/19 02/10/20 Rx [Robitussin DM] Acetaminophen Tab [Tylenol] 650 mg PO Q4HR PRN 09/21/19 02/10/20 History Docusate [Colace] 100 mg PO DAILY@0800 09/21/19 02/10/20 History Furosemide [Lasix] 40 mg PO BID@0800,1700 09/21/19 02/10/20 History Insulin Detemir (Levemir) [Levemir] 30 unit SQ HS@2100 09/21/19 02/10/20 History Pantoprazole Sodium [Protonix] 40 mg PO DAILY@0600 09/21/19 02/10/20 History Metoprolol Tartrate [Lopressor] 50 mg PO BID@0800,1700 tab 09/26/19 02/10/20 Rx Tiotropium 18 Mcg/Puff [Spiriva] 1 puff INHALATION RT-DAILY inhaler 09/26/19 02/10/20 Rx traMADol HCL [Ultram] 50 mg PO Q8H PRN #9 tab 09/26/19 02/10/20 Rx Apixaban [Eliquis] 2.5 mg PO BID@0800,1700 02/10/20 02/10/20 History Colloidal Oatmeal [Eucerin Eczema 1 applic TOPICAL DAILY 02/10/20 02/10/20 History Relief] Mag Hydrox/Al Hydrox/Simeth 15 ml PO Q6H PRN 02/10/20 02/10/20 History [Maalox] Allergies Allergy/AdvReac Type Severity Reaction Status Date / Time iron Allergy Rash/Hives Verified 02/10/20 07:39 Sulfa (Sulfonamide Allergy Rash/Hives Verified 02/10/20 07:39 Antibiotics) Tetanus Vaccines and Toxoid Allergy Swelling Verified 02/10/20 07:39 Physical Exam Vitals: Vital Signs Temp Pulse Pulse Resp BP BP Pulse Ox 02/10/20 08:00 75 16 02/10/20 07:47 97.9 F 75 16 138/88 95 02/10/20 02:51 16 02/10/20 02:25 97.9 F 81 16 139/88 99 02/10/20 01:37 20 02/10/20 00:48 98.3 F 83 20 140/83 96 Intake and Output 02/09/20 02/10/20 02/10/20 22:59 06:59 14:59 Intake Total 80 180 Output Total 900 Balance -820 180 Intake: Intake, IV Titration 80 Amount Sodium Chloride 0.9% 1, 80 000 ml @ 20 mls/hr IV . Q24H [facility] Rx#:[id number] Oral 180 Output: Urine 900 Other: Voiding Method Indwelling Catheter Indwelling Catheter Weight 118.478 kg GENERAL EXAM: Alert, very pleasant, 79-year-old white female, resting in bed, 3 L of oxygen with a pulse ox of 95% comfortable in no apparent distress. HEAD: Normocephalic/atraumatic. EYES: Normal reaction of pupils, equal size. Conjunctiva pink, sclera white. NOSE: Clear with pink turbinates. THROAT: No erythema or exudates. NECK: No masses, no JVD, no thyroid enlargement, no adenopathy. CHEST: No chest wall deformity. Symmetrical expansion. LUNGS: Equal air entry with diffuse wheezes and rhonchi CVS: Regular rate and rhythm, normal S1 and S2, no gallops, no murmurs, no rubs ABDOMEN: Soft, nontender. No hepatosplenomegaly, normal bowel sounds, no guarding or rigidity. EXTREMITIES: No clubbing, no edema, no cyanosis, 2+ pulses and upper and lower extremities. MUSCULOSKELETAL: Muscle strength and tone normal. SPINE: No scoliosis or deformity SKIN: No rashes CENTRAL NERVOUS SYSTEM: Alert and oriented -3. No focal deficits, tone is normal in all 4 extremities. PSYCHIATRIC: Alert and oriented -3. Appropriate affect. Intact judgment and insight. Results - Laboratory Findings CBC and BMP: 02/10/20 01:24 02/10/20 01:24 PT/INR, D-dimer PT 10.2 sec (9.0-12.0) 02/10/20 01:24 INR 1.0 (<1.2) 02/10/20 01:24 Abnormal lab findings: Abnormal Labs 02/10/20 02/10/20 01:24 01:24 WBC 10.9 H Carbon Dioxide 37 H BUN 29 H Glucose 126 H Total Protein 5.9 L - Diagnostic Findings Chest x-ray: report reviewed, image reviewed Additional studies: EKG reviewed Assessment and Plan Plan: Assessment: #1. Dyspnea acute on chronic, mild febrile illness, related to COVID 19 pneumonia, chest x-ray showed bilateral pneumonia and atelectasis in the right midlung and left lower lobe and pleural effusions. A component of acute COPD exacerbation #2. Chronic obstructive pulmonary disease, with chronic hypoxic respiratory failure, usually wears 2 L of oxygen #3. Chronic A. fib on Eliquis #4. Chronic diastolic CHF, with an EF of 50-55%, moderate concentric LVH, moderate to severe mitral regurgitation, severe tricuspid regurgitation, moderately severe pulmonary hypertension and right-sided pressures of 52.3 mmHg #5. His history of DVT #6. Diabetes mellitus with neuropathy #7. Hypertension #8. Hyperlipidemia #9. History of obstructive sleep apnea not on CPAP #10. history of urinary tract infections with sepsis #11. Hx medical debility, patient is a resident of a local [facility] Plan: Continue current medical treatment, continue the antibiotics, repeat Covid 19 serology is still pending, patient has been afebrile, continue nebulized bronchodilators. Continue IV steroids, patient is bronchospastic, and congested, continue Mucinex. From a true markers are not elevated, awaiting results of the Covid 19 serology. We are told that patient was tested positive at the [place] [facility]. Do not think patient needs Remdesivir right now, as her symptoms are mild, and her oxygenation appears to be stable, her FiO2 is not significantly increased from her home FiO2. Will continue to follow inflammatory markers, repeat chest x-ray in the morning. I performed a history & physical examination of the patient and discussed their management with my nurse practitioner, Sana Villalta. I reviewed the nurse practitioner's note and agree with the documented findings and plan of care. Lung sounds are positive for diffuse wheezes throughout the lung whitt. The findings and the impression was discussed with the patient. I attest to the documentation by the nurse practitioner. Time with Patient: Greater than 30
[2020-02-10] MEDS: METOPROLOL TARTRATE 50 MG TAB PO SCH (15:33)
[2020-02-10] MEDS: APIXABAN 2.5 MG TABLET PO SCH (15:33)
[2020-02-10] MEDS: FUROSEMIDE 40 MG TAB PO SCH (15:33)
[2020-02-10] MEDS: POTASSIUM CHLORIDE ER 20 MEQ TAB.ER PO SCH (15:43)
[2020-02-10] MEDS: MECLIZINE 12.5 MG TAB PO SCH ×2 (16:12→21:29)
[2020-02-10] MEDS: IPRATROPIUM-ALBUTEROL 3 ML NEB INHALATION SCH ×3 (16:13→20:39)
[2020-02-10] MEDS ORDERED: FUROSEMIDE 10 MG/ML 4 ML VIAL IV STA (16:35)
[2020-02-10] MEDS ORDERED: NON FORMULARY DRUG (Ubidecarenone [Co Q-10] 200 MG) PO SCH (17:00)
[2020-02-10 17:24] LABS: Glucose,Whole Blood 187 mg/dL (75-99)
[2020-02-10] MEDS: INSULIN ASPART (NovoLOG) 100 UNIT/ML VIAL SQ SCH ×2 (17:44→21:28)
[2020-02-10] MEDS: ATORVASTATIN 40 MG TAB PO SCH (21:29)
[2020-02-10] MEDS: INSULIN DETEMIR (LEVEMIR) 100 UNIT/ML SYR SQ SCH (21:29)
[2020-02-10 21:42] LABS: Glucose,Whole Blood 204 mg/dL (75-99)
--- NOTE | 2020-02-10 23:03 | P.CONS ---
History of Present Illness - Reason for Consult Consult date: 02/10/20 Pneumonia Requesting physician: Dwain Weathers - Chief Complaint Positive Covid19 test - History of Present Illness Patient is 79-year-old female resident of local detention, apparently there was an employee that tested positive for Covid19, subsequently all resident has been tested and the patient just came back positive subsequently the patient has been sent to [facility] for further evaluation, patient has been complaining of shortness of breath that apparently has been getting worse for the last few days, but denies having any chest pain patient did have a cough which is moderate intensity with occasional sputum or hemoptysis patient denies having any URI symptoms denies any nausea and vomiting denies any abdominal pain no diarrhea no urinary symptoms previous history of rash also with a history which are currently healed and the patient will symptoms referable to the lower extremity with these symptoms the patient has been evaluated by the physician on arrival to the ER the patient has been afebrile patient did have a normal white count and no lymphopenia liver enzymes are normal patient did have a normal CRP chest x-ray reported bilateral pneumonia patient has been admitted to the hospital for further workup currently has been started on Rocephin and Zithromax Review of Systems Positive point has been mentioned in the HPI rest of the systems are negative Past Medical History Past Medical History: Atrial Fibrillation, Heart Failure, COPD, Diabetes Mellitu s, Deep Vein Thrombosis (DVT), GERD/Reflux, Hyperlipidemia, Hypertension, Osteoarthritis (OA), Pneumonia, Renal Disease, Respiratory Disorder, Rheumatoid Arthritis (RA), Sleep Apnea/CPAP/BIPAP, Thyroid Disorder Additional Past Medical History / Comment(s): Pt recently admitted to [facility] on 07/06/19 with pressure injury bilateral heels/gangrene, acute on chronic chf, cellulitis L lower extremity, bilateral pleural effusion. Other hx: Chronic respiratory failure, home O2 at 2L/NC, possible mild pulmonary HTN, JOSR but no longer uses her device, lower extremity edema/redness/cellulitis, bilateral heel wounds,pt states she currently has a decubitus on her coccyx, IDDM type II, neuropathy bilateral hands/feet, CKD stage III, pt states she has had "bleeding in the kidneys" in the past, anemia, UTI with sepsis, incontinent of urine and occasionally stool, migraines, gout, hypothyroid, vertigo. History of Any Multi-Drug Resistant Organisms: Other MDRO Past Surgical History: Heart Catheterization, Hysterectomy, Joint Replacement, Orthopedic Surgery Additional Past Surgical History / Comment(s): L heel debridement with bx, midline, cardiac cath 2017-treated medically, R total knee replacement, L foot heel spur, sanjana cataracts with lens implants, cystoscopy, EGD, colonoscopy. Past Anesthesia/Blood Transfusion Reactions: No Reported Reaction Past Psychological History: No Psychological Hx Reported Additional Psychological History / Comment(s): since 1997. Pt currently at [facility] for rehab. She states she is always in bed d/t bilateral heel wounds. No travel. experience. No animal exposures. stopped smoking several years ago no history of recreational drug use Smoking Status: Never smoker Past Alcohol Use History: None Reported Additional Past Alcohol Use History / Comment(s): Pt started smoking in 1952 and quit in 2013. Past Drug Use History: None Reported - Past Family History Mother Family Medical History: Renal Disease Father Family Medical History: Coronary Artery Disease (CAD) Medications and Allergies Home Medications Medication Instructions Recorded Confirmed Type Potassium Chloride ER [K-Dur 20] 40 meq PO DAILY@1700 03/22/18 02/10/20 History Ubidecarenone [Co Q-10] 200 mg PO DAILY@1700 03/22/18 02/10/20 History Atorvastatin [Lipitor] 40 mg PO HS@209902/10/19 02/10/20 History Liothyronine Sodium [Cytomel] 5 mcg PO DAILY@0600 02/10/19 02/10/20 History allopurinoL [Zyloprim] 300 mg PO DAILY@0800 02/10/19 02/10/20 History Levothyroxine Sodium [Synthroid] 88 mcg PO DAILY@0600 07/06/19 02/10/20 History Meclizine [Antivert] 12.5 mg PO TID@0800,1400,2100 07/06/19 02/10/20 History Ipratropium-Albuterol Nebulize 3 ml INHALATION RT-Q4H ml 07/12/19 02/10/20 Rx [Duoneb 0.5 mg-3 mg/3 ml Soln] Benzocaine/Menthol Lozeng [Cepacol 1 lozenge MUCOUS MEM Q6H PRN 07/13/19 02/10/20 History lozenge] INSULIN LISPRO (humaLOG) [humaLOG] See Protocol SQ ACHS 07/13/19 02/10/20 History Ipratropium-Albuterol Nebulize 3 ml INHALATION RT-Q4H PRN 07/13/19 02/10/20 History [Duoneb 0.5 mg-3 mg/3 ml Soln] Isosorbide Dinitrate 30 mg PO DAILY@0800 07/13/19 02/10/20 History Magnesium Hydroxide [Milk of 7,200 mg PO DAILY PRN 07/13/19 02/10/20 History Magnesia Concentrate] Na Phos,M-B/Na Phos,Di-Ba [Fleet 133 ml RECTAL DAILY PRN 07/13/19 02/10/20 History Adult] bisacodyL [Dulcolax] 10 mg RECTAL DAILY PRN 07/13/19 02/10/20 History guaiFENesin-DM 100-10MG/5ML 10 ml PO Q6H PRN ml 07/19/19 02/10/20 Rx [Robitussin DM] Acetaminophen Tab [Tylenol] 650 mg PO Q4HR PRN 09/21/19 02/10/20 History Docusate [Colace] 100 mg PO DAILY@0800 09/21/19 02/10/20 History Furosemide [Lasix] 40 mg PO BID@0800,1700 09/21/19 02/10/20 History Insulin Detemir (Levemir) [Levemir] 30 unit SQ HS@2100 09/21/19 02/10/20 History Pantoprazole Sodium [Protonix] 40 mg PO DAILY@0600 09/21/19 02/10/20 History Metoprolol Tartrate [Lopressor] 50 mg PO BID@0800,1700 tab 09/26/19 02/10/20 Rx Tiotropium 18 Mcg/Puff [Spiriva] 1 puff INHALATION RT-DAILY inhaler 09/26/19 02/10/20 Rx traMADol HCL [Ultram] 50 mg PO Q8H PRN #9 tab 09/26/19 02/10/20 Rx Apixaban [Eliquis] 2.5 mg PO BID@0800,1700 02/10/20 02/10/20 History Colloidal Oatmeal [Eucerin Eczema 1 applic TOPICAL DAILY 02/10/20 02/10/20 History Relief] Mag Hydrox/Al Hydrox/Simeth 15 ml PO Q6H PRN 02/10/20 02/10/20 History [Maalox] Allergies Allergy/AdvReac Type Severity Reaction Status Date / Time iron Allergy Rash/Hives Verified 02/10/20 07:39 Sulfa (Sulfonamide Allergy Rash/Hives Verified 02/10/20 07:39 Antibiotics) Tetanus Vaccines and Toxoid Allergy Swelling Verified 02/10/20 07:39 Physical Exam Vitals: Vital Signs Temp Pulse Pulse Resp BP BP Pulse Ox 02/10/20 08:00 75 16 02/10/20 07:47 97.9 F 75 16 138/88 95 02/10/20 02:51 16 02/10/20 02:25 97.9 F 81 16 139/88 99 02/10/20 01:37 20 02/10/20 00:48 98.3 F 83 20 140/83 96 Intake and Output 02/09/20 02/10/20 02/10/20 22:59 06:59 14:59 Intake Total 80 380 Output Total 900 Balance -820 380 Intake: Intake, IV Titration 80 Amount Sodium Chloride 0.9% 1, 80 000 ml @ 20 mls/hr IV . Q24H [facility] Rx#:[id number] Oral 380 Output: Urine 900 Other: Voiding Method Indwelling Catheter Indwelling Catheter Weight 118.478 kg GENERAL DESCRIPTION: An elderly female lying in bed, no distress. No tachypnea or accessory muscle of respiration use. HEENT: Shows Pallor , no scleral icterus. Oral mucous membrane is dry. No pharyngeal erythema or thrush NECK: Trachea central, no thyromegaly. LUNGS: Unlabored breathing. It is best on the base. No wheeze or crackle. HEART: S1, S2, regular rate and rhythm. No loud murmur ABDOMEN: Soft, no tenderness , guarding or rigidity, no organomegaly EXTREMITIES: Diffuse swelling lower extremity no redness SKIN: No rash, no masses palpable. NEUROLOGICAL: The patient is awake, alert, oriented x3, mood and affect normal. Results CBC & Chem 7: 02/10/20 01:24 02/10/20 01:24 Labs: Abnormal Lab Results - Last 24 Hours (Table) 02/10/20 02/10/20 Range/Units 01:24 01:24 WBC 10.9 H (3.8-10.6) k/uL Carbon Dioxide 37 H (22-30) mmol/L BUN 29 H (7-17) mg/dL Glucose 126 H (74-99) mg/dL Total Protein 5.9 L (6.3-8.2) g/dL Assessment and Plan Assessment: 1- patient has been brought into the hospital after the patient did tested positive for Covid19 at the detention , this patient who do have respiratory symptoms and to have abnormal chest x-ray however the patient currently do not have any lymphopenia elevated liver enzymes or the elevated CRP which is commonly seen in patients with Covid19 . Question of possible possibly positive test And the patient underlying respiratory symptoms could be related to COPD exacerbation with tracheobronchitis and question of community-acquired pneumonia (1) Lab test positive for detection of COVID-19 virus Current Visit: Yes Status: Acute Code(s): U07.1 - COVID-19 SNOMED Code(s): 672424433 (2) Bilateral pneumonia Current Visit: Yes Status: Acute Code(s): J18.9 - PNEUMONIA, UNSPECIFIED ORGANISM SNOMED Code(s): 333865691 Plan: 1- we will wait for the nasopharyngeal swab for PCR Covid19 2-hold on adding Redemsivir or treatment specifically to Covid 19 3- try to obtain sputum for Gram stain and culture 4- Rocephin 1 g daily and Zithromax to continue We will follow on clinical condition and cultures to further adjust medication if needed Thank you for this consultation will follow this patient with you Time with Patient: Greater than 30
[2020-02-11] MEDS: IPRATROPIUM-ALBUTEROL 3 ML NEB INHALATION SCH ×6 (00:09→20:42)
[2020-02-11] MEDS: methylPREDNISolone SOD SUCCI 125 MG/2 ML VIAL IV SCH ×4 (00:15→23:33)
[2020-02-11] MEDS: SODIUM CHLORIDE 0.9% 1,000 ML IV SCH (02:03)
[2020-02-11] MEDS: AZITHROMYCIN 500 MG TAB PO SCH (02:17)
[2020-02-11] MEDS: LEVOTHYROXINE 88 MCG TAB PO SCH (06:08)
[2020-02-11] MEDS: PANTOPRAZOLE 40 MG TABLET PO SCH (06:08)
[2020-02-11] MEDS: LIOTHYRONINE SODIUM 5 MCG TAB PO SCH (06:08)
[2020-02-11 07:06] LABS: Glucose,Whole Blood 216 mg/dL (75-99)
[2020-02-11] MEDS: INSULIN ASPART (NovoLOG) 100 UNIT/ML VIAL SQ SCH ×4 (07:54→20:39)
[2020-02-11] MEDS: allopurinoL 300 MG TAB PO SCH (07:55)
[2020-02-11] MEDS: APIXABAN 2.5 MG TABLET PO SCH ×2 (07:55→17:14)
[2020-02-11] MEDS: FUROSEMIDE 40 MG TAB PO SCH ×2 (07:55→17:14)
[2020-02-11] MEDS: DOCUSATE 100 MG CAP PO SCH (07:55)
[2020-02-11] MEDS: MECLIZINE 12.5 MG TAB PO SCH ×3 (07:56→20:38)
[2020-02-11] MEDS: MINERAL OIL-WHITE PETROLATUM 120 GM JAR TOPICAL SCH (07:56)
[2020-02-11] MEDS: ISOSORBIDE DINITRATE 10 MG TAB PO SCH (07:56)
[2020-02-11] MEDS ORDERED: NON FORMULARY DRUG (Tiotropium 18 Mcg/Puff 1 PUFF) INHALATION SCH (08:00)
--- NOTE | 2020-02-11 11:11 | P.PN ---
Subjective Progress Note Date: 02/11/20 Principal diagnosis: Febrile illness, shortness of breath 79-year-old white female patient, who resides in a local [facility], with past medical history of chronic A. fib, chronic CHF, COPD with chronic hypoxic respiratory failure, on home O2 at 2 L, diabetes mellitus type 2, chronic kidney disease stage III, who apparently was exposed to COVID19 in the [facility], and tested positive. Patient was having a low-grade fever, with mild symptoms, normal chest discomfort, no cough. She was brought into the emergency department for evaluation, chest x-ray showed bilateral pneumonia and atelectasis in the right midlung and left lower lobe. Lab work showed a white blood cell count of 10.9, hemoglobin of 11.5, INR is 1.0, CO2 is 37, missed the electrolytes are within normal limits, B1 is 29 creatinine 0.9. Plasma lactic acid is 1.1, LFTs are within normal limits, ferritin level is normal at 53.6, LDH is within normal limits at 509, CRP is less than 5, Procalcitonin at the level is negative at 0.06. Patient is afebrile while in hospital, she is on 3 L of oxygen, her pulse ox of 95%, she sounded bronchospastic, and congested, and bringing up some colored phlegm. She's been started on azithromycin and Rocephin, breathing treatments. The patient is seen today 02/11/2020 in follow-up on the regular medical floor. She is currently resting quite comfortably in bed. Awake and alert in no acute distress. Maintaining O2 saturations in the 90s on 3 L/m per nasal cannula. She's been afebrile. Hemodynamically stable. Covid screen here was negative. Glucose 216. Blood culture revealed no growth. She remains on ceftriaxone and azithromycin, bronchodilators, steroids. Anticoagulated with Eliquis. Objective - Vital Signs Vital signs: Vital Signs Temp 96.1 F L 02/11/20 07:45 Pulse 82 02/11/20 08:40 Resp 18 02/11/20 07:45 BP 147/64 02/11/20 07:45 Pulse Ox 94 L 02/11/20 07:45 Intake & Output 02/10/20 02/11/20 02/11/20 18:59 06:59 18:59 Intake Total 380 280 Output Total 5200 Balance 380 -4920 Intake: Oral 380 280 Output: Urine 5200 Other: Voiding Method Indwelling Catheter Indwelling Catheter Indwelling Catheter # Voids 1 - Exam GENERAL EXAM: Alert, very pleasant, 79-year-old female patient, resting in bed, 3 L of oxygen with a pulse ox of 94% comfortable in no apparent distress. HEAD: Normocephalic/atraumatic. EYES: Normal reaction of pupils, equal size. Conjunctiva pink, sclera white. NOSE: Clear with pink turbinates. THROAT: No erythema or exudates. NECK: No masses, no JVD, no thyroid enlargement, no adenopathy. CHEST: No chest wall deformity. Symmetrical expansion. LUNGS: Equal air entry with diffuse wheezes and rhonchi CVS: Regular rate and rhythm, normal S1 and S2, no gallops, no murmurs, no rubs ABDOMEN: Soft, nontender. No hepatosplenomegaly, normal bowel sounds, no guarding or rigidity. EXTREMITIES: No clubbing, no edema, no cyanosis, 2+ pulses and upper and lower extremities. MUSCULOSKELETAL: Muscle strength and tone normal. SPINE: No scoliosis or deformity SKIN: No rashes CENTRAL NERVOUS SYSTEM: No focal deficits, tone is normal in all 4 extremities. PSYCHIATRIC: Alert and oriented -3. Appropriate affect. Intact judgment and insight. - Labs CBC & Chem 7: 02/10/20 01:24 02/10/20 01:24 Labs: Abnormal Lab Results - Last 24 Hours (Table) 02/10/20 02/10/20 02/11/20 Range/Units 17:22 21:22 07:04 POC Glucose (mg/dL) 187 H 204 H 216 H (75-99) mg/dL Microbiology - Last 24 Hours (Table) 02/10/20 01:24 Blood Culture - Preliminary Blood No Growth after 24 hours Assessment and Plan Assessment: #1. Dyspnea acute on chronic, mild febrile illness, related to COVID 19 pneumonia, chest x-ray showed bilateral pneumonia and atelectasis in the right midlung and left lower lobe and pleural effusions. A component of acute COPD exacerbation #2. Chronic obstructive pulmonary disease, with chronic hypoxic respiratory failure, usually wears 2 L of oxygen #3. Chronic A. fib on Eliquis #4. Chronic diastolic CHF, with an EF of 50-55%, moderate concentric LVH, moderate to severe mitral regurgitation, severe tricuspid regurgitation, moderately severe pulmonary hypertension and right-sided pressures of 52.3 mmHg #5. His history of DVT #6. Diabetes mellitus with neuropathy #7. Hypertension #8. Hyperlipidemia #9. History of obstructive sleep apnea not on CPAP #10. history of urinary tract infections with sepsis #11. Hx medical debility, patient is a resident of a local ECF Plan: The patient was seen and evaluated by Dr. Celina Leal screen this admission negative Continue bronchodilators, steroids, empiric antibiotics Stable from the pulmonary standpoint Transfer to ECF once cleared medically I, the cosigning physician, performed a history & physical examination of the patient. Lungs sounds with few end expiratory wheeze, diminished. Maintaining good O2 saturations in the 90s on 3 L/m per nasal cannula. I discussed the assessment and plan of care with my nurse practitioner, Berkley Yost. I attest to the above note as dictated by her.
[2020-02-11 12:12] LABS: Glucose,Whole Blood 301 mg/dL (75-99)
--- NOTE | 2020-02-11 16:47 | PN ---
PROGRESS NOTE DATE OF SERVICE: 02/11/2020 REASON FOR FOLLOWUP: Pneumonia. INTERVAL HISTORY: Patient is currently afebrile, patient is breathing slightly comfortably. She is currently complaining of cough, not bringing up any sputum. No chest pain. No nausea, vomiting. No abdominal pain or diarrhea. PHYSICAL EXAMINATION: Blood pressure 147/64 with a pulse of 87, temperature 96.1. She is 94% on 2 L. GENERATION DESCRIPTION: An elderly female lying in bed in no distress. RESPIRATORY SYSTEM: Unlabored breathing, decreased intensity of breath sounds. No wheeze. HEART: S1, S2. Regular rate and rhythm. ABDOMEN: Soft, nontender. LABS: Blood culture has been negative. DIAGNOSTIC IMPRESSION AND PLAN: Patient with shortness of breath, evidence of bilateral pneumonia, possible bacterial. Covid 19 has been ruled out. Patient covered with Rocephin and Zithromax, to continue. Try to obtain a sputum to narrow down antibiotics. Continue supportive care. MMODL / IJN: [id number] /
[2020-02-11 16:51] LABS: Glucose,Whole Blood 329 mg/dL (75-99)
[2020-02-11] MEDS: POTASSIUM CHLORIDE ER 20 MEQ TAB.ER PO SCH (17:13)
[2020-02-11] MEDS: METOPROLOL TARTRATE 50 MG TAB PO SCH (17:13)
--- NOTE | 2020-02-11 17:43 | P.PN ---
Subjective Progress Note Date: 02/11/20 79-year-old female from [facility] with known for the last year with past medical history of COPD, CHF, DVT or thrombosis, atrophy fibrillation with RVR, history of rheumatoid arthritis, obstructive sleep apnea on BiPAP, recurrent hospitalization for respiratory failure and bilateral pneumonia with recurrent episode of COPD exacerbation. Patient was hospitalized lost few month ago for a COPD exacerbation and fluid overload was treated and done well. She has been in [facility] for the last 3 month period Patient was tested positive for the Covid 19 yesterday through screening all resident. Patient was having low-grade temperature with mild symptoms, no exposure, patient has been in quarantine since August has not left the place and has not exposed ready for family even through her window visit. No other resident in the same waiting tested positive[facility] and had Covid 19 PCR test pending at this point. Review her chest x-ray showed bilateral pneumonia with worsening fluid overload and COPD exacerbation patient was mildly hypoxic with picture bilateral pneumonitis, patient was started on Rocephin and azithromycin initially patient will be seen pulmonary and will try to start her on Remdesivir if agreeable by pulmonary and infectious disease. patient examined bedside continues to be short of breath on exertion. Denies any chest pain breathing difficulty and requires 3 L of oxygen at rest patient wears 2 L of oxygen at baseline. Vitals are stable with a temperature of 98.2 pulse 101 and respiratory rate 16 blood pressure 123/85 oxygen saturation 95% on 2 L. Covid testing came back negative. ESR and CRP are negative lactic acid normal. Was treated for mild COPD exacerbation with pneumonia. Continue Solu-Medrol 60 every 8 hours and Rocephin and azithromycin. Chest x-ray concerning for bilateral pneumonia with possible pleural effusions concerning for CHF as proBNP ordered. Continue Lasix is 40 mg by mouth twice a day. Review of Systems CONSTITUTIONAL: Well-developed morbidly overweight in mild respiratory distress. EYES: No icterus sclerae, no conjunctivitis. EARS, NOSE, MOUTH, THROAT, and FACE: No sore throat, lymphadenopathy, carotid bruits or deformity. RESPIRATORY: Positive shortness of breath cough no wheezes CARDIOVASCULAR: Positive PND orthopnea GASTROINTESTINAL: No Abd pain, Nausea or vomiting, no Diarrhea or constipation, No GI Bleed, no distention or masses. GENITOURINARY: Negative for Hematuria or UTI, no kidney stones. Mild incontinence INTEGUMENT/BREAST: Negative for any muscular injury with mild osteoarthritis.. HEMATOLOGIC/LYMPHATIC: Negative for bleed or purpura. MUSCULOSKELTAL: Generalized back pain and muscle pain with arthralgia. Chronic edema. NEURLOGICAL: No LOC, Sz or syncope, blurred vision dizziness or abnormality.. BEHAVIORAL/PSYCH: Negative. ENDOCRINE: Negative. Objective - Vital Signs Vital signs: Vital Signs Temp 98.2 F 02/11/20 15:00 Pulse 76 02/11/20 16:43 Resp 16 02/11/20 15:00 BP 123/85 02/11/20 15:00 Pulse Ox 95 02/11/20 15:00 Intake & Output 02/10/20 02/11/20 02/11/20 18:59 06:59 18:59 Intake Total 380 280 540 Output Total 5200 Balance 380 -4920 540 Intake: Oral 380 280 540 Output: Urine 5200 Other: Voiding Method Indwelling Catheter Indwelling Catheter Indwelling Catheter # Voids 1 - Exam - Constitutional General appearance: cooperative, no acute distress, obese sleepy on 3 L of oxygen with 95% saturation no acute distress - EENT Eyes: anicteric sclerae, conjunctiva pink, normal appearance ENT: hearing grossly normal - Neck Neck: no lymphadenopathy, normal ROM, no other, no rigidity, no stridor, no thy romegaly - Respiratory Respiratory: bilateral: Decreased air entry with minimal wheezes - Cardiovascular Rhythm: Irregularly irregular Heart sounds: normal: S1, S2 Abnormal Heart Sounds: Positive systolic murmur, no diastolic murmur, no rub, no S3 Gallop, no S4 Gallop, no click - Gastrointestinal General gastrointestinal: normal bowel sounds, soft and nontender - Integumentary Integumentary: no rash 1+ pitting edema bilateral lower extremity - Neurologic Neurologic: no focal deficit tone is normal in all 4 extremities - Musculoskeletal Musculoskeletal: Gait not assessed strength equal bilaterally generalized weakness - Psychiatric Psychiatric: A&O x's 3, appropriate affect - Labs CBC & Chem 7: 02/10/20 01:24 02/10/20 01:24 Labs: Abnormal Lab Results - Last 24 Hours (Table) 02/10/20 02/11/20 02/11/20 Range/Units 21:22 07:04 12:10 POC Glucose (mg/dL) 204 H 216 H 301 H (75-99) mg/dL 02/11/20 Range/Units 16:49 POC Glucose (mg/dL) 329 H (75-99) mg/dL Microbiology - Last 24 Hours (Table) 02/10/20 01:24 Blood Culture - Preliminary Blood No Growth after 24 hours Assessment and Plan Plan: 1 acute hypoxic respiratory failure secondary to bilateral pneumonia with COPD exacerbation continues to require 3 L of oxygen baseline oxygen requirement 2 L continue Rocephin and azithromycin Solu-Medrol 80 every 8: Patient will be hospitalized, continue O2, continue updraft treatment, consult pulmonary patient will remain on updraft along with O2 and BiPAP when she is laying down or sleep. 2 bilateral pneumonitis: COVID ruled out . Continue azithromycin and Rocephin 3 COPD exacerbation: Patient will be on Solu-Medrol, updraft treatment, Pulmicort, and titrate O2. Patient lung capacity from last few admission has been extremely low. 4 A. fib with RVR: Remain on Eliquis 2.5 mg twice a day pulse rate is under control currently on metoprolol 50 mg twice a day 5 CHF: Chronic with acute component to diastolic dysfunction: BNP ordered Remain on furosemide 40 mg twice a day, continue isosorbide, continue metoprolol. 6 type 2 diabetes: Continue patient on Accu-Chek with sliding scales coverage along with long acting insulin Levemir 30 units subcutaneous at bedtime. 7 hyperlipidemia: Remain on atorvastatin 40 mg daily. 8 gout: Patient remain on Zyloprim 300 mg daily. 9 hypothyroidism: Remain on Cytomel 5 g daily along with levothyroxine 88 g a day. 10 GI prophylaxis/GERD: Remain on pantoprazole 40 mg a day. 11 chronic vascular cellulitis: Patient will be on antibiotic for now knee or thigh-high stocking and continued topical care with leg elevation and hopefully with the reduce of edema might help significantly. 12 anticoagulation: Patient is already on Eliquis 2.5 mg twice a day CODE STATUS: Full code.
[2020-02-11] MEDS: ATORVASTATIN 40 MG TAB PO SCH (20:38)
[2020-02-11] MEDS: INSULIN DETEMIR (LEVEMIR) 100 UNIT/ML SYR SQ SCH (20:38)
[2020-02-11 20:40] LABS: Glucose,Whole Blood 272 mg/dL (75-99)
[2020-02-12] MEDS: IPRATROPIUM-ALBUTEROL 3 ML NEB INHALATION SCH ×6 (00:02→19:49)
[2020-02-12] MEDS: SODIUM CHLORIDE 0.9% 1,000 ML IV SCH (01:30)
[2020-02-12] MEDS: AZITHROMYCIN 500 MG TAB PO SCH (01:30)
[2020-02-12] MEDS: LEVOTHYROXINE 88 MCG TAB PO SCH (05:30)
[2020-02-12] MEDS: PANTOPRAZOLE 40 MG TABLET PO SCH (05:30)
[2020-02-12 06:51] LABS: Glucose,Whole Blood 198 mg/dL (75-99)
[2020-02-12] MEDS: INSULIN ASPART (NovoLOG) 100 UNIT/ML VIAL SQ SCH ×4 (07:29→20:54)
[2020-02-12] MEDS: methylPREDNISolone SOD SUCCI 125 MG/2 ML VIAL IV SCH (07:29)
[2020-02-12] MEDS: FUROSEMIDE 40 MG TAB PO SCH ×2 (07:30→16:10)
[2020-02-12] MEDS: LIOTHYRONINE SODIUM 5 MCG TAB PO SCH (07:30)
[2020-02-12] MEDS: DOCUSATE 100 MG CAP PO SCH (07:30)
[2020-02-12] MEDS: allopurinoL 300 MG TAB PO SCH (07:30)
[2020-02-12] MEDS: METOPROLOL TARTRATE 50 MG TAB PO SCH ×2 (07:30→16:10)
[2020-02-12] MEDS: ISOSORBIDE DINITRATE 10 MG TAB PO SCH (07:30)
[2020-02-12] MEDS: APIXABAN 2.5 MG TABLET PO SCH ×2 (07:30→16:10)
[2020-02-12] MEDS: MECLIZINE 12.5 MG TAB PO SCH ×3 (07:31→20:54)
[2020-02-12 08:59] LABS: Basophils % (A) 0 %; Eosinophils % (A) 0 %; HCT 40.4 % (34.0-46.0); HGB 12.5 gm/dL (11.4-16.0); Hypochromasia Marked; Lymphocytes # (A) 0.8 k/uL (1.0-4.8); Lymphocytes % (A) 4 %; MCH 30.2 pg (25.0-35.0); MCHC 30.9 g/dL (31.0-37.0); MCV 97.8 fL (80.0-100.0); Macrocytosis Slight; Mean Platelet Volume 9.1; Monocytes # (A) 0.4 k/uL (0-1.0); Monocytes % (A) 2 %; Neutrophils # (A) 20.5 k/uL (1.3-7.7); Neutrophils % (A) 94 %; Platelet Count 226 k/uL (150-450); RBC 4.13 m/uL (3.80-5.40); RDW 15.2 % (11.5-15.5); WBC 21.9 k/uL (3.8-10.6)
[2020-02-12 09:08] LABS: Calcium 10.3 mg/dL (8.4-10.2); Potassium 3.9 mmol/L (3.5-5.1); Total Bilirubin 0.4 mg/dL (0.2-1.3); Total Protein 6.3 g/dL (6.3-8.2)
[2020-02-12] MEDS: MINERAL OIL-WHITE PETROLATUM 120 GM JAR TOPICAL SCH (09:14)
--- NOTE | 2020-02-12 10:30 | P.PN ---
Subjective Progress Note Date: 02/12/20 Principal diagnosis: Febrile illness, shortness of breath 79-year-old white female patient, who resides in a local [facility], with past medical history of chronic A. fib, chronic CHF, COPD with chronic hypoxic respiratory failure, on home O2 at 2 L, diabetes mellitus type 2, chronic kidney disease stage III, who apparently was exposed to COVID19 in the half-way, and tested positive. Patient was having a low-grade fever, with mild symptoms, normal chest discomfort, no cough. She was brought into the emergency department for evaluation, chest x-ray showed bilateral pneumonia and atelectasis in the right midlung and left lower lobe. Lab work showed a white blood cell count of 10.9, hemoglobin of 11.5, INR is 1.0, CO2 is 37, missed the electrolytes are within normal limits, B1 is 29 creatinine 0.9. Plasma lactic acid is 1.1, LFTs are within normal limits, ferritin level is normal at 53.6, LDH is within normal limits at 509, CRP is less than 5, Procalcitonin at the level is negative at 0.06. Patient is afebrile while in hospital, she is on 3 L of oxygen, her pulse ox of 95%, she sounded bronchospastic, and congested, and bringing up some colored phlegm. She's been started on azithromycin and Rocephin, breathing treatments. The patient is seen today 02/11/2020 in follow-up on the regular medical floor. She is currently resting quite comfortably in bed. Awake and alert in no acute distress. Maintaining O2 saturations in the 90s on 3 L/m per nasal cannula. She's been afebrile. Hemodynamically stable. Covid screen here was negative. Glucose 216. Blood culture revealed no growth. She remains on ceftriaxone and azithromycin, bronchodilators, steroids. Anticoagulated with Eliquis. Patient is seen today 02/12/2020 in follow-up on the regular medical floor. She is awake and alert in no acute distress. Resting comfortably in bed. No worsening shortness of breath, cough or congestion. Still some dyspnea with minimal exertion. Blood culture reveals no growth. White count 21.9. Hemoglobin 12.5. Sodium 142. Potassium 3.9. Creatinine 0.86. She remains on ceftriaxone and azithromycin. Continued on bronchodilators. Anticoagulated with Eliquis. Objective - Vital Signs Vital signs: Vital Signs Temp 97.9 F 02/12/20 07:00 Pulse 64 02/12/20 07:30 Resp 18 02/12/20 07:00 BP 156/94 02/12/20 07:00 Pulse Ox 94 L 02/12/20 07:00 Intake & Output 02/11/20 02/12/20 02/12/20 18:59 06:59 18:59 Intake Total 540 1510 Output Total 200 Balance 540 1310 Intake: Intake, IV Titration 310 Amount Sodium Chloride 0.9% 1, 260 000 ml @ 20 mls/hr IV . Q24H ANATOLY Rx#:[id number] cefTRIAXone 2 gm In 50 Sodium Chloride 0.9% 50 ml @ 100 mls/hr IVPB Q24H ANATOLY Rx#:[id number] Oral 540 1200 Output: Urine 200 Other: Voiding Method Indwelling Catheter Indwelling Catheter Indwelling Catheter # Voids 2 - Exam GENERAL EXAM: Alert, very pleasant, 79-year-old female patient, resting in bed, 3 L of oxygen with a pulse ox of 94% comfortable in no apparent distress. HEAD: Normocephalic/atraumatic. EYES: Normal reaction of pupils, equal size. Conjunctiva pink, sclera white. NOSE: Clear with pink turbinates. THROAT: No erythema or exudates. NECK: No masses, no JVD, no thyroid enlargement, no adenopathy. CHEST: No chest wall deformity. Symmetrical expansion. LUNGS: Equal air entry with few scattered rhonchi CVS: Regular rate and rhythm, normal S1 and S2, no gallops, no murmurs, no rubs ABDOMEN: Soft, nontender. No hepatosplenomegaly, normal bowel sounds, no guarding or rigidity. EXTREMITIES: No clubbing, no edema, no cyanosis, 2+ pulses and upper and lower extremities. MUSCULOSKELETAL: Muscle strength and tone normal. SPINE: No scoliosis or deformity SKIN: No rashes CENTRAL NERVOUS SYSTEM: No focal deficits, tone is normal in all 4 extremities. PSYCHIATRIC: Alert and oriented -3. Appropriate affect. Intact judgment and insight. - Labs CBC & Chem 7: 02/12/20 07:55 02/12/20 07:55 Labs: Abnormal Lab Results - Last 24 Hours (Table) 02/11/20 02/11/20 02/11/20 Range/Units 12:10 16:49 20:39 WBC (3.8-10.6) k/uL MCHC (31.0-37.0) g/dL Neutrophils # (1.3-7.7) k/uL Lymphocytes # (1.0-4.8) k/uL Chloride (98-107) mmol/L Carbon Dioxide (22-30) mmol/L BUN (7-17) mg/dL Glucose (74-99) mg/dL POC Glucose (mg/dL) 301 H 329 H 272 H (75-99) mg/dL Calcium (8.4-10.2) mg/dL 02/12/20 02/12/20 02/12/20 Range/Units 06:48 07:55 07:55 WBC 21.9 H (3.8-10.6) k/uL MCHC 30.9 L (31.0-37.0) g/dL Neutrophils # 20.5 H (1.3-7.7) k/uL Lymphocytes # 0.8 L (1.0-4.8) k/uL Chloride 96 L (98-107) mmol/L Carbon Dioxide 37 H (22-30) mmol/L BUN 31 H (7-17) mg/dL Glucose 205 H (74-99) mg/dL POC Glucose (mg/dL) 198 H (75-99) mg/dL Calcium 10.3 H (8.4-10.2) mg/dL Microbiology - Last 24 Hours (Table) 02/10/20 01:24 Blood Culture - Preliminary Blood No Growth after 48 hours Assessment and Plan Assessment: #1. Dyspnea acute on chronic, mild febrile illness, related to COVID 19 pneumonia, chest x-ray showed bilateral pneumonia and atelectasis in the right midlung and left lower lobe and pleural effusions. A component of acute COPD exacerbation #2. Chronic obstructive pulmonary disease, with chronic hypoxic respiratory failure, usually wears 2 L of oxygen #3. Chronic A. fib on Eliquis #4. Chronic diastolic CHF, with an EF of 50-55%, moderate concentric LVH, moderate to severe mitral regurgitation, severe tricuspid regurgitation, moderately severe pulmonary hypertension and right-sided pressures of 52.3 mmHg #5. His history of DVT #6. Diabetes mellitus with neuropathy #7. Hypertension #8. Hyperlipidemia #9. History of obstructive sleep apnea not on CPAP #10. history of urinary tract infections with sepsis #11. Hx medical debility, patient is a resident of a local [facility] Plan: The patient was seen and evaluated by Dr. Patrick Continue bronchodilators, empiric antibiotics Discontinue steroids Repeat chest x-ray in a.m. Stable from the pulmonary standpoint Transfer to ECF once cleared medically I, the cosigning physician, performed a history & physical examination of the patient. Lungs sounds with few rhonchi, diminished. Maintaining good O2 saturations in the 90s on 3 L/m per nasal cannula. I discussed the assessment and plan of care with my nurse practitioner, Berkley Yost. I attest to the above note as dictated by her.
[2020-02-12 11:31] LABS: Glucose,Whole Blood 236 mg/dL (75-99)
[2020-02-12] MEDS: POTASSIUM CHLORIDE ER 20 MEQ TAB.ER PO SCH (16:10)
[2020-02-12 16:46] LABS: Glucose,Whole Blood 240 mg/dL (75-99)
--- NOTE | 2020-02-12 16:59 | P.PN ---
Subjective Progress Note Date: 02/12/20 79-year-old female from [facility] with known for the last year with past medical history of COPD, CHF, DVT or thrombosis, atrophy fibrillation with RVR, history of rheumatoid arthritis, obstructive sleep apnea on BiPAP, recurrent hospitalization for respiratory failure and bilateral pneumonia with recurrent episode of COPD exacerbation. Patient was hospitalized lost few month ago for a COPD exacerbation and fluid overload was treated and done well. She has been in [facility] for the last 3 month period Patient was tested positive for the Covid 19 yesterday through screening all resident. Patient was having low-grade temperature with mild symptoms, no exposure, patient has been in quarantine since August has not left the place and has not exposed ready for family even through her window visit. No other resident in the same waiting tested positive. [facility] and had Covid 19 PCR test pending at this point. Review her chest x-ray showed bilateral pneumonia with worsening fluid overload and COPD exacerbation patient was mildly hypoxic with picture bilateral pneumonitis, patient was started on Rocephin and azithromycin initially patient will be seen pulmonary and will try to start her on Remdesivir if agreeable by pulmonary and infectious disease. patient examined bedside continues to be short of breath on exertion. Denies any chest pain breathing difficulty and requires 3 L of oxygen at rest patient wears 2 L of oxygen at baseline. Vitals are stable with a temperature of 98.2 pulse 101 and respiratory rate 16 blood pressure 123/85 oxygen saturation 95% on 2 L. Covid testing came back negative. ESR and CRP are negative lactic acid normal. Was treated for mild COPD exacerbation with pneumonia. Continue Solu-Medrol 60 every 8 hours and Rocephin and azithromycin. Chest x-ray concerning for bilateral pneumonia with possible pleural effusions concerning for CHF as proBNP ordered. Continue Lasix is 40 mg by mouth twice a day. patient examined bedside. Denies any cough shortness of breath dizziness or chest pain. She denies any diarrhea or constipation. Patient has been cleared from pulmonary. Vitals are stable with temp of 98 pulse 67 blood pressure 131/80, oxygen saturation 95% on 2 L. We'll plan to discharge to [facility] tomorrow Review of Systems CONSTITUTIONAL: Well-developed morbidly overweight in mild respiratory distress. EYES: No icterus sclerae, no conjunctivitis. EARS, NOSE, MOUTH, THROAT, and FACE: No sore throat, lymphadenopathy, carotid bruits or deformity. RESPIRATORY: Positive shortness of breath cough no wheezes CARDIOVASCULAR: Positive PND orthopnea GASTROINTESTINAL: No Abd pain, Nausea or vomiting, no Diarrhea or constipation, No GI Bleed, no distention or masses. GENITOURINARY: Negative for Hematuria or UTI, no kidney stones. Mild incontinen ce INTEGUMENT/BREAST: Negative for any muscular injury with mild osteoarthritis.. HEMATOLOGIC/LYMPHATIC: Negative for bleed or purpura. MUSCULOSKELTAL: Generalized back pain and muscle pain with arthralgia. Chronic edema. NEURLOGICAL: No LOC, Sz or syncope, blurred vision dizziness or abnormality.. BEHAVIORAL/PSYCH: Negative. ENDOCRINE: Negative. Objective - Vital Signs Vital signs: Vital Signs Temp 98.0 F 02/12/20 15:00 Pulse 88 02/12/20 15:07 Resp 18 02/12/20 15:00 BP 131/80 02/12/20 15:00 Pulse Ox 95 02/12/20 15:00 Intake & Output 02/11/20 02/12/20 02/12/20 18:59 06:59 18:59 Intake Total 540 1510 Output Total 200 700 Balance 540 1310 -700 Intake: Intake, IV Titration 310 Amount Sodium Chloride 0.9% 1, 260 000 ml @ 20 mls/hr IV . Q24H ANATOLY Rx#:[id number] cefTRIAXone 2 gm In 50 Sodium Chloride 0.9% 50 ml @ 100 mls/hr IVPB Q24H ANATOLY Rx#:[id number] Oral 540 1200 Output: Urine 200 700 Other: Voiding Method Indwelling Catheter Indwelling Catheter Indwelling Catheter # Voids 2 - Exam - Constitutional General appearance: cooperative, no acute distress, obese sleepy on 3 L of oxygen with 95% saturation no acute distress - EENT Eyes: anicteric sclerae, conjunctiva pink, normal appearance ENT: hearing grossly normal - Neck Neck: no lymphadenopathy, normal ROM, no other, no rigidity, no stridor, no thyromegaly - Respiratory Respiratory: bilateral: Decreased air entry with minimal wheezes - Cardiovascular Rhythm: Irregularly irregular Heart sounds: normal: S1, S2 Abnormal Heart Sounds: Positive systolic murmur, no diastolic murmur, no rub, no S3 Gallop, no S4 Gallop, no click - Gastrointestinal General gastrointestinal: normal bowel sounds, soft and nontender - Integumentary Integumentary: no rash 1+ pitting edema bilateral lower extremity - Neurologic Neurologic: no focal deficit tone is normal in all 4 extremities - Musculoskeletal Musculoskeletal: Gait not assessed strength equal bilaterally. Bilateral lower extremity chronic vascular dermatitis with improved generalized weakness - Psychiatric Psychiatric: A&O x's 3, appropriate affect - Labs CBC & Chem 7: 02/12/20 07:55 02/12/20 07:55 Labs: Abnormal Lab Results - Last 24 Hours (Table) 02/11/20 02/12/20 02/12/20 Range/Units 20:39 06:48 07:55 WBC 21.9 H (3.8-10.6) k/uL MCHC 30.9 L (31.0-37.0) g/dL Neutrophils # 20.5 H (1.3-7.7) k/uL Lymphocytes # 0.8 L (1.0-4.8) k/uL Chloride (98-107) mmol/L Carbon Dioxide (22-30) mmol/L BUN (7-17) mg/dL Glucose (74-99) mg/dL POC Glucose (mg/dL) 272 H 198 H (75-99) mg/dL Calcium (8.4-10.2) mg/dL 02/12/20 02/12/20 02/12/20 Range/Units 07:55 11:29 16:45 WBC (3.8-10.6) k/uL MCHC (31.0-37.0) g/dL Neutrophils # (1.3-7.7) k/uL Lymphocytes # (1.0-4.8) k/uL Chloride 96 L (98-107) mmol/L Carbon Dioxide 37 H (22-30) mmol/L BUN 31 H (7-17) mg/dL Glucose 205 H (74-99) mg/dL POC Glucose (mg/dL) 236 H 240 H (75-99) mg/dL Calcium 10.3 H (8.4-10.2) mg/dL Microbiology - Last 24 Hours (Table) 02/10/20 01:24 Blood Culture - Preliminary Blood No Growth after 48 hours Assessment and Plan Plan: 1 acute hypoxic respiratory failure secondary to bilateral pneumonia with COPD exacerbation continues to require 3 L of oxygen baseline oxygen requirement 2 L continue Rocephin and azithromycincontinue O2, continue updraft treatment, consult pulmonary patient will remain on updraft along with O2 and BiPAP when she is laying down or sleep. 2 bilateral pneumonitis: COVID ruled out . Continue azithromycin and Rocephin 3 COPD exacerbation: Patient will be on Pulmicort, and titrate O2. Patient lung capacity from last few admission has been extremely low. 4 A. fib with RVR: Remain on Eliquis 2.5 mg twice a day pulse rate is under control currently on metoprolol 50 mg twice a day 5 CHF: Chronic with acute component to diastolic dysfunction: BNP elevated Remain on furosemide 40 mg twice a day, continue isosorbide, continue metoprolol. 6 type 2 diabetes: Continue patient on Accu-Chek with sliding scales coverage along with long acting insulin Levemir 30 units subcutaneous at bedtime. 7 hyperlipidemia: Remain on atorvastatin 40 mg daily. 8 gout: Patient remain on Zyloprim 300 mg daily. 9 hypothyroidism: Remain on Cytomel 5 g daily along with levothyroxine 88 g a day. 10 GI prophylaxis/GERD: Remain on pantoprazole 40 mg a day. 11 chronic vascular dermatitis , unlikley to be cellulitis : Patient will be on antibiotic for now knee or thigh-high stocking and continued topical care with leg elevation and hopefully with the reduce of edema might help significantly. 12 anticoagulation: Patient is already on Eliquis 2.5 mg twice a day CODE STATUS: Full code.
[2020-02-12 20:09] LABS: Glucose,Whole Blood 227 mg/dL (75-99)
[2020-02-12] MEDS: ATORVASTATIN 40 MG TAB PO SCH (20:54)
[2020-02-12] MEDS: INSULIN DETEMIR (LEVEMIR) 100 UNIT/ML SYR SQ SCH (20:58)
[2020-02-13] MEDS: IPRATROPIUM-ALBUTEROL 3 ML NEB INHALATION SCH ×4 (00:16→12:10)
--- NOTE | 2020-02-13 00:58 | PN ---
PROGRESS NOTE DATE OF SERVICE: 02/12/2020 REASON FOR FOLLOWUP: Pneumonia. INTERVAL HISTORY: The patient is currently afebrile. Patient is breathing more comfortably. She denies having any chest pain. She did have a cough, not bringing up any sputum. No nausea, no vomiting. No abdominal pain or diarrhea. PHYSICAL EXAMINATION: Blood pressure 131/80 with a pulse of 67, temperature 98. She is 95% on 2 L nasal cannula. General description is an elderly female lying in bed in no distress. RESPIRATORY SYSTEM: Unlabored breathing, decreased breath sounds at the bases. No wheeze. HEART: S1, S2. Regular rate and rhythm. ABDOMEN: Soft, no tenderness. LABS: Hemoglobin is 12.5, white count 21.9, BUN of 31, creatinine 0.86. Blood culture has been negative. No sputum was collected. DIAGNOSTIC IMPRESSION AND PLAN: 1. Patient admitted to the hospital with difficulty in breathing with bilateral infiltrate concern for pneumonia. She has been ruled out for COVID-19 with a question of possible community-acquired. She is currently covered with Rocephin and Zithromax to continue. 2. Leukocytosis, more likely steroid effect and will monitor closely. MMODL / IJN: [id number] /
[2020-02-13 01:30] VITALS: RESP 18
[2020-02-13] MEDS: AZITHROMYCIN 500 MG TAB PO SCH (01:46)
[2020-02-13] MEDS: SODIUM CHLORIDE 0.9% 1,000 ML IV SCH (01:46)
[2020-02-13] MEDS: PANTOPRAZOLE 40 MG TABLET PO SCH (06:16)
[2020-02-13] MEDS: LIOTHYRONINE SODIUM 5 MCG TAB PO SCH (06:16)
[2020-02-13] MEDS: LEVOTHYROXINE 88 MCG TAB PO SCH (06:16)
[2020-02-13 06:46] LABS: Glucose,Whole Blood 141 mg/dL (75-99)
[2020-02-13 08:08] VITALS: BP 126/83; TEMP 98.4
[2020-02-13] MEDS: INSULIN ASPART (NovoLOG) 100 UNIT/ML VIAL SQ SCH ×2 (08:11→12:21)
[2020-02-13] MEDS: DOCUSATE 100 MG CAP PO SCH (08:11)
[2020-02-13] MEDS: allopurinoL 300 MG TAB PO SCH (08:12)
[2020-02-13] MEDS: ISOSORBIDE DINITRATE 10 MG TAB PO SCH (08:12)
[2020-02-13] MEDS: MECLIZINE 12.5 MG TAB PO SCH (08:12)
[2020-02-13] MEDS: METOPROLOL TARTRATE 50 MG TAB PO SCH (08:12)
[2020-02-13] MEDS: FUROSEMIDE 40 MG TAB PO SCH (08:12)
[2020-02-13] MEDS: APIXABAN 2.5 MG TABLET PO SCH (08:12)
[2020-02-13] MEDS: MINERAL OIL-WHITE PETROLATUM 120 GM JAR TOPICAL SCH (08:17)
--- NOTE | 2020-02-13 09:15 | P.DS ---
Providers Date of admission: 02/10/20 01:34 Expected date of discharge: 02/13/20 Attending physician: Dwain Weathers Consults: 02/10/20 09:23 Consult Physician Routine Consulting Provider: Eugenio Patrick Consult Reason/Comments: COVID/ Pneum Do you want consulting provider notified?: Yes 02/10/20 09:24 Consult Physician Routine Consulting Provider: Melly Yap Consult Reason/Comments: COVID/ pneum Do you want consulting provider notified?: Yes Primary care physician: [facility] Course: 79-year-old female from [facility] with known for the last year with past medical history of COPD, CHF, DVT or thrombosis, atrial fibrillation with RVR, history of rheumatoid arthritis, obstructive sleep apnea on BiPAP, recurrent hospitalization for respiratory failure and bilateral pneumonia with recurrent episode of COPD exacerbation. Patient was hospitalized lost few month ago for a COPD exacerbation and fluid overload was treated and done well. She has been in [facility] for the last 3 month period Patient was tested positive for the Covid 19 yesterday through screening all resident. Patient was having low-grade temperature with mild symptoms, no exposure, patient has been in quarantine since August has not left the place and has not exposed ready for family even through her window visit. No other resident in the same waiting tested positive. Patient brought to [facility] department late last night and had Covid 19 PCR test pending at this point. Review her chest x-ray showed bilateral pneumonia with worsening fluid overload and COPD exacerbation patient was mildly hypoxic with picture bilateral pneumonitis, patient was started on Rocephin and azithromycin initially patient will be seen pulmonary and will try to start her on Remdesivir if agreeable by pulmonary and infectious disease. patient examined bedside continues to be short of breath on exertion. Denies any chest pain breathing difficulty and requires 3 L of oxygen at rest patient wears 2 L of oxygen at baseline. Vitals are stable with a temperature of 98.2 pulse 101 and respiratory rate 16 blood pressure 123/85 oxygen saturation 95% on 2 L. Covid testing came back negative. ESR and CRP are negative lactic acid normal. Was treated for mild COPD exacerbation with pneumonia. Continue Solu-Medrol 60 every 8 hours and Rocephin and azithromycin. Chest x-ray concerning for bilateral pneumonia with possible pleural effusions concerning for CHF as proBNP ordered. Continue Lasix is 40 mg by mouth twice a day. 02/11 patient examined bedside. Denies any cough shortness of breath dizziness or chest pain. She denies any diarrhea or constipation. Patient has been cleared from pulmonary. Vitals are stable with temp of 98 pulse 67 blood pressure 131/80, oxygen saturation 95% on 2 L. We'll plan to discharge to [facility] tomorrow. 02/12: Patient has been afebrile, heart rate 94, blood pressure 126/83, pulse ox 94% on 3 L nasal cannula. Capillary blood glucose running between 141 and 240. Patient will be discharge to [facility] today in stable condition. Discharge diagnoses: 1 acute hypoxic respiratory failure secondary to bilateral pneumonia with COPD exacerbation. 2 bilateral pneumonitis: COVID ruled out. 3 COPD exacerbation. 4 chronic atrial fibrillation 5 chronic diastolic heart failure. 6 type 2 diabetes uncontrolled with hyperglycemia secondary to steroids 7 hyperlipidemia 8 chronic gout 9 hypothyroidism 10 chronic vascular dermatitis, unlikley to be cellulitis. Discharge plan: [facility] Impression and plan of care have been directed as dictated by the signing physician. Elsie Wade nurse practitioner acting as scribe for signing physician. Patient Condition at Discharge: Good Plan - Discharge Summary Discharge Rx Participant: No New Discharge Prescriptions: New Azithromycin [Zithromax] 500 mg PO Q24H #3 tab metOLazone [Zaroxolyn] 5 mg PO MOWEFR #30 tablet Continue Ubidecarenone [Co Q-10] 200 mg PO DAILY@1700 Potassium Chloride ER [K-Dur 20] 40 meq PO DAILY@1700 Atorvastatin [Lipitor] 40 mg PO HS@2100 allopurinoL [Zyloprim] 300 mg PO DAILY@0800 Liothyronine Sodium [Cytomel] 5 mcg PO DAILY@0600 Levothyroxine Sodium [Synthroid] 88 mcg PO DAILY@0600 Meclizine [Antivert] 12.5 mg PO TID@0800,1400,2100 Ipratropium-Albuterol Nebulize [Duoneb 0.5 mg-3 mg/3 ml Soln] 3 ml INHALATION RT-Q4H ml Benzocaine/Menthol Lozeng [Cepacol lozenge] 1 lozenge MUCOUS MEM Q6H PRN PRN Reason: Sore Throat bisacodyL [Dulcolax] 10 mg RECTAL DAILY PRN PRN Reason: Constipation INSULIN LISPRO (humaLOG) [humaLOG] See Protocol SQ ACHS Ipratropium-Albuterol Nebulize [Duoneb 0.5 mg-3 mg/3 ml Soln] 3 ml INHALATION RT-Q4H PRN PRN Reason: Shortness Of Breath Isosorbide Dinitrate 30 mg PO DAILY@0800 Magnesium Hydroxide [Milk of Magnesia Concentrate] 7,200 mg PO DAILY PRN PRN Reason: Constipation Na Phos,M-B/Na Phos,Di-Ba [Fleet Adult] 133 ml RECTAL DAILY PRN PRN Reason: Constipation guaiFENesin-DM 100-10MG/5ML [Robitussin DM] 10 ml PO Q6H PRN ml PRN Reason: Cough Acetaminophen Tab [Tylenol] 650 mg PO Q4HR PRN PRN Reason: Pain Docusate [Colace] 100 mg PO DAILY@0800 Furosemide [Lasix] 40 mg PO BID@0800,1700 Insulin Detemir (Levemir) [Levemir] 30 unit SQ HS@2100 Pantoprazole Sodium [Protonix] 40 mg PO DAILY@0600 Metoprolol Tartrate [Lopressor] 50 mg PO BID@0800,1700 tab Tiotropium 18 Mcg/Puff [Spiriva] 1 puff INHALATION RT-DAILY inhaler Apixaban [Eliquis] 2.5 mg PO BID@0800,1700 Colloidal Oatmeal [Eucerin Eczema Relief] 1 applic TOPICAL DAILY Mag Hydrox/Al Hydrox/Simeth [Maalox] 15 ml PO Q6H PRN PRN Reason: Gi Upset traMADol HCL [Ultram] 50 mg PO Q8H PRN #9 tab PRN Reason: Pain Discharge Medication List Potassium Chloride ER [K-Dur 20] 40 meq PO DAILY@1700 03/22/18 [History] Ubidecarenone [Co Q-10] 200 mg PO DAILY@1700 03/22/18 [History] Atorvastatin [Lipitor] 40 mg PO HS@2100 02/10/19 [History] Liothyronine Sodium [Cytomel] 5 mcg PO DAILY@0600 02/10/19 [History] allopurinoL [Zyloprim] 300 mg PO DAILY@0800 02/10/19 [History] Levothyroxine Sodium [Synthroid] 88 mcg PO DAILY@0600 01/22/20 [History] Meclizine [Antivert] 12.5 mg PO TID@0800,1400,2100 07/06/19 [History] Ipratropium-Albuterol Nebulize [Duoneb 0.5 mg-3 mg/3 ml Soln] 3 ml INHALATION RT-Q4H ml 07/12/19 [Rx] Benzocaine/Menthol Lozeng [Cepacol lozenge] 1 lozenge MUCOUS MEM Q6H PRN 07/13/19 [History] INSULIN LISPRO (humaLOG) [humaLOG] See Protocol SQ ACHS 07/13/19 [History] Ipratropium-Albuterol Nebulize [Duoneb 0.5 mg-3 mg/3 ml Soln] 3 ml INHALATION RT-Q4H PRN 07/13/19 [History] Isosorbide Dinitrate 30 mg PO DAILY@0800 07/13/19 [History] Magnesium Hydroxide [Milk of Magnesia Concentrate] 7,200 mg PO DAILY PRN 07/13/19 [History] Na Phos,M-B/Na Phos,Di-Ba [Fleet Adult] 133 ml RECTAL DAILY PRN 07/13/19 [History] bisacodyL [Dulcolax] 10 mg RECTAL DAILY PRN 07/13/19 [History] guaiFENesin-DM 100-10MG/5ML [Robitussin DM] 10 ml PO Q6H PRN ml 07/19/19 [Rx] Acetaminophen Tab [Tylenol] 650 mg PO Q4HR PRN 09/21/19 [History] Docusate [Colace] 100 mg PO DAILY@0800 09/21/19 [History] Furosemide [Lasix] 40 mg PO BID@0800,1700 09/21/19 [History] Insulin Detemir (Levemir) [Levemir] 30 unit SQ HS@209909/21/19 [History] Pantoprazole Sodium [Protonix] 40 mg PO DAILY@0600 09/21/19 [History] Metoprolol Tartrate [Lopressor] 50 mg PO BID@0800,1700 tab 09/26/19 [Rx] Tiotropium 18 Mcg/Puff [Spiriva] 1 puff INHALATION RT-DAILY inhaler 09/26/19 [Rx] Apixaban [Eliquis] 2.5 mg PO BID@0800,1700 02/10/20 [History] Colloidal Oatmeal [Eucerin Eczema Relief] 1 applic TOPICAL DAILY 02/10/20 [History] Mag Hydrox/Al Hydrox/Simeth [Maalox] 15 ml PO Q6H PRN 02/10/20 [History] Azithromycin [Zithromax] 500 mg PO Q24H #3 tab 02/13/20 [Rx] metOLazone [Zaroxolyn] 5 mg PO MOWEFR #30 tablet 02/13/20 [Rx] traMADol HCL [Ultram] 50 mg PO Q8H PRN #9 tab 02/13/20 [Rx] Follow up Appointment(s)/Referral(s): Will Kahn, [NON-STAFF] - 1 Week Dwain Weathers MD [Primary Care Provider] - 1 Week (at [facility]) Discharge Disposition: TRANSFER TO SNF/ECF
--- NOTE | 2020-02-13 09:27 | XR ---
EXAMINATION TYPE: XR chest 1V portable DATE OF EXAM: 02/13/2020 CLINICAL HISTORY: Dyspnea TECHNIQUE: Portable upright view of the chest obtained COMPARISON: 02/10/2020 chest radiograph comparison FINDINGS: There is improved aeration bilaterally with some residual airspace opacity of the right mi dlung and left base. Decreased persistent small bilateral pleural effusions. Decreased pulmonary vasc ular congestion. Cardiomediastinal silhouette unchanged. No pneumothorax. IMPRESSION: Moderately improved aeration of the lungs versus 02/10/2020 comparison. Persistent small b ilateral pleural effusions and airspace opacities of the right mid lung and left lung base.
[2020-02-13] MEDS ORDERED: metOLazone 5 MG TAB PO SCH (11:30)
[2020-02-13 12:00] LABS: Glucose,Whole Blood 159 mg/dL (75-99)
[2020-02-13 12:22] VITALS: PULSE 86
[2020-02-13 13:13] LABS: Basophils % (A) 0 %; Eosinophils % (A) 0 %; HCT 37.6 % (34.0-46.0); HGB 11.4 gm/dL (11.4-16.0); Hypochromasia Marked; Lymphocytes # (A) 1.4 k/uL (1.0-4.8); Lymphocytes % (A) 10 %; MCH 29.7 pg (25.0-35.0); MCHC 30.2 g/dL (31.0-37.0); MCV 98.3 fL (80.0-100.0); Macrocytosis Slight; Mean Platelet Volume 9.1; Monocytes # (A) 0.9 k/uL (0-1.0); Monocytes % (A) 7 %; Neutrophils # (A) 11.7 k/uL (1.3-7.7); Neutrophils % (A) 82 %; Platelet Count 186 k/uL (150-450); RBC 3.83 m/uL (3.80-5.40); RDW 15.2 % (11.5-15.5); WBC 14.3 k/uL (3.8-10.6)
[2020-02-13 13:16] LABS: Albumin 3.6 g/dL (3.5-5.0); Calcium 9.7 mg/dL (8.4-10.2); Total Bilirubin 0.4 mg/dL (0.2-1.3); Total Protein 5.9 g/dL (6.3-8.2)
--- NOTE | 2020-02-13 17:11 | PN ---
PROGRESS NOTE DATE OF SERVICE: 02/13/2020 REASON FOR FOLLOWUP: Pneumonia. INTERVAL HISTORY: Patient is seen on rounds early this afternoon. The patient has been afebrile, she is breathing more comfortably. Denies having any chest pain. No cough. No nausea, no vomiting. No abdominal pain, no diarrhea. PHYSICAL EXAMINATION: Blood pressure 126/83 with a pulse of 58.4. He is 94% on 2 L nasal cannula. General description is an elderly female, lying in bed in no distress. RESPIRATORY SYSTEM: Unlabored breathing, decreased breath sounds at the base. HEART: S1, S2. Regular rate and rhythm. ABDOMEN: Soft, no tenderness. LABS: White count 14.2, BUN of 7, creatinine 0.90. Blood culture has been negative. DIAGNOSTIC IMPRESSION AND PLAN: 1. Patient admitted to the hospital with shortness of breath. This patient did have a falsely positive. COVID-19 repeat has been negative. Chest x-ray did show overall improvement, may consider short course of oral Ceftin combination for about a week and close outpatient followup. 2. Leukocytosis, possibly steroid related and showing a downward trend. MMODL / IJN: [id number] /
== END 2020-02-13 13:39 | DRG 193 ==
LOC: EC 00:44 → 4SSUR 01:34
PROVIDERS: ADMIT Internal Medicine Geriatric Medicine; ATTEND Internal Medicine Geriatric Medicine
PROC: 5A09357 Assistance with Respiratory Ventilation, Less than 24 Consecutive Hours, Continuous Positive Airway Pressure (ICD-10-PCS; principal; 2020-02-10)
DX: J18.9 Pneumonia, unspecified organism (principal); J96.21 Acute and chronic respiratory failure with hypoxia; I50.33 Acute on chronic diastolic (congestive) heart failure; J44.1 Chronic obstructive pulmonary disease with (acute) exacerbation; J44.0 Chronic obstructive pulmonary disease with (acute) lower respiratory infection; I13.0 Hypertensive heart and chronic kidney disease with heart failure and stage 1 through stage 4 chronic kidney disease, or unspecified chronic kidney disease; E11.52 Type 2 diabetes mellitus with diabetic peripheral angiopathy with gangrene; Z16.24 Resistance to multiple antibiotics; I48.20 Chronic atrial fibrillation, unspecified; L03.818 Cellulitis of other sites; J98.11 Atelectasis; E78.5 Hyperlipidemia, unspecified; M06.9 Rheumatoid arthritis, unspecified; G47.33 Obstructive sleep apnea (adult) (pediatric); K21.9 Gastro-esophageal reflux disease without esophagitis; Z96.651 Presence of right artificial knee joint; Z96.1 Presence of intraocular lens; Z20.828 Contact with and (suspected) exposure to other viral communicable diseases; E11.22 Type 2 diabetes mellitus with diabetic chronic kidney disease; N18.3 Chronic kidney disease, stage 3 (moderate); E03.9 Hypothyroidism, unspecified; D63.1 Anemia in chronic kidney disease; E11.40 Type 2 diabetes mellitus with diabetic neuropathy, unspecified; L30.9 Dermatitis, unspecified; R53.81 Other malaise; D72.829 Elevated white blood cell count, unspecified; I08.1 Rheumatic disorders of both mitral and tricuspid valves; I27.20 Pulmonary hypertension, unspecified; M1A.9XX0 Chronic gout, unspecified, without tophus (tophi); T38.0X5A Adverse effect of glucocorticoids and synthetic analogues, initial encounter; E11.65 Type 2 diabetes mellitus with hyperglycemia; Z79.890 Hormone replacement therapy; Z79.899 Other long term (current) drug therapy; Z79.4 Long term (current) use of insulin; Z88.8 Allergy status to other drugs, medicaments and biological substances; Z88.7 Allergy status to serum and vaccine; Z88.2 Allergy status to sulfonamides; Z98.890 Other specified postprocedural states; Z99.81 Dependence on supplemental oxygen; Z82.49 Family history of ischemic heart disease and other diseases of the circulatory system; Z99.89 Dependence on other enabling machines and devices; Z90.710 Acquired absence of both cervix and uterus; Z98.41 Cataract extraction status, right eye; Z98.42 Cataract extraction status, left eye; Z86.718 Personal history of other venous thrombosis and embolism; Z87.440 Personal history of urinary (tract) infections; Z87.891 Personal history of nicotine dependence; Z79.01 Long term (current) use of anticoagulants; Z87.898 Personal history of other specified conditions; Z86.19 Personal history of other infectious and parasitic diseases
CPT/HCPCS: 36415; 71045; 80053; 82728; 83605; 83615; 83735; 83880; 84145; 85025; 85610; 85730; 86140; 87040; 93005; 94640; 94760; 96365; 99285

== ENCOUNTER 2021-05-07 19:31 | Observation (INO) | payer MEDICARE ==
--- NOTE | 2021-05-07 20:16 | ED ---
General Adult HPI - General Source: patient, EMS Mode of arrival: EMS Limitations: no limitations <Jaylen Alvarenga D - Last Filed: 05/07/21 21:03> <Katie Metz P - Last Filed: 05/07/21 22:03> - General Chief complaint: Chest Pain Stated complaint: Chest Pain Time Seen by Provider: 05/07/21 19:42 - History of Present Illness Initial comments: Dictation was produced using [employer] dictation software. please excuse any grammatical, word or spelling errors. Chief Complaint: 80 yo female multiple comorbidities presents to the emergency department for chest pain History of Present Illness: Patient is a 80-year-old female she has multiple comorbidities. She presents to the emergency department for her one of substernal chest pain. Patient describes it as sharp. She was transferred here from [facility]. Patient has extensive cardiac history including coronary artery disease. She describes the pain as substernal with radiation to the back. She states the sharp. It radiates to both shoulders. No associated nausea diaphoresis. EMS arrived on scene provide patient with nitroglycerin and aspirin. Patient did not report any significant improvement with nitroglycerin. The ROS documented in this emergency department record has been reviewed and confirmed by me. Those systems with pertinent positive or negative responses have been documented in the HPI. All other systems are other negative and/or noncontributory. PHYSICAL EXAM: General Impression: Alert and oriented x3, not in acute distress HEENT: Normocephalic atraumatic, extra-ocular movements intact, pupils equal and reactive to light bilaterally, mucous membranes moist. Cardiovascular: Heart regular rate and rhythm Chest: Able to complete full sentences, no retractions, no tachypnea Abdomen: abdomen soft, non-tender, non-distended, no organomegaly Musculoskeletal: Pulses present and equal in all extremities, no peripheral edema Motor: no focal deficits noted Neurological: CN II-XII grossly intact, no focal motor or sensory deficits noted Skin: Intact with no visualized rashes Psych: Normal affect and mood ED course: 80-year-old female presents to the emergency department for atypical chest pain typical features she has multiple risk factors. EKG does not show any signs of ischemia or infarction. EKG shows atrial fibrillation. Patient takes in a coagulation medications for this. Vital signs according to our EMR she has a card a catheterization from 2017 showing coronary artery disease. upon arrival are within acceptable limits. patient care signed out to Dr. Metz EKG interpretation: Ventricular rate 101, H fibrillation, QRS 80, QTC 487. No IA prolongation, no QTC prolongation, no ST or T-wave changes noted. EKG compared to 02/10/2020 showing no changes. Overall, this EKG is unremarkable (Jaylen Alvarenga) - Related Data Home Medications Medication Instructions Recorded Confirmed Potassium Chloride ER [K-Dur 20] 20 meq PO DAILY 03/22/18 05/07/21 Atorvastatin [Lipitor] 40 mg PO HS 02/10/19 05/07/21 Liothyronine Sodium [Cytomel] 5 mcg PO DAILY 02/10/19 05/07/21 allopurinoL [Zyloprim] 300 mg PO DAILY 02/10/19 05/07/21 Magnesium Hydroxide [Milk of 7,200 mg PO DAILY PRN 07/13/19 05/07/21 Magnesia Concentrate] Na Phos,M-B/Na Phos,Di-Ba [Fleet 133 ml RECTAL DAILY PRN 07/13/19 05/07/21 Adult] bisacodyL [Dulcolax] 10 mg RECTAL DAILY PRN 07/13/19 05/07/21 Docusate [Colace] 100 mg PO DAILY 09/21/19 05/07/21 Furosemide [Lasix] 40 mg PO BID 09/21/19 05/07/21 Insulin Detemir (Levemir) [Levemir] 30 unit SQ HS 09/21/19 05/07/21 Apixaban [Eliquis] 2.5 mg PO BID 02/10/20 05/07/21 Ergocalciferol (Vitamin D2) 1,250 mcg PO Q7D 05/07/21 05/07/21 [Drisdol (50,000 Iu)] Ferrous Sulfate [Iron] 325 mg PO DAILY 05/07/21 05/07/21 Gabapentin [Neurontin] 100 mg PO BID 05/07/21 05/07/21 INSULIN ASPART (NovoLOG) [NovoLOG See Protocol SQ AC-TID 05/07/21 05/07/21 (formulary)] Ipratropium-Albuterol Nebulize 3 ml INHALATION RT-Q6H 05/07/21 05/07/21 [Duoneb 0.5 mg-3 mg/3 ml Soln] Isosorbide Mononitrate ER [Imdur] 30 mg PO DAILY 05/07/21 05/07/21 Levothyroxine Sodium [Synthroid] 50 mcg PO DAILY 05/07/21 05/07/21 Meclizine HCl 25 mg PO TID PRN 05/07/21 05/07/21 Metoprolol Tartrate [Lopressor] 50 mg PO TID 05/07/21 05/07/21 Montelukast Sodium [Singulair] 10 mg PO HS 05/07/21 05/07/21 Omeprazole 20 mg PO DAILY 05/07/21 05/07/21 Spironolactone 25 mg PO DAILY 05/07/21 05/07/21 Ubidecarenone [Coenzyme Q10] 50 mg PO DAILY 05/07/21 05/07/21 dilTIAZem HCL 30 mg PO BID 05/07/21 05/07/21 guaiFENesin SYRUP 100MG/5ML 200 mg PO Q4H PRN 05/07/21 05/07/21 [Robitussin] polyethylene glycoL 3350 [Miralax] 17 gm PO DAILY 05/07/21 05/07/21 Previous Rx's Medication Instructions Recorded Tiotropium 18 Mcg/Puff [Spiriva] 1 puff INHALATION RT-DAILY inhaler 09/26/19 traMADol HCL [Ultram] 50 mg PO Q8H PRN #9 tab 02/13/20 Allergies Allergy/AdvReac Type Severity Reaction Status Date / Time iron Allergy Rash/Hives Verified 05/07/21 20:53 Sulfa (Sulfonamide Allergy Rash/Hives Verified 05/07/21 20:53 Antibiotics) Tetanus Vaccines and Toxoid Allergy Swelling Verified 05/07/21 20:53 Review of Systems ROS Other: All systems not noted in ROS Statement are negative. <Jaylen Alvarenga - Last Filed: 05/07/21 21:03> ROS Other: All systems not noted in ROS Statement are negative. <Katie Metz - Last Filed: 05/07/21 22:03> ROS Statement: Those systems with pertinent positive or pertinent negative responses have been documented in the HPI. Past Medical History Past Medical History: Atrial Fibrillation, Heart Failure, COPD, Diabetes Mellitus, Deep Vein Thrombosis (DVT), GERD/Reflux, Hyperlipidemia, Hypertension, Osteoarthritis (OA), Pneumonia, Renal Disease, Respiratory Disorder, Rheumatoid Arthritis (RA), Sleep Apnea/CPAP/BIPAP, Thyroid Disorder Additional Past Medical History / Comment(s): Pt recently admitted to [facility] on 07/06/19 with pressure injury bilateral heels/gangrene, acute on chronic chf, cellulitis L lower extremity, bilateral pleural effusion. Other hx: Chronic respiratory failure, home O2 at 2L/NC, possible mild pulmonary HTN, JOSR but no longer uses her device, lower extremity edema/redness/cellulitis, bilateral heel wounds,pt states she currently has a decubitus on her coccyx, IDDM type II, neuropathy bilateral hands/feet, CKD stage III, pt states she has had "bleeding in the kidneys" in the past, anemia, UTI with sepsis, incontinent of urine and occasionally stool, migraines, gout, hypothyroid, vertigo. History of Any Multi-Drug Resistant Organisms: Other MDRO Past Surgical History: Heart Catheterization, Hysterectomy, Joint Replacement, Orthopedic Surgery Additional Past Surgical History / Comment(s): L heel debridement with bx, midline, cardiac cath 2017-treated medically, R total knee replacement, L foot heel spur, sanjana cataracts with lens implants, cystoscopy, EGD, colonoscopy. Past Anesthesia/Blood Transfusion Reactions: No Reported Reaction Past Psychological History: No Psychological Hx Reported Smoking Status: Never smoker Past Alcohol Use History: None Reported Past Drug Use History: None Reported - Past Family History Mother Family Medical History: Renal Disease Father Family Medical History: Coronary Artery Disease (CAD) <Jaylen Alvarenga - Last Filed: 05/07/21 21:03> General Exam Limitations: no limitations <Jaylen Alvarenga - Last Filed: 05/07/21 21:03> Course Vital Signs 05/07/21 05/07/21 05/07/21 19:33 19:39 21:51 Temperature 97.7 F Pulse Rate 51 L 78 Respiratory 20 17 Rate Blood Pressure 102/76 117/78 O2 Sat by Pulse 97 98 Oximetry Medical Decision Making - Lab Data Result diagrams: 05/07/21 20:13 05/07/21 20:13 <Jaylen Alvarenga - Last Filed: 05/07/21 21:03> - Lab Data Result diagrams: 05/07/21 20:13 05/07/21 20:13 <Katie Metz - Last Filed: 05/07/21 22:03> - Medical Decision Making Patient care was signed out to me by flaco Schmitt this is an 80-year-old female with extensive cardiac history who presents today with retrosternal chest pain radiating to the bilateral shoulders, there is no improvement in pain with nitro and aspirin prior to arrival. Patient's EKG was unchanged from previous, troponin was negative. Patient care was discussed with Dr. Jackman who accepts admission with consult to cardiology for high risk chest pain. (Katie Metz) - Lab Data Lab Results 05/07/21 05/07/21 05/07/21 Range/Units 20:13 20:13 20:13 WBC 14.8 H (3.8-10.6) k/uL RBC 3.88 (3.80-5.40) m/uL Hgb 12.3 (11.4-16.0) gm/dL Hct 37.6 (34.0-46.0) % MCV 97.0 (80.0-100.0) fL MCH 31.7 (25.0-35.0) pg MCHC 32.7 (31.0-37.0) g/dL RDW 14.5 (11.5-15.5) % Plt Count 186 (150-450) k/uL MPV 9.2 Neutrophils % 78 % Lymphocytes % 14 % Monocytes % 4 % Eosinophils % 1 % Basophils % 1 % Neutrophils # 11.5 H (1.3-7.7) k/uL Lymphocytes # 2.1 (1.0-4.8) k/uL Monocytes # 0.7 (0-1.0) k/uL Eosinophils # 0.2 (0-0.7) k/uL Basophils # 0.1 (0-0.2) k/uL Poikilocytosis Slight PT 10.0 (9.0-12.0) sec INR 0.9 (<1.2) APTT 21.4 L (22.0-30.0) sec Sodium 134 L (137-145) mmol/L Potassium 4.9 (3.5-5.1) mmol/L Chloride 102 (98-107) mmol/L Carbon Dioxide 23 (22-30) mmol/L Anion Gap 9 mmol/L BUN 49 H (7-17) mg/dL Creatinine 1.48 H (0.52-1.04) mg/dL Est GFR (CKD-EPI)AfAm 38 (>60 ml/min/1.73 sqM) Est GFR (CKD-EPI)NonAf 33 (>60 ml/min/1.73 sqM) Glucose 186 H (74-99) mg/dL Calcium 9.4 (8.4-10.2) mg/dL Magnesium 2.0 (1.6-2.3) mg/dL Total Bilirubin 0.8 (0.2-1.3) mg/dL AST 24 (14-36) U/L ALT 17 (4-34) U/L Alkaline Phosphatase 123 (38-126) U/L Troponin I (0.000-0.034) ng/mL Total Protein 6.2 L (6.3-8.2) g/dL Albumin 3.4 L (3.5-5.0) g/dL 05/07/ Range/Units 20:13 WBC (3.8-10.6) k/uL RBC (3.80-5.40) m/uL Hgb (11.4-16.0) gm/dL Hct (34.0-46.0) % MCV (80.0-100.0) fL MCH (25.0-35.0) pg MCHC (31.0-37.0) g/dL RDW (11.5-15.5) % Plt Count (150-450) k/uL MPV Neutrophils % % Lymphocytes % % Monocytes % % Eosinophils % % Basophils % % Neutrophils # (1.3-7.7) k/uL Lymphocytes # (1.0-4.8) k/uL Monocytes # (0-1.0) k/uL Eosinophils # (0-0.7) k/uL Basophils # (0-0.2) k/uL Poikilocytosis PT (9.0-12.0) sec INR (<1.2) APTT (22.0-30.0) sec Sodium (137-145) mmol/L Potassium (3.5-5.1) mmol/L Chloride (98-107) mmol/L Carbon Dioxide (22-30) mmol/L Anion Gap mmol/L BUN (7-17) mg/dL Creatinine (0.52-1.04) mg/dL Est GFR (CKD-EPI)AfAm (>60 ml/min/1.73 sqM) Est GFR (CKD-EPI)NonAf (>60 ml/min/1.73 sqM) Glucose (74-99) mg/dL Calcium (8.4-10.2) mg/dL Magnesium (1.6-2.3) mg/dL Total Bilirubin (0.2-1.3) mg/dL AST (14-36) U/L ALT (4-34) U/L Alkaline Phosphatase (38-126) U/L Troponin I <0.012 (0.000-0.034) ng/mL Total Protein (6.3-8.2) g/dL Albumin (3.5-5.0) g/dL Disposition <Jaylen Alvarenga D - Last Filed: 05/07/21 21:03> Is patient prescribed a controlled substance at d/c from ED?: No <Katie Metz P - Last Filed: 05/07/21 22:03> Clinical Impression: Chest pain Disposition: ADMITTED IP TO THIS HOSP Condition: Stable Referrals: Dwani Weathers MD [Primary Care Provider] - 1-2 days
[2021-05-07 20:43] LABS: Basophils # (A) 0.1 k/uL (0-0.2); Basophils % (A) 1 %; Eosinophils # (A) 0.2 k/uL (0-0.7); Eosinophils % (A) 1 %; HCT 37.6 % (34.0-46.0); HGB 12.3 gm/dL (11.4-16.0); Lymphocytes # (A) 2.1 k/uL (1.0-4.8); Lymphocytes % (A) 14 %; MCH 31.7 pg (25.0-35.0); MCHC 32.7 g/dL (31.0-37.0); Mean Platelet Volume 9.2; Monocytes # (A) 0.7 k/uL (0-1.0); Monocytes % (A) 4 %; Neutrophils # (A) 11.5 k/uL (1.3-7.7); Neutrophils % (A) 78 %; Platelet Count 186 k/uL (150-450); Poikilocytosis Slight; RBC 3.88 m/uL (3.80-5.40); RDW 14.5 % (11.5-15.5); WBC 14.8 k/uL (3.8-10.6)
[2021-05-07 20:58] LABS: Albumin 3.4 g/dL (3.5-5.0); Calcium 9.4 mg/dL (8.4-10.2); Potassium 4.9 mmol/L (3.5-5.1); Total Bilirubin 0.8 mg/dL (0.2-1.3); Total Protein 6.2 g/dL (6.3-8.2)
--- NOTE | 2021-05-07 21:04 | XR ---
EXAMINATION TYPE: XR chest 2V DATE OF EXAM: 05/07/2021 COMPARISON: 02/13/2020 HISTORY: Chest pain TECHNIQUE: FINDINGS: Heart is enlarged. There is no gross heart failure. There is some blunting of the costophre olivier angles. There are chest leads. There is osteopenia. IMPRESSION: There is some pleural reaction and atelectasis at the posterior lung bases. No obvious he art failure.
[2021-05-07 21:11] LABS: INR 0.9 (<1.2); Partial Thromboplastin Time 21.4 sec (22.0-30.0)
[2021-05-07] MEDS ORDERED: NITROGLYCERIN SL TABS 0.4 MG TAB SUBLINGUAL PRN (21:58)
[2021-05-08] MEDS ORDERED: ASPIRIN 325 MG TAB PO SCH (09:00)
[2021-05-08] MEDS ORDERED: FUROSEMIDE 40 MG TAB PO SCH (09:15)
[2021-05-08] MEDS ORDERED: NA PHOS,M-B/NA PHOS,DI-BA 133 ML ENEMA RECTAL PRN (09:16)
[2021-05-08] MEDS ORDERED: guaiFENesin SYRUP 100MG/5ML 200 MG/10 ML CUP PO PRN (09:16)
[2021-05-08] MEDS ORDERED: traMADol 50 MG TAB PO PRN (09:16)
[2021-05-08] MEDS ORDERED: bisacodyL 10 MG SUPP RECTAL PRN (09:16)
[2021-05-08] MEDS ORDERED: IOPAMIDOL CONTRAST (ORAL USE) VIAL PO PRN (09:18)
[2021-05-08 10:13] LABS: Glucose,Whole Blood 198 mg/dL (75-99)
[2021-05-08 10:14] LABS: LDL Cholesterol,Calculated 49.8 mg/dL (0.0-131.0)
[2021-05-08] MEDS: APIXABAN 2.5 MG TABLET PO SCH ×2 (10:14→20:52)
[2021-05-08] MEDS: METOPROLOL TARTRATE 50 MG TAB PO SCH ×3 (10:15→20:52)
[2021-05-08] MEDS: SPIRONOLACTONE 25 MG TAB PO SCH (10:15)
[2021-05-08] MEDS: ISOSORBIDE MONONITRATE ER 30 MG TAB.ER.24H PO SCH (10:15)
[2021-05-08] MEDS: DILTIAZEM ORAL 30 MG TAB PO SCH ×2 (10:15→20:51)
[2021-05-08] MEDS: IPRATROPIUM-ALBUTEROL 3 ML NEB INHALATION SCH ×2 (11:33→20:32)
--- NOTE | 2021-05-08 11:52 | ECHOF ---
Referral Reason:LV function MEASUREMENTS -------- HEIGHT: 165.1 cm WEIGHT: 113.4 kg BP: RVIDd: 2.9 cm (< 3.3) IVSd: 1.3 cm (0.6 - 1.1) LVIDd: 3.7 cm (3.9 - 5.3) LVPWd: 1.2 cm (0.6 - 1.1) IVSs: 1.8 cm LVIDs: 2.1 cm LVPWs: 1.1 cm LAESV Index (A-L): 42.63 ml/m Ao Diam: 3.1 cm (2.0 - 3.7) AV Cusp: 1.8 cm (1.5 - 2.6) LA Diam: 3.4 cm (2.7 - 3.8) MV E Marty: 2.10 m/s MV DecT: 373 ms MV A Marty: 0.65 m/s MV E/A Ratio: 3.20 AV maxP.04 mmHg AV meanP.70 mmHg AR PHT: 555 ms RAP: 5.00 mmHg RVSP: 32.18 mmHg FINDINGS -------- This was a technically adequate study. The left ventricular size is normal. There is mild concentric left ventricular hypertrophy. Overa ll left ventricular systolic function is normal with, an EF between 55 - 60 %. Increased LAP Grade 2 Diastolic Dysfunction. The right ventricle is normal in size. LA is severely dilated >40 ml/m2 The right atrial size is normal. Aortic valve is trileaflet and is mildly thickened. Trace amount of aortic regurgitation. There is mild aortic stenosis present. Peak/mean gradient across the Aortic Valve is 15.04mmHg / 7.70mmHg . The mitral valve is normal. The mitral valve leaflets are moderately thickened. Moderate mitral a nnular calcification present. Mild mitral regurgitation is present. The peak and mean MV gradien ts are 15.57mmHg 6.23mmHg as measured by doppler. [id number] mitral stenosis. The tricuspid valve appears structurally normal. Moderate to severe tricuspid regurgitation present . Right ventricular systolic pressure is normal at < 35 mmHg. There is no pulmonic regurgitation present. The aortic root size is normal. IVC Not well visulized. There is no pericardial effusion. CONCLUSIONS -------- 1. The left ventricular size is normal. 2. There is mild concentric left ventricular hypertrophy. 3. Overall left ventricular systolic function is normal with, an EF between 55 - 60 %. 4. Increased LAP Grade 2 Diastolic Dysfunction. 5. LA is severely dilated >40 ml/m2 6. Aortic valve is trileaflet and is mildly thickened. 7. Trace amount of aortic regurgitation. 8. There is mild aortic stenosis present. 9. Peak/mean gradient across the Aortic Valve is 15.04mmHg / 7.70mmHg. 10. The mitral valve leaflets are moderately thickened. 11. Moderate mitral annular calcification present. 12. Mild mitral regurgitation is present. 13. The peak and mean MV gradients are 15.57mmHg 6.23mmHg as measured by doppler. 14. [id number] mitral stenosis. 15. Moderate to severe tricuspid regurgitation present. 16. There is no pericardial effusion. SPEECH WRITER: Maggy Jarvis RDCS
--- NOTE | 2021-05-08 11:57 | CT ---
EXAMINATION TYPE: CT abdomen pelvis wo con DATE OF EXAM: 05/08/2021 COMPARISON: None HISTORY: Generalized pain with nausea CT DLP: 1657.2 mGycm Examination of the solid and hollow viscera is limited given the lack of contrast. FINDINGS: LUNG BASES: Bilateral pleural effusions and mild compressive atelectasis. Cardiomegaly. Mitral valvul ar prosthesis. LIVER/GB: Layering gallstones noted within the gallbladder lumen. No wall thickening or pericholecyst ic fluid identified. No space-occupying hepatic lesion. PANCREAS: No pancreatic mass identified. No inflammatory process seen. SPLEEN: No evidence for splenomegaly. No intrasplenic lesions seen. ADRENALS: Left adrenal nodule measuring 3.2 cm unchanged from prior CT chest dated 07/09/2027. Right a drenal gland is unremarkable. KIDNEYS: Renal parenchymal thinning bilaterally. Hypoattenuating lesion lower pole left kidney measur es 3.4 cm and may reflect cysts. Hayes balloon catheter is in place. No nephrolithiasis. No hydroneph rosis. BOWEL: Appendix has a normal appearance. No evidence of bowel obstruction. There is mild stranding ab out the rectum which may reflect proctitis. Correlate clinically. Mild fecal stasis appreciated. Lymph nodes: No evidence for adenopathy greater than 1 cm. Abdominal aorta: Atheromatous changes seen. No evidence for aneurysm. Genital organs: No significant abnormality. Other: No significant abnormality. IMPRESSION: 1. Correlate for proctitis. 2. Bilateral pleural effusions and mild compressive atelectasis. 3. Layering gallstones. 4. Left adrenal nodule may reflect adenoma.
--- NOTE | 2021-05-08 13:19 | P.CRDCN ---
History of Present Illness Consult date: 05/08/21 History of present illness: HISTORY OF PRESENT ILLNESS: This is a 80 year old female with a past medical history significant for congestive heart failure, hypertension, hyperlipidemia, diabetes, and atrial fibrillation. Patient follows in the office with Dr. Kim but has not been seen since 2018. We have been asked to see the patient in consultation for chest pain. Patient examined at the bedside. Patient resides at [facility]. She states yesterday she began having chest pain while she was laying in bed relaxing. The patient states she was short of breath and it felt like an elephant sitting on her chest. She states the pain is worse with palpation and also with deep inspiration. She states the pain is worse with deep inspiration. She reports a cough but no fever or chills. She reports getting the Covid vaccine earlier this year but has not received the Covid booster yet. EKG reveals sinus mechanism with diffuse minimal ST elevation suggesting acute pericarditis Chest xray some pleural reaction and atelectasis at the posterior lung bases. No obvious heart failure. Laboratory data: WBC 14.8. Hemoglobin 12.3. Platelet count 186. Sodium 134. Potassium 4.9. BUN 49. Creatinine 1.48. Troponin negative 3. Cardio gram completed revealing ejection fraction 55-60%, severely dilated LA, trace amount of aortic regurgitation, mild aortic stenosis, mild mitral regurgitation, [id number] mitral stenosis, and moderate to severe tricuspid regurgitation REVIEW OF SYSTEMS: At the time of my exam: CONSTITUTIONAL: Denies fever or chills. HEENT: Denies blurred vision, vision changes, or eye pain. Denies hemoptysis CARDIOVASCULAR: Denies chest pain. Denies orthopnea. Denies PND. Denies palp itations RESPIRATORY: Denies shortness of breath. GASTROINTESTINAL: Denies abdominal pain. Denies nausea or vomiting. HEMATOLOGIC: Denies bleeding disorders. GENITOURINARY: Denies any blood in urine. SKIN: Denies pruitis. Denies rash. PHYSICAL EXAM: VITAL SIGNS: Reviewed. GENERAL: Well-developed in no acute distress. HEENT: Head is normocephalic. Pupils are equal, round. Sclerae anicteric. Mucous membranes of the mouth are moist. Neck supple. No JVD or thyromegaly LUNGS: Respirations even and unlabored. Lungs essentially clear to auscultation bilaterally. HEART: Irregular rate and rhythm. S1 and S2 heard. Systolic murmur noted. ABDOMEN: Soft. Nondistended. Nontender. EXTREMITIES: Normal range of motion. No clubbing or cyanosis. Peripheral pulses intact. No lower extremity edema NEUROLOGIC: Awake and alert. Oriented x 3. ASSESSMENT: Chest pain Acute pericarditis Hypertension Hyperlipidemia Diabetes Paroxysmal atrial fibrillation, on Eliquis Chronic diastolic congestive heart failure Valvular heart disease Obesity PLAN: Resume home cardiac medications Begin colchicine 0.6 mg daily Further recommendations pending patient's course Nurse practitioner note has been reviewed by physician. Signing provider agrees with the documented findings, assessment, and plan of care. Past Medical History Past Medical History: Atrial Fibrillation, Heart Failure, COPD, Diabetes Mellitus, Deep Vein Thrombosis (DVT), GERD/Reflux, Hyperlipidemia, Hypertension, Osteoarthritis (OA), Pneumonia, Renal Disease, Respiratory Disorder, Rheumatoid Arthritis (RA), Sleep Apnea/CPAP/BIPAP, Thyroid Disorder Additional Past Medical History / Comment(s): Pt recently admitted to [facility] on 07/06/19 with pressure injury bilateral heels/gangrene, acute on chronic chf, cellulitis L lower extremity, bilateral pleural effusion. Other hx: Chronic respiratory failure, home O2 at 2L/NC, possible mild pulmonary HTN, JOSR but no longer uses her device, lower extremity edema/redness/cellulitis, bilateral heel wounds,pt states she currently has a decubitus on her coccyx, IDDM type II, neuropathy bilateral hands/feet, CKD stage III, pt states she has had "bleeding in the kidneys" in the past, anemia, UTI with sepsis, incontinent of urine and occasionally stool, migraines, gout, hypothyroid, vertigo. History of Any Multi-Drug Resistant Organisms: Other MDRO Past Surgical History: Heart Catheterization, Hysterectomy, Joint Replacement, Orthopedic Surgery Additional Past Surgical History / Comment(s): L heel debridement with bx, midline, cardiac cath 2017-treated medically, R total knee replacement, L foot heel spur, sanjana cataracts with lens implants, cystoscopy, EGD, colonoscopy. Past Anesthesia/Blood Transfusion Reactions: No Reported Reaction Past Psychological History: No Psychological Hx Reported Smoking Status: Never smoker Past Alcohol Use History: None Reported Past Drug Use History: None Reported - Past Family History Mother Family Medical History: Renal Disease Father Family Medical History: Coronary Artery Disease (CAD) Medications and Allergies Home Medications Medication Instructions Recorded Confirmed Type Potassium Chloride ER [K-Dur 20] 20 meq PO DAILY 03/22/18 05/07/21 History Atorvastatin [Lipitor] 40 mg PO HS 02/10/19 05/07/21 History Liothyronine Sodium [Cytomel] 5 mcg PO DAILY 02/10/19 05/07/21 History allopurinoL [Zyloprim] 300 mg PO DAILY 02/10/19 05/07/21 History Magnesium Hydroxide [Milk of 7,200 mg PO DAILY PRN 07/13/19 05/07/21 History Magnesia Concentrate] Na Phos,M-B/Na Phos,Di-Ba [Fleet 133 ml RECTAL DAILY PRN 07/13/19 05/07/21 History Adult] bisacodyL [Dulcolax] 10 mg RECTAL DAILY PRN 07/13/19 05/07/21 History Docusate [Colace] 100 mg PO DAILY 09/21/19 05/07/21 History Furosemide [Lasix] 40 mg PO BID 09/21/19 05/07/21 History Insulin Detemir (Levemir) [Levemir] 30 unit SQ HS 09/21/19 05/07/21 History Tiotropium 18 Mcg/Puff [Spiriva] 1 puff INHALATION RT-DAILY inhaler 09/26/19 05/07/21 Rx Apixaban [Eliquis] 2.5 mg PO BID 02/10/20 05/07/21 History traMADol HCL [Ultram] 50 mg PO Q8H PRN #9 tab 02/13/20 05/07/21 Rx Ergocalciferol (Vitamin D2) 1,250 mcg PO Q7D 05/07/21 05/07/21 History [Drisdol (50,000 Iu)] Ferrous Sulfate [Iron] 325 mg PO DAILY 05/07/21 05/07/21 History Gabapentin [Neurontin] 100 mg PO BID 05/07/21 05/07/21 History INSULIN ASPART (NovoLOG) [NovoLOG See Protocol SQ AC-TID 05/07/21 05/07/21 History (formulary)] Ipratropium-Albuterol Nebulize 3 ml INHALATION RT-Q6H 05/07/21 05/07/21 History [Duoneb 0.5 mg-3 mg/3 ml Soln] Isosorbide Mononitrate ER [Imdur] 30 mg PO DAILY 05/07/21 05/07/21 History Levothyroxine Sodium [Synthroid] 50 mcg PO DAILY 05/07/21 05/07/21 History Meclizine HCl 25 mg PO TID PRN 05/07/21 05/07/21 History Metoprolol Tartrate [Lopressor] 50 mg PO TID 05/07/21 05/07/21 History Montelukast Sodium [Singulair] 10 mg PO HS 05/07/21 05/07/21 History Omeprazole 20 mg PO DAILY 05/07/21 05/07/21 History Spironolactone 25 mg PO DAILY 05/07/21 05/07/21 History Ubidecarenone [Coenzyme Q10] 50 mg PO DAILY 05/07/21 05/07/21 History dilTIAZem HCL 30 mg PO BID 05/07/21 05/07/21 History guaiFENesin SYRUP 100MG/5ML 200 mg PO Q4H PRN 05/07/21 05/07/21 History [Robitussin] polyethylene glycoL 3350 [Miralax] 17 gm PO DAILY 05/07/21 05/07/21 History Allergies Allergy/AdvReac Type Severity Reaction Status Date / Time iron Allergy Rash/Hives Verified 05/07/21 20:53 Sulfa (Sulfonamide Allergy Rash/Hives Verified 05/07/21 20:53 Antibiotics) Tetanus Vaccines and Toxoid Allergy Swelling Verified 05/07/21 20:53 Physical Exam Vitals: Vital Signs Temp Pulse Resp BP Pulse Ox 05/07/21 21:51 78 17 117/78 98 05/07/21 19:39 97.7 F 05/07/21 19:33 51 L 20 102/76 97 Intake and Output 05/07/21 05/08/21 05/08/21 22:59 06:59 14:59 Other: Weight 113.398 kg Results 05/07/21 20:13 05/07/21 20:13 Cardiac Enzymes 05/07/21 05/07/21 05/07/21 Range/Units 20:13 20:13 23:13 AST 24 (14-36) U/L Troponin I <0.012 <0.012 (0.000-0.034) ng/mL 05/08/21 Range/Units 00:50 AST (14-36) U/L Troponin I <0.012 (0.000-0.034) ng/mL Coagulation 05/07/21 Range/Units 20:13 PT 10.0 (9.0-12.0) sec APTT 21.4 L (22.0-30.0) sec CBC 05/07/21 Range/Units 20:13 WBC 14.8 H (3.8-10.6) k/uL RBC 3.88 (3.80-5.40) m/uL Hgb 12.3 (11.4-16.0) gm/dL Hct 37.6 (34.0-46.0) % Plt Count 186 (150-450) k/uL Comprehensive Metabolic Panel 05/07/21 Range/Units 20:13 Sodium 134 L (137-145) mmol/L Potassium 4.9 (3.5-5.1) mmol/L Chloride 102 (98-107) mmol/L Carbon Dioxide 23 (22-30) mmol/L BUN 49 H (7-17) mg/dL Creatinine 1.48 H (0.52-1.04) mg/dL Glucose 186 H (74-99) mg/dL Calcium 9.4 (8.4-10.2) mg/dL AST 24 (14-36) U/L ALT 17 (4-34) U/L Alkaline Phosphatase 123 (38-126) U/L Total Protein 6.2 L (6.3-8.2) g/dL Albumin 3.4 L (3.5-5.0) g/dL Current Medications Generic Name Dose Route Start Last Admin Trade Name Freq PRN Reason Stop Dose Admin Aspirin 325 mg 05/08/21 09:00 Aspirin 325 Mg Tab PO DAILY ANATOLY Nitroglycerin 0.4 mg 05/07/21 21:58 Nitroglycerin Sl Tabs 0.4 Mg Tab SUBLINGUAL Q5M PRN Chest Pain Intake and Output 05/07/21 05/08/21 05/08/21 22:59 06:59 14:59 Other: Weight 113.398 kg 05/07/21 20:13 05/07/21 20:13
[2021-05-08 16:54] LABS: Glucose,Whole Blood 137 mg/dL (75-99)
[2021-05-08] MEDS: INSULIN ASPART (NovoLOG) 100 UNIT/ML VIAL SQ SCH ×3 (17:14→20:52)
--- NOTE | 2021-05-08 17:17 | P.HPIM ---
History of Present Illness H&P Date: 05/08/21 History of present illness 80 years old female long-term patient of [facility] with past medical history of COPD CHF DVT, atrial fibrillation, history of rheumatoid arthritis obstructive sleep apnea on BiPAP with last hospitalization in January 2024 COVID pneumonitis arm and COPD oxygen exacerbations comes in with acute onset of chest pain that started yesterday while patient was relaxing in bed. Patient is wheelchair bound and mostly lays in her bed. She endorses shortness of breath and chest pain while taking a deep breath. She endorses pain in the abdomen involving the left lower quadrant. Patient denies diarrhea and has bowel movements every day. Patient is on an intensive bowel regimen including Dulcolax rectally, Colace, senna, Fleet enema, milk of magnesia, MiraLAX. Patient has been vaccinated for COVID has not received her booster dose yet. Shortness of breath is mildly improved with updraft treatment. Patient denies any history of coronary artery disease or previous stent placement. She denies any previous cardiac cath versus stress test done. Vitals in the ER patient is afebrile pulse 82 respiratory rate 18 blood pressure 103/65 she wears 3 L of oxygen at baseline. Labs are suggestive of leukocytosis, BUN 49 and creatinine 1.48 troponin 3 negative LDL 49 triglycerides 160, COVID-19 was negative. EKG in the ER suggestive of atrial fibrillation with RVR with premature ventricle and a brain conduction complexes for possible acute pericarditis. ROS Constitutional: Denies chills, Denies fever, Denies lethargy, Denies malaise, Denies poor appetite, Denies weakness, Denies weight loss Eyes: denies decreased vision, denies diplopia, denies discharge, denies pain Ears: deny: decreased hearing Ears, nose, mouth and throat: Denies dental pain, Denies headache, Denies nasal discharge, Denies nose pain Cardiovascular: Endorses chest pain, endorses decreased exercise tolerance, Denies edema, Denies high blood pressure, endorses heart beat, Denies palpitations, Denies paroxysmal nocturnal dyspnea, Denies rapid heart beat, endorses shortness of breath Respiratory: Denies congestion, endorses cough, Denies cough with sputum, endorses dyspnea, endorses home oxygen, Denies wheezing Gastrointestinal: Denies abdominal pain, Denies change in bowel habits, Denies coffee ground emesis, Denies early satiety, Denies excessive gas, Denies heartburn, Denies hematemesis, Denies hematochezia, Denies loss of appetite, Denies nausea, Denies vomiting Genitourinary: Denies dysuria, Denies flank pain, Denies kidney stones, Denies menorrhagia, Denies urgency, Denies urinary frequency Musculoskeletal: Denies gait dysfunction, Denies limitation of motion, Denies morning stiffness, Denies muscle cramps Integumentary: Denies rash, Denies wounds, Denies brittle nails, Denies change in hair/nails, Denies darkening of skin Neurological: Denies balance difficulties, Denies change in speech, Denies double vision, Denies gait dysfunction, Denies loss of vision, Denies motor disturbance, Denies numbness, Denies paralysis, Denies paresthesias, Denies sei zures Psychiatric: Denies anxiety, Denies depression Endocrine: Denies excessive sweating, Denies excessive thirst, Denies high blood sugars, Denies palpitations Hematologic/Lymphatic: Denies easy bruising, Denies lymphadenopathy Social history Pt started smoking, smoked half a pack in 1953 and quit in 2013. Denies alcohol use currently on long-term resident [facility] wheelchair bound. Is unable to use walker. Patient needs left for moving out of bed Family history Mother has history of renal disease Father history of coronary artery disease Physical exam - Constitutional General appearance: cooperative,lying in bed in the ER with significant acute distress, obese - EENT Eyes: anicteric sclerae, PERRLA, normal appearance ENT: hearing grossly normal - Neck Neck: no lymphadenopathy, normal ROM, no other, no rigidity, no stridor, no thyromegaly - Respiratory Respiratory: bilateral:Decreased air entry with pain on deep inspiration - Cardiovascular Rhythm: regular Heart sounds: normal: S1, S2 Abnormal Heart Sounds: no systolic murmur, no diastolic murmur, no rub, no S3 Gallop, no S4 Gallop, no click, no other - Gastrointestinal General gastrointestinal: normal bowel sounds, soft, Tender in the epigastric and the left lower quadrant - Integumentary Integumentary: no rash - Neurologic Neurologic:No gross motor or sensory deficit - Musculoskeletal Musculoskeletal: gait normal, strength equal bilaterally, Significantly weak unable to raise her legs in the bed. - Psychiatric Psychiatric: A&O x's 3, appropriate affect Assessment and plan #1 acute chest pain secondary to acute pericarditis. Colchicine started at 0.6 mg daily by cardiology. EKG suggestive of minimal ST elevation in anterior leads. #2 acute abdominal pain rule out prostatitis and colitis. CT abdomen and pelvis with oral contrast ordered continue Colace and Dulcolax suppository hold Fleet e nemas. #3 COPD not in exacerbation and baseline oxygen continue DuoNeb as needed for shortness of breath. On 3 L oxygen patient currently on baseline oxygen need. #4 atrial fibrillation with RVR remains on Eliquis 2.5 twice daily continue metoprolol twice daily #5 acute CHF exacerbation proBNP ordered daily I&O's and daily weight. switch to Lasix IV 40 twice a day. Echocardiogram suggestive of severe tricuspid regurgitation moderate mitral stenosis, mild aortic stenosis mild intermittent regurgitation with severely dilated left atrium with ejection fraction 55-60% no pericardial effusion #6 type 2 diabetes continue insulin sliding scale along with Levemir 30 subcu at bedtime #7 hyperlipidemia continue atorvastatin 40 mg by mouth daily #8 gout continue allopurinol 300 g by mouth daily #9 hypothyroidism continue levothyroxine and levothyroxine #10 acute kidney injury secondary to ATN on chronic kidney disease stage III B, baseline creatinine 1.3 current creatinine 1.48 continue to monitor #11 chronic dermatitis with previous cellulitis continue topical care with leg elevation. Compression stockings recommended #12 DVT prophylaxis continue Eliquis twice a day #13 CODE STATUS full code 14 disposition patient may need at least 1-2 inpatient nights for stabilization Past Medical History Past Medical History: Atrial Fibrillation, Heart Failure, COPD, Diabetes Mellitus, Deep Vein Thrombosis (DVT), GERD/Reflux, Hyperlipidemia, Hypertension, Osteoarthritis (OA), Pneumonia, Renal Disease, Respiratory Disorder, Rheumatoid Arthritis (RA), Sleep Apnea/CPAP/BIPAP, Thyroid Disorder Additional Past Medical History / Comment(s): Pt recently admitted to [facility] on 07/06/19 with pressure injury bilateral heels/gangrene, acute on chronic chf, cellulitis L lower extremity, bilateral pleural effusion. Other hx: Chronic respiratory failure, home O2 at 2L/NC, possible mild pulmonary HTN, JOSR but no longer uses her device, lower extremity edema/redness/cellulitis, bilateral heel wounds,pt states she currently has a decubitus on her coccyx, IDDM type II, neuropathy bilateral hands/feet, CKD stage III, pt states she has had "bleeding in the kidneys" in the past, anemia, UTI with sepsis, incontinent of urine and occasionally stool, migraines, gout, hypothyroid, vertigo. History of Any Multi-Drug Resistant Organisms: Other MDRO Past Surgical History: Heart Catheterization, Hysterectomy, Joint Replacement, Orthopedic Surgery Additional Past Surgical History / Comment(s): L heel debridement with bx, midline, cardiac cath 2017-treated medically, R total knee replacement, L foot heel spur, sanjana cataracts with lens implants, cystoscopy, EGD, colonoscopy. Past Anesthesia/Blood Transfusion Reactions: No Reported Reaction Past Psychological History: No Psychological Hx Reported Smoking Status: Never smoker Past Alcohol Use History: None Reported Past Drug Use History: None Reported - Past Family History Mother Family Medical History: Renal Disease Father Family Medical History: Coronary Artery Disease (CAD) Medications and Allergies Home Medications Medication Instructions Recorded Confirmed Type Potassium Chloride ER [K-Dur 20] 20 meq PO DAILY 03/22/18 05/07/21 History Atorvastatin [Lipitor] 40 mg PO HS 02/10/19 05/07/21 History Liothyronine Sodium [Cytomel] 5 mcg PO DAILY 02/10/19 05/07/21 History allopurinoL [Zyloprim] 300 mg PO DAILY 02/10/19 05/07/21 History Magnesium Hydroxide [Milk of 7,200 mg PO DAILY PRN 07/13/19 05/07/21 History Magnesia Concentrate] Na Phos,M-B/Na Phos,Di-Ba [Fleet 133 ml RECTAL DAILY PRN 07/13/19 05/07/21 Hi story Adult] bisacodyL [Dulcolax] 10 mg RECTAL DAILY PRN 07/13/19 05/07/21 History Docusate [Colace] 100 mg PO DAILY 09/21/19 05/07/21 History Furosemide [Lasix] 40 mg PO BID 09/21/19 05/07/21 History Insulin Detemir (Levemir) [Levemir] 30 unit SQ HS 09/21/19 05/07/21 History Tiotropium 18 Mcg/Puff [Spiriva] 1 puff INHALATION RT-DAILY inhaler 09/26/19 05/07/21 Rx Apixaban [Eliquis] 2.5 mg PO BID 02/10/20 05/07/21 History traMADol HCL [Ultram] 50 mg PO Q8H PRN #9 tab 02/13/20 05/07/21 Rx Ergocalciferol (Vitamin D2) 1,250 mcg PO Q7D 05/07/21 05/07/21 History [Drisdol (50,000 Iu)] Ferrous Sulfate [Iron] 325 mg PO DAILY 05/07/21 05/07/21 History Gabapentin [Neurontin] 100 mg PO BID 05/07/21 05/07/21 History INSULIN ASPART (NovoLOG) [NovoLOG See Protocol SQ AC-TID 05/07/21 05/07/21 History (formulary)] Ipratropium-Albuterol Nebulize 3 ml INHALATION RT-Q6H 05/07/21 05/07/21 History [Duoneb 0.5 mg-3 mg/3 ml Soln] Isosorbide Mononitrate ER [Imdur] 30 mg PO DAILY 05/07/21 05/07/21 History Levothyroxine Sodium [Synthroid] 50 mcg PO DAILY 05/07/21 05/07/21 History Meclizine HCl 25 mg PO TID PRN 05/07/21 05/07/21 History Metoprolol Tartrate [Lopressor] 50 mg PO TID 05/07/21 05/07/21 History Montelukast Sodium [Singulair] 10 mg PO HS 05/07/21 05/07/21 History Omeprazole 20 mg PO DAILY 05/07/21 05/07/21 History Spironolactone 25 mg PO DAILY 05/07/21 05/07/21 History Ubidecarenone [Coenzyme Q10] 50 mg PO DAILY 05/07/21 05/07/21 History dilTIAZem HCL 30 mg PO BID 05/07/21 05/07/21 History guaiFENesin SYRUP 100MG/5ML 200 mg PO Q4H PRN 05/07/21 05/07/21 History [Robitussin] polyethylene glycoL 3350 [Miralax] 17 gm PO DAILY 05/07/21 05/07/21 History Allergies Allergy/AdvReac Type Severity Reaction Status Date / Time iron Allergy Rash/Hives Verified 05/07/21 20:53 latex Allergy Rash/Hives Verified 05/08/21 15:41 Sulfa (Sulfonamide Allergy Rash/Hives Verified 05/07/21 20:53 Antibiotics) Tetanus Vaccines and Toxoid Allergy Swelling Verified 05/07/21 20:53 Physical Exam Vitals: Vital Signs Temp Pulse Resp BP Pulse Ox 05/07/21 21:51 78 17 117/78 98 05/07/21 19:39 97.7 F 05/07/21 19:33 51 L 20 102/76 97 Intake and Output 05/07/21 05/08/21 05/08/21 22:59 06:59 14:59 Other: Weight 113.398 kg Results CBC & Chem 7: 05/07/21 20:13 05/07/21 20:13 Labs: Abnormal Lab Results - Last 24 Hours (Table) 05/07/21 05/07/21 05/07/21 Range/Units 20:13 20:13 20:13 WBC 14.8 H (3.8-10.6) k/uL Neutrophils # 11.5 H (1.3-7.7) k/uL APTT 21.4 L (22.0-30.0) sec Sodium 134 L (137-145) mmol/L BUN 49 H (7-17) mg/dL Creatinine 1.48 H (0.52-1.04) mg/dL Glucose 186 H (74-99) mg/dL Total Protein 6.2 L (6.3-8.2) g/dL Albumin 3.4 L (3.5-5.0) g/dL
[2021-05-08] MEDS: COLCHICINE 0.6 MG EACH PO SCH (17:58)
[2021-05-08 20:33] LABS: Glucose,Whole Blood 198 mg/dL (75-99)
[2021-05-08] MEDS: FUROSEMIDE 10 MG/ML 4 ML VIAL IV SCH (20:52)
[2021-05-08] MEDS: MONTELUKAST 10 MG TAB PO SCH (20:52)
[2021-05-08] MEDS: GABAPENTIN 100 MG CAP PO SCH (20:52)
[2021-05-08] MEDS: ATORVASTATIN 40 MG TAB PO SCH (20:52)
[2021-05-08] MEDS: INSULIN DETEMIR (LEVEMIR) 100 UNIT/ML SYR SQ SCH (20:53)
[2021-05-08] MEDS ORDERED: PANTOPRAZOLE 40 MG/10 ML VIAL IVP SCH (21:00)
[2021-05-09] MEDS: IPRATROPIUM-ALBUTEROL 3 ML NEB INHALATION SCH ×4 (01:57→21:17)
[2021-05-09] MEDS: LEVOTHYROXINE 50 MCG TAB PO SCH (06:16)
[2021-05-09 06:54] LABS: Glucose,Whole Blood 131 mg/dL (75-99)
[2021-05-09] MEDS ORDERED: NON FORMULARY DRUG (Ubidecarenone [Coenzyme Q10] 50 MG Capsule) PO SCH (09:00)
--- NOTE | 2021-05-09 09:58 | P.PN ---
Subjective HISTORY OF PRESENT ILLNESS: This is a 80 year old female with a past medical history significant for congestive heart failure, hypertension, hyperlipidemia, diabetes, and atrial fibrillation. Patient follows in the office with Dr. Kim but has not been seen since 2018. We have been asked to see the patient in consultation for chest pain. Patient examined at the bedside. Patient resides at [facility]. She states yesterday she began having chest pain while she was laying in bed relaxing. The patient states she was short of breath and it felt like an elephant sitting on her chest. She states the pain is worse with palpation and also with deep inspiration. She states the pain is worse with deep inspiration. She reports a cough but no fever or chills. She reports getting the Covid vaccine earlier this year but has not received the Covid booster yet. 05/09/2021 Patient seen and examined sitting up in bed in no acute distress. She has no further symptoms of chest discomfort. She is coughing with no significant spu sandeep production. Blood pressure 124/76 heart rate 88 afebrile maintaining oxygen saturation on nasal cannula. Telemetry data reviewed, proBNP 1650. Currently maintained on Eliquis 2.5 mg twice a day, aspirin 81 mg daily, atorvastatin 40 mg daily, colchicine 0.6 mg daily, diltiazem 30 mg twice a day, Lasix 40 mg IV twice a day, Imdur 30 mg daily, Lopressor 50 mg 3 times a day and Aldactone 25 mg daily. PHYSICAL EXAM: GENERAL: Well-developed in no acute distress. HEENT: Head is normocephalic. Pupils are equal, round. Sclerae anicteric. Mucous membranes of the mouth are moist. Neck supple. No JVD or thyromegaly LUNGS: Respirations even and unlabored. Expiratory wheezes anteriorly. HEART: Irregular rate and rhythm. S1 and S2 heard. Systolic murmur noted. EXTREMITIES: Normal range of motion. No clubbing or cyanosis. Peripheral pulses intact. No lower extremity edema ASSESSMENT: Chest pain Acute pericarditis Hypertension Hyperlipidemia Diabetes Paroxysmal atrial fibrillation, on Eliquis Chronic diastolic congestive heart failure Valvular heart disease Obesity PLAN: Increase colchicine to 0.6mg BID. Stable for discharge from a cardiac perspective. Follow up with Dr. Adams in 1-2 weeks. Nurse practitioner note has been reviewed by physician. Signing provider agrees with the documented findings, assessment, and plan of care. Objective - Vital Signs Vital signs: Vital Signs Temp 97.5 F L 05/09/21 07:00 Pulse 80 05/09/21 09:00 Resp 20 05/09/21 07:00 BP 124/76 05/09/21 07:00 Pulse Ox 96 05/09/21 07:00 Intake & Output 05/08/21 05/09/21 05/09/21 18:59 06:59 18:59 Intake Total 450 Output Total 550 1200 Balance -550 -750 Weight 113.398 kg Intake: Oral 450 Output: Urine 550 1200 Other: Voiding Method Indwelling Catheter Indwelling Catheter # Bowel Movements 1 - Labs CBC & Chem 7: 05/07/21 20:13 05/07/21 20:13 Labs: Abnormal Lab Results - Last 24 Hours (Table) 05/08/21 05/08/21 05/08/21 Range/Units 00:50 10:12 16:52 POC Glucose (mg/dL) 198 H 137 H (75-99) mg/dL Triglycerides 160.00 H (0.00-149.00) mg/dL HDL Cholesterol 37.20 L (40.00-60.00) mg/dL 05/08/21 05/09/21 Range/Units 20:32 06:52 POC Glucose (mg/dL) 198 H 131 H (75-99) mg/dL Triglycerides (0.00-149.00) mg/dL HDL Cholesterol (40.00-60.00) mg/dL
[2021-05-09] MEDS: INSULIN ASPART (NovoLOG) 100 UNIT/ML VIAL SQ SCH ×4 (10:16→21:25)
[2021-05-09] MEDS: GABAPENTIN 100 MG CAP PO SCH ×2 (10:17→21:24)
[2021-05-09] MEDS: DOCUSATE 100 MG CAP PO SCH (10:17)
[2021-05-09] MEDS: ISOSORBIDE MONONITRATE ER 30 MG TAB.ER.24H PO SCH (10:17)
[2021-05-09] MEDS: allopurinoL 300 MG TAB PO SCH (10:17)
[2021-05-09] MEDS: METOPROLOL TARTRATE 50 MG TAB PO SCH ×3 (10:17→21:24)
[2021-05-09] MEDS: ASPIRIN 81 MG PO SCH (10:17)
[2021-05-09] MEDS: SPIRONOLACTONE 25 MG TAB PO SCH (10:17)
[2021-05-09] MEDS: FERROUS SULFATE 325 MG TAB PO SCH (10:17)
[2021-05-09] MEDS: APIXABAN 2.5 MG TABLET PO SCH ×2 (10:18→21:24)
[2021-05-09] MEDS: DILTIAZEM ORAL 30 MG TAB PO SCH ×2 (10:18→21:24)
[2021-05-09] MEDS: FUROSEMIDE 10 MG/ML 4 ML VIAL IV SCH ×2 (10:18→21:24)
[2021-05-09] MEDS: polyethylene glycoL 3350 17 GM POWD.PACK PO SCH (10:19)
[2021-05-09] MEDS: PANTOPRAZOLE 40 MG/10 ML VIAL IVP SCH (10:19)
[2021-05-09] MEDS: LIOTHYRONINE SODIUM 5 MCG TAB PO SCH ×2 (10:31→10:32)
[2021-05-09] MEDS: COLCHICINE 0.6 MG EACH PO SCH ×2 (10:33→21:24)
[2021-05-09 11:52] LABS: Glucose,Whole Blood 199 mg/dL (75-99)
[2021-05-09 16:44] LABS: Glucose,Whole Blood 250 mg/dL (75-99)
[2021-05-09 19:43] LABS: Glucose,Whole Blood 286 mg/dL (75-99)
[2021-05-09] MEDS: ATORVASTATIN 40 MG TAB PO SCH (21:24)
[2021-05-09] MEDS: MONTELUKAST 10 MG TAB PO SCH (21:24)
[2021-05-09] MEDS: INSULIN DETEMIR (LEVEMIR) 100 UNIT/ML SYR SQ SCH (21:26)
--- NOTE | 2021-05-09 21:35 | P.PN ---
Subjective Progress Note Date: 05/09/2102/05 patient examined bedside. She appears comfortable. Denies any chest pain or shortness of breath. She does have mild shortness of breath which is patient's baseline. She denies any abdominal pain today. She denies any palpitation melena or dark stools. She does have hemorrhoids and does endorses tenesmus. She denies any use of a Fleet enema. Patient's vitals were reviewed patient afebrile pulse 81 respiratory rate 20 blood pressure 120/76 oxygen saturation 96% on 3 L. CAT scan reviewed patient has proctitis, bilateral pleural effusion mild compressive atelectasis layering gallstones left adrenal nodule reflecting adenoma. ProBNP 1650 triglycerides 160 LDL 49. Continues to tolerate colchicine without any side effects. Pending discharge from once cleared by cardiology. Lasix can be switched back to 40 by mouth twice a day. 02/06 Patient examined at bedside, chest pain has resolved. abd pain has resolved. CT scan was concerning for proctitis, patient to avoid fleet enema and local irritant in rectum. Patient was seen by cardiology and cleared for discharge. colchicine increased to 0.6 mg po BID per weight. patient on multiple medication that can interact with colchicine and need to be monitored for side effect. patient is a possibel discharge tomorrow if continues to improve ROS Constitutional: Denies chills, Denies fever, Denies lethargy, Denies malaise, Denies poor appetite, Denies weakness, Denies weight loss Eyes: denies decreased vision, denies diplopia, denies discharge, denies pain Ears: deny: decreased hearing Ears, nose, mouth and throat: Denies dental pain, Denies headache, Denies nasal discharge, Denies nose pain Cardiovascular: resolved chest pain, endorses decreased exercise tolerance, Denies edema, Denies high blood pressure, endorses heart beat, Denies palpitations, Denies paroxysmal nocturnal dyspnea, Denies rapid heart beat, endorses shortness of breath Respiratory: Denies congestion, denies cough, endorses dyspnea, endorses home oxygen, Denies wheezing Gastrointestinal: Denies abdominal pain, Denies change in bowel habits, Denies coffee ground emesis, Denies early satiety, Denies excessive gas, Denies heartburn, Denies hematemesis, Denies hematochezia, Denies loss of appetite, Denies nausea, Denies vomiting Genitourinary: Denies dysuria, Denies flank pain, Denies kidney stones, Denies menorrhagia, Denies urgency, Denies urinary frequency Musculoskeletal: Denies gait dysfunction, Denies limitation of motion, Denies morning stiffness, Denies muscle cramps Integumentary: Denies rash, Denies wounds, Denies brittle nails, Denies change in hair/nails, Denies darkening of skin Neurological: Denies balance difficulties, Denies change in speech, Denies double vision, Denies gait dysfunction, Denies loss of vision, Denies motor d isturbance, Denies numbness, Denies paralysis, Denies paresthesias, Denies seizures Psychiatric: Denies anxiety, Denies depression Endocrine: Denies excessive sweating, Denies excessive thirst, Denies high blood sugars, Denies palpitations Hematologic/Lymphatic: Denies easy bruising, Denies lymphadenopathy Physical exam - Constitutional General appearance: cooperative,lying in bed in the ER with significant acute distress, obese - EENT Eyes: anicteric sclerae, PERRLA, normal appearance ENT: hearing grossly normal - Neck Neck: no lymphadenopathy, normal ROM, no other, no rigidity, no stridor, no thyromegaly - Respiratory Respiratory: bilateral:Decreased air entry with pain on deep inspiration - Cardiovascular Rhythm: regular Heart sounds: normal: S1, S2 Abnormal Heart Sounds: no systolic murmur, no diastolic murmur, positive for rub, no S3 Gallop, no S4 Gallop, no click, no other - Gastrointestinal General gastrointestinal: normal bowel sounds, soft, non tender - Integumentary Integumentary: no rash - Neurologic Neurologic:No gross motor or sensory deficit - Musculoskeletal Musculoskeletal: gait normal, strength equal bilaterally, Significantly weak unable to raise her legs in the bed. - Psychiatric Psychiatric: A&O x's 3, appropriate affect Assessment and plan #1 acute chest pain secondary to acute pericarditis. Colchicine 0.6 mg daily by cardiology. Patient will benefit from increasing the dose to twice daily as patient is overweight EKG suggestive of minimal ST elevation in anterior leads. colchicine increased to 0.6 mg po BID #2 acute abdominal pain resolved mild proctitis on CT abdomen and pelvis with oral contrast continue Colace and Dulcolax suppository hold Fleet enemas. #3 COPD not in exacerbation and baseline oxygen continue DuoNeb as needed for shortness of breath. On 3 L oxygen patient currently on baseline oxygen need. #4 atrial fibrillation with RVR remains on Eliquis 2.5 twice daily continue metoprolol twice daily #5 acute CHF exacerbation proBNP mildly elevated daily I&O's and daily weight. Continue Lasix IV 40 twice a day. Echocardiogram suggestive of severe tricuspid regurgitation moderate mitral stenosis, mild aortic stenosis mild intermittent regurgitation with severely dilated left atrium with ejection fraction 55-60% no pericardial effusion #6 type 2 diabetes continue insulin sliding scale along with Levemir 30 subcu at bedtime #7 hyperlipidemia continue atorvastatin 40 mg by mouth daily #8 gout continue allopurinol 300 g by mouth daily #9 hypothyroidism continue levothyroxine and levothyroxine #10 acute kidney injury secondary to ATN on chronic kidney disease stage III B, baseline creatinine 1.3 current creatinine 1.48 continue to monitor #11 chronic dermatitis with previous cellulitis continue topical care with leg elevation. Compression stockings recommended #12 DVT prophylaxis continue Eliquis twice a day #13 CODE STATUS full code Objective - Vital Signs Vital signs: Vital Signs Temp 98.1 F 05/09/21 01:50 Pulse 61 05/09/21 02:00 Resp 16 05/09/21 02:00 BP 104/64 05/09/21 01:50 Pulse Ox 97 05/09/21 01:50 Intake & Output 05/08/21 05/09/21 05/09/21 18:59 06:59 18:59 Intake Total 450 Output Total 550 1200 Balance -550 -750 Weight 113.398 kg Intake: Oral 450 Output: Urine 550 1200 Other: Voiding Method Indwelling Catheter Indwelling Catheter # Bowel Movements 1 - Labs CBC & Chem 7: 05/07/21 20:13 05/07/21 20:13 Labs: Abnormal Lab Results - Last 24 Hours (Table) 05/08/21 05/08/21 05/08/21 Range/Units 00:50 10:12 16:52 POC Glucose (mg/dL) 198 H 137 H (75-99) mg/dL Triglycerides 160.00 H (0.00-149.00) mg/dL HDL Cholesterol 37.20 L (40.00-60.00) mg/dL 05/08/21 05/09/21 Range/Units 20:32 06:52 POC Glucose (mg/dL) 198 H 131 H (75-99) mg/dL Triglycerides (0.00-149.00) mg/dL HDL Cholesterol (40.00-60.00) mg/dL
[2021-05-10] MEDS: IPRATROPIUM-ALBUTEROL 3 ML NEB INHALATION SCH ×2 (03:24→08:31)
[2021-05-10] MEDS: LEVOTHYROXINE 50 MCG TAB PO SCH (06:26)
[2021-05-10 07:40] LABS: Glucose,Whole Blood 167 mg/dL (75-99)
[2021-05-10 07:57] VITALS: BP 92/61; RESP 16; TEMP 98.4
[2021-05-10 08:46] VITALS: PULSE 84
[2021-05-10] MEDS: polyethylene glycoL 3350 17 GM POWD.PACK PO SCH (09:05)
[2021-05-10] MEDS: allopurinoL 300 MG TAB PO SCH (09:21)
[2021-05-10] MEDS: ISOSORBIDE MONONITRATE ER 30 MG TAB.ER.24H PO SCH (09:21)
[2021-05-10] MEDS: ASPIRIN 81 MG PO SCH (09:21)
[2021-05-10] MEDS: SPIRONOLACTONE 25 MG TAB PO SCH (09:21)
[2021-05-10] MEDS: FERROUS SULFATE 325 MG TAB PO SCH (09:21)
[2021-05-10] MEDS: PANTOPRAZOLE 40 MG/10 ML VIAL IVP SCH (09:21)
[2021-05-10] MEDS: GABAPENTIN 100 MG CAP PO SCH (09:21)
[2021-05-10] MEDS: DILTIAZEM ORAL 30 MG TAB PO SCH (09:21)
[2021-05-10] MEDS: APIXABAN 2.5 MG TABLET PO SCH (09:21)
[2021-05-10] MEDS: COLCHICINE 0.6 MG EACH PO SCH (09:22)
[2021-05-10] MEDS: DOCUSATE 100 MG CAP PO SCH (09:26)
[2021-05-10] MEDS: INSULIN ASPART (NovoLOG) 100 UNIT/ML VIAL SQ SCH (09:32)
[2021-05-10] MEDS: METOPROLOL TARTRATE 50 MG TAB PO SCH (09:32)
[2021-05-10] MEDS: LIOTHYRONINE SODIUM 5 MCG TAB PO SCH (09:32)
[2021-05-10 12:15] LABS: Glucose,Whole Blood 200 mg/dL (75-99)
--- NOTE | 2021-05-10 12:41 | P.DS ---
Providers Date of admission: 05/07/21 21:59 Attending physician: Cal Jackman MD Consults: 05/07/21 21:59 Consult Physician Urgent Consulting Provider: [facility] Consult Reason/Comments: hx CAD, chest pain Do you want consulting provider notified?: Yes, Notify in am Primary care physician: [facility] Course: History of present illness 80 years old female long-term patient of [facility] with past medical history of COPD CHF DVT, atrial fibrillation, history of rheumatoid arthritis obstructive sleep apnea on BiPAP with last hospitalization in January 2024 COVID pneumonitis arm and COPD oxygen exacerbations comes in with acute onset of chest pain that started yesterday while patient was relaxing in bed. Patient is wheelchair bound and mostly lays in her bed. She endorses shortness of breath and chest pain while taking a deep breath. She endorses pain in the abdomen involving the left lower quadrant. Patient denies diarrhea and has bowel movements every day. Patient is on an intensive bowel regimen including Dulcolax rectally, Colace, senna, Fleet enema, milk of magnesia, MiraLAX. Patient has been vaccinated for COVID has not received her booster dose yet. Shortness of breath is mildly improved with updraft treatment. Patient denies any history of coronary artery disease or previous stent placement. She denies any previous cardiac cath versus stress test done. Vitals in the ER patient is afebrile pulse 82 respiratory rate 18 blood pressure 103/65 she wears 3 L of oxygen at baseline. Labs are suggestive of leukocytosis, BUN 49 and creatinine 1.48 troponin 3 negative LDL 49 triglycerides 160, COVID-19 was negative. EKG in the ER suggestive of atrial fibrillation with RVR with premature ventricle and a brain conduction complexes for possible acute pericarditis. 02/05 patient examined bedside. She appears comfortable. Denies any chest pain or shortness of breath. She does have mild shortness of breath which is patient's baseline. She denies any abdominal pain today. She denies any palpitation melena or dark stools. She does have hemorrhoids and does endorses tenesmus. She denies any use of a Fleet enema. Patient's vitals were reviewed patient afebrile pulse 81 respiratory rate 20 blood pressure 120/76 oxygen saturation 96% on 3 L. CAT scan reviewed patient has proctitis, bilateral pleural effusion mild compressive atelectasis layering gallstones left adrenal nodule reflecting adenoma. ProBNP 1650 triglycerides 160 LDL 49. Continues to tolerate colchicine without any side effects. Pending discharge from once cleared by cardiology. Lasix can be switched back to 40 by mouth twice a day. 02/06 Patient examined at bedside, chest pain has resolved. abd pain has resolved. CT scan was concerning for proctitis, patient to avoid fleet enema and local irritant in rectum. Patient was seen by cardiology and cleared for discharge. colchicine increased to 0.6 mg po BID per weight. patient on multiple medication that can interact with colchicine and need to be monitored for side effect. patient is a possibel discharge tomorrow if continues to improve patient examined at bedside. Denies any chest pain. Abdominal pain has resolved. Patient would like to be discharged [place] today. Findings involving the CAT scan were discussed with the patient. Patient has some runny stools were on since the administration of contrast. Side effects of colchicine explained to the patient including nausea, vomiting and diarrhea. If the diarrhea does not get better in next few days patient was told of colchicine need to be reduced to once a day. Patient needs colchicine for at least 3 months and to follow with cardiology as outpatient ROS Constitutional: Denies chills, Denies fever, Denies lethargy, Denies malaise, Denies poor appetite, Denies weakness, Denies weight loss Cardiovascular: resolved chest pain, endorses decreased exercise tolerance, Denies edema, Denies high blood pressure, endorses heart beat, Denies palpitations, Denies paroxysmal nocturnal dyspnea, Denies rapid heart beat, endorses shortness of breath Respiratory: Denies congestion, denies cough, endorses dyspnea, endorses home oxygen, Denies wheezing Gastrointestinal: Denies abdominal pain, Denies change in bowel habits, Denies coffee ground emesis, Denies early satiety, Denies excessive gas, Denies heartburn, Denies hematemesis, Denies hematochezia, Denies loss of appetite, Denies nausea, Denies vomiting endorses diarrhea Genitourinary: Denies dysuria, Denies flank pain, Denies kidney stones, Denies menorrhagia, Denies urgency, Denies urinary frequency Musculoskeletal: Denies gait dysfunction, Denies limitation of motion, Denies morning stiffness, Denies muscle cramps Physical exam - Constitutional General appearance: cooperative,lying in bed in the ER with significant acute distress, obese - Respiratory Respiratory: bilateral:Decreased air entry with pain on deep inspiration - Cardiovascular Rhythm: regular Heart sounds: normal: S1, S2 Abnormal Heart Sounds: no systolic murmur, no diastolic murmur, positive for rub, no S3 Gallop, no S4 Gallop, no click, no other - Gastrointestinal General gastrointestinal: normal bowel sounds, soft, non tender - Integumentary Integumentary: no rash - Psychiatric Psychiatric: A&O x's 3, appropriate affect Discharge diagnoses #1 acute chest pain secondary to acute pericarditis. #2 acute abdominal pain resolved mild proctitis on CT abdomen and pelvis with oral contrast continue Colace and Dulcolax suppository hold Fleet enemas. #3 COPD not in exacerbation and baseline oxygen #4 atrial fibrillation with RVR #5 acute CHF exacerbation #6 type 2 diabetes #7 hyperlipidemia #8 gout #9 hypothyroidism #10 acute kidney injury secondary to ATN on chronic kidney disease stage III B, baseline creatinine 1.3 #11 chronic dermatitis with previous cellulitis continue topical care with leg elevation. Disposition discharged to [facility] 30 minutes was spent making and assessment and plan and counseling the patient Patient Condition at Discharge: Stable Plan - Discharge Summary New Discharge Prescriptions: New Colchicine [Colcrys] 0.6 mg PO DAILY #90 tablet Continue Potassium Chloride ER [K-Dur 20] 20 meq PO DAILY Atorvastatin [Lipitor] 40 mg PO HS allopurinoL [Zyloprim] 300 mg PO DAILY Liothyronine Sodium [Cytomel] 5 mcg PO DAILY bisacodyL [Dulcolax] 10 mg RECTAL DAILY PRN PRN Reason: Constipation Magnesium Hydroxide [Milk of Magnesia Concentrate] 7,200 mg PO DAILY PRN PRN Reason: Constipation Docusate [Colace] 100 mg PO DAILY Furosemide [Lasix] 40 mg PO BID Insulin Detemir (Levemir) [Levemir] 30 unit SQ HS Tiotropium 18 Mcg/Puff [Spiriva] 1 puff INHALATION RT-DAILY inhaler Apixaban [Eliquis] 2.5 mg PO BID traMADol HCL [Ultram] 50 mg PO Q8H PRN #9 tab PRN Reason: Pain Omeprazole 20 mg PO DAILY Levothyroxine Sodium [Synthroid] 50 mcg PO DAILY Ipratropium-Albuterol Nebulize [Duoneb 0.5 mg-3 mg/3 ml Soln] 3 ml INHALATION RT-Q6H Ferrous Sulfate [Iron] 325 mg PO DAILY dilTIAZem HCL 30 mg PO BID Spironolactone 25 mg PO DAILY INSULIN ASPART (NovoLOG) [NovoLOG (formulary)] See Protocol SQ AC-TID polyethylene glycoL 3350 [Miralax] 17 gm PO DAILY Montelukast Sodium [Singulair] 10 mg PO HS Metoprolol Tartrate [Lopressor] 50 mg PO TID Meclizine HCl 25 mg PO TID PRN PRN Reason: DIZZINESS Isosorbide Mononitrate ER [Imdur] 30 mg PO DAILY guaiFENesin SYRUP 100MG/5ML [Robitussin] 200 mg PO Q4H PRN PRN Reason: Cough Gabapentin [Neurontin] 100 mg PO BID Ergocalciferol (Vitamin D2) [Drisdol (50,000 Iu)] 1,250 mcg PO Q7D Ubidecarenone [Coenzyme Q10] 50 mg PO DAILY Discontinued Na Phos,M-B/Na Phos,Di-Ba [Fleet Adult] 133 ml RECTAL DAILY PRN PRN Reason: Constipation Discharge Medication List Potassium Chloride ER [K-Dur 20] 20 meq PO DAILY 03/22/18 [History] Atorvastatin [Lipitor] 40 mg PO HS 02/10/19 [History] Liothyronine Sodium [Cytomel] 5 mcg PO DAILY 02/10/19 [History] allopurinoL [Zyloprim] 300 mg PO DAILY 02/10/19 [History] Magnesium Hydroxide [Milk of Magnesia Concentrate] 7,200 mg PO DAILY PRN 07/13/19 [History] bisacodyL [Dulcolax] 10 mg RECTAL DAILY PRN 07/13/19 [History] Docusate [Colace] 100 mg PO DAILY 09/21/19 [History] Furosemide [Lasix] 40 mg PO BID 09/21/19 [History] Insulin Detemir (Levemir) [Levemir] 30 unit SQ HS 09/21/19 [History] Tiotropium 18 Mcg/Puff [Spiriva] 1 puff INHALATION RT-DAILY inhaler 09/26/19 [Rx] Apixaban [Eliquis] 2.5 mg PO BID 02/10/20 [History] traMADol HCL [Ultram] 50 mg PO Q8H PRN #9 tab 02/13/20 [Rx] Ergocalciferol (Vitamin D2) [Drisdol (50,000 Iu)] 1,250 mcg PO Q7D 05/07/21 [History] Ferrous Sulfate [Iron] 325 mg PO DAILY 05/07/21 [History] Gabapentin [Neurontin] 100 mg PO BID 05/07/21 [History] INSULIN ASPART (NovoLOG) [NovoLOG (formulary)] See Protocol SQ AC-TID 05/07/21 [History] Ipratropium-Albuterol Nebulize [Duoneb 0.5 mg-3 mg/3 ml Soln] 3 ml INHALATION RT-Q6H 05/07/21 [History] Isosorbide Mononitrate ER [Imdur] 30 mg PO DAILY 05/07/21 [History] Levothyroxine Sodium [Synthroid] 50 mcg PO DAILY 05/07/21 [History] Meclizine HCl 25 mg PO TID PRN 05/07/21 [History] Metoprolol Tartrate [Lopressor] 50 mg PO TID 05/07/21 [History] Montelukast Sodium [Singulair] 10 mg PO HS 05/07/21 [History] Omeprazole 20 mg PO DAILY 05/07/21 [History] Spironolactone 25 mg PO DAILY 05/07/21 [History] Ubidecarenone [Coenzyme Q10] 50 mg PO DAILY 05/07/21 [History] dilTIAZem HCL 30 mg PO BID 05/07/21 [History] guaiFENesin SYRUP 100MG/5ML [Robitussin] 200 mg PO Q4H PRN 05/07/21 [History] polyethylene glycoL 3350 [Miralax] 17 gm PO DAILY 05/07/21 [History] Colchicine [Colcrys] 0.6 mg PO DAILY #90 tablet 05/09/21 [Rx] Follow up Appointment(s)/Referral(s): Lv Adams DO [STAFF PHYSICIAN] - 2 Weeks Dwain Weathers MD [Primary Care Provider] - 1-2 days Discharge Disposition: TRANSFER TO SNF/ECF
[2021-05-11] MEDS ORDERED: PANTOPRAZOLE 40 MG TABLET PO SCH (07:30)
== END 2021-05-10 14:25 ==
LOC: EC 19:31 → 6NMEDSUR 21:59
PROVIDERS: ADMIT Internal Medicine; ATTEND Internal Medicine
DX: I30.9 Acute pericarditis, unspecified (principal); J44.9 Chronic obstructive pulmonary disease, unspecified; I48.0 Paroxysmal atrial fibrillation; G47.33 Obstructive sleep apnea (adult) (pediatric); E11.22 Type 2 diabetes mellitus with diabetic chronic kidney disease; Z20.822 Contact with and (suspected) exposure to COVID-19; N17.0 Acute kidney failure with tubular necrosis; I13.0 Hypertensive heart and chronic kidney disease with heart failure and stage 1 through stage 4 chronic kidney disease, or unspecified chronic kidney disease; N18.32 Chronic kidney disease, stage 3b; I50.32 Chronic diastolic (congestive) heart failure; I25.10 Atherosclerotic heart disease of native coronary artery without angina pectoris; E78.5 Hyperlipidemia, unspecified; M10.9 Gout, unspecified; E03.9 Hypothyroidism, unspecified; E66.9 Obesity, unspecified; Z68.33 Body mass index [BMI] 33.0-33.9, adult; J98.11 Atelectasis; E27.8 Other specified disorders of adrenal gland; M19.90 Unspecified osteoarthritis, unspecified site; M06.9 Rheumatoid arthritis, unspecified; K80.20 Calculus of gallbladder without cholecystitis without obstruction; E11.42 Type 2 diabetes mellitus with diabetic polyneuropathy; K21.9 Gastro-esophageal reflux disease without esophagitis; R32 Unspecified urinary incontinence; K64.9 Unspecified hemorrhoids; M77.30 Calcaneal spur, unspecified foot; L30.9 Dermatitis, unspecified; Z79.4 Long term (current) use of insulin; Z79.01 Long term (current) use of anticoagulants; Z79.82 Long term (current) use of aspirin; Z79.890 Hormone replacement therapy; Z79.899 Other long term (current) drug therapy; Z87.01 Personal history of pneumonia (recurrent); Z87.891 Personal history of nicotine dependence; Z86.16 Personal history of COVID-19; Z87.440 Personal history of urinary (tract) infections; Z16.24 Resistance to multiple antibiotics; Z96.651 Presence of right artificial knee joint; Z98.41 Cataract extraction status, right eye; Z98.42 Cataract extraction status, left eye; Z96.1 Presence of intraocular lens; Z90.710 Acquired absence of both cervix and uterus; Z82.49 Family history of ischemic heart disease and other diseases of the circulatory system; Z99.3 Dependence on wheelchair; Z86.69 Personal history of other diseases of the nervous system and sense organs
CPT/HCPCS: 99285; 96376 ×2; 96374; 96375; 36415; 94640 ×4; 93005 ×2; 93306; 83880; 80061; 80053; 83735; 84484 ×2; 85025; 85610; 85730; 87635; 71046; 74176; G0378 ×4; J1940 ×2; C9113 ×2